=== PATIENT | male | born 1950 | race Two or more races ===

== ENCOUNTER 2020-05-10 13:49 | Outpatient (REF) | payer MEDICARE, MEDICAID, SELFPAY ==
--- NOTE | 2020-05-10 | MR_ITS ---
EXAMINATION: UNENHANCED MRI OF THE BRAIN. CLINICAL INFORMATION: Dizziness. Giddiness. COMPARISON: MRI brain 05/05/2017. TECHNIQUE: Routine unenhanced MRI of the brain. FINDINGS: No intracranial hemorrhage, tumors or acute infarcts are noted. Subcentimeter cystic foci of encephalomalacia suspicious for chronic lacunar infarcts are noted within the left parasagittal ventral alondra and bilateral thalami. A moderate number of supratentorial scattered periventricular and subcortical white matter T2 hyperintensities are noted and are suspicious for chronic small vessel ischemic changes. A mild etat crible configuration of the lentiform nuclei is noted. Patchy T2 hyperintensities are present throughout the thalami. The cervicomedullary junction cerebellar tonsils are normal in configuration. No marrow signal abnormalities are identified. Grossly normal flow-related signal intensity is identified in the major intrarenal vessels and dural sinuses. Mild bilateral proptosis is identified. Minimal retained secretions are noted within the velar recess of the maxillary sinus and in a small number of posterior right ethmoid air cells. IMPRESSION: 1. No acute abnormalities identified. 2. Moderate-marked white matter chronic small vessel ischemic disease and multiple chronic lacunar infarcts.
== END 2020-05-10 13:50 | disposition home or self-care (01) ==
LOC: HO.MRI 13:49
PROVIDERS: PCP Family Medicine; Visit Provider Family Medicine
DX: R42 Dizziness and giddiness (principal)
CPT/HCPCS: 70551

== ENCOUNTER 2020-05-14 07:37 | Outpatient (REF) | payer MEDICARE, MEDICAID, SELFPAY ==
--- NOTE | 2020-05-14 10:00 | CT_ITS ---
EXAMINATION: CT ABDOMEN AND PELVIS WITH CONTRAST CLINICAL INFORMATION: Abnormal weight loss. COMPARISON: None TECHNIQUE: Multidetector volumetric images were obtained from the superior aspect of the liver through the pubic symphysis following administration 85 mL of Omnipaque 350 intravenous contrast. Sagittal and coronal reformatted images were obtained on the technologist's workstation. Oral contrast: No This CT examination was performed using dose optimization techniques as appropriate, variously including the following: *Automated exposure control *Adjustment of mA and/or kV according to patient size (this includes techniques or standardized protocols for targeted exams where dose is matched to indication/reason for exam; i.e. extremities or head) *Use of iterative reconstruction technique DLP: 630 mGy-cm FINDINGS: LUNG BASES: There is right basal atelectasis/scarring. There is a right diaphragmatic pleural calcification. The heart size is normal. LIVER, GALLBLADDER, AND BILIARY TREE: The liver is normal in size, shape, and attenuation. No focal hepatic lesion or biliary ductal dilatation is present. The gallbladder has been surgically removed. PANCREAS: Unremarkable. SPLEEN: Unremarkable. ADRENAL GLANDS: There is a right adrenal gland lesion measuring 1.9 x 1.5 x 2.2 cm and approximately 69 Hounsfield units. The left adrenal gland appears unremarkable. KIDNEYS AND URETERS: Both kidneys are normal size with slight lobulation and mild cortical thinning, mid and lower poles, right kidney and lower pole left kidney. There is punctate 2 mm calcifications in the midpole of the right kidney; question calcification versus tiny stone. There are bilateral nonenhancing renal cysts. No enhancing renal mass or hydronephrosis seen. BLADDER: The bladder is nondistended with mild diffuse bladder wall thickening but no radiopaque calculi. GASTROINTESTINAL TRACT: There is scattered stool, oral contrast and gas seen throughout the colon without any significant distention. The small bowel loops are normal course and caliber. The appendix is normal caliber. Stool-filled redundant sigmoid colon is unremarkable. ABDOMINAL WALL: No significant hernia is appreciated. LYMPH NODES: Normal. VASCULAR: Mild atherosclerotic changes of abdominal aorta and iliac arteries are noted without aneurysmal dilatation. PELVIC VISCERA: The prostate gland is mildly enlarged. The periprostatic fat planes are preserved. OSSEOUS STRUCTURES: There is mild degenerative disc changes L5-S1 disc level with ventral spondylosis. No lytic process. IMPRESSION: 1. Moderate constipation without obstruction. 2. Slightly lobulated kidneys with cortical thinning and likely scarring. There are bilateral renal cysts. Punctate radiopaque calculi, midpole right kidney, without caliectasis or hydronephrosis. 3. Mild bladder wall thickening secondary to moderate prostate enlargement and likely obstruction. Correlate with urology. 4. No abnormal lymph nodes seen.
[2020-05-14] MEDS: iohexoL 350 MG/ML 100 ML INFUS..BTL 85 ML IV (10:23)
[2020-05-14] MEDS: Barium Sulfate Oral (Vanilla) 450 ML ORAL.SUSP 900 ML PO (10:25)
== END 2020-05-14 07:38 | disposition home or self-care (01) ==
LOC: HO.CT 07:37
PROVIDERS: PCP Family Medicine; Visit Provider Family Medicine
DX: R63.4 Abnormal weight loss (principal)
CPT/HCPCS: 74177

== ENCOUNTER 2020-05-17 08:57 | Outpatient (REF) | payer MEDICARE, MEDICAID, SELFPAY ==
--- NOTE | 2020-05-17 09:11 | XR_ITS ---
EXAMINATION: XR CHEST CLINICAL INFORMATION: Nonspecific reaction to Gamma treatment COMPARISON: None TECHNIQUE: 2 views of the chest were obtained. FINDINGS: No significant abnormality is noted involving the heart, lungs, mediastinum, bony thorax or soft tissues. XR/XR chest 2V IMPRESSION: Unremarkable chest examination.
== END 2020-05-17 08:58 | disposition home or self-care (01) ==
LOC: HO.XRAY 08:57
PROVIDERS: PCP Family Medicine; Visit Provider Internal Medicine
DX: R76.12 Nonspecific reaction to cell mediated immunity measurement of gamma interferon antigen response without active tuberculosis (principal)
CPT/HCPCS: 71046

== ENCOUNTER 2020-05-27 08:13 | Outpatient (REF) | payer MEDICARE, MEDICAID, SELFPAY ==
--- NOTE | 2020-05-27 08:40 | XR_ITS ---
EXAMINATION: XR CHEST CLINICAL INFORMATION: Nonspecific reaction. COMPARISON: 05/17/2020 chest radiographs. TECHNIQUE: 2 views of the chest were obtained. FINDINGS: No significant abnormality is noted involving the heart, lungs, mediastinum, bony thorax or soft tissues. XR/XR chest 2V IMPRESSION: No acute cardiopulmonary process.
[2020-05-30 09:32] LABS: TSpotTB Negative (SeeBelow)
== END 2020-05-27 08:14 | disposition home or self-care (01) ==
LOC: HO.LAB 08:13
PROVIDERS: Absent Provider Internal Medicine; PCP Family Medicine; Visit Provider Family Medicine
DX: R76.12 Nonspecific reaction to cell mediated immunity measurement of gamma interferon antigen response without active tuberculosis (principal)
CPT/HCPCS: 71046; 86481

== ENCOUNTER 2020-06-03 08:09 | Outpatient (REF) | payer MEDICARE, MEDICAID, SELFPAY ==
--- NOTE | 2020-06-03 08:14 | CT_ITS ---
EXAMINATION: CT CHEST WITH CONTRAST CLINICAL INFORMATION: Abnormal weight loss. COMPARISON: Plain film studies of 05/27/2020 and 05/17/2020. TECHNIQUE: Multidetector volumetric CT imaging of the chest was obtained after the administration of 65 mL of Omnipaque 350 intravenous contrast without immediate adverse reactions. Axial MIP volume rendering provided. Sagittal and coronal reformatted images were obtained. This CT examination was performed using dose optimization techniques as appropriate, variously including the following: *Automated exposure control *Adjustment of mA and/or kV according to patient size (this includes techniques or standardized protocols for targeted exams where dose is matched to indication/reason for exam; i.e. extremities or head) *Use of iterative reconstruction technique DLP: 182 mGy-cm FINDINGS: LUNGS: The central airways are patent. There is bronchial wall thickening present without bronchiectasis. No significant confluent parenchymal disease identified. There are some scattered calcified granulomas seen bilaterally. There are regions of pleural-parenchymal scarring present within the right lower lobe and lingula. No significant changes of emphysema appreciated. There is a 4 mm noncalcified nodular density seen within the right upper lobe on image 172 of 575. There is a noncalcified subpleural density seen within the right upper lobe on image 124 of 575 measuring 5 mm in diameter. There is a 6 mm noncalcified nodule seen within the right lower lobe on image 272 of 575. There is a 4 mm noncalcified nodule within the right lower lobe on image 284 of 575. MEDIASTINUM: Thyroid gland appears unremarkable. Heart normal size. No evidence of thoracic aortic aneurysm or thoracic aortic dissection. No significant calcified plaque is present. No pericardial effusion. There are some calcified lymph nodes present. No mediastinal or hilar lymphadenopathy. PLEURA: There is no pleural effusion. No pleural mass or thickening. AXILLA: No lymphadenopathy. UPPER ABDOMEN: There is a 2.2 x 1.6 cm right adrenal gland mass. OSSEOUS STRUCTURES: No destructive bony lesions identified. CT/CT chest w con IMPRESSION: 2.2 x 1.6 cm right adrenal gland mass. Adrenal gland CT study with washout could be performed for further evaluation. Old granulomatous disease. A few scattered nodules measuring up to 6 mm in diameter. According to the UPDATED 2017 Fleischner Society recommendations, the advised follow-up imaging for multiple solid nodules, the largest measuring 6 mm or greater, is: LOW RISK PATIENT: CT at 3-6 months, then consider CT at 18-24 months. HIGH RISK PATIENT: CT at 3-6 months, then at 18-24 months.
[2020-06-03] MEDS: iohexoL 350 MG/ML 100 ML INFUS..BTL IV (09:40)
== END 2020-06-03 08:10 | disposition home or self-care (01) ==
LOC: HO.CT 08:09
PROVIDERS: PCP Family Medicine; Visit Provider Family Medicine
DX: R31.9 Hematuria, unspecified (principal); E11.9 Type 2 diabetes mellitus without complications; I10 Essential (primary) hypertension; R63.4 Abnormal weight loss
CPT/HCPCS: 71260; Q9967

== ENCOUNTER 2020-08-28 16:34 | Outpatient (REF) | payer MEDICARE, MEDICAID, SELFPAY ==
--- NOTE | 2020-08-28 | XR_ITS ---
EXAMINATION: XR CHEST CLINICAL INFORMATION: Chronic obstructive pulmonary disease with acute exacerbation COMPARISON: Chest x-ray 05/27/2020. CT chest 06/03/2020 TECHNIQUE: 2 views of the chest were obtained. FINDINGS: No significant abnormality is noted involving the heart, lungs, mediastinum, bony thorax or soft tissues. XR/XR chest 2V IMPRESSION: Unremarkable examination.
== END 2020-08-28 16:35 | disposition home or self-care (01) ==
LOC: HO.XRAY 16:34
PROVIDERS: PCP Family Medicine; Visit Provider Family Medicine
DX: J44.1 Chronic obstructive pulmonary disease with (acute) exacerbation (principal)
CPT/HCPCS: 71046

== ENCOUNTER → 2020-09-12 10:58 | Outpatient (BNVA) | payer MEDICARE, MEDICAID, SELFPAY | PROVIDERS: PCP Family Medicine; Visit Provider Internal Medicine | DX: E66.9 Obesity, unspecified (principal); G47.33 Obstructive sleep apnea (adult) (pediatric); J44.9 Chronic obstructive pulmonary disease, unspecified; J30.9 Allergic rhinitis, unspecified | CPT/HCPCS: 99212 ==

== ENCOUNTER 2020-10-12 14:47 | Emergency (ER) | payer MEDICARE, MEDICAID, SELFPAY ==
--- NOTE | 2020-10-12 14:53 | ECG_ITS ---
Test Reason : CHEST PAIN Blood Pressure : / mmHG Vent. Rate : 080 BPM Atrial Rate : 080 BPM P-R Int : 142 ms QRS Dur : 084 ms QT Int : 364 ms P-R-T Axes : 044 -33 -09 degrees QTc Int : 419 ms Poor data quality Normal sinus rhythm Left axis deviation Abnormal ECG When compared with ECG of 20-JAN-2018 13:57, QRS axis Shifted left Referred By: Generic ED Physician Electronically Signed By:OLGA MCCORMICK MD
[2020-10-12 15:02] VITALS: BP 162/83; PULSE 88; RESP 20; TEMP 37; O2SAT 95
[2020-10-12 15:43] LABS: COVID-19 Test Negative (Negative); IDNOW Serial# 9DD0AD1C
[2020-10-12 15:48] VITALS: BMI 34.7
--- NOTE | 2020-10-12 16:10 | ED_ITS ---
HPI - Anxiety General Chief Complaint: Anxiety Stated Complaint: CHEST PAIN Time Seen by Provider: 10/12/20 15:56 Source: patient Mode of arrival: ambulatory History of Present Illness HPI narrative: Patient came to the hospital to see his was admitted with COVID pneumonia become very anxious when he came was very emotional felt overwhelmed was feeling short of breath and palpitation which resolved after few minutes of arrival on arrival patient heart rate was 80 beats per minute blood pressure went to 162/83 after electing for some time patient is much calmer and better would like to go home denies any chest pain at this time MD complaint: anxiety Onset (ago): minute(s) Severity: mild Related Data Home Medications Medication Instructions Recorded Confirmed albuterol sulfate 90 mcg/actuation INHALATION 09/12/20 aerosol inhaler atorvastatin 40 mg tablet mg PO 09/12/20 baclofen 10 mg tablet mg PO 09/12/20 budesonide-formoterol HFA 160 INHALATION 09/12/20 mcg-4.5 mcg/actuation aerosol inhaler duloxetine 60 mg capsule,delayed mg PO 09/12/20 release finasteride 5 mg tablet mg PO 09/12/20 fluticasone propionate 50 INTRANASAL 09/12/20 mcg/actuation nasal spray,suspension furosemide 40 mg tablet mg PO 09/12/20 gabapentin 100 mg capsule mg PO 09/12/20 hydralazine 50 mg tablet mg PO 09/12/20 isosorbide mononitrate 60 mg mg PO 09/12/20 tablet,extended release 24 hr levothyroxine 75 mcg tablet mcg PO 09/12/20 lisinopril 10 mg tablet mg PO 09/12/20 meclizine 25 mg tablet mg PO 09/12/20 metformin 850 mg tablet mg PO 09/12/20 metoprolol succinate 100 mg mg PO 09/12/20 tablet,extended release 24 hr montelukast 10 mg tablet mg PO 09/12/20 nitroglycerin 0.4 mg sublingual mg SUBLINGUAL 09/12/20 tablet quetiapine 100 mg tablet mg PO 09/12/20 tamsulosin 0.4 mg capsule mg PO 09/12/20 temazepam 30 mg capsule mg PO 09/12/20 tiotropium bromide 18 mcg capsule INHALATION 09/12/20 with inhalation device trazodone 150 mg tablet mg PO 09/12/20 Previous Rx's Medication Instructions Recorded albuterol sulfate 2.5 mg INHALATION Q4-6H PRN 30 09/12/20 Days #75 ml Allergies Allergy/AdvReac Type Severity Reaction Status Date / Time No Known Drug Allergies Allergy Unknown NKDA Verified 09/12/20 11:27 Environmental Allergy Unknown RUNNING Uncoded 04/11/20 14:58 NOSE, ITCHING SNEEZING Review of Systems Review of Systems: Constitutional : No Weight loss, No Fever, No Chills ENT/Mouth : No sore throat, No Rhinorrhea Eyes: No Eye Pain, No Swelling Cardiovascular : No Chest Pain, no palpitations Respiratory : No Cough, No Sputum, + shortness of breath Gastrointestinal : no Nausea, No Vomiting, No Diarrhea, No abdominal Pain, no black stools Genitourinary : No Dysuria, No Urinary Frequency Musculoskeletal : No joint pain, No Myalgias, No Joint Swelling Skin : No Skin Lesions, No rash Neuro : No Weakness, No Numbness, No Dizziness, No Headache Psych : + Anxiety/Panic, No Depression Heme/Lymph: No Bruising, No Lymphadenopathy Endocrine : No Polyuria, No Polydipsia All other systems reviewed and are negative FOR[facility]LY [facility] Past Medical History Medical History Allergic rhinitis COPD (chronic obstructive pulmonary disease) Hypertension Obesity (BMI 30-39.9) LUCA (obstructive sleep apnea) Social History Social History Advance Directives: Yes Advance Directives on File: Yes Advance Directives Date on File: 05/14/20 Physical Exam Vital Signs: Vital Signs: Last Vital Signs Temp 98.6 F 10/12/20 15:02 Pulse 79 10/12/20 16:26 Resp 18 10/12/20 16:26 BP 149/89 H 10/12/20 16:26 Pulse Ox 98 10/12/20 16:26 Body Mass Index 34.7 Appearance: Alert. Oriented X3. No acute distress. Relaxed now Eyes: Pupils equal, round and reactive to light. ENT: Pharynx normal. Neck: Normal inspection. Neck supple. CVS: Normal heart rate and rhythm. Pulses normal. Respiratory: No respiratory distress. Breath sounds normal. Abdomen: Soft and nontender. Bowel sounds are present, no mass palpable, no CVA tenderness Skin: Skin warm and dry. Normal skin color. Normal skin turgor. Extremities: No lower extremity edema. Neuro: Oriented X 3. No motor deficit. No sensory deficit. MDM - Anxiety MDM Narrative Medical decision making narrative: Patient with acute anxiety stable vitals feeling much better after resting for few minutes COVID test was done which was negative and EKG was negative for any acute ischemia will discharge patient home Differential Diagnosis Differential diagnosis: Likely hyperventilation and acute anxiety Lab Data Labs: Lab Results 10/12/20 Range/Units 15:10 COVID-19 ([facility]) Negative (Negative) COVID-19 Clin Com See Note ECG Data Attestation: I personally reviewed and interpreted this ECG as follows: Interpretation: Normal sinus rhythm heart rate 80 beats per minute left axis deviation normal interval normal ST-T wave, no acute ischemia Discharge Plan Discharge Clinical Impression: Acute anxiety Patient Disposition: Home, Self-Care Instructions: Anxiety (ED) Additional Instructions: Rest at home follow-up with PCP if any concerns Prescriptions: No Action atorvastatin 40 mg tablet PO RF: 0 baclofen 10 mg tablet PO RF: 0 meclizine 25 mg tablet PO RF: 0 metformin 850 mg tablet PO RF: 0 duloxetine 60 mg capsule,delayed release(DR/EC) PO RF: 0 levothyroxine 75 mcg tablet PO RF: 0 albuterol sulfate 90 mcg/actuation HFA aerosol inhaler inhalation RF: 0 trazodone 150 mg tablet PO RF: 0 temazepam 30 mg capsule PO RF: 0 quetiapine 100 mg tablet PO RF: 0 isosorbide mononitrate 60 mg tablet extended release 24 hr PO RF: 0 fluticasone propionate 50 mcg/actuation spray,suspension intranasal RF: 0 montelukast 10 mg tablet PO RF: 0 hydralazine 50 mg tablet PO RF: 0 finasteride 5 mg tablet PO RF: 0 tamsulosin 0.4 mg capsule PO RF: 0 gabapentin 100 mg capsule PO RF: 0 metoprolol succinate 100 mg tablet extended release 24 hr PO RF: 0 lisinopril 10 mg tablet PO RF: 0 budesonide-formoterol 160-4.5 mcg/actuation HFA aerosol inhaler inhalation RF: 0 Spiriva with HandiHaler 18 mcg capsule, w/inhalation device inhalation RF: 0 furosemide 40 mg tablet PO RF: 0 nitroglycerin 0.4 mg tablet, sublingual sublingual RF: 0 albuterol sulfate 2.5 mg /3 mL (0.083 %) solution for nebulization 2.5 mg inhalation Q4-6H PRN (Reason: shortness of breath or wheezing) 30 Days Qty: 75 RF: 1
[2020-10-12 16:26] VITALS: BP 149/89; PULSE 79; RESP 18; O2SAT 98
== END 2020-10-12 18:00 | disposition home or self-care (01) ==
PROVIDERS: Emergency Provider Internal Medicine; PCP Family Medicine
DX: R07.9 Chest pain, unspecified (principal); F41.1 Generalized anxiety disorder; F43.0 Acute stress reaction; I10 Essential (primary) hypertension; Z20.822 Contact with and (suspected) exposure to COVID-19; Z79.899 Other long term (current) drug therapy
CPT/HCPCS: 36415; 87635; 93005; 99282; 99283

== ENCOUNTER 2020-11-01 15:33 | Outpatient (REF) | payer MEDICARE, MEDICAID, SELFPAY ==
--- NOTE | ~2020-11-01 | US_ITS ---
EXAMINATION: US SOFT TISSUE NECK CLINICAL INFORMATION: Swelling, mass neck. COMPARISON: None. TECHNIQUE: Ultrasound of the left neck soft tissues inferior to ear and right side for comparison is performed with high- frequency covarrubias-scale imaging and color Doppler. FINDINGS: Imaging through the left infra-auricular region is a small isoechoic lump to surrounding fat measuring 3.1 x 1.3 x 3.3 cm. It is noncompressible and characteristics of a lymph node. This may represent a small lipoma no vascularity seen within. US/US soft tiss head and/or neck IMPRESSION: Small lump inferior to left ear, likely lipoma. It corresponds to the palpable lump as per the patient.
== END 2020-11-01 15:34 | disposition home or self-care (01) ==
LOC: HO.US 15:33
PROVIDERS: Visit Provider Registered Nurse Community Health
DX: R22.1 Localized swelling, mass and lump, neck (principal)
CPT/HCPCS: 76536

== ENCOUNTER 2020-11-25 09:57 | Day surgery (SDC) | payer MEDICARE, MEDICAID, SELFPAY ==
--- NOTE | 2020-11-20 12:27 | MHC.SHP ---
Pre-Procedural Eval Section A The patient is an INPATIENT: No The History & Physical has been completed within 30 days and I have reviewed it.: Yes Section B Chief Complaint: Cataract Right Eye Allergies: Allergies Allergy/AdvReac Type Severity Reaction Status Date / Time Environmental Allergy Intermediate RUNNING Uncoded 10/30/20 09:05 NOSE, ITCHING SNEEZING Plan Diagnosis/Plan: Unchanged I have reviewed the history and physical and performed a pertinent physical examination on my patient. No changes have occurred unless specified.
[2020-11-25 12:03] VITALS: BMI 34.3
[2020-11-25 12:15] LABS: Glucose, Whole Blood 106 mg/dL (60-115)
[2020-11-25] MEDS: Tetracaine HCl/PF 0.5% Oph Sol 4 ML DROPS 1 DROP EYE-RIGHT (12:19)
[2020-11-25 12:21] VITALS: BP 155/93; PULSE 61; RESP 16; TEMP 36.6; O2SAT 97
[2020-11-25] MEDS: Tropicamide 1 % Ophth Sol 3 ML BTL 1 DROP EYE-RIGHT ×3 (12:25→12:41)
[2020-11-25] MEDS: Phenylephrine HCL 2.5% Oph SoL 2 ML BOTTLE 1 DROP EYE-RIGHT ×3 (12:33→12:43)
[2020-11-25] MEDS: Lactated Ringers 500 ML 50 ML IV (12:44)
--- NOTE | 2020-11-25 12:59 | P.CONAN_ITS ---
HPI - Anesthesia Eval Consult details Narrative: 70 yo male patient here for Right cataract extraction, IOL implan tation PMFSH Active Problems Active Problems: All Active Problems (Updated 10/30/20 @ 09:00 by Jesi Mancera) Allergic rhinitis (Acute) COPD (chronic obstructive pulmonary disease) (Acute) LUCA (obstructive sleep apnea) (Acute) Obesity (BMI 30-39.9) (Acute) Past Medical History Medical History (Updated 11/25/20 @ 13:15 by Evelin Garrett) Allergic rhinitis Asthma BPH (benign prostatic hyperplasia) Chronic low back pain COPD (chronic obstructive pulmonary disease) Coronary artery disease COVID-19 vaccine administered Diabetes Hyperlipidemia Hypertension Obesity (BMI 30-39.9) LUCA (obstructive sleep apnea) Personal history of COVID-19 Family History Family history of problems with anesthesia: No Surgical History Surgical History H/O colonoscopy History of esophagogastroduodenoscopy (EGD) Hx of circumcision History of Problems with Anesthesia: No Social History Social History Smoking Status: Never smoker Tobacco Type: Cigarette Use of substances other than those prescribed or required for medical reasons: No Are you DNR?: No Advance Directives: No Advance Directives Information Provided: Yes Advance Directives Date on File: 05/14/20 Meds Allergies Allergy/AdvReac Type Severity Reaction Status Date / Time Environmental Allergy Intermediate RUNNING Uncoded 10/30/20 09:05 NOSE, ITCHING SNEEZING Active Medications: Current Medications Generic Name Dose Route Start Last Admin Trade Name Freq PRN Reason Stop Dose Admin Albuterol Sulfate 2.5 mg 11/25/20 11:53 Albuterol Sulfate (0.083%) 2.5 Mg/3 Ml Vial.Neb INHALE ONCE PRN Shortness of Breath/Wheezing Lactated Ringer's 500 mls @ 50 mls/hr 11/25/20 12:00 11/25/20 12:44 Lr IV 11/25/20 21:59 50 mls/hr .Q10H ORAL Administration Povidone Iodine 1 appl 11/25/20 11:53 Povidone Iodine 5 % Ophth Soln 30 Ml Bottle EYE-RIGHT PREOP PRN Pre-Op Surgical Implant Prophy Home Medications Medication Instructions Recorded Confirmed Last Taken Type metformin 850 mg tablet 850 mg PO BID 09/12/20 10/30/20 Unknown History nitroglycerin 0.4 mg sublingual 0.4 mg SUBLINGUAL ONCE PRN 09/12/20 10/30/20 Unknown History tablet albuterol sulfate 90 mcg/actuation 2 inh INHALATION Q6H PRN g 10/24/20 10/30/20 Unknown History aerosol inhaler atorvastatin 40 mg tablet 40 mg PO DAILY tab 10/24/20 10/30/20 Unknown History baclofen 10 mg tablet 10 mg PO BEDTIME PRN tab 10/24/20 10/30/20 Unknown History budesonide-formoterol HFA 160 2 puff INHALATION BID g 10/24/20 10/30/20 Unknown History mcg-4.5 mcg/actuation aerosol inhaler duloxetine 60 mg capsule,delayed 60 mg PO DAILY cap 10/24/20 10/30/20 Unknown History release finasteride 5 mg tablet 5 mg PO DAILY tab 10/24/20 10/30/20 Unknown History fluticasone propionate 50 2 spray INTRANASAL DAILY g 10/24/20 10/30/20 Unknown History mcg/actuation nasal spray,suspension furosemide 40 mg tablet 40 mg PO DAILY tab 10/24/20 10/30/20 Unknown History gabapentin 100 mg capsule 100 mg PO TID PRN cap 10/24/20 10/30/20 Unknown History hydralazine 50 mg tablet 50 mg PO BID tab 10/24/20 10/30/20 Unknown History isosorbide mononitrate 60 mg 60 mg PO DAILY tab 10/24/20 10/30/20 Unknown History tablet,extended release 24 hr levothyroxine 75 mcg tablet 75 mcg PO DAILY tab 10/24/20 10/30/20 Unknown History lisinopril 10 mg tablet 10 mg PO DAILY tab 10/24/20 10/30/20 Unknown History meclizine 25 mg tablet 25 mg PO TID PRN tab 10/24/20 10/30/20 Unknown History metoprolol succinate 100 mg 100 mg PO DAILY tab 10/24/20 10/30/20 Unknown History tablet,extended release 24 hr montelukast 10 mg tablet 10 mg PO DAILY tab 10/24/20 10/30/20 Unknown History quetiapine 100 mg tablet 100 mg PO BEDTIME tab 10/24/20 10/30/20 Unknown History tamsulosin 0.4 mg capsule 0.4 mg PO BEDTIME cap 10/24/20 10/30/20 Unknown History temazepam 30 mg capsule 30 mg PO BEDTIME cap 10/24/20 10/30/20 Unknown History tiotropium bromide 18 mcg capsule 1 cap INHALATION DAILY 10/24/20 10/30/20 Unknown History with inhalation device trazodone 150 mg tablet 150 mg PO BEDTIME tab 10/24/20 10/30/20 Unknown History Exam Exam Date and Time: November 25, 2020 1259 Height,Weight and Vital Signs: Height 5 ft 8 in Weight 102.512 kg Last Vital Signs Temp 97.8 F 11/25/20 12:21 Pulse 61 11/25/20 12:21 Resp 16 11/25/20 12:21 BP 155/93 H 11/25/20 12:21 Pulse Ox 97 11/25/20 12:21 Pertinent Lab Results Pertinent Lab Results: Laboratory Tests 11/25/20 12:12 POC Glucose 106 Airway Mallampati Class: III TM Dist: >3cm Neck ROM: Full Heart: RRR Lungs: CTAB Assessment and Plan Assessment Anesthesia Assessment: Anesthesia Plan Discussed and Chart Reviewed Final Anesthetic Review NPO: Yes ASA Class: III Final Preanesthetic Review: No Changes in Pt Med Stat, Meds/Allgs Chart Reviewed, Consent Obtained/Reviewed and Anes Risks/Benef Reviewed Patient Risk: Intermediate Procedure Risk: Low Assessment/Block/Sedation in SS: Assess/Block/Sedation-SS Anesthetic Plan Anesthetic Plan: MAC: Disposition: Standard PACU
--- NOTE | 2020-11-25 13:38 | HO.PNOPHT ---
Ophthalmology Procedure Procedure Date of Service: 11/25/20 Ophthalmology Viscoelastic: Healon Duet Dual Pack Pro Ophthalmology Lenses: TECNIS [id number] (20.5) Procedure Notes: PREOPERATIVE DIAGNOSIS: Decreased visual acuity right eye secondary to cataract POSTOPERATIVE DIAGNOSIS: Same PROCEDURE: Right cataract extraction with intraocular lens insertion SURGEON: Chino Oneil M.D. ANESTHESIA: Topical/MAC ESTIMATED BLOOD LOSS: None COMPLICATIONS: None After obtaining informed consent, the patient was brought to the operating room suite and placed in the supine position. After adequate sedation per anesthesia, topical drops of Tetracaine were given to the right eye. The eye was then prepped and draped in the usual sterile fashion. The operating room microscope was then positioned over the operative eye and a lid speculum placed. A paracentesis was created. Viscoelastic was then instilled into the anterior chamber. A three plane incision was then created temporally, utilizing a 2.85 mm keratome. Capsulotomy forceps were then utilized to create a circular tear capsulotomy. Hydrodissection and hydrodelineation were carried out until adequate mobilization of the nucleus occurred. Phacoemulsification was then utilized to remove the dense central nucleus followed by removal of the cortical material utilizing the automated aspiration irrigation unit. Viscoelastic was instilled into the posterior capsular bag followed by placement of a posterior chamber intraocular lens without difficulty. The residual Viscoelastic was then removed utilizing the automated IA machine. The wound was checked and found to be watertight. The patient tolerated the procedure well and the lid speculum was removed. Intracameral injection of Vigamox 0.1 mL followed by a subtenon injection of Kenalog-40 0.2 mL were administered. The patient will be seen in the a.m.
[2020-11-25 13:40] VITALS: BP 146/82; PULSE 68; RESP 16; TEMP 36.2; O2SAT 97
== END 2020-11-25 15:05 | disposition home or self-care (01) ==
PROVIDERS: PCP Family Medicine; Visit Provider Ophthalmology
PROC: (CPT 66985; principal; 2020-11-25 13:00)
DX: H25.11 Age-related nuclear cataract, right eye (principal); H54.7 Unspecified visual loss; J44.9 Chronic obstructive pulmonary disease, unspecified; I10 Essential (primary) hypertension; E11.9 Type 2 diabetes mellitus without complications; G47.33 Obstructive sleep apnea (adult) (pediatric); Z79.51 Long term (current) use of inhaled steroids; Z79.84 Long term (current) use of oral hypoglycemic drugs; Z79.899 Other long term (current) drug therapy; Z86.16 Personal history of COVID-19
CPT/HCPCS: 66984; 82947; J2250; J3010; J3300; V2632

== ENCOUNTER 2020-12-09 09:28 | Day surgery (SDC) | payer MEDICARE, MEDICAID, SELFPAY ==
--- NOTE | 2020-12-04 12:32 | HO.ANESPROP2 ---
Documented by User: Kristine Tellez 12/04/20 12:34 HPI - Anesthesia Eval Consult details Narrative: 70yo M for Left Cataract Extraction IOL Insertion PCP cleared Right eye 5/3 with TIVA: Fent 50, Midaz 2 PMFSH Active Problems Active Problems: All Active Problems (Updated 11/25/20 @ 13:15 by Evelin Garrett) Coronary artery disease (Acute) Chronic low back pain (Acute) Asthma (Acute) Hyperlipidemia (Acute) BPH (benign prostatic hyperplasia) (Acute) Diabetes (Acute) Allergic rhinitis (Acute) COPD (chronic obstructive pulmonary disease) (Acute) LUCA (obstructive sleep apnea) (Acute) Obesity (BMI 30-39.9) (Acute) Past Medical History Medical History Allergic rhinitis Asthma BPH (benign prostatic hyperplasia) Chronic low back pain COPD (chronic obstructive pulmonary disease) Coronary artery disease COVID-19 vaccine administered Diabetes Hyperlipidemia Hypertension Obesity (BMI 30-39.9) LUCA (obstructive sleep apnea) Personal history of COVID-19 Family History Family history of problems with anesthesia: No Surgical History Surgical History (Updated 12/09/20 @ 11:07 by Evelin Garrett) H/O colonoscopy History of esophagogastroduodenoscopy (EGD) History of right cataract surgery Hx of circumcision History of Problems with Anesthesia: No Social History Social History Smoking Status: Never smoker Tobacco Type: Cigarette Use of substances other than those prescribed or required for medical reasons: No Are you DNR?: No Advance Directives: No Advance Directives Information Provided: Yes Advance Directives Date on File: 05/14/20 Meds Allergies Allergy/AdvReac Type Severity Reaction Status Date / Time Environmental Allergy Intermediate RUNNING Uncoded 10/30/20 09:05 NOSE, ITCHING SNEEZING Home Medications Medication Instructions Recorded Confirmed Last Taken Type metformin 850 mg tablet 850 mg PO BID 09/12/20 10/30/20 Unknown History nitroglycerin 0.4 mg sublingual 0.4 mg SUBLINGUAL ONCE PRN 09/12/20 10/30/20 Unknown History tablet albuterol sulfate 90 mcg/actuation 2 inh INHALATION Q6H PRN g 10/24/20 10/30/20 Unknown History aerosol inhaler atorvastatin 40 mg tablet 40 mg PO DAILY tab 10/24/20 10/30/20 Unknown History baclofen 10 mg tablet 10 mg PO BEDTIME PRN tab 10/24/20 10/30/20 Unknown History budesonide-formoterol HFA 160 2 puff INHALATION BID g 10/24/20 10/30/20 Unknown History mcg-4.5 mcg/actuation aerosol inhaler duloxetine 60 mg capsule,delayed 60 mg PO DAILY cap 10/24/20 10/30/20 Unknown History release finasteride 5 mg tablet 5 mg PO DAILY tab 10/24/20 10/30/20 Unknown History fluticasone propionate 50 2 spray INTRANASAL DAILY g 10/24/20 10/30/20 Unknown History mcg/actuation nasal spray,suspension furosemide 40 mg tablet 40 mg PO DAILY tab 10/24/20 10/30/20 Unknown History gabapentin 100 mg capsule 100 mg PO TID PRN cap 10/24/20 10/30/20 Unknown History hydralazine 50 mg tablet 50 mg PO BID tab 10/24/20 10/30/20 Unknown History isosorbide mononitrate 60 mg 60 mg PO DAILY tab 10/24/20 10/30/20 Unknown History tablet,extended release 24 hr levothyroxine 75 mcg tablet 75 mcg PO DAILY tab 10/24/20 10/30/20 Unknown History lisinopril 10 mg tablet 10 mg PO DAILY tab 10/24/20 10/30/20 Unknown History meclizine 25 mg tablet 25 mg PO TID PRN tab 10/24/20 10/30/20 Unknown History metoprolol succinate 100 mg 100 mg PO DAILY tab 10/24/20 10/30/20 Unknown History tablet,extended release 24 hr montelukast 10 mg tablet 10 mg PO DAILY tab 10/24/20 10/30/20 Unknown History quetiapine 100 mg tablet 100 mg PO BEDTIME tab 10/24/20 10/30/20 Unknown History tamsulosin 0.4 mg capsule 0.4 mg PO BEDTIME cap 10/24/20 10/30/20 Unknown History temazepam 30 mg capsule 30 mg PO BEDTIME cap 10/24/20 10/30/20 Unknown History tiotropium bromide 18 mcg capsule 1 cap INHALATION DAILY 10/24/20 10/30/20 Unknown History with inhalation device trazodone 150 mg tablet 150 mg PO BEDTIME tab 10/24/20 10/30/20 Unknown History Exam Exam Date and Time: December 04, 2020 1232 Assessment and Plan Assessment Anesthesia Assessment: Chart Reviewed Documented by User: Evelin Garrett 12/09/20 11:34 [facility] Past Medical History Medical History Allergic rhinitis Asthma BPH (benign prostatic hyperplasia) Chronic low back pain COPD (chronic obstructive pulmonary disease) Coronary artery disease COVID-19 vaccine administered Diabetes Hyperlipidemia Hypertension Obesity (BMI 30-39.9) LUCA (obstructive sleep apnea) Personal history of COVID-19 Surgical History Surgical History (Updated 12/09/20 @ 11:07 by Evelin Garrett) H/O colonoscopy History of esophagogastroduodenoscopy (EGD) History of right cataract surgery Hx of circumcision Social History Social History Smoking Status: Never smoker Tobacco Type: Cigarette Use of substances other than those prescribed or required for medical reasons: No Are you DNR?: No Advance Directives: No Advance Directives Information Provided: Yes Advance Directives Date on File: 05/14/20 Meds Allergies Allergy/AdvReac Type Severity Reaction Status Date / Time Environmental Allergy Intermediate RUNNING Uncoded 10/30/20 09:05 NOSE, ITCHING SNEEZING Home Medications Medication Instructions Recorded Confirmed Last Taken Type metformin 850 mg tablet 850 mg PO BID 09/12/20 10/30/20 Unknown History nitroglycerin 0.4 mg sublingual 0.4 mg SUBLINGUAL ONCE PRN 09/12/20 10/30/20 Unknown History tablet albuterol sulfate 90 mcg/actuation 2 inh INHALATION Q6H PRN g 10/24/20 10/30/20 Unknown History aerosol inhaler atorvastatin 40 mg tablet 40 mg PO DAILY tab 10/24/20 10/30/20 Unknown History baclofen 10 mg tablet 10 mg PO BEDTIME PRN tab 10/24/20 10/30/20 Unknown History budesonide-formoterol HFA 160 2 puff INHALATION BID g 10/24/20 10/30/20 Unknown History mcg-4.5 mcg/actuation aerosol inhaler duloxetine 60 mg capsule,delayed 60 mg PO DAILY cap 10/24/20 10/30/20 Unknown History release finasteride 5 mg tablet 5 mg PO DAILY tab 10/24/20 10/30/20 Unknown History fluticasone propionate 50 2 spray INTRANASAL DAILY g 10/24/20 10/30/20 Unknown History mcg/actuation nasal spray,suspension furosemide 40 mg tablet 40 mg PO DAILY tab 10/24/20 10/30/20 Unknown History gabapentin 100 mg capsule 100 mg PO TID PRN cap 10/24/20 10/30/20 Unknown History hydralazine 50 mg tablet 50 mg PO BID tab 10/24/20 10/30/20 Unknown History isosorbide mononitrate 60 mg 60 mg PO DAILY tab 10/24/20 10/30/20 Unknown History tablet,extended release 24 hr levothyroxine 75 mcg tablet 75 mcg PO DAILY tab 10/24/20 10/30/20 Unknown History lisinopril 10 mg tablet 10 mg PO DAILY tab 10/24/20 10/30/20 Unknown History meclizine 25 mg tablet 25 mg PO TID PRN tab 10/24/20 10/30/20 Unknown History metoprolol succinate 100 mg 100 mg PO DAILY tab 10/24/20 10/30/20 Unknown History tablet,extended release 24 hr montelukast 10 mg tablet 10 mg PO DAILY tab 10/24/20 10/30/20 Unknown History quetiapine 100 mg tablet 100 mg PO BEDTIME tab 10/24/20 10/30/20 Unknown History tamsulosin 0.4 mg capsule 0.4 mg PO BEDTIME cap 10/24/20 10/30/20 Unknown History temazepam 30 mg capsule 30 mg PO BEDTIME cap 10/24/20 10/30/20 Unknown History tiotropium bromide 18 mcg capsule 1 cap INHALATION DAILY 10/24/20 10/30/20 Unknown History with inhalation device trazodone 150 mg tablet 150 mg PO BEDTIME tab 10/24/20 10/30/20 Unknown History Exam Height,Weight and Vital Signs: Vital Signs Temp Pulse Resp BP Pulse Ox 12/09/20 10:51 97.0 F 62 16 169/80 H 97 Pertinent Lab Results Pertinent Lab Results: Lab Results 12/09/20 Range/Units 10:35 POC Glucose 108 (60-115) mg/dL 12/09/20 12lead EKG: SB59 with PACs. LAD. Nonspecific T wave inversion Narrative Narrative: No change in medical history since last visit for cataract surgery ? Inverted T waves on monitor. Denies h/o CP but h/o DM. On Isosorbide mononitrate. 12 lead EKG obtained. Airway Mallampati Class: III TM Dist: >3cm Neck ROM: Full Heart: RRR Lungs: CTAB Assessment and Plan Assessment Anesthesia Assessment: Anesthesia Plan Discussed and Chart Reviewed Final Anesthetic Review NPO: Yes ASA Class: III Final Preanesthetic Review: No Changes in Pt Med Stat, Meds/Allgs Chart Reviewed, Consent Obtained/Reviewed and Anes Risks/Benef Reviewed Patient Risk: Intermediate Procedure Risk: Low Assessment/Block/Sedation in SS: Assess/Block/Sedation-SS Anesthetic Plan Anesthetic Plan: MAC: Disposition: Standard PACU
--- NOTE | 2020-12-04 15:25 | MHC.SHP ---
Pre-Procedural Eval Section A The patient is an INPATIENT: No The History & Physical has been completed within 30 days and I have reviewed it.: Yes Section B Chief Complaint: Cataract Left Eye Allergies: Allergies Allergy/AdvReac Type Severity Reaction Status Date / Time Environmental Allergy Intermediate RUNNING Uncoded 10/30/20 09:05 NOSE, ITCHING SNEEZING Plan Diagnosis/Plan: Unchanged I have reviewed the history and physical and performed a pertinent physical examination on my patient. No changes have occurred unless specified.
--- NOTE | 2020-12-09 | ECG_ITS ---
Test Reason : PREOP Blood Pressure : / mmHG Vent. Rate : 059 BPM Atrial Rate : 059 BPM P-R Int : 160 ms QRS Dur : 100 ms QT Int : 396 ms P-R-T Axes : 031 -32 -51 degrees QTc Int : 392 ms Sinus bradycardia with Premature atrial complexes Left axis deviation Nonspecific T wave abnormality Abnormal ECG When compared with ECG of 12-OCT-2020 14:54, Premature atrial complexes are now Present T wave inversion more evident in Inferior leads Referred By: Evelin Garrett Electronically Signed By:OLGA MCCORMICK MD
[2020-12-09 10:28] VITALS: BMI 34.2
[2020-12-09 10:39] LABS: Glucose, Whole Blood 108 mg/dL (60-115)
[2020-12-09] MEDS: Lactated Ringers 500 ML 50 ML IV (10:47)
[2020-12-09] MEDS: Tetracaine HCl/PF 0.5% Oph Sol 4 ML DROPS 1 DROP EYE-LEFT (10:47)
[2020-12-09] MEDS: Tropicamide 1 % Ophth Sol 3 ML BTL 1 DROP EYE-LEFT ×3 (10:49→11:05)
[2020-12-09 10:51] VITALS: BP 169/80; PULSE 62; RESP 16; TEMP 36.1; O2SAT 97
[2020-12-09] MEDS: Phenylephrine HCL 2.5% Oph SoL 2 ML BOTTLE 1 DROP EYE-LEFT ×3 (10:54→11:12)
--- NOTE | 2020-12-09 11:36 | HO.PNOPHT ---
Ophthalmology Procedure Procedure Date of Service: 12/09/20 Ophthalmology Viscoelastic: Healon Duet Dual Pack Pro Ophthalmology Lenses: TECBLAIR LE1471 (20) Procedure Notes: PREOPERATIVE DIAGNOSIS: Decreased visual acuity left eye secondary to cataract POSTOPERATIVE DIAGNOSIS: Same PROCEDURE: Left cataract extraction with intraocular lens insertion SURGEON: Chino Oneil M.D. ANESTHESIA: Topical/MAC ESTIMATED BLOOD LOSS: None COMPLICATIONS: None After obtaining informed consent, the patient was brought to the operation room suite and placed in the supine position. After adequate sedation per anesthesia, topical drops of Tetracaine were given to the left eye. The eye was then prepped and draped in the usual sterile fashion. The operating room microscope was then positioned over the operative eye and a lid speculum placed. A paracentesis was created. Viscoelastic was then instilled into the anterior chamber. A three plane incision was then created temporally, utilizing a 2.85 mm keratome. Capsulotomy forceps were then utilized to create a circular tear capsulotomy. Hydrodissection and hydrodelineation were carried out until adequate mobilization of the nucleus occurred. Phacoemulsification was then utilized to remove the dense central nucleus followed by removal of the cortical material utilizing the automated aspiration irrigation unit. Viscoat elastic was instilled into the posterior capsular bag followed by placement of a posterior chamber intraocular lens without difficulty. The residual Viscoat elastic was then removed utilizing the automated IA machine. The wound was check and found to be watertight. The patient tolerated the procedure well and the lid speculum was removed. Intracameral injection of Vigamox 0.1 mL followed by a subtenon injection of Kenalog-40 0.2 mL were administered. The patient will be seen in the a.m.
[2020-12-09 11:57] VITALS: BP 175/100; PULSE 82; RESP 18; TEMP 36.8; O2SAT 93
[2020-12-09 12:02] VITALS: BP 133/67; PULSE 77; RESP 18; O2SAT 94
== END 2020-12-09 12:28 | disposition home or self-care (01) ==
PROVIDERS: PCP Family Medicine; Visit Provider Ophthalmology
PROC: (CPT 66985; principal; 2020-12-09 12:00)
DX: H25.12 Age-related nuclear cataract, left eye (principal); H52.4 Presbyopia; I10 Essential (primary) hypertension; J44.9 Chronic obstructive pulmonary disease, unspecified; E11.9 Type 2 diabetes mellitus without complications; G47.33 Obstructive sleep apnea (adult) (pediatric); Z86.16 Personal history of COVID-19; Z79.51 Long term (current) use of inhaled steroids; Z79.84 Long term (current) use of oral hypoglycemic drugs; Z79.899 Other long term (current) drug therapy
CPT/HCPCS: 66984; 82947; 93005; J2250; J3010; J3300; V2632

== ENCOUNTER 2021-03-14 09:30 | Outpatient (REF) | payer MEDICARE, MEDICAID, SELFPAY ==
--- NOTE | ~2021-03-14 | CT_ITS ---
EXAMINATION: CT CHEST without contrast, ABDOMEN AND PELVIS without and with WITH CONTRAST CLINICAL INFORMATION: Weight loss, adrenal mass COMPARISON: 06/03/2020 and 05/14/2020 TECHNIQUE: Multidetector volumetric imaging was performed from the chest without contrast. Abdomen without contrast followed by abdomen and pelvis following 85 mL of Omnipaque 350 intravenous contrast. Sagittal and coronal reformatted images were obtained on the technologist workstation. This CT examination was performed using dose optimization techniques as appropriate, variously including the following: *Automated exposure control *Adjustment of mA and/or kV according to patient size (this includes techniques or standardized protocols for targeted exams where dose is matched to indication/reason for exam; i.e. extremities or head) *Use of iterative reconstruction technique DLP: 351 mGy-cm FINDINGS: CHEST: LUNGS: Stable. Known pulmonary nodules upper lobe and right base unchanged. No new findings. MEDIASTINUM: The mediastinum is normal. Central vascular structures are unremarkable. No hilar or mediastinal lymphadenopathy. PERICARDIUM/PLEURA: There is no significant effusion. No pleural mass or thickening. CHEST WALL/AXILLA: Unremarkable. ABDOMEN/PELVIS: LIVER, GALLBLADDER, BILIARY TREE: The liver is normal in size, shape, and attenuation. No focal hepatic lesion or biliary ductal dilatation is present. Clips consistent with cholecystectomy. PANCREAS: Unremarkable. SPLEEN: Unremarkable. ADRENAL GLANDS: 2 cm right adrenal lesion measures 5 Hounsfield units on the nonenhanced study. Left adrenal gland is normal. Washout characteristics are consistent with a lipid poor adenoma. KIDNEYS AND URETERS: The kidneys are normal in size, shape, and attenuation. No hydronephrosis or hydroureter or calculi seen. No perinephric stranding. Tiny renal cortical cysts noted. BLADDER: Notably thickened with associated marked hypertrophy of the prostate gland. GASTROINTESTINAL TRACT: The small and large bowel are unremarkable. The appendix is unremarkable. ABDOMINAL WALL: No hernia is demonstrated. LYMPH NODES: Normal. VASCULAR: Unremarkable. PELVIC VISCERA: Unremarkable. OSSEOUS STRUCTURES: Unremarkable. CT/CT abdomen pelvis wo/w con IMPRESSION: 1. No discrete abnormality spleen patient's symptoms. 2. Right adrenal gland lesion is stable and consistent with a adenoma. 3. No new findings. Stable lung nodules favoring granulomata. 4. Markedly enlarged prostate gland. Appearance is similar to baseline.
[2021-03-14] MEDS: iohexoL 350 MG/ML 100 ML INFUS..BTL IV (12:19)
== END 2021-03-14 09:31 | disposition home or self-care (01) ==
LOC: HO.CT 09:30
PROVIDERS: Visit Provider Family Medicine
DX: R63.4 Abnormal weight loss (principal)
CPT/HCPCS: 71250; 74178; Q9967

== ENCOUNTER 2021-04-08 14:57 | Outpatient (REF) | payer MEDICARE, MEDICAID, SELFPAY ==
--- NOTE | ~2021-04-08 | US_ITS ---
EXAMINATION: US VENOUS ULTRASOUND WITH DOPPLER LOWER EXTREMITY, BILATERAL CLINICAL INFORMATION: Increased swelling and pain. COMPARISON: None TECHNIQUE: Ultrasound of the deep veins is performed from the hip to the calf with compression sonography and color and pulse Doppler assessment. Spectral analysis with color-flow imaging is performed. FINDINGS: RIGHT: There is normal venous compression and respiratory variation and augmented flow. The visualized common femoral vein, superficial femoral vein, profunda femoral vein, popliteal vein, and the trifurcation region shows no evidence of deep venous thrombosis. There is no significant popliteal fossa cyst. There is no calf swelling. LEFT: There is normal venous compression and respiratory variation and augmented flow. The visualized common femoral vein, superficial femoral vein, profunda femoral vein, popliteal vein, and the trifurcation region shows no evidence of deep venous thrombosis. There is no significant popliteal fossa cyst. There is no calf swelling. If the patient's symptoms persist, followup ultrasound in 5 days 7 days might be of value to exclude proximal propagation from a non-visualized calf vein. US/US venous duplex LE BI IMPRESSION: No DVT demonstrated in the bilateral lower extremity.
== END 2021-04-08 14:58 | disposition home or self-care (01) ==
LOC: HO.US 14:57
PROVIDERS: PCP Family Medicine; Visit Provider Family Medicine
DX: M79.605 Pain in left leg (principal); M79.604 Pain in right leg; M79.89 Other specified soft tissue disorders
CPT/HCPCS: 93970

== ENCOUNTER → 2021-05-12 14:04 | Outpatient (BNVA) | payer MEDICARE, MEDICAID, SELFPAY | PROVIDERS: PCP Family Medicine; Visit Provider Surgery | DX: D17.0 Benign lipomatous neoplasm of skin and subcutaneous tissue of head, face and neck (principal) | CPT/HCPCS: 99202 ==

== ENCOUNTER 2021-05-19 11:09 | Inpatient (IN) | payer MEDICARE, MEDICAID, SELFPAY ==
[2021-05-19] VITALS (8 sets, daily range): BP systolic 90–187; BP diastolic 46–93; PULSE 86–107; RESP 14–19; TEMP 36.8–37.4; O2SAT 95–100; BMI 30.7; BMI 31.7
--- NOTE | ~2021-05-19 | XR_ITS ---
EXAMINATION: XR CHEST CLINICAL INFORMATION: Mental status change COMPARISON: Previous chest x-ray most recent 08/28/2020 TECHNIQUE: Frontal view of the chest was obtained. FINDINGS: The cardiac and mediastinal contours are stable. The lungs are clear. There is no pleural effusion or pneumothorax. There are mild degenerative changes of the spine and curvature of the lower thoracic spine to the right. XR/XR chest 1V IMPRESSION: No evidence for acute disease in the chest.
--- NOTE | ~2021-05-19 | CT_ITS ---
EXAMINATION: CT ABDOMEN AND PELVIS WITHOUT CONTRAST CLINICAL INFORMATION: Acute renal failure COMPARISON: Previous CT of the abdomen and pelvis most recent February 2021 TECHNIQUE: Multidetector volumetric imaging was performed from the superior aspect of the liver through the pubic symphysis. Sagittal and coronal reformatted images were obtained on the technologist's workstation. This CT examination was performed using dose optimization techniques as appropriate, variously including the following: *Automated exposure control *Adjustment of mA and/or kV according to patient size (this includes techniques or standardized protocols for targeted exams where dose is matched to indication/reason for exam; i.e. extremities or head) *Use of iterative reconstruction technique DLP: 756 mGy-cm FINDINGS: LUNG BASES: There is subsegmental atelectasis at the lung bases. There is a 2 mm calcified right lower lobe nodule probably representing a calcified granuloma that is stable. LIVER, GALLBLADDER, AND BILIARY TREE: The liver is normal in size, shape, and attenuation. No focal hepatic lesion or biliary ductal dilatation is present. The gallbladder has been removed. PANCREAS: Unremarkable. SPLEEN: Unremarkable. ADRENAL GLANDS: There is a 1.2 x 2 cm right adrenal lesion that is stable. Hounsfield units measure negative for suggestive of an benign adenoma. The left adrenal gland is unremarkable. KIDNEYS AND URETERS: There are 2 small 2 mm nonobstructing right renal stones. There are 2 low-attenuation lesions in the right kidney suggestive of cysts, largest measuring 1.5 cm. No imaging follow-up is indicated. The kidneys are otherwise unremarkable. No hydronephrosis is seen. BLADDER: The prostate gland is enlarged and protrudes into the base of the bladder. The bladder is otherwise unremarkable. GASTROINTESTINAL TRACT: There is diverticulosis of the colon. The small and large bowel are otherwise unremarkable. The appendix is unremarkable. ABDOMINAL WALL: No significant hernia is appreciated. LYMPH NODES: There are no enlarged lymph nodes. VASCULAR: There is evidence of atherosclerotic disease. No aneurysm is seen. PELVIC VISCERA: The prostate gland is enlarged and protrudes into the base of bladder. Prostate gland measures 4 cm in AP and transverse dimension. OSSEOUS STRUCTURES: There are degenerative changes of the spine. CT/CT abdomen pelvis wo con IMPRESSION: Small nonobstructing right renal stones. Stable probable right renal cysts. Diffuse bladder wall thickening. Enlarged prostate gland that protrudes into the base of the bladder. Diverticulosis of the colon. Stable right adrenal adenoma.
--- NOTE | ~2021-05-19 | CT_ITS ---
EXAMINATION: CT CERVICAL SPINE WITHOUT CONTRAST CLINICAL INFORMATION: Fall. COMPARISON: None TECHNIQUE: Axial images through the cervical spine without contrast. Sagittal and coronal reconstructions on the technologist workstation. This CT examination was performed using dose optimization techniques as appropriate, variously including the following: *Automated exposure control *Adjustment of mA and/or kV according to patient size (this includes techniques or standardized protocols for targeted exams where dose is matched to indication/reason for exam; i.e. extremities or head) *Use of iterative reconstruction technique DLP: 706 mGy-cm FINDINGS: Bone alignment is normal. No fracture or dislocation is seen. There is degenerative spondylosis from C4-C5 to C6-C7. There is degenerative disc disease at C5-C6 and C6-C7. There is facet arthritis at C4-C5 and C5-C6, left greater than right. There are degenerative changes of the C1 dens articulation. Prevertebral soft tissues are normal. The lung apices are clear. CT/CT cervical spine wo con IMPRESSION: Degenerative changes. No fracture or dislocation seen.
--- NOTE | ~2021-05-19 | CT_ITS ---
EXAMINATION: CT HEAD WITHOUT CONTRAST CLINICAL INFORMATION: Fall. Mental status change. COMPARISON: Previous head CT April 2017 and brain MRI TECHNIQUE: Contiguous axial imaging was performed from the skull base to vertex without intravenous administration of contrast. This CT examination was performed using dose optimization techniques as appropriate, variously including the following: *Automated exposure control *Adjustment of mA and/or kV according to patient size (this includes techniques or standardized protocols for targeted exams where dose is matched to indication/reason for exam; i.e. extremities or head) *Use of iterative reconstruction technique DLP: 746 mGy-cm FINDINGS: There is no evidence of an extra-axial collection. There is no evidence of intra-axial or extra-axial hemorrhage. Ventricles and extra-axial CSF spaces are appropriate. There is nonspecific periventricular white matter disease. There are old bilateral basal ganglia lacunar infarcts. No mass, mass effect or acute infarct is seen. Review at bone windows is normal. No skull fracture is seen. There may be poor dentition. There are inflammatory changes seen in the bilateral maxillary sinuses. CT/CT head/brain wo con IMPRESSION: No acute findings. Old lateral basal ganglia lacunar infarcts and nonspecific periventricular white matter disease.
--- NOTE | 2021-05-19 11:34 | ECG_ITS ---
Test Reason : ALTERED MENTAL STATUS Blood Pressure : / mmHG Vent. Rate : 089 BPM Atrial Rate : 089 BPM P-R Int : 166 ms QRS Dur : 090 ms QT Int : 370 ms P-R-T Axes : 073 -33 -22 degrees QTc Int : 450 ms Normal sinus rhythm Left axis deviation Abnormal ECG When compared with ECG of 09-DEC-2020 11:27, Premature atrial complexes are no longer Present Vent. rate has increased BY 30 BPM Referred By: Lucie Vigil Electronically Signed By:SADIQ ALFARO MD
--- NOTE | 2021-05-19 11:52 | PC.NURSE ---
pt's manager cost (brenda narayan - [phone]). pt arrived in ed with only his underpants on, no other belongings noted.
[2021-05-19 11:53] LABS: Basophils Percent Auto 0.5 % (0-2); Eosinophils Absolute Auto 0.1 X10*3/uL (0.0-0.4); Eosinophils Percent Auto 1.4 % (0-4); Hematocrit 37.5 % (42-52); Hemoglobin 12.7 g/dl (14.0-18.0); Imm Gran Abs Auto 0.03 X10*3/uL (0.00-0.03); Imm Gran Pct Auto 0.5 % (0.0-0.4); Lymphocytes Percent Auto 16.1 % (20-40); MANUAL DIFF FLAG SCAN; Mean Corpuscular HGB Conc 33.9 g/dl (31.0-36.0); Mean Corpuscular Hemoglobin 30.3 pg (27.0-33.0); Mean Corpuscular Volume 89.5 fL (80-98); Monocytes Absolute Auto 0.9 X10*3/uL (0.1-1.2); Monocytes Percent Auto 14.1 % (2-11); Neutrophils Absolute Auto 4.4 X10*3/uL (2.0-8.3); Neutrophils Percent Auto 67.4 % (45-73); PLT CLUMP 1; Red Blood Count 4.19 X10*6/uL (4.60-5.80); Red Cell Distribution Width 13.7 % (11.0-16.0); SCAN SMEAR FLAG 1
[2021-05-19 11:57] LABS: INTERNATIONAL NORM RATIO 1.1 (0.9-1.1); Prothrombin Time 12.1 SEC (9.9-13.0)
[2021-05-19 12:00] LABS: Partial Thromboplastin Time 35.3 SEC (24.1-38.0)
[2021-05-19 12:09] LABS: COVID-19 Test Negative (Negative); IDNOW Serial# 08D9AD1C
--- NOTE | 2021-05-19 12:09 | ED_ITS ---
HPI - Altered Mental Status General Chief Complaint: Altered Mental Status Stated Complaint: ams Time Seen by Provider: 05/19/21 11:33 Source: patient, family ([employer]), EMS and registered physical therapist Mode of arrival: EMS Limitations: altered mental status History of Present Illness HPI narrative: 71-year-old male came in by ambulance for evaluation mental status change, patient lives home independently seen a take care of him 1 hour day daily, patient was found on the floor unknown time he was on the ground, patient is lethargic but easily arousable able to carry on conversation, patient declined hitting his head or having pain anywhere. Patient at this point declined any symptoms, no chest pain, no shortness of breath, no abdominal pain, no headache, no nausea, no vomiting. Related Data Home Medications Medication Instructions Recorded Confirmed metformin 850 mg tablet 850 mg PO BID 09/12/20 05/12/21 nitroglycerin 0.4 mg sublingual 0.4 mg SUBLINGUAL ONCE PRN 09/12/20 05/12/21 tablet albuterol sulfate 90 mcg/actuation 2 inh INHALATION Q6H PRN g 10/24/20 05/12/21 aerosol inhaler atorvastatin 40 mg tablet 40 mg PO DAILY tab 10/24/20 05/12/21 baclofen 10 mg tablet 10 mg PO BEDTIME PRN tab 10/24/20 05/12/21 budesonide-formoterol HFA 160 2 puff INHALATION BID g 10/24/20 05/12/21 mcg-4.5 mcg/actuation aerosol inhaler duloxetine 60 mg capsule,delayed 60 mg PO DAILY cap 10/24/20 05/12/21 release finasteride 5 mg tablet 5 mg PO DAILY tab 10/24/20 05/12/21 fluticasone propionate 50 2 spray INTRANASAL DAILY g 10/24/20 05/12/21 mcg/actuation nasal spray,suspension furosemide 40 mg tablet 40 mg PO DAILY tab 10/24/20 05/12/21 gabapentin 100 mg capsule 100 mg PO TID PRN cap 10/24/20 05/12/21 hydralazine 50 mg tablet 50 mg PO BID tab 10/24/20 05/12/21 isosorbide mononitrate 60 mg 60 mg PO DAILY tab 10/24/20 05/12/21 tablet,extended release 24 hr levothyroxine 75 mcg tablet 75 mcg PO DAILY tab 10/24/20 05/12/21 lisinopril 10 mg tablet 10 mg PO DAILY tab 10/24/20 05/12/21 meclizine 25 mg tablet 25 mg PO TID PRN tab 10/24/20 05/12/21 metoprolol succinate 100 mg 100 mg PO DAILY tab 10/24/20 05/12/21 tablet,extended release 24 hr montelukast 10 mg tablet 10 mg PO DAILY tab 10/24/20 05/12/21 quetiapine 100 mg tablet 100 mg PO BEDTIME tab 10/24/20 05/12/21 tamsulosin 0.4 mg capsule 0.4 mg PO BEDTIME cap 10/24/20 05/12/21 temazepam 30 mg capsule 30 mg PO BEDTIME cap 10/24/20 05/12/21 tiotropium bromide 18 mcg capsule 1 cap INHALATION DAILY 10/24/20 05/12/21 with inhalation device trazodone 150 mg tablet 150 mg PO BEDTIME tab 10/24/20 05/12/21 Previous Rx's Medication Instructions Recorded albuterol sulfate 2.5 mg INHALATION Q4-6H PRN 30 09/12/20 Days #75 ml finasteride 5 mg tablet 5 mg PO DAILY 90 Days #90 tab 01/28/21 Allergies Allergy/AdvReac Type Severity Reaction Status Date / Time Environmental Allergy Intermediate RUNNING Uncoded 10/30/20 09:05 NOSE, ITCHING SNEEZING Review of Systems 2 Review of Systems: All other systems are reviewed and are negative Constitutional: Reports as per HPI and Reports no additional constitutional complaints Eyes: Reports as per HPI and Reports no additional eye complaints Reports system reviewed and no additional complaints, except as documented Cardiovascular: Reports as per HPI and Reports no additional cardiovascular complaints Respiratory: Reports as per HPI and Reports no additional respiratory complaints Gastrointestinal: Reports as per HPI and Reports no additional gastrointestinal complaints Genitourinary: Reports no additional female genitourinary complaints Musculoskeletal: Reports no additional musculoskeletal complaints Skin/Breast: Reports system reviewed and no additional complaints, except as docu Psychiatric: Reports no additional psychiatric complaints Endocrine: Reports no additional endocrine complaints Hematologic/Lymphatic: Reports no additional hematologic/lymphatic complaints Allergic/Immunologic: Reports no additional allergic/immunologic complaints Reports system reviewed and no additional complaints, except as documented and Reports Abnormal speech present [facility] Past Medical History Medical History Allergic rhinitis Asthma BPH (benign prostatic hyperplasia) Chronic low back pain COPD (chronic obstructive pulmonary disease) Coronary artery disease COVID-19 vaccine administered Diabetes Hyperlipidemia Hypertension Lipoma of neck Obesity (BMI 30-39.9) LUCA (obstructive sleep apnea) Personal history of COVID-19 Surgical History H/O colonoscopy History of esophagogastroduodenoscopy (EGD) History of right cataract surgery Hx of circumcision Social History Social History Are you a primary urgent care to a significant other at home: No Do you presently have visiting nurse or other home services: Yes (Home Health Aid) Alcohol intake: never Patient Tobacco Use Status: Never used Tobacco Use of substances other than those prescribed or required for medical reasons: No Advance Directives: Yes Advance Directives on File: Yes Advance Directives Date on File: 05/14/20 Physical Exam Vital Signs: Vital Signs: Last Vital Signs Temp 98.6 F 05/19/21 12:49 Pulse 91 05/19/21 14:10 Resp 16 05/19/21 14:10 BP 102/57 L 05/19/21 15:28 Pulse Ox 100 05/19/21 14:10 Body Mass Index 30.7 Vital signs have been reviewed as appeared to be correct. Blood pressure normal. Heart rate normal. Respiration rate normal. Temperature normal. Oxygen saturation normal. Appearance: Lethargic but easily arousable. No acute distress. Head: Normal external exam. Normocephalic. Atraumatic. No Bueno signs noted. No raccoon eyes noted Eyes: PERRLA. EOMI. Conjunctiva and sclera normal. Eyelids normal. ENT: TM's Normal. Pharynx normal. Uvula midline. Moist mucous membranes. No trismus noted. No drooling noted. No muffled voice noted. Neck: Normal inspection. Neck supple. FROM. No adenopathy. Thyroid Normal. No meningeal signs. No neck mass noted. CVS: Normal heart rate and rhythm. Heart sound normal. No murmurs noted. Pulses normal throughout. Respiratory: No respiratory distress. Painless inspiration. Breath sounds normal. No wheezes/rales/rhonchi noted. Chest nontender. No accessory muscle usage noted or decreased air movement noted. Abdomen: Soft and nontender. Bowel sounds normal in all 4 quadrants. No distention noted. No organomegaly noted. No visible injury noted. Back: No CVA tenderness. Full range of motion noted. Skin: Skin warm and dry. Normal skin color. Normal skin turgor. No rashes/lesions/lacerations noted. Extremities: No lower extremity edema. Extremities exhibit normal range of motion. Extremities nontender. Neuro: Oriented X 3. Cranial nerve exam: II-XII are grossly intact No motor deficit. No sensory deficit. Reflexes normal. Course Course Course Narrative: Assessment and plan. 71-year-old male came in after found on the ground with acute mental status change, patient was found on the ground initially with a concern of intracranial bleed, CT of the head showed no intracranial bleed. Labs revealed acute renal injury, patient was given IV fluid hydration, patient improved after 2nd L of fluid,nathan catheter was inserted with 500 cc of urine output in the Nathan. Patient now is more awake and less lethargic. CT of the abdomen pelvis showed no urinary obstruction. MDM - Altered Mental Status Medical Records Attestation: I reviewed the patient's medical records. Lab Data Attestation: I reviewed the patient's lab results. Result diagrams: 05/19/21 11:38 05/19/21 11:38 Labs: Lab Results 05/19/21 05/19/21 05/19/21 Range/Units 11:38 11:38 11:38 WBC 6.5 (4.8-10.8) X10*3/uL RBC 4.19 L (4.60-5.80) X10*6/uL Hgb 12.7 L (14.0-18.0) g/dl Hct 37.5 L (42-52) % MCV 89.5 (80-98) fL MCH 30.3 (27.0-33.0) pg MCHC 33.9 (31.0-36.0) g/dl RDW 13.7 (11.0-16.0) % Plt Count 170 (160-400) X10*3/uL MPV Not Reportable Immature Gran % (Auto) 0.5 H (0.0-0.4) % Neut % (Auto) 67.4 (45-73) % Lymph % (Auto) 16.1 L (20-40) % Worth % (Auto) 14.1 H (2-11) % Eos % (Auto) 1.4 (0-4) % Baso % (Auto) 0.5 (0-2) % Lymph # (Auto) 1.0 L (1.2-4.9) X10*3/uL Worth # (Auto) 0.9 (0.1-1.2) X10*3/uL Eos # (Auto) 0.1 (0.0-0.4) X10*3/uL Baso # (Auto) 0.0 (0.0-0.2) X10*3/uL Abs Immat Gran (auto) 0.03 (0.00-0.03) X10*3/uL Absolute Neuts (auto) 4.4 (2.0-8.3) X10*3/uL Absolute Nucleated RBC 0.000 (0.0-0.012) X10*3/uL Nucleated RBC % (auto) 0.0 (0.0-0.2) /100WBC Smear Tech's Comments VERIFIED PT (9.9-13.0) SEC INR (0.9-1.1) APTT (24.1-38.0) SEC Sodium 134 L (135-145) mmol/L Potassium 4.0 (3.3-5.1) mmol/L Chloride 107 (96-108) mmol/L Carbon Dioxide 19 L (22-29) mmol/L Anion Gap 12 (12-20) BUN 32 H (9-16) mg/dL Creatinine 3.11 H (0.5-1.4) mg/dL Estim Creat Clear Calc 26.2 Estimated GFR 20 Random Glucose 143 H (60-115) mg/dL Calcium 9.5 (8.4-10.2) mg/dL Total Bilirubin 0.9 (0.0-1.0) mg/dL Direct Bilirubin 0.4 (0.0-0.5) mg/dL AST 15 (5-37) U/L ALT 15 (0-40) U/L Alkaline Phosphatase 63 (39-117) U/L Total Creatine Kinase 110 (38-174) U/L Troponin I High Sens 8.1 (<3.5-35.0) ng/L B-Natriuretic Peptide < 10 (<100) pg/mL Total Protein 6.3 L (6.5-8.0) g/dL Albumin 3.9 (3.5-5.0) g/dL Lipase 20 (8-78) U/L Urine Color Urine Appearance Urine pH (5.0-8.0) Ur Specific [place] (1.005-1.025) Urine Protein (NEG-TRACE) MG/DL Urine Glucose (UA) (NEG) MG/DL Urine Ketones (NEG) MG/DL Urine Blood (NEG) Urine Nitrite (NEG) Ur Leukocyte Esterase (NEG) COVID-19 ([facility]) (Negative) COVID-19 Clin Com 05/19/21 05/19/21 05/19/21 Range/Units 11:38 11:38 14:50 WBC (4.8-10.8) X10*3/uL RBC (4.60-5.80) X10*6/uL Hgb (14.0-18.0) g/dl Hct (42-52) % MCV (80-98) fL MCH (27.0-33.0) pg MCHC (31.0-36.0) g/dl RDW (11.0-16.0) % Plt Count (160-400) X10*3/uL MPV Immature Gran % (Auto) (0.0-0.4) % Neut % (Auto) (45-73) % Lymph % (Auto) (20-40) % Worth % (Auto) (2-11) % Eos % (Auto) (0-4) % Baso % (Auto) (0-2) % Lymph # (Auto) (1.2-4.9) X10*3/uL Worth # (Auto) (0.1-1.2) X10*3/uL Eos # (Auto) (0.0-0.4) X10*3/uL Baso # (Auto) (0.0-0.2) X10*3/uL Abs Immat Gran (auto) (0.00-0.03) X10*3/uL Absolute Neuts (auto) (2.0-8.3) X10*3/uL Absolute Nucleated RBC (0.0-0.012) X10*3/uL Nucleated RBC % (auto) (0.0-0.2) /100WBC Smear Tech's Comments PT 12.1 (9.9-13.0) SEC INR 1.1 (0.9-1.1) APTT 35.3 (24.1-38.0) SEC Sodium (135-145) mmol/L Potassium (3.3-5.1) mmol/L Chloride (96-108) mmol/L Carbon Dioxide (22-29) mmol/L Anion Gap (12-20) BUN (9-16) mg/dL Creatinine (0.5-1.4) mg/dL Estim Creat Clear Calc Estimated GFR Random Glucose (60-115) mg/dL Calcium (8.4-10.2) mg/dL Total Bilirubin (0.0-1.0) mg/dL Direct Bilirubin (0.0-0.5) mg/dL AST (5-37) U/L ALT (0-40) U/L Alkaline Phosphatase (39-117) U/L Total Creatine Kinase (38-174) U/L Troponin I High Sens (<3.5-35.0) ng/L B-Natriuretic Peptide (<100) pg/mL Total Protein (6.5-8.0) g/dL Albumin (3.5-5.0) g/dL Lipase (8-78) U/L Urine Color YELLOW Urine Appearance CLEAR Urine pH 5.5 (5.0-8.0) Ur Specific [place] <= 1.005 (1.005-1.025) Urine Protein NEG (NEG-TRACE) MG/DL Urine Glucose (UA) NEG (NEG) MG/DL Urine Ketones NEG (NEG) MG/DL Urine Blood NEG (NEG) Urine Nitrite NEG (NEG) Ur Leukocyte Esterase NEG (NEG) COVID-19 ([facility]) Negative (Negative) COVID-19 Clin Com See Note Imaging Data Head CT: Radiologist's impression: No acute intracranial pathology. Cervical spine CT: Radiologist's impression: No acute fracture or subluxation. CT scan - abdomen: Radiologist's impression: Small nonobstructing right renal stones. Stable probable right renal cysts. Diffuse bladder wall thickening. Enlarged prostate gland that protrudes into the base of the bladder. Diverticulosis of the colon. Stable right adrenal adenoma. ECG Data ECG #1: Attestation: I personally reviewed and interpreted this ECG as follows: Interpretation: Normal sinus rhythm at 89 beats per minutes, left axis d eviation, normal intervals, no ST-T changes. Discharge Plan Discharge Clinical Impression: Acute renal failure Patient Disposition: Admitted As Inpatient Prescriptions: No Action finasteride 5 mg tablet 5 mg PO DAILY 90 Days Qty: 90 RF: 0 metformin 850 mg tablet 850 mg PO BID RF: 0 nitroglycerin 0.4 mg tablet, sublingual 0.4 mg sublingual ONCE PRN (Reason: Chest Pain) RF: 0 albuterol sulfate 2.5 mg /3 mL (0.083 %) solution for nebulization 2.5 mg inhalation Q4-6H PRN (Reason: shortness of breath or wheezing) 30 Days Qty: 75 RF: 1 albuterol sulfate 90 mcg/actuation HFA aerosol inhaler 2 inh inhalation Q6H PRN (Reason: Shortness Of Breath) RF: 0 atorvastatin 40 mg tablet 40 mg PO DAILY RF: 0 baclofen 10 mg tablet 10 mg PO BEDTIME PRN (Reason: Pain) RF: 0 budesonide-formoterol 160-4.5 mcg/actuation HFA aerosol inhaler 2 puff inhalation BID RF: 0 duloxetine 60 mg capsule,delayed release(DR/EC) 60 mg PO DAILY RF: 0 finasteride 5 mg tablet 5 mg PO DAILY RF: 0 fluticasone propionate 50 mcg/actuation spray,suspension 2 spray intranasal DAILY RF: 0 furosemide 40 mg tablet 40 mg PO DAILY RF: 0 gabapentin 100 mg capsule 100 mg PO TID PRN (Reason: Pain) RF: 0 hydralazine 50 mg tablet 50 mg PO BID RF: 0 isosorbide mononitrate 60 mg tablet extended release 24 hr 60 mg PO DAILY RF: 0 levothyroxine 75 mcg tablet 75 mcg PO DAILY RF: 0 lisinopril 10 mg tablet 10 mg PO DAILY RF: 0 meclizine 25 mg tablet 25 mg PO TID PRN (Reason: Vertigo) RF: 0 metoprolol succinate 100 mg tablet extended release 24 hr 100 mg PO DAILY RF: 0 montelukast 10 mg tablet 10 mg PO DAILY RF: 0 quetiapine 100 mg tablet 100 mg PO BEDTIME RF: 0 tamsulosin 0.4 mg capsule 0.4 mg PO BEDTIME RF: 0 temazepam 30 mg capsule 30 mg PO BEDTIME RF: 0 tiotropium bromide 18 mcg capsule, w/inhalation device 1 cap inhalation DAILY RF: 0 trazodone 150 mg tablet 150 mg PO BEDTIME RF: 0
[2021-05-19 12:10] LABS: Platelet Count 170 X10*3/uL (160-400); SLIDE REVIEW VERIFIED; White Blood Count 6.5 X10*3/uL (4.8-10.8)
[2021-05-19 12:11] LABS: B Type Natriuretic Peptide < 10 pg/mL (<100); Troponin-I High Sensitivity 8.1 ng/L (<3.5-35.0)
[2021-05-19 12:13] LABS: Alanine Aminotransferase 15 U/L (0-40); Albumin Level 3.9 g/dL (3.5-5.0); Alkaline Phosphatase 63 U/L (39-117); Anion Gap 12 (12-20); Aspartate Amino Transferase 15 U/L (5-37); Bilirubin Direct 0.4 mg/dL (0.0-0.5); Bilirubin Total 0.9 mg/dL (0.0-1.0); Blood Urea Nitrogen 32 mg/dL (9-16); Calcium 9.5 mg/dL (8.4-10.2); Carbon Dioxide 19 mmol/L (22-29); Chloride 107 mmol/L (96-108); Creatinine Clr Calc Pharmacy 26.2; Estimated Glomerular Filt Rate 20; Glucose Random 143 mg/dL (60-115); Lipase 20 U/L (8-78); Sodium 134 mmol/L (135-145); Total Protein 6.3 g/dL (6.5-8.0)
[2021-05-19] MEDS: 0.9 % Sodium Chloride 1,000 ML 999 ML IVCONT ×2 (12:58→15:26)
--- NOTE | 2021-05-19 13:20 | PC.NURSE ---
ptmann [email or web address] (([phone]) would like to be updated with pt's results/status.
[2021-05-19 15:01] LABS: Appearance Urine CLEAR; Color Urine YELLOW; Glucose Urine UA NEG (NEG); Leukocyte Esterase Urine NEG (NEG); Nitrite Urine NEG (NEG); PH 5.5 (5.0-8.0); Specific Gravity - Urine <= 1.005 (1.005-1.025); Urine Blood NEG (NEG); Urine Ketones NEG (NEG); Urine Protein NEG (NEG-TRACE)
--- NOTE | 2021-05-19 16:17 | PM.IMHP ---
History of Present Illness Date of Service: 05/19/21 <Yuki Garcia NP - Last Filed: 05/19/21 17:20> Attending physician on admission: Chino Weaver <Yuki Garcia NP - Last Filed: 05/19/21 17:20> Chief Complaint: confusion <Yuki Garcia NP - Last Filed: 05/19/21 17:20> 71 year old man found on the ground at his home. he had been on the ground an unknown amount of time. He lives alone. Looking back at old records the patient is alert and oriented but during the interview he was completely confused, even lethargic at times. therefore, accurate history was unable to be obtained. His creatinine was elevated at 3.1, ammonia 24, no hypoxia or hypercarbia noted on VBG. His urine toxicology did show fentanyl and benzodiazepines. Abdominal CT did not show any retained stones or blockages, head CT negative for acute abnormality, chest x-ray negative for consolidation or effusion. He was given 3 liters of IV fluids in the ED. He will be admitted for further management of acute renal failure and encephalopathy. <Yuki Garcia NP - Last Filed: 05/19/21 17:20> Review of Systems Review of Systems: Yes Unobtainable due to mental status <Yuki Garcia NP - Last Filed: 05/19/21 17:20> [facility] Medical History: Medical History (Updated 05/29/21 @ 00:03 by Mainor Chavez) Allergic rhinitis Asthma BPH (benign prostatic hyperplasia) Chronic low back pain COPD (chronic obstructive pulmonary disease) Coronary artery disease COVID-19 vaccine administered Diabetes Hyperlipidemia Hypertension Lipoma of neck Obesity (BMI 30-39.9) LUCA (obstructive sleep apnea) Personal history of COVID-19 <Yuki Garcia NP - Last Filed: 05/19/21 17:20> Pertinent family history: unknown d/t mental status <Yuki Garcia NP - Last Filed: 05/19/21 17:20> Surgical History: Surgical History H/O colonoscopy History of esophagogastroduodenoscopy (EGD) History of right cataract surgery Hx of circumcision <Yuki Garcia NP - Last Filed: 05/19/21 17:20> Social History: Social History Household Members: None Housing: House Are you a primary adult live in caregiver to a significant other at home: No Do you presently have visiting nurse or other home services: No Alcohol intake: never Patient Tobacco Use Status: Never used Tobacco Advance Directives Date on File: 05/14/20 service: No <Yuki Garcia NP - Last Filed: 05/19/21 17:20> Meds Allergies/Adverse reactions: Allergies Allergy/AdvReac Type Severity Reaction Status Date / Time Environmental Allergy Intermediate RUNNING Uncoded 10/30/20 09:05 NOSE, ITCHING SNEEZING <Yuki Garcia NP - Last Filed: 05/19/21 17:20> Active Medications: Current Medications Sodium Chloride (Ns) 1,000 mls @ 999 mls/hr IVCONT .Q1H1M ORAL Stop: 05/19/21 16:30 Last Admin: 05/19/21 15:26 Dose: 999 mls/hr Documented by: Sodium Chloride (Ns) 1,000 mls @ 999 mls/hr IVCONT .Q1H1M ORAL Stop: 05/19/21 16:45 Sodium Chloride (Ns) 1,000 mls @ 100 mls/hr IVCONT .Q10H ORAL <Yuki Garcia NP - Last Filed: 05/19/21 17:20> Home medications: Home Medications Medication Instructions Recorded Confirmed Last Taken Type nitroglycerin 0.4 mg sublingual 0.4 mg SUBLINGUAL ONCE PRN 09/12/20 05/19/21 Unknown History tablet albuterol sulfate 90 mcg/actuation 2 inh INHALATION Q6H PRN g 10/24/20 05/19/21 Unknown History aerosol inhaler atorvastatin 40 mg tablet 40 mg PO DAILY tab 10/24/20 05/19/21 Unknown History baclofen 10 mg tablet 10 mg PO BEDTIME PRN tab 10/24/20 05/19/21 Unknown History budesonide-formoterol HFA 160 2 puff INHALATION BID g 10/24/20 05/19/21 Unknown History mcg-4.5 mcg/actuation aerosol inhaler duloxetine 60 mg capsule,delayed 60 mg PO DAILY cap 10/24/20 05/19/21 Unknown History release fluticasone propionate 50 2 spray INTRANASAL DAILY g 10/24/20 05/19/21 Unknown History mcg/actuation nasal spray,suspension furosemide 40 mg tablet 40 mg PO DAILY tab 10/24/20 05/19/21 Unknown History gabapentin 100 mg capsule 100 mg PO DAILY PRN cap 10/24/20 05/19/21 Unknown History isosorbide mononitrate 60 mg 60 mg PO DAILY tab 10/24/20 05/19/21 Unknown History tablet,extended release 24 hr levothyroxine 75 mcg tablet 75 mcg PO DAILY tab 10/24/20 05/19/21 Unknown History meclizine 25 mg tablet 25 mg PO TID PRN tab 10/24/20 05/19/21 Unknown History metoprolol succinate 100 mg 100 mg PO DAILY tab 10/24/20 05/19/21 Unknown History tablet,extended release 24 hr montelukast 10 mg tablet 10 mg PO DAILY tab 10/24/20 05/19/21 Unknown History quetiapine 100 mg tablet 100 mg PO BEDTIME tab 10/24/20 05/19/21 Unknown History tamsulosin 0.4 mg capsule 0.4 mg PO BEDTIME cap 10/24/20 05/19/21 Unknown History temazepam 30 mg capsule 30 mg PO BEDTIME cap 10/24/20 05/19/21 Unknown History tiotropium bromide 18 mcg capsule 1 cap INHALATION DAILY 10/24/20 05/19/21 Unknown History with inhalation device trazodone 150 mg tablet 150 mg PO BEDTIME tab 10/24/20 05/19/21 Unknown History aspirin 81 mg tablet,delayed 1 tab PO DAILY 05/19/21 05/19/21 Unknown History release calcium carbonate 300 mg (750 mg) 1 tab PO Q4H PRN 05/19/21 05/19/21 Unknown History chewable tablet (Antacid Extra Strength (calcium carb)) hydralazine 100 mg tablet 100 mg PO TID 05/19/21 05/19/21 Unknown History ketotifen fumarate 0.025 % (0.035 1 drp OPHTHALMIC (EYE) BID 05/19/21 05/19/21 Unknown History %) eye drops metformin 500 mg tablet 1 tab PO DAILY 05/19/21 05/19/21 Unknown History omeprazole 40 mg capsule,delayed 1 cap PO DAILY 05/19/21 05/19/21 Unknown History release topiramate 25 mg tablet 1 tab PO DAILY 05/19/21 05/19/21 Unknown History <Yuki Garcia NP - Last Filed: 05/19/21 17:20> Physical Exam Vital Signs and Narrative: Vital Signs: Last Vital Signs Temp 98.6 F 05/19/21 12:49 Pulse 91 05/19/21 14:10 Resp 16 05/19/21 14:10 BP 102/57 L 05/19/21 15:28 Pulse Ox 100 05/19/21 14:10 Body Mass Index 30.7 <Yuki Garcia NP - Last Filed: 05/19/21 17:20> Appearing in no acute distress head is normocephalic atraumatic eyes pupils are PERRLA sclera is anicteric mouth throat mucous membranes are intact and moist neck is supple no lymphadenopathy, no JVD noted lung sounds are clear to auscultation heart regular rate rhythm, clear S1, S2 positive bowel sounds, abdomen is soft, nontender neuro patient is somewhat lethargic and confused <Yuki Garcia NP - Last Filed: 05/19/21 17:20> Results Labs CBC and Chem 7: : 05/21/21 06:55 05/21/21 06:55 <Yuki Garcia NP - Last Filed: 05/19/21 17:20> Labs: Laboratory Results - last 24 hr 05/19/21 05/19/21 05/19/21 11:38 11:38 11:38 MCV 89.5 MCH 30.3 MCHC 33.9 RDW 13.7 Plt Count 170 MPV Not Reportable Immature Gran % (Auto) 0.5 H Neut % (Auto) 67.4 Lymph % (Auto) 16.1 L [place] % (Auto) 14.1 H Eos % (Auto) 1.4 Baso % (Auto) 0.5 Lymph # (Auto) 1.0 L [place] # (Auto) 0.9 Eos # (Auto) 0.1 Baso # (Auto) 0.0 Abs Immat Gran (auto) 0.03 Absolute Neuts (auto) 4.4 Absolute Nucleated RBC 0.000 Nucleated RBC % (auto) 0.0 Smear Tech's Comments VERIFIED PT INR APTT Anion Gap 12 Estim Creat Clear Calc 26.2 Estimated GFR 20 Random Glucose 143 H Calcium 9.5 Total Bilirubin 0.9 Direct Bilirubin 0.4 AST 15 ALT 15 Alkaline Phosphatase 63 Total Creatine Kinase 110 Troponin I High Sens 8.1 B-Natriuretic Peptide < 10 Total Protein 6.3 L Albumin 3.9 Lipase 20 Urine Color Urine Appearance Urine pH Ur Specific [place] Urine Protein Urine Glucose (UA) Urine Ketones Urine Blood Urine Nitrite Ur Leukocyte Esterase COVID-19 ([facility]) COVID-19 Clin Com 05/19/21 05/19/21 05/19/21 11:38 11:38 14:50 MCV MCH MCHC RDW Plt Count MPV Immature Gran % (Auto) Neut % (Auto) Lymph % (Auto) [place] % (Auto) Eos % (Auto) Baso % (Auto) Lymph # (Auto) [place] # (Auto) Eos # (Auto) Baso # (Auto) Abs Immat Gran (auto) Absolute Neuts (auto) Absolute Nucleated RBC Nucleated RBC % (auto) Smear Tech's Comments PT 12.1 INR 1.1 APTT 35.3 Anion Gap Estim Creat Clear Calc Estimated GFR Random Glucose Calcium Total Bilirubin Direct Bilirubin AST ALT Alkaline Phosphatase Total Creatine Kinase Troponin I High Sens B-Natriuretic Peptide Total Protein Albumin Lipase Urine Color YELLOW Urine Appearance CLEAR Urine pH 5.5 Ur Specific [place] <= 1.005 Urine Protein NEG Urine Glucose (UA) NEG Urine Ketones NEG Urine Blood NEG Urine Nitrite NEG Ur Leukocyte Esterase NEG COVID-19 ([place]) Negative COVID-19 Clin Com See Note <Yuki Garcia NP - Last Filed: 05/19/21 17:20> Imaging Radiologist's Impressions: Impressions Cervical Spine CT 05/19/21 11:34 IMPRESSION: Degenerative changes. No fracture or dislocation seen. Chest X-Ray 05/19/21 11:34 IMPRESSION: No evidence for acute disease in the chest. Head CT 05/19/21 11:34 IMPRESSION: No acute findings. Old lateral basal ganglia lacunar infarcts and nonspecific periventricular white matter disease. Abdomen/Pelvis CT 05/19/21 12:51 IMPRESSION: Small nonobstructing right renal stones. Stable probable right renal cysts. Diffuse bladder wall thickening. Enlarged prostate gland that protrudes into the base of the bladder. Diverticulosis of the colon. Stable right adrenal adenoma. <Yuki Garcia NP - Last Filed: 05/19/21 17:20> Assessment and Plan (1) Acute renal failure: Qualifiers: Acute renal failure type: unspecified Qualified Code(s): N17.9 - Acute kidney failure, unspecified <Yuki Garcia NP - Last Filed: 05/19/21 17:20> Status: Resolved <Yuki Garcia NP - Last Filed: 05/19/21 17:20> (2) Acute encephalopathy: Status: Resolved <Yuki Garcia NP - Last Filed: 05/19/21 17:20> (3) Metabolic acidosis: Status: Resolved <Yuki Garcia NP - Last Filed: 05/19/21 17:20> 71 year old man admitted with acute renal failure and encephalopathy. Acute renal failure. Possibly medication related put out 500ml from [facility] cath abd ct no retained stone normal CK will continue IV fluids and recheck BMP this evening Hold Lisinopril, metformin and lasix Acute encephalopathy likely secondary to renal failure vs drugs/medication, ? overdose Utox showing positive for fentanyl and benzodiazepines VBG 7.17 CK 110 ammonia 24 blood cx pending Follow neuro status closely Metabolic acidosis likely secondary to renal failure Hypertension Hold lisinopril and lasix d/t renal failure Diabetes Sliding scale ada diet LUCA CPAP if patient can bring from home Obesity BMI 30.7 weight management is important as obesity contributes to worsening of other comorbidities DVT prophylaxis with heparin Attending Dr. Weaver Full code <Yuki Garcia NP - Last Filed: 05/19/21 17:20> 71 year old man admitted with acute renal failure and encephalopathy. Acute renal failure. Possibly medication related put out 500ml from [facility] cath abd ct no retained stone normal CK will continue IV fluids and recheck BMP this evening Hold Lisinopril, metformin and lasix Acute encephalopathy likely secondary to renal failure vs drugs/medication, ? overdose Utox showing positive for fentanyl and benzodiazepines VBG 7.17 CK 110 ammonia 24 blood cx pending Follow neuro status closely Metabolic acidosis likely secondary to renal failure Hypertension Hold lisinopril and lasix d/t renal failure Diabetes Sliding scale ada diet LUCA CPAP if patient can bring from home Obesity BMI 30.7 weight management is important as obesity contributes to worsening of other comorbidities DVT prophylaxis with heparin Attending Dr. Weaver Full code I have personally seen and examined patient. Agree with history and physical and plan of care as per Ms. Garcia [employer]BER <Chino Weaver, - Last Filed: 07/08/21 12:47> Quality Stroke Does the patient have a stroke diagnosis?: No <Yuki Garcia NP - Last Filed: 05/19/21 17:20> VTE Prior VTE?: No <Yuki Garcia NP - Last Filed: 05/19/21 17:20> VTE Risk Level:: Medical - moderate - high <Yuki Garcia NP - Last Filed: 05/19/21 17:20> VTE Device Contraindication: Treatment Not Indicated <Yuki Garcia NP - Last Filed: 05/19/21 17:20> VTE Drug Contraindication: N/A - Med Ordered <Yuki Garcia NP - Last Filed: 05/19/21 17:20>
[2021-05-19 16:20] LABS: VBG Base Excess -8.4 mmol/L; VBG HCO3 17 mmol/L (22-26); VBG pCO2 37 mmHg; VBG pH 7.27 (7.32-7.43); VBG pO2 47 mmHg
[2021-05-19 16:22] LABS: Venous Blood Gas Refer to POC result
[2021-05-19 16:26] LABS: Ammonia 24 umol/L (13-55)
[2021-05-19 16:33] LABS: Amphetamine Screen Urine Not Detected (Not Detect); Barbiturates, Urine Not Detected (Not Detect); Benzodiazepines Screen Urine POSITIVE (Not Detect); Cannabinoid Screen Urine Not Detected (Not Detect); Cocaine Screen Urine Not Detected (Not Detect); Fentanyl, urine POSITIVE (Not Detect); Opiate Screen Urine Not Detected (Not Detect); Phencyclidine Screen Urine Not Detected (Not Detect)
--- NOTE | 2021-05-19 18:26 | PC.NURSE ---
Daughter Belén updated via phone w/ pt permission. Daughter requested this RN contact home advisor Belén. Spoke w/ Belén, discussed pt home medications, Belén indicates pt is not prescribed any sort of narcotics or opioids
--- NOTE | 2021-05-19 18:40 | PHA.MEDREC ---
Pharmacy Consult ? Medication Reconciliation Pharmacy has completed the medication reconciliation. Contacted patients daughter Virginia who gave me the contact information for patient's [facility]. Contacted the [facility], , however the phone went to voicemail. Medication list completed by filled history. Patient has recently filled for his medications. Awilda Romo, BgD
[2021-05-19] MEDS: 0.9 % Sodium Chloride 1,000 ML 100 ML IVCONT (19:07)
[2021-05-19 19:34] LABS: Anion Gap 14 (12-20); Blood Urea Nitrogen 28 mg/dL (9-16); Calcium 9.2 mg/dL (8.4-10.2); Carbon Dioxide 19 mmol/L (22-29); Chloride 110 mmol/L (96-108); Creatinine Clr Calc Pharmacy 35.4; Estimated Glomerular Filt Rate 28; Glucose Random 103 mg/dL (60-115); Potassium 3.7 mmol/L (3.3-5.1); Sodium 139 mmol/L (135-145)
--- NOTE | 2021-05-19 20:23 | PC.NURSE ---
Pt to floor in stable condition w/ all belongings, attached to portable keypuncher, transported via [facility] EDT
[2021-05-19 20:49] LABS: Glucose, Whole Blood 91 mg/dL (60-115)
[2021-05-19] MEDS: Acetaminophen 325 MG TABLET 650 MG PO (22:31)
[2021-05-19] MEDS: QUEtiapine Fumarate 25 MG TABLET PO (22:31)
[2021-05-19] MEDS: hydrALAZINE HCl 50 MG TABLET 100 MG PO (23:42)
[2021-05-20] VITALS (12 sets, daily range): BP systolic 142–174; BP diastolic 65–84; PULSE 88–94; RESP 17–20; TEMP 36.6–37.4; O2SAT 96–98
[2021-05-20] MEDS: 0.9 % Sodium Chloride 1,000 ML 100 ML IVCONT (04:43)
[2021-05-20] MEDS: Levothyroxine Sodium 75 MCG TABLET PO (05:39)
[2021-05-20] MEDS: Heparin Sodium,Porcine 5,000 UNIT/ML VIAL 5000 UNIT SUBCUT ×2 (05:39→17:49)
[2021-05-20 06:51] LABS: Basophils Percent Auto 0.3 % (0-2); Eosinophils Absolute Auto 0.1 X10*3/uL (0.0-0.4); Eosinophils Percent Auto 2.1 % (0-4); Hematocrit 39.9 % (42-52); Hemoglobin 13.4 g/dl (14.0-18.0); Imm Gran Abs Auto 0.03 X10*3/uL (0.00-0.03); Imm Gran Pct Auto 0.5 % (0.0-0.4); Lymphocytes Absolute Auto 1.8 X10*3/uL (1.2-4.9); Lymphocytes Percent Auto 28.7 % (20-40); MANUAL DIFF FLAG SCAN; Mean Corpuscular HGB Conc 33.6 g/dl (31.0-36.0); Mean Corpuscular Hemoglobin 29.6 pg (27.0-33.0); Mean Corpuscular Volume 88.1 fL (80-98); Mean Platelet Volume 9.2 fL (9.4-12.4); Monocytes Absolute Auto 0.9 X10*3/uL (0.1-1.2); Monocytes Percent Auto 14.7 % (2-11); Neutrophils Absolute Auto 3.3 X10*3/uL (2.0-8.3); Neutrophils Percent Auto 53.7 % (45-73); Platelet Count 206 X10*3/uL (160-400); Red Blood Count 4.53 X10*6/uL (4.60-5.80); Red Cell Distribution Width 13.2 % (11.0-16.0); SCAN SMEAR FLAG 1; White Blood Count 6.1 X10*3/uL (4.8-10.8)
[2021-05-20 07:12] LABS: Anion Gap 16 (12-20); Blood Urea Nitrogen 19 mg/dL (9-16); Calcium 9.1 mg/dL (8.4-10.2); Carbon Dioxide 16 mmol/L (22-29); Chloride 112 mmol/L (96-108); Creatinine Clr Calc Pharmacy 58.7; Estimated Glomerular Filt Rate 50; Glucose Random 105 mg/dL (60-115); Potassium 3.7 mmol/L (3.3-5.1); Sodium 140 mmol/L (135-145)
[2021-05-20 07:21] LABS: SLIDE REVIEW VERIFIED
[2021-05-20 07:36] LABS: Glucose, Whole Blood 83 mg/dL (60-115)
[2021-05-20] MEDS: DULoxetine HCl 60 MG CAPSULE.DR PO (08:11)
[2021-05-20] MEDS: Montelukast Sodium 10 MG TABLET PO (08:11)
[2021-05-20] MEDS: Aspirin Enteric Coated 81 MG TABLET.DR PO (08:11)
[2021-05-20] MEDS: Omeprazole 40 MG CAPSULE.DR PO (08:11)
[2021-05-20] MEDS: Topiramate 25 MG TABLET PO (08:11)
[2021-05-20] MEDS: Isosorbide Mononitrate 60 MG TAB.ER.24H PO (08:11)
[2021-05-20] MEDS: Atorvastatin Calcium 40 MG TABLET PO (08:11)
[2021-05-20] MEDS: Metoprolol Succinate ER 100 MG TAB.ER.24H PO (08:12)
[2021-05-20] MEDS: Finasteride 5 MG TABLET PO (08:13)
[2021-05-20] MEDS: hydrALAZINE HCl 50 MG TABLET 100 MG PO ×3 (08:13→21:01)
[2021-05-20] MEDS: Ketotifen Fumarate 0.025% Oph 5 ML DRPBTL 1 DROP EYE-BOTH ×2 (08:16→21:04)
[2021-05-20] MEDS: Fluticasone Propionate Nasal 16 GM SPRAY 2 SPRAY NOSTRIL-B (08:16)
[2021-05-20] MEDS: Fluticasone/Vilanterol 200/25 BLST.W.DEV 1 PUFF INHALE (08:20)
--- NOTE | 2021-05-20 08:38 | P.CDIC_ITS ---
CDI Concurrent Query Documentation Clarification: PHYSICIAN'S DOCUMENTATION REQUEST Date of Query: 05/20/21 0838 Patient Name: Emory Cui Admit Date: 05/19/21 Dear Doctor, A review of the medical record indicates additional documentation may be needed. Please review below and update the documentation accordingly. Clinical Indicators: Risk Factors/Clinical Indicators/Treatments Acute encephalopathy - likely secondary to renal failure vs. drugs, medications ? overdose. Fentanyl and benzodiazepines. Lethargic at the time with complete confusion. Admit for renal failure and encephalopathy. IV fluids. Based on the above, please further specify, in the Progress Notes, the known or suspected type of the documented encephalopathy: * Metabolic * Toxic * Toxic metabolic * Due to a specified condition (such as UTI, hyponatremia, CVA, etc.) * Other (please specify) * Unable to determine Use of terms such as suspected, likely, concern for, or probable (associated with a specific diagnosis that is being evaluated, monitored, or treated as if it exists) are acceptable and can be coded in the inpatient setting, when documented at the time of discharge. Thank you, Candelaria Joseph [facility], CDIS Extension: [phone] Please use your independent medical judgment in providing your response. THIS QUERY IS PART OF THE PERMANENT MEDICAL RECORD Provider Response: Other Other Diagnosis: Suspected metabolic from KE
--- NOTE | 2021-05-20 09:48 | MHC.CM.PN ---
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
[2021-05-20 11:20] LABS: Glucose, Whole Blood 138 mg/dL (60-115)
--- NOTE | 2021-05-20 12:18 | P.CNNE_ITS ---
History of Present Illness Data of Consult Service Date: 05/20/21 Primary Care Provider: Brandie Evangelista DO HPI Reason for consult: Confusion and altered mental status This is a 71-year-old man with a history of for hyperlipidemia, Type 2 diabetes, obstructive sleep apnea, COPD and benign prostatic hypertrophy, who was found on the floor in his apartment where he lives alone and was confused and disoriented and brought to the hospital. Labs reveal that she was in acute renal failure. CAT scan of the head was unremarkable. There was some hematuria but no overt UTI. He was given 3 L of fluid and his mental status has improved remarkably. Patient is alert and cooperative at this time. He and still feels unwell. He has no appetite and has some soreness on the head on the left side where he may have hit his head when he fell. There is no previous history of syncope or seizure. No history of dementia. Review of Systems Review of Systems: All other systems are reviewed and are negative Constitutional: Reports as per HPI and Reports no additional constitutional complaints Eyes: Reports as per HPI and Reports no additional eye complaints Reports system reviewed and no additional complaints, except as documented Cardiovascular: Reports as per HPI and Reports no additional cardiovascular complaints Respiratory: Reports as per HPI and Reports no additional respiratory complaints Gastrointestinal: Reports as per HPI and Reports no additional gastrointestinal complaints Genitourinary: Reports no additional female genitourinary complaints Musculoskeletal: Reports no additional musculoskeletal complaints Skin/Breast: Reports system reviewed and no additional complaints, except as docu Psychiatric: Reports no additional psychiatric complaints Endocrine: Reports no additional endocrine complaints Hematologic/Lymphatic: Reports no additional hematologic/lymphatic complaints Allergic/Immunologic: Reports no additional allergic/immunologic complaints Reports system reviewed and no additional complaints, except as documented and Reports Abnormal speech present [facility] Past Medical History Medical History (Updated 05/19/21 @ 17:18 by Yuki Garcia NP) Allergic rhinitis Asthma BPH (benign prostatic hyperplasia) Chronic low back pain COPD (chronic obstructive pulmonary disease) Coronary artery disease COVID-19 vaccine administered Diabetes Hyperlipidemia Hypertension Lipoma of neck Obesity (BMI 30-39.9) LUCA (obstructive sleep apnea) Personal history of COVID-19 Family History Pertinent family history: unknown d/t mental status Surgical History Surgical History H/O colonoscopy History of esophagogastroduodenoscopy (EGD) History of right cataract surgery Hx of circumcision Social History Social History Household Members: None Housing: House Are you a primary rn palliative care to a significant other at home: No Do you presently have visiting nurse or other home services: No Alcohol intake: never Patient Tobacco Use Status: Never used Tobacco Use of substances other than those prescribed or required for medical reasons: No Currently Displaying Signs/Symptoms of Drug Intoxication Withdrawal: No Other Past Substance Use Problem:: pt urine positive for fentanyl Have you been hit, kicked, punched, or otherwise hurt by someone within the past year? If so, by whom?: No Do you feel safe in your current relationship?: No Current Relationship Is there a partner from a previous relationship who is making you feel unsafe now?: No Are you made to feel afraid or neglected: No Advance Directives: Yes Advance Directives on File: Yes Advance Directives Date on File: 05/14/20 Do you have thoughts of harming others: None Do you have a plan to hurt others: No Plan Recently lost weight without trying: No service: No Meds Allergies Allergy/AdvReac Type Severity Reaction Status Date / Time Environmental Allergy Intermediate RUNNING Uncoded 10/30/20 09:05 NOSE, ITCHING SNEEZING Active Medications: Current Medications Acetaminophen (Acetaminophen 325 Mg Tablet) 650 mg PO Q6H PRN PRN Reason: Pain, Mild (Pain Scale 1-3) Last Admin: 05/19/21 22:31 Dose: 650 mg Documented by: Albuterol Sulfate (Albuterol Sulfate (0.083%) 2.5 Mg/3 Ml Vial.Neb) 2.5 mg INHALE Q4H PRN PRN Reason: shortness of breath or wheezing Albuterol Sulfate (Albuterol Sulfate 90 Mcg 8 Gm Inhaler) 2 puff INHALE Q6H PRN PRN Reason: Shortness Of Breath Aspirin (Aspirin Enteric Coated 81 Mg Tablet.) 81 mg PO DAILY [facility] Last Admin: 05/20/21 08:11 Dose: 81 mg Documented by: Atorvastatin Calcium (Atorvastatin Calcium 40 Mg Tablet) 40 mg PO DAILY [facility] Last Admin: 05/20/21 08:11 Dose: 40 mg Documented by: Baclofen (Baclofen 10 Mg Tablet) 10 mg PO BEDTIME PRN PRN Reason: Pain Calcium Carbonate (Calcium Carbonate 750 Mg Tab.Chew) 300 mg PO Q4H PRN PRN Reason: Heartburn Dextrose (Dextrose 50 % 25 Gm/50 Ml Vial) 25 gm IVPUSH Q15M PRN; Protocol PRN Reason: per Hypoglycemia Standing Ord. Duloxetine HCl (Duloxetine Hcl 60 Mg Capsule.Dr) 60 mg PO DAILY [facility] Last Admin: 05/20/21 08:11 Dose: 60 mg Documented by: Finasteride (Finasteride 5 Mg Tablet) 5 mg PO DAILY [facility] Last Admin: 05/20/21 08:13 Dose: 5 mg Documented by: Fluticasone Propionate (Fluticasone Propionate Nasal 16 Gm [place]) 2 spray NOSTRIL-B DAILY [facility] Last Admin: 05/20/21 08:16 Dose: 2 spray Documented by: Fluticasone/Vilanterol (Fluticasone/Vilanterol 200/25 Blst.W.Dev) 1 puff INHALE RDAILY [facility] Last Admin: 05/20/21 08:20 Dose: 1 puff Documented by: Gabapentin (Gabapentin 100 Mg Capsule) 100 mg PO DAILY PRN PRN Reason: Pain Glucose (Glucose Gel 15 Gm Gel..Gram.) 15 gm PO Q15M PRN; Protocol PRN Reason: per Hypoglycemia Standing Ord. Heparin Sodium (Porcine) (Heparin Sodium,Porcine 5,000 Unit/Ml Vial) 5,000 unit SUBCUT Q12H [facility] Last Admin: 05/20/21 05:39 Dose: 5,000 unit Documented by: Hydralazine HCl (Hydralazine Hcl 50 Mg Tablet) 100 mg PO TID [facility]; Protocol Last Admin: 05/20/21 08:13 Dose: 100 mg Documented by: Insulin Human Lispro (Insulin Lispro 100 Unit/Ml 3 Ml Vial) 0 unit SUBCUT QIDACHS [facility]; Protocol Last Admin: 05/20/21 11:30 Dose: Not Given Documented by: Isosorbide Mononitrate (Isosorbide Mononitrate 60 Mg Tab.Er.24h) 60 mg PO DAILY [facility]; Protocol Last Admin: 05/20/21 08:11 Dose: 60 mg Documented by: Ketotifen Fumarate (Ketotifen Fumarate 0.025% Oph 5 Ml Drpbtl) 1 drop EYE-BOTH BID [facility] Last Admin: 05/20/21 08:16 Dose: 1 drop Documented by: Levothyroxine Sodium (Levothyroxine Sodium 75 Mcg Tablet) 75 mcg PO DAILY@0600 [facility] Last Admin: 05/20/21 05:39 Dose: 75 mcg Documented by: Meclizine HCl (Meclizine Hcl 25 Mg Tablet) 25 mg PO TID PRN PRN Reason: Vertigo Metoprolol Succinate (Metoprolol Succinate Er 100 Mg Tab.Er.24h) 100 mg PO DAILY [facility]; Protocol Last Admin: 05/20/21 08:12 Dose: 100 mg Documented by: Montelukast Sodium (Montelukast Sodium 10 Mg Tablet) 10 mg PO DAILY [facility] Last Admin: 05/20/21 08:11 Dose: 10 mg Documented by: Nitroglycerin (Nitroglycerin 0.4 Mg Tab.Subl) 0.4 mg SUBLINGUAL Q5MX3 PRN PRN Reason: Chest Pain Omeprazole (Omeprazole 40 Mg Capsule.Dr) 40 mg PO DAILY [facility] Last Admin: 05/20/21 08:11 Dose: 40 mg Documented by: Ondansetron HCl (Ondansetron Hcl 4 Mg/2 Ml Vial) 4 mg IVPUSH Q8H PRN PRN Reason: Nausea and Vomiting Pharmacy Consult (Consult Rx Perform Med Rec) 1 each MISCELLANE ONCE PRN PRN Reason: Consult order Quetiapine Fumarate (Quetiapine Fumarate 100 Mg Tablet) 100 mg PO BEDTIME [facility] Sodium Chloride (0.9 % Sodium Chloride Flush 3 Ml Syringe) 3 ml IVFLUSH QSHIFT [facility] Last Admin: 05/20/21 08:16 Dose: Not Given Documented by: Tamsulosin HCl (Tamsulosin Hcl 0.4 Mg Capsule) 0.4 mg PO BEDTIME [facility] Tiotropium [place] (Tiotropium [place] 18 Mcg Cap.W.Dev) 1 puff INHALE DAILY [facility] Last Admin: 05/20/21 08:20 Dose: 1 puff Documented by: Topiramate (Topiramate 25 Mg Tablet) 25 mg PO DAILY [facility] Last Admin: 05/20/21 08:11 Dose: 25 mg Documented by: Home Medications Medication Instructions Recorded Confirmed Last Taken Type nitroglycerin 0.4 mg sublingual 0.4 mg SUBLINGUAL ONCE PRN 09/12/20 05/19/21 Unknown History tablet albuterol sulfate 90 mcg/actuation 2 inh INHALATION Q6H PRN g 04/01/21 10/25/21 Unknown History aerosol inhaler atorvastatin 40 mg tablet 40 mg PO DAILY tab 10/24/20 05/19/21 Unknown History baclofen 10 mg tablet 10 mg PO BEDTIME PRN tab 10/24/20 05/19/21 Unknown History budesonide-formoterol HFA 160 2 puff INHALATION BID g 10/24/20 05/19/21 Unknown History mcg-4.5 mcg/actuation aerosol inhaler duloxetine 60 mg capsule,delayed 60 mg PO DAILY cap 10/24/20 05/19/21 Unknown History release fluticasone propionate 50 2 spray INTRANASAL DAILY g 10/24/20 05/19/21 Unknown History mcg/actuation nasal spray,suspension furosemide 40 mg tablet 40 mg PO DAILY tab 10/24/20 05/19/21 Unknown History gabapentin 100 mg capsule 100 mg PO DAILY PRN cap 10/24/20 05/19/21 Unknown History isosorbide mononitrate 60 mg 60 mg PO DAILY tab 10/24/20 05/19/21 Unknown History tablet,extended release 24 hr levothyroxine 75 mcg tablet 75 mcg PO DAILY tab 10/24/20 05/19/21 Unknown History meclizine 25 mg tablet 25 mg PO TID PRN tab 10/24/20 05/19/21 Unknown History metoprolol succinate 100 mg 100 mg PO DAILY tab 10/24/20 05/19/21 Unknown History tablet,extended release 24 hr montelukast 10 mg tablet 10 mg PO DAILY tab 10/24/20 05/19/21 Unknown History quetiapine 100 mg tablet 100 mg PO BEDTIME tab 10/24/20 05/19/21 Unknown History tamsulosin 0.4 mg capsule 0.4 mg PO BEDTIME cap 10/24/20 05/19/21 Unknown Hist ory temazepam 30 mg capsule 30 mg PO BEDTIME cap 10/24/20 05/19/21 Unknown History tiotropium bromide 18 mcg capsule 1 cap INHALATION DAILY 10/24/20 05/19/21 Unknown History with inhalation device trazodone 150 mg tablet 150 mg PO BEDTIME tab 10/24/20 05/19/21 Unknown History aspirin 81 mg tablet,delayed 1 tab PO DAILY 05/19/21 05/19/21 Unknown History release calcium carbonate 300 mg (750 mg) 1 tab PO Q4H PRN 05/19/21 05/19/21 Unknown History chewable tablet (Antacid Extra Strength (calcium carb)) hydralazine 100 mg tablet 100 mg PO TID 05/19/21 05/19/21 Unknown History ketotifen fumarate 0.025 % (0.035 1 drp OPHTHALMIC (EYE) BID 05/19/21 05/19/21 Unknown History %) eye drops lisinopril 40 mg tablet 1 tab PO DAILY 05/19/21 05/19/21 Unknown History metformin 500 mg tablet 1 tab PO DAILY 05/19/21 05/19/21 Unknown History omeprazole 40 mg capsule,delayed 1 cap PO DAILY 05/19/21 05/19/21 Unknown History release topiramate 25 mg tablet 1 tab PO DAILY 05/19/21 05/19/21 Unknown History Physical Exam Vital Signs: Vital Signs: Last Vital Signs Temp 98.3 F 05/20/21 11:15 Pulse 89 05/20/21 11:15 Resp 20 05/20/21 11:15 BP 146/65 H 05/20/21 11:15 Pulse Ox 98 05/20/21 11:15 Body Mass Index 31.7 Neuro: Other: He is now alert and oriented x3 with normal speech and language functions. Cranial nerves II-12 are normal. Muscle tone and strength are normal in all 4 extremities. Deep tendon reflexes are hypo-active plantar response are flexor. Neck is supple. Results Labs CBC & Chem 7: 05/20/21 06:09 05/20/21 06:09 Labs: Short CBC 05/20/21 Range/Units 06:09 WBC 6.1 (4.8-10.8) X10*3/uL Hgb 13.4 L (14.0-18.0) g/dl Hct 39.9 L (42-52) % Plt Count 206 (160-400) X10*3/uL BMP 05/19/21 05/20/21 19:12 06:09 Sodium 139 140 Potassium 3.7 3.7 Chloride 110 H 112 H Carbon Dioxide 19 L 16 L BUN 28 H 19 H Creatinine 2.30 H 1.41 H Calcium 9.2 9.1 Urine 05/19/21 Range/Units 14:50 Urine Color YELLOW Urine Appearance CLEAR Urine pH 5.5 (5.0-8.0) Ur Specific [place] <= 1.005 (1.005-1.025) Urine Protein NEG (NEG-TRACE) MG/DL Urine Glucose (UA) NEG (NEG) MG/DL Assessment and Plan (1) Acute renal failure: Qualifiers: Acute renal failure type: unspecified Qualified Code(s): N17.9 - Acute kidney failure, unspecified Status: Acute (2) Diabetes: Status: Acute (3) Acute encephalopathy: Status: Acute His mental status has the improved remarkably and he seems to be close to baseline with hydration and treatment of acute renal failure. No evidence of any primary neurological process. Who has microvascular disease with some chronic asymptomatic basal ganglia lacunar infarcts. No further neurological workup is necessary (4) LUCA (obstructive sleep apnea): Status: Acute (5) Obesity (BMI 30-39.9): Status: Acute (6) Metabolic acidosis: Status: Acute 71 year old man admitted with acute renal failure and encephalopathy. Acute renal failure. Possibly medication related put out 500ml from [facility] cath abd ct no retained stone normal CK will continue IV fluids and recheck BMP this evening Hold Lisinopril, metformin and lasix Acute encephalopathy likely secondary to renal failure vs drugs/medication, ? overdose Utox showing positive for fentanyl and benzodiazepines VBG 7.27/37/47/17 CK 110 ammonia 24 blood cx pending Follow neuro status closely Metabolic acidosis likely secondary to renal failure Hypertension Hold lisinopril and lasix d/t renal failure Diabetes Sliding scale ada diet LUCA CPAP if patient can bring from home Obesity BMI 30.7 weight management is important as obesity contributes to worsening of other comorbidities DVT prophylaxis with heparin Attending Dr. Weaver Full code Procedures Date of Service Date of Service: 05/20/21
--- NOTE | 2021-05-20 12:21 | P.PNIM_ITS ---
Progress Note: A&P (1) Acute renal failure: Status: Acute (2) Acute metabolic encephalopathy: Status: Acute Assessment and Plan: 71 year old man admitted with acute renal failure and encephalopathy.? Acute renal failure. Possibly medication related Tredning down abd ct no retained stone normal CK will continue IV fluids and recheck BMP this evening Hold Lisinopril, metformin and lasix Acute metabolic encephalopathy likely secondary to renal failure vs drugs/medication, ? overdose. Utox showing positive for fentanyl and benzodiazepines, Likely false positive fentanyl from cross reactivity from other medications, discussed with pharmacy, could be from trazodone VBG 7./ CK 110 ammonia 24 blood cx pending Neurology consult Metabolic acidosis likely secondary to renal failure Hypertension Hold lisinopril and lasix d/t renal failure Diabetes Sliding scale ada diet LUCA CPAP if patient can bring from home Obesity? BMI 30.7 weight management is important as obesity contributes? to worsening of other comorbidities DVT prophylaxis with heparin Attending Dr. Alonso Full code Subjective Subjective Date of Service: 05/20/21 Review of Systems Follow-up metabolic encephalopathy, KE No complaints of pain He feels more awake today Physical Exam Vital Signs: Vital Signs: Last Vital Signs Temp 98.3 F 05/20/21 11:15 Pulse 89 05/20/21 11:15 Resp 20 05/20/21 11:15 BP 146/65 H 05/20/21 11:15 Pulse Ox 98 05/20/21 11:15 Body Mass Index 31.7 Appearing in no acute distress lung sounds are clear to auscultation heart regular rate rhythm, clear S1, S2 positive bowel sounds, abdomen is soft, nontender neuro patient is much more alert today Objective Data Current Medications Acetaminophen (Acetaminophen 325 Mg Tablet) 650 mg PO Q6H PRN PRN Reason: Pain, Mild (Pain Scale 1-3) Last Admin: 05/19/21 22:31 Dose: 650 mg Documented by: Albuterol Sulfate (Albuterol Sulfate (0.083%) 2.5 Mg/3 Ml Vial.Neb) 2.5 mg INHALE Q4H PRN PRN Reason: shortness of breath or wheezing Albuterol Sulfate (Albuterol Sulfate 90 Mcg 8 Gm Inhaler) 2 puff INHALE Q6H PRN PRN Reason: Shortness Of Breath Aspirin (Aspirin Enteric Coated 81 Mg Tablet.) 81 mg PO DAILY [facility] Last Admin: 05/20/21 08:11 Dose: 81 mg Documented by: Atorvastatin Calcium (Atorvastatin Calcium 40 Mg Tablet) 40 mg PO DAILY [facility] Last Admin: 05/20/21 08:11 Dose: 40 mg Documented by: Baclofen (Baclofen 10 Mg Tablet) 10 mg PO BEDTIME PRN PRN Reason: Pain Calcium Carbonate (Calcium Carbonate 750 Mg Tab.Chew) 300 mg PO Q4H PRN PRN Reason: Heartburn Dextrose (Dextrose 50 % 25 Gm/50 Ml Vial) 25 gm IVPUSH Q15M PRN; Protocol PRN Reason: per Hypoglycemia Standing Ord. Duloxetine HCl (Duloxetine Hcl 60 Mg Capsule.) 60 mg PO DAILY [facility] Last Admin: 05/20/21 08:11 Dose: 60 mg Documented by: Finasteride (Finasteride 5 Mg Tablet) 5 mg PO DAILY [facility] Last Admin: 05/20/21 08:13 Dose: 5 mg Documented by: Fluticasone Propionate (Fluticasone Propionate Nasal 16 Gm [place]) 2 spray NOSTRIL-B DAILY [facility] Last Admin: 05/20/21 08:16 Dose: 2 spray Documented by: Fluticasone/Vilanterol (Fluticasone/Vilanterol 200/25 Blst.W.Dev) 1 puff INHALE RDAILY [facility] Last Admin: 05/20/21 08:20 Dose: 1 puff Documented by: Gabapentin (Gabapentin 100 Mg Capsule) 100 mg PO DAILY PRN PRN Reason: Pain Glucose (Glucose Gel 15 Gm Gel..Gram.) 15 gm PO Q15M PRN; Protocol PRN Reason: per Hypoglycemia Standing Ord. Heparin Sodium (Porcine) (Heparin Sodium,Porcine 5,000 Unit/Ml Vial) 5,000 unit SUBCUT Q12H [facility] Last Admin: 05/20/21 05:39 Dose: 5,000 unit Documented by: Hydralazine HCl (Hydralazine Hcl 50 Mg Tablet) 100 mg PO TID [facility]; Protocol Last Admin: 05/20/21 08:13 Dose: 100 mg Documented by: Insulin Human Lispro (Insulin Lispro 100 Unit/Ml 3 Ml Vial) 0 unit SUBCUT QIDACHS [facility]; Protocol Last Admin: 05/20/21 11:30 Dose: Not Given Documented by: Isosorbide Mononitrate (Isosorbide Mononitrate 60 Mg Tab.Er.24h) 60 mg PO DAILY [facility]; Protocol Last Admin: 05/20/21 08:11 Dose: 60 mg Documented by: Ketotifen Fumarate (Ketotifen Fumarate 0.025% Oph 5 Ml Drpbtl) 1 drop EYE-BOTH BID [facility] Last Admin: 05/20/21 08:16 Dose: 1 drop Documented by: Levothyroxine Sodium (Levothyroxine Sodium 75 Mcg Tablet) 75 mcg PO DAILY@0600 [facility] Last Admin: 05/20/21 05:39 Dose: 75 mcg Documented by: Meclizine HCl (Meclizine Hcl 25 Mg Tablet) 25 mg PO TID PRN PRN Reason: Vertigo Metoprolol Succinate (Metoprolol Succinate Er 100 Mg Tab.Er.24h) 100 mg PO DAILY [facility]; Protocol Last Admin: 05/20/21 08:12 Dose: 100 mg Documented by: Montelukast Sodium (Montelukast Sodium 10 Mg Tablet) 10 mg PO DAILY [facility] Last Admin: 05/20/21 08:11 Dose: 10 mg Documented by: Nitroglycerin (Nitroglycerin 0.4 Mg Tab.Subl) 0.4 mg SUBLINGUAL Q5MX3 PRN PRN Reason: Chest Pain Omeprazole (Omeprazole 40 Mg Capsule.Dr) 40 mg PO DAILY [facility] Last Admin: 05/20/21 08:11 Dose: 40 mg Documented by: Ondansetron HCl (Ondansetron Hcl 4 Mg/2 Ml Vial) 4 mg IVPUSH Q8H PRN PRN Reason: Nausea and Vomiting Pharmacy Consult (Consult Rx Perform Med Rec) 1 each MISCELLANE ONCE PRN PRN Reason: Consult order Quetiapine Fumarate (Quetiapine Fumarate 100 Mg Tablet) 100 mg PO BEDTIME [facility] Sodium Chloride (0.9 % Sodium Chloride Flush 3 Ml Syringe) 3 ml IVFLUSH QSHIFT [facility] Last Admin: 05/20/21 08:16 Dose: Not Given Documented by: Tamsulosin HCl (Tamsulosin Hcl 0.4 Mg Capsule) 0.4 mg PO BEDTIME [facility] Tiotropium [place] (Tiotropium [place] 18 Mcg Cap.W.Dev) 1 puff INHALE DAILY [facility] Last Admin: 05/20/21 08:20 Dose: 1 puff Documented by: Topiramate (Topiramate 25 Mg Tablet) 25 mg PO DAILY [facility] Last Admin: 05/20/21 08:11 Dose: 25 mg Documented by: Labs CBC & Chem 7: 05/20/21 06:09 05/20/21 06:09 Labs: Laboratory Results - last 24 hr 05/19/21 05/19/21 05/19/21 14:50 15:58 16:08 MCV MCH MCHC RDW Plt Count MPV Immature Gran % (Auto) Neut % (Auto) Lymph % (Auto) Owen % (Auto) Eos % (Auto) Baso % (Auto) Lymph # (Auto) Owen # (Auto) Eos # (Auto) Baso # (Auto) Abs Immat Gran (auto) Absolute Neuts (auto) Absolute Nucleated RBC Nucleated RBC % (auto) Smear Tech's Comments VBG pH VBG pCO2 VBG pO2 VBG HCO3 VBG O2 Saturation VBG Base Excess Anion Gap Estim Creat Clear Calc Estimated GFR POC Glucose Random Glucose Calcium Ammonia 24 Urine Color YELLOW Urine Appearance CLEAR Urine pH 5.5 Ur Specific [place] <= 1.005 Urine Protein NEG Urine Glucose (UA) NEG Urine Ketones NEG Urine Blood NEG Urine Nitrite NEG Ur Leukocyte Esterase NEG Urine Opiates Screen Not Detected Urine Fentanyl Screen POSITIVE H Ur Barbiturates Screen Not Detected Ur Phencyclidine Scrn Not Detected Ur Amphetamines Screen Not Detected U Benzodiazepines Scrn POSITIVE H Urine Cocaine Screen Not Detected U Marijuana (THC) Screen Not Detected 05/19/21 05/19/21 05/19/21 16:14 19:12 20:40 MCV MCH MCHC RDW Plt Count MPV Immature Gran % (Auto) Neut % (Auto) Lymph % (Auto) Owen % (Auto) Eos % (Auto) Baso % (Auto) Lymph # (Auto) Owen # (Auto) Eos # (Auto) Baso # (Auto) Abs Immat Gran (auto) Absolute Neuts (auto) Absolute Nucleated RBC Nucleated RBC % (auto) Smear Tech's Comments VBG pH 7.27 L VBG pCO2 37 VBG pO2 47 VBG HCO3 17 L VBG O2 Saturation 74.0 VBG Base Excess -8.4 Anion Gap 14 Estim Creat Clear Calc 35.4 Estimated GFR 28 POC Glucose 91 Random Glucose 103 Calcium 9.2 Ammonia Urine Color Urine Appearance Urine pH Ur Specific [place] Urine Protein Urine Glucose (UA) Urine Ketones Urine Blood Urine Nitrite Ur Leukocyte Esterase Urine Opiates Screen Urine Fentanyl Screen Ur Barbiturates Screen Ur Phencyclidine Scrn Ur Amphetamines Screen U Benzodiazepines Scrn Urine Cocaine Screen U Marijuana (THC) Screen 05/20/21 05/20/21 05/20/21 06:09 06:09 07:30 MCV 88.1 MCH 29.6 MCHC 33.6 RDW 13.2 Plt Count 206 MPV 9.2 L Immature Gran % (Auto) 0.5 H Neut % (Auto) 53.7 Lymph % (Auto) 28.7 Owen % (Auto) 14.7 H Eos % (Auto) 2.1 Baso % (Auto) 0.3 Lymph # (Auto) 1.8 Owen # (Auto) 0.9 Eos # (Auto) 0.1 Baso # (Auto) 0.0 Abs Immat Gran (auto) 0.03 Absolute Neuts (auto) 3.3 Absolute Nucleated RBC 0.000 Nucleated RBC % (auto) 0.0 Smear Tech's Comments VERIFIED VBG pH VBG pCO2 VBG pO2 VBG HCO3 VBG O2 Saturation VBG Base Excess Anion Gap 16 Estim Creat Clear Calc 58.7 Estimated GFR 50 POC Glucose 83 Random Glucose 105 Calcium 9.1 Ammonia Urine Color Urine Appearance Urine pH Ur Specific [place] Urine Protein Urine Glucose (UA) Urine Ketones Urine Blood Urine Nitrite Ur Leukocyte Esterase Urine Opiates Screen Urine Fentanyl Screen Ur Barbiturates Screen Ur Phencyclidine Scrn Ur Amphetamines Screen U Benzodiazepines Scrn Urine Cocaine Screen U Marijuana (THC) Screen 05/20/21 11:13 MCV MCH MCHC RDW Plt Count MPV Immature Gran % (Auto) Neut % (Auto) Lymph % (Auto) Owen % (Auto) Eos % (Auto) Baso % (Auto) Lymph # (Auto) Owen # (Auto) Eos # (Auto) Baso # (Auto) Abs Immat Gran (auto) Absolute Neuts (auto) Absolute Nucleated RBC Nucleated RBC % (auto) Smear Tech's Comments VBG pH VBG pCO2 VBG pO2 VBG HCO3 VBG O2 Saturation VBG Base Excess Anion Gap Estim Creat Clear Calc Estimated GFR POC Glucose 138 H Random Glucose Calcium Ammonia Urine Color Urine Appearance Urine pH Ur Specific [place] Urine Protein Urine Glucose (UA) Urine Ketones Urine Blood Urine Nitrite Ur Leukocyte Esterase Urine Opiates Screen Urine Fentanyl Screen Ur Barbiturates Screen Ur Phencyclidine Scrn Ur Amphetamines Screen U Benzodiazepines Scrn Urine Cocaine Screen U Marijuana (THC) Screen Quality Stroke Does the patient have a stroke diagnosis?: No VTE Prior VTE?: No VTE Risk Level:: Medical - moderate - high VTE Device Contraindication: Treatment Not Indicated VTE Drug Contraindication: N/A - Med Ordered
[2021-05-20] MEDS: 0.9 % Sodium Chloride Flush 3 ML SYRINGE IVFLUSH ×2 (15:33→21:04)
[2021-05-20 16:17] LABS: Glucose, Whole Blood 118 mg/dL (60-115)
--- NOTE | 2021-05-20 16:56 | PC.NURSE ---
Mental status improving throughout the day. Ambulating with one assist to BR, several times. Tolerating meals, blood sugars not requiring insulin cov'g. Denies pain. Meds as ordered.
[2021-05-20 20:27] LABS: Glucose, Whole Blood 164 mg/dL (60-115)
[2021-05-20] MEDS: Insulin Lispro 100 UNIT/ML 3 ML VIAL SUBCUT (21:01)
[2021-05-20] MEDS: QUEtiapine Fumarate 100 MG TABLET PO (21:01)
[2021-05-20] MEDS: Tamsulosin HCL 0.4 MG CAPSULE PO (21:01)
[2021-05-21] MEDS: Levothyroxine Sodium 75 MCG TABLET PO (06:36)
[2021-05-21] MEDS: Heparin Sodium,Porcine 5,000 UNIT/ML VIAL 5000 UNIT SUBCUT (06:36)
[2021-05-21 07:18] LABS: Glucose, Whole Blood 102 mg/dL (60-115)
[2021-05-21 07:30] LABS: Hematocrit 38.1 % (42-52); Hemoglobin 13.1 g/dl (14.0-18.0); Mean Corpuscular HGB Conc 34.4 g/dl (31.0-36.0); Mean Corpuscular Hemoglobin 29.8 pg (27.0-33.0); Mean Corpuscular Volume 86.6 fL (80-98); Mean Platelet Volume 9.1 fL (9.4-12.4); Platelet Count 202 X10*3/uL (160-400); Red Cell Distribution Width 13.2 % (11.0-16.0); White Blood Count 5.3 X10*3/uL (4.8-10.8)
[2021-05-21 07:41] VITALS: BP 171/80; PULSE 89; RESP 20; TEMP 37.1; O2SAT 98
[2021-05-21 07:46] LABS: Anion Gap 12 (12-20); Blood Urea Nitrogen 12 mg/dL (9-16); Calcium 9.5 mg/dL (8.4-10.2); Carbon Dioxide 23 mmol/L (22-29); Chloride 109 mmol/L (96-108); Creatinine Clr Calc Pharmacy 81.2; Estimated Glomerular Filt Rate > 60; Glucose Random 103 mg/dL (60-115); Potassium 3.2 mmol/L (3.3-5.1); Sodium 141 mmol/L (135-145)
[2021-05-21] MEDS: Metoprolol Succinate ER 100 MG TAB.ER.24H PO (08:24)
[2021-05-21] MEDS: Finasteride 5 MG TABLET PO (08:25)
[2021-05-21] MEDS: Isosorbide Mononitrate 60 MG TAB.ER.24H PO (08:25)
[2021-05-21] MEDS: Omeprazole 40 MG CAPSULE.DR PO (08:25)
[2021-05-21] MEDS: Topiramate 25 MG TABLET PO (08:25)
[2021-05-21] MEDS: Atorvastatin Calcium 40 MG TABLET PO (08:25)
[2021-05-21] MEDS: hydrALAZINE HCl 50 MG TABLET 100 MG PO (08:25)
[2021-05-21] MEDS: Montelukast Sodium 10 MG TABLET PO (08:25)
[2021-05-21] MEDS: Aspirin Enteric Coated 81 MG TABLET.DR PO (08:25)
[2021-05-21] MEDS: DULoxetine HCl 60 MG CAPSULE.DR PO (08:25)
[2021-05-21] MEDS: 0.9 % Sodium Chloride Flush 3 ML SYRINGE IVFLUSH (08:26)
[2021-05-21] MEDS: Fluticasone Propionate Nasal 16 GM SPRAY 2 SPRAY NOSTRIL-B (08:26)
[2021-05-21] MEDS: Ketotifen Fumarate 0.025% Oph 5 ML DRPBTL 1 DROP EYE-BOTH (09:54)
[2021-05-21 10:57] LABS: Glucose, Whole Blood 161 mg/dL (60-115)
[2021-05-21] MEDS: Insulin Lispro 100 UNIT/ML 3 ML VIAL SUBCUT (11:08)
[2021-05-21 11:20] VITALS: PULSE 89; O2SAT 98
--- NOTE | 2021-05-21 12:07 | MHC.CM.PN ---
Male 71 DX KE encephalopathy. T/W Spoke with the Pts son. He is requesting STR for his father. Recently, he has had a few falls. PT cesar recommending home. Patient is willing to go to STR if accepted.If he were feeling better, he would rather go home. But he is not feeling well. A referral has been sent to [facility] . He has [facility] [facility] in place. If dc to home [facility] will add P.T.. They have been notified of discharge. STR, [facility] chosenand referred, at the request of pts SON. CM will follow.
--- NOTE | 2021-05-21 13:29 | P.DS_ITS ---
DS: Providers Provider Date of Service: 05/21/21 <Yuki Garcia NP - Last Filed: 05/21/21 13:52> Date of admission: 05/19/21 17:05 <Yuki Garcia NP - Last Filed: 05/21/21 13:52> Primary care physician: Brandie Evangelista DO <Yuki Garcia NP - Last Filed: 05/21/21 13:52> Consults: 05/20/21 09:08 Consult to Neurology Routine Consulting Provider: [facility] Reason for consultation: encephalopathy, lethargy Has provider been notified: No <Yuki Garcia NP - Last Filed: 05/21/21 13:52> Attending physician on discharge: Mauro Alonso <Yuki Garcia NP - Last Filed: 05/21/21 13:52> Discharging clinician: Yuki Garcia <Yuki Garcia NP - Last Filed: 05/21/21 13:52> DS: Diagnosis Discharge Diagnosis (1) Acute renal failure: Status: Acute <Yuki Garcia NP - Last Filed: 05/21/21 13:52> (2) Acute metabolic encephalopathy: Status: Acute <Yuki Garcia NP - Last Filed: 05/21/21 13:52> DS: Summary Hospital Course Hospital Course: 71 year old man found on the ground at his home. he had been on the ground an unknown amount of time. He lives alone. Looking back at old records the patient is alert and oriented but during the interview he was completely confused, even lethargic at times.? therefore, accurate history was unable to be obtained.? His creatinine was elevated at 3.1, ammonia 24, no hypoxia or hypercarbia noted on VBG.? His urine toxicology did show fentanyl and benzodiazepines. ? Abdominal CT did not show any retained stones or blockages, h ead CT negative for acute abnormality, chest x-ray negative for consolidation or effusion. He was given 3 liters of IV fluids in the ED. ? He will be admitted for further management of acute renal failure and encephalopathy. Acute metabolic encephalopathy. Patient presented quite confused, did not know where was and was barely able to stay awake. Over the last few days he has cleared significantly and is now alert and oriented. On the initial assessment his urine toxicology was positive for frontal and benzodiazepines. Patient does take temazepam however, he denied using any drugs at any point. He does have a locked medication box that is filled by in RN. Discussion was had with the pharmacy and apparently there are medications that can cause a false positive sentinel in the urine toxicology including trazodone for which he is on. So that may be the reason why his fentanyl was positive however the concern was that he was found unresponsive at his home that taking a street drugs may have also been the cause but inconclusive at this time and patient denies vehemently that he uses street drugs including fentanyl. Brain CT was negatie for acute abnormality. He was also found to have acute renal failure and his lisinopril was held. His renal failure improved back to his baseline. He was seen and evaluated by Neurology and found not to have primary neurological process and no further neurological work up was necessary. Attending Attestation: Date of service is: 05/21/2021 Patient seen and examined on the day of discharge. Case has been discussed with the mid-level provider. I agree with the discharge summary and plan as documented above by the mid-level provider. <Yuki Garcia NP - Last Filed: 05/21/21 13:52> Time Spent with Patient Time attestation: Total time spent providing and/or coordinating discharge services: <Yuki Garcia NP - Last Filed: 05/21/21 13:52> Discharge coordination time: Greater than 30 minutes <Yuki Garcia NP - Last Filed: 05/21/21 13:52> Quality: Stroke Does the patient have a stroke diagnosis?: No <Yuki Garcia NP - Last Filed: 05/21/21 13:52> Physical Exam Vital Signs: Vital Signs: Last Vital Signs Temp 98.7 F 05/21/21 07:41 Pulse 89 05/21/21 11:20 Resp 20 05/21/21 07:41 BP 171/80 H 05/21/21 07:41 Pulse Ox 98 05/21/21 11:20 Body Mass Index 31.7 <Yuki Garcia NP - Last Filed: 05/21/21 13:52> Appearing in no acute distress head is normocephalic atraumatic eyes pupils are PERRLA sclera is anicteric mouth throat mucous membranes are intact and moist neck is supple no lymphadenopathy, no JVD noted lung sounds are clear to auscultation heart regular rate rhythm, clear S1, S2 positive bowel sounds, abdomen is soft, nontender neuro patient is alert x3, no focal deficits <Yuki Garcia NP - Last Filed: 05/21/21 13:52> DS: Data Data Completed and Pending Labs on day of discharge: Laboratory Results - last 24 hr 05/20/21 05/20/21 05/21/21 16:02 20:13 06:55 WBC 5.3 RBC 4.40 L Hgb 13.1 L Hct 38.1 L MCV 86.6 MCH 29.8 MCHC 34.4 RDW 13.2 Plt Count 202 MPV 9.1 L Absolute Nucleated RBC 0.000 Nucleated RBC % (auto) 0.0 Sodium Potassium Chloride Carbon Dioxide Anion Gap BUN Creatinine Estim Creat Clear Calc Estimated GFR POC Glucose 118 H 164 H Random Glucose Calcium 05/21/21 05/21/21 05/21/21 06:55 07:15 10:53 WBC RBC Hgb Hct MCV MCH MCHC RDW Plt Count MPV Absolute Nucleated RBC Nucleated RBC % (auto) Sodium 141 Potassium 3.2 L Chloride 109 H Carbon Dioxide 23 Anion Gap 12 BUN 12 Creatinine 1.02 Estim Creat Clear Calc 81.2 Estimated GFR > 60 POC Glucose 102 161 H Random Glucose 103 Calcium 9.5 Preliminary micro results at discharge 05/19/21 16:30 Blood Culture - Preliminary Blood - Venous No growth after 24 hours. 05/19/21 16:08 Blood Culture - Preliminary Blood - Venous No growth after 24 hours. <Yuki Garcia NP - Last Filed: 05/21/21 13:52> Discharge Plan Discharge Anticipated Discharge Date/Time: 05/21/21 11:38 <Yuki Garcia NP - Last Filed: 05/21/21 13:52> Patient Disposition: Home, Self-Care <Yuki Garcia NP - Last Filed: 05/21/21 13:52> Discharge Diagnosis: KE Acute metabolic encephalopathy <Yuki Garcia NP - Last Filed: 05/21/21 13:52> KE Acute metabolic encephalopathy <Mauro Alonso MD - Last Filed: 05/22/21 16:08> Referrals: [facility] [Outside] - 1 Week Brandie Evangelista DO [Primary Care Provider] - 1 Week <Yuki Garcia NP - Last Filed: 05/21/21 13:52> Discharge Medications: Continued finasteride 5 mg tablet 5 mg PO DAILY 90 Days Qty: 90 RF: 0 metformin 500 mg tablet 1 tab PO DAILY RF: 0 ketotifen fumarate 0.025 % (0.035 %) drops 1 drp ophthalmic (eye) BID RF: 0 topiramate 25 mg tablet 1 tab PO DAILY RF: 0 calcium carbonate [Antacid Ext Str (calcium carb)] 300 mg (750 mg) tablet,chewable 1 tab PO Q4H PRN (Reason: Heartburn) RF: 0 omeprazole 40 mg capsule,delayed release(DR/EC) 1 cap PO DAILY RF: 0 aspirin 81 mg tablet,delayed release (DR/EC) 1 tab PO DAILY RF: 0 hydralazine 100 mg tablet 100 mg PO TID RF: 0 nitroglycerin 0.4 mg tablet, sublingual 0.4 mg sublingual ONCE PRN (Reason: Chest Pain) RF: 0 albuterol sulfate 2.5 mg /3 mL (0.083 %) solution for nebulization 2.5 mg inhalation Q4-6H PRN (Reason: shortness of breath or wheezing) 30 Days Qty: 75 RF: 1 albuterol sulfate 90 mcg/actuation HFA aerosol inhaler 2 inh inhalation Q6H PRN (Reason: Shortness Of Breath) RF: 0 atorvastatin 40 mg tablet 40 mg PO DAILY RF: 0 baclofen 10 mg tablet 10 mg PO BEDTIME PRN (Reason: Pain) RF: 0 budesonide-formoterol 160-4.5 mcg/actuation HFA aerosol inhaler 2 puff inhalation BID RF: 0 duloxetine 60 mg capsule,delayed release(DR/EC) 60 mg PO DAILY RF: 0 fluticasone propionate 50 mcg/actuation spray,suspension 2 spray intranasal DAILY RF: 0 furosemide 40 mg tablet 40 mg PO DAILY RF: 0 gabapentin 100 mg capsule 100 mg PO DAILY PRN (Reason: Pain) RF: 0 isosorbide mononitrate 60 mg tablet extended release 24 hr 60 mg PO DAILY RF: 0 levothyroxine 75 mcg tablet 75 mcg PO DAILY RF: 0 meclizine 25 mg tablet 25 mg PO TID PRN (Reason: Vertigo) RF: 0 metoprolol succinate 100 mg tablet extended release 24 hr 100 mg PO DAILY RF: 0 montelukast 10 mg tablet 10 mg PO DAILY RF: 0 quetiapine 100 mg tablet 100 mg PO BEDTIME RF: 0 tamsulosin 0.4 mg capsule 0.4 mg PO BEDTIME RF: 0 temazepam 30 mg capsule 30 mg PO BEDTIME RF: 0 tiotropium bromide 18 mcg capsule, w/inhalation device 1 cap inhalation DAILY RF: 0 trazodone 150 mg tablet 150 mg PO BEDTIME RF: 0 Discontinued lisinopril 40 mg tablet 1 tab PO DAILY RF: 0 <Yuki Garcia NP - Last Filed: 05/21/21 13:52> Discharge Orders: Discharge Order (Routine); Ordered 05/21/21 Ordered By: Yuki Garcia <Yuki Garcia NP - Last Filed: 05/21/21 13:52> Diet: advance to usual diet <Yuki Garcia NP - Last Filed: 05/21/21 13:52> advance to usual diet <Mauro Alonso MD - Last Filed: 05/22/21 16:08> Activity on Discharge: As tolerated <Yuki Garcia NP - Last Filed: 05/21/21 13:52> As tolerated <Mauro Alonso MD - Last Filed: 05/22/21 16:08> Stand Alone Forms: Patient Portal Discharge page <Yuki Garcia NP - Last Filed: 05/21/21 13:52> Care Plan Goals: No further episodes of confusion <Yuki Garcia NP - Last Filed: 05/21/21 13:52> Health Concerns: Acute renal failure Acute metabolic encephalopathy <Yuki Garcia NP - Last Filed: 05/21/21 13:52> Plan of Treatment: Follow up with your primary care provider as needed <Yuki Garcia NP - Last Filed: 05/21/21 13:52> Assessment: See discharge summary <Yuki Garcia NP - Last Filed: 05/21/21 13:52> Discharge Date/Time: 05/21/21 14:06 <Yuki Garcia NP - Last Filed: 05/21/21 13:52>
--- NOTE | 2021-05-21 13:44 | MHC.CM.PN ---
Male 71 discharged home with [facility]. 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
--- NOTE | 2021-05-21 13:52 | W.MHC.F2F ---
Service Date Service Date: 05/21/21 Reasons for Services Reason for physical therapy: home safety and mobility Homebound: Leaving the home is medically contraindicated at this time without the asist of a device and/or another person due th the listed conditions above and below. Certification: Based on the above findings, I certify that this patient is confined to the home and needs intermittent penitentiary care, physical therapy and/or speech therapy, or continues to need occupational therapy. The patient is under my care, and I have initiated the establishment of the plan of care. The patient will be followed by a physician who will periodically review the plan of care.
== END 2021-05-21 14:06 | disposition home or self-care (01) | DRG 682 ==
LOC: HO.ED 15:54 → HO.EDOVER 17:55 → HO.IMC 19:28
PROVIDERS: Admitting Provider Nurse Practitioner Acute Care; Emergency Provider Emergency Medicine; PCP Family Medicine; Visit Provider Nurse Practitioner Acute Care
DX: N17.9 Acute kidney failure, unspecified (principal); G93.41 Metabolic encephalopathy; G47.33 Obstructive sleep apnea (adult) (pediatric); E66.9 Obesity, unspecified; E11.9 Type 2 diabetes mellitus without complications; Z68.31 Body mass index [BMI] 31.0-31.9, adult; Z20.822 Contact with and (suspected) exposure to COVID-19; Z79.82 Long term (current) use of aspirin; Z79.51 Long term (current) use of inhaled steroids; Z79.84 Long term (current) use of oral hypoglycemic drugs; Z79.890 Hormone replacement therapy; Z79.899 Other long term (current) drug therapy
CPT/HCPCS: 36415; 70450; 71045; 72125; 74176; 80048; 80076; 80307; 81003; 82140; 82550; 82803; 82947; 83690; 83880; 84484; 85025; 85027; 85610; 85730; 87040; 87635; 93005; 97162; 99285

== ENCOUNTER 2021-09-08 15:27 | Outpatient (REF) | payer MEDICARE, MEDICAID, SELFPAY ==
--- NOTE | ~2021-09-08 | US_ITS ---
EXAMINATION: US VENOUS ULTRASOUND WITH DOPPLER LOWER EXTREMITY, RIGHT CLINICAL INFORMATION: Right leg pain COMPARISON: Previous exam March 2021 TECHNIQUE: Ultrasound of the deep veins is performed from the hip to the calf with compression sonography and color and pulse Doppler assessment. Spectral analysis with color-flow imaging is performed. FINDINGS: There is normal venous compression and respiratory variation and augmented flow. The visualized common femoral vein, superficial femoral vein, profunda femoral vein, popliteal vein, and the trifurcation region shows no evidence of deep venous thrombosis. There is no significant popliteal fossa cyst. There is a right groin lymph node that is slightly prominent but demonstrate normal ultrasound morphology and flow. The contralateral left common femoral vein is patent. US/US venous duplex LE RT IMPRESSION: No DVT demonstrated in the right lower extremity.
== END 2021-09-08 15:28 | disposition home or self-care (01) ==
LOC: HO.US 15:27
PROVIDERS: Visit Provider Nurse Practitioner Family
DX: M79.604 Pain in right leg (principal); M79.9 Soft tissue disorder, unspecified
CPT/HCPCS: 93971

== ENCOUNTER → 2021-09-30 13:19 | Outpatient (BNVA) | payer MEDICARE, MEDICAID, SELFPAY | PROVIDERS: PCP Family Medicine; Visit Provider Surgery Vascular Surgery | DX: I83.11 Varicose veins of right lower extremity with inflammation (principal) | CPT/HCPCS: 99202 ==

== ENCOUNTER → 2021-10-02 20:35 | Outpatient (REF) | payer MEDICARE, MEDICAID, SELFPAY | LOC: HO.SL 20:35 | PROVIDERS: Visit Provider Family Medicine | DX: G47.33 Obstructive sleep apnea (adult) (pediatric) (principal) | CPT/HCPCS: 95811 ==

== ENCOUNTER 2021-10-08 10:10 | Outpatient (REF) | payer MEDICARE, MEDICAID, SELFPAY ==
--- NOTE | ~2021-10-08 | US_ITS ---
EXAMINATION: US LOWER EXTREMITY VENOUS (REFLUX EXAM), BILATERAL CLINICAL INDICATION: This is a 71-year-old male with venous insufficiency and varicose veins. COMPARISON: None. TECHNIQUE: Color flow triplex imaging and compression Doppler was performed to evaluate both the deep and the superficial systems bilaterally. To evaluate the superficial system, the examination was performed in the upright position. Color-flow Doppler ultrasound and compression ultrasound were utilized. In addition, maneuvers were utilized to demonstrate reflux. FINDINGS: 1. DEEP VENOUS ULTRASOUND OF THE RIGHT LOWER EXTREMITY: Common Femoral Vein: Compressible, normal respiratory variation and augmented flow. Femoral vein: Compressible, normal color flow and augmentation. Popliteal Vein: Compressible, normal augmentation. Deep Reflux: There is no evidence of reflux in the deep system in either the common femoral vein or the popliteal vein. There is no evidence of a Ugalde's cyst. 2. SUPERFICIAL ULTRASOUND WITH DOPPLER OF RIGHT LOWER EXTREMITY: GREAT SAPHENOUS VEIN: Saphenofemoral Junction: 1.1 cm Mid Thigh: 0.4 cm Above Knee: 0.4 cm Below Knee: 0.2 cm Mid Calf: 0.3 cm Ankle: 0.4 cm. The reflux time is 1768 ms. There is no reflux above this level. GSV REFLUX: There is only reflux seen at the ankle. DUPLICATED GREAT SAPHENOUS VEIN: There is a 0.5 cm duplicated medial great saphenous vein without reflux. There is a 0.4 cm duplicated lateral great saphenous vein without reflux. SMALL SAPHENOUS VEIN: Proximal: 0.4 cm Distal: 0.3 cm SSV REFLUX: No evidence of reflux. VEIN OF GIACOMINI: None Imaged. PERFORATORS: There are 0.3 cm perforators in the proximal and mid calf without evidence of reflux. VARICOSITIES: There are 0.3 cm proximal thigh and proximal calf varicose veins. The proximal calf varicose veins have reflux greater than 3 seconds. 3. DEEP VENOUS ULTRASOUND OF THE LEFT LOWER EXTREMITY: Common Femoral Vein: Compressible, normal respiratory variation and augmented flow. Femoral Vein: Compressible, normal color flow and augmentation. Popliteal Vein: Compressible, normal augmentation. Deep Reflux: There is no evidence of reflux in the deep system in either the common femoral vein or the popliteal vein. There is no evidence of a Ugalde's cyst. 4. SUPERFICIAL ULTRASOUND WITH DOPPLER OF LEFT LOWER EXTREMITY: GREAT SAPHENOUS VEIN: Saphenofemoral Junction: 1.1 cm Mid Thigh: 0.3 cm Above Knee: 0.3 cm Below Knee: 0.2 cm Mid Calf: 0.2 cm Ankle: 0.3 cm GSV REFLUX: No evidence of reflux. DUPLICATED GREAT SAPHENOUS VEIN: There is a 0.5 cm duplicated lateral great saphenous vein without reflux. SMALL SAPHENOUS VEIN: Proximal: 0.1 cm Distal: 0.2 cm SSV REFLUX: No evidence of reflux. VEIN OF GIACOMINI: None Imaged. PERFORATORS: There is a 0.3 cm mid thigh industrial paramedic without reflux. There is a 0.4 cm mid calf industrial paramedic without reflux. VARICOSITIES: None Imaged US/US venous duplex LE BI IMPRESSION: 1. There are patent bilateral great saphenous veins and small saphenous veins without evidence of reflux at the junctions, respectively. 2. There are varicose veins in the right proximal thigh and right proximal calf.
== END 2021-10-08 10:11 | disposition home or self-care (01) ==
LOC: HO.US 10:10
PROVIDERS: Visit Provider Surgery Vascular Surgery
DX: I83.11 Varicose veins of right lower extremity with inflammation (principal)
CPT/HCPCS: 93970

== ENCOUNTER → 2021-10-30 09:52 | Outpatient (BNVA) | payer MEDICARE, MEDICAID, SELFPAY | PROVIDERS: PCP Family Medicine; Visit Provider Surgery Vascular Surgery | DX: I83.11 Varicose veins of right lower extremity with inflammation (principal); I25.10 Atherosclerotic heart disease of native coronary artery without angina pectoris; E11.9 Type 2 diabetes mellitus without complications; I10 Essential (primary) hypertension; E78.5 Hyperlipidemia, unspecified; E66.9 Obesity, unspecified; G47.33 Obstructive sleep apnea (adult) (pediatric); Z68.36 Body mass index [BMI] 36.0-36.9, adult; Z86.16 Personal history of COVID-19; Z91.09 Other allergy status, other than to drugs and biological substances | CPT/HCPCS: 99212 ==

== ENCOUNTER 2022-02-18 15:58 | Emergency (ER) | payer MEDICARE, MEDICAID, SELFPAY ==
--- NOTE | ~2022-02-18 | XR_ITS ---
EXAMINATION: XR CHEST CLINICAL INFORMATION: Chest pain. COMPARISON: Chest radiograph 05/19/2021. TECHNIQUE: PA view of the chest was obtained. FINDINGS: Stable prominence of the cardiomediastinal silhouette. Chronic right-sided rib deformities with similar associated subpleural thickening. Unchanged mild blunting of the right costophrenic angle. No new focal airspace opacity. No pneumothorax. No acute osseous abnormalities. XR/XR chest 1V IMPRESSION: No acute cardiopulmonary findings.
--- NOTE | 2022-02-18 16:14 | ECG_ITS ---
Test Reason : CHEST PAIN Blood Pressure : / mmHG Vent. Rate : 080 BPM Atrial Rate : 080 BPM P-R Int : 154 ms QRS Dur : 096 ms QT Int : 360 ms P-R-T Axes : 050 -41 -47 degrees QTc Int : 415 ms Normal sinus rhythm Left axis deviation Nonspecific ST and T wave abnormality Abnormal ECG When compared with ECG of 19-MAY-2021 12:41, No significant change was found Referred By: Generic ED Physician Electronically Signed By:FIONA MARIO
[2022-02-18 16:16] VITALS: BP 175/91; PULSE 79; RESP 18; TEMP 36.8; O2SAT 97; BMI 36.3
[2022-02-18 17:05] LABS: MANUAL DIFF FLAG NO
[2022-02-18 17:08] LABS: Basophils Percent Auto 0.6 % (0-2); Eosinophils Absolute Auto 0.1 X10*3/uL (0.0-0.4); Eosinophils Percent Auto 2.3 % (0-4); Hematocrit 35.8 % (42.0-52.0); Hemoglobin 12.2 g/dl (14.0-18.0); Imm Gran Abs Auto 0.04 X10*3/uL (0.00-0.03); Imm Gran Pct Auto 0.8 % (0.0-0.4); Lymphocytes Absolute Auto 1.4 X10*3/uL (1.2-4.9); Lymphocytes Percent Auto 29.5 % (20-40); Mean Corpuscular HGB Conc 34.1 g/dl (31.0-36.0); Mean Corpuscular Hemoglobin 30.4 pg (27.0-33.0); Mean Corpuscular Volume 89.3 fL (80.0-98.0); Monocytes Absolute Auto 0.7 X10*3/uL (0.1-1.2); Monocytes Percent Auto 13.6 % (2-11); Neutrophils Absolute Auto 2.6 x10*3/uL (2.0-8.3); Neutrophils Percent Auto 53.2 % (45-73); Platelet Count 187 X10*3/uL (160-400); Red Blood Count 4.01 X10*6/uL (4.60-5.80); Red Cell Distribution Width 13.2 % (11.0-16.0); White Blood Count 4.8 X10*3/uL (4.8-10.8)
[2022-02-18 17:31] LABS: Anion Gap 10 (12-20); Blood Urea Nitrogen 9 mg/dL (9-16); Calcium 9.7 mg/dL (8.4-10.2); Carbon Dioxide 27 mmol/L (22-29); Chloride 106 mmol/L (96-108); Estimated Glomerular Filt Rate > 60; Glucose Random 157 mg/dL (60-115); Potassium 3.9 mmol/L (3.3-5.1); Sodium 139 mmol/L (135-145)
[2022-02-18 17:41] LABS: Troponin-I High Sensitivity 10.3 ng/L (<3.5-35.0)
--- NOTE | 2022-02-18 21:03 | PC.NURSE ---
pt left without being seen
== END 2022-02-18 21:03 | disposition left against medical advice (07) ==
PROVIDERS: Emergency Provider Emergency Medicine; PCP Family Medicine
DX: R07.9 Chest pain, unspecified (principal); I10 Essential (primary) hypertension; H53.8 Other visual disturbances; E11.9 Type 2 diabetes mellitus without complications; E78.5 Hyperlipidemia, unspecified; E66.9 Obesity, unspecified; Z68.36 Body mass index [BMI] 36.0-36.9, adult
CPT/HCPCS: 36415; 71045; 80048; 84484; 85025; 93005; 99283; 99284

== ENCOUNTER → 2022-05-27 13:31 | Outpatient (BNVA) | payer MEDICARE, MEDICAID, SELFPAY | PROVIDERS: PCP Family Medicine; Visit Provider Surgery | DX: Z01.818 Encounter for other preprocedural examination (principal); D17.0 Benign lipomatous neoplasm of skin and subcutaneous tissue of head, face and neck | CPT/HCPCS: 99212 ==

== ENCOUNTER → 2022-05-28 13:12 | Outpatient (BNVA) | payer MEDICARE, MEDICAID, SELFPAY | PROVIDERS: PCP Family Medicine; Visit Provider Internal Medicine | DX: G47.33 Obstructive sleep apnea (adult) (pediatric) (principal); J44.9 Chronic obstructive pulmonary disease, unspecified; J30.9 Allergic rhinitis, unspecified; E66.9 Obesity, unspecified; Z68.37 Body mass index [BMI] 37.0-37.9, adult | CPT/HCPCS: 99212 ==

== ENCOUNTER 2022-06-23 09:09 | Day surgery (SDC) | payer MEDICARE, MEDICAID, SELFPAY ==
[2022-06-17 12:44] VITALS: BMI 36.5
[2022-06-17 13:40] VITALS: BP 170/74; PULSE 83; RESP 16; O2SAT 97
--- NOTE | 2022-06-22 08:42 | HO.ANESPROP2 ---
Documented by User: Kristine Tellez NP 06/22/22 10:28 HPI - Anesthesia Eval Consult details Narrative: 72yo M for Left Excision Lipoma on neck under anesthesia Eval by Dr Coleman at [facility]. Hector lauren to be available. [facility] Active Problems Active Problems: All Active Problems (Updated 05/28/22 @ 14:05 by Ibis Peralta MD) Varicose veins of right lower extremity with inflammation (Acute) LUCA (obstructive sleep apnea) (Acute) Obesity (BMI 30-39.9) (Acute) Lipoma of neck (Acute) History of right cataract surgery (Acute) Coronary artery disease (Acute) Chronic low back pain (Acute) Asthma (Acute) Hyperlipidemia (Acute) BPH (benign prostatic hyperplasia) (Acute) Allergic rhinitis (Acute) COPD (chronic obstructive pulmonary disease) (Acute) Past Medical History Medical History (Updated 05/28/22 @ 14:05 by Ibis Peralta MD) Allergic rhinitis Asthma BPH (benign prostatic hyperplasia) Chronic low back pain COPD (chronic obstructive pulmonary disease) Coronary artery disease COVID-19 vaccine administered Diabetes Hyperlipidemia Hypertension Lipoma of neck Obesity (BMI 30-39.9) Obesity (BMI 30-39.9) LUCA (obstructive sleep apnea) LUCA (obstructive sleep apnea) Personal history of COVID-19 Family History Family history of problems with anesthesia: No Surgical History Surgical History (Updated 06/17/22 @ 12:43 by Barbara Avalos, JULIANN) H/O colonoscopy History of esophagogastroduodenoscopy (EGD) History of right cataract surgery Hx of cardiac catheterization Hx of circumcision History of Problems with Anesthesia: No Social History Social History (Updated 06/17/22 @ 12:43 by Barbara Avalos, JULIANN) Household Members: None Housing: Apartment Are you a primary child day care center worker to a significant other at home: No 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 If so, by whom?: No Are you DNR?: No Advance Directives: Yes Advance Directives Information Provided: No Advance Directives on File: Yes Advance Directives Date on File: 05/14/20 Recently lost weight without trying: No Poor oral hygiene: No service: No Meds Allergies Allergy/AdvReac Type Severity Reaction Status Date / Time Environmental Allergy Intermediate RUNNING Uncoded 05/28/22 13:48 NOSE, ITCHING SNEEZING Home Medications Medication Instructions Recorded Confirmed Last Taken Type nitroglycerin 0.4 mg sublingual 0.4 mg sublingual ONCE PRN Chest 09/12/20 06/17/22 Unknown History tablet Pain albuterol sulfate 90 mcg/actuation 2 inh inhalation Q6H PRN Shortness 10/24/20 06/17/22 Unknown History aerosol inhaler Of Breath atorvastatin 40 mg tablet 40 mg PO DAILY 10/24/20 06/17/22 Unknown History baclofen 10 mg tablet 10 mg PO BEDTIME PRN Pain 10/24/20 06/17/22 Unknown History budesonide-formoterol HFA 160 2 puff inhalation BID 10/24/20 06/17/22 Unknown History mcg-4.5 mcg/actuation aerosol inhaler duloxetine 60 mg capsule,delayed 60 mg PO DAILY 10/24/20 06/17/22 Unknown History release fluticasone propionate 50 2 spray intranasal DAILY 10/24/20 06/17/22 Unknown History mcg/actuation nasal spray,suspension furosemide 40 mg tablet 40 mg PO DAILY 10/24/20 06/17/22 Unknown History gabapentin 100 mg capsule 100 mg PO DAILY PRN Pain 10/24/20 06/17/22 Unknown History isosorbide mononitrate 60 mg 60 mg PO DAILY 10/24/20 06/17/22 Unknown History tablet,extended release 24 hr levothyroxine 75 mcg tablet 75 mcg PO DAILY 10/24/20 06/17/22 Unknown History meclizine 25 mg tablet 25 mg PO TID PRN Vertigo 10/24/20 06/17/22 Unknown History metoprolol succinate 100 mg 100 mg PO DAILY 10/24/20 06/17/22 Unknown History tablet,extended release 24 hr montelukast 10 mg tablet 10 mg PO BEDTIME 10/24/20 06/17/22 Unknown History quetiapine 100 mg tablet 100 mg PO BEDTIME 10/24/20 06/17/22 Unknown History tamsulosin 0.4 mg capsule 0.4 mg PO BEDTIME 10/24/20 06/17/22 Unknown History temazepam 30 mg capsule 30 mg PO BEDTIME 10/24/20 06/17/22 Unknown History tiotropium bromide 18 mcg capsule 1 cap inhalation DAILY 10/24/20 06/17/22 Unknown History with inhalation device trazodone 150 mg tablet 150 mg PO BEDTIME 10/24/20 06/17/22 Unknown History aspirin 81 mg tablet,delayed 1 tab PO DAILY 05/19/21 06/17/22 Unknown History release calcium carbonate 300 mg (750 mg) 1 tab PO Q4H PRN Heartburn 05/19/21 06/17/22 Unknown History chewable tablet (Antacid Extra Strength (calcium carb)) hydralazine 100 mg tablet 100 mg PO TID 05/19/21 06/17/22 Unknown History metformin 500 mg tablet 1 tab PO DAILY 05/19/21 06/17/22 Unknown History omeprazole 40 mg capsule,delayed 1 cap PO DAILY 05/19/21 06/17/22 Unknown History release topiramate 25 mg tablet 1 tab PO DAILY 05/19/21 06/17/22 Unknown History bupropion HCl 150 mg 24 hr tablet, 150 mg PO DAILY 10/30/21 06/17/22 Unknown History extended release alcohol swabs pad topical 05/27/22 05/27/22 Unknown History Exam Exam Date and Time: June 22, 2022 0842 Height,Weight and Vital Signs: Height 5 ft 8 in Weight 108.862 kg Last Vital Signs Pulse 83 06/17/22 13:40 Resp 16 06/17/22 13:40 BP 170/74 H 06/17/22 13:40 Pulse Ox 97 06/17/22 13:40 O2 Del Method 06/17/22 13:40 Pertinent Lab Results Pertinent Lab Results: Laboratory Tests 02/18/22 02/18/22 16:53 16:53 WBC 4.8 Hgb 12.2 L Hct 35.8 L Plt Count 187 Sodium 139 Potassium 3.9 D Chloride 106 Carbon Dioxide 27 BUN 9 Creatinine 1.01 Narrative Narrative: EKG 01/2022 Vent. Rate : 080 BPM ? ? Atrial Rate : 080 BPM ?? P-R Int : 154 ms? QRS Dur : 096 ms ? ? QT Int : 360 ms ? ? ? P-R-T Axes : 050 -41 -47 degrees ?? QTc Int : 415 ms ? Normal sinus rhythm Left axis deviation Nonspecific ST and T wave abnormality Abnormal ECG When compared with ECG of 19-MAY-2021 12:41, No significant change was found Assessment and Plan Assessment Anesthesia Assessment: Chart Reviewed Final Anesthetic Review Family History of Problems with Anesthesia: No History of Problems with Anesthesia: No Documented by User: Sinan Mccullough MD 06/23/22 11:49 PMF Past Medical History Medical History (Updated 05/28/22 @ 14:05 by Ibis Peralta MD) Allergic rhinitis Asthma BPH (benign prostatic hyperplasia) Chronic low back pain COPD (chronic obstructive pulmonary disease) Coronary artery disease COVID-19 vaccine administered Diabetes Hyperlipidemia Hypertension Lipoma of neck Obesity (BMI 30-39.9) Obesity (BMI 30-39.9) LUCA (obstructive sleep apnea) LUCA (obstructive sleep apnea) Personal history of COVID-19 Surgical History Surgical History (Updated 06/17/22 @ 12:43 by Barbara Avalos, RN) H/O colonoscopy History of esophagogastroduodenoscopy (EGD) History of right cataract surgery Hx of cardiac catheterization Hx of circumcision Social History Social History (Updated 06/17/22 @ 12:43 by Barbara Avalos, RN) Household Members: None Housing: Apartment Are you a primary child day care center worker to a significant other at home: No 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 If so, by whom?: No Are you DNR?: No Advance Directives: Yes Advance Directives Information Provided: No Advance Directives on File: Yes Advance Directives Date on File: 05/14/20 Recently lost weight without trying: No Poor oral hygiene: No service: No Meds Allergies Allergy/AdvReac Type Severity Reaction Status Date / Time Environmental Allergy Intermediate RUNNING Uncoded 05/28/22 13:48 NOSE, ITCHING SNEEZING Home Medications Medication Instructions Recorded Confirmed Last Taken Type nitroglycerin 0.4 mg sublingual 0.4 mg sublingual ONCE PRN Chest 09/12/20 06/17/22 Unknown History tablet Pain albuterol sulfate 90 mcg/actuation 2 inh inhalation Q6H PRN Shortness 10/24/20 06/17/22 Unknown History aerosol inhaler Of Breath atorvastatin 40 mg tablet 40 mg PO DAILY 10/24/20 06/17/22 Unknown History baclofen 10 mg tablet 10 mg PO BEDTIME PRN Pain 10/24/20 06/17/22 Unknown History budesonide-formoterol HFA 160 2 puff inhalation BID 10/24/20 06/17/22 Unknown History mcg-4.5 mcg/actuation aerosol inhaler duloxetine 60 mg capsule,delayed 60 mg PO DAILY 10/24/20 06/17/22 Unknown History release fluticasone propionate 50 2 spray intranasal DAILY 10/24/20 06/17/22 Unknown History mcg/actuation nasal spray,suspension furosemide 40 mg tablet 40 mg PO DAILY 10/24/20 06/17/22 Unknown History gabapentin 100 mg capsule 100 mg PO DAILY PRN Pain 10/24/20 06/17/22 Unknown History isosorbide mononitrate 60 mg 60 mg PO DAILY 10/24/20 06/17/22 Unknown History tablet,extended release 24 hr levothyroxine 75 mcg tablet 75 mcg PO DAILY 10/24/20 06/17/22 Unknown History meclizine 25 mg tablet 25 mg PO TID PRN Vertigo 10/24/20 06/17/22 Unknown History metoprolol succinate 100 mg 100 mg PO DAILY 10/24/20 06/17/22 Unknown History tablet,extended release 24 hr montelukast 10 mg tablet 10 mg PO BEDTIME 10/24/20 06/17/22 Unknown History quetiapine 100 mg tablet 100 mg PO BEDTIME 10/24/20 06/17/22 Unknown History tamsulosin 0.4 mg capsule 0.4 mg PO BEDTIME 10/24/20 06/17/22 Unknown History temazepam 30 mg capsule 30 mg PO BEDTIME 10/24/20 06/17/22 Unknown History tiotropium bromide 18 mcg capsule 1 cap inhalation DAILY 10/24/20 06/17/22 Unknown History with inhalation device trazodone 150 mg tablet 150 mg PO BEDTIME 10/24/20 06/17/22 Unknown History aspirin 81 mg tablet,delayed 1 tab PO DAILY 05/19/21 06/17/22 Unknown History release calcium carbonate 300 mg (750 mg) 1 tab PO Q4H PRN Heartburn 05/19/21 06/17/22 Unknown History chewable tablet (Antacid Extra Strength (calcium carb)) hydralazine 100 mg tablet 100 mg PO TID 05/19/21 06/17/22 Unknown History metformin 500 mg tablet 1 tab PO DAILY 05/19/21 06/17/22 Unknown History omeprazole 40 mg capsule,delayed 1 cap PO DAILY 05/19/21 06/17/22 Unknown History release topiramate 25 mg tablet 1 tab PO DAILY 05/19/21 06/17/22 Unknown History bupropion HCl 150 mg 24 hr tablet, 150 mg PO DAILY 10/30/21 06/17/22 Unknown History extended release alcohol swabs pad topical 05/27/22 05/27/22 Unknown History Exam Airway Mallampati Class: III TM Dist: >3cm Neck ROM: Full Denture: Lower Loose/Missing/Broken Teeth: No Heart: ok Lungs: ok Assessment and Plan Final Anesthetic Review NPO: Yes ASA Class: IV Final Preanesthetic Review: No Changes in Pt Med Stat, Meds/Allgs Chart Reviewed, Consent Obtained/Reviewed and Anes Risks/Benef Reviewed Patient Risk: High Procedure Risk: Low Anesthetic Plan Anesthetic Plan: GA and Agree w/ Assess. and Plan Disposition: Standard PACU
[2022-06-23] VITALS (7 sets, daily range): BP systolic 144–159; BP diastolic 72–88; PULSE 72–78; RESP 16–18; TEMP 36.5–36.8; O2SAT 93–98
[2022-06-23] MEDS: Lactated Ringers 1,000 ML 100 ML IVCONT (10:23)
[2022-06-23 10:25] LABS: Glucose, Whole Blood 141 mg/dL (60-115)
--- NOTE | 2022-06-23 11:24 | MHC.SHP ---
Pre-Procedural Eval Section A Date of Service: 06/23/22 The patient is an INPATIENT: No Changes since office visit: No Cold of Flu in the past 2 weeks, No New Medical Problems, No Changes in Medication and No Patient answered all questions The History & Physical has been completed within 30 days and I have reviewed it.: Yes Section B Chief Complaint: Benign lipomatous neoplasm of skin and subcutaneou Allergies: Allergies Allergy/AdvReac Type Severity Reaction Status Date / Time Environmental Allergy Intermediate RUNNING Uncoded 05/28/22 13:48 NOSE, ITCHING SNEEZING Plan I have reviewed the history and physical and performed a pertinent physical examination on my patient. No changes have occurred unless specified.
--- NOTE | 2022-06-23 12:24 | P.OP_ITS ---
Operative Note Operative Note Date of Service: 06/23/22 Narrative: Preop diagnosis: Lipoma left neck Postop diagnosis: Lipoma left neck Procedure: Excision of lipoma, left neck under anesthesia Surgeon: Tray Li MD high school assistant principal: PHILLY Yun The patient is a 72-year-old male with a lipomatous mass on the left neck. He wanted this removed. He understood the technique of excision under anesthesia. He was aware of the risks, benefits, and alternatives He was brought to the operating room. Was placed supine on the table under general anesthesia via laryngeal mask airway. The head was turned to the right expose the lipoma on the left neck. The lipoma was well-defined, mobile, about 4 cm diameter and was located below the ear. This area was prepped and draped. Lidocaine 1% was used for local anesthesia. I made an incision on the skin overlying this lipoma using a blade 15 and this was carried down with electrocautery through the full-thickness of the skin and subcutaneous layer until was able to visualize the lipomatous tissue. I sharply dissected the lipoma off of the rest of the subcutaneous layer using electrocautery and Metzenbaum scissors until this was delivered and sent as a specimen. This measured 4 cm in diameter . I observed for hemostasis on the excision site. Oozing areas was cauterized. I irrigated. I closed the deep subcutaneous layer with Dexon 3-0 interrupted sutures. Skin closure was achieved with simple interrupted nylon 3-0 sutures. Dressings were applied. The area was infiltrated with Marcaine 0.5% for postop JOÃO. The procedure was completed. He tolerated procedure well. There were no immediate complications. Estimated blood loss was about 5 cc . The patient was extubated without difficulty and transferred to the recovery room with stable vital signs.
== END 2022-06-23 13:54 | disposition home or self-care (01) ==
PROVIDERS: PCP Family Medicine; Visit Provider Surgery
PROC: (CPT 21552; principal; 2022-06-23 11:00)
DX: D17.0 Benign lipomatous neoplasm of skin and subcutaneous tissue of head, face and neck (principal); I10 Essential (primary) hypertension; E11.9 Type 2 diabetes mellitus without complications; I25.10 Atherosclerotic heart disease of native coronary artery without angina pectoris; J44.9 Chronic obstructive pulmonary disease, unspecified; Z79.82 Long term (current) use of aspirin; Z79.84 Long term (current) use of oral hypoglycemic drugs; Z79.899 Other long term (current) drug therapy
CPT/HCPCS: 21552; 82947; 88304; J0690; J2795; J3010

== ENCOUNTER → 2022-07-06 13:58 | Outpatient (BNVA) | payer MEDICARE, MEDICAID, SELFPAY | PROVIDERS: PCP Family Medicine; Visit Provider Surgery | DX: Z48.817 Encounter for surgical aftercare following surgery on the skin and subcutaneous tissue (principal); Z87.2 Personal history of diseases of the skin and subcutaneous tissue | CPT/HCPCS: 99212 ==

== ENCOUNTER → 2022-07-29 13:47 | Outpatient (BNVA) | payer MEDICARE, MEDICAID, SELFPAY | PROVIDERS: PCP Family Medicine; Visit Provider Internal Medicine | DX: G47.33 Obstructive sleep apnea (adult) (pediatric) (principal); J30.9 Allergic rhinitis, unspecified; J44.9 Chronic obstructive pulmonary disease, unspecified; E66.9 Obesity, unspecified; Z68.35 Body mass index [BMI] 35.0-35.9, adult; Z79.899 Other long term (current) drug therapy | CPT/HCPCS: 99212 ==

== ENCOUNTER → 2022-11-23 13:22 | Outpatient (BNVA) | payer OTHER, SELFPAY | PROVIDERS: PCP Family Medicine; Visit Provider Internal Medicine | DX: G47.33 Obstructive sleep apnea (adult) (pediatric) (principal); J30.9 Allergic rhinitis, unspecified; J44.9 Chronic obstructive pulmonary disease, unspecified; E66.9 Obesity, unspecified; Z68.35 Body mass index [BMI] 35.0-35.9, adult | CPT/HCPCS: 99212 ==

== ENCOUNTER → 2023-01-27 14:04 | Outpatient (BNVA) | payer OTHER, SELFPAY | PROVIDERS: Visit Provider Internal Medicine | DX: G47.33 Obstructive sleep apnea (adult) (pediatric) (principal); E66.9 Obesity, unspecified; J44.9 Chronic obstructive pulmonary disease, unspecified; J30.9 Allergic rhinitis, unspecified; Z68.35 Body mass index [BMI] 35.0-35.9, adult | CPT/HCPCS: 99212 ==

== ENCOUNTER 2023-04-05 11:01 | Outpatient (AMB) | payer OTHER, SELFPAY ==
[2023-04-05 11:03] VITALS: BP 166/80; PULSE 92; TEMP 36.3; O2SAT 96; BMI 34.9
--- NOTE | 2023-04-05 11:03 | A.OFFVIS_ITS ---
Intake Vital Signs 04/05/23 11:03 Height 5 ft 8 in Weight 229 lb 4.492 oz BMI 34.9 BP 166/80 H Blood Pressure Location Rt brachial Position Sitting Pulse 92 Pulse Source Pulse Oximeter Temp 97.3 F Temp Source Skin Pulse Oximetry (%) 96 Intake Visit Reasons: Diffuse joint pain Intake Note: New pt presents today for diffuse joint pain. Pain started approx 3 years ago Flight Test Data Acquisition Technician Required: Yes Flight Test Data Acquisition Technician Name: MARITIME GUARD Accompanied by: Self / Same As Patient Allergies Environmental Allergy (Intermediate, Uncoded 04/05/23 11:16) RUNNING NOSE, ITCHING SNEEZING Medication List - Last Reconciled 04/05/23 by Estefania Reilly MD acetaminophen ER 650 mg PO TID albuterol sulfate 90 mcg/actuation 2 inhalations inhalation Q6H PRN albuterol sulfate 2.5 mg (3 mL) inhalation Q4-6H PRN 30 days alcohol swabs pad topical ascorbic acid (vitamin C) PO aspirin 1 tab PO DAILY atorvastatin 40 mg PO DAILY baclofen 10 mg PO BEDTIME PRN budesonide-formoterol 160-4.5 mcg/actuation 2 puffs inhalation BID bupropion HCl 150 mg PO DAILY bupropion HCl 300 mg PO DAILY calcium carbonate (Antacid Extra Strength (calcium carb)) 1 tab PO Q4H PRN cetirizine 10 mg PO DAILY cholecalciferol (vitamin D3) 50 mcg PO DAILY clonidine HCl 0.2 mg PO BEDTIME docusate sodium 100 mg PO BID duloxetine 60 mg PO DAILY ferrous sulfate (FeroSul) mg PO finasteride 5 mg PO DAILY 90 days fluticasone propionate 50 mcg/actuation 2 sprays intranasal DAILY furosemide 40 mg PO DAILY gabapentin 100 mg PO DAILY PRN hydralazine 100 mg PO TID ibuprofen 600 mg PO Q6H PRN isosorbide mononitrate ER 60 mg PO DAILY levothyroxine 75 mcg PO DAILY meclizine 25 mg PO TID PRN metformin 1 tab PO DAILY metoprolol succinate ER 200 mg PO DAILY metoprolol succinate ER 200 mg PO DAILY montelukast 10 mg PO BEDTIME rsspswrw-[id number]-CS-lycopen-lutein 0.4 mg-300 mcg- 250 mcg (Cerovite Senior) tabs PO nitroglycerin 0.4 mg sublingual ONCE PRN omeprazole 1 cap PO DAILY polyethylene glycol 3350 17 grams PO DAILY quetiapine 200 mg PO BEDTIME quetiapine 200 mg PO BEDTIME tamsulosin 0.4 mg PO BEDTIME temazepam 30 mg PO BEDTIME tiotropium bromide 1 cap inhalation DAILY topiramate 1 tab PO DAILY tramadol 50 mg PO Q6H PRN trazodone 150 mg PO BEDTIME HPI HPI Comments History of Present Illness Details This is a 72-year-old male with complex past medical history who presents for evaluation of multiple joint pain, intermittent swelling of his ankles. States that the swelling of his ankles and feet usually happens when he comes back home after walking outside for a while. States that the swelling is not particularly worse in the morning or at night. He is unaware of any family history of autoimmune rheumatic disease. Gets some tingling and numbness in his feet. He is having some difficulty obtaining his CPAP machine. [facility] Medical History LUCA (obstructive sleep apnea) Obesity (BMI 30-39.9) Lipoma of neck Coronary artery disease Chronic low back pain Asthma Hyperlipidemia BPH (benign prostatic hyperplasia) Diabetes COVID-19 vaccine administered Personal history of COVID-19 Hypertension Allergic rhinitis COPD (chronic obstructive pulmonary disease) LUCA (obstructive sleep apnea) Obesity (BMI 30-39.9) Surgical History Hx of cardiac catheterization History of right cataract surgery Hx of circumcision History of esophagogastroduodenoscopy (EGD) H/O colonoscopy Family History Mother No problems noted. Father No problems noted. Social History Household Members: None Housing: Apartment Are you a primary acute care physical therapist to a significant other at home: No Do you presently have visiting nurse or other home services: Yes (MARITIME GUARD) Alcohol intake: never Patient Tobacco Use Status: Never used Tobacco Advance Directives Date on File: 05/14/20 service: No Review of Systems ENT Reports vertigo and Reports dizziness Card Reports chest pain and Reports dyspnea Resp Reports dyspnea Musc Reports back pain, Reports arthralgias, Reports joint swelling, Reports numbness and Reports tingling Neuro Reports vertigo, Reports dizziness, Reports numbness and Reports tingling Physical Exam Vital Signs: Last Vital Signs Temp 97.3 F 04/05/23 11:03 Pulse 92 04/05/23 11:03 BP 166/80 H 04/05/23 11:03 Pulse Ox 96 04/05/23 11:03 BMI result Body Mass Index 34.9 Const General: cooperative, healthy appearing and comfortable Nutritional Appearance: obese Orientation/consciousness: patient oriented x3 Limitations: no limitations HEENT Head: Yes normocephalic and Yes atraumatic Mouth: moist mucous membranes Resp Effort & Inspection: normal respiratory effort and able to speak in complete s entences Auscultation: clear to auscultation bilaterally Skin General skin exam: no rashes or lesions noted Neuro General: patient oriented x3 Extrem Other: No active synovitis Few fibromyalgia tender points Assessment & Plan Assessment & Plan (1) Polyarthralgia: Code(s): M25.50 - Pain in unspecified joint Plan: This is a 72-year-old male with complex past medical history of presents for evaluation of multiple joint pain. I do not see any evidence of inflammatory arthritis upon my evaluation. Advised patient to try to reduce stress, uses CPAP machine regularly. Follow-up with PCP Plan I spent 28 minutes reviewing patient's chart, evaluating patient, ordering diagnostic workup, counseling patient and documenting in the chart Coding Level of Care Code New Pt Level 3 (28499) Diagnoses Polyarthralgia M25.50
== END 2023-04-05 11:37 | disposition home or self-care (01) ==
PROVIDERS: PCP Family Medicine; Referring Provider Family Medicine; Visit Provider Student in an Organized Health Care Education/Training Program
DX: M25.50 Pain in unspecified joint (principal)
CPT/HCPCS: 99203

== ENCOUNTER → 2023-04-05 11:01 | Outpatient (BNVA) | payer OTHER, SELFPAY | PROVIDERS: PCP Family Medicine; Referring Provider Family Medicine; Visit Provider Student in an Organized Health Care Education/Training Program | DX: M25.50 Pain in unspecified joint (principal) | CPT/HCPCS: 99202 ==

== ENCOUNTER 2023-05-20 10:39 | Outpatient (REF) | payer OTHER, SELFPAY ==
[2023-05-20 11:44] LABS: MANUAL DIFF FLAG NO
[2023-05-20 11:47] LABS: Basophils Percent Auto 0.6 % (0-2); Eosinophils Absolute Auto 0.1 X10*3/uL (0.0-0.4); Eosinophils Percent Auto 1.3 % (0-4); Hematocrit 38.4 % (42.0-52.0); Hemoglobin 12.9 g/dl (14.0-18.0); Imm Gran Abs Auto 0.02 X10*3/uL (0.00-0.03); Imm Gran Pct Auto 0.4 % (0.0-0.4); Lymphocytes Absolute Auto 1.1 X10*3/uL (1.2-4.9); Lymphocytes Percent Auto 20.8 % (20-40); Mean Corpuscular HGB Conc 33.6 g/dl (31.0-36.0); Mean Corpuscular Hemoglobin 29.3 pg (27.0-33.0); Mean Corpuscular Volume 87.3 fL (80.0-98.0); Mean Platelet Volume 8.9 fL (9.4-12.4); Monocytes Absolute Auto 0.8 X10*3/uL (0.1-1.2); Monocytes Percent Auto 14.3 % (2-11); Neutrophils Absolute Auto 3.3 x10*3/uL (2.0-8.3); Neutrophils Percent Auto 62.6 % (45-73); Platelet Count 213 X10*3/uL (160-400); Red Cell Distribution Width 13.3 % (11.0-16.0); White Blood Count 5.3 X10*3/uL (4.8-10.8)
[2023-05-20 11:56] LABS: Estimated Average Glucose 137 mg/dL; Hemoglobin A1c % 6.4 % (<6.0)
[2023-05-20 12:18] LABS: Creatinine Urine 124.33 mg/dL; Microalbum/Creatinine Ratio Ur 49.8 ug/mg cr (<30)
[2023-05-20 12:23] LABS: Alanine Aminotransferase 21 U/L (0-40); Albumin Level 4.1 g/dL (3.5-5.0); Alkaline Phosphatase 62 U/L (39-117); Anion Gap 12 (12-20); Aspartate Amino Transferase 16 U/L (5-37); Bilirubin Direct 0.3 mg/dL (0.0-0.5); Bilirubin Total 0.7 mg/dL (0.0-1.0); Blood Urea Nitrogen 9 mg/dL (9-16); Calcium 9.9 mg/dL (8.4-10.2); Carbon Dioxide 30 mmol/L (22-29); Chloride 103 mmol/L (96-108); Cholesterol 75 mg/dL (<200); Estimated Glomerular Filt Rate > 60; Glucose Random 131 mg/dL (60-115); HDL Cholesterol 29 mg/dL (>40); Iron 43 mcg/dL (45-160); LDL Cholesterol Calculated 28 mg/dL (<100); Percent Iron Saturation 21 % (15-50); Potassium 3.7 mmol/L (3.3-5.1); Sodium 141 mmol/L (135-145); Total Iron Binding Capacity 208 mcg/dL (228-428); Total Protein 6.7 g/dL (6.5-8.0); Triglycerides 92 mg/dL (<150); Unsaturated Iron Binding 165 ug/dL
[2023-05-20 12:29] LABS: Syphilis Screen Nonreactive (Nonreactive)
[2023-05-20 12:31] LABS: HBS Num1 86.86 mIU/mL (0-7.99); HBsAGNum1 0.33 S/CO (0.00-0.99); HIV AB/AG Nonreactive (Nonreactive); HIV Num 1 0.05 S/CO (0.00-0.99); Hepatitis B Surface Antigen Negative (Negative); ~HepC Num1 0.08 S/CO (0.00-0.79); ~Hepatitis B Surface Antibody REACTIVE (Nonreactive); ~Hepatitis C Antibody Nonreactive (Nonreactive)
[2023-05-20 12:39] LABS: Thyroid Stimulating Hormone 1.82 uIU/mL (0.32-4.0); Vitamin D 25-OH Total 50.8 ng/mL (>30)
[2023-05-20 12:43] LABS: Folate 15.3 ng/mL (> or = 4.0); Vitamin B12 550 pg/mL (200-900)
[2023-05-20 14:30] LABS: CT PCR NOT DETECTED (Not Detect.); NG PCR NOT DETECTED (Not Detect.)
== END 2023-05-20 10:40 | disposition home or self-care (01) ==
LOC: HO.HHCL 10:39
PROVIDERS: Visit Provider Family Medicine
DX: Z11.4 Encounter for screening for human immunodeficiency virus [HIV] (principal); E11.9 Type 2 diabetes mellitus without complications; Z20.2 Contact with and (suspected) exposure to infections with a predominantly sexual mode of transmission
CPT/HCPCS: 0353U; 80048; 80061; 80076; 82043; 82306; 82570; 82607; 82746; 83036; 83540; 84439; 84443; 85025; 86706; 86780; 86803; 87340; 87389

== ENCOUNTER 2023-07-23 14:47 | Outpatient (REF) | payer OTHER, SELFPAY | END 2023-07-23 14:48 | disposition home or self-care (01) | LOC: HO.CT 14:47 | PROVIDERS: PCP Family Medicine; Visit Provider Family Medicine | DX: R68.89 Other general symptoms and signs (principal) | CPT/HCPCS: 70450 ==

== ENCOUNTER → 2023-10-04 12:16 | Day surgery (SDC) | payer OTHER, SELFPAY ==
[2023-09-30 14:34] VITALS: BMI 34.2
--- NOTE | 2023-10-01 12:23 | HO.ANESPROP2 ---
HPI - Anesthesia Eval Consult details Narrative: 73yo M for Colonoscopy Follows [facility] Cardiology. Last office visit 08/2023. Was having chest heaviness at that time, but recent loss of daughter. 11/2022 Nuc Stress was negative. T/C to patient 10/01/23: Reports chest heaviness has resolved. COUNT INCLUDES THE [facility] Active Problems Active Problems: All Active Problems (Updated 09/30/23 @ 14:43 by Jesi Mancera RN) Polyarthralgia (Acute) Varicose veins of right lower extremity with inflammation (Acute) History of right cataract surgery (Acute) LUCA (obstructive sleep apnea) (Acute) Obesity (BMI 30-39.9) (Acute) Lipoma of neck (Acute) Coronary artery disease (Acute) Chronic low back pain (Acute) Asthma (Acute) Hyperlipidemia (Acute) BPH (benign prostatic hyperplasia) (Acute) Allergic rhinitis (Acute) COPD (chronic obstructive pulmonary disease) (Acute) Past Medical History Medical History (Updated 09/30/23 @ 14:43 by Jesi Mancera RN) LUCA (obstructive sleep apnea) Obesity (BMI 30-39.9) Lipoma of neck Coronary artery disease Chronic low back pain Asthma Hyperlipidemia BPH (benign prostatic hyperplasia) Diabetes Personal history of COVID-19 Hypertension Allergic rhinitis COPD (chronic obstructive pulmonary disease) Family History Family History Mother No problems noted. Father No problems noted. 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) Alcohol intake: never Patient Tobacco Use Status: Never used Tobacco Use of substances other than those prescribed or required for medical reasons: No Advance Directives: No Advance Directives Information Provided: Yes Advance Directives Date on File: 05/14/20 service: No Meds Allergies Allergy/AdvReac Type Severity Reaction Status Date / Time Environmental Allergy Intermediate RUNNING Uncoded 04/05/23 11:16 NOSE, ITCHING SNEEZING Home Medications Medication Instructions Recorded Confirmed Last Taken Type atorvastatin 40 mg tablet 40 mg PO DAILY 10/24/20 09/30/23 Unknown History budesonide-formoterol HFA 160 2 puff inhalation BID 10/24/20 09/30/23 Unknown History mcg-4.5 mcg/actuation aerosol inhaler duloxetine 60 mg capsule,delayed 120 mg PO DAILY 10/24/20 09/30/23 Unknown History release fluticasone propionate 50 2 spray intranasal DAILY 10/24/20 09/30/23 Unknown History mcg/actuation nasal spray,suspension furosemide 40 mg tablet 40 mg PO DAILY 10/24/20 09/30/23 Unknown History gabapentin 100 mg capsule 100 mg PO DAILY PRN Pain 10/24/20 09/30/23 Unknown History isosorbide mononitrate 60 mg 60 mg PO DAILY 10/24/20 09/30/23 Unknown History tablet,extended release 24 hr levothyroxine 75 mcg tablet 75 mcg PO DAILY 10/24/20 09/30/23 Unknown History meclizine 25 mg tablet 25 mg PO TID PRN Vertigo 10/24/20 09/30/23 Unknown History montelukast 10 mg tablet 10 mg PO BEDTIME 10/24/20 09/30/23 Unknown History tamsulosin 0.4 mg capsule 0.4 mg PO BEDTIME 10/24/20 09/30/23 Unknown History temazepam 30 mg capsule 30 mg PO BEDTIME 10/24/20 09/30/23 Unknown History tiotropium bromide 18 mcg capsule 1 cap inhalation DAILY 10/24/20 09/30/23 Unknown History with inhalation device trazodone 150 mg tablet 150 mg PO BEDTIME PRN Insomnia 10/24/20 09/30/23 Unknown History aspirin 81 mg tablet,delayed 1 tab PO DAILY 05/19/21 09/30/23 Unknown History release hydralazine 100 mg tablet 100 mg PO TID 05/19/21 09/30/23 Unknown History metformin 500 mg tablet 1 tab PO TIDWMEAL 05/19/21 09/30/23 Unknown History omeprazole 40 mg capsule,delayed 1 cap PO DAILY 05/19/21 09/30/23 Unknown History release alcohol swabs pad topical 05/27/22 05/27/22 Unknown History clonidine HCl 0.2 mg tablet 0.2 mg PO BEDTIME 07/29/22 09/30/23 Unknown History metoprolol succinate 100 mg 100 mg PO DAILY 07/29/22 09/30/23 Unknown History tablet,extended release 24 hr quetiapine 100 mg tablet 200 mg PO BEDTIME 07/29/22 09/30/23 Unknown History acetaminophen 650 mg 650 mg PO TID 04/05/23 06/24/23 Unknown History tablet,extended release ascorbic acid (vitamin C) 250 mg 250 mg PO DAILY 04/05/23 09/30/23 Unknown History tablet (Vitamin C) bupropion HCl 300 mg 24 hr tablet, 300 mg PO DAILY 04/05/23 09/30/23 Unknown History extended release cetirizine 10 mg tablet 10 mg PO DAILY 04/05/23 09/30/23 Unknown History cholecalciferol (vitamin D3) 50 50 mcg PO DAILY 04/05/23 09/30/23 Unknown History mcg (2,000 unit) capsule docusate sodium 100 mg capsule 100 mg PO BID 04/05/23 09/30/23 Unknown History ufigeyjk-ced-ywgwi acid 0.4 1 tab PO DAILY 04/05/23 09/30/23 Unknown History mg-lycopene 300 mcg-lutein 250 mcg tablet (Cerovite Senior) polyethylene glycol 3350 17 17 g PO DAILY 04/05/23 06/24/23 Unknown History gram/dose oral powder albuterol sulfate 90 mcg/actuation 2 puff inhalation Q4-6H PRN 06/24/23 09/30/23 Unknown History aerosol inhaler (Ventolin HFA) Shortness Of Breath Or Wheezing tramadol 50 mg tablet 50 mg PO DAILY PRN pain 06/24/23 09/30/23 Unknown History triamcinolone acetonide 0.1 % 1 appl topical DAILY 06/24/23 Unknown History topical ointment Exam Height,Weight and Vital Signs: Height 5 ft 8.5 in Weight 103.419 kg Pertinent Lab Results Pertinent Lab Results: Laboratory Tests 05/20/23 10:50 WBC 5.3 Hgb 12.9 L Hct 38.4 L Plt Count 213 Sodium 141 Potassium 3.7 Chloride 103 Carbon Dioxide 30 H BUN 9 Creatinine 0.98 Narrative Narrative: Nuc Stress 11/2022 1. Nondiagnostic EGD d/t exggeration of baseline abnormalities with no symptoms concerning for angina at poor functional capacity of 3 METS, with chest pressure and with no ST-T changes from baseline suggestive of ischemia. 2. Mycardial perfusion imaging is normal with no evidence of fixed or reversible perfusion defects at poor functional capacity of 3 METS. 3. Nml wall thickening and motion. Nml LV function with a resting LVEF 55%, post stress ventricular EF 54% Assessment and Plan Assessment Anesthesia Assessment: Chart Reviewed Final Anesthetic Review Family History of Problems with Anesthesia: No History of Problems with Anesthesia: No
[2023-10-04 12:37] VITALS: BMI 31.5
[2023-10-04 12:42] VITALS: BP 199/109; PULSE 117; RESP 16; TEMP 36.2; O2SAT 97
[2023-10-04 13:06] LABS: Glucose, Whole Blood 194 mg/dL (60-115)
--- NOTE | 2023-10-04 13:30 | PC.NURSE ---
bp and heart rate elevated and anesthesia made aware. pt states hasn't taken any of his meds in a few days. bps running 200/122, 199/102, hr in 110-132. anesthesia postponed and dr langley at bedside also. made aware to not stop meds abruptly. also had fall 2 days ago after a dizzy spell. pt aware office will call to reschedule.
--- NOTE | 2023-10-04 13:43 | PC.NURSE ---
pt sent home and already has an md appointment for the follow up to his fall. [facility] office will call to reschedule
== END ==
PROVIDERS: PCP Family Medicine; Visit Provider Internal Medicine
DX: Z12.11 Encounter for screening for malignant neoplasm of colon (principal); Z53.09 Procedure and treatment not carried out because of other contraindication; R00.0 Tachycardia, unspecified; I10 Essential (primary) hypertension; E11.9 Type 2 diabetes mellitus without complications
CPT/HCPCS: 82947; J2704

== ENCOUNTER 2023-10-14 10:24 | Outpatient (REF) | payer OTHER, SELFPAY ==
[2023-10-16 23:04] LABS: TS Negative Control Passed; TS Panel A 11; TS Panel B 4; TS Positive Control Passed; TSpotTB Positive (Negative)
== END 2023-10-14 10:25 | disposition home or self-care (01) ==
LOC: HO.HHCL 10:24
PROVIDERS: Visit Provider Internal Medicine
DX: Z11.1 Encounter for screening for respiratory tuberculosis (principal); S13.9XXD Sprain of joints and ligaments of unspecified parts of neck, subsequent encounter
CPT/HCPCS: 36415; 86481

== ENCOUNTER 2023-10-19 12:02 | Outpatient (REF) | payer OTHER, SELFPAY ==
--- NOTE | ~2023-10-19 | XR_ITS ---
EXAMINATION: XR CHEST CLINICAL INFORMATION: Positive TB test COMPARISON: 02/18/2022 TECHNIQUE: 2 views of the chest were obtained. FINDINGS: No significant abnormality is noted involving the heart, lungs, mediastinum, bony thorax or soft tissues. Again noted are some chronic changes in the right ribs. XR/XR chest 2V IMPRESSION: Unremarkable examination.
== END 2023-10-19 12:03 | disposition home or self-care (01) ==
LOC: HO.HHCX 12:02
PROVIDERS: Visit Provider Internal Medicine
DX: R76.11 Nonspecific reaction to tuberculin skin test without active tuberculosis (principal)
CPT/HCPCS: 71046

== ENCOUNTER 2023-11-16 12:17 | Inpatient (IN) | payer OTHER, SELFPAY ==
--- NOTE | ~2023-11-16 | CT_ITS ---
EXAMINATION: CT ABDOMEN AND PELVIS WITH CONTRAST CLINICAL INFORMATION: Urinary retention. Passing clots, new mass COMPARISON: Portions of a previous CT 03/19/21 TECHNIQUE: Multidetector volumetric images were obtained from the superior aspect of the liver through the pubic symphysis following administration 85 mL of Omnipaque 350 intravenous contrast. Sagittal and coronal reformatted images were obtained on the technologist's workstation. Oral contrast: No This CT examination was performed using dose optimization techniques as appropriate, variously including the following: *Automated exposure control *Adjustment of mA and/or kV according to patient size (this includes techniques or standardized protocols for targeted exams where dose is matched to indication/reason for exam; i.e. extremities or head) *Use of iterative reconstruction technique DLP: 653 mGy-cm FINDINGS: LUNG BASES: There is hypoinflation. LIVER, GALLBLADDER, AND BILIARY TREE: No suspicious focal liver lesion. There are surgical clips in the expected region of the gallbladder. PANCREAS: No suspicious mass. SPLEEN: Within normal limits ADRENAL GLANDS: There is a round low attenuating right adrenal mass which is unchanged since at least 03/19/19. This does not require any specific imaging follow-up. KIDNEYS AND URETERS: The kidney contours are irregular. There is cortical loss on the right. There is dilation of the intrarenal collecting system and ureter on both sides to the level of the bladder. There is perinephric and periureteric fat stranding. There is a punctate calcification in the lower pole of the right kidney. There are bilateral cysts. There is no suspicious renal mass. BLADDER: The bladder is markedly distended and extends above the umbilicus. The bladder wall is thickened. There is surrounding fat stranding. The prostate is markedly enlarged and indents the bladder. There is at least some mild irregularity near the junction of the right side of the trigone with the median lobe of the prostate. GASTROINTESTINAL TRACT: There is some sigmoid wall thickening. There are some colonic diverticula. There is no CT evidence of acute appendicitis. The stomach is not well distended. There is no evidence of high-grade small bowel obstruction. ABDOMINAL WALL: There is a metallic density in the right upper abdominal wall near the midline. LYMPH NODES: There are no measurably enlarged abdominal or pelvic lymph nodes. There may be a trace amount of fluid around the lower edge of the liver. VASCULAR: There is no abdominal aortic aneurysm. The portal vein enhances. PELVIC VISCERA: The prostate is markedly enlarged and heterogeneous. The prostate indents the bladder. OSSEOUS STRUCTURES: There is degenerative change in the spine. This may account for a tiny droplet of gas at the L4/L5 level. The finding is nonspecific. CT/CT abdomen pelvis w IV con IMPRESSION: Markedly distended urinary bladder with markedly enlarged prostate. The prostate indents the bladder and there is some irregular density at the junction of the right bladder trigone with the prostate. There is dilation of the intrarenal collecting system and ureter on both sides. There are areas of cortical scarring in the right kidney. Cystitis and or urinary obstruction such as bladder outlet obstruction are likely. This study does not exclude bladder masses. Fleischner guidelines were followed.
--- NOTE | ~2023-11-16 | CT_ITS ---
EXAMINATION: CT ABDOMEN AND PELVIS WITHOUT CONTRAST CLINICAL INFORMATION: Pain. Recent Quintanilla catheter placement. COMPARISON: 11/16/2023 TECHNIQUE: Multidetector volumetric imaging was performed from the superior aspect of the liver through the pubic symphysis. Sagittal and coronal reformatted images were obtained on the technologist's workstation. This CT examination was performed using dose optimization techniques as appropriate, variously including the following: *Automated exposure control *Adjustment of mA and/or kV according to patient size (this includes techniques or standardized protocols for targeted exams where dose is matched to indication/reason for exam; i.e. extremities or head) *Use of iterative reconstruction technique DLP: 742 mGy-cm FINDINGS: LUNG BASES: There is scarring at the right lung base. LIVER, GALLBLADDER, AND BILIARY TREE: The liver is normal in size, shape, and attenuation. No focal hepatic lesion or biliary ductal dilatation is present. There has been a prior cholecystectomy. PANCREAS: Unremarkable. SPLEEN: Unremarkable. ADRENAL GLANDS: There is a stable low-density right adrenal lesion. KIDNEYS AND URETERS: The kidneys are again seen to be irregular in contour. Bilateral renal collecting system and ureteral prominence are again seen extending into the urinary bladder. BLADDER: A Quintanilla catheter extends into the urinary bladder. There is heterogeneous dense material within the urinary bladder intermixed with some air lucencies. The urinary bladder is distended. GASTROINTESTINAL TRACT: There are diverticula of the descending colon without diverticulitis. There is no evidence for appendicitis. ABDOMINAL WALL: No significant hernia is appreciated. LYMPH NODES: Normal. VASCULAR: There is atherosclerotic plaque of the abdominal aorta and proximal branches. PELVIC VISCERA: Significant prostate gland hypertrophy is again seen. OSSEOUS STRUCTURES: Unremarkable. CT/CT abdomen pelvis wo IV con IMPRESSION: 1. Quintanilla catheter extends into the urinary bladder. The urinary bladder is distended. There is heterogeneous dense material intermixed with some air lucencies within the urinary bladder which may represent blood products. 2. There is bilateral renal collecting system and ureteral prominence extending into the urinary bladder. 3. Significant prostate gland hypertrophy. 4. Diverticulosis of the descending colon without diverticulitis. 5. Stable low-density right adrenal lesion. Fleischner guidelines were followed.
--- NOTE | 2023-11-16 12:26 | ED_ITS ---
HPI - General Adult General Chief complaint: Urogenital-Male Stated complaint: URINE RETENT W/ABD PAIN PER EMS Time Seen by Provider: 11/16/23 12:24 Source: patient Limitations: language barrier (Utilize underwriting specialist services) History of Present Illness HPI narrative: 73-year-old male with history of BPH, prior urinary retention, chronic pain, asthma/COPD, coronary artery disease presents with urinary retention. Patient states he last voided at midnight, and has not been able to void since he woke this morning. Associated abdominal discomfort. Denies nausea, vomiting, fever. Related Data Home Medications ?Medication ?Instructions ?Recorded ?Confirmed atorvastatin 40 mg tablet 40 mg PO DAILY 10/24/20 09/30/23 budesonide-formoterol HFA 160 2 puff inhalation BID 10/24/20 09/30/23 mcg-4.5 mcg/actuation aerosol inhaler duloxetine 60 mg capsule,delayed 120 mg PO DAILY 10/24/20 09/30/23 release fluticasone propionate 50 2 spray intranasal DAILY 10/24/20 09/30/23 mcg/actuation nasal spray,suspension furosemide 40 mg tablet 40 mg PO DAILY 10/24/20 09/30/23 gabapentin 100 mg capsule 100 mg PO DAILY PRN Pain 10/24/20 09/30/23 isosorbide mononitrate 60 mg 60 mg PO DAILY 10/24/20 09/30/23 tablet,extended release 24 hr levothyroxine 75 mcg tablet 75 mcg PO DAILY 10/24/20 09/30/23 meclizine 25 mg tablet 25 mg PO TID PRN Vertigo 10/24/20 09/30/23 montelukast 10 mg tablet 10 mg PO BEDTIME 10/24/20 09/30/23 tamsulosin 0.4 mg capsule 0.4 mg PO BEDTIME 10/24/20 09/30/23 temazepam 30 mg capsule 30 mg PO BEDTIME 10/24/20 09/30/23 tiotropium bromide 18 mcg capsule 1 cap inhalation DAILY 10/24/20 09/30/23 with inhalation device trazodone 150 mg tablet 150 mg PO BEDTIME PRN Insomnia 10/24/20 09/30/23 aspirin 81 mg tablet,delayed 1 tab PO DAILY 05/19/21 09/30/23 release hydralazine 100 mg tablet 100 mg PO TID 05/19/21 09/30/23 metformin 500 mg tablet 1 tab PO TIDWMEAL 05/19/21 09/30/23 omeprazole 40 mg capsule,delayed 1 cap PO DAILY 05/19/21 09/30/23 release clonidine HCl 0.2 mg tablet 0.2 mg PO BEDTIME 07/29/22 09/30/23 metoprolol succinate 100 mg 100 mg PO DAILY 07/29/22 09/30/23 tablet,extended release 24 hr quetiapine 100 mg tablet 100 mg PO BEDTIME 07/29/22 10/04/23 acetaminophen 650 mg 650 mg PO TID 04/05/23 06/24/23 tablet,extended release ascorbic acid (vitamin C) 250 mg 250 mg PO DAILY 04/05/23 09/30/23 tablet (Vitamin C) bupropion HCl 300 mg 24 hr tablet, 300 mg PO DAILY 04/05/23 09/30/23 extended release cetirizine 10 mg tablet 10 mg PO DAILY 04/05/23 09/30/23 cholecalciferol (vitamin D3) 50 50 mcg PO DAILY 04/05/23 09/30/23 mcg (2,000 unit) capsule docusate sodium 100 mg capsule 100 mg PO BID 04/05/23 09/30/23 clgoapbv-tyh-fhgoh acid 0.4 1 tab PO DAILY 04/05/23 09/30/23 mg-lycopene 300 mcg-lutein 250 mcg tablet (Cerovite Senior) albuterol sulfate 90 mcg/actuation 2 puff inhalation Q4-6H PRN 06/24/23 09/30/23 aerosol inhaler (Ventolin HFA) Shortness Of Breath Or Wheezing tramadol 50 mg tablet 50 mg PO DAILY PRN pain 06/24/23 09/30/23 triamcinolone acetonide 0.1 % 1 appl topical DAILY 06/24/23 topical ointment Allergies Allergy/AdvReac Type Severity Reaction Status Date / Time No Known Allergies Allergy Verified 11/16/23 12:29 Review of Systems 2 Review of Systems: Yes all other systems are reviewed and are negative [facility] Past Medical History Medical History LUCA (obstructive sleep apnea) Obesity (BMI 30-39.9) Lipoma of neck Coronary artery disease Chronic low back pain Asthma Hyperlipidemia BPH (benign prostatic hyperplasia) Diabetes Personal history of COVID-19 Hypertension Allergic rhinitis COPD (chronic obstructive pulmonary disease) Surgical History History of surgery of head Hx of shoulder surgery Hx of umbilical hernia repair History of surgery Hx of bilateral cataract extraction Hx of cardiac catheterization Hx of circumcision History of esophagogastroduodenoscopy (EGD) H/O colonoscopy Family History Family History Mother No problems noted. Father No problems noted. 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) Alcohol intake: never Patient Tobacco Use Status: Never used Tobacco Advance Directives: Yes Advance Directives on File: Yes Advance Directives Date on File: 05/14/20 Do you have a plan to hurt others: No Plan service: No Physical Exam ED Vital Signs: Vital Signs - 24 hr 11/16/23 12:27 11/16/23 13:44 11/16/23 18:21 Temperature 97.5 F Pulse Rate 91 89 88 Respiratory Rate 18 19 18 Blood Pressure 230/119 H 192/96 H 210/118 H Pulse Oximetry 97 94 93 Oxygen Delivery Method Room Air Room Air Room Air 11/16/23 19:14 Temperature Pulse Rate 89 Respiratory Rate 16 Blood Pressure 161/89 H Pulse Oximetry Oxygen Delivery Method BMI result Body Mass Index 31.8 Const Other: Alert well in appearance Orientation/consciousness: patient oriented x3 Resp Other: Nonlabored respiration Cardio Other: Normal peripheral perfusion GI Other: Abdomen is soft, obese, somewhat distended, minimal discomfort in suprapubic region without guarding Neuro General: patient oriented x3, no focal motor deficits and CN's II-XI intact bilaterally Extrem Other: Strength 5/5 bilateral upper and lower extremities Psych Other: Calm cooperative Course Reevaluation(s) Reevaluation #1: Patient seen by Dr. Boucher in the ED who was able to place an indwelling catheter via cysto. Large volume of bloody urine drained. Discussed case with Dr. Bui who accepts patient for admission to medicine. Time: 20:15 Consultations Consultation #1: Dr. Boucher urology Time: 15:43 Medications Administered Discontinued Medications Generic Name Dose Route Start Last Admin Trade Name Lawrenceq PRN Reason Stop Dose Admin Ceftriaxone Sodium 1 gm/ 50 mls @ 100 mls/hr 11/16/23 19:40 11/16/23 19:52 Sodium Chloride IV 11/16/23 20:09 100 mls/hr ONCE ONE Administration Iohexol 85 ml 11/16/23 16:49 11/16/23 16:49 Iohexol 350 Mg/Ml 100 Ml Infus..Btl IV 11/16/23 16:50 85 ml ONCE ONE Administration Lidocaine HCl 10 ml 11/16/23 14:25 11/16/23 14:55 Lidocaine Hcl 2 % Urojet 10 Ml Jel.Pf.Arpan TOPICAL 11/16/23 14:26 10 ml ONCE ONE Administration Lidocaine HCl 10 ml 11/16/23 14:26 11/16/23 14:55 Lidocaine Hcl 2 % Urojet 10 Ml Jel.Pf.Arpan TOPICAL 11/16/23 14:27 10 ml ONCE ONE Administration Lidocaine HCl 20 ml 11/16/23 18:03 11/16/23 18:17 Lidocaine Hcl 2 % Urojet 10 Ml Jel.Pf.Arpan TOPICAL 11/16/23 18:04 20 ml ONCE ONE Administration Lidocaine HCl 20 ml 11/16/23 19:40 11/16/23 19:52 Lidocaine Hcl 2 % Urojet 10 Ml Jel.Pf.Arpan TOPICAL 11/16/23 19:41 20 ml ONCE ONE Administration Morphine Sulfate 4 mg 11/16/23 12:39 11/16/23 12:51 Morphine Sulfate 4 Mg/Ml Cartridge IVPUSH 11/16/23 12:40 4 mg ONCE ONE Administration Protocol Morphine Sulfate 4 mg 11/16/23 14:24 11/16/23 14:56 Morphine Sulfate 4 Mg/Ml Cartridge IVPUSH 11/16/23 14:25 4 mg ONCE ONE Administration Protocol Morphine Sulfate 4 mg 11/16/23 18:14 11/16/23 18:18 Morphine Sulfate 4 Mg/Ml Cartridge IVPUSH 11/16/23 18:15 4 mg ONCE ONE Administration Protocol Medical Decision Making Medical Decision Making MDM Narrative: 73-year-old male with history of BPH, prior urinary retention, chronic pain, asthma/COPD, coronary artery disease presents with urinary retention. Patient states he last voided at midnight, and has not been able to void since he woke this morning. Associated abdominal discomfort. Denies nausea, vomiting, fever. Problem: BPH, prior retention History: Per patient I have considered the following differential diagnoses: Obstructive uropathy, urinary retention, bladder mass/clot burden Plan: Screening labs have been completed, we still need to collect urinalysis. Quintanilla catheter will be placed. Nursing did bedside bladder scan, the volume was approximately 600 mL. If the Quintanilla is readily place and the patient has no lab abnormalities, he can be discharged with a Quintanilla in place And follow-up with urology. I have independently reviewed the following tests: Labs: CT abdomen and pelvis: Pending at the time of sign-out Nursing staff has attempted to place both a 14 and a 16 [place] Quintanilla, attempts unsuccessful. Viscous lidocaine was utilized as well, prior to trying to place a three-way for CBI given the nurse did visualize clot while try to place the catheter. I in turn performed a bedside ultrasound, the bladder volume was approximately 700 mL, I can visualize either clot burden versus a mass. Placed an order for a CT scan, and paged uology Admission/Observation The patient will likely require admission, the CT scan is pending at the time of sign-out, I did place a consult to Urology, I have yet to hear back, we will relate to the oncoming provider Lab Data 11/16/23 12:48 11/16/23 12:48 Labs: Lab Results 11/16/23 11/16/23 Range/Units 12:48 19:31 WBC 5.2 (4.8-10.8) X10*3/uL RBC 4.52 L (4.60-5.80) X10*6/uL Hgb 13.3 L (14.0-18.0) g/dl Hct 39.3 L (42.0-52.0) % MCV 86.9 (80.0-98.0) fL MCH 29.4 (27.0-33.0) pg MCHC 33.8 (31.0-36.0) g/dl RDW 13.9 (11.0-16.0) % Plt Count 183 (160-400) X10*3/uL MPV 9.0 L (9.4-12.4) fL Immature Gran % (Auto) 1.7 H (0.0-0.4) % Neut % (Auto) 65.9 (45-73) % Lymph % (Auto) 17.7 L (20-40) % [place] % (Auto) 11.6 H (2-11) % Eos % (Auto) 2.5 (0-4) % Baso % (Auto) 0.6 (0-2) % Lymph # (Auto) 0.9 L (1.2-4.9) X10*3/uL [place] # (Auto) 0.6 (0.1-1.2) X10*3/uL Eos # (Auto) 0.1 (0.0-0.4) X10*3/uL Baso # (Auto) 0.0 (0.0-0.2) X10*3/uL Abs Immat Gran (auto) 0.09 H (0.00-0.03) X10*3/uL Absolute Neuts (auto) 3.5 (2.0-8.3) x10*3/uL Absolute Nucleated RBC 0.000 (0.0-0.012) X10*3/uL Nucleated RBC % (auto) 0.0 (0.0-0.2) /100WBC Sodium 140 (135-145) mmol/L Potassium 3.6 (3.3-5.1) mmol/L Chloride 102 (96-108) mmol/L Carbon Dioxide 29 (22-29) mmol/L Anion Gap 13 (12-20) BUN 11 (9-16) mg/dL Creatinine 1.09 (0.5-1.4) mg/dL Estim Creat Clear Calc 71.7 Estimated GFR > 60 Random Glucose 277 H (60-115) mg/dL Calcium 10.3 H (8.4-10.2) mg/dL Magnesium 2.1 (1.6-2.6) mg/dL Total Bilirubin 0.5 (0.0-1.0) mg/dL AST 24 (5-37) U/L ALT 27 (0-40) U/L Alkaline Phosphatase 69 (39-117) U/L Total Protein 7.1 (6.5-8.0) g/dL Albumin 4.1 (3.5-5.0) g/dL Urine Color Red A Urine Appearance Cloudy Urine pH 6.5 (5.0-9.0) Ur Specific [place] 1.020 (1.005-1.025) Urine Protein 100 (2+) H (Neg-Trace) mg/dL Urine Glucose (UA) 100 H (Negative) mg/dL Urine Ketones Negative (Negative) mg/dL Urine Blood Large (3+) H (Negative) Urine Nitrite Negative (Negative) Ur Leukocyte Esterase Small (1+) H (Negative) Urine RBC >20 H (0-2) /HPF Urine WBC 6-10 H (0-5) /HPF Ur Squamous Epith Cells 0-2 (0-2) /HPF Urine Bacteria None Seen (None Seen) Hyaline Casts 0-2 (0-2) /LPF Discharge Plan Discharge Patient Disposition: Admitted As Inpatient Prescriptions: No Action albuterol sulfate [Ventolin HFA] 90 mcg/actuation Hfa Aerosol Inhaler 2 puff INHALATION Q4-6H PRN (Reason: Shortness Of Breath Or Wheezing) triamcinolone acetonide 0.1 % ointment 1 appl topical DAILY tramadol 50 mg tablet 50 mg PO DAILY PRN (Reason: pain) metformin 500 mg tablet 1 tab PO TIDWMEAL omeprazole 40 mg capsule,delayed release(DR/EC) 1 cap PO DAILY aspirin 81 mg tablet,delayed release (DR/EC) 1 tab PO DAILY hydralazine 100 mg tablet 100 mg PO TID atorvastatin 40 mg tablet 40 mg PO DAILY budesonide-formoterol 160-4.5 mcg/actuation HFA aerosol inhaler 2 puff inhalation BID duloxetine 60 mg capsule,delayed release(DR/EC) 120 mg PO DAILY fluticasone propionate 50 mcg/actuation spray,suspension 2 spray intranasal DAILY furosemide 40 mg tablet 40 mg PO DAILY gabapentin 100 mg capsule 100 mg PO DAILY PRN (Reason: Pain) isosorbide mononitrate 60 mg tablet extended release 24 hr 60 mg PO DAILY levothyroxine 75 mcg tablet 75 mcg PO DAILY meclizine 25 mg tablet 25 mg PO TID PRN (Reason: Vertigo) montelukast 10 mg tablet 10 mg PO BEDTIME tamsulosin 0.4 mg capsule 0.4 mg PO BEDTIME temazepam 30 mg capsule 30 mg PO BEDTIME tiotropium bromide 18 mcg capsule, w/inhalation device 1 cap inhalation DAILY trazodone 150 mg tablet 150 mg PO BEDTIME PRN (Reason: Insomnia) metoprolol succinate 100 mg tablet extended release 24 hr 100 mg PO DAILY quetiapine 100 mg tablet 100 mg PO BEDTIME clonidine HCl 0.2 mg tablet 0.2 mg PO BEDTIME cetirizine 10 mg tablet 10 mg PO DAILY acetaminophen 650 mg tablet extended release 650 mg PO TID ascorbic acid (vitamin C) [Vitamin C] 250 mg tablet 250 mg PO DAILY docusate sodium 100 mg capsule 100 mg PO BID bupropion HCl 300 mg tablet extended release 24 hr 300 mg PO DAILY Cerovite Senior 0.4 mg-300 mcg- 250 mcg tablet 1 tab PO DAILY cholecalciferol (vitamin D3) 50 mcg (2,000 unit) capsule 50 mcg PO DAILY Print Language: Setswana
[2023-11-16 12:27] VITALS: BP 230/119; PULSE 91; RESP 18; TEMP 36.4; O2SAT 97; BMI 31.8
[2023-11-16] MEDS: Morphine Sulfate 4 MG/ML CARTRIDGE IVPUSH ×3 (12:51→18:18)
[2023-11-16 12:54] LABS: Basophils Percent Auto 0.6 % (0-2); Eosinophils Absolute Auto 0.1 X10*3/uL (0.0-0.4); Eosinophils Percent Auto 2.5 % (0-4); Hematocrit 39.3 % (42.0-52.0); Hemoglobin 13.3 g/dl (14.0-18.0); Imm Gran Abs Auto 0.09 X10*3/uL (0.00-0.03); Imm Gran Pct Auto 1.7 % (0.0-0.4); Lymphocytes Absolute Auto 0.9 X10*3/uL (1.2-4.9); Lymphocytes Percent Auto 17.7 % (20-40); MANUAL DIFF FLAG NO; Mean Corpuscular HGB Conc 33.8 g/dl (31.0-36.0); Mean Corpuscular Hemoglobin 29.4 pg (27.0-33.0); Mean Corpuscular Volume 86.9 fL (80.0-98.0); Monocytes Absolute Auto 0.6 X10*3/uL (0.1-1.2); Monocytes Percent Auto 11.6 % (2-11); Neutrophils Absolute Auto 3.5 x10*3/uL (2.0-8.3); Neutrophils Percent Auto 65.9 % (45-73); Platelet Count 183 X10*3/uL (160-400); Red Blood Count 4.52 X10*6/uL (4.60-5.80); Red Cell Distribution Width 13.9 % (11.0-16.0); White Blood Count 5.2 X10*3/uL (4.8-10.8)
[2023-11-16 13:10] LABS: Alanine Aminotransferase 27 U/L (0-40); Albumin Level 4.1 g/dL (3.5-5.0); Alkaline Phosphatase 69 U/L (39-117); Anion Gap 13 (12-20); Aspartate Amino Transferase 24 U/L (5-37); Bilirubin Total 0.5 mg/dL (0.0-1.0); Blood Urea Nitrogen 11 mg/dL (9-16); Calcium 10.3 mg/dL (8.4-10.2); Carbon Dioxide 29 mmol/L (22-29); Chloride 102 mmol/L (96-108); Creatinine Clr Calc Pharmacy 71.7; Estimated Glomerular Filt Rate > 60; Glucose Random 277 mg/dL (60-115); Magnesium 2.1 mg/dL (1.6-2.6); Potassium 3.6 mmol/L (3.3-5.1); Sodium 140 mmol/L (135-145); Total Protein 7.1 g/dL (6.5-8.0)
--- NOTE | 2023-11-16 13:22 | PC.NURSE ---
attempted x2 for nathan catheter. unsuccessful. patient with clots of blood coming from penis after attempts. IV established, medicated per the MAR
[2023-11-16 13:44] VITALS: BP 192/96; PULSE 89; RESP 19; O2SAT 94
[2023-11-16] MEDS: Lidocaine HCl 2 % Urojet 10 ML JEL.PF.APP TOPICAL ×2 (14:55)
--- NOTE | 2023-11-16 15:14 | PC.NURSE ---
attempted to insert 3 way catheter unsuccessfully. patient medicated per the MAR.
[2023-11-16] MEDS: iohexoL 350 MG/ML 100 ML INFUS..BTL 85 ML IV (16:49)
--- NOTE | 2023-11-16 17:21 | PC.NURSE ---
second bladder scan obtained w/ retaining >[address] scan results, urology consulted.
[2023-11-16] MEDS: Lidocaine HCl 2 % Urojet 10 ML JEL.PF.APP 20 ML TOPICAL ×2 (18:17→19:52)
[2023-11-16 18:21] VITALS: BP 210/118; PULSE 88; RESP 18; O2SAT 93
--- NOTE | 2023-11-16 18:21 | PC.NURSE ---
medicated per the MAR for pain, urology in department to attempt nathan
--- NOTE | 2023-11-16 19:11 | PC.NURSE ---
urologist at bedside with verbal order for 1 gram ceftriaxone iv. verbal order for 2 urojets. able to obtain nathan catheter at this time. states if it seems there are clots to manually irrigate the nathan. patient tolerated procedure fairly well. urine appears bloody at this time which urologist says is to be expected. patient appears more comfortable at this time and reports improvement in pain.
[2023-11-16 19:14] VITALS: BP 161/89; PULSE 89; RESP 16
--- NOTE | 2023-11-16 19:14 | P.CNUR_ITS ---
History of Present Illness Consult details Consult date: 11/16/23 Narrative: Emory is a 73-year-old male with history of BPH. He presented with abdominal pain and complaints of being unable to urinate for several hours. Multiple attempted catheterization by ER staff was not successful. I initially tried an 18 Ukrainian coude with stylet after local 2% lidocaine jelly. This was not successful. Ceftriaxone 1 g was given prior to instrumentation. Flexible cystoscope was used for guidance an 18 Ukrainian [place] tip catheter was passed over guidewire. Visualization of the bladder noted cloudy urine and blood clots. Initial urine return was rc and at the termination of bladder emptying there was gross hematuria. The bladder was irrigated for minimal clot return. CTAP: Bilateral dilatation of ureters down to a distended bladder. Review of Systems 2 Review of Systems: Yes all other systems are reviewed and are negative Constitutional: Constitutional: Reports no additional constitutional complaints Eyes: Eyes: Reports no additional eye complaints ENT: Reports system reviewed and no additional complaints, except as documented Cardiovascular: Cardiovascular: Reports no additional cardiovascular complaints Respiratory: Respiratory: Reports no additional respiratory complaints Gastrointestinal: Gastrointestinal: Reports no additional gastrointestinal complaints Genitourinary: Genitourinary: Reports as per HPI Musculoskeletal: Musculoskeletal: Reports no additional musculoskeletal complaints Integumentary/Breasts: Skin/Breast: Reports system reviewed and no additional complaints, except as docu Neurologic: Reports system reviewed and no additional complaints, except as documented Psychiatric: Psychiatric: Reports no additional psychiatric complaints Endocrine: Endocrine: Reports no additional endocrine complaints Hematologic/Lymphatic: Hematologic/Lymphatic: Reports no additional hematologic/lymphatic complaints Allergic/Immunologic: Allergic/Immunologic: Reports no additional allergic/immunologic complaints [facility] Past Medical History Medical History LUCA (obstructive sleep apnea) Obesity (BMI 30-39.9) Lipoma of neck Coronary artery disease Chronic low back pain Asthma Hyperlipidemia BPH (benign prostatic hyperplasia) Diabetes Personal history of COVID-19 Hypertension Allergic rhinitis COPD (chronic obstructive pulmonary disease) Family History Family History Mother No problems noted. Father No problems noted. Surgical History Surgical History History of surgery of head Hx of shoulder surgery Hx of umbilical hernia repair History of surgery Hx of bilateral cataract extraction Hx of cardiac catheterization Hx of circumcision History of esophagogastroduodenoscopy (EGD) H/O colonoscopy Social History Social History Household Members: None Housing: Apartment Are you a primary client care representative to a significant other at home: No Do you presently have visiting nurse or other home services: Yes ([employer] TE[employer]) Alcohol intake: never Patient Tobacco Use Status: Never used Tobacco Advance Directives: Yes Advance Directives on File: Yes Advance Directives Date on File: 05/14/20 Do you have a plan to hurt others: No Plan service: No Meds Allergies Allergy/AdvReac Type Severity Reaction Status Date / Time No Known Allergies Allergy Verified 11/16/23 12:29 Home Medications ?Medication ?Instructions ?Recorded ?Confirmed ?Last Taken ?Type atorvastatin 40 mg tablet 40 mg PO DAILY 10/24/20 09/30/23 Unknown History budesonide-formoterol HFA 160 2 puff inhalation BID 10/24/20 09/30/23 Unknown History mcg-4.5 mcg/actuation aerosol inhaler duloxetine 60 mg capsule,delayed 120 mg PO DAILY 10/24/20 09/30/23 Unknown History release fluticasone propionate 50 2 spray intranasal DAILY 10/24/20 09/30/23 Unknown History mcg/actuation nasal spray,suspension furosemide 40 mg tablet 40 mg PO DAILY 10/24/20 09/30/23 Unknown History gabapentin 100 mg capsule 100 mg PO DAILY PRN Pain 10/24/20 09/30/23 Unknown History isosorbide mononitrate 60 mg 60 mg PO DAILY 10/24/20 09/30/23 Unknown History tablet,extended release 24 hr levothyroxine 75 mcg tablet 75 mcg PO DAILY 10/24/20 09/30/23 Unknown History meclizine 25 mg tablet 25 mg PO TID PRN Vertigo 10/24/20 09/30/23 Unknown History montelukast 10 mg tablet 10 mg PO BEDTIME 10/24/20 09/30/23 Unknown History tamsulosin 0.4 mg capsule 0.4 mg PO BEDTIME 10/24/20 09/30/23 Unknown History temazepam 30 mg capsule 30 mg PO BEDTIME 10/24/20 09/30/23 Unknown History tiotropium bromide 18 mcg capsule 1 cap inhalation DAILY 10/24/20 09/30/23 Unknown History with inhalation device trazodone 150 mg tablet 150 mg PO BEDTIME PRN Insomnia 10/24/20 09/30/23 Unknown History aspirin 81 mg tablet,delayed 1 tab PO DAILY 05/19/21 09/30/23 Unknown History release hydralazine 100 mg tablet 100 mg PO TID 05/19/21 09/30/23 Unknown History metformin 500 mg tablet 1 tab PO TIDWMEAL 05/19/21 09/30/23 Unknown History omeprazole 40 mg capsule,delayed 1 cap PO DAILY 05/19/21 09/30/23 Unknown History release clonidine HCl 0.2 mg tablet 0.2 mg PO BEDTIME 07/29/22 09/30/23 Unknown History metoprolol succinate 100 mg 100 mg PO DAILY 07/29/22 09/30/23 Unknown History tablet,extended release 24 hr quetiapine 100 mg tablet 100 mg PO BEDTIME 07/29/22 10/04/23 Unknown History acetaminophen 650 mg 650 mg PO TID 04/05/23 06/24/23 Unknown History tablet,extended release ascorbic acid (vitamin C) 250 mg 250 mg PO DAILY 04/05/23 09/30/23 Unknown History tablet (Vitamin C) bupropion HCl 300 mg 24 hr tablet, 300 mg PO DAILY 04/05/23 09/30/23 Unknown History extended release cetirizine 10 mg tablet 10 mg PO DAILY 04/05/23 09/30/23 Unknown History cholecalciferol (vitamin D3) 50 50 mcg PO DAILY 04/05/23 09/30/23 Unknown History mcg (2,000 unit) capsule docusate sodium 100 mg capsule 100 mg PO BID 04/05/23 09/30/23 Unknown History joequvwe-szr-doboo acid 0.4 1 tab PO DAILY 04/05/23 09/30/23 Unknown History mg-lycopene 300 mcg-lutein 250 mcg tablet (Cerovite Senior) albuterol sulfate 90 mcg/actuation 2 puff inhalation Q4-6H PRN 06/24/23 09/30/23 Unknown History aerosol inhaler (Ventolin HFA) Shortness Of Breath Or Wheezing tramadol 50 mg tablet 50 mg PO DAILY PRN pain 06/24/23 09/30/23 Unknown History triamcinolone acetonide 0.1 % 1 appl topical DAILY 06/24/23 Unknown History topical ointment Physical Exam 2 Vital Signs: Vital Signs: Last Vital Signs Temp 97.5 F 11/16/23 12:27 Pulse 88 11/16/23 18:21 Resp 18 11/16/23 18:21 BP 210/118 H 11/16/23 18:21 Pulse Ox 93 11/16/23 18:21 O2 Del Method Room Air 11/16/23 18:21 BMI result Body Mass Index 31.8 Const: General: no acute distress and well developed Nutritional Appearance: obese Orientation/consciousness: patient oriented x3 HEENT: Head: Yes normocephalic and Yes atraumatic Eyes: Conjunctivae: conjunctivae normal Neck: Neck: Yes normal visual inspection Chest: Chest palpation & inspection: normal inspection of the chest Resp: Effort & Inspection: normal respiratory effort Cardio: Rate: regular rate GI: Inspection: Yes normal to inspection Palpation (GI): Soft to palpation : Penis: normal penis Scrotum: scrotum normal Skin: General skin exam: no rashes or lesions noted Neuro: General: patient oriented x3 Extrem: General: No pedal edema Psych: Appearance: grossly normal Affect: normal affect Results Labs 11/16/23 12:48 11/16/23 12:48 Labs: Abnormal lab results 11/16/23 Range/Units 12:48 RBC 4.52 L (4.60-5.80) X10*6/uL Hgb 13.3 L (14.0-18.0) g/dl Hct 39.3 L (42.0-52.0) % MPV 9.0 L (9.4-12.4) fL Immature Gran % (Auto) 1.7 H (0.0-0.4) % Lymph % (Auto) 17.7 L (20-40) % [place] % (Auto) 11.6 H (2-11) % Lymph # (Auto) 0.9 L (1.2-4.9) X10*3/uL Abs Immat Gran (auto) 0.09 H (0.00-0.03) X10*3/uL Random Glucose 277 H (60-115) mg/dL Calcium 10.3 H (8.4-10.2) mg/dL Short CBC 11/16/23 Range/Units 12:48 WBC 5.2 (4.8-10.8) X10*3/uL Hgb 13.3 L (14.0-18.0) g/dl Hct 39.3 L (42.0-52.0) % Plt Count 183 (160-400) X10*3/uL BMP 11/16/23 12:48 Sodium 140 Potassium 3.6 Chloride 102 Carbon Dioxide 29 BUN 11 Creatinine 1.09 Calcium 10.3 H Liver Function 11/16/23 Range/Units 12:48 Total Bilirubin 0.5 (0.0-1.0) mg/dL AST 24 (5-37) U/L ALT 27 (0-40) U/L Alkaline Phosphatase 69 (39-117) U/L Albumin 4.1 (3.5-5.0) g/dL Imaging Abdomen CT scan report/results: report reviewed and image reviewed CT scan - pelvis: report reviewed and image reviewed Additional studies: Date of Service: 11/16/23 EXAMINATION: CT ABDOMEN AND PELVIS WITH CONTRAST CLINICAL INFORMATION: Urinary retention. Passing clots, new mass COMPARISON: Portions of a previous CT 03/19/21 TECHNIQUE: Multidetector volumetric images were obtained from the superior aspect of the liver through the pubic symphysis following administration 85 mL of Omnipaque 350 intravenous contrast. Sagittal and coronal reformatted images were obtained on the technologist's workstation. Oral contrast: No This CT examination was performed using dose optimization techniques as appropriate, variously including the following: *Automated exposure control *Adjustment of mA and/or kV according to patient size (this includes techniques or standardized protocols for targeted exams where dose is matched to indication/reason for exam; i.e. extremities or head) *Use of iterative reconstruction technique DLP: 653 mGy-cm FINDINGS: LUNG BASES: There is hypoinflation. LIVER, GALLBLADDER, AND BILIARY TREE: No suspicious focal liver lesion. There are surgical clips in the expected region of the gallbladder. PANCREAS: No suspicious mass. SPLEEN: Within normal limits ADRENAL GLANDS: There is a round low attenuating right adrenal mass which is unchanged since at least 03/19/19. This does not require any specific imaging follow-up. KIDNEYS AND URETERS: The kidney contours are irregular. There is cortical loss on the right. There is dilation of the intrarenal collecting system and ureter on both sides to the level of the bladder. There is perinephric and periureteric fat stranding. There is a punctate calcification in the lower pole of the right kidney. There are bilateral cysts. There is no suspicious renal mass. BLADDER: The bladder is markedly distended and extends above the umbilicus. The bladder wall is thickened. There is surrounding fat stranding. The prostate is markedly enlarged and indents the bladder. There is at least some mild irregularity near the junction of the right side of the trigone with the median lobe of the prostate. GASTROINTESTINAL TRACT: There is some sigmoid wall thickening. There are some colonic diverticula. There is no CT evidence of acute appendicitis. The stomach is not well distended. There is no evidence of high-grade small bowel obstruction. ABDOMINAL WALL: There is a metallic density in the right upper abdominal wall near the midline. LYMPH NODES: There are no measurably enlarged abdominal or pelvic lymph nodes. There may be a trace amount of fluid around the lower edge of the liver. VASCULAR: There is no abdominal aortic aneurysm. The portal vein enhances. PELVIC VISCERA: The prostate is markedly enlarged and heterogeneous. The prostate indents the bladder. OSSEOUS STRUCTURES: There is degenerative change in the spine. This may account for a tiny droplet of gas at the L4/L5 level. The finding is nonspecific. IMPRESSION: Markedly distended urinary bladder with markedly enlarged prostate. The prostate indents the bladder and there is some irregular density at the junction of the right bladder trigone with the prostate. There is dilation of the intrarenal collecting system and ureter on both sides. There are areas of cortical scarring in the right kidney. Cystitis and or urinary obstruction such as bladder outlet obstruction are likely. Assessment and Plan (1) BPH (benign prostatic hyperplasia): Status: Acute (2) Urinary retention: Status: Acute (3) UTI (urinary tract infection): Status: Acute (4) Gross hematuria: Status: Acute Plan Keep Quintanilla to gravity drainage Irrigate p.r.n. for clots Follow-up outpatient with Urology Antibiotic coverage await urine culture results Start Proscar 5 mg daily. Continue tamsulosin Procedures Date of Service Date of Service: 11/16/23 Catheter Insertion (Urinary) Date of insertion: 11/16/23 Replacement of catheter present on admission: No Reason for placing: Acute urinary retention Bladder scan/ultrasound used before catheterization: Yes Estimated amount of urine (mLs): 700 Antiseptic solution prep: Povidone-Iodine Topical anesthesia used: Yes Catheter type/location: 2-way Urethral Size (Ukrainian): 18 Catheter balloon size (mL): 10 Catheter balloon amount: 10 Results: unable to pass (18 fr coude), retried with different size/type catheter (Cystoscopic guidance 18 Ukrainian Ka[place] tip catheter) and consulted Procedure performed: without complications Comment: Quintanilla placement required flexible cystoscopic guidance Additional comments: Add CPT code cystoscopy [id number]
--- NOTE | 2023-11-16 19:28 | PC.NURSE ---
this rn assumed car of pt, pt noted to have nathan in place at this time. nathan draining dark red blood, 1000ml of urine emptied from nathan at this time, urine sample obtained and sent to lab.
[2023-11-16] MEDS: cefTRIAXone sodium 1 GM in 0.9 % Sodium Chloride 50 ML IV (19:52)
[2023-11-16 19:55] LABS: Appearance Urine Cloudy; Bacteria Urine None Seen (None Seen); Color Urine Red; Glucose Urine UA 100 mg/dL (Negative); Hyaline Casts Urine 0-2 /LPF (0-2); Leukocyte Esterase Urine Small (1+) (Negative); Nitrite Urine Negative (Negative); PH 6.5 (5.0-9.0); RBC Urine >20 /HPF (0-2); Squamous Epithelial Cell Urine 0-2 /HPF (0-2); UACC Culture Trigger YES; UMIC TRIGGER UACC YES; Urine Blood Large (3+) (Negative); Urine Ketones Negative (Negative); Urine Protein 100 (2+) mg/dL (Neg-Trace)
--- NOTE | 2023-11-16 20:38 | MHC.EDTECH ---
Per patient $2,000 velasco. Patient refused to have the velasco locked. Money inside his wallet in the belonging bag with clothes.
[2023-11-16] MEDS: HYDROmorphone HCl 1 MG/ML SYRINGE 0.8 MG IVPUSH (20:55)
[2023-11-16 20:56] VITALS: BP 136/85; PULSE 100; RESP 17; TEMP 37.1; O2SAT 98
[2023-11-16 20:56] LABS: Glucose, Whole Blood 186 mg/dL (60-115)
--- NOTE | 2023-11-16 20:57 | P.HPHOSP_ITS ---
History of Present Illness Date of Service: 11/16/23 Attending physician on admission: Sarah Bishop Chief Complaint: Unable to urinate Emory Cui is a 73 years old man with past medical history significant for BPH, prior urinary retention, type 2 diabetes mellitus on metformin, asthma, obesity, sleep apnea and depression presents to the emergency department complaining of inability to urinate since yesterday associated with abdominal pain. He denied nausea, vomiting or diarrhea. He did not report any headache, palpitations or dizziness hip. He does complain of shortness on breath and wheezing. Associated with chest tightness. He denied tobacco smoking, alcohol abuse or illicit drug use. In the ED, he was found to have stable vital signs. His blood pressure was markedly elevated before but normalized after an indwelling urinary catheter was placed by urologist. The workup showed hemoglobin of 13.3. There is no leukocytosis or thrombocytopenia. There are no electrolyte imbalances. Creatinine is 1.09 and BUN 11. LFTs are normal. Urinalysis showed hematuria, elevated leukocyte esterase and elevated WBC. Abdomen pelvis CT scan showed markedly urinary bladder with marked enlarged prostate and dilation of the intrarenal collecting system and ureter in both sides. ED tx: Morphine 12 mg IV (total), ceftriaxone 1 g IV Review of Systems 2 Review of Systems: All 12 systems were reviewed and normal except as noted in HPI. [facility] Medical History LUCA (obstructive sleep apnea) Obesity (BMI 30-39.9) Lipoma of neck Coronary artery disease Chronic low back pain Asthma Hyperlipidemia BPH (benign prostatic hyperplasia) Diabetes Personal history of COVID-19 Hypertension Allergic rhinitis COPD (chronic obstructive pulmonary disease) Family History Mother No problems noted. Father No problems noted. 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 DIRECTOR) Alcohol intake: never Patient Tobacco Use Status: Never used Tobacco Advance Directives: Yes Advance Directives on File: Yes Advance Directives Date on File: 05/14/20 Do you have a plan to hurt others: No Plan service: No Meds Allergies Allergy/AdvReac Type Severity Reaction Status Date / Time No Known Allergies Allergy Verified 11/16/23 12:29 Active Medications: Current Medications Acetaminophen (Acetaminophen 325 Mg Tablet) 975 mg PO Q6H PRN PRN Reason: mild pain, headache or fever Glucose (Glucose Gel 15 Gm Gel..Gram.) 15 gm PO Q15M PRN; Protocol PRN Reason: per Hypoglycemia Standing Ord. Hydromorphone HCl (Hydromorphone Hcl 1 Mg/Ml Syringe) 0.5 mg IVPUSH Q4H PRN; Protocol PRN Reason: Pain, Severe (Pain Scale 7-10) Ceftriaxone Sodium 1 gm/ (Sodium Chloride) 50 mls @ 100 mls/hr IV Q24H ORAL Dextrose (D10) 250 mls @ 750 mls/hr IV Q15M PRN; Protocol PRN Reason: per Hypoglycemia Standing Ord. Insulin Human Lispro (Insulin Lispro 100 Unit/Ml 3 Ml Vial) 0 unit SUBCUT QIDAC[facility]; Protocol Sodium Chloride (0.9 % Sodium Chloride Flush 3 Ml Syringe) [facility] Medications ?Medication ?Instructions ?Recorded ?Confirmed ?Last Taken ?Type atorvastatin 40 mg tablet 40 mg PO DAILY 10/24/20 11/16/23 Unknown History budesonide-formoterol HFA 160 2 puff inhalation BID 10/24/20 11/16/23 Unknown History mcg-4.5 mcg/actuation aerosol inhaler duloxetine 60 mg capsule,delayed 120 mg PO DAILY 10/24/20 11/16/23 Unknown History release fluticasone propionate 50 2 spray intranasal DAILY 10/24/20 11/16/23 Unknown History mcg/actuation nasal spray,suspension furosemide 40 mg tablet 40 mg PO DAILY 10/24/20 11/16/23 Unknown History gabapentin 100 mg capsule 100 mg PO DAILY Pain 10/24/20 11/16/23 Unknown History isosorbide mononitrate 60 mg 60 mg PO DAILY 10/24/20 11/16/23 Unknown History tablet,extended release 24 hr levothyroxine 75 mcg tablet 75 mcg PO DAILY 10/24/20 11/16/23 Unknown History meclizine 25 mg tablet 25 mg PO TID PRN Vertigo 10/24/20 11/16/23 Unknown History montelukast 10 mg tablet 10 mg PO BEDTIME 10/24/20 11/16/23 Unknown History tamsulosin 0.4 mg capsule 0.4 mg PO BEDTIME 10/24/20 11/16/23 Unknown History temazepam 30 mg capsule 30 mg PO BEDTIME 10/24/20 11/16/23 Unknown History trazodone 150 mg tablet 150 mg PO BEDTIME Insomnia 10/24/20 11/16/23 Unknown History aspirin 81 mg tablet,delayed 1 tab PO DAILY 05/19/21 11/16/23 Unknown History release hydralazine 100 mg tablet 100 mg PO TID 05/19/21 11/16/23 Unknown History metformin 500 mg tablet 1 tab PO TIDWMEAL 05/19/21 11/16/23 Unknown History clonidine HCl 0.2 mg tablet 0.2 mg PO BEDTIME 07/29/22 11/16/23 Unknown History quetiapine 100 mg tablet 100 mg PO BEDTIME 07/29/22 11/16/23 Unknown History acetaminophen 650 mg 650 mg PO TID 04/05/23 11/16/23 Unknown History tablet,extended release ascorbic acid (vitamin C) 250 mg 250 mg PO DAILY 04/05/23 11/16/23 Unknown History tablet (Vitamin C) bupropion HCl 300 mg 24 hr tablet, 300 mg PO DAILY 04/05/23 11/16/23 Unknown History extended release cetirizine 10 mg tablet 10 mg PO DAILY 04/05/23 11/16/23 Unknown History cholecalciferol (vitamin D3) 50 50 mcg PO DAILY 04/05/23 11/16/23 Unknown History mcg (2,000 unit) capsule docusate sodium 100 mg capsule 100 mg PO BID 04/05/23 11/16/23 Unknown History blbnelyo-ani-iswyq acid 0.4 1 tab PO DAILY 04/05/23 11/16/23 Unknown History mg-lycopene 300 mcg-lutein 250 mcg tablet (Cerovite ) albuterol sulfate 90 mcg/actuation 2 puff inhalation Q4-6H PRN 06/24/23 11/16/23 Unknown History aerosol inhaler (Ventolin HFA) Shortness Of Breath Or Wheezing triamcinolone acetonide 0.1 % 1 appl topical DAILY 06/24/23 11/16/23 Unknown History topical ointment albuterol sulfate 2.5 mg/3 mL 2.5 mg inhalation Q4H PRN 11/16/23 11/16/23 Unknown History (0.083 %) solution for nebulization Shortness Of Breath Or Wheezing baclofen 10 mg tablet 10 mg PO TID 11/16/23 11/16/23 Unknown History ferrous sulfate 325 mg (65 mg 325 mg PO BID 11/16/23 11/16/23 Unknown History iron) tablet (FeroSul) metoprolol succinate 200 mg 200 mg PO DAILY 11/16/23 11/16/23 Unknown History tablet,extended release 24 hr nitroglycerin 0.4 mg sublingual 0.4 mg sublingual Q5M PRN Chest 11/16/23 11/16/23 Unknown History tablet Pain polyethylene glycol 3350 17 17 g PO DAILY 11/16/23 11/16/23 Unknown History gram/dose oral powder Physical Exam 2 Vital Signs and Narrative: Vital Signs: Last Vital Signs Temp 98.8 F 11/16/23 20:56 Pulse 100 11/16/23 20:56 Resp 17 11/16/23 20:56 BP 136/85 11/16/23 20:56 Pulse Ox 98 11/16/23 20:56 O2 Del Method Room Air 11/16/23 20:56 BMI result Body Mass Index 31.8 Constitutional - Awake and Alert, No apparent distress. Looks uncomfortable due to pain. Obese. HEENT - Pupils equally round. Normal sclerae. Moist oral mucosa. Heart - S1S2, RRR. Lungs - Normal lung expansion, Normal respiratory effort, No respiratory distress. Tachypnea. Bilateral wheezing. Abdomen - mildly distended, soft, pelvic tenderness to palpation. Positive guarding. No rebound. - No CVA tenderness Extremities - minimal pitting edema. Musculoskeletal - Normal inspection, normal ROM Skin - Warm/Dry Neurological - Alert & oriented x3. No focal weakness grossly noted. Normal speech. Psychological - Appropriate affect Results Labs 11/16/23 12:48 11/16/23 12:48 Labs: Laboratory Results - last 24 hr 11/16/23 11/16/23 11/16/23 12:48 19:31 20:49 MCV 86.9 MCH 29.4 MCHC 33.8 RDW 13.9 Plt Count 183 MPV 9.0 L Immature Gran % (Auto) 1.7 H Neut % (Auto) 65.9 Lymph % (Auto) 17.7 L [place] % (Auto) 11.6 H Eos % (Auto) 2.5 Baso % (Auto) 0.6 Lymph # (Auto) 0.9 L [place] # (Auto) 0.6 Eos # (Auto) 0.1 Baso # (Auto) 0.0 Abs Immat Gran (auto) 0.09 H Absolute Neuts (auto) 3.5 Absolute Nucleated RBC 0.000 Nucleated RBC % (auto) 0.0 Anion Gap 13 Estim Creat Clear Calc 71.7 Estimated GFR > 60 POC Glucose 186 H Random Glucose 277 H Calcium 10.3 H Magnesium 2.1 Total Bilirubin 0.5 AST 24 ALT 27 Alkaline Phosphatase 69 Total Protein 7.1 Albumin 4.1 Urine Color Red A Urine Appearance Cloudy Urine pH 6.5 Ur Specific [place] 1.020 Urine Protein 100 (2+) H Urine Glucose (UA) 100 H Urine Ketones Negative Urine Blood Large (3+) H Urine Nitrite Negative Ur Leukocyte Esterase Small (1+) H Urine RBC >20 H Urine WBC 6-10 H Ur Squamous Epith Cells 0-2 Urine Bacteria None Seen Hyaline Casts 0-2 Imaging Radiologist's Impressions: Impressions Abdomen/Pelvis CT 11/16/23 16:55 IMPRESSION: Markedly distended urinary bladder with markedly enlarged prostate. The prostate indents the bladder and there is some irregular density at the junction of the right bladder trigone with the prostate. There is dilation of the intrarenal collecting system and ureter on both sides. There are areas of cortical scarring in the right kidney. Cystitis and or urinary obstruction such as bladder outlet obstruction are likely. This study does not exclude bladder masses. Fleischner guidelines were followed. Assessment and Plan (1) Gross hematuria: Status: Acute (2) UTI (urinary tract infection): Qualifiers: Urinary tract infection type: acute cystitis Hematuria presence: with hematuria Qualified Code(s): N30.01 - Acute cystitis with hematuria Status: Acute (3) Acute asthma exacerbation: Qualifiers: Asthma severity: unspecified severity Asthma persistence: unspecified Qualified Code(s): J45.901 - Unspecified asthma with (acute) exacerbation Status: Acute Plan Emory Cui is a 73 years old man admitted with: * Urinary retention associated with gross hematuria; presumed urinary tract infection. Admit to hospitalist service. S/p indwelling urinary catheter placed by Urology. Irrigations as needed. Hold aspirin. Continue tamsulosin. Recheck H and H at 11 pm. Ceftriaxone 1 g IV daily. obtained -will follow results. Appreciate urology input. * Acute asthma exacerbation. Bronchodilator therapy as needed. Continue Symbicort or alternative. Continue fluticasone, Claritin and montelukast. * Type 2 diabetes mellitus. Blood glucose monitoring before meals and bedtime. Insulin sliding scale. Continue metformin. * Obstructive sleep apnea. Not using CPAP. * Essential hypertension. Continue metoprolol, hydralazine and clonidine. * Hyperlipidemia. Continue atorvastatin. * Depression. Continue trazodone and duloxetine. * Hypothyroidism Continue levothyroxine. * Obesity due to excess calories. BMI 31.8 kg/m2. Weight loss. DVT prophylaxis: SCDs Code status: Full Patient will need hospitalization for at least 2 midnights for urinary retention and gross hematuria treatment. Patient will need bladder irrigation, H&H monitoring and follow-up by Urology. Quality Stroke Does the patient have a stroke diagnosis?: No VTE Prior VTE?: No VTE Risk Level:: Medical - moderate - high VTE Device Contraindication: N/A - Device Ordered VTE Drug Contraindication: Treatment Not Indicated
[2023-11-16] MEDS: Albuterol/Iprat 2.5/0.5MG 3 ML AMPUL.NEB INHALE (21:00)
--- NOTE | 2023-11-16 21:14 | PC.NURSE ---
pt noted to have minimal nathan output, nathan irrigated at this time, multiple small blood clots irrigated out, pt bladder scanned for 391, dr. Boucher aware, verbal to continue PRN irrigation.
[2023-11-16] MEDS: Insulin Lispro 100 UNIT/ML 3 ML VIAL SUBCUT (21:23)
[2023-11-16 21:54] VITALS: BP 133/70
[2023-11-16] MEDS: cloNIDine HCL 0.2 MG TABLET PO (21:54)
--- NOTE | 2023-11-16 22:36 | PHA.MEDREC ---
Pharmacy Consult ? Medication Reconciliation Pharmacy has completed the medication reconciliation. Patient being difficult to talk to do to being in pain. Reported he takes all medicaitons he fills at the pharmacy. Did have him confirm all inhalers. Patient did report taking temazepam at bedtime. Awilda Romo, PharmD
[2023-11-16 23:55] LABS: Hematocrit 36.8 % (42.0-52.0); Hemoglobin 12.2 g/dl (14.0-18.0)
[2023-11-17] VITALS (14 sets, daily range): BP systolic 104–147; BP diastolic 50–82; PULSE 82–99; RESP 13–22; TEMP 36.3–36.9; O2SAT 92–98
--- NOTE | 2023-11-17 00:53 | PC.NURSE ---
attempted to irrigate pt nathan at this time, able to advance normal saline but unable to obtain fluid back. contacted at this time, reports that nathan is in correct position, and to continue to manual irrigate, even with minimal urine output. at bedside, preformed bedside ultrasound of bladder, attempted to manually irrigate with this RN, small amount of irrigation normal saline pulled back.
[2023-11-17] MEDS: 0.9 % Sodium Chloride Flush 3 ML SYRINGE IVFLUSH ×2 (01:05→08:04)
--- NOTE | 2023-11-17 02:00 | PC.NURSE ---
per , remove nathan at this time.
--- NOTE | 2023-11-17 04:22 | PC.NURSE ---
at bedside placing a 3 way catheter system, continuous irrigation placed on pt, draining well. multiple clots removed by provider. pt vss.
[2023-11-17] MEDS: Lidocaine HCl 2 % Urojet 10 ML JEL.PF.APP TOPICAL ×3 (04:24)
--- NOTE | 2023-11-17 04:36 | P.PNUR_ITS ---
Subjective Subjective Date of Service: 11/17/23 Interval history: Gross hematuria with clots, unable to irrigate due to large clots. Bladder scan >[address] mL [address] nathan placed with cystoscopic guidance. Bladder irrigation 2500 mL saline irrigant multiple clots removed. CBI started Physical Exam 2 Vital Signs: Vital Signs: Last Vital Signs Temp 97.7 F 11/17/23 04:23 Pulse 88 11/17/23 04:23 Resp 17 11/17/23 04:23 BP 147/71 H 11/17/23 04:23 Pulse Ox 96 11/17/23 04:23 O2 Del Method Room Air 11/17/23 04:23 BMI result Body Mass Index 31.8 Urology Results Labs 11/16/23 23:48 11/16/23 12:48 Labs: Laboratory Results - last 24 hr 11/16/23 11/16/23 11/16/23 12:48 19:31 20:49 WBC 5.2 RBC 4.52 L Hgb 13.3 L Hct 39.3 L MCV 86.9 MCH 29.4 MCHC 33.8 RDW 13.9 Plt Count 183 MPV 9.0 L Immature Gran % (Auto) 1.7 H Neut % (Auto) 65.9 Lymph % (Auto) 17.7 L [place] % (Auto) 11.6 H Eos % (Auto) 2.5 Baso % (Auto) 0.6 Lymph # (Auto) 0.9 L [place] # (Auto) 0.6 Eos # (Auto) 0.1 Baso # (Auto) 0.0 Abs Immat Gran (auto) 0.09 H Absolute Neuts (auto) 3.5 Absolute Nucleated RBC 0.000 Nucleated RBC % (auto) 0.0 Sodium 140 Potassium 3.6 Chloride 102 Carbon Dioxide 29 Anion Gap 13 BUN 11 Creatinine 1.09 Estim Creat Clear Calc 71.7 Estimated GFR > 60 POC Glucose 186 H Random Glucose 277 H Calcium 10.3 H Magnesium 2.1 Total Bilirubin 0.5 AST 24 ALT 27 Alkaline Phosphatase 69 Total Protein 7.1 Albumin 4.1 Urine Color Red A Urine Appearance Cloudy Urine pH 6.5 Ur Specific [place] 1.020 Urine Protein 100 (2+) H Urine Glucose (UA) 100 H Urine Ketones Negative Urine Blood Large (3+) H Urine Nitrite Negative Ur Leukocyte Esterase Small (1+) H Urine RBC >20 H Urine WBC 6-10 H Ur Squamous Epith Cells 0-2 Urine Bacteria None Seen Hyaline Casts 0-2 11/16/23 23:48 WBC RBC Hgb 12.2 L Hct 36.8 L MCV MCH MCHC RDW Plt Count MPV Immature Gran % (Auto) Neut % (Auto) Lymph % (Auto) [place] % (Auto) Eos % (Auto) Baso % (Auto) Lymph # (Auto) [place] # (Auto) Eos # (Auto) Baso # (Auto) Abs Immat Gran (auto) Absolute Neuts (auto) Absolute Nucleated RBC Nucleated RBC % (auto) Sodium Potassium Chloride Carbon Dioxide Anion Gap BUN Creatinine Estim Creat Clear Calc Estimated GFR POC Glucose Random Glucose Calcium Magnesium Total Bilirubin AST ALT Alkaline Phosphatase Total Protein Albumin Urine Color Urine Appearance Urine pH Ur Specific [place] Urine Protein Urine Glucose (UA) Urine Ketones Urine Blood Urine Nitrite Ur Leukocyte Esterase Urine RBC Urine WBC Ur Squamous Epith Cells Urine Bacteria Hyaline Casts Urology Procedures Catheter Insertion (Urinary) Date of insertion: 11/17/23 Time of insertion: 03:51 Replacement of catheter present on admission: No Reason for placing: Acute urinary retention Patient has the following: other (gross hematuria, bladder clots) Bladder scan/ultrasound used before catheterization: Yes Estimated amount of urine (mLs): 500 Antiseptic solution prep: Povidone-Iodine Topical anesthesia used: Yes Catheter type/location: 3-way Urethral Size (Cuban): 24 Catheter balloon size (mL): 30 Catheter balloon amount: 25 Results: successfully catheterized-immediate flow Comment: Disposible Flexible cystoscope [id number] Additional comments: Flexible cystoscope was passed transurethrally, trilobar enlargement prostate, bladder with significant clots. Amplatz stiff guide wire passed through cystoscope into bladder. [address] catheter passed over the guide wire. The bladder was irrigated with 2500 mL for several clots irrigated out. Progress Note: A&P Assessment and plan (1) BPH (benign prostatic hyperplasia): Status: Acute (2) Gross hematuria: Status: Acute (3) Urinary retention: Status: Acute Assessment and Plan: Continuous bladder irrigation Time Spent With Patient Time: Total time managing care of this patient today _80___ minutes. Progress Note: Quality Stroke Does the patient have a stroke diagnosis?: No
[2023-11-17 05:30] LABS: Hematocrit 35.5 % (42.0-52.0); Hemoglobin 11.8 g/dl (14.0-18.0); Mean Corpuscular HGB Conc 33.2 g/dl (31.0-36.0); Mean Corpuscular Hemoglobin 29.3 pg (27.0-33.0); Mean Corpuscular Volume 88.1 fL (80.0-98.0); Platelet Count 215 X10*3/uL (160-400); Red Blood Count 4.03 X10*6/uL (4.60-5.80); Red Cell Distribution Width 14.1 % (11.0-16.0)
[2023-11-17 05:51] LABS: Alanine Aminotransferase 26 U/L (0-40); Albumin Level 3.9 g/dL (3.5-5.0); Alkaline Phosphatase 65 U/L (39-117); Anion Gap 19 (12-20); Aspartate Amino Transferase 25 U/L (5-37); Bilirubin Total 0.6 mg/dL (0.0-1.0); Blood Urea Nitrogen 18 mg/dL (9-16); Carbon Dioxide 24 mmol/L (22-29); Chloride 103 mmol/L (96-108); Creatinine Clr Calc Pharmacy 44.1; Estimated Glomerular Filt Rate 38; Glucose Random 266 mg/dL (60-115); Potassium 4.6 mmol/L (3.3-5.1); Sodium 141 mmol/L (135-145); Total Protein 6.8 g/dL (6.5-8.0)
[2023-11-17] MEDS: Levothyroxine Sodium 75 MCG TABLET PO (06:36)
--- NOTE | 2023-11-17 06:41 | PC.NURSE ---
pt has received approx. 5000ml of continuous bladder irrigation, pt has output approx. 6000ml of red tinged urine. pt tolerating well.
[2023-11-17 07:44] LABS: Glucose, Whole Blood 217 mg/dL (60-115)
[2023-11-17] MEDS: Insulin Lispro 100 UNIT/ML 3 ML VIAL SUBCUT ×3 (08:02→18:00)
[2023-11-17] MEDS: Sodium Chloride 0.45 % 1,000 ML 100 ML IVCONT (08:03)
[2023-11-17] MEDS: Fluticasone/Vilanterol 200/25 BLST.W.DEV 1 PUFF INHALE (08:17)
[2023-11-17] MEDS: Multivitamin TABLET 1 TAB PO (10:39)
[2023-11-17] MEDS: Atorvastatin Calcium 40 MG TABLET PO (10:39)
[2023-11-17] MEDS: Gabapentin 100 MG CAPSULE PO (10:39)
[2023-11-17] MEDS: Metoprolol Succinate ER 100 MG TAB.ER.24H 200 MG PO (10:39)
[2023-11-17] MEDS: Baclofen 10 MG TABLET PO ×3 (10:39→23:16)
[2023-11-17] MEDS: DULoxetine HCl 60 MG CAPSULE.DR 120 MG PO (10:39)
[2023-11-17] MEDS: hydrALAZINE HCl 50 MG TABLET 100 MG PO ×2 (10:40→16:59)
[2023-11-17] MEDS: Cholecalciferol (Vitamin D3) 25 MCG TABLET 50 MCG PO (10:40)
[2023-11-17] MEDS: Isosorbide Mononitrate 60 MG TAB.ER.24H PO (10:42)
[2023-11-17] MEDS: Loratadine 10 MG TABLET PO (10:42)
[2023-11-17] MEDS: Ferrous Sulfate 324 MG TABLET.DR PO ×2 (10:43→23:07)
[2023-11-17] MEDS: polyethylene glycoL 3350 17 GM POWD.PACK PO (10:45)
[2023-11-17] MEDS: buPROPion HCl XL 300 MG TAB.ER.24H PO (11:07)
--- NOTE | 2023-11-17 11:26 | HO.PM.IMPN ---
Subjective Subjective Date of Service: 11/17/23 Interval History: Being followed for urinary retention and hematuria as well as shortness of breath. Patient complaining of shortness of breath, and chest tightness of 1 week duration using home inhalers with no relief, denies fever, no chills. Abdominal pain resolved receiving CBI with punch colored urine. Events from last night noted. Review of Systems All other system reviewed and negative Physical Exam Vital Signs: Vital Signs: Last Vital Signs Temp 97.5 F 11/17/23 08:13 Pulse 89 11/17/23 11:10 Resp 13 11/17/23 11:10 BP 141/82 H 11/17/23 11:10 Pulse Ox 95 11/17/23 08:13 O2 Del Method Room Air 11/17/23 08:13 BMI result Body Mass Index 31.8 Const: Other: General awake alert x3, resting comfortably in no acute distress. Neck supple no JVD. CVS regular rate rhythm, Respiratory lungs bilateral expiratory wheeze, diminished breath sounds, no respiratory distress. Gastrointestinal abdomen soft, non tender, obese, bowel sounds audible, no guarding , no rigidity. Extremities no edema. Neuro non focal Skin no rash Psych appropriate affect [place] with punch colored urine Objective Data Active Medications Acetaminophen (Acetaminophen 325 Mg Tablet) 975 mg PO Q6H PRN PRN Reason: mild pain, headache or fever Albuterol Sulfate (Albuterol Sulfate (0.083%) 2.5 Mg/3 Ml Vial.Neb) 2.5 mg INHALE Q2H PRN PRN Reason: Shortness of Breath/Wheezing Atorvastatin Calcium (Atorvastatin Calcium 40 Mg Tablet) 40 mg PO DAILY [facility] Last Admin: 11/17/23 10:39 Dose: 40 mg Documented By: JASPER Baclofen (Baclofen 10 Mg Tablet) 10 mg PO TID [facility] Last Admin: 11/17/23 10:39 Dose: 10 mg Documented By: JASPER Bupropion HCl (Bupropion Hcl Xl 300 Mg Tab.Er.24h) 300 mg PO DAILY [facility] Last Admin: 11/17/23 11:07 Dose: 300 mg Documented By: JASPER Clonidine HCl (Clonidine Hcl 0.2 Mg Tablet) 0.2 mg PO BEDTIME [facility]; Protocol Last Admin: 11/16/23 21:54 Dose: 0.2 mg Documented By: KIRAN Duloxetine HCl (Duloxetine Hcl 60 Mg Capsule.) 120 mg PO DAILY [facility] Last Admin: 11/17/23 10:39 Dose: 120 mg Documented By: JASPER Ferrous Sulfate (Ferrous Sulfate 324 Mg Tablet.) 324 mg PO BID [facility] Last Admin: 11/17/23 10:43 Dose: 324 mg Documented By: JASPER Fluticasone Propionate (Fluticasone Propionate Nasal 16 Gm [place]) 2 spray NOSTRIL-B DAILY [facility] Fluticasone/Vilanterol (Fluticasone/Vilanterol 200/25 Blst.W.Dev) 1 puff INHALE RDAILY [facility] Last Admin: 11/17/23 08:17 Dose: 1 puff Documented By: NANCY Gabapentin (Gabapentin 100 Mg Capsule) 100 mg PO DAILY [facility] Last Admin: 11/17/23 10:39 Dose: 100 mg Documented By: JASPER Glucose (Glucose Gel 15 Gm Gel..Gram.) 15 gm PO Q15M PRN; Protocol PRN Reason: per Hypoglycemia Standing Ord. Hydralazine HCl (Hydralazine Hcl 50 Mg Tablet) 100 mg PO TID [facility]; Protocol Last Admin: 11/17/23 10:40 Dose: 100 mg Documented By: JASPER Hydromorphone HCl (Hydromorphone Hcl 1 Mg/Ml Syringe) 0.5 mg IVPUSH Q4H PRN; Protocol PRN Reason: Pain, Severe (Pain Scale 7-10) Ceftriaxone Sodium 1 gm/ (Sodium Chloride) 50 mls @ 100 mls/hr IV Q24H [facility] Dextrose (D10) 250 mls @ 750 mls/hr IV Q15M PRN; Protocol PRN Reason: per Hypoglycemia Standing Ord. Sodium Chloride (Sodium Chloride 0.45 %) 1,000 mls @ 100 mls/hr IVCONT .Q10H [facility] Stop: 11/17/23 17:44 Last Admin: 11/17/23 08:03 Dose: 100 mls/hr Documented By: ARI Insulin Human Lispro (Insulin Lispro 100 Unit/Ml 3 Ml Vial) 0 unit SUBCUT QIDACHS [facility]; Protocol Last Admin: 11/17/23 08:02 Dose: 6 unit Documented By: ARI Isosorbide Mononitrate (Isosorbide Mononitrate 60 Mg Tab.Er.24h) 60 mg PO DAILY [facility]; Protocol Last Admin: 11/17/23 10:42 Dose: 60 mg Documented By: JASPER Levothyroxine Sodium (Levothyroxine Sodium 75 Mcg Tablet) 75 mcg PO DAILY@0600 [facility] Last Admin: 11/17/23 06:36 Dose: 75 mcg Documented By: KIRAN Loratadine (Loratadine 10 Mg Tablet) 10 mg PO DAILY [facility] Last Admin: 11/17/23 10:42 Dose: 10 mg Documented By: JASPER Meclizine HCl (Meclizine Hcl 25 Mg Tablet) 25 mg PO TID PRN PRN Reason: Vertigo Metoprolol Succinate (Metoprolol Succinate Er 100 Mg Tab.Er.24h) 200 mg PO DAILY [facility]; Protocol Last Admin: 11/17/23 10:39 Dose: 200 mg Documented By: JASPER Montelukast Sodium (Montelukast Sodium 10 Mg Tablet) 10 mg PO BEDTIME [facility] Multivitamins/Vitamin C (Multivitamin Tablet) 1 tab PO DAILY [facility] Last Admin: 11/17/23 10:39 Dose: 1 tab Documented By: JASPER Nitroglycerin (Nitroglycerin 0.4 Mg Tab.Subl) 0.4 mg SUBLINGUAL Q5M PRN PRN Reason: Chest Pain Polyethylene Glycol (Polyethylene Glycol 3350 17 Gm Powd.Pack) 17 gm PO DAILY [facility] Last Admin: 11/17/23 10:45 Dose: 17 gm Documented By: JASPER Sodium Chloride (0.9 % Sodium Chloride Flush 3 Ml Syringe) 3 ml IVFLUSH QSHIFT [facility] Last Admin: 11/17/23 08:04 Dose: 3 ml Documented By: ARI Tamsulosin HCl (Tamsulosin Hcl 0.4 Mg Capsule) 0.4 mg PO BEDTIME [facility] Temazepam (Temazepam 15 Mg Capsule) 30 mg PO BEDTIME [facility] Vitamin D (Cholecalciferol (Vitamin D3) 25 Mcg Tablet) 50 mcg PO DAILY [facility] Last Admin: 11/17/23 10:40 Dose: 50 mcg Documented By: JASPER Labs 11/17/23 05:07 11/17/23 05:07 Labs: Laboratory Results - last 24 hr 11/16/23 11/16/23 11/16/23 12:48 19:31 20:49 MCV 86.9 MCH 29.4 MCHC 33.8 RDW 13.9 Plt Count 183 MPV 9.0 L Immature Gran % (Auto) 1.7 H Neut % (Auto) 65.9 Lymph % (Auto) 17.7 L [place] % (Auto) 11.6 H Eos % (Auto) 2.5 Baso % (Auto) 0.6 Lymph # (Auto) 0.9 L [place] # (Auto) 0.6 Eos # (Auto) 0.1 Baso # (Auto) 0.0 Abs Immat Gran (auto) 0.09 H Absolute Neuts (auto) 3.5 Absolute Nucleated RBC 0.000 Nucleated RBC % (auto) 0.0 Anion Gap 13 Estim Creat Clear Calc 71.7 Estimated GFR > 60 POC Glucose 186 H Random Glucose 277 H Calcium 10.3 H Magnesium 2.1 Total Bilirubin 0.5 AST 24 ALT 27 Alkaline Phosphatase 69 Total Protein 7.1 Albumin 4.1 Urine Color Red A Urine Appearance Cloudy Urine pH 6.5 Ur Specific [place] 1.020 Urine Protein 100 (2+) H Urine Glucose (UA) 100 H Urine Ketones Negative Urine Blood Large (3+) H Urine Nitrite Negative Ur Leukocyte Esterase Small (1+) H Urine RBC >20 H Urine WBC 6-10 H Ur Squamous Epith Cells 0-2 Urine Bacteria None Seen Hyaline Casts 0-2 11/17/23 11/17/23 05:07 07:33 MCV 88.1 MCH 29.3 MCHC 33.2 RDW 14.1 Plt Count 215 MPV 9.0 L Immature Gran % (Auto) Neut % (Auto) Lymph % (Auto) [place] % (Auto) Eos % (Auto) Baso % (Auto) Lymph # (Auto) [place] # (Auto) Eos # (Auto) Baso # (Auto) Abs Immat Gran (auto) Absolute Neuts (auto) Absolute Nucleated RBC 0.000 Nucleated RBC % (auto) 0.0 Anion Gap 19 Estim Creat Clear Calc 44.1 Estimated GFR 38 POC Glucose 217 H Random Glucose 266 H Calcium 10.0 Magnesium Total Bilirubin 0.6 AST 25 ALT 26 Alkaline Phosphatase 65 Total Protein 6.8 Albumin 3.9 Urine Color Urine Appearance Urine pH Ur Specific [place] Urine Protein Urine Glucose (UA) Urine Ketones Urine Blood Urine Nitrite Ur Leukocyte Esterase Urine RBC Urine WBC Ur Squamous Epith Cells Urine Bacteria Hyaline Casts Assessment and Plan (1) Acute asthma exacerbation: Status: Acute (2) Gross hematuria: Status: Acute (3) Urinary retention: Status: Acute Plan Emory Cui is a 73 years old man admitted with shortness of breath, chest tightness of one-week duration and inability to urinate associated with abdominal pain of 1 day duration: CT abdomen showed distended urinary bladder with blood products, bilateral renal collecting system and ureteral prominence extending to urinary bladder, significant prostate gland hypertrophy, diverticulosis of descending colon, stable low-density right adrenal lesion. Acute Urinary retention associated with gross hematuria; Likely related to BPH, urinalysis showed no bacteria but urine was noted to be cloudy. S/p indwelling urinary catheter placement and bladder irrigation by Urology several clots were irrigated out, continue CBI Hold aspirin. Continue tamsulosin. Repeat hematocrit stable, follow CBC closely Continue IV ceftriaxone empirically and follow urine culture . Being followed by Urology. Acute exacerbation of mild intermittent asthma , will place on IV steroids, DuoNeb updraft, Continue Symbicort or alternative, fluticasone, Claritin and montelukast. Acute kidney injury likely due to urinary retention hold Lasix, give IV fluids follow renal function Type 2 diabetes mellitus. Elevated blood sugars , will hold metformin follow blood sugars and adjust insulin sliding scale. Obstructive sleep apnea. Not using CPAP. Essential hypertension. Continue metoprolol, hydralazine and clonidine, initially noted to have elevated blood pressure now improved. Hyperlipidemia. Continue atorvastatin. Depression/mood disorder. Continue trazodone and duloxetine. Hypothyroidism Continue levothyroxine. Obesity due to excess calories. BMI 31.8 kg/m2. Recommend low-calorie diet . DVT prophylaxis: SCDs Code status: Full Patient will need continued inpatient hospitalization for urinary retention and gross hematuria treatment. Patient will need bladder irrigation, H&H monitoring and follow-up by Urology. Quality Stroke Does the patient have a stroke diagnosis?: No VTE Prior VTE?: No VTE Risk Level:: Medical - moderate - high VTE Device Contraindication: N/A - Device Ordered VTE Drug Contraindication: Treatment Not Indicated
[2023-11-17] MEDS: Fluticasone Propionate Nasal 16 GM SPRAY 2 SPRAY NOSTRIL-B (11:39)
[2023-11-17 13:28] LABS: Glucose, Whole Blood 178 mg/dL (60-115)
--- NOTE | 2023-11-17 17:04 | PC.NURSE ---
CBI output continues to be red.
--- NOTE | 2023-11-17 17:21 | PC.NURSE ---
New IV line place in RAC
[2023-11-17 17:26] LABS: Hematocrit 27.5 % (42.0-52.0); Hemoglobin 9.4 g/dl (14.0-18.0); Mean Corpuscular HGB Conc 34.2 g/dl (31.0-36.0); Mean Corpuscular Hemoglobin 29.7 pg (27.0-33.0); Platelet Count 200 X10*3/uL (160-400); Red Blood Count 3.16 X10*6/uL (4.60-5.80); Red Cell Distribution Width 14.6 % (11.0-16.0); White Blood Count 10.3 X10*3/uL (4.8-10.8)
[2023-11-17 17:54] LABS: Glucose, Whole Blood 174 mg/dL (60-115)
--- NOTE | 2023-11-17 18:22 | PC.NURSE ---
Pt resting quietly, watching TV. VSS, new orders at this time.
--- NOTE | 2023-11-17 19:50 | PC.NURSE ---
pt is resting comfortably in stretcher at this time. cbi continuing on 7th bag. urine appears pink in color without clots draining into nathan bag. pt denies pain. resp even and unlabored. call palumbo within reach.
--- NOTE | 2023-11-17 20:21 | PC.NURSE ---
8th bag of cbi hung. urine draining pink without clots.
--- NOTE | 2023-11-17 22:10 | MHC.CM.ED ---
IMM 09/18. Original to patient and copy to medical records. Patient lives alone. Address verified. Has a cane, walker and wheelchair and nebulizer. Has a daily [employer] for 1 hour and has a nurse weekly. Pt does not remember the agency. Reviewed HCP and patient declines at this time. PCP verified. THRIVE assessment WNL. D/C plan: Home with existing services. [facility] [facility] [facility] will transport patient home. CM will follow for discharge planning needs.
[2023-11-17] MEDS: QUEtiapine Fumarate 100 MG TABLET PO (23:07)
[2023-11-17] MEDS: Temazepam 15 MG CAPSULE 30 MG PO (23:07)
[2023-11-17] MEDS: Montelukast Sodium 10 MG TABLET PO (23:07)
[2023-11-17] MEDS: cloNIDine HCL 0.2 MG TABLET PO (23:07)
[2023-11-17] MEDS: cefTRIAXone sodium 1 GM in 0.9 % Sodium Chloride 50 ML IV (23:08)
[2023-11-17] MEDS: Tamsulosin HCL 0.4 MG CAPSULE PO (23:08)
[2023-11-17] MEDS: Docusate Sodium 100 MG CAPSULE PO (23:08)
[2023-11-17 23:13] LABS: Glucose, Whole Blood 122 mg/dL (60-115)
[2023-11-17] MEDS: HYDROmorphone HCl 1 MG/ML SYRINGE 0.5 MG IVPUSH (23:16)
--- NOTE | 2023-11-17 23:51 | PC.NURSE ---
pt transported to 361 with 10th bag of cbi infusing. urine draining in nathan.
[2023-11-18] VITALS (27 sets, daily range): BP systolic 71–188; BP diastolic 33–90; PULSE 74–92; RESP 14–22; TEMP 35.9–37.4; O2SAT 92–99
--- NOTE | 2023-11-18 | ECG_ITS ---
Test Reason : SOB Blood Pressure : / mmHG Vent. Rate : 076 BPM Atrial Rate : 076 BPM P-R Int : 148 ms QRS Dur : 094 ms QT Int : 402 ms P-R-T Axes : -01 -26 -88 degrees QTc Int : 452 ms Normal sinus rhythm with sinus arrhythmia Nonspecific ST and T wave abnormality Abnormal ECG When compared with ECG of 18-FEB-2022 16:47, No significant change was found Referred By: Sarah Bishop Electronically Signed By:OLGA MCCORMICK MD
--- NOTE | 2023-11-18 00:07 | MHC.EDTECH ---
PATIENT HAS 2,689 IN WALLET, REFUSES TO HAVE IT LOCKED IN SECURITY. COUNTED AND WITNESSED.
[2023-11-18] MEDS: Naloxone HCl Nasal 4 MG SPRAY NOSTRILALT ×2 (00:22→00:28)
[2023-11-18 00:25] LABS: Glucose, Whole Blood 139 mg/dL (60-115)
[2023-11-18] MEDS: Naloxone HCl 0.4 MG/ML VIAL IVPUSH (00:26)
[2023-11-18 00:48] LABS: MANUAL DIFF FLAG NO
[2023-11-18 00:49] LABS: Basophils Percent Auto 0.2 % (0-2); Eosinophils Absolute Auto 0.1 X10*3/uL (0.0-0.4); Eosinophils Percent Auto 0.5 % (0-4); Hematocrit 23.9 % (42.0-52.0); Hemoglobin 8.2 g/dl (14.0-18.0); Imm Gran Abs Auto 0.03 X10*3/uL (0.00-0.03); Imm Gran Pct Auto 0.3 % (0.0-0.4); Lymphocytes Absolute Auto 1.7 X10*3/uL (1.2-4.9); Lymphocytes Percent Auto 17.8 % (20-40); Mean Corpuscular HGB Conc 34.3 g/dl (31.0-36.0); Mean Corpuscular Hemoglobin 29.4 pg (27.0-33.0); Mean Corpuscular Volume 85.7 fL (80.0-98.0); Mean Platelet Volume 9.2 fL (9.4-12.4); Monocytes Absolute Auto 1.3 X10*3/uL (0.1-1.2); Monocytes Percent Auto 14.1 % (2-11); Neutrophils Absolute Auto 6.4 x10*3/uL (2.0-8.3); Neutrophils Percent Auto 67.1 % (45-73); Platelet Count 169 X10*3/uL (160-400); Red Blood Count 2.79 X10*6/uL (4.60-5.80); Red Cell Distribution Width 14.4 % (11.0-16.0); White Blood Count 9.5 X10*3/uL (4.8-10.8)
--- NOTE | 2023-11-18 01:02 | PC.NURSE ---
0000 pt was unresponsive to painful stimuli. Dr. Hao Bishop and RT called to bedside. poc 139. vss. sats 97% on RA end tital co2 39. 8mg Nasal narcan administered 0.4 mg iv narcan administered, ivf bolus ns hung per dr. hoa bishop verbal order. pt had episodes of apnea. ekg obtained. 2nd iv obtained. labs drawn as ordered. [facility] called to bedside. pt became axox4 approx 0100; planned to place pt as cpap as pt has sleep apnea and stated he wasnt using his cpap at home d/t it having cockroaches in it. pt now resting comfortably with cpap. pt admission changed to imc per dr. hao bishop. vitals as documented.
[2023-11-18 01:05] LABS: Lactic Acid 1.1 mmol/L (0.5-2.0)
--- NOTE | 2023-11-18 01:06 | PC.RT ---
ABG completed for unresponsiveness ABG results PH: 7.51 pCO2: 37.7 pO2: 78.6 HCO:30.85 notified
[2023-11-18 01:09] LABS: Alanine Aminotransferase 17 U/L (0-40); Alkaline Phosphatase 44 U/L (39-117); Anion Gap 9 (12-20); Aspartate Amino Transferase 16 U/L (5-37); Bilirubin Total 0.3 mg/dL (0.0-1.0); Blood Urea Nitrogen 23 mg/dL (9-16); Calcium 9.1 mg/dL (8.4-10.2); Carbon Dioxide 30 mmol/L (22-29); Chloride 101 mmol/L (96-108); Creatinine Clr Calc Pharmacy 63.5; Estimated Glomerular Filt Rate 58; Glucose Random 151 mg/dL (60-115); Potassium 3.5 mmol/L (3.3-5.1); Sodium 136 mmol/L (135-145); Total Protein 5.1 g/dL (6.5-8.0)
[2023-11-18 01:10] LABS: Troponin-I High Sensitivity 27.3 ng/L (<3.5-35.0)
[2023-11-18 01:17] LABS: ABG Base Excess 8.1 mmol/L; ABG HCO3 31 mmol/L (22-26); ABG pCO2 38 mmHg (32-45); ABG pH 7.52 (7.35-7.45); ABG pO2 79 mmHg (83-108)
[2023-11-18 01:18] LABS: ABG Refer to POC result
--- NOTE | 2023-11-18 02:32 | PC.NURSE ---
no changes to previous assessment by this RN. pt resting comfortably with cpap sats 98%. cbi continuing urinepink in color without clots.
[2023-11-18] MEDS: Lactated Ringers 1,000 ML 999 ML IV (03:02)
--- NOTE | 2023-11-18 03:13 | PC.NURSE ---
dr. ivy morrell notified of low bp. ivf bolus ordered. bp 101/58 now.
--- NOTE | 2023-11-18 03:51 | PM.EVENT ---
Event Note Date of Service: 11/18/23 Event Note: 12:18 AM - Patient was found to be unresponsive barely responsive to painful stimuli. Noted to have episodes of apnea. O2 sats were adequate. Cardiopulmonary exam showed was unremarkable. Patient has LUCA but is not compliante with CPAP at home. He said his CPAP machine has cockroaches and cannot use it. He does take multiple sedative at nighttime including temazepam, Seroquel and trazodone. He took these medications last night except trazodone and getting IV Dilaudid as needed. ABGs stat showed respiratory acidosis or hypoxia. He received 2 doses of naloxone 4 mg intranasally X2 and naloxone 0.4 mg IV with no response. Blood workup stat (CBC, CMP, lactic acid and troponin) was obtained and only remarkable for worsening anemia (Hgb 9.4 ->8.2). Subsequenlty patient started to become more responsive, however, somewhat confused and will fall asleep. This is a patient with LUCA noncompliant with CPAP on too many sedatives. Other interventions: -Noctural CPAP -Decrease temazepam to 15 mg PO -Discontinue Seroquel and Trazodone Time Spent With Patient Time: Total time managing care of this patient today ____ minutes.
[2023-11-18 05:25] LABS: Hematocrit 24.9 % (42.0-52.0); Hemoglobin 8.3 g/dl (14.0-18.0); Mean Corpuscular HGB Conc 33.3 g/dl (31.0-36.0); Mean Corpuscular Hemoglobin 29.4 pg (27.0-33.0); Mean Corpuscular Volume 88.3 fL (80.0-98.0); Mean Platelet Volume 9.6 fL (9.4-12.4); Platelet Count 155 X10*3/uL (160-400); Red Blood Count 2.82 X10*6/uL (4.60-5.80); Red Cell Distribution Width 14.4 % (11.0-16.0); White Blood Count 8.9 X10*3/uL (4.8-10.8)
[2023-11-18 05:39] LABS: Anion Gap 10 (12-20); Blood Urea Nitrogen 21 mg/dL (9-16); Carbon Dioxide 28 mmol/L (22-29); Chloride 104 mmol/L (96-108); Creatinine Clr Calc Pharmacy 69.7; Estimated Glomerular Filt Rate > 60; Glucose Random 173 mg/dL (60-115); Potassium 3.6 mmol/L (3.3-5.1); Sodium 138 mmol/L (135-145)
[2023-11-18] MEDS: Levothyroxine Sodium 75 MCG TABLET PO (06:03)
[2023-11-18 07:22] LABS: Glucose, Whole Blood 149 mg/dL (60-115)
[2023-11-18] MEDS: Multivitamin TABLET 1 TAB PO (07:46)
[2023-11-18] MEDS: Baclofen 10 MG TABLET PO (07:46)
[2023-11-18] MEDS: Loratadine 10 MG TABLET PO (07:47)
[2023-11-18] MEDS: Docusate Sodium 100 MG CAPSULE PO ×2 (07:47→20:45)
[2023-11-18] MEDS: Atorvastatin Calcium 40 MG TABLET PO (07:47)
[2023-11-18] MEDS: Ferrous Sulfate 324 MG TABLET.DR PO ×2 (07:47→20:45)
[2023-11-18] MEDS: Cholecalciferol (Vitamin D3) 25 MCG TABLET 50 MCG PO (07:47)
[2023-11-18] MEDS: DULoxetine HCl 60 MG CAPSULE.DR 120 MG PO (07:47)
[2023-11-18] MEDS: Gabapentin 100 MG CAPSULE PO (07:48)
[2023-11-18] MEDS: Metoprolol Succinate ER 100 MG TAB.ER.24H 200 MG PO (07:48)
[2023-11-18] MEDS: buPROPion HCl XL 300 MG TAB.ER.24H PO (07:48)
[2023-11-18] MEDS: polyethylene glycoL 3350 17 GM POWD.PACK PO (07:49)
[2023-11-18] MEDS: 0.9 % Sodium Chloride Flush 3 ML SYRINGE IVFLUSH ×3 (07:49→20:46)
[2023-11-18] MEDS: Fluticasone Propionate Nasal 16 GM SPRAY 2 SPRAY NOSTRIL-B (07:50)
[2023-11-18] MEDS: Fluticasone/Vilanterol 200/25 BLST.W.DEV 1 PUFF INHALE (07:59)
--- NOTE | 2023-11-18 08:20 | PC.NURSE ---
dr. michele at bedside pt aware of plan of care.
--- NOTE | 2023-11-18 08:36 | MHC.EDTECH ---
pt washed up. cleaned around catheter. linens changed.
--- NOTE | 2023-11-18 11:05 | P.PNIM_ITS ---
Subjective Subjective Date of Service: 11/18/23 Interval History: Complaining of discomfort at site of Quintanilla catheter, denies shortness of breath, no chest pain, no palpitations complaining of lightheadedness and dizziness, noted to have significant drop in blood pressure 85/43 last night, blood pressure stable this morning, CBI running urine light pink. No fevers, no chills. Events from last night noted patient was noted to be barely responsive to painful stimuli, treated with 2 dosages of naloxone 4 mg intranasally and IV naloxone 0.4 mg with no response workup showed drop in hemoglobin, otherwise unremarkable, subsequently patient started to become more responsive, was placed on CPAP, with underlying history of obstructive sleep apnea noncompliant with CPAP, home dose of Seroquel and trazodone were discontinued and dose of temazepam was reduced to 15 mg by mouth. Review of Systems All other system reviewed and negative Physical Exam 2 Vital Signs: Vital Signs: Last Vital Signs Temp 98.3 F 11/18/23 10:48 Pulse 78 11/18/23 10:48 Resp 20 11/18/23 10:48 BP 150/72 H 11/18/23 10:48 Pulse Ox 97 11/18/23 07:41 O2 Del Method CPAP 11/18/23 07:41 O2 Flow Rate 21 11/18/23 07:41 BMI result Body Mass Index 31.8 Const: Other: General awake alert x3, this morning tolerated CPAP last night, in no acute distress. Neck supple, no JVD. CVS regular rate rhythm, Respiratory lungs bilateral expiratory wheeze, diminished breath sounds, no respiratory distress. Gastrointestinal abdomen soft, non tender, obese, bowel sounds audible, no guarding , no rigidity. Extremities no edema. Neuro non focal Skin no rash Psych appropriate affect Quintanilla with light pink colored urine Objective Data Active Medications Acetaminophen (Acetaminophen 325 Mg Tablet) 975 mg PO Q6H PRN PRN Reason: mild pain, headache or fever Albuterol Sulfate (Albuterol Sulfate (0.083%) 2.5 Mg/3 Ml Vial.Neb) 2.5 mg INHALE Q2H PRN PRN Reason: Shortness of Breath/Wheezing Atorvastatin Calcium (Atorvastatin Calcium 40 Mg Tablet) 40 mg PO DAILY ORAL Last Admin: 11/18/23 07:47 Dose: 40 mg Documented By: IZAOC Baclofen (Baclofen 10 Mg Tablet) 10 mg PO TID [facility] Last Admin: 11/18/23 07:46 Dose: 10 mg Documented By: ANJEL Bupropion HCl (Bupropion Hcl Xl 300 Mg Tab.Er.24h) 300 mg PO DAILY [facility] Last Admin: 11/18/23 07:48 Dose: 300 mg Documented By: ANJEL Clonidine HCl (Clonidine Hcl 0.2 Mg Tablet) 0.2 mg PO BEDTIME [facility]; Protocol Last Admin: 11/17/23 23:07 Dose: 0.2 mg Documented By: MAGDA Docusate Sodium (Docusate Sodium 100 Mg Capsule) 100 mg PO BID [facility] Last Admin: 11/18/23 07:47 Dose: 100 mg Documented By: ANJEL Duloxetine HCl (Duloxetine Hcl 60 Mg Capsule.) 120 mg PO DAILY [facility] Last Admin: 11/18/23 07:47 Dose: 120 mg Documented By: ANJEL Ferrous Sulfate (Ferrous Sulfate 324 Mg Tablet.) 324 mg PO BID [facility] Last Admin: 11/18/23 07:47 Dose: 324 mg Documented By: ANJEL Fluticasone Propionate (Fluticasone Propionate Nasal 16 Gm [place]) 2 spray NOSTRIL-B DAILY [facility] Last Admin: 11/18/23 07:50 Dose: 2 spray Documented By: ANJEL Fluticasone/Vilanterol (Fluticasone/Vilanterol 200/25 Blst.W.Dev) 1 puff INHALE RDAILY [facility] Last Admin: 11/18/23 07:59 Dose: 1 puff Documented By: JAMES Gabapentin (Gabapentin 100 Mg Capsule) 100 mg PO DAILY [facility] Last Admin: 11/18/23 07:48 Dose: 100 mg Documented By: ANJEL Glucose (Glucose Gel 15 Gm Gel..Gram.) 15 gm PO Q15M PRN; Protocol PRN Reason: per Hypoglycemia Standing Ord. Hydromorphone HCl (Hydromorphone Hcl 1 Mg/Ml Syringe) 0.5 mg IVPUSH Q4H PRN; Protocol PRN Reason: Pain, Severe (Pain Scale 7-10) Last Admin: 11/17/23 23:16 Dose: 0.5 mg Documented By: MAGDA Ceftriaxone Sodium 1 gm/ (Sodium Chloride) 50 mls @ 100 mls/hr IV Q24H [facility] Last Infusion: 11/17/23 23:43 Dose: Infused Documented By: MAGDA Dextrose (D10) 250 mls @ 750 mls/hr IV Q15M PRN; Protocol PRN Reason: per Hypoglycemia Standing Ord. Insulin Human Lispro (Insulin Lispro 100 Unit/Ml 3 Ml Vial) 0 unit SUBCUT QIDACHS [facility]; Protocol Last Admin: 11/18/23 07:50 Dose: Not Given Documented By: ANJEL Non-Admin Reason: No Insulin Coverage Levothyroxine Sodium (Levothyroxine Sodium 75 Mcg Tablet) 75 mcg PO DAILY@0600 [facility] Last Admin: 11/18/23 06:03 Dose: 75 mcg Documented By: MAGDA Loratadine (Loratadine 10 Mg Tablet) 10 mg PO DAILY [facility] Last Admin: 11/18/23 07:47 Dose: 10 mg Documented By: ANJEL Meclizine HCl (Meclizine Hcl 25 Mg Tablet) 25 mg PO TID PRN PRN Reason: Vertigo Metoprolol Succinate (Metoprolol Succinate Er 100 Mg Tab.Er.24h) 200 mg PO DAILY [facility]; Protocol Last Admin: 11/18/23 07:48 Dose: 200 mg Documented By: ANJEL Montelukast Sodium (Montelukast Sodium 10 Mg Tablet) 10 mg PO BEDTIME [facility] Last Admin: 11/17/23 23:07 Dose: 10 mg Documented By: MAGDA Multivitamins/Vitamin C (Multivitamin Tablet) 1 tab PO DAILY [facility] Last Admin: 11/18/23 07:46 Dose: 1 tab Documented By: ANJEL Nitroglycerin (Nitroglycerin 0.4 Mg Tab.Subl) 0.4 mg SUBLINGUAL Q5M PRN PRN Reason: Chest Pain Polyethylene Glycol (Polyethylene Glycol 3350 17 Gm Powd.Pack) 17 gm PO DAILY [facility] Last Admin: 11/18/23 07:49 Dose: 17 gm Documented By: ANJEL Sodium Chloride (0.9 % Sodium Chloride Flush 3 Ml Syringe) 3 ml IVFLUSH QSHIFT [facility] Last Admin: 11/18/23 07:49 Dose: 3 ml Documented By: ANJEL Tamsulosin HCl (Tamsulosin Hcl 0.4 Mg Capsule) 0.4 mg PO BEDTIME [facility] Last Admin: 11/17/23 23:08 Dose: 0.4 mg Documented By: MAGDA Temazepam (Temazepam 15 Mg Capsule) 15 mg PO BEDTIME ORAL Vitamin D (Cholecalciferol (Vitamin D3) 25 Mcg Tablet) 50 mcg PO DAILY ORAL Last Admin: 11/18/23 07:47 Dose: 50 mcg Documented By: IZAOC Labs 11/18/23 Unknown 11/18/23 04:49 Labs: Laboratory Results - last 24 hr 11/17/23 11/17/23 11/17/23 13:24 17:13 17:50 MCV 87.0 MCH 29.7 MCHC 34.2 RDW 14.6 Plt Count 200 MPV 10.0 Immature Gran % (Auto) Neut % (Auto) Lymph % (Auto) [place] % (Auto) Eos % (Auto) Baso % (Auto) Lymph # (Auto) [place] # (Auto) Eos # (Auto) Baso # (Auto) Abs Immat Gran (auto) Absolute Neuts (auto) Absolute Nucleated RBC 0.000 Nucleated RBC % (auto) 0.0 O2 Saturation ABG pH at Pt Temp ABG pCO2 at Pt Temp ABG pO2 at Pt Temp ABG HCO3 ABG Base Excess (Actual) Anion Gap Estim Creat Clear Calc Estimated GFR POC Glucose 178 H 174 H Random Glucose Lactic Acid Calcium Total Bilirubin AST ALT Alkaline Phosphatase Troponin I High Sens Total Protein Albumin Blood Type Antibody Screen Crossmatch 11/17/23 11/18/23 11/18/23 23:09 00:16 00:30 MCV MCH MCHC RDW Plt Count MPV Immature Gran % (Auto) Neut % (Auto) Lymph % (Auto) [place] % (Auto) Eos % (Auto) Baso % (Auto) Lymph # (Auto) [place] # (Auto) Eos # (Auto) Baso # (Auto) Abs Immat Gran (auto) Absolute Neuts (auto) Absolute Nucleated RBC Nucleated RBC % (auto) O2 Saturation 97.0 ABG pH at Pt Temp 7.52 H ABG pCO2 at Pt Temp 38 ABG pO2 at Pt Temp 79 L ABG HCO3 31 H ABG Base Excess (Actual) 8.1 Anion Gap Estim Creat Clear Calc Estimated GFR POC Glucose 122 H 139 H Random Glucose Lactic Acid Calcium Total Bilirubin AST ALT Alkaline Phosphatase Troponin I High Sens Total Protein Albumin Blood Type Antibody Screen Crossmatch 11/18/23 11/18/23 11/18/23 00:40 00:49 04:49 MCV 88.3 MCH 29.4 MCHC 33.3 RDW 14.4 Plt Count 155 L MPV 9.6 Immature Gran % (Auto) Neut % (Auto) Lymph % (Auto) [place] % (Auto) Eos % (Auto) Baso % (Auto) Lymph # (Auto) [place] # (Auto) Eos # (Auto) Baso # (Auto) Abs Immat Gran (auto) Absolute Neuts (auto) Absolute Nucleated RBC 0.000 Nucleated RBC % (auto) 0.0 O2 Saturation ABG pH at Pt Temp ABG pCO2 at Pt Temp ABG pO2 at Pt Temp ABG HCO3 ABG Base Excess (Actual) Anion Gap 9 L 10 L Estim Creat Clear Calc 63.5 69.7 Estimated GFR 58 > 60 POC Glucose Random Glucose 151 H 173 H Lactic Acid 1.1 Calcium 9.1 D 9.0 Total Bilirubin 0.3 AST 16 ALT 17 Alkaline Phosphatase 44 Troponin I High Sens Total Protein 5.1 L Albumin 3.0 L Blood Type Antibody Screen Crossmatch 11/18/23 11/18/23 11/18/23 07:18 08:36 Unknown MCV 85.7 MCH 29.4 MCHC 34.3 RDW 14.4 Plt Count 169 MPV 9.2 L Immature Gran % (Auto) 0.3 Neut % (Auto) 67.1 Lymph % (Auto) 17.8 L [place] % (Auto) 14.1 H Eos % (Auto) 0.5 Baso % (Auto) 0.2 Lymph # (Auto) 1.7 [place] # (Auto) 1.3 H Eos # (Auto) 0.1 Baso # (Auto) 0.0 Abs Immat Gran (auto) 0.03 Absolute Neuts (auto) 6.4 Absolute Nucleated RBC 0.000 Nucleated RBC % (auto) 0.0 O2 Saturation ABG pH at Pt Temp ABG pCO2 at Pt Temp ABG pO2 at Pt Temp ABG HCO3 ABG Base Excess (Actual) Anion Gap Estim Creat Clear Calc Estimated GFR POC Glucose 149 H Random Glucose Lactic Acid Calcium Total Bilirubin AST ALT Alkaline Phosphatase Troponin I High Sens 27.3 Total Protein Albumin Blood Type O Positive Antibody Screen NEGATIVE Crossmatch See Detail Microbiology Microbiology Results: Microbiology 11/16/23 19:56 Urine Culture - Preliminary Urine clean catch - Urine covarrubias top No growth to date. Assessment and Plan (1) Acute asthma exacerbation: Status: Acute (2) Gross hematuria: Status: Acute (3) Urinary retention: Status: Acute Plan Emory Cui is a 73 years old man admitted with shortness of breath, chest tightness of one-week duration and inability to urinate associated with abdominal pain of 1 day duration: CT abdomen showed distended urinary bladder with blood products, bilateral renal collecting system and ureteral prominence extending to urinary bladder, significant prostate gland hypertrophy, diverticulosis of descending colon, stable low-density right adrenal lesion. Acute Urinary retention associated with gross hematuria; Likely related to BPH, urinalysis showed no bacteria but urine was noted to be cloudy. S/p indwelling urinary catheter placement and bladder irrigation by Urology several clots were irrigated out, continue CBI Hold aspirin. Continue tamsulosin. Repeat hematocrit stable, follow CBC closely Continue IV ceftriaxone empirically and follow urine culture . Being followed by Urology. Acute toxic metabolic encephalopathy Likely due to polypharmacy now resolved, normal blood sugars, stable renal function Patient on multiple medications for mood disorder including bupropion, Cymbalta, Neurontin, Restoril, Seroquel, baclofen Seroquel discontinued, dose of Restoril reduced to 15 mg from home dose of 30 mg Will DC IV Dilaudid Follow clinical course Acute on chronic blood-loss anemia due to hematuria Transfuse 1 unit of packed RBC since patient is symptomatic with lightheadedness dizziness,, follow CBC Acute exacerbation of mild intermittent asthma , cont. IV steroids, DuoNeb updraft, Continue Symbicort or alternative, fluticasone, Claritin and montelukast. Acute kidney injury likely due to urinary retention , renal function returned to baseline continue to hold Lasix , avoid hypotension. Type 2 diabetes mellitus. stable blood sugars , will hold metformin follow blood sugars and adjusted insulin sliding scale. Obstructive sleep apnea. Not using CPAP at home /placed on cpap last night due to acute encephalopathy, ABGs did not show hypercapnia. Essential hypertension. Noted to have significant drop in blood pressure last night, Continue metoprolol, hold hydralazine and Imdur , change dose of clonidine to 0.1 mg initially noted to have elevated blood pressure , follow BP closely Hyperlipidemia. Continue atorvastatin. Depression/mood disorder. Continue trazodone , duloxetine, bupropion. Hypothyroidism Continue levothyroxine. Obesity due to excess calories. BMI 31.8 kg/m2. Recommend low-calorie diet . DVT prophylaxis: SCDs Code status: Full Patient will need continued inpatient hospitalization for urinary retention and gross hematuria treatment, requiring blood transfusion close H&H monitoring and follow-up by Urology. Quality Stroke Does the patient have a stroke diagnosis?: No VTE Prior VTE?: No VTE Risk Level:: Medical - moderate - high VTE Device Contraindication: N/A - Device Ordered VTE Drug Contraindication: Treatment Not Indicated
[2023-11-18 11:28] LABS: Glucose, Whole Blood 136 mg/dL (60-115)
--- NOTE | 2023-11-18 14:38 | PM.EVENT ---
Event Note Date of Service: 11/18/23 Event Note: Due to polypharmacy spoke with pharmacy for med reconciliation It seems that patient temazepam has not been renewed for 1 year Therefore will discontinue temazepam Patient awake alert now and provide history of recurrent falls at home likely due to multiple sedative medications/as per patient he has been taking all medications at home Patient denies muscle spasm and is on baclofen 10 mg t.i.d. will reduce dose of baclofen to 5 mg t.i.d. Seroquel 100 mg held for tonight Will resume Seroquel low-dose if patient more awake alert, Will avoid narcotics Patient placed on CPAP at bedtime, he is noncompliant with CPAP at home Blood pressure trending up since hydralazine 100 mg t.i.d. and isosorbide are held, and dose of clonidine reduced to 0.1 mg from 0.2 mg at bedtime Will follow BP closely and reintroduce antihypertensives as per BP Med changes Temazepam discontinued Baclofen dose reduced to 5 mg t.i.d. Seroquel, hydralazine and hydralazine are on hold Dose of clonidine reduced to 0.1 mg Will follow clinical course and adjust medications accordingly. Time Spent With Patient Time: Total time managing care of this patient today ____ minutes.
[2023-11-18] MEDS: Baclofen 10 MG TABLET 5 MG PO ×2 (15:12→20:45)
[2023-11-18] MEDS: Acetaminophen 325 MG TABLET 975 MG PO ×2 (15:13→22:21)
[2023-11-18 16:48] LABS: Glucose, Whole Blood 168 mg/dL (60-115)
[2023-11-18] MEDS: Insulin Lispro 100 UNIT/ML 3 ML VIAL SUBCUT (16:48)
--- NOTE | 2023-11-18 19:28 | PM.EVENT ---
Event Note Date of Service: 11/18/23 Event Note: 12:34 and 12:35 - patient had hypotension 71/33 and 80/39 with SIRS criteria secondary to oversedation and severe LUCA. No sepsis suspected. Time Spent With Patient Time: Total time managing care of this patient today ____ minutes.
[2023-11-18] MEDS: cefTRIAXone sodium 1 GM in 0.9 % Sodium Chloride 50 ML IV (20:44)
[2023-11-18] MEDS: cloNIDine HCL 0.1 MG TABLET PO (20:45)
[2023-11-18] MEDS: Tamsulosin HCL 0.4 MG CAPSULE PO (20:45)
[2023-11-18] MEDS: Montelukast Sodium 10 MG TABLET PO (20:45)
[2023-11-18 21:32] LABS: Glucose, Whole Blood 101 mg/dL (60-115)
[2023-11-19] VITALS (12 sets, daily range): BP systolic 142–190; BP diastolic 67–98; PULSE 67–84; RESP 16–20; TEMP 36.5–37.3; O2SAT 93–98
[2023-11-19] MEDS: HYDROmorphone HCl 1 MG/ML SYRINGE IVPUSH (00:02)
[2023-11-19] MEDS: HYDROmorphone HCl 2 MG/ML VIAL IVPUSH (01:14)
[2023-11-19] MEDS: Ketorolac Tromethamine 15 MG/ML VIAL IVPUSH (01:14)
[2023-11-19] MEDS: Levothyroxine Sodium 75 MCG TABLET PO (05:55)
[2023-11-19 07:12] LABS: Hematocrit 30.2 % (42.0-52.0); Hemoglobin 10.2 g/dl (14.0-18.0); Mean Corpuscular HGB Conc 33.8 g/dl (31.0-36.0); Mean Corpuscular Hemoglobin 28.9 pg (27.0-33.0); Mean Corpuscular Volume 85.6 fL (80.0-98.0); Mean Platelet Volume 9.4 fL (9.4-12.4); Platelet Count 159 X10*3/uL (160-400); Red Blood Count 3.53 X10*6/uL (4.60-5.80); Red Cell Distribution Width 14.6 % (11.0-16.0); White Blood Count 8.2 X10*3/uL (4.8-10.8)
[2023-11-19 07:29] LABS: Anion Gap 13 (12-20); Blood Urea Nitrogen 15 mg/dL (9-16); Calcium 9.4 mg/dL (8.4-10.2); Carbon Dioxide 25 mmol/L (22-29); Chloride 105 mmol/L (96-108); Estimated Glomerular Filt Rate > 60; Glucose Random 129 mg/dL (60-115); Sodium 139 mmol/L (135-145)
[2023-11-19 07:30] LABS: Glucose, Whole Blood 113 mg/dL (60-115)
[2023-11-19] MEDS: Fluticasone/Vilanterol 200/25 BLST.W.DEV 1 PUFF INHALE (07:44)
--- NOTE | 2023-11-19 08:06 | HO.PM.IMPN ---
Subjective Subjective Date of Service: 11/19/23 Interval History: Seen in follow-up for urinary retention, gross hematuria Interval history: No complaints currently. Reports last night was reporting poor sleep and was very agitated attempted to pull out [address] way with subsequent gross hematuria/clots which were manually irrigated by nursing. CBI continued, now with light pink output. Answering questions appropriately Review of Systems Review of Systems: Yes all other systems are reviewed and are negative Physical Exam Vital Signs: Vital Signs: Last Vital Signs Temp 98.7 F 11/19/23 07:52 Pulse 76 11/19/23 07:52 Resp 20 11/19/23 07:52 BP 142/88 H 11/19/23 07:52 Pulse Ox 97 11/19/23 07:52 O2 Del Method CPAP 11/19/23 07:52 O2 Flow Rate 11/19/23 03:56 BMI result Body Mass Index 31.8 Constitutional - Awake and Alert, No apparent distress Eyes - PERRLA, EOMI Cardiovascular - S1S2, RRR, No edema Respiratory - Normal lung expansion, Normal respiratory effort, No respiratory distress, CTA bilaterally Gastrointestinal - NT / ND; +BS; No rebound or guarding - CBI running with light pink output, no clots at this time Extremities - no calf tenderness bilaterally, no swelling Skin - Warm/Dry Neurological - Alert & oriented x3 Psychological - Appropriate affect Objective Data Active Medications Acetaminophen (Acetaminophen 325 Mg Tablet) 975 mg PO Q6H PRN PRN Reason: mild pain, headache or fever Last Admin: 11/18/23 22:21 Dose: 975 mg Documented By: SILVERIO Albuterol Sulfate (Albuterol Sulfate (0.083%) 2.5 Mg/3 Ml Vial.Neb) 2.5 mg INHALE Q2H PRN PRN Reason: Shortness of Breath/Wheezing Atorvastatin Calcium (Atorvastatin Calcium 40 Mg Tablet) 40 mg PO DAILY [facility] Last Admin: 11/18/23 07:47 Dose: 40 mg Documented By: ANJEL Baclofen (Baclofen 10 Mg Tablet) 5 mg PO TID [facility] Last Admin: 11/18/23 20:45 Dose: 5 mg Documented By: SILVERIO Comments: RN cut pill in 1/2 with pill cutter, for 5mg dose per order Bupropion HCl (Bupropion Hcl Xl 300 Mg Tab.Er.24h) 300 mg PO DAILY [facility] Last Admin: 11/18/23 07:48 Dose: 300 mg Documented By: ANJEL Clonidine HCl (Clonidine Hcl 0.1 Mg Tablet) 0.1 mg PO BEDTIME [facility]; Protocol Last Admin: 11/18/23 20:45 Dose: 0.1 mg Documented By: SILVERIO Comments: provider aware of patient's blood pressure Docusate Sodium (Docusate Sodium 100 Mg Capsule) 100 mg PO BID [facility] Last Admin: 11/18/23 20:45 Dose: 100 mg Documented By: SILVERIO Duloxetine HCl (Duloxetine Hcl 60 Mg Capsule.) 120 mg PO DAILY [facility] Last Admin: 11/18/23 07:47 Dose: 120 mg Documented By: ANJEL Ferrous Sulfate (Ferrous Sulfate 324 Mg Tablet.) 324 mg PO BID [facility] Last Admin: 11/18/23 20:45 Dose: 324 mg Documented By: SILVERIO Fluticasone Propionate (Fluticasone Propionate Nasal 16 Gm [place]) 2 spray NOSTRIL-B DAILY [facility] Last Admin: 11/18/23 07:50 Dose: 2 spray Documented By: ANJEL Fluticasone/Vilanterol (Fluticasone/Vilanterol 200/25 Blst.W.Dev) 1 puff INHALE RDAILY [facility] Last Admin: 11/19/23 07:44 Dose: 1 puff Documented By: SILVIA Gabapentin (Gabapentin 100 Mg Capsule) 100 mg PO DAILY [facility] Last Admin: 11/18/23 07:48 Dose: 100 mg Documented By: ANJEL Glucose (Glucose Gel 15 Gm Gel..Gram.) 15 gm PO Q15M PRN; Protocol PRN Reason: per Hypoglycemia Standing Ord. Hydromorphone HCl (Hydromorphone Hcl 0.5 Mg/0.5 Ml Syringe) 1 mg IVPUSH Q3H PRN; Protocol PRN Reason: Pain, Severe (Pain Scale 7-10) Ceftriaxone Sodium 1 gm/ (Sodium Chloride) 50 mls @ 100 mls/hr IV Q24H [facility] Last Infusion: 11/18/23 21:30 Dose: Infused Documented By: SILVERIO Dextrose (D10) 250 mls @ 750 mls/hr IV Q15M PRN; Protocol PRN Reason: per Hypoglycemia Standing Ord. Insulin Human Lispro (Insulin Lispro 100 Unit/Ml 3 Ml Vial) 0 unit SUBCUT QIDACHS [facility]; Protocol Last Admin: 11/19/23 07:55 Dose: Not Given Documented By: ALIA Non-Admin Reason: No Insulin Coverage Levothyroxine Sodium (Levothyroxine Sodium 75 Mcg Tablet) 75 mcg PO DAILY@0600 [facility] Last Admin: 11/19/23 05:55 Dose: 75 mcg Documented By: SILVERIO Loratadine (Loratadine 10 Mg Tablet) 10 mg PO DAILY [facility] Last Admin: 11/18/23 07:47 Dose: 10 mg Documented By: ANJEL Meclizine HCl (Meclizine Hcl 25 Mg Tablet) 25 mg PO TID PRN PRN Reason: Vertigo Metoprolol Succinate (Metoprolol Succinate Er 100 Mg Tab.Er.24h) 200 mg PO DAILY [facility]; Protocol Last Admin: 11/18/23 07:48 Dose: 200 mg Documented By: ANJEL Montelukast Sodium (Montelukast Sodium 10 Mg Tablet) 10 mg PO BEDTIME [facility] Last Admin: 11/18/23 20:45 Dose: 10 mg Documented By: SILVERIO Multivitamins/Vitamin C (Multivitamin Tablet) 1 tab PO DAILY [facility] Last Admin: 11/18/23 07:46 Dose: 1 tab Documented By: ANJEL Nitroglycerin (Nitroglycerin 0.4 Mg Tab.Subl) 0.4 mg SUBLINGUAL Q5M PRN PRN Reason: Chest Pain Polyethylene Glycol (Polyethylene Glycol 3350 17 Gm Powd.Pack) 17 gm PO DAILY [facility] Last Admin: 11/18/23 07:49 Dose: 17 gm Documented By: ANJEL Sodium Chloride (0.9 % Sodium Chloride Flush 3 Ml Syringe) 3 ml IVFLUSH QSHIFT [facility] Last Admin: 11/18/23 20:46 Dose: 3 ml Documented By: SILVERIO Tamsulosin HCl (Tamsulosin Hcl 0.4 Mg Capsule) 0.4 mg PO BEDTIME [facility] Last Admin: 11/18/23 20:45 Dose: 0.4 mg Documented By: SILVERIO Vitamin D (Cholecalciferol (Vitamin D3) 25 Mcg Tablet) 50 mcg PO DAILY [facility] Last Admin: 11/18/23 07:47 Dose: 50 mcg Documented By: IZAOC Labs 11/19/23 06:24 11/19/23 06:24 Labs: Laboratory Results - last 24 hr 11/18/23 11/18/23 11/18/23 08:36 11:19 16:44 MCV MCH MCHC RDW Plt Count MPV Absolute Nucleated RBC Nucleated RBC % (auto) Anion Gap Estim Creat Clear Calc Estimated GFR POC Glucose 136 H 168 H Random Glucose Calcium Blood Type O Positive Antibody Screen NEGATIVE Crossmatch See Detail 11/18/23 11/19/23 11/19/23 21:17 06:24 07:26 MCV 85.6 MCH 28.9 MCHC 33.8 RDW 14.6 Plt Count 159 L MPV 9.4 Absolute Nucleated RBC 0.000 Nucleated RBC % (auto) 0.0 Anion Gap 13 Estim Creat Clear Calc 73.0 Estimated GFR > 60 POC Glucose 101 113 Random Glucose 129 H Calcium 9.4 Blood Type Antibody Screen Crossmatch Microbiology Microbiology Results: Microbiology 11/16/23 19:56 Urine Culture - Final Urine clean catch - Urine covarrubias top No growth. Assessment and Plan (1) Acute asthma exacerbation: Status: Acute (2) Gross hematuria: Status: Acute (3) Urinary retention: Status: Acute Plan Emory Cui is a 73 years old man admitted with shortness of breath, chest tightness of one-week duration and inability to urinate associated with abdominal pain of 1 day duration: CT abdomen showed distended urinary bladder with blood products, bilateral renal collecting system and ureteral prominence extending to urinary bladder, significant prostate gland hypertrophy, diverticulosis of descending colon, stable low-density right adrenal lesion. Acute Urinary retention associated with gross hematuria; Likely related to BPH, urinalysis showed no bacteria but urine was noted to be cloudy. S/p indwelling urinary catheter placement and bladder irrigation by Urology several clots were irrigated out, continue CBI Hold aspirin. Continue tamsulosin Received 2 units packed red blood cells 4/25. H/H this morning significantly 10.2/30.2% Urine culture negative, discontinue ceftriaxone Being followed by Urology. -follow blood counts Acute toxic metabolic encephalopathy- resolved Likely due to polypharmacy now resolved, normal blood sugars, stable renal function Patient on multiple medications for mood disorder including bupropion, Cymbalta, Neurontin, Restoril, Seroquel, baclofen Seroquel discontinued, dose of Restoril reduced to 15 mg from home dose of 30 mg Will DC IV Dilaudid Follow clinical course Acute on chronic blood-loss anemia due to hematuria- Transfuse 2 unit of packed RBC since patient is symptomatic with lightheadedness dizziness,, follow CBC -improved as above Acute exacerbation of mild intermittent asthma , cont. IV steroids, DuoNeb updraft, Continue Symbicort or alternative, fluticasone, Claritin and montelukast. Acute kidney injury likely due to urinary retention , renal function returned to baseline continue to hold Lasix , avoid hypotension. Type 2 diabetes mellitus. stable blood sugars , will hold metformin follow blood sugars and adjusted insulin sliding scale. Obstructive sleep apnea. Not using CPAP at home /placed on cpap last night due to acute encephalopathy, ABGs did not show hypercapnia. Essential hypertension. Noted to have significant drop in blood pressure last night, Continue metoprolol, hold hydralazine and Imdur , change dose of clonidine to 0.1 mg initially noted to have elevated blood pressure , follow BP closely Hyperlipidemia. Continue atorvastatin. Depression/mood disorder. Continue trazodone , duloxetine, bupropion. Hypothyroidism Continue levothyroxine. Obesity due to excess calories. BMI 31.8 kg/m2. Recommend low-calorie diet . DVT prophylaxis: SCDs Code status: Full Patient will need continued inpatient hospitalization for urinary retention and gross hematuria treatment, requiring blood transfusion close H&H monitoring and follow-up by Urology. Quality Stroke Does the patient have a stroke diagnosis?: No VTE Prior VTE?: No VTE Risk Level:: Medical - moderate - high VTE Device Contraindication: N/A - Device Ordered VTE Drug Contraindication: Treatment Not Indicated
[2023-11-19] MEDS: Multivitamin TABLET 1 TAB PO (08:18)
[2023-11-19] MEDS: DULoxetine HCl 60 MG CAPSULE.DR 120 MG PO (08:18)
[2023-11-19] MEDS: Metoprolol Succinate ER 100 MG TAB.ER.24H 200 MG PO (08:18)
[2023-11-19] MEDS: polyethylene glycoL 3350 17 GM POWD.PACK PO (08:18)
[2023-11-19] MEDS: buPROPion HCl XL 300 MG TAB.ER.24H PO (08:18)
[2023-11-19] MEDS: Gabapentin 100 MG CAPSULE PO (08:18)
[2023-11-19] MEDS: Cholecalciferol (Vitamin D3) 25 MCG TABLET 50 MCG PO (08:19)
[2023-11-19] MEDS: Loratadine 10 MG TABLET PO (08:19)
[2023-11-19] MEDS: Phenazopyridine HCL 100 MG TABLET PO (08:19)
[2023-11-19] MEDS: Docusate Sodium 100 MG CAPSULE PO ×2 (08:19→20:40)
[2023-11-19] MEDS: Atorvastatin Calcium 40 MG TABLET PO (08:19)
[2023-11-19] MEDS: Ferrous Sulfate 324 MG TABLET.DR PO ×2 (08:19→20:40)
[2023-11-19] MEDS: Baclofen 10 MG TABLET 5 MG PO ×3 (08:20→20:40)
[2023-11-19] MEDS: 0.9 % Sodium Chloride Flush 3 ML SYRINGE IVFLUSH ×3 (08:20→20:41)
[2023-11-19] MEDS: Fluticasone Propionate Nasal 16 GM SPRAY 2 SPRAY NOSTRIL-B (08:26)
--- NOTE | 2023-11-19 09:15 | MHC.CM.PN ---
CASE MANAGEMENT FOLLOWING FOR DC NEEDS.
--- NOTE | 2023-11-19 10:49 | MHC.CM.PN ---
PER MD ROUNDS, PLAN IS FOR UROLOGY FOLLOW UP NO PLAN FOR DC TODAY CASE MANAGEMENT CONTINUING TO FOLLOW.
[2023-11-19 11:09] LABS: Glucose, Whole Blood 213 mg/dL (60-115)
[2023-11-19] MEDS: Insulin Lispro 100 UNIT/ML 3 ML VIAL SUBCUT ×2 (11:39→22:34)
[2023-11-19 16:35] LABS: Glucose, Whole Blood 118 mg/dL (60-115)
[2023-11-19] MEDS: Tamsulosin HCL 0.4 MG CAPSULE PO (20:40)
[2023-11-19] MEDS: cloNIDine HCL 0.1 MG TABLET PO (20:41)
[2023-11-19] MEDS: Montelukast Sodium 10 MG TABLET PO (20:41)
[2023-11-19] MEDS: HYDROmorphone HCl 0.5 MG/0.5 ML SYRINGE 1 MG IVPUSH ×2 (20:42→23:59)
[2023-11-19 21:39] LABS: Glucose, Whole Blood 153 mg/dL (60-115)
[2023-11-20] VITALS (14 sets, daily range): BP systolic 148–190; BP diastolic 82–92; PULSE 68–86; RESP 16–20; TEMP 36.5–37; O2SAT 92–98
[2023-11-20] MEDS: amLODIPine Besylate 2.5 MG TABLET 7.5 MG PO ×2 (01:18→17:28)
[2023-11-20] MEDS: Acetaminophen 325 MG TABLET 975 MG PO (01:18)
[2023-11-20] MEDS: Levothyroxine Sodium 75 MCG TABLET PO (05:35)
[2023-11-20 07:10] LABS: MANUAL DIFF FLAG NO
[2023-11-20 07:14] LABS: Basophils Percent Auto 0.1 % (0-2); Eosinophils Absolute Auto 0.1 X10*3/uL (0.0-0.4); Eosinophils Percent Auto 1.3 % (0-4); Hematocrit 34.3 % (42.0-52.0); Hemoglobin 11.5 g/dl (14.0-18.0); Imm Gran Abs Auto 0.06 X10*3/uL (0.00-0.03); Imm Gran Pct Auto 0.9 % (0.0-0.4); Lymphocytes Absolute Auto 1.3 X10*3/uL (1.2-4.9); Lymphocytes Percent Auto 19.7 % (20-40); Mean Corpuscular HGB Conc 33.5 g/dl (31.0-36.0); Mean Corpuscular Hemoglobin 28.8 pg (27.0-33.0); Mean Platelet Volume 9.3 fL (9.4-12.4); Monocytes Absolute Auto 0.9 X10*3/uL (0.1-1.2); Monocytes Percent Auto 12.6 % (2-11); Neutrophils Absolute Auto 4.4 x10*3/uL (2.0-8.3); Neutrophils Percent Auto 65.4 % (45-73); Platelet Count 186 X10*3/uL (160-400); Red Blood Count 3.99 X10*6/uL (4.60-5.80); Red Cell Distribution Width 14.6 % (11.0-16.0); White Blood Count 6.8 X10*3/uL (4.8-10.8)
[2023-11-20 07:30] LABS: Glucose, Whole Blood 131 mg/dL (60-115)
[2023-11-20] MEDS: Fluticasone/Vilanterol 200/25 BLST.W.DEV 1 PUFF INHALE (07:34)
[2023-11-20 07:39] LABS: Anion Gap 14 (12-20); Blood Urea Nitrogen 12 mg/dL (9-16); Calcium 9.7 mg/dL (8.4-10.2); Carbon Dioxide 28 mmol/L (22-29); Chloride 103 mmol/L (96-108); Creatinine Clr Calc Pharmacy 82.2; Estimated Glomerular Filt Rate > 60; Glucose Random 138 mg/dL (60-115); Potassium 3.7 mmol/L (3.3-5.1); Sodium 141 mmol/L (135-145)
[2023-11-20] MEDS: polyethylene glycoL 3350 17 GM POWD.PACK PO (07:52)
[2023-11-20] MEDS: Cholecalciferol (Vitamin D3) 25 MCG TABLET 50 MCG PO (07:52)
[2023-11-20] MEDS: Gabapentin 100 MG CAPSULE PO (07:52)
[2023-11-20] MEDS: DULoxetine HCl 60 MG CAPSULE.DR 120 MG PO (07:52)
[2023-11-20] MEDS: Metoprolol Succinate ER 100 MG TAB.ER.24H 200 MG PO (07:52)
[2023-11-20] MEDS: buPROPion HCl XL 300 MG TAB.ER.24H PO (07:52)
[2023-11-20] MEDS: Ferrous Sulfate 324 MG TABLET.DR PO ×2 (07:53→19:58)
[2023-11-20] MEDS: Multivitamin TABLET 1 TAB PO (07:53)
[2023-11-20] MEDS: Docusate Sodium 100 MG CAPSULE PO ×2 (07:53→19:58)
[2023-11-20] MEDS: Baclofen 10 MG TABLET 5 MG PO ×3 (07:53→19:56)
[2023-11-20] MEDS: Loratadine 10 MG TABLET PO (07:53)
[2023-11-20] MEDS: Atorvastatin Calcium 40 MG TABLET PO (07:53)
[2023-11-20] MEDS: 0.9 % Sodium Chloride Flush 3 ML SYRINGE IVFLUSH ×3 (07:54→19:59)
[2023-11-20] MEDS: Fluticasone Propionate Nasal 16 GM SPRAY 2 SPRAY NOSTRIL-B (08:24)
--- NOTE | 2023-11-20 10:09 | HO.PM.IMPN ---
Subjective Subjective Date of Service: 11/20/23 Interval History: Seen and evaluated this morning Hematuria clearing Stable H&H more alert and interactive. Review of Systems Review of Systems: Yes all other systems are reviewed and are negative Physical Exam Vital Signs: Vital Signs: Last Vital Signs Temp 97.7 F 11/20/23 07:53 Pulse 77 11/20/23 07:53 Resp 20 11/20/23 07:53 BP 148/85 H 11/20/23 07:53 Pulse Ox 92 11/20/23 07:53 O2 Del Method Room Air 11/20/23 07:53 O2 Flow Rate 11/19/23 03:56 BMI result Body Mass Index 31.8 Const: Other: Constitutional : Awake, interactive, not in distress Neck : Normal inspection, Supple Cardiovascular : RRR, no JVP, no lower extremity edema Respiratory : good bilateral air entry, no crackles, wheezes or rhonchi Gastrointestinal: soft, lax, Normal bowel sounds, Non tender Skin : Warm, Dry Urology: clear pinkish urine with no clots Neurological : Alert & oriented x3, No focal deficit Objective Data Active Medications Acetaminophen (Acetaminophen 325 Mg Tablet) 975 mg PO Q6H PRN PRN Reason: mild pain, headache or fever Last Admin: 11/20/23 01:18 Dose: 975 mg Documented By: SHELBY Albuterol Sulfate (Albuterol Sulfate (0.083%) 2.5 Mg/3 Ml Vial.Neb) 2.5 mg INHALE Q2H PRN PRN Reason: Shortness of Breath/Wheezing Amlodipine Besylate (Amlodipine Besylate 2.5 Mg Tablet) 7.5 mg PO DAILY@1700 [facility]; Protocol Last Admin: 11/20/23 01:18 Dose: 7.5 mg Documented By: SHELBY Atorvastatin Calcium (Atorvastatin Calcium 40 Mg Tablet) 40 mg PO DAILY [facility] Last Admin: 11/20/23 07:53 Dose: 40 mg Documented By: ABRAHAN Baclofen (Baclofen 10 Mg Tablet) 5 mg PO TID [facility] Last Admin: 11/20/23 07:53 Dose: 5 mg Documented By: ABRAHAN Bupropion HCl (Bupropion Hcl Xl 300 Mg Tab.Er.24h) 300 mg PO DAILY [facility] Last Admin: 11/20/23 07:52 Dose: 300 mg Documented By: ABRAHAN Clonidine HCl (Clonidine Hcl 0.1 Mg Tablet) 0.1 mg PO BEDTIME [facility]; Protocol Last Admin: 11/19/23 20:41 Dose: 0.1 mg Documented By: SHELBY Docusate Sodium (Docusate Sodium 100 Mg Capsule) 100 mg PO BID [facility] Last Admin: 11/20/23 07:53 Dose: 100 mg Documented By: ABRAHAN Duloxetine HCl (Duloxetine Hcl 60 Mg Capsule.) 120 mg PO DAILY [facility] Last Admin: 11/20/23 07:52 Dose: 120 mg Documented By: ABRAHAN Ferrous Sulfate (Ferrous Sulfate 324 Mg Tablet.) 324 mg PO BID [facility] Last Admin: 11/20/23 07:53 Dose: 324 mg Documented By: ABRAHAN Fluticasone Propionate (Fluticasone Propionate Nasal 16 Gm [place]) 2 spray NOSTRIL-B DAILY [facility] Last Admin: 11/20/23 08:24 Dose: 2 spray Documented By: ABRAHAN Fluticasone/Vilanterol (Fluticasone/Vilanterol 200/25 Blst.W.Dev) 1 puff INHALE RDAILY [facility] Last Admin: 11/20/23 07:34 Dose: 1 puff Documented By: NANCY Gabapentin (Gabapentin 100 Mg Capsule) 100 mg PO DAILY [facility] Last Admin: 11/20/23 07:52 Dose: 100 mg Documented By: ABRAHAN Glucose (Glucose Gel 15 Gm Gel..Gram.) 15 gm PO Q15M PRN; Protocol PRN Reason: per Hypoglycemia Standing Ord. Guaifenesin (Guaifenesin 200 Mg/10 Ml 10 Ml Liquid) 10 ml PO Q6H PRN PRN Reason: Cough Hydromorphone HCl (Hydromorphone Hcl 0.5 Mg/0.5 Ml Syringe) 1 mg IVPUSH Q3H PRN; Protocol PRN Reason: Pain, Severe (Pain Scale 7-10) Last Admin: 11/19/23 23:59 Dose: 1 mg Documented By: SHELBY Dextrose (D10) 250 mls @ 750 mls/hr IV Q15M PRN; Protocol PRN Reason: per Hypoglycemia Standing Ord. Insulin Human Lispro (Insulin Lispro 100 Unit/Ml 3 Ml Vial) 0 unit SUBCUT QIDACHS [facility]; Protocol Last Admin: 11/20/23 08:21 Dose: Not Given Documented By: ABRAHAN Non-Admin Reason: No Insulin Coverage Levothyroxine Sodium (Levothyroxine Sodium 75 Mcg Tablet) 75 mcg PO DAILY@0600 [facility] Last Admin: 11/20/23 05:35 Dose: 75 mcg Documented By: SHELBY Loratadine (Loratadine 10 Mg Tablet) 10 mg PO DAILY [facility] Last Admin: 11/20/23 07:53 Dose: 10 mg Documented By: ABRAHAN Meclizine HCl (Meclizine Hcl 25 Mg Tablet) 25 mg PO TID PRN PRN Reason: Vertigo Metoprolol Succinate (Metoprolol Succinate Er 100 Mg Tab.Er.24h) 200 mg PO DAILY [facility]; Protocol Last Admin: 11/20/23 07:52 Dose: 200 mg Documented By: ABRAHAN Montelukast Sodium (Montelukast Sodium 10 Mg Tablet) 10 mg PO BEDTIME [facility] Last Admin: 11/19/23 20:41 Dose: 10 mg Documented By: SHELBY Multivitamins/Vitamin C (Multivitamin Tablet) 1 tab PO DAILY [facility] Last Admin: 11/20/23 07:53 Dose: 1 tab Documented By: ABRAHAN Nitroglycerin (Nitroglycerin 0.4 Mg Tab.Subl) 0.4 mg SUBLINGUAL Q5M PRN PRN Reason: Chest Pain Polyethylene Glycol (Polyethylene Glycol 3350 17 Gm Powd.Pack) 17 gm PO DAILY [facility] Last Admin: 11/20/23 07:52 Dose: 17 gm Documented By: ABRAHAN Sodium Chloride (0.9 % Sodium Chloride Flush 3 Ml Syringe) [facility] Last Admin: 11/20/23 07:54 Dose: 3 ml Documented By: ABRAHAN Tamsulosin HCl (Tamsulosin Hcl 0.4 Mg Capsule) 0.4 mg PO BEDTIME [facility] Last Admin: 11/19/23 20:40 Dose: 0.4 mg Documented By: SHELBY Vitamin D (Cholecalciferol (Vitamin D3) 25 Mcg Tablet) 50 mcg PO DAILY [facility] Last Admin: 11/20/23 07:52 Dose: 50 mcg Documented By: ABRAHAN Labs 11/20/23 06:45 04/27/24 06:45 Labs: Laboratory Results - last 24 hr 11/19/23 11/19/23 11/19/23 10:52 16:24 21:35 MCV MCH MCHC RDW Plt Count MPV Immature Gran % (Auto) Neut % (Auto) Lymph % (Auto) [place] % (Auto) Eos % (Auto) Baso % (Auto) Lymph # (Auto) [place] # (Auto) Eos # (Auto) Baso # (Auto) Abs Immat Gran (auto) Absolute Neuts (auto) Absolute Nucleated RBC Nucleated RBC % (auto) Anion Gap Estim Creat Clear Calc Estimated GFR POC Glucose 213 H 118 H 153 H Random Glucose Calcium 11/20/23 11/20/23 06:45 07:24 MCV 86.0 MCH 28.8 MCHC 33.5 RDW 14.6 Plt Count 186 MPV 9.3 L Immature Gran % (Auto) 0.9 H Neut % (Auto) 65.4 Lymph % (Auto) 19.7 L [place] % (Auto) 12.6 H Eos % (Auto) 1.3 Baso % (Auto) 0.1 Lymph # (Auto) 1.3 [place] # (Auto) 0.9 Eos # (Auto) 0.1 Baso # (Auto) 0.0 Abs Immat Gran (auto) 0.06 H Absolute Neuts (auto) 4.4 Absolute Nucleated RBC 0.000 Nucleated RBC % (auto) 0.0 Anion Gap 14 Estim Creat Clear Calc 82.2 Estimated GFR > 60 POC Glucose 131 H Random Glucose 138 H Calcium 9.7 Assessment and Plan (1) Acute asthma exacerbation: Status: Acute (2) Gross hematuria: Status: Acute Plan Emory Cui is a 73 years old man admitted with shortness of breath, chest tightness of one-week duration and inability to urinate associated with abdominal pain of 1 day duration: CT abdomen showed distended urinary bladder with blood products, bilateral renal collecting system and ureteral prominence extending to urinary bladder, significant prostate gland hypertrophy, diverticulosis of descending colon, stable low-density right adrenal lesion. Acute Urinary retention associated with gross hematuria; Likely related to BPH, urinalysis showed no bacteria but urine was noted to be cloudy. Received 2 units packed red blood cells 11/17. H/H stable S/p indwelling urinary catheter placement and bladder irrigation by Urology several clots were irrigated out Hold CBI and monitor response Hold aspirin. Continue tamsulosin Being followed by Urology. Acute toxic metabolic encephalopathy- resolved Likely due to polypharmacy now resolved, mood disorder on meds including bupropion, Cymbalta, Neurontin, Restoril, Seroquel, baclofen Seroquel discontinued, dose of Restoril reduced to 15 mg from home dose of 30 mg Follow clinical course Acute on chronic blood-loss anemia due to hematuria- Transfuse 2 unit of packed RBC since patient is symptomatic with lightheadedness dizziness,, follow CBC Acute exacerbation of mild intermittent asthma PO steroids, DuoNeb updraft, Continue Symbicort or alternative, fluticasone, Claritin and montelukast. Acute kidney injury likely due to urinary retention , renal function returned to baseline restart Lasix , avoid hypotension. Type 2 diabetes mellitus. stable blood sugars , will hold metformin follow blood sugars and adjusted insulin sliding scale. Obstructive sleep apnea. Not using CPAP at home /placed on cpap last night due to acute encephalopathy, ABGs did not show hypercapnia. Essential hypertension. Noted to have significant drop in blood pressure last night, Continue metoprolol, hold hydralazine and Imdur , change dose of clonidine to 0.1 mg initially noted to have elevated blood pressure , follow BP closely Hyperlipidemia. Continue atorvastatin. Depression/mood disorder. Continue trazodone , duloxetine, bupropion. Hypothyroidism Continue levothyroxine. Obesity due to excess calories. BMI 31.8 kg/m2. Recommend low-calorie diet . DVT prophylaxis: SCDs Code status: Full Patient will need continued inpatient hospitalization for urinary retention and gross hematuria treatment on CBI pending clinical improvement Quality Stroke Does the patient have a stroke diagnosis?: No VTE Prior VTE?: No VTE Risk Level:: Medical - moderate - high VTE Device Contraindication: N/A - Device Ordered VTE Drug Contraindication: Treatment Not Indicated
[2023-11-20 11:25] LABS: Glucose, Whole Blood 218 mg/dL (60-115)
[2023-11-20] MEDS: Insulin Lispro 100 UNIT/ML 3 ML VIAL SUBCUT ×3 (12:59→20:03)
[2023-11-20] MEDS: predniSONE 20 MG TABLET 40 MG PO (13:00)
[2023-11-20] MEDS: Furosemide 20 MG TABLET PO (13:01)
[2023-11-20 16:06] LABS: Glucose, Whole Blood 161 mg/dL (60-115)
[2023-11-20] MEDS: Montelukast Sodium 10 MG TABLET PO (19:58)
[2023-11-20] MEDS: cloNIDine HCL 0.1 MG TABLET PO (19:58)
[2023-11-20] MEDS: Tamsulosin HCL 0.4 MG CAPSULE PO (19:58)
[2023-11-20 20:02] LABS: Glucose, Whole Blood 217 mg/dL (60-115)
[2023-11-20] MEDS: oxyCODONE HCl Immed Release 5 MG TABLET PO (20:02)
[2023-11-21] VITALS (15 sets, daily range): BP systolic 166–193; BP diastolic 79–94; PULSE 74–86; RESP 16–20; TEMP 36.5–37.2; O2SAT 92–96
[2023-11-21] MEDS: hydrALAZINE HCl 50 MG TABLET PO (05:05)
[2023-11-21] MEDS: Levothyroxine Sodium 75 MCG TABLET PO (05:05)
[2023-11-21 06:01] LABS: Anion Gap 15 (12-20); Blood Urea Nitrogen 12 mg/dL (9-16); Calcium 9.8 mg/dL (8.4-10.2); Carbon Dioxide 24 mmol/L (22-29); Chloride 104 mmol/L (96-108); Creatinine Clr Calc Pharmacy 82.2; Estimated Glomerular Filt Rate > 60; Glucose Random 135 mg/dL (60-115); Potassium 4.3 mmol/L (3.3-5.1); Sodium 139 mmol/L (135-145)
[2023-11-21 07:13] LABS: Hemoglobin 11.8 g/dl (14.0-18.0); Mean Corpuscular HGB Conc 33.7 g/dl (31.0-36.0); Mean Corpuscular Hemoglobin 28.6 pg (27.0-33.0); Mean Platelet Volume 9.3 fL (9.4-12.4); Platelet Count 268 X10*3/uL (160-400); Red Blood Count 4.12 X10*6/uL (4.60-5.80); Red Cell Distribution Width 14.1 % (11.0-16.0); White Blood Count 8.4 X10*3/uL (4.8-10.8)
[2023-11-21 07:25] LABS: Glucose, Whole Blood 129 mg/dL (60-115)
[2023-11-21] MEDS: HYDROmorphone HCl 0.5 MG/0.5 ML SYRINGE IVPUSH (07:45)
[2023-11-21] MEDS: Multivitamin TABLET 1 TAB PO (07:47)
[2023-11-21] MEDS: Furosemide 20 MG TABLET PO (07:47)
[2023-11-21] MEDS: Ferrous Sulfate 324 MG TABLET.DR PO ×2 (07:47→19:59)
[2023-11-21] MEDS: Docusate Sodium 100 MG CAPSULE PO ×2 (07:47→19:59)
[2023-11-21] MEDS: buPROPion HCl XL 300 MG TAB.ER.24H PO (07:48)
[2023-11-21] MEDS: predniSONE 20 MG TABLET 40 MG PO (07:48)
[2023-11-21] MEDS: Gabapentin 100 MG CAPSULE PO (07:48)
[2023-11-21] MEDS: Loratadine 10 MG TABLET PO (07:48)
[2023-11-21] MEDS: Cholecalciferol (Vitamin D3) 25 MCG TABLET 50 MCG PO (07:48)
[2023-11-21] MEDS: Metoprolol Succinate ER 100 MG TAB.ER.24H 200 MG PO (07:48)
[2023-11-21] MEDS: DULoxetine HCl 60 MG CAPSULE.DR 120 MG PO (07:49)
[2023-11-21] MEDS: Baclofen 10 MG TABLET 5 MG PO ×3 (07:49→19:57)
[2023-11-21] MEDS: Atorvastatin Calcium 40 MG TABLET PO (07:49)
[2023-11-21] MEDS: 0.9 % Sodium Chloride Flush 3 ML SYRINGE IVFLUSH ×3 (07:52→19:59)
[2023-11-21] MEDS: Fluticasone/Vilanterol 200/25 BLST.W.DEV 1 PUFF INHALE (07:59)
[2023-11-21] MEDS: hydrALAZINE HCl 50 MG TABLET 100 MG PO ×3 (08:27→19:59)
[2023-11-21 11:36] LABS: Glucose, Whole Blood 253 mg/dL (60-115)
--- NOTE | 2023-11-21 11:52 | HO.PM.IMPN ---
Subjective Subjective Date of Service: 11/21/23 Interval History: Seen and evaluated this morning Hematuria cleared Stable H&H more alert and interactive. Review of Systems Review of Systems: Yes all other systems are reviewed and are negative Physical Exam Vital Signs: Vital Signs: Last Vital Signs Temp 98.4 F 11/21/23 11:27 Pulse 77 11/21/23 11:27 Resp 16 11/21/23 11:27 BP 179/91 H 11/21/23 11:27 Pulse Ox 93 11/21/23 11:27 O2 Del Method Room Air 11/21/23 11:27 O2 Flow Rate 11/19/23 03:56 BMI result Body Mass Index 31.8 Const: Other: Constitutional : Awake, interactive, not in distress Neck : Normal inspection, Supple Cardiovascular : RRR, no JVP, no lower extremity edema Respiratory : good bilateral air entry, no crackles, wheezes or rhonchi Gastrointestinal: soft, lax, Normal bowel sounds, Non tender Skin : Warm, Dry Urology: clear yellow urine with no clots Neurological : Alert & oriented x3, No focal deficit Objective Data Active Medications Acetaminophen (Acetaminophen 325 Mg Tablet) 975 mg PO Q6H PRN PRN Reason: mild pain, headache or fever Last Admin: 11/20/23 01:18 Dose: 975 mg Documented By: SHELBY Albuterol Sulfate (Albuterol Sulfate (0.083%) 2.5 Mg/3 Ml Vial.Neb) 2.5 mg INHALE Q2H PRN PRN Reason: Shortness of Breath/Wheezing Amlodipine Besylate (Amlodipine Besylate 2.5 Mg Tablet) 7.5 mg PO DAILY@1700 ORAL; Protocol Last Admin: 11/20/23 17:28 Dose: 7.5 mg Documented By: ABRAHAN Atorvastatin Calcium (Atorvastatin Calcium 40 Mg Tablet) 40 mg PO DAILY [facility] Last Admin: 11/21/23 07:49 Dose: 40 mg Documented By: DAVID Baclofen (Baclofen 10 Mg Tablet) 5 mg PO TID [facility] Last Admin: 11/21/23 07:49 Dose: 5 mg Documented By: DAVID Bupropion HCl (Bupropion Hcl Xl 300 Mg Tab.Er.24h) 300 mg PO DAILY [facility] Last Admin: 11/21/23 07:48 Dose: 300 mg Documented By: DAVID Clonidine HCl (Clonidine Hcl 0.2 Mg Tablet) 0.2 mg PO BEDTIME [facility]; Protocol Docusate Sodium (Docusate Sodium 100 Mg Capsule) 100 mg PO BID [facility] Last Admin: 11/21/23 07:47 Dose: 100 mg Documented By: DAVID Duloxetine HCl (Duloxetine Hcl 60 Mg Capsule.) 120 mg PO DAILY [facility] Last Admin: 11/21/23 07:49 Dose: 120 mg Documented By: DAVID Ferrous Sulfate (Ferrous Sulfate 324 Mg Tablet.) 324 mg PO BID [facility] Last Admin: 11/21/23 07:47 Dose: 324 mg Documented By: DAVID Fluticasone Propionate (Fluticasone Propionate Nasal 16 Gm [place]) 2 spray NOSTRIL-B DAILY [facility] Last Admin: 11/20/23 08:24 Dose: 2 spray Documented By: ABRAHAN Fluticasone/Vilanterol (Fluticasone/Vilanterol 200/25 Blst.W.Dev) 1 puff INHALE RDAILY [facility] Last Admin: 11/21/23 07:59 Dose: 1 puff Documented By: NANCY Furosemide (Furosemide 20 Mg Tablet) 20 mg PO DAILY [facility]; Protocol Last Admin: 11/21/23 07:47 Dose: 20 mg Documented By: DAVID Gabapentin (Gabapentin 100 Mg Capsule) 100 mg PO DAILY [facility] Last Admin: 11/21/23 07:48 Dose: 100 mg Documented By: DAVID Glucose (Glucose Gel 15 Gm Gel..Gram.) 15 gm PO Q15M PRN; Protocol PRN Reason: per Hypoglycemia Standing Ord. Guaifenesin (Guaifenesin 200 Mg/10 Ml 10 Ml Liquid) 10 ml PO Q6H PRN PRN Reason: Cough Hydralazine HCl (Hydralazine Hcl 50 Mg Tablet) 100 mg PO TID [facility]; Protocol Last Admin: 11/21/23 08:27 Dose: 100 mg Documented By: DAVID Hydromorphone HCl (Hydromorphone Hcl 0.5 Mg/0.5 Ml Syringe) 0.5 mg IVPUSH Q4H PRN; Protocol PRN Reason: Pain, Severe (Pain Scale 7-10) Last Admin: 11/21/23 07:45 Dose: 0.5 mg Documented By: DAVID Dextrose (D10) 250 mls @ 750 mls/hr IV Q15M PRN; Protocol PRN Reason: per Hypoglycemia Standing Ord. Insulin Human Lispro (Insulin Lispro 100 Unit/Ml 3 Ml Vial) 0 unit SUBCUT QIDACHS [facility]; Protocol Last Admin: 11/21/23 07:27 Dose: Not Given Documented By: DAVID Non-Admin Reason: No Insulin Coverage Levothyroxine Sodium (Levothyroxine Sodium 75 Mcg Tablet) 75 mcg PO DAILY@0600 [facility] Last Admin: 11/21/23 05:05 Dose: 75 mcg Documented By: SHELBY Loratadine (Loratadine 10 Mg Tablet) 10 mg PO DAILY [facility] Last Admin: 11/21/23 07:48 Dose: 10 mg Documented By: DAVID Meclizine HCl (Meclizine Hcl 25 Mg Tablet) 25 mg PO TID PRN PRN Reason: Vertigo Metoprolol Succinate (Metoprolol Succinate Er 100 Mg Tab.Er.24h) 200 mg PO DAILY [facility]; Protocol Last Admin: 11/21/23 07:48 Dose: 200 mg Documented By: DAVID Montelukast Sodium (Montelukast Sodium 10 Mg Tablet) 10 mg PO BEDTIME [facility] Last Admin: 11/20/23 19:58 Dose: 10 mg Documented By: SHELBY Multivitamins/Vitamin C (Multivitamin Tablet) 1 tab PO DAILY [facility] Last Admin: 11/21/23 07:47 Dose: 1 tab Documented By: DAVID Nitroglycerin (Nitroglycerin 0.4 Mg Tab.Subl) 0.4 mg SUBLINGUAL Q5M PRN PRN Reason: Chest Pain Oxycodone HCl (Oxycodone Hcl Immed Release 5 Mg Tablet) 5 mg PO Q6H PRN PRN Reason: Pain, Moderate(Pain Scale 4-6) Last Admin: 11/20/23 20:02 Dose: 5 mg Documented By: SHELBY Polyethylene Glycol (Polyethylene Glycol 3350 17 Gm Powd.Pack) 17 gm PO DAILY [facility] Last Admin: 11/21/23 09:17 Dose: Not Given Documented By: DAVID Non-Admin Reason: Patient Refused Prednisone (Prednisone 20 Mg Tablet) 40 mg PO DAILY [facility] Last Admin: 11/21/23 07:48 Dose: 40 mg Documented By: DAVID Sodium Chloride (0.9 % Sodium Chloride Flush 3 Ml Syringe) 3 ml IVFLUSH QSHIFT [facility] Last Admin: 11/21/23 07:52 Dose: 3 ml Documented By: DAVID Tamsulosin HCl (Tamsulosin Hcl 0.4 Mg Capsule) 0.4 mg PO BEDTIME [facility] Last Admin: 11/20/23 19:58 Dose: 0.4 mg Documented By: SHELBY Vitamin D (Cholecalciferol (Vitamin D3) 25 Mcg Tablet) 50 mcg PO DAILY [facility] Last Admin: 11/21/23 07:48 Dose: 50 mcg Documented By: DAVID Labs 11/21/23 06:38 11/21/23 05:28 Labs: Laboratory Results - last 24 hr 11/20/23 11/20/23 11/21/23 16:01 19:59 05:28 MCV MCH MCHC RDW Plt Count MPV Absolute Nucleated RBC Nucleated RBC % (auto) Anion Gap 15 Estim Creat Clear Calc 82.2 Estimated GFR > 60 POC Glucose 161 H 217 H Random Glucose 135 H Calcium 9.8 11/21/23 11/21/23 11/21/23 06:38 07:19 11:32 MCV 85.0 MCH 28.6 MCHC 33.7 RDW 14.1 Plt Count 268 D MPV 9.3 L Absolute Nucleated RBC 0.000 Nucleated RBC % (auto) 0.0 Anion Gap Estim Creat Clear Calc Estimated GFR POC Glucose 129 H 253 H Random Glucose Calcium Assessment and Plan (1) Acute asthma exacerbation: Status: Acute (2) Gross hematuria: Status: Acute (3) UTI (urinary tract infection): Status: Acute (4) Urinary retention: Status: Acute Plan Emory Cui is a 73 years old man admitted with shortness of breath, chest tightness of one-week duration and inability to urinate associated with abdominal pain of 1 day duration: CT abdomen showed distended urinary bladder with blood products, bilateral renal collecting system and ureteral prominence extending to urinary bladder, significant prostate gland hypertrophy, diverticulosis of descending colon, stable low-density right adrenal lesion. Acute Urinary retention associated with gross hematuria; Likely related to BPH Received 2 units packed red blood cells 11/17. H/H stable S/p indwelling urinary catheter placement and bladder irrigation by Urology several clots were irrigated out Hold CBI since 11/19 morning, clear urine Hold aspirin. Continue tamsulosin Being followed by Urology. Acute toxic metabolic encephalopathy, Likely due to polypharmacy now resolved, mood disorder on meds including bupropion, Cymbalta, Neurontin, Restoril, Seroquel, baclofen Seroquel discontinued, dose of Restoril reduced to 15 mg from home dose of 30 mg Follow clinical course Acute on chronic blood-loss anemia due to hematuria- Transfuse 2 unit of packed RBC since patient is symptomatic with lightheadedness dizziness follow CBC Acute exacerbation of mild intermittent asthma PO steroids, DuoNeb updraft, Continue Symbicort or alternative, fluticasone, Claritin and montelukast. Acute kidney injury likely due to urinary retention , renal function returned to baseline restart Lasix , avoid hypotension. Type 2 diabetes mellitus. insulin sliding scale. Obstructive sleep apnea. Not using CPAP at home /placed on cpap at night due to acute encephalopathy, ABGs did not show hypercapnia. Essential hypertension. Continue metoprolol, Restart hydralazine , clonidine 0.2 mg restart Imdur at 30 mg, increase to 60 as toelrated Hyperlipidemia. Continue atorvastatin. Depression/mood disorder. Continue trazodone , duloxetine, bupropion. Hypothyroidism Continue levothyroxine. Obesity due to excess calories. BMI 31.8 kg/m2. Recommend low-calorie diet . DVT prophylaxis: SCDs Code status: Full Patient will need continued inpatient hospitalization for urinary retention and gross hematuria treatment pending PT evaluation and safe discharge plan Quality Stroke Does the patient have a stroke diagnosis?: No VTE Prior VTE?: No VTE Risk Level:: Medical - moderate - high VTE Device Contraindication: N/A - Device Ordered VTE Drug Contraindication: Treatment Not Indicated
[2023-11-21] MEDS: Insulin Lispro 100 UNIT/ML 3 ML VIAL SUBCUT ×3 (12:01→20:00)
[2023-11-21] MEDS: Isosorbide Mononitrate 30 MG TAB.ER.24H PO (12:40)
[2023-11-21] MEDS: Fluticasone Propionate Nasal 16 GM SPRAY 2 SPRAY NOSTRIL-B (12:41)
[2023-11-21 15:40] LABS: Glucose, Whole Blood 217 mg/dL (60-115)
[2023-11-21] MEDS: amLODIPine Besylate 2.5 MG TABLET 7.5 MG PO (15:51)
--- NOTE | 2023-11-21 16:18 | MHC.CM.PN ---
CM met with pt and family at the request of nurse to compete HCP. CM clarified what HCP is, and family and pt said they do not want to complete this, they wanted pt.'s son to be added to contact list. Task submitted for this.
[2023-11-21 19:55] LABS: Glucose, Whole Blood 232 mg/dL (60-115)
[2023-11-21] MEDS: cloNIDine HCL 0.2 MG TABLET PO (19:58)
[2023-11-21] MEDS: Montelukast Sodium 10 MG TABLET PO (19:59)
[2023-11-21] MEDS: Tamsulosin HCL 0.4 MG CAPSULE PO (19:59)
[2023-11-21] MEDS: Acetaminophen 325 MG TABLET 975 MG PO (23:42)
[2023-11-22] VITALS (9 sets, daily range): BP systolic 157–181; BP diastolic 81–96; PULSE 73–87; RESP 16–20; TEMP 36.2–37.1; O2SAT 94–97
[2023-11-22] MEDS: Levothyroxine Sodium 75 MCG TABLET PO (05:51)
[2023-11-22 07:06] LABS: Hemoglobin 12.2 g/dl (14.0-18.0); Mean Corpuscular HGB Conc 33.9 g/dl (31.0-36.0); Mean Corpuscular Hemoglobin 29.3 pg (27.0-33.0); Mean Corpuscular Volume 86.3 fL (80.0-98.0); Mean Platelet Volume 9.2 fL (9.4-12.4); Platelet Count 302 X10*3/uL (160-400); Red Blood Count 4.17 X10*6/uL (4.60-5.80); Red Cell Distribution Width 14.6 % (11.0-16.0)
[2023-11-22 07:20] LABS: Anion Gap 14 (12-20); Blood Urea Nitrogen 17 mg/dL (9-16); Calcium 10.2 mg/dL (8.4-10.2); Carbon Dioxide 28 mmol/L (22-29); Chloride 102 mmol/L (96-108); Creatinine Clr Calc Pharmacy 76.6; Estimated Glomerular Filt Rate > 60; Glucose Random 147 mg/dL (60-115); Potassium 3.7 mmol/L (3.3-5.1); Sodium 140 mmol/L (135-145)
[2023-11-22] MEDS: Fluticasone/Vilanterol 200/25 BLST.W.DEV 1 PUFF INHALE (07:34)
[2023-11-22 07:49] LABS: Glucose, Whole Blood 155 mg/dL (60-115)
[2023-11-22] MEDS: Metoprolol Succinate ER 100 MG TAB.ER.24H 200 MG PO (08:17)
[2023-11-22] MEDS: Cholecalciferol (Vitamin D3) 25 MCG TABLET 50 MCG PO (08:17)
[2023-11-22] MEDS: Isosorbide Mononitrate 30 MG TAB.ER.24H PO ×2 (08:18→11:46)
[2023-11-22] MEDS: Multivitamin TABLET 1 TAB PO (08:18)
[2023-11-22] MEDS: Atorvastatin Calcium 40 MG TABLET PO (08:18)
[2023-11-22] MEDS: Loratadine 10 MG TABLET PO (08:18)
[2023-11-22] MEDS: DULoxetine HCl 60 MG CAPSULE.DR 120 MG PO (08:18)
[2023-11-22] MEDS: Ferrous Sulfate 324 MG TABLET.DR PO ×2 (08:18→20:27)
[2023-11-22] MEDS: Insulin Lispro 100 UNIT/ML 3 ML VIAL SUBCUT ×4 (08:18→20:27)
[2023-11-22] MEDS: buPROPion HCl XL 300 MG TAB.ER.24H PO (08:18)
[2023-11-22] MEDS: hydrALAZINE HCl 50 MG TABLET 100 MG PO ×3 (08:18→20:26)
[2023-11-22] MEDS: predniSONE 20 MG TABLET 40 MG PO (08:18)
[2023-11-22] MEDS: Furosemide 20 MG TABLET PO (08:18)
[2023-11-22] MEDS: Gabapentin 100 MG CAPSULE PO (08:18)
[2023-11-22] MEDS: Baclofen 10 MG TABLET 5 MG PO ×3 (08:19→20:25)
[2023-11-22] MEDS: Fluticasone Propionate Nasal 16 GM SPRAY 2 SPRAY NOSTRIL-B (08:23)
[2023-11-22] MEDS: 0.9 % Sodium Chloride Flush 3 ML SYRINGE IVFLUSH ×3 (08:24→20:27)
--- NOTE | 2023-11-22 11:13 | HO.PM.IMPN ---
Subjective Subjective Date of Service: 11/22/23 Interval History: Being followed for hematuria/COPD exacerbation, noted to have elevated blood pressures this morning denies headache, no lightheadedness, no dizziness, no chest pain, no palpitation or shortness of breath/noted to have punch colored urine in [place] bag today, CBI held 48 hours ago, hematocrit stable. Review of Systems All other system reviewed and negative Physical Exam Vital Signs: Vital Signs: Last Vital Signs Temp 97.2 F 11/22/23 08:00 Pulse 78 11/22/23 08:00 Resp 18 11/22/23 08:00 BP 180/91 H 11/22/23 08:00 Pulse Ox 95 11/22/23 08:00 O2 Del Method Room Air 11/22/23 08:00 O2 Flow Rate 11/19/23 03:56 BMI result Body Mass Index 31.8 Const: Other: General awake alert x3, in no acute distress. Neck supple, no JVD. CVS regular rate rhythm, Respiratory lungs few expiratory wheeze, diminished breath sounds, no respiratory distress. Gastrointestinal abdomen soft, non tender, obese, bowel sounds audible, no guarding , no rigidity. Extremities no edema. Neuro non focal Skin no rash Psych appropriate affect [place] punch colored urine Objective Data Active Medications Acetaminophen (Acetaminophen 325 Mg Tablet) 975 mg PO Q6H PRN PRN Reason: mild pain, headache or fever Last Admin: 11/21/23 23:42 Dose: 975 mg Documented By: LAURA Albuterol Sulfate (Albuterol Sulfate (0.083%) 2.5 Mg/3 Ml Vial.Neb) 2.5 mg INHALE Q2H PRN PRN Reason: Shortness of Breath/Wheezing Amlodipine Besylate (Amlodipine Besylate 2.5 Mg Tablet) 7.5 mg PO DAILY@1700 ORAL; Protocol Last Admin: 11/21/23 15:51 Dose: 7.5 mg Documented By: HANNAH Atorvastatin Calcium (Atorvastatin Calcium 40 Mg Tablet) 40 mg PO DAILY [facility] Last Admin: 11/22/23 08:18 Dose: 40 mg Documented By: NITIN Baclofen (Baclofen 10 Mg Tablet) 5 mg PO TID [facility] Last Admin: 11/22/23 08:19 Dose: 5 mg Documented By: NITIN Bupropion HCl (Bupropion Hcl Xl 300 Mg Tab.Er.24h) 300 mg PO DAILY [facility] Last Admin: 11/22/23 08:18 Dose: 300 mg Documented By: NITIN Clonidine HCl (Clonidine Hcl 0.2 Mg Tablet) 0.2 mg PO BEDTIME [facility]; Protocol Last Admin: 11/21/23 19:58 Dose: 0.2 mg Documented By: ERROL Docusate Sodium (Docusate Sodium 100 Mg Capsule) 100 mg PO BID [facility] Last Admin: 11/22/23 08:24 Dose: Not Given Documented By: NITIN Non-Admin Reason: Patient Refused Duloxetine HCl (Duloxetine Hcl 60 Mg Capsule.) 120 mg PO DAILY [facility] Last Admin: 11/22/23 08:18 Dose: 120 mg Documented By: NITIN Ferrous Sulfate (Ferrous Sulfate 324 Mg Tablet.) 324 mg PO BID [facility] Last Admin: 11/22/23 08:18 Dose: 324 mg Documented By: NITIN Fluticasone Propionate (Fluticasone Propionate Nasal 16 Gm [place]) 2 spray NOSTRIL-B DAILY [facility] Last Admin: 11/22/23 08:23 Dose: 2 spray Documented By: NITIN Fluticasone/Vilanterol (Fluticasone/Vilanterol 200/25 Blst.W.Dev) 1 puff INHALE RDAILY [facility] Last Admin: 11/22/23 07:34 Dose: 1 puff Documented By: JT Furosemide (Furosemide 20 Mg Tablet) 20 mg PO DAILY [facility]; Protocol Last Admin: 11/22/23 08:18 Dose: 20 mg Documented By: NITIN Gabapentin (Gabapentin 100 Mg Capsule) 100 mg PO DAILY [facility] Last Admin: 11/22/23 08:18 Dose: 100 mg Documented By: NITIN Glucose (Glucose Gel 15 Gm Gel..Gram.) 15 gm PO Q15M PRN; Protocol PRN Reason: per Hypoglycemia Standing Ord. Guaifenesin (Guaifenesin 200 Mg/10 Ml 10 Ml Liquid) 10 ml PO Q6H PRN PRN Reason: Cough Hydralazine HCl (Hydralazine Hcl 50 Mg Tablet) 100 mg PO TID [facility]; Protocol Last Admin: 11/22/23 08:18 Dose: 100 mg Documented By: NITIN Hydromorphone HCl (Hydromorphone Hcl 0.5 Mg/0.5 Ml Syringe) 0.5 mg IVPUSH Q4H PRN; Protocol PRN Reason: Pain, Severe (Pain Scale 7-10) Last Admin: 11/21/23 07:45 Dose: 0.5 mg Documented By: DAVID Dextrose (D10) 250 mls @ 750 mls/hr IV Q15M PRN; Protocol PRN Reason: per Hypoglycemia Standing Ord. Insulin Human Lispro (Insulin Lispro 100 Unit/Ml 3 Ml Vial) 0 unit SUBCUT QIDACHS [facility]; Protocol Last Admin: 11/22/23 08:18 Dose: 2 unit Documented By: NITIN Isosorbide Mononitrate (Isosorbide Mononitrate 60 Mg Tab.Er.24h) 60 mg PO DAILY [facility]; Protocol Isosorbide Mononitrate (Isosorbide Mononitrate 30 Mg Tab.Er.24h) 30 mg PO ONCE ONE; Protocol Stop: 11/22/23 11:10 Levothyroxine Sodium (Levothyroxine Sodium 75 Mcg Tablet) 75 mcg PO DAILY@0600 [facility] Last Admin: 11/22/23 05:51 Dose: 75 mcg Documented By: LAURA Loratadine (Loratadine 10 Mg Tablet) 10 mg PO DAILY [facility] Last Admin: 11/22/23 08:18 Dose: 10 mg Documented By: NITIN Meclizine HCl (Meclizine Hcl 25 Mg Tablet) 25 mg PO TID PRN PRN Reason: Vertigo Metoprolol Succinate (Metoprolol Succinate Er 100 Mg Tab.Er.24h) 200 mg PO DAILY [facility]; Protocol Last Admin: 11/22/23 08:17 Dose: 200 mg Documented By: NITIN Montelukast Sodium (Montelukast Sodium 10 Mg Tablet) 10 mg PO BEDTIME [facility] Last Admin: 11/21/23 19:59 Dose: 10 mg Documented By: ERROL Multivitamins/Vitamin C (Multivitamin Tablet) 1 tab PO DAILY [facility] Last Admin: 11/22/23 08:18 Dose: 1 tab Documented By: NITIN Nitroglycerin (Nitroglycerin 0.4 Mg Tab.Subl) 0.4 mg SUBLINGUAL Q5M PRN PRN Reason: Chest Pain Oxycodone HCl (Oxycodone Hcl Immed Release 5 Mg Tablet) 5 mg PO Q6H PRN PRN Reason: Pain, Moderate(Pain Scale 4-6) Last Admin: 11/20/23 20:02 Dose: 5 mg Documented By: SHELBY Polyethylene Glycol (Polyethylene Glycol 3350 17 Gm Powd.Pack) 17 gm PO DAILY [facility] Last Admin: 11/22/23 08:24 Dose: Not Given Documented By: NITIN Non-Admin Reason: Patient Refused Prednisone (Prednisone 20 Mg Tablet) 40 mg PO DAILY [facility] Last Admin: 11/22/23 08:18 Dose: 40 mg Documented By: NITIN Sodium Chloride (0.9 % Sodium Chloride Flush 3 Ml Syringe) 3 ml IVFLUSH QSHIFT [facility] Last Admin: 11/22/23 08:24 Dose: 3 ml Documented By: NITIN Tamsulosin HCl (Tamsulosin Hcl 0.4 Mg Capsule) 0.4 mg PO BEDTIME [facility] Last Admin: 11/21/23 19:59 Dose: 0.4 mg Documented By: ERROL Vitamin D (Cholecalciferol (Vitamin D3) 25 Mcg Tablet) 50 mcg PO DAILY [facility] Last Admin: 11/22/23 08:17 Dose: 50 mcg Documented By: NITIN Labs 11/22/23 06:17 11/22/23 06:17 Labs: Laboratory Results - last 24 hr 11/21/23 11/21/23 11/21/23 11:32 15:35 19:51 MCV MCH MCHC RDW Plt Count MPV Absolute Nucleated RBC Nucleated RBC % (auto) Anion Gap Estim Creat Clear Calc Estimated GFR POC Glucose 253 H 217 H 232 H Random Glucose Calcium 11/22/23 11/22/23 06:17 07:41 MCV 86.3 MCH 29.3 MCHC 33.9 RDW 14.6 Plt Count 302 MPV 9.2 L Absolute Nucleated RBC 0.000 Nucleated RBC % (auto) 0.0 Anion Gap 14 Estim Creat Clear Calc 76.6 Estimated GFR > 60 POC Glucose 155 H Random Glucose 147 H Calcium 10.2 Assessment and Plan (1) Acute asthma exacerbation: Status: Acute (2) Gross hematuria: Status: Acute (3) UTI (urinary tract infection): Status: Acute (4) Urinary retention: Status: Acute Plan Emory Cui is a 73 years old man admitted with shortness of breath, chest tightness of one-week duration and inability to urinate associated with abdominal pain of 1 day duration: CT abdomen showed distended urinary bladder with blood products, bilateral renal collecting system and ureteral prominence extending to urinary bladder, significant prostate gland hypertrophy, diverticulosis of descending colon, stable low-density right adrenal lesion. Acute Urinary retention associated with gross hematuria; Likely related to BPH Received 2 units packed red blood cells 11/17. H/H stable S/p indwelling urinary catheter placement and bladder irrigation by Urology several clots were irrigated out CBI held since 11/19 morning, urine was clear in last 24 hours this morning noted to have punch colored urine Continue to Hold aspirin/irrigate [place] Continue tamsulosin Will discuss discharge and outpatient follow-up plan with Urology Acute toxic metabolic encephalopathy, Likely due to polypharmacy now resolved, mood disorder on meds including bupropion, Cymbalta, Neurontin, Restoril, Seroquel, baclofen Temazepam discontinued since was not refilled in last 1 year Acute on chronic blood-loss anemia due to hematuria- Transfuse 2 unit of packed RBC since patient was symptomatic with lightheadedness dizziness, hematocrit improved and remained stable follow CBC Acute exacerbation of mild intermittent asthma Improved will wean steroids, add prn DuoNeb updraft, Continue Symbicort or alternative, fluticasone, Claritin and montelukast. Acute kidney injury likely due to urinary retention , renal function returned to baseline restart Lasix low-dose 20 mg (home dose 40 mg) Type 2 diabetes mellitus. Blood sugar 155 on insulin sliding scale. Metformin on hold Obstructive sleep apnea. Not using CPAP at home /placed on cpap at night due to acute encephalopathy, ABGs did not show hypercapnia. Essential hypertension. Elevated blood pressures, Continue metoprolol, hydralazine , clonidine 0.2 mg and placed back on Imdur 60 mg, follow BP closely Hyperlipidemia. Continue atorvastatin. Depression/mood disorder. Continue trazodone , duloxetine, bupropion. Hypothyroidism Continue levothyroxine. Obesity due to excess calories. BMI 31.8 kg/m2. Recommend low-calorie diet . DVT prophylaxis: SCDs Code status: Full Patient will need continued inpatient hospitalization for urinary retention and gross hematuria treatment pending PT evaluation and safe discharge plan Quality Stroke Does the patient have a stroke diagnosis?: No VTE Prior VTE?: No VTE Risk Level:: Medical - moderate - high VTE Device Contraindication: N/A - Device Ordered VTE Drug Contraindication: Treatment Not Indicated
[2023-11-22 11:46] LABS: Glucose, Whole Blood 244 mg/dL (60-115)
--- NOTE | 2023-11-22 14:32 | MHC.CM.PN ---
EMR reviewed and per MD rounds, pt is not medically cleared for discharge due to management of urinary retention/hematuria.
[2023-11-22] MEDS: amLODIPine Besylate 2.5 MG TABLET 7.5 MG PO (16:05)
[2023-11-22 16:22] LABS: Glucose, Whole Blood 238 mg/dL (60-115)
[2023-11-22 20:16] LABS: Glucose, Whole Blood 265 mg/dL (60-115)
[2023-11-22] MEDS: cloNIDine HCL 0.2 MG TABLET PO (20:25)
[2023-11-22] MEDS: Montelukast Sodium 10 MG TABLET PO (20:26)
[2023-11-22] MEDS: Tamsulosin HCL 0.4 MG CAPSULE PO (20:26)
[2023-11-22] MEDS: Docusate Sodium 100 MG CAPSULE PO (20:29)
[2023-11-23] VITALS (9 sets, daily range): BP systolic 131–177; BP diastolic 82–93; PULSE 70–78; RESP 16–18; TEMP 36.2–36.5; O2SAT 93–100
[2023-11-23] MEDS: Levothyroxine Sodium 75 MCG TABLET PO (06:36)
[2023-11-23 08:17] LABS: Glucose, Whole Blood 141 mg/dL (60-115)
[2023-11-23] MEDS: Fluticasone/Vilanterol 200/25 BLST.W.DEV 1 PUFF INHALE (08:21)
[2023-11-23] MEDS: Ferrous Sulfate 324 MG TABLET.DR PO (08:33)
[2023-11-23] MEDS: Docusate Sodium 100 MG CAPSULE PO (08:33)
[2023-11-23] MEDS: Gabapentin 100 MG CAPSULE PO (08:33)
[2023-11-23] MEDS: polyethylene glycoL 3350 17 GM POWD.PACK PO (08:33)
[2023-11-23] MEDS: hydrALAZINE HCl 50 MG TABLET 100 MG PO (08:33)
[2023-11-23] MEDS: DULoxetine HCl 60 MG CAPSULE.DR 120 MG PO (08:34)
[2023-11-23] MEDS: predniSONE 20 MG TABLET PO (08:34)
[2023-11-23] MEDS: Baclofen 10 MG TABLET 5 MG PO (08:34)
[2023-11-23] MEDS: Metoprolol Succinate ER 100 MG TAB.ER.24H 200 MG PO (08:34)
[2023-11-23] MEDS: Multivitamin TABLET 1 TAB PO (08:34)
[2023-11-23] MEDS: Furosemide 20 MG TABLET PO (08:34)
[2023-11-23] MEDS: Fluticasone Propionate Nasal 16 GM SPRAY 2 SPRAY NOSTRIL-B (08:35)
[2023-11-23] MEDS: Atorvastatin Calcium 40 MG TABLET PO (08:35)
[2023-11-23] MEDS: Loratadine 10 MG TABLET PO (08:35)
[2023-11-23] MEDS: Cholecalciferol (Vitamin D3) 25 MCG TABLET 50 MCG PO (08:35)
[2023-11-23] MEDS: Isosorbide Mononitrate 60 MG TAB.ER.24H PO (08:35)
[2023-11-23] MEDS: buPROPion HCl XL 300 MG TAB.ER.24H PO (08:35)
[2023-11-23] MEDS: 0.9 % Sodium Chloride Flush 3 ML SYRINGE IVFLUSH (08:36)
--- NOTE | 2023-11-23 10:25 | MHC.CM.PN ---
ANTIC PT TO BE MEDICALLY CLEARED FOR DC HOME W/RESUMPTION OF WEEKLY [facility] FOR MED MANAGEMENT AND CLIENT DEVELOPMENT DIRECTOR, CLIENT DEVELOPMENT DIRECTOR FOR TRANSPORT.
--- NOTE | 2023-11-23 11:38 | P.DS_ITS ---
DS: Providers Provider Date of Service: 11/23/23 Date of admission: 11/16/23 20:31 Primary care physician: Brandie Evangelista DO DS: Diagnosis Discharge Diagnosis (1) Acute asthma exacerbation: Status: Acute (2) Gross hematuria: Status: Acute (3) UTI (urinary tract infection): Status: Acute (4) Urinary retention: Status: Acute DS: Summary Hospital Course Hospital Course: History of presenting illness: Date of Service: 11/16/23 Attending physician on admission: Sarah Bishop Chief Complaint: Unable to urinate Emory Cui is a 73 years old man with past medical history significant for BPH, prior urinary retention, type 2 diabetes mellitus on metformin, asthma, obesity, sleep apnea and depression presents to the emergency department complaining of inability to urinate since yesterday associated with abdominal pain. He denied nausea, vomiting or diarrhea. He did not report any headache, palpitations or dizziness hip. He does complain of shortness on breath and wheezing. Associated with chest tightness. He denied tobacco smoking, alcohol abuse or illicit drug use. In the ED, he was found to have stable vital signs. His blood pressure was markedly elevated before but normalized after an indwelling urinary catheter was placed by urologist. The workup showed hemoglobin of 13.3. There is no leukocytosis or thrombocytopenia. There are no electrolyte imbalances. Creatinine is 1.09 and BUN 11. LFTs are normal. Urinalysis showed hematuria, elevated leukocyte esterase and elevated WBC. Abdomen pelvis CT scan showed markedly urinary bladder with marked enlarged prostate and dilation of the intrarenal collecting system and ureter in both sides. ED tx: Morphine 12 mg IV (total), ceftriaxone 1 g IV. Hospital course: Emory Cui is a 73 years old man admitted with shortness of breath, chest tightness of one-week duration and inability to urinate associated with abdominal pain of 1 day duration,CT abdomen showed distended urinary bladder with blood products, bilateral renal collecting system and ureteral prominence extending to urinary bladder, significant prostate gland hypertrophy, diverticulosis of descending colon, stable low-density right adrenal lesion, patient admitted and treated for following medical issues. Acute Urinary retention associated with gross hematuria, was likely related to BPH, indwelling urinary catheter was placed and bladder irrigation was done by Urology several clots were irrigated out subsequently patient was treated with CBI, urine became clear, CBI was held since 11/19, since no recurrent bleed was noted CBI discontinued and patient is now being discharged on 3 way catheter and has been recommended to follow-up with urology in 2-3 weeks, aspirin is held and recommend to resume in 1 week, he is recommended to continue Flomax Acute toxic metabolic encephalopathy, Likely due to polypharmacy resolved, patient was noted to be on multiple medications including bupropion, Cymbalta, Neurontin, temazepam, Seroquel and baclofen, it seems that patient has been falling at home and has been feeling weak therefore baclofen was weaned and now discontinued, Seroquel and temazepam has been discontinued. Temazepam was not refilled in last 1 year Acute on chronic blood-loss anemia due to hematuria patient received 2 units of packed RBC hematocrit improved and remained stable. Acute exacerbation of mild intermittent asthma treated with steroids and updraft treatment, recommend to continue Symbicort and montelukast and use cetirizine as needed Acute kidney injury likely due to urinary retention , resolved. Type 2 diabetes mellitus. Continue metformin and follow diabetic diet Obstructive sleep apnea. Not using CPAP at home , recommend follow-up with primary care physician and consider using CPAP Essential hypertension. Continue all home medications including metoprolol, hydralazine , clonidine 0.2 mg and Imdur 60 mg, follow BP closely Hyperlipidemia. Continue atorvastatin. Depression/mood disorder. Continue trazodone , duloxetine, bupropion. Hypothyroidism Continue levothyroxine. Obesity due to excess calories. BMI 31.8 kg/m2. Recommend low-calorie diet . Time Attestation Discharge Coordination Time (in mins): 40 Quality: Safe Use of Opioids Does Pt have an Active Cancer Diagnosis on the Problem List?: No Quality: Stroke Does the patient have a stroke diagnosis?: No Physical Exam Vital Signs: Vital Signs: Last Vital Signs Temp 97.7 F 11/23/23 08:00 Pulse 78 11/23/23 08:34 Resp 18 11/23/23 08:22 BP 174/82 H 11/23/23 08:35 Pulse Ox 96 11/23/23 08:00 O2 Del Method Room Air 11/23/23 08:00 O2 Flow Rate 24 11/19/23 03:56 BMI result Body Mass Index 31.8 Const: Other: General awake alert x3, in no acute distress. Neck supple, no JVD. CVS regular rate rhythm, Respiratory lungs few expiratory wheeze, diminished breath sounds, no respiratory distress. Gastrointestinal abdomen soft, non tender, obese, bowel sounds audible, no guarding , no rigidity. Extremities no edema. Neuro non focal Skin no rash Psych appropriate affect Quintanilla clear urine DS: Data Data Completed and Pending Labs on day of discharge: Laboratory Results - last 24 hr 11/22/23 11/22/23 11/22/23 11:40 16:19 20:13 POC Glucose 244 H 238 H 265 H 11/23/23 08:09 POC Glucose 141 H Discharge Plan Discharge Anticipated Discharge Date/Time: 11/23/23 11:26 Patient Disposition: Home Health Service Discharge Diagnosis: Acute urinary retention with gross hematuria Acute toxic metabolic encephalopathy Acute on chronic blood-loss anemia Acute exacerbation of mild intermittent asthma Acute kidney injury Referrals: Laney Jha [Outside] - 1 Day ([facility]) Brandie Evangelista DO [Primary Care Provider] - 1 Week Discharge Medications: Continued albuterol sulfate [Ventolin HFA] 90 mcg/actuation Hfa Aerosol Inhaler 2 puff INHALATION Q4-6H PRN (Reason: Shortness Of Breath Or Wheezing) triamcinolone acetonide 0.1 % ointment 1 appl topical DAILY metformin 500 mg tablet 1 tab PO TIDWMEAL hydralazine 100 mg tablet 100 mg PO TID albuterol sulfate 2.5 mg /3 mL (0.083 %) solution for nebulization 2.5 mg inhalation Q4H PRN (Reason: Shortness Of Breath Or Wheezing) metoprolol succinate 200 mg tablet extended release 24 hr 200 mg PO DAILY ferrous sulfate [FeroSul] 325 mg (65 mg iron) tablet 325 mg PO BID nitroglycerin 0.4 mg tablet, sublingual 0.4 mg sublingual Q5M PRN (Reason: Chest Pain) polyethylene glycol 3350 17 gram/dose powder 17 g PO DAILY atorvastatin 40 mg tablet 40 mg PO DAILY budesonide-formoterol 160-4.5 mcg/actuation HFA aerosol inhaler 2 puff inhalation BID duloxetine 60 mg capsule,delayed release(DR/EC) 120 mg PO DAILY fluticasone propionate 50 mcg/actuation spray,suspension 2 spray intranasal DAILY furosemide 40 mg tablet 40 mg PO DAILY gabapentin 100 mg capsule 100 mg PO DAILY isosorbide mononitrate 60 mg tablet extended release 24 hr 60 mg PO DAILY levothyroxine 75 mcg tablet 75 mcg PO DAILY meclizine 25 mg tablet 25 mg PO TID PRN (Reason: Vertigo) montelukast 10 mg tablet 10 mg PO BEDTIME tamsulosin 0.4 mg capsule 0.4 mg PO BEDTIME trazodone 150 mg tablet 150 mg PO BEDTIME clonidine HCl 0.2 mg tablet 0.2 mg PO BEDTIME acetaminophen 650 mg tablet extended release 650 mg PO TID ascorbic acid (vitamin C) [Vitamin C] 250 mg tablet 250 mg PO DAILY docusate sodium 100 mg capsule 100 mg PO BID bupropion HCl 300 mg tablet extended release 24 hr 300 mg PO DAILY Cerovite Senior 0.4 mg-300 mcg- 250 mcg tablet 1 tab PO DAILY cholecalciferol (vitamin D3) 50 mcg (2,000 unit) capsule 50 mcg PO DAILY Held aspirin 81 mg tablet,delayed release (DR/EC) 1 tab PO DAILY Hold Instructions: Resume on 11/30/23. Discontinued baclofen 10 mg tablet 10 mg PO TID temazepam 30 mg capsule 30 mg PO BEDTIME quetiapine 100 mg tablet 100 mg PO BEDTIME cetirizine 10 mg tablet 10 mg PO DAILY Discharge Orders: Discharge Order (Routine); Ordered 11/23/23 Ordered By: Glenys Aguilar Diet: Diabetic diet Activity on Discharge: As tolerated Stand Alone Forms: Patient Portal Discharge page Print Language: Chinese Care Plan Goals: Acute urinary retention continue Quintanilla catheter follow-up with urology Stop baclofen, temazepam and Seroquel due to sedation and high fall risk and being on multiple other medications. Take cetirizine as needed for allergy symptoms not daily. Health Concerns: Diabetes Hypertension Continue all other home medications as before Plan of Treatment: Follow-up with Cherry Laboy from Urology call for appointment in 2-3 weeks. Follow-up with primary care physician. Assessment: As above
[2023-11-23 11:39] LABS: Glucose, Whole Blood 204 mg/dL (60-115)
[2023-11-23] MEDS: Insulin Lispro 100 UNIT/ML 3 ML VIAL SUBCUT (11:53)
== END 2023-11-23 13:16 | disposition home health service (06) | DRG 725 ==
LOC: HO.ED 20:16 → HO.EDOVER 20:52 → HO.S3 11-17 22:21 → HO.EDOVER 11-18 01:03 → HO.IMC 11-18 07:35
PROVIDERS: Physician Assistant; Physician Assistant Medical; Student in an Organized Health Care Education/Training Program; Admitting Provider Internal Medicine; Emergency Provider Emergency Medicine; PCP Family Medicine; Visit Provider Hospitalist
DX: N40.1 Benign prostatic hyperplasia with lower urinary tract symptoms (principal); G92.8 Other toxic encephalopathy; J45.21 Mild intermittent asthma with (acute) exacerbation; N17.9 Acute kidney failure, unspecified; R65.10 Systemic inflammatory response syndrome (SIRS) of non-infectious origin without acute organ dysfunction; D62 Acute posthemorrhagic anemia; R33.8 Other retention of urine; G47.33 Obstructive sleep apnea (adult) (pediatric); I25.10 Atherosclerotic heart disease of native coronary artery without angina pectoris; I95.9 Hypotension, unspecified; T50.915A Adverse effect of multiple unspecified drugs, medicaments and biological substances, initial encounter; I10 Essential (primary) hypertension; E11.9 Type 2 diabetes mellitus without complications; F32.A Depression, unspecified; R31.0 Gross hematuria; E03.9 Hypothyroidism, unspecified; E78.5 Hyperlipidemia, unspecified; E66.09 Other obesity due to excess calories; Z91.199 Patient's noncompliance with other medical treatment and regimen due to unspecified reason; Z68.31 Body mass index [BMI] 31.0-31.9, adult; Z79.51 Long term (current) use of inhaled steroids; Z79.82 Long term (current) use of aspirin; Z79.84 Long term (current) use of oral hypoglycemic drugs; Z79.890 Hormone replacement therapy; Z79.899 Other long term (current) drug therapy
CPT/HCPCS: 36415; 36600; 74176; 74177; 80048; 80053; 81001; 82803; 82947; 83605; 83735; 84484; 85014; 85018; 85025; 85027; 86850; 86900; 86901; 86923; 87086; 93005; 94660; 99285; C1758; J0696; J1170; J1885; J2270; J2310; J7120; P9016; Q9967

== ENCOUNTER → 2023-11-16 13:46 | Outpatient (BNV) | payer OTHER, SELFPAY | PROVIDERS: Emergency Provider Emergency Medicine; Visit Provider Urology | DX: N40.0 Benign prostatic hyperplasia without lower urinary tract symptoms (principal); R33.9 Retention of urine, unspecified; N39.0 Urinary tract infection, site not specified; R31.0 Gross hematuria | CPT/HCPCS: 52001; 52204; 99222 ==

== ENCOUNTER 2023-11-16 20:31 | Outpatient (BNV) | payer OTHER, SELFPAY | END 2023-11-18 00:39 | PROVIDERS: Admitting Provider Internal Medicine; Emergency Provider Emergency Medicine; PCP Family Medicine; Visit Provider Internal Medicine Cardiovascular Disease | DX: I49.9 Cardiac arrhythmia, unspecified (principal) | CPT/HCPCS: 93010 ==

== ENCOUNTER → 2023-11-16 20:31 | Outpatient (BNV) | payer OTHER, SELFPAY | PROVIDERS: Admitting Provider Internal Medicine; Emergency Provider Emergency Medicine; Visit Provider Internal Medicine | DX: J45.901 Unspecified asthma with (acute) exacerbation (principal); N30.01 Acute cystitis with hematuria; R33.9 Retention of urine, unspecified | CPT/HCPCS: 99223; 99232; 99233; 99239; 99499 ==

== ENCOUNTER 2023-12-15 14:23 | Outpatient (AMB) | payer OTHER, SELFPAY ==
[2023-12-15 14:39] VITALS: BP 130/78; BMI 33.4
--- NOTE | 2023-12-15 14:39 | MHC.OFFVIS ---
Vital Signs 12/15/23 14:39 Height 5 ft 8 in Weight 220 lb BMI 33.4 BP 130/78 Blood Pressure Location Lt brachial Position Sitting Intake Visit Reasons: Shortness of breath Intake Note: pt is here for follow up from and states he is uncomfortable due to catheter, he has been in and out of the hospital for bronchitis, and is worried that he needs to see us more often. coughing at night (dry), he is unable to sleep. Allergies No Known Allergies Allergy (Verified 12/15/23 15:13) Medication List - Last Reconciled 12/15/23 by Ibis Peralta MD acetaminophen ER 650 mg PO TID albuterol sulfate 90 mcg/actuation (Ventolin HFA) 2 puffs inhalation Q4-6H PRN albuterol sulfate 2.5 mg inhalation Q4H PRN ascorbic acid (vitamin C) (Vitamin C) 250 mg PO DAILY aspirin 1 tab PO DAILY atorvastatin 40 mg PO DAILY budesonide-formoterol 160-4.5 mcg/actuation 2 puffs inhalation BID bupropion HCl XL 300 mg PO DAILY cholecalciferol (vitamin D3) 50 mcg PO DAILY clonidine HCl 0.2 mg PO BEDTIME docusate sodium 100 mg PO BID duloxetine 120 mg PO DAILY ferrous sulfate (FeroSul) 325 mg PO BID fluticasone propionate 50 mcg/actuation 2 sprays intranasal DAILY furosemide 40 mg PO DAILY gabapentin 100 mg PO DAILY hydralazine 100 mg PO TID isosorbide mononitrate ER 60 mg PO DAILY levothyroxine 75 mcg PO DAILY meclizine 25 mg PO TID PRN metformin 1 tab PO TIDWMEAL metoprolol succinate ER 200 mg PO DAILY montelukast 10 mg PO BEDTIME ziwliqez-hba-LW-lycopen-lutein 0.4 mg-300 mcg- 250 mcg (Cerovite Senior) 1 tab PO DAILY nitroglycerin 0.4 mg sublingual Q5M PRN polyethylene glycol 3350 17 grams PO DAILY tamsulosin 0.4 mg PO BEDTIME trazodone 150 mg PO BEDTIME triamcinolone acetonide 0.1% 1 appl topical DAILY Do you need a note to return to daycare/school/sports/work: No HPI HPI Shortness of breath: Details: This 73 years old gentleman, Fijian-speaking, grossly obese, with longstanding history of allergic rhinitis/bronchial asthma. Is here today for follow-up after discharge from the hospital 3 weeks ago. He was treated in [facility] , actually for acute urinary retention, and required indwelling Quintanilla catheter . Even after discharge, he still has the Quintanilla catheter in, complaining that it is very uncomfortable. He has not made appointment with the urology service yet. He complains of bouts of cough and some congested feeling. Also complains that he has gasping like feeling at night and can not sleep. This is related to his obstructive sleep apnea. He has been tested many times and started on the CPAP machine. He has always been noncompliant and CPAP device taken away due to noncompliance. Today he is telling us that his CPAP machine, last year became infested with the roaches , and that is why he returned it. He was supposed to get new CPAP machine but it never happened. * needless to say, we have to make it clear with the DME provider [facility] Medical History LUCA (obstructive sleep apnea) Obesity (BMI 30-39.9) Lipoma of neck Coronary artery disease Chronic low back pain Asthma Hyperlipidemia BPH (benign prostatic hyperplasia) Diabetes Personal history of COVID-19 Hypertension Allergic rhinitis COPD (chronic obstructive pulmonary disease) Surgical History History of surgery of head Hx of shoulder surgery Hx of umbilical hernia repair History of surgery Hx of bilateral cataract extraction Hx of cardiac catheterization Hx of circumcision History of esophagogastroduodenoscopy (EGD) H/O colonoscopy Family History Mother No problems noted. Father No problems noted. 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) Alcohol intake: never Patient Tobacco Use Status: Never used Tobacco Advance Directives Date on File: 05/14/20 service: No Review of Systems Const All systems reviewed & are unremarkable except as noted in HPI and below Eyes Reports no additional complaints ENT Reports nasal congestion (ALL THE TIMES) and Reports post nasal drip Card Denies chest pain, Denies irregular heart rhythm and Reports dyspnea on exertion Resp Reports cough (frequent) and Reports dyspnea on exertion GI Reports no additional complaints Musc Reports no additional complaints Neuro Reports no additional complaints Psych Reports depression Physical Exam Vital Signs: Last Vital Signs BP 130/78 12/15/23 14:39 BMI result Body Mass Index 33.4 Const Other: HE IS GROSSLY OBESE, WITH A ROUND FACE, NARROW OROPHARYNX, MALLAMPATI CLASS 4 NECK CIRCUMFERENCE 18 IN' General: comfortable, no acute distress, alert and awake Orientation/consciousness: patient oriented x3 HEENT Head: Yes normal to inspection General nose exam: No nasal polyps present, No nasal discharge present and Abnormal mucous membranes and turbinates present (NASAL TURBINATES ARE HYPERTROPHIC) Face and sinus: Yes sinuses nontender Mouth: oropharynx normal Throat: Yes posterior oropharynx normal Eyes General: appearance normal, both eyes and all related structures Neck Neck: Yes normal visual inspection, Yes no lymphadenopathy, Yes trachea midline, Yes no JVD and Yes other (Neck circumference 18 in, a golf ball sized lipoma on left side of the neck) Thyroid: Thyroid normal Chest Chest palpation & inspection: normal inspection of the chest, normal palpation of entire chest wall and no tenderness Resp Other: Percussion note resonant, breath sounds are distant with prolonged expiratory phase. No wheezes or creps. are herad . Cardio Palpation: PMI not normal (Not palpable.) Rate: regular rate Rhythm: regular rhythm Heart sounds: no gallops and no murmurs GI Palpation (GI): Soft to palpation, nontender, No hepatosplenomegaly present, no masses and Other GI palpation findings present (Abdomen is obese and protuberant) Auscultation: normal bowel sounds Back/Spine/Pelvis Thoracic/Lumbar Spine: thoracic and lumbar spine normal to inspection Skin General skin exam: no rashes or lesions noted Neuro General: patient oriented x3 and no focal motor deficits Cranial nerves: Yes CN's II-XII intact bilaterally Extrem General: Yes normal to inspection, Yes no clubbing, cyanosis or edema and Yes no calf tenderness Psych Appearance: grossly normal and well kempt Speech and movement: Normal speech and movement present Assessment & Plan Assessment & Plan (1) Allergic rhinitis: Comment: IT HAS BEEN A CHRONIC PROBLEM. Code(s): J30.9 - Allergic rhinitis, unspecified Category: Medical Plan: He is advised to continue his regular medical regimen. TX : CONTINUE USING FLONASE 2 SPRAY IN EACH NOSTRIL DAILY HE IS ALSO ON MONTELUKAST 10 MG DAILY. (2) COPD (chronic obstructive pulmonary disease): Comment: CLINICALLY HAS MODERATELY SEVERE OBSTRUCTIVE AIRWAY DISORDER. HE HAS BEEN USING SYMBICORT 160-4.52 PUFFS B.I.D. AND VENTOLIN 2 PUFFS Q 4-6 HOURS ONLY P.R.N.. CLINICALLY HIS COPD IS STABLE EXPECTED. Code(s): J44.9 - Chronic obstructive pulmonary disease, unspecified Category: Medical Plan: TX: ADVISED TO CONTINUE HIS CURRENT REGIMEN : MONTELUKAST 10 MG DAILY SYMBICORT 160-4.52 PUFFS B.I.D. ALBUTEROL HFA 2 PUFFS Q 6 HOURS P.R.N.. USE ALBUTEROL IN THE NEBULIZER Q 6 HOURS P.R.N. ONLY FOR SEVERE ATTACKS (3) Obesity (BMI 30-39.9): Comment: Remains grossly obese, this is a chronic problem, lately he has lost some weight. He is trying to limit the calories intake, and also encouraged to start walking on a daily basis. Code(s): E66.9 - Obesity, unspecified Category: Medical Plan: Advise that he should limit intake of carbohydrates. Also walk daily for exercise (4) LUCA (obstructive sleep apnea): Comment: Longstanding history of obstructive sleep apnea, has remained non compliant most of the times and his CPAP device was taken away due to noncompliance. He seems to be symptomatic and has the difficulty. In sleeping at night He is showing his intention to use the CPAP regularly. Code(s): G47.33 - Obstructive sleep apnea (adult) (pediatric) Category: Medical Plan: We are going to talk and discuss with the DME provider, to see if he can get a new CPAP device based on his previous sleep studies. Otherwise he would need to have another home-based sleep study. Coding Level of Care Code Est Pt Level 4 (65026) Diagnoses Allergic rhinitis J30.9 COPD (chronic obstructive pulmonary disease) J44.9 Obesity (BMI 30-39.9) E66.9 LUCA (obstructive sleep apnea) G47.33
== END 2023-12-15 15:12 | disposition home or self-care (01) ==
LOC: HO.HPS 14:26
PROVIDERS: PCP Family Medicine; Visit Provider Internal Medicine
DX: J30.9 Allergic rhinitis, unspecified (principal); J44.9 Chronic obstructive pulmonary disease, unspecified; E66.9 Obesity, unspecified; G47.33 Obstructive sleep apnea (adult) (pediatric)
CPT/HCPCS: 99214

== ENCOUNTER → 2023-12-15 14:26 | Outpatient (BNVA) | payer OTHER, SELFPAY | PROVIDERS: PCP Family Medicine; Visit Provider Internal Medicine | DX: J44.9 Chronic obstructive pulmonary disease, unspecified (principal); J30.9 Allergic rhinitis, unspecified; E66.9 Obesity, unspecified; G47.33 Obstructive sleep apnea (adult) (pediatric) | CPT/HCPCS: 99212 ==

== ENCOUNTER 2023-12-16 08:11 | Outpatient (AMB) | payer OTHER, SELFPAY ==
--- NOTE | 2023-12-16 08:17 | A.OFFVIS_ITS ---
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: Yes Accompanied by: Self / Same As Patient Allergies No Known Allergies Allergy (Verified 12/16/23 08:18) Medication List - Last Reconciled 12/16/23 by Narda Hernandez MD acetaminophen ER 650 mg PO TID albuterol sulfate 90 mcg/actuation (Ventolin HFA) 2 puffs inhalation Q4-6H PRN albuterol sulfate 2.5 mg inhalation Q4H PRN ascorbic acid (vitamin C) (Vitamin C) 250 mg PO DAILY aspirin 1 tab PO DAILY atorvastatin 40 mg PO DAILY budesonide-formoterol 160-4.5 mcg/actuation 2 puffs inhalation BID bupropion HCl XL 300 mg PO DAILY cholecalciferol (vitamin D3) 50 mcg PO DAILY clonidine HCl 0.2 mg PO BEDTIME docusate sodium 100 mg PO BID duloxetine 120 mg PO DAILY ferrous sulfate (FeroSul) 325 mg PO BID finasteride (Proscar) 5 mg PO DAILY 90 days fluticasone propionate 50 mcg/actuation 2 sprays intranasal DAILY furosemide 40 mg PO DAILY gabapentin 100 mg PO DAILY hydralazine 100 mg PO TID isosorbide mononitrate ER 60 mg PO DAILY levothyroxine 75 mcg PO DAILY meclizine 25 mg PO TID PRN metformin 1 tab PO TIDWMEAL metoprolol succinate ER 200 mg PO DAILY montelukast 10 mg PO BEDTIME amihafmc-jgd-VR-lycopen-lutein 0.4 mg-300 mcg- 250 mcg (Cerovite Senior) 1 tab PO DAILY nitroglycerin 0.4 mg sublingual Q5M PRN polyethylene glycol 3350 17 grams PO DAILY sulfamethoxazole-trimethoprim 800-160 mg (Bactrim DS) 1 tab PO BID tamsulosin 0.4 mg PO BEDTIME trazodone 150 mg PO BEDTIME triamcinolone acetonide 0.1% 1 appl topical DAILY HPI HPI hemeturia/ nathan cath/ VT: Details: removal of 24fr catheter, patient tolerated well. No VT per Dr. Boucher. Advised patient do drink lots of water and call office by 2pm if unable to urinate. P atient given macrobid antibiotic in office prior to nathan catheter removal. HPI Comments Details: Emory is a 73-year-old male who was initially evaluated inpatient at [facility]. He presented on 11/16/2023 to the emergency room with complaints of not being able to urinate. Urology was consulted due to difficult catheterization and then was asked to re-evaluate due to gross hematuria. CT imaging 11/17/2023 noted heterogeneous material in the bladder may represent clot, mild dilatation bilaterally of renal system to the level of the bladder no renal calcifications noted-no renal masses noted. The patient has a [address] He is on tamsulosin 0.4 mg daily. Plan is to remove catheter and he is to return by 14:00 if he is unable to void. I will empirically place him on Bactrim DS 1 tab twice a day and start Proscar 5 mg daily. Follow-up in 1 month for office cystoscopy. [facility] Medical History LUCA (obstructive sleep apnea) Obesity (BMI 30-39.9) Lipoma of neck Coronary artery disease Chronic low back pain Asthma Hyperlipidemia BPH (benign prostatic hyperplasia) Diabetes Personal history of COVID-19 Hypertension Allergic rhinitis COPD (chronic obstructive pulmonary disease) Surgical History History of surgery of head Hx of shoulder surgery Hx of umbilical hernia repair History of surgery Hx of bilateral cataract extraction Hx of cardiac catheterization Hx of circumcision History of esophagogastroduodenoscopy (EGD) H/O colonoscopy Family History Mother No problems noted. Father No problems noted. 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) Alcohol intake: never Patient Tobacco Use Status: Never used Tobacco Advance Directives Date on File: 05/14/20 service: No Review of Systems Const All systems reviewed & are unremarkable except as noted in HPI and below Reports no additional complaints Eyes Reports no additional complaints ENT Reports no additional complaints Card Reports no additional complaints Resp Reports no additional complaints GI Reports no additional complaints Reports as per HPI Musc Reports no additional complaints Skin/Breast Reports system reviewed and no additional complaints, except as documented Neuro Reports no additional complaints Psych Reports no additional complaints Endo Reports no additional complaints Keegan/Lymph Reports no additional complaints Aller/Immun Reports no additional complaints Physical Exam Const General: healthy appearing and no acute distress Nutritional Appearance: overweight Orientation/consciousness: patient oriented x3 HEENT Head: Yes normocephalic and Yes atraumatic Eyes Conjunctivae: conjunctivae normal Neck Neck: Yes normal visual inspection Chest Chest palpation & inspection: normal inspection of the chest Resp Effort & Inspection: normal respiratory effort GI Inspection: Yes normal to inspection Palpation (GI): Soft to palpation Other: Nathan in place Penis: normal penis Scrotum: scrotum normal Neuro General: patient oriented x3 Extrem General: No pedal edema Psych Appearance: grossly normal Affect: normal affect Results Reviewed Results Reviewed: Date of Service: 11/17/23 EXAMINATION: CT ABDOMEN AND PELVIS WITHOUT CONTRAST CLINICAL INFORMATION: Pain. Recent Nathan catheter placement. COMPARISON: 11/16/2023 TECHNIQUE: Multidetector volumetric imaging was performed from the superior aspect of the liver through the pubic symphysis. Sagittal and coronal reformatted images were obtained on the technologist's workstation. This CT examination was performed using dose optimization techniques as appropriate, variously including the following: *Automated exposure control *Adjustment of mA and/or kV according to patient size (this includes techniques or standardized protocols for targeted exams where dose is matched to indication/reason for exam; i.e. extremities or head) *Use of iterative reconstruction technique DLP: 742 mGy-cm FINDINGS: LUNG BASES: There is scarring at the right lung base. LIVER, GALLBLADDER, AND BILIARY TREE: The liver is normal in size, shape, and attenuation. No focal hepatic lesion or biliary ductal dilatation is present. There has been a prior cholecystectomy. PANCREAS: Unremarkable. SPLEEN: Unremarkable. ADRENAL GLANDS: There is a stable low-density right adrenal lesion. KIDNEYS AND URETERS: The kidneys are again seen to be irregular in contour. Bilateral renal collecting system and ureteral prominence are again seen extending into the urinary bladder. BLADDER: A Nathan catheter extends into the urinary bladder. There is heterogeneous dense material within the urinary bladder intermixed with some air lucencies. The urinary bladder is distended. GASTROINTESTINAL TRACT: There are diverticula of the descending colon without diverticulitis. There is no evidence for appendicitis. ABDOMINAL WALL: No significant hernia is appreciated. LYMPH NODES: Normal. VASCULAR: There is atherosclerotic plaque of the abdominal aorta and proximal branches. PELVIC VISCERA: Significant prostate gland hypertrophy is again seen. OSSEOUS STRUCTURES: Unremarkable. IMPRESSION: 1. Nathan catheter extends into the urinary bladder. The urinary bladder is distended. There is heterogeneous dense material intermixed with some air lucencies within the urinary bladder which may represent blood products. 2. There is bilateral renal collecting system and ureteral prominence extending into the urinary bladder. 3. Significant prostate gland hypertrophy. 4. Diverticulosis of the descending colon without diverticulitis. 5. Stable low-density right adrenal lesion. Assessment & Plan Assessment & Plan (1) Urinary retention: Code(s): R33.9 - Retention of urine, unspecified Category: Medical (2) BPH (benign prostatic hyperplasia): Code(s): N40.0 - Benign prostatic hyperplasia without lower urinary tract symptoms Category: Medical (3) Hematuria: Code(s): R31.9 - Hematuria, unspecified Category: Medical Plan Follow-up office cystoscopy. Empirical treatment Bactrim DS 1 tab twice a day for 5 days Medications: New sulfamethoxazole-trimethoprim 800-160 mg (Bactrim DS) 1 tab PO BID 10 tabs 0RF finasteride (Proscar) 5 mg PO DAILY 90 days 90 tabs 3RF Patient Instructions: The patient had an opportunity to ask questions regarding treatment plan. The patient expressed understanding and agreement with the above treatment plan. The patient is aware they should contact our office by phone for worsening of their current condition or the appearance of new symptoms. Compliance is e ncouraged with any medications and followup testing that is ordered. It is a privilege to be allowed the opportunity to participate in the urologic care of your patient. If you have any questions or concerns regarding treatment for the above conditions please do not hesitate to contact me. The office telephone contact is [phone]. This note is constructed in part using voice recognition software. While every effort has been made to ensure accuracy income tax analyst errors may have been included. Yours sincerely, Narda Hernandez MD Coding Level of Care Code Est Pt Level 4 (13382) Complex EM visit Add On G2211 Diagnoses Urinary retention R33.9 BPH (benign prostatic hyperplasia) N40.0 Hematuria R31.9
== END 2023-12-16 09:01 | disposition home or self-care (01) ==
PROVIDERS: PCP Family Medicine; Visit Provider Urology
DX: R33.9 Retention of urine, unspecified (principal); N40.0 Benign prostatic hyperplasia without lower urinary tract symptoms; R31.9 Hematuria, unspecified
CPT/HCPCS: 99214; G2211

== ENCOUNTER → 2023-12-16 08:11 | Outpatient (BNVA) | payer OTHER, SELFPAY | PROVIDERS: PCP Family Medicine; Visit Provider Urology | DX: N40.1 Benign prostatic hyperplasia with lower urinary tract symptoms (principal); R33.8 Other retention of urine; R31.9 Hematuria, unspecified | CPT/HCPCS: 99212 ==

== ENCOUNTER 2023-12-16 20:11 | Emergency (ER) | payer OTHER, SELFPAY ==
--- NOTE | ~2023-12-16 | US_ITS ---
EXAMINATION: US PELVIS LIMITED (BLADDER) CLINICAL INFORMATION: Unable to void after catheter removal. COMPARISON: None available. TECHNIQUE: Real-time imaging of the bladder. US/US bladder FINDINGS / IMPRESSION: BLADDER: The urinary bladder is distended, measuring 18.6 x 10.5 x 10.7 cm. This correlates with a volume of 1089 mL.
[2023-12-16 20:40] VITALS: BP 170/100; BP 216/104; PULSE 103; PULSE 93; RESP 16; TEMP 36.9; O2SAT 98; BMI 42.6
--- NOTE | 2023-12-16 21:06 | ED_ITS ---
HPI - General Adult General Chief complaint: General Medical Stated complaint: has catheter removed earlier, now can't urinate Time Seen by Provider: 12/16/23 20:45 Source: patient and EMS Mode of arrival: EMS Limitations: no limitations History of Present Illness ED Provider: Dr. Ifeoma Prince HPI narrative: Patient comes to the emergency room complaining of severe suprapubic pressure. Patient states that he can not urinate. Earlier today, patient states that he went to see Urology for Quintanilla catheter removal. Patient states that within the last 4 hours he has not been able to urinate, now he has significant pressure and pain from not being able to urinate. Related Data Home Medications ?Medication ?Instructions ?Recorded ?Confirmed atorvastatin 40 mg tablet 40 mg PO DAILY 10/24/20 12/16/23 budesonide-formoterol HFA 160 2 puff inhalation BID 10/24/20 12/16/23 mcg-4.5 mcg/actuation aerosol inhaler duloxetine 60 mg capsule,delayed 120 mg PO DAILY 10/24/20 12/16/23 release fluticasone propionate 50 2 spray intranasal DAILY 10/24/20 12/16/23 mcg/actuation nasal spray,suspension furosemide 40 mg tablet 40 mg PO DAILY 10/24/20 12/16/23 gabapentin 100 mg capsule 100 mg PO DAILY Pain 10/24/20 12/16/23 isosorbide mononitrate 60 mg 60 mg PO DAILY 10/24/20 12/16/23 tablet,extended release 24 hr levothyroxine 75 mcg tablet 75 mcg PO DAILY 10/24/20 12/16/23 meclizine 25 mg tablet 25 mg PO TID PRN Vertigo 10/24/20 12/16/23 montelukast 10 mg tablet 10 mg PO BEDTIME 10/24/20 12/16/23 tamsulosin 0.4 mg capsule 0.4 mg PO BEDTIME 10/24/20 12/16/23 trazodone 150 mg tablet 150 mg PO BEDTIME Insomnia 10/24/20 12/16/23 aspirin 81 mg tablet,delayed 1 tab PO DAILY 05/19/21 12/16/23 release hydralazine 100 mg tablet 100 mg PO TID 05/19/21 12/16/23 metformin 500 mg tablet 1 tab PO TIDWMEAL 05/19/21 12/16/23 clonidine HCl 0.2 mg tablet 0.2 mg PO BEDTIME 07/29/22 12/16/23 acetaminophen 650 mg 650 mg PO TID 04/05/23 12/16/23 tablet,extended release ascorbic acid (vitamin C) 250 mg 250 mg PO DAILY 04/05/23 12/16/23 tablet (Vitamin C) bupropion HCl 300 mg 24 hr tablet, 300 mg PO DAILY 04/05/23 12/16/23 extended release cholecalciferol (vitamin D3) 50 50 mcg PO DAILY 04/05/23 12/16/23 mcg (2,000 unit) capsule docusate sodium 100 mg capsule 100 mg PO BID 04/05/23 12/16/23 rqvykfvk-vih-eofjs acid 0.4 1 tab PO DAILY 04/05/23 12/16/23 mg-lycopene 300 mcg-lutein 250 mcg tablet (Cerovite Senior) albuterol sulfate 90 mcg/actuation 2 puff inhalation Q4-6H PRN 06/24/23 12/16/23 aerosol inhaler (Ventolin HFA) Shortness Of Breath Or Wheezing triamcinolone acetonide 0.1 % 1 appl topical DAILY 06/24/23 12/16/23 topical ointment albuterol sulfate 2.5 mg/3 mL 2.5 mg inhalation Q4H PRN 11/16/23 12/16/23 (0.083 %) solution for nebulization Shortness Of Breath Or Wheezing ferrous sulfate 325 mg (65 mg 325 mg PO BID 11/16/23 12/16/23 iron) tablet (FeroSul) metoprolol succinate 200 mg 200 mg PO DAILY 11/16/23 12/16/23 tablet,extended release 24 hr nitroglycerin 0.4 mg sublingual 0.4 mg sublingual Q5M PRN Chest 11/16/23 12/16/23 tablet Pain polyethylene glycol 3350 17 17 g PO DAILY 11/16/23 12/16/23 gram/dose oral powder Previous Rx's ?Medication ?Instructions ?Recorded finasteride 5 mg tablet (Proscar) 5 mg PO DAILY 90 days #90 tabs 12/16/23 sulfamethoxazole 800 1 tab PO BID #10 tabs 12/16/23 mg-trimethoprim 160 mg tablet (Bactrim DS) tamsulosin 0.4 mg capsule (Flomax) 0.4 mg PO BEDTIME #20 caps 12/16/23 Allergies Allergy/AdvReac Type Severity Reaction Status Date / Time No Known Allergies Allergy Verified 12/16/23 20:43 Review of Systems Review of Systems: Constitutional : No Weight loss, No Fever, No Chills, No Night Sweats, No Fatigue, No Malaise ENT/Mouth : No Hearing loss, No Ear Pain, No Nasal Congestion, No Sinus Pain, No Hoarseness, No sore throat, No Rhinorrhea, No Swallowing Difficulty Eyes: No Eye Pain, No Swelling, No Redness, No Foreign Body, No Discharge, No Vision Changes Cardiovascular : No Chest Pain, No SOB, No Dyspnea on Exertion, No Orthopnea, No Edema, No Palpitations Respiratory : No Cough, No Sputum, No Wheezing, No Smoke Exposure, No Dyspnea Gastrointestinal : No Nausea, No Vomiting, No Diarrhea, No Constipation, No abdominal Pain, No Hematochezia, No Melena Genitourinary : Complaining of not being able to urinate for 4 hours, no hematuria or dysuria, no flank pain Musculoskeletal : No joint pain, No Myalgias, No Joint Swelling Skin : No Skin Lesions, No rash Neuro : No Weakness, No Numbness, No Paresthesias, No Loss of Consciousness, No Dizziness, No Headache Psych : No Anxiety/Panic, No Depression, No SI/HI/AH/VH, No Social Issues, Heme/Lymph: No Bruising, No Bleeding,No Lymphadenopathy Endocrine : No Polyuria, No Polydipsia, No Temperature Intolerance PMFSH Past Medical History Medical History LUCA (obstructive sleep apnea) Obesity (BMI 30-39.9) Lipoma of neck Coronary artery disease Chronic low back pain Asthma Hyperlipidemia BPH (benign prostatic hyperplasia) Diabetes Personal history of COVID-19 Hypertension Allergic rhinitis COPD (chronic obstructive pulmonary disease) Surgical History History of surgery of head Hx of shoulder surgery Hx of umbilical hernia repair History of surgery Hx of bilateral cataract extraction Hx of cardiac catheterization Hx of circumcision History of esophagogastroduodenoscopy (EGD) H/O colonoscopy Family History Family History Mother No problems noted. Father No problems noted. 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 Oriented X3. Very uncomfortable Eyes: Pupils equal, round and reactive to light. ENT: Pharynx normal. Neck: Normal inspection. Neck supple. No lymph nodes noted. No crepitus CVS: Normal heart rate and rhythm. Pulses normal. Normal S1 and S2 Respiratory: No respiratory distress. Breath sounds normal. No Wheezing. No rales Abdomen: Soft , palpable bladder on physical exam, bedside ultrasound shows greater than 1200 mL of urine Skin: Skin warm and dry. Normal skin color. Normal skin turgor. Extremities: No lower extremity edema. No Lacerations. No Rash Neuro: Oriented X 3. No motor deficit. No sensory deficit. Moving all extr emities. No slurred speech. CN 2 through 12 grossly intact Psych: calm, cooperative, normal affect Medical Decision Making Medical Decision Making MDM Narrative: -discussed with the patient that this time he may need a Quintanilla catheter a bit longer. Patient will follow-up with Urology. -on arrival, patient's blood pressure was above 200 systolic, secondary to pain and discomfort. Once patient urinated, patient's blood pressure dropped to the 160s. -patient feeling much better, patient aware that he will need to keep the Quintanilla catheter until he is seen by Urology again. Flomax has been sent to the patient's pharmacy. Critical Care Time Critical Care Time Critical Care Time: Yes Total Critical Care Time: 35 Attestation: Please follow-up with your primary care physician tomorrow. If you have any worsening or new symptoms, please return to the emergency room or call 911 Discharge Plan Discharge Clinical Impression: Acute urinary retention Patient Disposition: Home, Self-Care Instructions: Urinary Retention in Men (ED) Additional Instructions: You will need to keep the Quintanilla until you see urology. Please call tomorrow for an appointment. Please follow-up with your primary care physician tomorrow. If you have any worsening or new symptoms, please return to the emergency room or call 911 Prescriptions: New tamsulosin [Flomax] 0.4 mg capsule 0.4 mg PO BEDTIME Qty: 20 0RF No Action albuterol sulfate [Ventolin HFA] 90 mcg/actuation Hfa Aerosol Inhaler 2 puff INHALATION Q4-6H PRN (Reason: Shortness Of Breath Or Wheezing) triamcinolone acetonide 0.1 % ointment 1 appl topical DAILY metformin 500 mg tablet 1 tab PO TIDWMEAL aspirin 81 mg tablet,delayed release (DR/EC) 1 tab PO DAILY Hold Instructions: Resume on 11/30/23. hydralazine 100 mg tablet 100 mg PO TID albuterol sulfate 2.5 mg /3 mL (0.083 %) solution for nebulization 2.5 mg inhalation Q4H PRN (Reason: Shortness Of Breath Or Wheezing) metoprolol succinate 200 mg tablet extended release 24 hr 200 mg PO DAILY ferrous sulfate [FeroSul] 325 mg (65 mg iron) tablet 325 mg PO BID nitroglycerin 0.4 mg tablet, sublingual 0.4 mg sublingual Q5M PRN (Reason: Chest Pain) polyethylene glycol 3350 17 gram/dose powder 17 g PO DAILY atorvastatin 40 mg tablet 40 mg PO DAILY budesonide-formoterol 160-4.5 mcg/actuation HFA aerosol inhaler 2 puff inhalation BID duloxetine 60 mg capsule,delayed release(DR/EC) 120 mg PO DAILY fluticasone propionate 50 mcg/actuation spray,suspension 2 spray intranasal DAILY furosemide 40 mg tablet 40 mg PO DAILY gabapentin 100 mg capsule 100 mg PO DAILY isosorbide mononitrate 60 mg tablet extended release 24 hr 60 mg PO DAILY levothyroxine 75 mcg tablet 75 mcg PO DAILY meclizine 25 mg tablet 25 mg PO TID PRN (Reason: Vertigo) montelukast 10 mg tablet 10 mg PO BEDTIME tamsulosin 0.4 mg capsule 0.4 mg PO BEDTIME trazodone 150 mg tablet 150 mg PO BEDTIME clonidine HCl 0.2 mg tablet 0.2 mg PO BEDTIME sulfamethoxazole-trimethoprim [Bactrim DS] 800-160 mg tablet 1 tab PO BID Qty: 10 0RF finasteride [Proscar] 5 mg tablet 5 mg PO DAILY 90 Days Qty: 90 3RF acetaminophen 650 mg tablet extended release 650 mg PO TID ascorbic acid (vitamin C) [Vitamin C] 250 mg tablet 250 mg PO DAILY docusate sodium 100 mg capsule 100 mg PO BID bupropion HCl 300 mg tablet extended release 24 hr 300 mg PO DAILY Cerovite Senior 0.4 mg-300 mcg- 250 mcg tablet 1 tab PO DAILY cholecalciferol (vitamin D3) 50 mcg (2,000 unit) capsule 50 mcg PO DAILY Referrals: Narda Hernandez MD [Physician] - 12/17/23 Print Language: Bolivian
--- NOTE | 2023-12-16 21:25 | PC.NURSE ---
pt unable to void, ultrasound of the bladder,>1000 in bladder, nathan placed by Dr. Prince
[2023-12-16 21:28] VITALS: BP 135/82; PULSE 74; RESP 16; TEMP 36.3; O2SAT 96
--- NOTE | 2023-12-16 21:35 | MHC.EDTECH ---
Patient nathan out put was 1600 ml .
[2023-12-16 21:36] VITALS: BP 135/82; PULSE 76; RESP 16; TEMP 36.3; O2SAT 96
--- NOTE | 2023-12-16 21:37 | PC.NURSE ---
reviewed discharge instructions with pt, pt verbalized understanding, Educated of Quintanilla care and reviewed follow up appointments.
== END 2023-12-16 21:38 | disposition home or self-care (01) ==
PROVIDERS: Emergency Provider Emergency Medicine; PCP Family Medicine
DX: N39.0 Urinary tract infection, site not specified (principal); R39.198 Other difficulties with micturition; J45.909 Unspecified asthma, uncomplicated; I10 Essential (primary) hypertension; Z79.899 Other long term (current) drug therapy
CPT/HCPCS: 76857; 99284; 99285

== ENCOUNTER 2023-12-18 11:47 | Emergency (ER) | payer OTHER, SELFPAY ==
--- NOTE | ~2023-12-18 | CT_ITS ---
EXAMINATION: CT ABDOMEN AND PELVIS WITHOUT CONTRAST CLINICAL INFORMATION: Urinary retention, hematuria COMPARISON: CT abdomen and pelvis 11/17/2023 TECHNIQUE: Multidetector volumetric imaging was performed from the superior aspect of the liver through the pubic symphysis. Sagittal and coronal reformatted images were obtained on the technologist's workstation. This CT examination was performed using dose optimization techniques as appropriate, variously including the following: *Automated exposure control *Adjustment of mA and/or kV according to patient size (this includes techniques or standardized protocols for targeted exams where dose is matched to indication/reason for exam; i.e. extremities or head) *Use of iterative reconstruction technique DLP: 673 mGy-cm FINDINGS: LUNG BASES: The visualized lung bases are unremarkable. LIVER, GALLBLADDER, AND BILIARY TREE: The liver is normal in size, shape, and attenuation. No focal hepatic lesion or biliary ductal dilatation is present. The gallbladder is surgically absent. PANCREAS: Unremarkable. SPLEEN: Unremarkable. ADRENAL GLANDS: Unchanged right adrenal adenoma measuring 1.8 cm. KIDNEYS AND URETERS: The kidneys are normal in size, shape, and attenuation. Punctate stones in the right kidney. BLADDER: Decompressed bladder with Quintanilla catheter in place, and diffusely thick walled. Soft tissue stranding around the bladder. GASTROINTESTINAL TRACT: The small and large bowel are unremarkable. The appendix is unremarkable. ABDOMINAL WALL: No significant hernia is appreciated. LYMPH NODES: Normal. VASCULAR: Unremarkable. PELVIC VISCERA: Marked prostatomegaly. OSSEOUS STRUCTURES: Unremarkable. CT/CT abdomen pelvis wo IV con IMPRESSION: 1. Punctate stones in the right kidney. 2. The bladder is decompressed and thick walled, with surrounding fat stranding. 3. Marked prostatomegaly. Fleischner guidelines were followed.
[2023-12-18 12:05] VITALS: BP 152/84; PULSE 90; O2SAT 96
[2023-12-18 12:06] VITALS: BMI 32.4
[2023-12-18 12:11] VITALS: BP 127/73; PULSE 90; RESP 16; TEMP 36.8; O2SAT 96
--- NOTE | 2023-12-18 12:27 | ED.MALEGU ---
HPI - Male Genitourinary General Chief complaint: Urogenital-Male Stated complaint: BLEEDING IN ARAGON CATH CANNOT URINATE Time Seen by Provider: 12/18/23 12:23 History of Present Illness HPI Narrative: patient complains of blood in his Aragon catheter which was placed 3 days ago in the ER and is very uncomfortable as he feels the catheter is blocked and it is not draining his urine and he feels like he is retaining urine and is very uncomfortable He has had problems with the urine and has been using a Aragon catheter for most of the last month He was in the hospital at the end of October where a catheter was placed for urinary retention Three days ago the catheter was removed in the urologist's office, he return to this ER the same night as he could not urinate and a new catheter was placed, but last night the catheter became blocked and he became very uncomfortable and he noticed a was filling with blood and blood clots He denies fever and chills, denies flank pain denies nausea and vomiting denies chest pain Related Data Home Medications ?Medication ?Instructions ?Recorded ?Confirmed atorvastatin 40 mg tablet 40 mg PO DAILY 10/24/20 12/16/23 budesonide-formoterol HFA 160 2 puff inhalation BID 10/24/20 12/16/23 mcg-4.5 mcg/actuation aerosol inhaler duloxetine 60 mg capsule,delayed 120 mg PO DAILY 10/24/20 12/16/23 release fluticasone propionate 50 2 spray intranasal DAILY 10/24/20 12/16/23 mcg/actuation nasal spray,suspension furosemide 40 mg tablet 40 mg PO DAILY 10/24/20 12/16/23 gabapentin 100 mg capsule 100 mg PO DAILY Pain 10/24/20 12/16/23 isosorbide mononitrate 60 mg 60 mg PO DAILY 10/24/20 12/16/23 tablet,extended release 24 hr levothyroxine 75 mcg tablet 75 mcg PO DAILY 10/24/20 12/16/23 meclizine 25 mg tablet 25 mg PO TID PRN Vertigo 10/24/20 12/16/23 montelukast 10 mg tablet 10 mg PO BEDTIME 10/24/20 12/16/23 tamsulosin 0.4 mg capsule 0.4 mg PO BEDTIME 10/24/20 12/16/23 trazodone 150 mg tablet 150 mg PO BEDTIME Insomnia 10/24/20 12/16/23 aspirin 81 mg tablet,delayed 1 tab PO DAILY 05/19/21 12/16/23 release hydralazine 100 mg tablet 100 mg PO TID 05/19/21 12/16/23 metformin 500 mg tablet 1 tab PO TIDWMEAL 05/19/21 12/16/23 clonidine HCl 0.2 mg tablet 0.2 mg PO BEDTIME 07/29/22 12/16/23 acetaminophen 650 mg 650 mg PO TID 04/05/23 12/16/23 tablet,extended release ascorbic acid (vitamin C) 250 mg 250 mg PO DAILY 04/05/23 12/16/23 tablet (Vitamin C) bupropion HCl 300 mg 24 hr tablet, 300 mg PO DAILY 04/05/23 12/16/23 extended release cholecalciferol (vitamin D3) 50 50 mcg PO DAILY 04/05/23 12/16/23 mcg (2,000 unit) capsule docusate sodium 100 mg capsule 100 mg PO BID 04/05/23 12/16/23 auprosfu-bzf-vanjr acid 0.4 1 tab PO DAILY 04/05/23 12/16/23 mg-lycopene 300 mcg-lutein 250 mcg tablet (Cerovite Senior) albuterol sulfate 90 mcg/actuation 2 puff inhalation Q4-6H PRN 06/24/23 12/16/23 aerosol inhaler (Ventolin HFA) Shortness Of Breath Or Wheezing triamcinolone acetonide 0.1 % 1 appl topical DAILY 06/24/23 12/16/23 topical ointment albuterol sulfate 2.5 mg/3 mL 2.5 mg inhalation Q4H PRN 11/16/23 12/16/23 (0.083 %) solution for nebulization Shortness Of Breath Or Wheezing ferrous sulfate 325 mg (65 mg 325 mg PO BID 11/16/23 12/16/23 iron) tablet (FeroSul) metoprolol succinate 200 mg 200 mg PO DAILY 11/16/23 12/16/23 tablet,extended release 24 hr nitroglycerin 0.4 mg sublingual 0.4 mg sublingual Q5M PRN Chest 11/16/23 12/16/23 tablet Pain polyethylene glycol 3350 17 17 g PO DAILY 11/16/23 12/16/23 gram/dose oral powder Previous Rx's ?Medication ?Instructions ?Recorded finasteride 5 mg tablet (Proscar) 5 mg PO DAILY 90 days #90 tabs 12/16/23 sulfamethoxazole 800 1 tab PO BID #10 tabs 12/16/23 mg-trimethoprim 160 mg tablet (Bactrim DS) tamsulosin 0.4 mg capsule (Flomax) 0.4 mg PO BEDTIME #20 caps 12/16/23 cefuroxime axetil 250 mg tablet 250 mg PO BID 7 days #14 tabs 12/18/23 Allergies Allergy/AdvReac Type Severity Reaction Status Date / Time No Known Allergies Allergy Verified 12/18/23 12:09 [facility] Past Medical History Source: nursing notes reviewed Medical History LUCA (obstructive sleep apnea) Obesity (BMI 30-39.9) Lipoma of neck Coronary artery disease Chronic low back pain Asthma Hyperlipidemia BPH (benign prostatic hyperplasia) Diabetes Personal history of COVID-19 Hypertension Allergic rhinitis COPD (chronic obstructive pulmonary disease) Surgical History History of surgery of head Hx of shoulder surgery Hx of umbilical hernia repair History of surgery Hx of bilateral cataract extraction Hx of cardiac catheterization Hx of circumcision History of esophagogastroduodenoscopy (EGD) H/O colonoscopy Family History Family History Mother No problems noted. Father No problems noted. 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) Alcohol intake: never Patient Tobacco Use Status: Never used Tobacco Smoked in Last 30 Days: No Use of substances other than those prescribed or required for medical reasons: No Advance Directives: No Advance Directives Information Provided: No Advance Directives Date on File: 05/14/20 Do you have a plan to hurt others: No Plan service: No Physical Exam Vital Signs: Vital Signs: Last Vital Signs Temp 99.3 F 12/18/23 18:59 Pulse 88 12/18/23 18:59 Resp 22 H 12/18/23 18:59 BP 145/71 H 12/18/23 18:59 Pulse Ox 94 12/18/23 18:59 O2 Del Method Room Air 12/18/23 18:59 BMI result Body Mass Index 32.4 patient appears uncomfortable but no acute distress speaking full sentences breathing comfortably The pharynx is clear and membranes are moist Neck is supple Chest is clear to auscultation bilateral Heart no murmur The abdomen had suprapubic tenderness no rebound no guarding Extremities full range of motion x 4 Course Course Course Narrative: Aragon was placed and drained a 1000 mL of urine and patient felt much better It was irrigated with no further blood or clots Patient was observed for 2 hours with no further blood or clots Urine was noted to have negative Glutose negative ketones but 20 rbc's and 50 wbc's with trace bacteria, urine was cloudyWhite count White count was 15 likely from stress and discomfort, hemoglobin hematocrit were 10 and 31 which is consistent with his previous chemistry Chemistry showed a normal kidney function, normal creatinine, no other acute abnormalities B and P 132 is noted, patient has no shortness of breath he does have some edema, no acute shortness of breath CT scan did not show any acute abnormalities in the visualized portion of the chest was clear, patient has no evidence of any acute CHF he rests comfortably laying on his back Case was discussed w [facility] attending physicians carly who agreed patient will be treated for likely urinary tract infection with cloudy urine more wbc's than RBCs and trace bacteria Patient will follow with urology office and return here immediately for any more blood or blockages Medical Decision Making Lab Data [facility] Lab Attestation statement: I reviewed the patient's lab results. 12/18/23 12:23 12/18/23 12:23 Labs: Lab Results 12/18/23 12/18/23 12/18/23 Range/Units 12:23 12:27 15:23 WBC 15.2 H (4.8-10.8) X10*3/uL RBC 3.64 L (4.60-5.80) X10*6/uL Hgb 10.8 L (14.0-18.0) g/dl Hct 31.6 L (42.0-52.0) % MCV 86.8 (80.0-98.0) fL MCH 29.7 (27.0-33.0) pg MCHC 34.2 (31.0-36.0) g/dl RDW 14.6 (11.0-16.0) % Plt Count 193 D (160-400) X10*3/uL MPV 8.8 L (9.4-12.4) fL Immature Gran % (Auto) 0.7 H (0.0-0.4) % Neut % (Auto) 79.1 H (45-73) % Lymph % (Auto) 7.1 L (20-40) % Sebastian % (Auto) 12.7 H (2-11) % Eos % (Auto) 0.1 (0-4) % Baso % (Auto) 0.3 (0-2) % Lymph # (Auto) 1.1 L (1.2-4.9) X10*3/uL Sebastian # (Auto) 1.9 H (0.1-1.2) X10*3/uL Eos # (Auto) 0.0 (0.0-0.4) X10*3/uL Baso # (Auto) 0.1 (0.0-0.2) X10*3/uL Abs Immat Gran (auto) 0.10 H (0.00-0.03) X10*3/uL Absolute Neuts (auto) 12.0 H (2.0-8.3) x10*3/uL Absolute Nucleated RBC 0.000 (0.0-0.012) X10*3/uL Nucleated RBC % (auto) 0.0 (0.0-0.2) /100WBC Smear Tech's Comments VERIFIED PT 14.4 H (11.1-13.3) SEC INR 1.2 H (0.9-1.1) APTT 33.9 (26.0-36.8) SEC Sodium 137 (135-145) mmol/L Potassium 3.5 (3.3-5.1) mmol/L Chloride 102 (96-108) mmol/L Carbon Dioxide 26 (22-29) mmol/L Anion Gap 13 (12-20) BUN 10 (9-16) mg/dL Creatinine 1.14 (0.5-1.4) mg/dL Estim Creat Clear Calc 65.0 Estimated GFR > 60 Random Glucose 183 H (60-115) mg/dL Calcium 9.6 (8.4-10.2) mg/dL Total Bilirubin 0.7 (0.0-1.0) mg/dL AST 14 (5-37) U/L ALT 15 (0-40) U/L Alkaline Phosphatase 50 (39-117) U/L B-Natriuretic Peptide 132 H (<100) pg/mL Total Protein 6.5 (6.5-8.0) g/dL Albumin 3.7 (3.5-5.0) g/dL Urine Color Yellow Urine Appearance Turbid Urine pH 7.0 (5.0-9.0) Ur Specific [place] 1.010 (1.005-1.025) Urine Protein 100 (2+) H (Neg-Trace) mg/dL Urine Glucose (UA) Negative (Negative) mg/dL Urine Ketones Negative (Negative) mg/dL Urine Blood Large (3+) H (Negative) Urine Nitrite Negative (Negative) Ur Leukocyte Esterase Large (3+) H (Negative) Urine RBC >20 H (0-2) /HPF Urine WBC >50 H (0-5) /HPF Ur Squamous Epith Cells 0-2 (0-2) /HPF Urine Bacteria Trace (None Seen) Hyaline Casts 11-20 (0-2) /LPF Blood Type O Positive Antibody Screen NEGATIVE Discharge Plan Discharge Clinical Impression: BPH (benign prostatic hyperplasia), Urinary retention, Hematuria, Urinary tract infection Patient Disposition: Home, Self-Care Additional Instructions: we placed a Aragon which drained a lot of urine We irrigated it and blood was cleared Testing showed you likely have a urinary tract infection Call your doctor's office for Urology follow-up on Wednesday Return to the ER any time if the Aragon is blocked, if there is blood in the Aragon if you develop a fever or any worse condition or any concerns Prescriptions: New cefuroxime axetil 250 mg tablet 250 mg PO BID 7 Days Qty: 14 0RF No Action albuterol sulfate [Ventolin HFA] 90 mcg/actuation Hfa Aerosol Inhaler 2 puff INHALATION Q4-6H PRN (Reason: Shortness Of Breath Or Wheezing) triamcinolone acetonide 0.1 % ointment 1 appl topical DAILY metformin 500 mg tablet 1 tab PO TIDWMEAL aspirin 81 mg tablet,delayed release (DR/EC) 1 tab PO DAILY Hold Instructions: Resume on 11/30/23. hydralazine 100 mg tablet 100 mg PO TID albuterol sulfate 2.5 mg /3 mL (0.083 %) solution for nebulization 2.5 mg inhalation Q4H PRN (Reason: Shortness Of Breath Or Wheezing) metoprolol succinate 200 mg tablet extended release 24 hr 200 mg PO DAILY ferrous sulfate [FeroSul] 325 mg (65 mg iron) tablet 325 mg PO BID nitroglycerin 0.4 mg tablet, sublingual 0.4 mg sublingual Q5M PRN (Reason: Chest Pain) polyethylene glycol 3350 17 gram/dose powder 17 g PO DAILY tamsulosin [Flomax] 0.4 mg capsule 0.4 mg PO BEDTIME Qty: 20 0RF atorvastatin 40 mg tablet 40 mg PO DAILY budesonide-formoterol 160-4.5 mcg/actuation HFA aerosol inhaler 2 puff inhalation BID duloxetine 60 mg capsule,delayed release(DR/EC) 120 mg PO DAILY fluticasone propionate 50 mcg/actuation spray,suspension 2 spray intranasal DAILY furosemide 40 mg tablet 40 mg PO DAILY gabapentin 100 mg capsule 100 mg PO DAILY isosorbide mononitrate 60 mg tablet extended release 24 hr 60 mg PO DAILY levothyroxine 75 mcg tablet 75 mcg PO DAILY meclizine 25 mg tablet 25 mg PO TID PRN (Reason: Vertigo) montelukast 10 mg tablet 10 mg PO BEDTIME tamsulosin 0.4 mg capsule 0.4 mg PO BEDTIME trazodone 150 mg tablet 150 mg PO BEDTIME clonidine HCl 0.2 mg tablet 0.2 mg PO BEDTIME sulfamethoxazole-trimethoprim [Bactrim DS] 800-160 mg tablet 1 tab PO BID Qty: 10 0RF finasteride [Proscar] 5 mg tablet 5 mg PO DAILY 90 Days Qty: 90 3RF acetaminophen 650 mg tablet extended release 650 mg PO TID ascorbic acid (vitamin C) [Vitamin C] 250 mg tablet 250 mg PO DAILY docusate sodium 100 mg capsule 100 mg PO BID bupropion HCl 300 mg tablet extended release 24 hr 300 mg PO DAILY Cerovite Senior 0.4 mg-300 mcg- 250 mcg tablet 1 tab PO DAILY cholecalciferol (vitamin D3) 50 mcg (2,000 unit) capsule 50 mcg PO DAILY Print Language: Swedish
[2023-12-18 12:30] LABS: Basophils Absolute Auto 0.1 X10*3/uL (0.0-0.2); Basophils Percent Auto 0.3 % (0-2); Eosinophils Percent Auto 0.1 % (0-4); Hematocrit 31.6 % (42.0-52.0); Hemoglobin 10.8 g/dl (14.0-18.0); Imm Gran Pct Auto 0.7 % (0.0-0.4); Lymphocytes Absolute Auto 1.1 X10*3/uL (1.2-4.9); Lymphocytes Percent Auto 7.1 % (20-40); MANUAL DIFF FLAG SCAN; Mean Corpuscular HGB Conc 34.2 g/dl (31.0-36.0); Mean Corpuscular Hemoglobin 29.7 pg (27.0-33.0); Mean Corpuscular Volume 86.8 fL (80.0-98.0); Mean Platelet Volume 8.8 fL (9.4-12.4); Monocytes Absolute Auto 1.9 X10*3/uL (0.1-1.2); Monocytes Percent Auto 12.7 % (2-11); Neutrophils Percent Auto 79.1 % (45-73); Platelet Count 193 X10*3/uL (160-400); Red Blood Count 3.64 X10*6/uL (4.60-5.80); Red Cell Distribution Width 14.6 % (11.0-16.0); SCAN SMEAR FLAG 1; White Blood Count 15.2 X10*3/uL (4.8-10.8)
[2023-12-18 12:35] LABS: INTERNATIONAL NORM RATIO 1.2 (0.9-1.1); Prothrombin Time 14.4 SEC (11.1-13.3)
[2023-12-18 12:37] LABS: Partial Thromboplastin Time 33.9 SEC (26.0-36.8)
[2023-12-18 12:44] LABS: Alanine Aminotransferase 15 U/L (0-40); Albumin Level 3.7 g/dL (3.5-5.0); Alkaline Phosphatase 50 U/L (39-117); Anion Gap 13 (12-20); Aspartate Amino Transferase 14 U/L (5-37); Bilirubin Total 0.7 mg/dL (0.0-1.0); Blood Urea Nitrogen 10 mg/dL (9-16); Calcium 9.6 mg/dL (8.4-10.2); Carbon Dioxide 26 mmol/L (22-29); Chloride 102 mmol/L (96-108); Estimated Glomerular Filt Rate > 60; Glucose Random 183 mg/dL (60-115); Potassium 3.5 mmol/L (3.3-5.1); Sodium 137 mmol/L (135-145); Total Protein 6.5 g/dL (6.5-8.0)
[2023-12-18 12:50] LABS: B Type Natriuretic Peptide 132 pg/mL (<100)
[2023-12-18 12:53] LABS: SLIDE REVIEW VERIFIED
--- NOTE | 2023-12-18 13:39 | PC.NURSE ---
original nathan catheter removed. 18Fr nathan catheter placed. 1000ml of cloudy pale yellow urine noted immediately post output.
--- NOTE | 2023-12-18 14:25 | PC.NURSE ---
pt to CT at this time.
[2023-12-18 15:17] VITALS: BP 152/73; PULSE 78; RESP 16; TEMP 36.9; O2SAT 98
[2023-12-18 15:36] LABS: Appearance Urine Turbid; Color Urine Yellow; Glucose Urine UA Negative (Negative); Leukocyte Esterase Urine Large (3+) (Negative); Nitrite Urine Negative (Negative); UMIC TRIGGER UACC YES; Urine Blood Large (3+) (Negative); Urine Ketones Negative (Negative); Urine Protein 100 (2+) mg/dL (Neg-Trace)
[2023-12-18 15:47] LABS: Bacteria Urine Trace (None Seen); RBC Urine >20 /HPF (0-2); Squamous Epithelial Cell Urine 0-2 /HPF (0-2); UACC Culture Trigger YES; WBC Urine >50 /HPF (0-5)
--- NOTE | 2023-12-18 15:58 | PC.NURSE ---
manual irrigation performed. pt tolerated well. no signs of clots/sediment present during irrigation.
[2023-12-18 16:42] VITALS: BP 151/76; PULSE 79; RESP 16; TEMP 36.7; O2SAT 96
[2023-12-18 18:59] VITALS: BP 145/71; PULSE 88; RESP 22; TEMP 37.4; O2SAT 94
[2023-12-18] MEDS: cefuroxime axetiL 250 MG TABLET PO (19:26)
[2023-12-18 19:40] VITALS: BP 145/71; PULSE 88; RESP 22; TEMP 37.4; O2SAT 94
== END 2023-12-18 19:42 | disposition home or self-care (01) ==
PROVIDERS: Emergency Provider Student in an Organized Health Care Education/Training Program
DX: N40.1 Benign prostatic hyperplasia with lower urinary tract symptoms (principal); R33.8 Other retention of urine; N39.0 Urinary tract infection, site not specified; R31.9 Hematuria, unspecified; E11.9 Type 2 diabetes mellitus without complications; I10 Essential (primary) hypertension; E78.5 Hyperlipidemia, unspecified; J44.9 Chronic obstructive pulmonary disease, unspecified; Z79.84 Long term (current) use of oral hypoglycemic drugs; Z79.82 Long term (current) use of aspirin; Z79.899 Other long term (current) drug therapy; Z79.02 Long term (current) use of antithrombotics/antiplatelets
CPT/HCPCS: 36415; 51702; 74176; 80053; 81001; 83880; 85025; 85610; 85730; 86850; 86900; 86901; 87086; 87088; 87186; 99284; 99285

== ENCOUNTER → 2024-01-03 10:01 | Outpatient (BNVA) | payer OTHER, SELFPAY | PROVIDERS: Visit Provider Urology | DX: R31.9 Hematuria, unspecified (principal); R33.9 Retention of urine, unspecified | CPT/HCPCS: 51700; 51798 ==

== ENCOUNTER 2024-01-26 14:06 | Outpatient (AMB) | payer OTHER, SELFPAY ==
--- NOTE | 2024-01-26 14:41 | A.OFFVIS_ITS ---
Intake Visit Reasons: Cysto Intake Note: Patient is Present for Cystoscopy/Stent Removal Urology Med: Tamsulosin, Antibiotic Allergy: None Blood Thinner:Aspirin (On Hold) URO- G Disposable Cystoscope lot: [id number] exp: 09/09/2026 Cloth Colors Examiner Required: Yes Cloth Colors Examiner Name: [id number] Roxane Allergies No Known Allergies Allergy (Verified 02/14/24 14:27) Medication List - Last Reconciled 01/26/24 by Narda Hernandez MD acetaminophen ER 650 mg PO TID PRN albuterol sulfate 90 mcg/actuation (Ventolin HFA) 2 puffs inhalation Q4-6H PRN ascorbic acid (vitamin C) (Vitamin C) 250 mg PO DAILY aspirin 1 tab PO DAILY atorvastatin 40 mg PO DAILY budesonide-formoterol 160-4.5 mcg/actuation (Symbicort) 2 puffs inhalation BID bupropion HCl XL 300 mg PO DAILY cetirizine 10 mg PO DAILY cholecalciferol (vitamin D3) (Vitamin D3) 50 mcg PO DAILY clonidine HCl 0.2 mg PO BEDTIME docusate sodium 100 mg PO BID duloxetine 120 mg PO DAILY finasteride (Proscar) 5 mg PO DAILY 90 days furosemide 40 mg PO DAILY gabapentin 100 mg PO DAILY hydralazine 100 mg PO TID isosorbide mononitrate ER 60 mg PO DAILY levothyroxine 75 mcg PO DAILY meclizine 25 mg PO TID PRN metformin 1 tab PO TIDWMEAL metoprolol succinate ER 100 mg PO DAILY montelukast 10 mg PO BEDTIME ygeaifpe-leg-IN-lycopen-lutein 0.4 mg-300 mcg- 250 mcg (Cerovite Senior) 1 tab PO DAILY polyethylene glycol 3350 17 grams PO DAILY quetiapine 200 mg PO DAILY sulfamethoxazole-trimethoprim 800-160 mg (Bactrim DS) 1 tab PO BID tamsulosin (Flomax) 0.4 mg PO BID 30 days temazepam 30 mg PO BEDTIME PRN tiotropium bromide (Spiriva with HandiHaler) 1 cap inhalation DAILY tramadol 50 mg PO DAILY PRN trazodone 150 mg PO BEDTIME PRN triamcinolone acetonide 0.1% 1 appl topical DAILY HPI Comments Details: 01/26/2024--here for cystoscopy. Nathan removed. Cystoscopy findings: moderate trabeculations, mild inflammatory changes consistent with cystitis, there was sediment in the bladder which made visualization suboptimal, no suspicious lesions seen. Pt does not want nathan replaced. Will empiracally treat with bactrim. cont tamsulosin, proscar. Pt to return for NELDA. 12/16/23--Emory is a 73-year-old male who was initially evaluated inpatient at [facility] [place]. He presented on 11/16/2023 to the emergency room with complaints of not being able to urinate. Urology was consulted due to difficult catheterization and then was asked to re-evaluate due to gross hematuria. CT imaging 11/17/2023 noted heterogeneous material in the bladder may represent clot, mild dilatation bilaterally of renal system to the level of the bladder no renal calcifications noted-no renal masses noted. The patient has a [address] He is on tamsulosin 0.4 mg daily. Plan is to remove catheter and he is to return by 14:00 if he is unable to void. I will empirically place him on Bactrim DS 1 tab twice a day and start Proscar 5 mg daily. Follow-up in 1 month for office cystoscopy. [facility] Medical History Sleep apnea Thyroid disease Depression LUCA (obstructive sleep apnea) Obesity (BMI 30-39.9) Lipoma of neck Coronary artery disease Chronic low back pain Asthma Hyperlipidemia BPH (benign prostatic hyperplasia) Diabetes Personal history of COVID-19 Hypertension Allergic rhinitis COPD (chronic obstructive pulmonary disease) Surgical History History of surgery of head Hx of shoulder surgery Hx of umbilical hernia repair History of surgery Hx of bilateral cataract extraction Hx of cardiac catheterization Hx of circumcision History of esophagogastroduodenoscopy (EGD) H/O colonoscopy Family History Mother No problems noted. Father No problems noted. Social History Household Members: None Housing: House Are you a primary before and after school daycare worker to a significant other at home: No Do you presently have visiting nurse or other home services: Yes (PRECISION INSTRUMENT MAKER) Alcohol intake: never Patient Tobacco Use Status: Never used Tobacco Advance Directives Date on File: 05/14/20 service: No Review of Systems Const All systems reviewed & are unremarkable except as noted in HPI and below Reports no additional complaints Eyes Reports no additional complaints ENT Reports no additional complaints Card Reports no additional complaints Resp Reports no additional complaints GI Reports no additional complaints Reports as per HPI Musc Reports no additional complaints Skin/Breast Reports system reviewed and no additional complaints, except as documented Neuro Reports no additional complaints Psych Reports no additional complaints Endo Reports no additional complaints Keegan/Lymph Reports no additional complaints Aller/Immun Reports no additional complaints Office Procedures Cystoscopy Consent Discussed risk and benefit or proposed procedure with the patient. Information consent for procedure given to the patient. Discussed technical aspects, risks, benefits and alternatives in full. Addressed all of the patient's questions and concerns regarding the procedure. The patient demonstrated knowledge and understanding. They wish to proceed with this procedure. Preparation The patient was prepped in the usual manner. A picture frame maker was present and in the room. Genitalia was prepped with betadine solution in a sterile manner. Lidocaine Jelly 2% was placed into the urethra and 16Fr flexible Olympus cystos cope was inserted into the meatus after adequate lubrication. Procedure Time out per protocol performed. Bladder Inspection Bladder Inspection: The bladder was inspected in its entirety with utilization retroflexion displaying: Tumor(s): no suspicious lesions visualized Trabeculation: moderate Mucosal Erthema: mild Orifices: normal shape and position Urethra: normal Cystoscopy findings: prostatic urethra trilobar enlargement, bulbous urethra WNL, moderate trabeculations, mild inflammatory changes consistent with cystitis, there was sediment in the bladder which made visualization suboptimal, no suspicious lesions seen. [id number] DISPOSABLE SCOPE URO-G FLEXIBLE SCOPE Procedure code (CPT) selection complete Office Meds lidocaine HCl 2 % mucosal jelly in applicator Performing Provider: Narda Hernandez MD Performing Location: [facility] [place] [facility] Administered by: Carrington Johns LPN on 01/26/24 15:09 Dose Route Admin Location Dispensed Lot Number Expiration Date NDC Cash Applications Coordinator 10 mL intra-urethral 20 mL naproxen 500 mg tablet Performing Provider: Narda Hernandez MD Performing Location: [facility] [place] [facility] Administered by: Carrington Johns LPN on 01/26/24 15:09 Dose Route Admin Location Dispensed Lot Number Expiration Date NDC Cash Applications Coordinator 500 mg PO 1 tab ciprofloxacin HCl 500 mg tablet Performing Provider: Narda Hernandez MD Performing Location: [facility] [place] [facility] Administered by: Carrington Johns LPN on 01/26/24 15:09 Dose Route Admin Location Dispensed Lot Number Expiration Date NDC Cash Applications Coordinator 500 mg PO 1 tab Results Reviewed Results Reviewed: Collected: 12/18/23 Status: COMP Req#: [id number] Received: 12/18/23 Source: Urine Cath Sp Desc: Nathan Cath Subm Dr: Tiffanie Rahman MD Ordered: Urine Culture Procedure Result Verified Urine Culture Final 12/20/23 Organism 1 Klebsiella pneumoniae Quant 50,000 to 100,000 cfu/mL Kleb pneum M.I.C. RX --------- --- Ampicillin >=32 R Ceftriaxone <=0.25 S Gentamicin <=1 S Levofloxacin <=0.12 S Nitrofurantoin 128 R Trimethoprim/Sulfamethoxazole <=20 S Date of Service: 11/17/23 EXAMINATION: CT ABDOMEN AND PELVIS WITHOUT CONTRAST CLINICAL INFORMATION: Pain. Recent Nathan catheter placement. COMPARISON: 11/16/2023 TECHNIQUE: Multidetector volumetric imaging was performed from the superior aspect of the liver through the pubic symphysis. Sagittal and coronal reformatted images were obtained on the technologist's workstation. This CT examination was performed using dose optimization techniques as appropriate, variously including the following: *Automated exposure control *Adjustment of mA and/or kV according to patient size (this includes techniques or standardized protocols for targeted exams where dose is matched to indication/reason for exam; i.e. extremities or head) *Use of iterative reconstruction technique DLP: 742 mGy-cm FINDINGS: LUNG BASES: There is scarring at the right lung base. LIVER, GALLBLADDER, AND BILIARY TREE: The liver is normal in size, shape, and attenuation. No focal hepatic lesion or biliary ductal dilatation is present. There has been a prior cholecystectomy. PANCREAS: Unremarkable. SPLEEN: Unremarkable. ADRENAL GLANDS: There is a stable low-density right adrenal lesion. KIDNEYS AND URETERS: The kidneys are again seen to be irregular in contour. Bilateral renal collecting system and ureteral prominence are again seen extending into the urinary bladder. BLADDER: A Nathan catheter extends into the urinary bladder. There is heterogeneous dense material within the urinary bladder intermixed with some air lucencies. The urinary bladder is distended. GASTROINTESTINAL TRACT: There are diverticula of the descending colon without diverticulitis. There is no evidence for appendicitis. ABDOMINAL WALL: No significant hernia is appreciated. LYMPH NODES: Normal. VASCULAR: There is atherosclerotic plaque of the abdominal aorta and proximal branches. PELVIC VISCERA: Significant prostate gland hypertrophy is again seen. OSSEOUS STRUCTURES: Unremarkable. IMPRESSION: 1. Nathan catheter extends into the urinary bladder. The urinary bladder is distended. There is heterogeneous dense material intermixed with some air lucencies within the urinary bladder which may represent blood products. 2. There is bilateral renal collecting system and ureteral prominence extending into the urinary bladder. 3. Significant prostate gland hypertrophy. 4. Diverticulosis of the descending colon without diverticulitis. 5. Stable low-density right adrenal lesion. Assessment & Plan Assessment & Plan (1) Urinary retention: Code(s): R33.9 - Retention of urine, unspecified Category: Medical (2) BPH (benign prostatic hyperplasia): Code(s): N40.0 - Benign prostatic hyperplasia without lower urinary tract symptoms Category: Medical (3) Hematuria: Code(s): R31.9 - Hematuria, unspecified Category: Medical Plan bactrim DS one tab bid tamsulosin, proscar 5 mg daily Orders: Orders AMB Cystoscopy 01/26/24 R31.9 - Hematuria, unspecified, R33.9 - Retention of urine, unspecified Medications: New sulfamethoxazole-trimethoprim 800-160 mg (Bactrim DS) 1 tab PO BID 14 tabs 0RF finasteride (Proscar) 5 mg PO DAILY 90 tabs 3RF 90 days Refilled tamsulosin (Flomax) 0.4 mg PO BID 60 caps 3RF 30 days Patient Instructions: The patient had an opportunity to ask questions regarding treatment plan. The patient expressed understanding and agreement with the above treatment plan. The patient is aware they should contact our office by phone for worsening of their current condition or the appearance of new symptoms. Compliance is encouraged with any medications and followup testing that is ordered. It is a privilege to be allowed the opportunity to participate in the urologic care of your patient. If you have any questions or concerns regarding treatment for the above conditions please do not hesitate to contact me. The office telephone contact is [phone]. This note is constructed in part using voice recognition software. While every effort has been made to ensure accuracy commercial escrow officer errors may have been included. Yours sincerely, Narda Hernandez MD Coding Level of Care Code Est Pt Level 3 (60320) Diagnoses Urinary retention R33.9 BPH (benign prostatic hyperplasia) N40.0 Hematuria R31.9 CPT Codes Cystoscopy - CPT: 19726-[id number] ([id number])
== END 2024-01-26 15:54 | disposition home or self-care (01) ==
PROVIDERS: PCP Family Medicine; Visit Provider Urology
DX: R33.9 Retention of urine, unspecified (principal); N40.0 Benign prostatic hyperplasia without lower urinary tract symptoms; R31.9 Hematuria, unspecified
CPT/HCPCS: 52000; 99213

== ENCOUNTER → 2024-01-26 14:06 | Outpatient (BNVA) | payer OTHER, SELFPAY | PROVIDERS: PCP Family Medicine; Visit Provider Urology | DX: R31.9 Hematuria, unspecified (principal); N40.1 Benign prostatic hyperplasia with lower urinary tract symptoms; R33.8 Other retention of urine; Z79.899 Other long term (current) drug therapy | CPT/HCPCS: 52000; 99212 ==

== ENCOUNTER 2024-02-02 13:46 | Outpatient (AMB) | payer OTHER, SELFPAY ==
--- NOTE | 2024-02-02 13:49 | AM.OFFVISNUR ---
Intake Visit Reasons: PVR/voiding trouble Allergies No Known Allergies Allergy (Verified 01/26/24 14:43) Office Procedures Post Void Residual Post Residual Void Details: Reviewed PVR amount with patient via rn psychiatric on IPAD. Educated patient that Dr. Boucher was updated on high amount of urine retained and would like a nathan catheter placed at this time. Patient understood and agreeable. 16 fr coude catheter 10ml balloon blue plug inserted, patient tolerated well. All questions answered. Patient to keep follow up with Dr. Boucher on 02/25/24 and have cath change added. Post Void Residual (PVR): [id number] Void Residual by ultrasound Results AMB Urinalysis, Automated UA Leukoctes 0 Jacinto/uL Last Edit by Carrington Johns LPN on 02/02/24 13:51 UA Nitrite Negative Last Edit by Carrington Johns LPN on 02/02/24 13:51 UA Urobilinogen 0.2 mg/dL Last Edit by Carrington Johns LPN on 02/02/24 13:51 UA Protein 0 mg/dL Last Edit by Carrington Johns LPN on 02/02/24 13:51 UA pH 6.0 Last Edit by Carrington Johns LPN on 02/02/24 13:51 UA Blood 0 Nils/uL Last Edit by Carrington Johns LPN on 02/02/24 13:51 UA Specific Callaway 1.010 Last Edit by Carrington Johns LPN on 02/02/24 13:51 UA Ketone Negative Last Edit by Carrington Johns LPN on 02/02/24 13:51 UA Bilirubin 0 mg/dL Last Edit by Carrington Johns LPN on 02/02/24 13:51 UA Glucose 0 mg/dL Last Edit by Carrington Johns LPN on 02/02/24 13:51 Assessment & Plan Assessment & Plan Orders: Orders AMB Urinalysis Automated Today N40.0 - Benign prostatic hyperplasia without lower urinary tract symptoms, R31.9 - Hematuria, unspecified, R33.9 - Retention of urine, unspecified AMB Post Void Residual by ultrasound Today N40.0 - Benign prostatic hyperplasia without lower urinary tract symptoms, R31.9 - Hematuria, unspecified, R33.9 - Retention of urine, unspecified
== END 2024-02-02 14:54 | disposition home or self-care (01) ==
PROVIDERS: PCP Family Medicine; Visit Provider Urology
DX: R31.9 Hematuria, unspecified (principal); R33.9 Retention of urine, unspecified; N40.0 Benign prostatic hyperplasia without lower urinary tract symptoms

== ENCOUNTER → 2024-02-02 13:46 | Outpatient (BNVA) | payer OTHER, SELFPAY | PROVIDERS: PCP Family Medicine; Visit Provider Urology | DX: R31.9 Hematuria, unspecified (principal); N40.1 Benign prostatic hyperplasia with lower urinary tract symptoms; R33.8 Other retention of urine | CPT/HCPCS: 51798; 81003 ==

== ENCOUNTER 2024-02-14 14:06 | Outpatient (AMB) | payer OTHER, SELFPAY ==
--- NOTE | 2024-02-14 14:11 | A.OFFVIS_ITS ---
Vital Signs 02/14/24 14:12 Height 5 ft 8.5 in Weight 211 lb 10.3 oz BMI 31.7 BP 102/54 L Blood Pressure Location Lt brachial Position Sitting Pulse 78 Pulse Source Pulse Oximeter Pulse Oximetry (%) 98 Oxygen Delivery Method Room Air Intake Visit Reasons: Shortness of breath Intake Note: pt is here for follow up and states he has to use his pump a few times a day for his shortness of breath Tea Plantation Worker Required: No Allergies No Known Allergies Allergy (Verified 02/14/24 14:27) Medication List - Last Reconciled 02/14/24 by Ibis Peralta MD acetaminophen ER 650 mg PO TID PRN albuterol sulfate 90 mcg/actuation (Ventolin HFA) 2 puffs inhalation Q4-6H PRN ascorbic acid (vitamin C) (Vitamin C) 250 mg PO DAILY aspirin 1 tab PO DAILY atorvastatin 40 mg PO DAILY budesonide-formoterol 160-4.5 mcg/actuation (Symbicort) 2 puffs inhalation BID bupropion HCl XL 300 mg PO DAILY cetirizine 10 mg PO DAILY cholecalciferol (vitamin D3) (Vitamin D3) 50 mcg PO DAILY clonidine HCl 0.2 mg PO BEDTIME docusate sodium 100 mg PO BID duloxetine 120 mg PO DAILY finasteride (Proscar) 5 mg PO DAILY 90 days furosemide 40 mg PO DAILY gabapentin 100 mg PO DAILY hydralazine 100 mg PO TID isosorbide mononitrate ER 60 mg PO DAILY levothyroxine 75 mcg PO DAILY meclizine 25 mg PO TID PRN metformin 1 tab PO TIDWMEAL metoprolol succinate ER 100 mg PO DAILY montelukast 10 mg PO BEDTIME erdcprog-sqx-MG-lycopen-lutein 0.4 mg-300 mcg- 250 mcg (Cerovite Senior) 1 tab PO DAILY polyethylene glycol 3350 17 grams PO DAILY quetiapine 200 mg PO DAILY tamsulosin (Flomax) 0.4 mg PO BID 30 days temazepam 30 mg PO BEDTIME PRN tiotropium bromide (Spiriva with HandiHaler) 1 cap inhalation DAILY tramadol 50 mg PO DAILY PRN trazodone 150 mg PO BEDTIME PRN triamcinolone acetonide 0.1% 1 appl topical DAILY Do you need a note to return to daycare/school/sports/work: No HPI HPI Shortness of breath: Details: Emory comes after 2 months for follow-up . His main complaint is that he has frequent bouts of nasal congestion especially if he is outdoors , and there is a strong smell, such as. At the gas station Also if somebody is mowing the lawn and he happens to get walk by, he starts having sneezing and some cough. He is taking all his meds regularly. He does get outdoors more than usual. He uses albuterol HFA once or twice a day, in addition to his maintenance regimen. [facility] Medical History Sleep apnea Thyroid disease Depression LUCA (obstructive sleep apnea) Obesity (BMI 30-39.9) Lipoma of neck Coronary artery disease Chronic low back pain Asthma Hyperlipidemia BPH (benign prostatic hyperplasia) Diabetes Personal history of COVID-19 Hypertension Allergic rhinitis COPD (chronic obstructive pulmonary disease) Surgical History History of surgery of head Hx of shoulder surgery Hx of umbilical hernia repair History of surgery Hx of bilateral cataract extraction Hx of cardiac catheterization Hx of circumcision History of esophagogastroduodenoscopy (EGD) H/O colonoscopy Family History Mother No problems noted. Father No problems noted. 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) Alcohol intake: never Patient Tobacco Use Status: Never used Tobacco Advance Directives Date on File: 05/14/20 service: No Review of Systems Const All systems reviewed & are unremarkable except as noted in HPI and below Eyes Reports no additional complaints ENT Reports nasal congestion (ALL THE TIMES) and Reports post nasal drip Card Denies chest pain, Denies irregular heart rhythm and Reports dyspnea on exertion Resp Reports cough (frequent) and Reports dyspnea on exertion GI Reports no additional complaints Musc Reports no additional complaints Neuro Reports no additional complaints Psych Reports depression Physical Exam Vital Signs: Last Vital Signs Pulse 78 07/22/24 14:12 BP 102/54 L 07/22/24 14:12 Pulse Ox 98 02/14/24 14:12 Oxygen Delivery Method Room Air 02/14/24 14:12 BMI result Body Mass Index 31.7 Const Other: HE IS GROSSLY OBESE, WITH A ROUND FACE, NARROW OROPHARYNX, MALLAMPATI CLASS 4 NECK CIRCUMFERENCE 18 IN' General: comfortable, no acute distress, alert and awake Orientation/consciousness: patient oriented x3 HEENT Head: Yes normal to inspection General nose exam: No nasal polyps present, No nasal discharge present and Abnormal mucous membranes and turbinates present (NASAL TURBINATES ARE HYPERTROPHIC) Face and sinus: Yes sinuses nontender Mouth: oropharynx normal Throat: Yes posterior oropharynx normal Eyes General: appearance normal, both eyes and all related structures Neck Neck: Yes normal visual inspection, Yes no lymphadenopathy, Yes trachea midline, Yes no JVD and Yes other (Neck circumference 18 in, a golf ball sized lipoma on left side of the neck) Thyroid: Thyroid normal Chest Chest palpation & inspection: normal inspection of the chest, normal palpation of entire chest wall and no tenderness Resp Other: Percussion note resonant, breath sounds are distant with prolonged expiratory phase. No wheezes or creps. are herad . Cardio Palpation: PMI not normal (Not palpable.) Rate: regular rate Rhythm: regular rhythm Heart sounds: no gallops and no murmurs GI Palpation (GI): Soft to palpation, nontender, No hepatosplenomegaly present, no masses and Other GI palpation findings present (Abdomen is obese and protuberant) Auscultation: normal bowel sounds Back/Spine/Pelvis Thoracic/Lumbar Spine: thoracic and lumbar spine normal to inspection Skin General skin exam: no rashes or lesions noted Neuro General: patient oriented x3 and no focal motor deficits Cranial nerves: Yes CN's II-XII intact bilaterally Extrem General: Yes normal to inspection, Yes no clubbing, cyanosis or edema and Yes no calf tenderness Psych Appearance: grossly normal and well kempt Speech and movement: Normal speech and movement present Assessment & Plan Assessment & Plan (1) Obesity (BMI 30-39.9): Comment: Remains grossly obese, this is a chronic problem, lately he has lost some weight. He is trying to limit the calories intake, and also encouraged to start walking on a daily basis. Code(s): E66.9 - Obesity, unspecified Category: Medical Plan: Advised to continue watching diet and try to walk around as much as possible (2) LUCA (obstructive sleep apnea): Comment: Longstanding history of obstructive sleep apnea, has remained non compliant most of the times and his CPAP device was taken away due to noncompliance. Claims that he has some difficulty in sleeping at night. Code(s): G47.33 - Obstructive sleep apnea (adult) (pediatric) Category: Medical Plan: Because of his noncompliance in the past, he lost his CPAP machine. And now he is not able to get CPAP at least for the next 3 years. The best thing for him is to lose weight. (3) Allergic rhinitis: Comment: IT HAS BEEN A CHRONIC PROBLEM. HE PROBABLY HAS MULTIPLE ENVIRONMENTAL ALLERGIES. Code(s): J30.9 - Allergic rhinitis, unspecified Category: Medical Plan: MONTELUKAST 10 MG DAILY FLONASE NASAL SPRAY 2 SPRAY IN EACH NOSTRIL DAILY CETIRIZINE 10 MG ONCE A DAY P.R.N. (4) COPD (chronic obstructive pulmonary disease): Comment: CLINICALLY HAS MODERATELY SEVERE OBSTRUCTIVE AIRWAY DISORDER. HE IS DOING FAIRLY WELL ON HIS CURRENT MEDICAL REGIMEN. DENIES SMOKING. Code(s): J44.9 - Chronic obstructive pulmonary disease, unspecified Category: Medical Plan: CONTINUE USING SYMBICORT 160-4.52 PUFFS B.I.D. SPIRIVA HANDIHALER 1 INHALATION DAILY VENTOLIN 2 PUFFS Q 4-6 HOURS ONLY P.R.N.. CLINICALLY HIS COPD IS STABLE EXPECTED. Coding Level of Care Code Est Pt Level 3 (76746) Diagnoses Obesity (BMI 30-39.9) E66.9 LUCA (obstructive sleep apnea) G47.33 Allergic rhinitis J30.9 COPD (chronic obstructive pulmonary disease) J44.9
[2024-02-14 14:12] VITALS: BP 102/54; PULSE 78; O2SAT 98; BMI 31.7
== END 2024-02-14 14:27 | disposition home or self-care (01) ==
PROVIDERS: PCP Family Medicine; Visit Provider Internal Medicine
DX: E66.9 Obesity, unspecified (principal); G47.33 Obstructive sleep apnea (adult) (pediatric); J30.9 Allergic rhinitis, unspecified; J44.9 Chronic obstructive pulmonary disease, unspecified
CPT/HCPCS: 99213

== ENCOUNTER → 2024-02-14 14:06 | Outpatient (BNVA) | payer OTHER, SELFPAY | PROVIDERS: PCP Family Medicine; Visit Provider Internal Medicine | DX: G47.33 Obstructive sleep apnea (adult) (pediatric) (principal); J44.9 Chronic obstructive pulmonary disease, unspecified; J30.9 Allergic rhinitis, unspecified; E66.9 Obesity, unspecified; Z68.31 Body mass index [BMI] 31.0-31.9, adult | CPT/HCPCS: 99212 ==

== ENCOUNTER → 2024-02-25 14:44 | Outpatient (BNVA) | payer OTHER, SELFPAY | PROVIDERS: PCP Family Medicine; Visit Provider Urology | DX: R33.9 Retention of urine, unspecified (principal) | CPT/HCPCS: 51702 ==

== ENCOUNTER 2024-03-03 13:18 | Outpatient (AMB) | payer OTHER, SELFPAY ==
--- NOTE | 2024-03-03 13:26 | A.OFFVIS_ITS ---
Intake Visit Reasons: discussing catheter/concerns Intake Note: Patient is Present for catheter discussion. Urology Med: Tamsulosin, Antibiotic Allergy: None Blood Thinner:Aspirin (On Hold) Executive Candidate Developer Required: Yes Executive Candidate Developer Language: Commercial Airline Pilot Name: Andie([id number]) Information Interpreted: non-clinical & clinical Allergies No Known Allergies Allergy (Verified 03/03/24 13:26) HPI Comments Details: 03/03/24--Failed multiple voiding trials. Will schedule urodynamics. parts interpreter used. 01/26/2024--here for cystoscopy. Nathan removed. Cystoscopy findings: moderate trabeculations, mild inflammatory changes consistent with cystitis, there was sediment in the bladder which made visualization suboptimal, no suspicious lesions seen. Pt does not want nathan replaced. Will empiracally treat with bactrim. cont tamsulosin, proscar. Pt to return for NELDA. 12/16/23--Emory is a 73-year-old male who was initially evaluated inpatient at [facility]. He presented on 11/16/2023 to the emergency room with complaints of not being able to urinate. Urology was consulted due to difficult catheterization and then was asked to re-evaluate due to gross hematuria. CT imaging 11/17/2023 noted heterogeneous material in the bladder may represent clot, mild dilatation bilaterally of renal system to the level of the bladder no renal calcifications noted-no renal masses noted. The patient has a [address] He is on tamsulosin 0.4 mg daily. Plan is to remove catheter and he is to return by 14:00 if he is unable to void. I will empirically place him on Bactrim DS 1 tab twice a day and start Proscar 5 mg daily. Follow-up in 1 month for office cystoscopy. [facility] Medical History Sleep apnea Thyroid disease Depression LUCA (obstructive sleep apnea) Obesity (BMI 30-39.9) Lipoma of neck Coronary artery disease Chronic low back pain Asthma Hyperlipidemia BPH (benign prostatic hyperplasia) Diabetes Personal history of COVID-19 Hypertension Allergic rhinitis COPD (chronic obstructive pulmonary disease) Surgical History History of surgery of head Hx of shoulder surgery Hx of umbilical hernia repair History of surgery Hx of bilateral cataract extraction Hx of cardiac catheterization Hx of circumcision History of esophagogastroduodenoscopy (EGD) H/O colonoscopy Family History Mother No problems noted. Father No problems noted. 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) Alcohol intake: never Patient Tobacco Use Status: Never used Tobacco Advance Directives Date on File: 05/14/20 service: No Review of Systems Const All systems reviewed & are unremarkable except as noted in HPI and below Reports no additional complaints Eyes Reports no additional complaints ENT Reports no additional complaints Card Reports no additional complaints Resp Reports no additional complaints GI Reports no additional complaints Reports as per HPI Musc Reports no additional complaints Skin/Breast Reports system reviewed and no additional complaints, except as documented Neuro Reports no additional complaints Psych Reports no additional complaints Endo Reports no additional complaints Keegan/Lymph Reports no additional complaints Aller/Immun Reports no additional complaints Assessment & Plan Assessment & Plan (1) Urinary retention: Code(s): R33.9 - Retention of urine, unspecified Category: Medical (2) BPH (benign prostatic hyperplasia): Code(s): N40.0 - Benign prostatic hyperplasia without lower urinary tract symptoms Category: Medical (3) Hematuria: Code(s): R31.9 - Hematuria, unspecified Category: Medical Plan schedule urodynamics tamsulosin, proscar 5 mg daily Medications: Refilled finasteride 5 mg PO DAILY 90 days 90 tabs 3RF tamsulosin 0.4 mg PO BID 30 days 60 caps 3RF Patient Instructions: The patient had an opportunity to ask questions regarding treatment plan. The patient expressed understanding and agreement with the above treatment plan. The patient is aware they should contact our office by phone for worsening of their current condition or the appearance of new symptoms. Compliance is encouraged with any medications and followup testing that is ordered. It is a privilege to be allowed the opportunity to participate in the urologic care of your patient. If you have any questions or concerns regarding treatment for the above conditions please do not hesitate to contact me. The office telephone contact is [phone]. This note is constructed in part using voice recognition software. While every effort has been made to ensure accuracy plant breeder scientist errors may have been included. Yours sincerely, Narda Hernandez MD Coding Level of Care Code Est Pt Level 3 (46357) Diagnoses Urinary retention R33.9 BPH (benign prostatic hyperplasia) N40.0 Hematuria R31.9
== END 2024-03-03 13:51 | disposition home or self-care (01) ==
PROVIDERS: PCP Family Medicine; Visit Provider Urology
DX: R33.9 Retention of urine, unspecified (principal); N40.0 Benign prostatic hyperplasia without lower urinary tract symptoms; R31.9 Hematuria, unspecified
CPT/HCPCS: 99213

== ENCOUNTER → 2024-03-03 13:18 | Outpatient (BNVA) | payer OTHER, SELFPAY | PROVIDERS: PCP Family Medicine; Visit Provider Urology | DX: N40.1 Benign prostatic hyperplasia with lower urinary tract symptoms (principal); R33.8 Other retention of urine; R31.9 Hematuria, unspecified | CPT/HCPCS: 99212 ==

== ENCOUNTER 2024-03-21 14:12 | Outpatient (REF) | payer OTHER, SELFPAY | END 2024-03-21 14:13 | disposition home or self-care (01) | LOC: HO.LNP 14:12 | PROVIDERS: PCP Family Medicine; Visit Provider Urology | DX: R31.9 Hematuria, unspecified (principal); R33.9 Retention of urine, unspecified; N40.0 Benign prostatic hyperplasia without lower urinary tract symptoms | CPT/HCPCS: 81003; 87086; 87088; 87186 ==

== ENCOUNTER 2024-03-21 14:12 | Outpatient (AMB) | payer OTHER, SELFPAY | END 2024-03-21 15:40 | disposition home or self-care (01) | PROVIDERS: PCP Family Medicine; Visit Provider Urology | DX: R31.9 Hematuria, unspecified (principal); R33.9 Retention of urine, unspecified; N40.0 Benign prostatic hyperplasia without lower urinary tract symptoms ==

== ENCOUNTER 2024-03-31 10:16 | Outpatient (AMB) | payer OTHER, SELFPAY ==
--- NOTE | 2024-03-31 10:17 | MHC.OFFVIS ---
Intake Visit Reasons: Urodynamics Intake Note: Emory is a 73 year old male who presents to the office today for a Urodynamics study. Allergies No Known Allergies Allergy (Verified 03/31/24 10:18) Medication List - Last Reconciled 03/31/24 by Narda Hernandez MD acetaminophen ER 650 mg PO TID PRN albuterol sulfate 90 mcg/actuation (Ventolin HFA) 2 puffs inhalation Q4-6H PRN ascorbic acid (vitamin C) (Vitamin C) 250 mg PO DAILY aspirin 1 tab PO DAILY atorvastatin 40 mg PO DAILY budesonide-formoterol 160-4.5 mcg/actuation (Symbicort) 2 puffs inhalation BID bupropion HCl XL 300 mg PO DAILY cetirizine 10 mg PO DAILY cholecalciferol (vitamin D3) (Vitamin D3) 50 mcg PO DAILY clonidine HCl 0.2 mg PO BEDTIME docusate sodium 100 mg PO BID duloxetine 120 mg PO DAILY finasteride (Proscar) 5 mg PO DAILY 90 days furosemide 40 mg PO DAILY gabapentin 100 mg PO DAILY hydralazine 100 mg PO TID isosorbide mononitrate ER 60 mg PO DAILY levothyroxine 75 mcg PO DAILY meclizine 25 mg PO TID PRN metformin 1 tab PO TIDWMEAL metoprolol succinate ER 100 mg PO DAILY montelukast 10 mg PO BEDTIME grhujime-jhe-NS-lycopen-lutein 0.4 mg-300 mcg- 250 mcg (Cerovite Senior) 1 tab PO DAILY polyethylene glycol 3350 17 grams PO DAILY quetiapine 200 mg PO DAILY sulfamethoxazole-trimethoprim 800-160 mg (Bactrim DS) 1 tab PO DAILY tamsulosin (Flomax) 0.4 mg PO BID 30 days temazepam 30 mg PO BEDTIME PRN tiotropium bromide (Spiriva with HandiHaler) 1 cap inhalation DAILY tramadol 50 mg PO DAILY PRN trazodone 150 mg PO BEDTIME PRN triamcinolone acetonide 0.1% 1 appl topical DAILY HPI Comments Details: 03/31/24--Here for urodynamics. CMG parameters detailed below. Interpretation: Complex uroflow was not obtained, patient presents with nathan catheter. During the filling phase there was normal sensation, bladder capacity was within normal limits, the patient felt that he was at capacity at 303 mL. During the voiding phase the patient was unable to void and had max detrusor pressures of 100 cm H20. A nathan was replaced and 325 mL was drained from the bladder. EMG- Appropriate changes in the waveforms were noted through out the study. There was a decrease in the EMG activity during the voiding c/w normal function of the pelvic floor. I have discussed treatment plan - TURP, discussed risks/benefits to include but not limited to infection, bleeding, need for other surgical procedures. Will request medical clearance, will place an abx suppressive therapy bactrim DS daily until surgery. Review of chart: 03/03/24--Failed multiple voiding trials. Will schedule urodynamics. timber spotter used. 01/26/2024--here for cystoscopy. Nathan removed. Cystoscopy findings: moderate trabeculations, mild inflammatory changes consistent with cystitis, there was sediment in the bladder which made visualization suboptimal, no suspicious lesions seen. Pt does not want nathan replaced. Will empiracally treat with bactrim. cont tamsulosin, proscar. Pt to return for NELDA. 12/16/23--Emory is a 73-year-old male who was initially evaluated inpatient at [facility]. He presented on 11/16/2023 to the emergency room with complaints of not being able to urinate. Urology was consulted due to difficult catheterization and then was asked to re-evaluate due to gross hematuria. CT imaging 11/17/2023 noted heterogeneous material in the bladder may represent clot, mild dilatation bilaterally of renal system to the level of the bladder no renal calcifications noted-no renal masses noted. The patient has a [address] He is on tamsulosin 0.4 mg daily. Plan is to remove catheter and he is to return by 14:00 if he is unable to void. I will empirically place him on Bactrim DS 1 tab twice a day and start Proscar 5 mg daily. Follow-up in 1 month for office cystoscopy. [facility] Medical History Sleep apnea Thyroid disease Depression LUCA (obstructive sleep apnea) Obesity (BMI 30-39.9) Lipoma of neck Coronary artery disease Chronic low back pain Asthma Hyperlipidemia BPH (benign prostatic hyperplasia) Diabetes Personal history of COVID-19 Hypertension Allergic rhinitis COPD (chronic obstructive pulmonary disease) Surgical History History of surgery of head Hx of shoulder surgery Hx of umbilical hernia repair History of surgery Hx of bilateral cataract extraction Hx of cardiac catheterization Hx of circumcision History of esophagogastroduodenoscopy (EGD) H/O colonoscopy Family History Mother No problems noted. Father No problems noted. 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) Alcohol intake: never Patient Tobacco Use Status: Never used Tobacco Advance Directives Date on File: 05/14/20 service: No Review of Systems Const All systems reviewed & are unremarkable except as noted in HPI and below Reports no additional complaints Eyes Reports no additional complaints ENT Reports no additional complaints Card Reports no additional complaints Resp Reports no additional complaints GI Reports no additional complaints Reports as per HPI Musc Reports no additional complaints Skin/Breast Reports system reviewed and no additional complaints, except as documented Neuro Reports no additional complaints Psych Reports no additional complaints Endo Reports no additional complaints Keegan/Lymph Reports no additional complaints Aller/Immun Reports no additional complaints Office Procedures Bladder/Catheter Procedure Details: 16fr coude nathan catheter inserted, patient tolerated well. Urine output approximately 325mls. Patient to have scheduled procedure on prostate with Dr. Boucher [id number]-[id number] Temporary Bladder Catheter Procedure code (CPT) selection complete Urodynamic Studies Consent Discussed risk and benefit or proposed procedure with the patient. Information consent for procedure given to the patient. Discussed technical aspects, risks, benefits and alternatives in full. Addressed all of the patient's questions and concerns regarding the procedure. The patient demonstrated knowledge and understanding. They wish to proceed with this procedure. Preparation The patient was prepped in the usual manner. A telehealth case manager was present and in the room. Genitalia was prepped with betadine solution in a sterile manner. Procedure Complex Uroflow Not performed patient presents with nathan catheter due to urinary retention Cystometrogram Vaginal/rectal catheter type: rectal First sensation at (mL): 95 mL First desire at (mL): 210 mL Maximum fill (mL): 303 mL max detrussor pressure during attempts to void of (cm H2O): 100 Maximum flow rate (mL/second): [] mL/s 13077-Mnoijzipdpxzwo w/ DIRECTOR INSTRUMENTATION 88782-Tflv/Urinary Muscle Study 85535-Ymwes-Rmwujxeni Pressure Test Procedure code (CPT) selection complete Office Meds nitrofurantoin monohydrate/macrocrystals 100 mg capsule Performing Provider: Narda Hernandez MD [facility] Administered by: Carrington Johns LPN on 03/31/24 10:41 Dose Route Admin Location Dispensed Lot Number Expiration Date NDC Vice President Of Talent Acquisition 100 mg PO 1 cap Assessment & Plan Assessment & Plan (1) Urinary retention: Code(s): R33.9 - Retention of urine, unspecified Category: Medical (2) BPH (benign prostatic hyperplasia): Code(s): N40.0 - Benign prostatic hyperplasia without lower urinary tract symptoms Category: Medical Plan cysto/TURP, bactrim ds daily suppressive therapy until surgery Orders: Orders AMB Bladder/Catheter Procedure Today N40.0 - Benign prostatic hyperplasia without lower urinary tract symptoms, R31.9 - Hematuria, unspecified, R33.9 - Retention of urine, unspecified AMB Urodynamics Studies Today N40.0 - Benign prostatic hyperplasia without lower urinary tract symptoms, R31.9 - Hematuria, unspecified, R33.9 - Retention of urine, unspecified Medications: New sulfamethoxazole-trimethoprim 800-160 mg (Bactrim DS) 1 tab PO DAILY 30 tabs 0RF Patient Instructions: The patient had an opportunity to ask questions regarding treatment plan. The patient expressed understanding and agreement with the above treatment plan. The patient is aware they should contact our office by phone for worsening of their current condition or the appearance of new symptoms. Compliance is encouraged with any medications and followup testing that is ordered. It is a privilege to be allowed the opportunity to participate in the urologic care of your patient. If you have any questions or concerns regarding treatment for the above conditions please do not hesitate to contact me. The office telephone contact is [phone]. This note is constructed in part using voice recognition software. While every effort has been made to ensure accuracy pull through hooker errors may have been included. Yours sincerely, Narda Hernandez MD Coding Level of Care Code Est Pt Level 4 (36165) Diagnoses Urinary retention R33.9 BPH (benign prostatic hyperplasia) N40.0 CPT Codes Bladder/Catheter Procedure - CPT: 98479-Nygfbn Temporary Bladder Catheter ([id number]) Urodynamic Studies - CPT: 07135-Ehpcdqetbbchxi w/ DIRECTOR INSTRUMENTATION ([id number]) Urodynamic Studies - CPT: 28419-Vlei/Urinary Muscle Study ([id number]) Urodynamic Studies - CPT: 45312-Ckllb-Rmurkpjwn Pressure Test ([id number])
== END 2024-03-31 12:15 | disposition home or self-care (01) ==
PROVIDERS: PCP Family Medicine; Visit Provider Urology
DX: R31.9 Hematuria, unspecified (principal); R33.9 Retention of urine, unspecified; N40.0 Benign prostatic hyperplasia without lower urinary tract symptoms
CPT/HCPCS: 51728; 51741; 51784; 51797; 99214

== ENCOUNTER → 2024-03-31 10:16 | Outpatient (BNVA) | payer OTHER, SELFPAY | PROVIDERS: PCP Family Medicine; Visit Provider Urology | DX: N40.1 Benign prostatic hyperplasia with lower urinary tract symptoms (principal); R33.8 Other retention of urine | CPT/HCPCS: 51728; 51741; 51784; 51797; 99212 ==

== ENCOUNTER 2024-05-02 16:30 | Day surgery (SDC) | payer OTHER, SELFPAY ==
[2024-04-28 14:08] VITALS: BMI 31.6
--- NOTE | 2024-05-01 10:44 | P.CONAN_ITS ---
HPI - Anesthesia Eval Consult details Narrative: 74yo M for Cystoscopy TURBT Optimized per PCP Follows [facility] Cardiology. Requested last office visit note. PMFSH Active Problems Active Problems: All Active Problems Hematuria (Acute) Urinary retention (Acute) Polyarthralgia (Acute) Varicose veins of right lower extremity with inflammation (Acute) History of right cataract surgery (Acute) LUCA (obstructive sleep apnea) (Acute) Obesity (BMI 30-39.9) (Acute) Lipoma of neck (Acute) Coronary artery disease (Acute) Chronic low back pain (Acute) Asthma (Acute) Hyperlipidemia (Acute) BPH (benign prostatic hyperplasia) (Acute) Allergic rhinitis (Acute) COPD (chronic obstructive pulmonary disease) (Acute) Past Medical History Medical History Sleep apnea Thyroid disease Depression LUCA (obstructive sleep apnea) Obesity (BMI 30-39.9) Lipoma of neck Coronary artery disease Chronic low back pain Asthma Hyperlipidemia BPH (benign prostatic hyperplasia) Diabetes Personal history of COVID-19 Hypertension Allergic rhinitis COPD (chronic obstructive pulmonary disease) Family History Family History Mother No problems noted. Father No problems noted. 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) Alcohol intake: never Patient Tobacco Use Status: Never used Tobacco Advance Directives Date on File: 05/14/20 service: No Meds Allergies Allergy/AdvReac Type Severity Reaction Status Date / Time No Known Allergies Allergy Verified 03/31/24 10:18 Home Medications ?Medication ?Instructions ?Recorded ?Confirmed ?Last Taken ?Type atorvastatin 40 mg tablet 40 mg PO DAILY 10/24/20 03/31/24 Unknown History duloxetine 60 mg capsule,delayed 120 mg PO DAILY 10/24/20 03/31/24 Unknown History release furosemide 40 mg tablet 40 mg PO DAILY 10/24/20 03/31/24 Unknown History gabapentin 100 mg capsule 100 mg PO DAILY Pain 10/24/20 03/31/24 Unknown History isosorbide mononitrate 60 mg 60 mg PO DAILY 10/24/20 03/31/24 Unknown History tablet,extended release 24 hr levothyroxine 75 mcg tablet 75 mcg PO DAILY 10/24/20 03/31/24 Unknown History meclizine 25 mg tablet 25 mg PO TID PRN Vertigo 10/24/20 03/31/24 Unknown History montelukast 10 mg tablet 10 mg PO BEDTIME 10/24/20 03/31/24 Unknown History trazodone 150 mg tablet 150 mg PO BEDTIME PRN Insomnia 10/24/20 03/31/24 Unknown History aspirin 81 mg tablet,delayed 1 tab PO DAILY 05/19/21 03/31/24 Unknown History release hydralazine 100 mg tablet 100 mg PO TID 05/19/21 03/31/24 Unknown History metformin 500 mg tablet 1 tab PO TIDWMEAL 05/19/21 03/31/24 Unknown History clonidine HCl 0.2 mg tablet 0.2 mg PO BEDTIME 07/29/22 03/31/24 Unknown History acetaminophen 650 mg 650 mg PO TID PRN Pain 04/05/23 03/31/24 Unknown History tablet,extended release ascorbic acid (vitamin C) 250 mg 250 mg PO DAILY 04/05/23 03/31/24 Unknown History tablet (Vitamin C) bupropion HCl 300 mg 24 hr tablet, 300 mg PO DAILY 04/05/23 03/31/24 Unknown History extended release docusate sodium 100 mg capsule 100 mg PO BID 04/05/23 03/31/24 Unknown History albuterol sulfate 90 mcg/actuation 2 puff inhalation Q4-6H PRN 06/24/23 03/31/24 Unknown History aerosol inhaler (Ventolin HFA) Shortness Of Breath Or Wheezing triamcinolone acetonide 0.1 % 1 appl topical DAILY 06/24/23 03/31/24 Unknown History topical ointment metoprolol succinate 200 mg 100 mg PO DAILY 11/16/23 03/31/24 Unknown History tablet,extended release 24 hr polyethylene glycol 3350 17 17 g PO DAILY 11/16/23 03/31/24 Unknown History gram/dose oral powder budesonide-formoterol HFA 160 2 puff inhalation BID 01/10/24 03/31/24 Unknown History mcg-4.5 mcg/actuation aerosol inhaler (Symbicort) cetirizine 10 mg tablet 10 mg PO DAILY 01/10/24 03/31/24 Unknown History cholecalciferol (vitamin D3) 50 50 mcg PO DAILY 01/10/24 03/31/24 Unknown History mcg (2,000 unit) tablet (Vitamin D3) ngmkirfr-fua-dlbel acid 0.4 1 tab PO DAILY 01/10/24 03/31/24 Unknown History mg-lycopene 300 mcg-lutein 250 mcg tablet (Cerovite Senior) quetiapine 200 mg tablet 200 mg PO DAILY 01/10/24 03/31/24 Unknown History temazepam 30 mg capsule 30 mg PO BEDTIME PRN Insomnia 01/10/24 03/31/24 Unknown History tiotropium bromide 18 mcg capsule 1 cap inhalation DAILY 01/10/24 03/31/24 Unknown History with inhalation device (Spiriva with HandiHaler) tramadol 50 mg tablet 50 mg PO DAILY PRN Pain 01/10/24 03/31/24 Unknown History Exam Height,Weight and Vital Signs: Height 5 ft 8.5 in Weight 95.708 kg Pertinent Lab Results Pertinent Lab Results: Laboratory Tests 12/18/23 12:23 WBC 15.2 H Hgb 10.8 L Hct 31.6 L Plt Count 193 D Sodium 137 Potassium 3.5 Chloride 102 Carbon Dioxide 26 BUN 10 Creatinine 1.14 Narrative Narrative: EKG 10/2023 Vent. Rate : 076 BPM Atrial Rate : 076 BPM P-R Int : 148 ms QRS Dur : 094 ms QT Int : 402 ms P-R-T Axes : -01 -26 -88 degrees QTc Int : 452 ms Normal sinus rhythm with sinus arrhythmia Nonspecific ST and T wave abnormality Abnormal ECG When compared with ECG of 18-FEB-2022 16:47, No significant change was found Assessment and Plan Assessment Anesthesia Assessment: Chart Reviewed Final Anesthetic Review Family History of Problems with Anesthesia: No History of Problems with Anesthesia: No
[2024-05-02] VITALS (9 sets, daily range): BP systolic 160–185; BP diastolic 77–100; PULSE 70–77; RESP 12–20; TEMP 36.1–36.9; O2SAT 94–100; BMI 31.6
[2024-05-02 17:10] LABS: Glucose, Whole Blood 107 mg/dL (60-115)
[2024-05-02] MEDS: Lactated Ringers 1,000 ML 100 ML IVCONT (17:13)
--- NOTE | 2024-05-02 18:18 | MHC.SHP ---
Pre-Procedural Eval Section A - 24 Hr Update-Section A only Date of Service: 05/02/24 The patient is an INPATIENT: No The patient has been examined within 24 hours of the surgical procedure. The History & Physical has been completed within 30 days and I have reviewed it.: Yes Section B - Complete if H&P > 30 days Chief Complaint: Retention of urine, unspecified Allergies: Allergies Allergy/AdvReac Type Severity Reaction Status Date / Time No Known Allergies Allergy Verified 03/31/24 10:18 Plan Diagnosis/Plan: Unchanged I have reviewed the history and physical and performed a pertinent physical examination on my patient. No changes have occurred unless specified. Cystoscopy. Transurethral resection prostate tissue. Discussed risks to include but not limited to, bleeding, burning with urination, urgency, nathan, persistent voiding dysfunction. Time Spent With Patient Time: Total time managing care of this patient today ____ minutes.
--- NOTE | 2024-05-02 18:22 | P.CONAN_ITS ---
HPI - Anesthesia Eval Consult details Narrative: BPH PMFSH Active Problems Active Problems: All Active Problems Hematuria (Acute) Urinary retention (Acute) Polyarthralgia (Acute) Varicose veins of right lower extremity with inflammation (Acute) History of right cataract surgery (Acute) LUCA (obstructive sleep apnea) (Acute) Obesity (BMI 30-39.9) (Acute) Lipoma of neck (Acute) Coronary artery disease (Acute) Chronic low back pain (Acute) Asthma (Acute) Hyperlipidemia (Acute) BPH (benign prostatic hyperplasia) (Acute) Allergic rhinitis (Acute) COPD (chronic obstructive pulmonary disease) (Acute) Past Medical History Medical History Sleep apnea Thyroid disease Depression LUCA (obstructive sleep apnea) Obesity (BMI 30-39.9) Lipoma of neck Coronary artery disease Chronic low back pain Asthma Hyperlipidemia BPH (benign prostatic hyperplasia) Diabetes Personal history of COVID-19 Hypertension Allergic rhinitis COPD (chronic obstructive pulmonary disease) Family History Family History Mother No problems noted. Father No problems noted. 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) Alcohol intake: never Patient Tobacco Use Status: Never used Tobacco Use of substances other than those prescribed or required for medical reasons: No Are you DNR?: No Advance Directives: No Advance Directives Information Provided: Yes Advance Directives on File: No Advance Directives Date on File: 05/14/20 service: No Meds Allergies Allergy/AdvReac Type Severity Reaction Status Date / Time No Known Allergies Allergy Verified 03/31/24 10:18 Active Medications: Current Medications Albuterol Sulfate (Albuterol Sulfate (0.083%) 2.5 Mg/3 Ml Vial.Neb) 2.5 mg INHALE ONCE PRN PRN Reason: Shortness of Breath/Wheezing Lactated Ringer's (Lr) 1,000 mls @ 100 mls/hr IVCONT .Q10H ORAL Last Admin: 05/02/24 17:13 Dose: 100 mls/hr Home Medications ?Medication ?Instructions ?Recorded ?Confirmed ?Last Taken ?Type atorvastatin 40 mg tablet 40 mg PO DAILY 10/24/20 03/31/24 Unknown History duloxetine 60 mg capsule,delayed 120 mg PO DAILY 10/24/20 03/31/24 Unknown History release furosemide 40 mg tablet 40 mg PO DAILY 10/24/20 03/31/24 Unknown History gabapentin 100 mg capsule 100 mg PO DAILY Pain 10/24/20 03/31/24 Unknown History isosorbide mononitrate 60 mg 60 mg PO DAILY 10/24/20 03/31/24 Unknown History tablet,extended release 24 hr levothyroxine 75 mcg tablet 75 mcg PO DAILY 10/24/20 03/31/24 Unknown History meclizine 25 mg tablet 25 mg PO TID PRN Vertigo 10/24/20 03/31/24 Unknown History montelukast 10 mg tablet 10 mg PO BEDTIME 10/24/20 03/31/24 Unknown History trazodone 150 mg tablet 150 mg PO BEDTIME PRN Insomnia 10/24/20 03/31/24 Unknown History aspirin 81 mg tablet,delayed 1 tab PO DAILY 05/19/21 03/31/24 Unknown History release hydralazine 100 mg tablet 100 mg PO TID 05/19/21 03/31/24 Unknown History metformin 500 mg tablet 1 tab PO TIDWMEAL 05/19/21 03/31/24 Unknown History clonidine HCl 0.2 mg tablet 0.2 mg PO BEDTIME 07/29/22 03/31/24 Unknown History acetaminophen 650 mg 650 mg PO TID PRN Pain 04/05/23 03/31/24 Unknown History tablet,extended release ascorbic acid (vitamin C) 250 mg 250 mg PO DAILY 04/05/23 03/31/24 Unknown Hi story tablet (Vitamin C) bupropion HCl 300 mg 24 hr tablet, 300 mg PO DAILY 04/05/23 03/31/24 Unknown History extended release docusate sodium 100 mg capsule 100 mg PO BID 04/05/23 03/31/24 Unknown History albuterol sulfate 90 mcg/actuation 2 puff inhalation Q4-6H PRN 06/24/23 03/31/24 Unknown History aerosol inhaler (Ventolin HFA) Shortness Of Breath Or Wheezing triamcinolone acetonide 0.1 % 1 appl topical DAILY 06/24/23 03/31/24 Unknown History topical ointment metoprolol succinate 200 mg 100 mg PO DAILY 11/16/23 03/31/24 Unknown History tablet,extended release 24 hr polyethylene glycol 3350 17 17 g PO DAILY 11/16/23 03/31/24 Unknown History gram/dose oral powder budesonide-formoterol HFA 160 2 puff inhalation BID 01/10/24 03/31/24 Unknown History mcg-4.5 mcg/actuation aerosol inhaler (Symbicort) cetirizine 10 mg tablet 10 mg PO DAILY 01/10/24 03/31/24 Unknown History cholecalciferol (vitamin D3) 50 50 mcg PO DAILY 01/10/24 03/31/24 Unknown History mcg (2,000 unit) tablet (Vitamin D3) uhvdrjfe-wfm-pbqwi acid 0.4 1 tab PO DAILY 01/10/24 03/31/24 Unknown History mg-lycopene 300 mcg-lutein 250 mcg tablet (Cerovite Senior) quetiapine 200 mg tablet 200 mg PO DAILY 01/10/24 03/31/24 Unknown History temazepam 30 mg capsule 30 mg PO BEDTIME PRN Insomnia 01/10/24 03/31/24 Unknown History tiotropium bromide 18 mcg capsule 1 cap inhalation DAILY 01/10/24 03/31/24 Unknown History with inhalation device (Spiriva with HandiHaler) tramadol 50 mg tablet 50 mg PO DAILY PRN Pain 01/10/24 03/31/24 Unknown History Exam Height,Weight and Vital Signs: Height 5 ft 8.5 in Weight 95.7 kg Last Vital Signs Temp 98.5 F 05/02/24 16:36 Pulse 71 05/02/24 16:36 Resp 16 05/02/24 16:36 BP 185/91 H 05/02/24 16:36 Pulse Ox 95 05/02/24 16:36 O2 Del Method Room Air 05/02/24 16:36 Pertinent Lab Results Pertinent Lab Results: Laboratory Tests 05/02/24 16:44 POC Glucose 107 Airway Mallampati Class: II TM Dist: >3cm Neck ROM: Full Heart: RRR Lungs: CTA Assessment and Plan Assessment Anesthesia Assessment: Anesthesia Plan Discussed and Chart Reviewed Final Anesthetic Review Family History of Problems with Anesthesia: No History of Problems with Anesthesia: No NPO: Yes ASA Class: III Final Preanesthetic Review: No Changes in Pt Med Stat, Meds/Allgs Chart Reviewed, Consent Obtained/Reviewed and Anes Risks/Benef Reviewed Patient Risk: High Procedure Risk: Intermediate Anesthetic Plan Anesthetic Plan: GA Disposition: Standard PACU
[2024-05-02] MEDS: fentaNYL citrate/PF 100 MCG/2 ML VIAL 50 MCG IVPUSH (21:18)
[2024-05-02 22:35] LABS: Glucose, Whole Blood 123 mg/dL (60-115)
[2024-05-02] MEDS: Melatonin 3 MG TABLET 6 MG PO (22:53)
[2024-05-02] MEDS: oxyCODONE HCl Immed Release 5 MG TABLET PO (22:53)
[2024-05-02] MEDS: hydrALAZINE HCl 50 MG TABLET 100 MG PO (23:29)
[2024-05-02] MEDS: Lactated Ringers 1,000 ML 50 ML IVCONT (23:30)
[2024-05-02] MEDS: 0.9 % Sodium Chloride Flush 3 ML SYRINGE IVFLUSH (23:31)
[2024-05-03] VITALS (10 sets, daily range): BP systolic 139–179; BP diastolic 60–84; PULSE 67–84; RESP 16–18; TEMP 36.1–36.6; O2SAT 93–98
[2024-05-03] MEDS: HYDROmorphone HCl 0.5 MG/0.5 ML SYRINGE IVPUSH ×3 (01:02→08:49)
[2024-05-03 05:36] LABS: MANUAL DIFF FLAG NO
[2024-05-03 05:51] LABS: Basophils Percent Auto 0.4 % (0-2); Eosinophils Absolute Auto 0.2 X10*3/uL (0.0-0.4); Eosinophils Percent Auto 2.1 % (0-4); Hematocrit 38.6 % (42.0-52.0); Hemoglobin 12.7 g/dl (14.0-18.0); Imm Gran Abs Auto 0.03 X10*3/uL (0.00-0.03); Imm Gran Pct Auto 0.4 % (0.0-0.4); Lymphocytes Absolute Auto 1.9 X10*3/uL (1.2-4.9); Mean Corpuscular HGB Conc 32.9 g/dl (31.0-36.0); Mean Corpuscular Hemoglobin 29.4 pg (27.0-33.0); Mean Corpuscular Volume 89.4 fL (80.0-98.0); Mean Platelet Volume 8.7 fL (9.4-12.4); Monocytes Absolute Auto 1.2 X10*3/uL (0.1-1.2); Monocytes Percent Auto 15.2 % (2-11); Neutrophils Absolute Auto 4.4 x10*3/uL (2.0-8.3); Neutrophils Percent Auto 56.9 % (45-73); Platelet Count 188 X10*3/uL (160-400); Red Blood Count 4.32 X10*6/uL (4.60-5.80); Red Cell Distribution Width 14.1 % (11.0-16.0); White Blood Count 7.7 X10*3/uL (4.8-10.8)
[2024-05-03 05:53] LABS: Anion Gap 11 (12-20); Blood Urea Nitrogen 11 mg/dL (9-16); Calcium 9.6 mg/dL (8.4-10.2); Carbon Dioxide 29 mmol/L (22-29); Chloride 104 mmol/L (96-108); Creatinine Clr Calc Pharmacy 81.6; Estimated Glomerular Filt Rate > 60; Glucose Random 106 mg/dL (60-115); Potassium 4.4 mmol/L (3.3-5.1); Sodium 140 mmol/L (135-145)
[2024-05-03] MEDS: oxyCODONE HCl Immed Release 5 MG TABLET PO ×2 (07:20→14:29)
[2024-05-03 07:25] LABS: Glucose, Whole Blood 99 mg/dL (60-115)
--- NOTE | 2024-05-03 09:19 | MHC.CM.PN ---
PT LIVES [place] [facility] A [employer] [facility] AND A VNA ,UNSURE OF AGENCY ,PT REPORTS HAVING A RIDE HOME WHEN HE IS DCD DC PLAN HOME WITH SERVICES
[2024-05-03] MEDS: Isosorbide Mononitrate 60 MG TAB.ER.24H PO (10:33)
[2024-05-03] MEDS: hydrALAZINE HCl 50 MG TABLET 100 MG PO ×3 (10:33→21:05)
[2024-05-03] MEDS: Metoprolol Succinate ER 100 MG TAB.ER.24H PO (10:33)
[2024-05-03 11:18] LABS: Glucose, Whole Blood 141 mg/dL (60-115)
--- NOTE | 2024-05-03 11:34 | PHA.MEDREC ---
Pharmacy Consult ? Medication Reconciliation Pharmacy has completed the medication reconciliation. Confirmed medications with patient and help with marketing operations manager. Patient was able to confirm everything with ease. He states he finished his Sulfamethoxazole 800mg-Trimethoprim 160mg regimen yesterday. He still is taking Tramadol 50mg 1 tab daily as needed for pain and gets it filled and delivered by a mail-order service from [place]. Patient is also taking Meclizine 25mg tabs originally he was doing it as needed but now states hes been doing it daily for a while now. He fills his o
--- NOTE | 2024-05-03 11:40 | PHA.MEDREC ---
Addendum entered by Elinor Garrido RPh 05/03/24 13:40: Reviewed by [facility]. Patient confirmed 120 mg of Cymbalta, even though claims show 60mg daily. Pt confirmed they are on Tramadol and Temazepam, even though MassPat/PDMP show no claims for either. Original Note: Pharmacy Consult ? Medication Reconciliation Pharmacy has completed the medication reconciliation. Confirmed medications with patient and help with hourly sign language interpreter. Patient was able to confirm everything with ease. He states he finished his Sulfamethoxazole 800mg-Trimethoprim 160mg regimen yesterday. He still is taking Tramadol 50mg 1 tab daily as needed for pain and gets it filled and delivered by a mail-order service from [place]. Patient is also taking Meclizine 25mg tabs originally he was doing it as needed but now states hes been doing it daily for a while now. He states he ran out of refills and tabs of Trazodone 150mg 2 weeks ago and has been waiting for his doctor to refill it but they have not yet. He fills medications at [facility] on [facility] if he cannot get mail-order. He states he last took his medications 2 days ago.
[2024-05-03] MEDS: Loratadine 10 MG TABLET PO (14:28)
[2024-05-03] MEDS: Furosemide 40 MG TABLET PO (14:28)
[2024-05-03] MEDS: Gabapentin 100 MG CAPSULE PO (14:28)
[2024-05-03] MEDS: DULoxetine HCl 60 MG CAPSULE.DR 120 MG PO (14:28)
[2024-05-03] MEDS: buPROPion HCl XL 300 MG TAB.ER.24H PO (14:28)
[2024-05-03] MEDS: Meclizine HCl 25 MG TABLET PO ×2 (14:28→21:06)
[2024-05-03 16:11] LABS: Glucose, Whole Blood 149 mg/dL (60-115)
[2024-05-03] MEDS: metFORMIN HCl 500 MG TABLET PO (16:59)
[2024-05-03] MEDS: 0.9 % Sodium Chloride Flush 3 ML SYRINGE IVFLUSH ×2 (17:00→21:06)
[2024-05-03 20:10] LABS: Glucose, Whole Blood 155 mg/dL (60-115)
[2024-05-03] MEDS: Montelukast Sodium 10 MG TABLET PO (21:05)
[2024-05-03] MEDS: cloNIDine HCL 0.2 MG TABLET PO (21:05)
[2024-05-03] MEDS: Docusate Sodium 100 MG CAPSULE PO (21:05)
[2024-05-03] MEDS: Tamsulosin HCL 0.4 MG CAPSULE PO (21:05)
[2024-05-04] VITALS (7 sets, daily range): BP systolic 114–144; BP diastolic 58–75; PULSE 68–86; RESP 16–18; TEMP 36.1–36.8; O2SAT 95–96
[2024-05-04] MEDS: traZODone HCL 50 MG TABLET 150 MG PO ×2 (02:43→23:33)
[2024-05-04] MEDS: Levothyroxine Sodium 75 MCG TABLET PO (05:59)
[2024-05-04 07:50] LABS: Glucose, Whole Blood 127 mg/dL (60-115)
[2024-05-04] MEDS: Fluticasone/Vilanterol 100/25 BLST.W.DEV 1 PUFF INHALE (07:58)
[2024-05-04] MEDS: Atorvastatin Calcium 40 MG TABLET PO (08:02)
[2024-05-04] MEDS: Isosorbide Mononitrate 60 MG TAB.ER.24H PO (08:02)
[2024-05-04] MEDS: metFORMIN HCl 500 MG TABLET PO ×2 (08:02→12:03)
[2024-05-04] MEDS: DULoxetine HCl 60 MG CAPSULE.DR 120 MG PO (08:02)
[2024-05-04] MEDS: Loratadine 10 MG TABLET PO (08:02)
[2024-05-04] MEDS: Metoprolol Succinate ER 100 MG TAB.ER.24H 200 MG PO (08:03)
[2024-05-04] MEDS: Finasteride 5 MG TABLET PO (08:03)
[2024-05-04] MEDS: Meclizine HCl 25 MG TABLET PO ×3 (08:03→22:01)
[2024-05-04] MEDS: Gabapentin 100 MG CAPSULE PO (08:03)
[2024-05-04] MEDS: Furosemide 40 MG TABLET PO (08:03)
[2024-05-04] MEDS: Tamsulosin HCL 0.4 MG CAPSULE PO ×2 (08:03→22:01)
[2024-05-04] MEDS: hydrALAZINE HCl 50 MG TABLET 100 MG PO ×3 (08:03→22:01)
[2024-05-04] MEDS: buPROPion HCl XL 300 MG TAB.ER.24H PO (08:03)
[2024-05-04] MEDS: Docusate Sodium 100 MG CAPSULE PO ×2 (08:03→22:01)
[2024-05-04] MEDS: 0.9 % Sodium Chloride Flush 3 ML SYRINGE IVFLUSH ×3 (08:04→22:02)
[2024-05-04] MEDS: oxyCODONE HCl Immed Release 5 MG TABLET PO (08:11)
--- NOTE | 2024-05-04 09:12 | HO.POSTANES ---
Post Anesthesia Evaluation Post Anesthesia Evaluation Date of Service: 05/02/24 Vital Signs: Vital Signs Temp Pulse Resp BP Pulse Ox O2 Del Method 05/04/24 07:59 86 16 05/04/24 07:42 98.3 F 82 16 144/72 H 95 Room Air 05/04/24 04:00 96.9 F 82 16 114/58 L 95 Room Air 05/03/24 23:45 97.1 F 84 18 139/71 93 Room Air Anesthesia: General Mental Status: Awake Pain Control: Satisfactory Nausea/Vomiting: None Hydration: Adequate Anesthesia-Related Issues: No Anes. Related Issues
[2024-05-04 11:22] LABS: Glucose, Whole Blood 197 mg/dL (60-115)
--- NOTE | 2024-05-04 13:11 | P.PNUR_ITS ---
Subjective Subjective Date of Service: 06/03/24 Interval history: S/P TURP for JEFFERY/urinary retention. On CBI for hematuria. no clots overnight. Will continue CBI today. Physical Exam 2 Vital Signs: Vital Signs: Last Vital Signs Temp 98.3 F 05/04/24 07:42 Pulse 86 05/04/24 07:59 Resp 16 05/04/24 07:59 BP 144/72 H 05/04/24 07:42 Pulse Ox 95 05/04/24 07:42 O2 Del Method Room Air 05/04/24 07:42 O2 Flow Rate 2 05/03/24 11:34 BMI result Body Mass Index 31.6 Urology Results Labs 05/03/24 05:17 05/03/24 05:17 Labs: Laboratory Results - last 24 hr 05/03/24 05/03/24 05/04/24 16:02 20:06 07:44 POC Glucose 149 H 155 H 127 H 05/04/24 11:15 POC Glucose 197 H Progress Note: A&P Assessment and plan (1) Urinary retention: Status: Resolved (2) Hematuria: Status: Acute Plan Cont CBI Medicine consult to manage Diabetes/htn Time Spent With Patient Time: Total time managing care of this patient today ____ minutes.
--- NOTE | 2024-05-04 13:15 | W.PM.OPN ---
Operative Note Operative Note Date of Service: 05/02/24 Narrative: PREOP DIAGNOSIS: Bladder outlet obstruction, enlarged prostate, urinary retention POSTOP DIAGNOSIS: Bladder outlet obstruction, enlarged prostate, urinary retention PROCEDURE: CYSTOSCOPY TRANSURETHRAL RESECTION OF Prostate Anesthesia: General Details of procedure: The patient was brought into the operating room placed on the OR table in supine position. Gentamycin 160 mg, 2 g of Rocephin IV. General anesthesia was administered. The patient was repositioned into lithotomy position, nathan removed, prepped and draped in the usual sterile fashion. Time-out was done per protocol. The 24 Bruneian resectoscope was passed transurethrally into the bladder. The bulbous urethra was within normal limits. The prostatic urethra - trilobar enlargement with obstructive median lobe. Visualization of the bladder, trigone in normal position, moderate trabeculations and cellulle changes. The loop resectoscope was used to resect the prostate, the right, left and median lobe, care was taken to preserve the Veru, the Ellik was used to irrigate out the prostatic chips. Once there was good hemostasis the resectoscope was removed. A [address] catheter 30 cc balloon was passed without difficulty. 55 mL H20 injected into the balloon, nathan placed on tension. CBI with Normal Saline was started in OR. The patient was brought out of anesthesia and taken to recovery in stable condition. Complications: None Drains: [address] catheter 30 cc balloon
--- NOTE | 2024-05-04 13:49 | HO.PM.IMCN ---
History of Present Illness Data of Consult Service Date: 05/04/24 Requesting physician: Narda Hernandez Primary Care Provider: Brandie Evangelista DO HPI Reason for consult: poor control HTN and DM 74 yo male with a pmhx of HTN, T2DM, LUCA, obesity, asthma, HLD, BPH just s/p TURP on CBI for hematuria. multiple meds for HTN including metoprolol 200mg QD, hydralazine 100mg TID, furosemide 40mg QD, with tamsulosin and clonidine at night. he reports similar BP control at home usually systolic in the 140s. mild headache since admission. DM he reports is also well controlled at home with metformin only. unsure his last hgba1c and is unsure when it was checked. on a diabetic diet and metformin here. Review of Systems Constitutional: Constitutional: Reports headache(s) Eyes: Eyes: Denies change in vision ENT: Reports dizziness and Reports headache(s) Cardiovascular: Cardiovascular: Denies dyspnea Respiratory: Respiratory: Denies chest congestion, Denies cough and Denies dyspnea Genitourinary: Genitourinary: Reports as per HPI Integumentary/Breasts: Skin/Breast: Denies rash Neurologic: Reports dizziness and Reports headache(s) [facility] Medical History (Updated 05/04/24 @ 13:56 by Allison Santizo PA-C) Sleep apnea Thyroid disease Depression LUCA (obstructive sleep apnea) Obesity (BMI 30-39.9) Lipoma of neck Coronary artery disease Chronic low back pain Asthma Hyperlipidemia BPH (benign prostatic hyperplasia) Diabetes Personal history of COVID-19 Hypertension Allergic rhinitis COPD (chronic obstructive pulmonary disease) Family History Mother No problems noted. Father No problems noted. 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) Alcohol intake: never Patient Tobacco Use Status: Never used Tobacco Use of substances other than those prescribed or required for medical reasons: No Currently Displaying Signs/Symptoms of Drug Intoxication Withdrawal: No Are you DNR?: No Advance Directives: No Advance Directives Information Provided: Yes Advance Directives on File: No Advance Directives Date on File: 05/14/20 service: No Meds Allergies Allergy/AdvReac Type Severity Reaction Status Date / Time No Known Allergies Allergy Verified 03/31/24 10:18 Active Medications: Current Medications Acetaminophen (Acetaminophen 325 Mg Tablet) 650 mg PO Q6H PRN PRN Reason: Pain Albuterol Sulfate (Albuterol Sulfate (0.083%) 2.5 Mg/3 Ml Vial.Neb) 2.5 mg INHALE ONCE PRN PRN Reason: Shortness of Breath/Wheezing Albuterol Sulfate (Albuterol Sulfate 90 Mcg 8 Gm Inhaler) 2 puff INHALE Q4H PRN PRN Reason: Shortness Of Breath Or Wheezing Atorvastatin Calcium (Atorvastatin Calcium 40 Mg Tablet) 40 mg PO DAILY [facility] Last Admin: 05/04/24 08:02 Dose: 40 mg Bupropion HCl (Bupropion Hcl Xl 300 Mg Tab.Er.24h) 300 mg PO DAILY [facility] Last Admin: 05/04/24 08:03 Dose: 300 mg Calcium Carbonate (Calcium Carbonate 750 Mg Tab.Chew) 750 mg PO Q4H PRN PRN Reason: Heartburn Clonidine HCl (Clonidine Hcl 0.2 Mg Tablet) 0.2 mg PO BEDTIME [facility]; Protocol Last Admin: 05/03/24 21:05 Dose: 0.2 mg Docusate Sodium (Docusate Sodium 100 Mg Capsule) 100 mg PO BID [facility] Last Admin: 05/04/24 08:03 Dose: 100 mg Duloxetine HCl (Duloxetine Hcl 60 Mg Capsule.Dr) 120 mg PO DAILY [facility] Last Admin: 05/04/24 08:02 Dose: 120 mg Finasteride (Finasteride 5 Mg Tablet) 5 mg PO DAILY [facility] Last Admin: 05/04/24 08:03 Dose: 5 mg Fluticasone/Vilanterol (Fluticasone/Vilanterol 100/25 Blst.W.Dev) 1 puff INHALE RDAILY [facility] Last Admin: 05/04/24 07:58 Dose: 1 puff Furosemide (Furosemide 40 Mg Tablet) 40 mg PO DAILY [facility]; Protocol Last Admin: 05/04/24 08:03 Dose: 40 mg Gabapentin (Gabapentin 100 Mg Capsule) 100 mg PO DAILY [facility] Last Admin: 05/04/24 08:03 Dose: 100 mg Hydralazine HCl (Hydralazine Hcl 50 Mg Tablet) 100 mg PO TID [facility]; Protocol Last Admin: 05/04/24 08:03 Dose: 100 mg Hydromorphone HCl (Hydromorphone Hcl 0.5 Mg/0.5 Ml Syringe) 0.5 mg IVPUSH Q3H PRN; Protocol PRN Reason: Pain, Severe (Pain Scale 7-10) Last Admin: 05/03/24 08:49 Dose: 0.5 mg Isosorbide Mononitrate (Isosorbide Mononitrate 60 Mg Tab.Er.24h) 60 mg PO DAILY [facility]; Protocol Last Admin: 05/04/24 08:02 Dose: 60 mg Levothyroxine Sodium (Levothyroxine Sodium 75 Mcg Tablet) 75 mcg PO DAILY@0600 [facility] Last Admin: 05/04/24 05:59 Dose: 75 mcg Loratadine (Loratadine 10 Mg Tablet) 10 mg PO DAILY [facility] Last Admin: 05/04/24 08:02 Dose: 10 mg Magnesium Hydroxide (Milk Of Magnesia 30 Ml Oral.Susp) 30 ml PO DAILY PRN PRN Reason: Constipation Meclizine HCl (Meclizine Hcl 25 Mg Tablet) 25 mg PO TID [facility] Last Admin: 05/04/24 08:03 Dose: 25 mg Melatonin (Melatonin 3 Mg Tablet) 6 mg PO BEDTIME PRN PRN Reason: Insomnia Last Admin: 05/02/24 22:53 Dose: 6 mg Metformin HCl (Metformin Hcl 500 Mg Tablet) 500 mg PO TIDWM [facility] Last Admin: 05/04/24 12:03 Dose: 500 mg Metoprolol Succinate (Metoprolol Succinate Er 100 Mg Tab.Er.24h) 200 mg PO DAILY [facility]; Protocol Last Admin: 05/04/24 08:03 Dose: 200 mg Montelukast Sodium (Montelukast Sodium 10 Mg Tablet) 10 mg PO BEDTIME [facility] Last Admin: 05/03/24 21:05 Dose: 10 mg Naloxone HCl (Naloxone Hcl 0.4 Mg/Ml Vial) 0.04 mg IVPUSH Q5M PRN PRN Reason: Excessive sedation or RR < 8 Naloxone HCl (Naloxone Hcl 0.4 Mg/Ml Vial) 0.1 mg IVPUSH Q2M PRN PRN Reason: Respiratory Rate < 10 Nitroglycerin (Nitroglycerin 0.4 Mg Tab.Subl) 0.4 mg SUBLINGUAL Q5MX3 PRN PRN Reason: chest pain Ondansetron HCl (Ondansetron Hcl 4 Mg/2 Ml Vial) 4 mg IVPUSH Q8H PRN PRN Reason: Nausea and Vomiting Oxycodone HCl (Oxycodone Hcl Immed Release 5 Mg Tablet) 5 mg PO Q6H PRN PRN Reason: Pain, Severe (Pain Scale 4-6) Last Admin: 05/04/24 08:11 Dose: 5 mg Polyethylene Glycol (Polyethylene Glycol 3350 17 Gm Powd.Pack) 17 gm PO DAILY [facility] Last Admin: 05/04/24 08:14 Dose: Not Given Sodium Chloride (0.9 % Sodium Chloride Flush 3 Ml Syringe) 3 ml IVFLUSH QSHIFT [facility] Last Admin: 05/04/24 08:04 Dose: 3 ml Tamsulosin HCl (Tamsulosin Hcl 0.4 Mg Capsule) 0.4 mg PO BID [facility] Last Admin: 05/04/24 08:03 Dose: 0.4 mg Temazepam (Temazepam 15 Mg Capsule) 30 mg PO BEDTIME PRN PRN Reason: Insomnia Trazodone HCl (Trazodone Hcl 50 Mg Tablet) 150 mg PO BEDTIME PRN PRN Reason: Insomnia Last Admin: 05/04/24 02:43 Dose: 150 mg Home Medications ?Medication ?Instructions ?Recorded ?Confirmed ?Last Taken ?Type atorvastatin 40 mg tablet 40 mg PO DAILY 10/24/20 05/03/24 05/01/24 History duloxetine 60 mg capsule,delayed 120 mg PO DAILY 10/24/20 05/03/24 05/01/24 History release furosemide 40 mg tablet 40 mg PO DAILY 10/24/20 05/03/24 05/01/24 History gabapentin 100 mg capsule 100 mg PO DAILY Pain 10/24/20 05/03/24 05/01/24 History isosorbide mononitrate 60 mg 60 mg PO DAILY 10/24/20 05/03/24 05/01/24 History tablet,extended release 24 hr levothyroxine 75 mcg tablet 75 mcg PO DAILY@0600 10/24/20 05/03/24 05/01/24 History meclizine 25 mg tablet 25 mg PO TID Vertigo 10/24/20 05/03/24 05/01/24 History montelukast 10 mg tablet 10 mg PO BEDTIME 10/24/20 05/03/24 05/01/24 History trazodone 150 mg tablet 150 mg PO BEDTIME PRN Insomnia 10/24/20 05/03/24 05/01/24 History aspirin 81 mg tablet,delayed 1 tab PO DAILY 05/19/21 05/03/24 05/01/24 History release hydralazine 100 mg tablet 100 mg PO TID 05/19/21 05/03/24 05/01/24 History metformin 500 mg tablet 1 tab PO TIDWMEAL 05/19/21 05/03/24 05/01/24 History clonidine HCl 0.2 mg tablet 0.2 mg PO BEDTIME 07/29/22 05/03/24 05/01/24 History acetaminophen 650 mg 650 mg PO TID PRN Pain 04/05/23 05/03/24 05/01/24 History tablet,extended release ascorbic acid (vitamin C) 250 mg 500 mg PO DAILY 04/05/23 05/03/24 05/01/24 History tablet (Vitamin C) bupropion HCl 300 mg 24 hr tablet, 300 mg PO DAILY 04/05/23 05/03/24 05/01/24 History extended release docusate sodium 100 mg capsule 100 mg PO BID 04/05/23 05/03/24 05/01/24 History albuterol sulfate 90 mcg/actuation 2 puff inhalation Q4-6H PRN 06/24/23 05/03/24 05/01/24 History aerosol inhaler (Ventolin HFA) Shortness Of Breath Or Wheezing triamcinolone acetonide 0.1 % 1 appl topical DAILY 06/24/23 05/03/24 05/01/24 History topical ointment metoprolol succinate 200 mg 200 mg PO DAILY 11/16/23 05/03/24 05/01/24 History tablet,extended release 24 hr polyethylene glycol 3350 17 17 g PO DAILY 11/16/23 05/03/24 05/01/24 History gram/dose oral powder budesonide-formoterol HFA 160 2 puff inhalation BID 01/10/24 05/03/24 05/01/24 History mcg-4.5 mcg/actuation aerosol inhaler (Symbicort) cetirizine 10 mg tablet 10 mg PO DAILY 01/10/24 05/03/24 05/01/24 History cholecalciferol (vitamin D3) 50 50 mcg PO DAILY 01/10/24 05/03/24 05/01/24 History mcg (2,000 unit) tablet (Vitamin D3) frtslrqt-hut-fqhqf acid 0.4 1 tab PO DAILY 01/10/24 05/03/24 05/01/24 History mg-lycopene 300 mcg-lutein 250 mcg tablet (Cerovite Senior) temazepam 30 mg capsule 30 mg PO BEDTIME PRN Insomnia 01/10/24 05/03/24 05/01/24 History tramadol 50 mg tablet 50 mg PO DAILY PRN Pain 01/10/24 05/03/24 05/01/24 History ferrous sulfate 325 mg (65 mg 325 mg PO BID 05/03/24 05/03/24 05/01/24 History iron) tablet (FeroSul) nitroglycerin 0.4 mg sublingual 0.4 mg sublingual NEEDED PRN 05/03/24 05/03/24 05/01/24 History tablet Chest Pain quetiapine 100 mg tablet 100 mg BEDTIME 05/03/24 05/03/24 05/01/24 History Physical Exam Vital Signs and Narrative: Vital Signs: Last Vital Signs Temp 98.3 F 05/04/24 07:42 Pulse 86 05/04/24 07:59 Resp 16 05/04/24 07:59 BP 144/72 H 05/04/24 07:42 Pulse Ox 95 05/04/24 07:42 O2 Del Method Room Air 05/04/24 07:42 O2 Flow Rate 2 05/03/24 11:34 BMI result Body Mass Index 31.6 General: AOx3, no acute distress, thai-speaking, 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 HTN - BPs better than 2 days ago. 140s/60-80 - BP stable around his normal home control - continue metoprolol 200 q.d., hydralazine 100 t.i.d., furosemide 40 q.d., tamsulosin 0.4 q.d. and clonidine 0.2 q.h.s.. DM - hold metformin - add SSI - continue diabetic diet Thank you for allowing me to participate in the pt's care. Signing off for now. Please contact the medical team if any questions or concerns.
[2024-05-04 15:58] LABS: Glucose, Whole Blood 100 mg/dL (60-115)
[2024-05-04 19:46] LABS: Glucose, Whole Blood 165 mg/dL (60-115)
[2024-05-04] MEDS: Montelukast Sodium 10 MG TABLET PO (22:01)
[2024-05-04] MEDS: cloNIDine HCL 0.2 MG TABLET PO (22:01)
[2024-05-04] MEDS: Insulin Lispro 100 UNIT/ML 3 ML VIAL SUBCUT (22:01)
[2024-05-05] VITALS (8 sets, daily range): BP systolic 132–159; BP diastolic 66–82; PULSE 73–78; RESP 16–20; TEMP 36.2–37.3; O2SAT 94–97
--- NOTE | 2024-05-05 | ECG_ITS ---
Test Reason : chest pain Blood Pressure : / mmHG Vent. Rate : 076 BPM Atrial Rate : 076 BPM P-R Int : 174 ms QRS Dur : 094 ms QT Int : 370 ms P-R-T Axes : 063 -32 -64 degrees QTc Int : 416 ms Sinus rhythm with occasional Premature ventricular complexes Left axis deviation Nonspecific ST and T wave abnormality Abnormal ECG When compared to the previous EKG of Premature ventricular complexes are now Present Referred By: Roberto Cruz Electronically Signed By:OLGA MCCORMICK MD
[2024-05-05] MEDS: Levothyroxine Sodium 75 MCG TABLET PO (05:51)
[2024-05-05 07:30] LABS: Glucose, Whole Blood 125 mg/dL (60-115)
[2024-05-05] MEDS: Fluticasone/Vilanterol 100/25 BLST.W.DEV 1 PUFF INHALE (07:38)
[2024-05-05] MEDS: Metoprolol Succinate ER 100 MG TAB.ER.24H 200 MG PO (08:29)
[2024-05-05] MEDS: Atorvastatin Calcium 40 MG TABLET PO (08:29)
[2024-05-05] MEDS: Meclizine HCl 25 MG TABLET PO ×2 (08:30→15:51)
[2024-05-05] MEDS: hydrALAZINE HCl 50 MG TABLET 100 MG PO ×2 (08:30→15:50)
[2024-05-05] MEDS: Docusate Sodium 100 MG CAPSULE PO (08:31)
[2024-05-05] MEDS: Tamsulosin HCL 0.4 MG CAPSULE PO (08:32)
[2024-05-05] MEDS: Finasteride 5 MG TABLET PO (08:33)
[2024-05-05] MEDS: Isosorbide Mononitrate 60 MG TAB.ER.24H PO (08:33)
[2024-05-05] MEDS: Furosemide 40 MG TABLET PO (08:35)
[2024-05-05] MEDS: DULoxetine HCl 60 MG CAPSULE.DR 120 MG PO (08:35)
[2024-05-05] MEDS: buPROPion HCl XL 300 MG TAB.ER.24H PO (08:35)
[2024-05-05] MEDS: Loratadine 10 MG TABLET PO (08:42)
[2024-05-05] MEDS: 0.9 % Sodium Chloride Flush 3 ML SYRINGE IVFLUSH ×2 (08:43→15:53)
--- NOTE | 2024-05-05 09:00 | ECG_ITS ---
Test Reason : chest pain Blood Pressure : / mmHG Vent. Rate : 076 BPM Atrial Rate : 076 BPM P-R Int : 186 ms QRS Dur : 094 ms QT Int : 354 ms P-R-T Axes : 069 -34 -62 degrees QTc Int : 398 ms Normal sinus rhythm Left axis deviation Nonspecific ST and T wave abnormality Abnormal ECG No previous ECGs available Referred By: Roberto Cruz Electronically Signed By:OLGA MCCORMICK MD
[2024-05-05] MEDS: Gabapentin 100 MG CAPSULE PO (09:54)
[2024-05-05] MEDS: Acetaminophen 325 MG TABLET 650 MG PO (09:54)
--- NOTE | 2024-05-05 10:43 | HO.PM.IMPN ---
Subjective Subjective Date of Service: 05/05/24 Interval History: pt c/o substernal chest pain and L shoulder heaviness this AM. was 9/10 now improved to 6/10. sharp pain, intermittent. reports a hx of asthma, this does not feel as significant as the chest pain he gets with an asthma exacerbation. also some epigastric pain, no nausea or vomiting. hx of angina followed by cardiology Dr Kaur. hx of DVT >10 years ago. Constitutional Constitutional: Denies headache(s) ENT Ears, Nose, Mouth, and Throat: Denies dizziness, Denies facial pain, Denies headache(s), Denies nasal congestion and Denies nasal discharge no jaw pain Cardiovascular Cardiovascular: Reports as per HPI Respiratory Respiratory: Denies cough and Denies wheezing Musculoskeletal Musculoskeletal: Reports as per HPI, Denies numbness and Denies tingling Neurologic Neurologic: Denies dizziness, Denies headache(s), Denies numbness and Denies tingling Allergic/Immunologic Allergic/Immunologic: Denies wheezing Physical Exam Vital Signs: Vital Signs: Last Vital Signs Temp 97.1 F 05/05/24 07:17 Pulse 73 05/05/24 08:29 Resp 16 05/05/24 07:39 BP 156/82 H 05/05/24 08:35 Pulse Ox 94 05/05/24 07:17 O2 Del Method Room Air 05/05/24 07:17 O2 Flow Rate 2 05/03/24 11:34 BMI result Body Mass Index 31.6 General: AOx3, no acute distress,laying comfortably in bed, 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 Resp: CTA bilaterally CVS: RRR, +murmur LLSB GI: +BS, NT, no distention Skin: Warm, dry Psych: Appropriate affect Objective Data Active Medications Acetaminophen (Acetaminophen 325 Mg Tablet) 650 mg PO Q6H PRN PRN Reason: Pain Last Admin: 05/05/24 09:54 Dose: 650 mg Documented By: SURI Albuterol Sulfate (Albuterol Sulfate (0.083%) 2.5 Mg/3 Ml Vial.Neb) 2.5 mg INHALE ONCE PRN PRN Reason: Shortness of Breath/Wheezing Albuterol Sulfate (Albuterol Sulfate 90 Mcg 8 Gm Inhaler) 2 puff INHALE Q4H PRN PRN Reason: Shortness Of Breath Or Wheezing Atorvastatin Calcium (Atorvastatin Calcium 40 Mg Tablet) 40 mg PO DAILY [facility] Last Admin: 05/05/24 08:29 Dose: 40 mg Documented By: LYNNETTE Bupropion HCl (Bupropion Hcl Xl 300 Mg Tab.Er.24h) 300 mg PO DAILY [facility] Last Admin: 05/05/24 08:35 Dose: 300 mg Documented By: LYNNETTE Calcium Carbonate (Calcium Carbonate 750 Mg Tab.Chew) 750 mg PO Q4H PRN PRN Reason: Heartburn Clonidine HCl (Clonidine Hcl 0.2 Mg Tablet) 0.2 mg PO BEDTIME [facility]; Protocol Last Admin: 05/04/24 22:01 Dose: 0.2 mg Documented By: RICARDO Docusate Sodium (Docusate Sodium 100 Mg Capsule) 100 mg PO BID [facility] Last Admin: 05/05/24 08:31 Dose: 100 mg Documented By: LYNNETTE Duloxetine HCl (Duloxetine Hcl 60 Mg Capsule.Dr) 120 mg PO DAILY [facility] Last Admin: 05/05/24 08:35 Dose: 120 mg Documented By: LYNNETTE Finasteride (Finasteride 5 Mg Tablet) 5 mg PO DAILY [facility] Last Admin: 05/05/24 08:33 Dose: 5 mg Documented By: LYNNETTE Fluticasone/Vilanterol (Fluticasone/Vilanterol 100/25 Blst.W.Dev) 1 puff INHALE RDAILY [facility] Last Admin: 05/05/24 07:38 Dose: 1 puff Documented By: SHERRILL Furosemide (Furosemide 40 Mg Tablet) 40 mg PO DAILY [facility]; Protocol Last Admin: 05/05/24 08:35 Dose: 40 mg Documented By: LYNNETTE Gabapentin (Gabapentin 100 Mg Capsule) 100 mg PO DAILY [facility] Last Admin: 05/05/24 09:54 Dose: 100 mg Documented By: SURI Glucose (Glucose Gel 15 Gm Gel..Gram.) 15 gm PO Q15M PRN; Protocol PRN Reason: per Hypoglycemia Standing Ord. Hydralazine HCl (Hydralazine Hcl 50 Mg Tablet) 100 mg PO TID [facility]; Protocol Last Admin: 05/05/24 08:30 Dose: 100 mg Documented By: LYNNETTE Hydromorphone HCl (Hydromorphone Hcl 0.5 Mg/0.5 Ml Syringe) 0.5 mg IVPUSH Q3H PRN; Protocol PRN Reason: Pain, Severe (Pain Scale 7-10) Last Admin: 05/03/24 08:49 Dose: 0.5 mg Documented By: MARIA ALEJANDRA Dextrose (D10) 250 mls @ 750 mls/hr IV Q15M PRN; Protocol PRN Reason: per Hypoglycemia Standing Ord. Insulin Human Lispro (Insulin Lispro 100 Unit/Ml 3 Ml Vial) 0 unit SUBCUT QIDACHS [facility]; Protocol Last Admin: 05/05/24 08:00 Dose: Not Given Documented By: LYNNETTE Non-Admin Reason: No Insulin Coverage Comments: POC 125. No coverage needed Isosorbide Mononitrate (Isosorbide Mononitrate 60 Mg Tab.Er.24h) 60 mg PO DAILY [facility]; Protocol Last Admin: 05/05/24 08:33 Dose: 60 mg Documented By: LYNNETTE Levothyroxine Sodium (Levothyroxine Sodium 75 Mcg Tablet) 75 mcg PO DAILY@0600 [facility] Last Admin: 05/05/24 05:51 Dose: 75 mcg Documented By: RICARDO Loratadine (Loratadine 10 Mg Tablet) 10 mg PO DAILY [facility] Last Admin: 05/05/24 08:42 Dose: 10 mg Documented By: LYNNETTE Magnesium Hydroxide (Milk Of Magnesia 30 Ml Oral.Susp) 30 ml PO DAILY PRN PRN Reason: Constipation Meclizine HCl (Meclizine Hcl 25 Mg Tablet) 25 mg PO TID [facility] Last Admin: 05/05/24 08:30 Dose: 25 mg Documented By: LYNNETTE Melatonin (Melatonin 3 Mg Tablet) 6 mg PO BEDTIME PRN PRN Reason: Insomnia Last Admin: 05/02/24 22:53 Dose: 6 mg Documented By: RICARDO Metoprolol Succinate (Metoprolol Succinate Er 100 Mg Tab.Er.24h) 200 mg PO DAILY [facility]; Protocol Last Admin: 05/05/24 08:29 Dose: 200 mg Documented By: LYNNETTE Montelukast Sodium (Montelukast Sodium 10 Mg Tablet) 10 mg PO BEDTIME [facility] Last Admin: 05/04/24 22:01 Dose: 10 mg Documented By: RICARDO Naloxone HCl (Naloxone Hcl 0.4 Mg/Ml Vial) 0.04 mg IVPUSH Q5M PRN PRN Reason: Excessive sedation or RR < 8 Naloxone HCl (Naloxone Hcl 0.4 Mg/Ml Vial) 0.1 mg IVPUSH Q2M PRN PRN Reason: Respiratory Rate < 10 Nitroglycerin (Nitroglycerin 0.4 Mg Tab.Subl) 0.4 mg SUBLINGUAL Q5MX3 PRN PRN Reason: chest pain Ondansetron HCl (Ondansetron Hcl 4 Mg/2 Ml Vial) 4 mg IVPUSH Q8H PRN PRN Reason: Nausea and Vomiting Oxycodone HCl (Oxycodone Hcl Immed Release 5 Mg Tablet) 5 mg PO Q6H PRN PRN Reason: Pain, Severe (Pain Scale 4-6) Last Admin: 05/04/24 08:11 Dose: 5 mg Documented By: MARIA ALEJANDRA Polyethylene Glycol (Polyethylene Glycol 3350 17 Gm Powd.Pack) 17 gm PO DAILY [facility] Last Admin: 05/05/24 09:32 Dose: Not Given Documented By: SURI Non-Admin Reason: Patient Refused Sodium Chloride (0.9 % Sodium Chloride Flush 3 Ml Syringe) 3 ml IVFLUSH [facility] Last Admin: 05/05/24 08:43 Dose: 3 ml Documented By: LYNNETTE Tamsulosin HCl (Tamsulosin Hcl 0.4 Mg Capsule) 0.4 mg PO BID [facility] Last Admin: 05/05/24 08:32 Dose: 0.4 mg Documented By: LYNNETTE Temazepam (Temazepam 15 Mg Capsule) 30 mg PO BEDTIME PRN PRN Reason: Insomnia Trazodone HCl (Trazodone Hcl 50 Mg Tablet) 150 mg PO BEDTIME PRN PRN Reason: Insomnia Last Admin: 05/04/24 23:33 Dose: 150 mg Documented By: IRCARDO Labs 05/03/24 05:17 05/03/24 05:17 Labs: Laboratory Results - last 24 hr 05/04/24 05/04/24 05/04/24 11:15 15:47 19:38 POC Glucose 197 H 100 165 H 05/05/24 07:14 POC Glucose 125 H Assessment and Plan (1) Chest pain: Status: Acute (2) GERD (gastroesophageal reflux disease): Status: Acute Plan 74 yo male with chest pain, reported angina followed by cardio outpt, has PRN nitro at home. pain improving. EKG stable from previous and trop negative. not likely cardiac chest pain - likely GERD/gastritis - add maalox - recheck trop and EKG if pain worsens Quality Stroke Does the patient have a stroke diagnosis?: No VTE Prior VTE?: Yes VTE Risk Level:: Medical - moderate - high VTE Device Contraindication: N/A - Device Ordered VTE Drug Contraindication: Treatment Not Indicated
[2024-05-05 11:24] LABS: Glucose, Whole Blood 211 mg/dL (60-115)
[2024-05-05] MEDS: Insulin Lispro 100 UNIT/ML 3 ML VIAL SUBCUT (11:40)
[2024-05-05] MEDS: oxyCODONE HCl Immed Release 5 MG TABLET PO (13:23)
--- NOTE | 2024-05-05 15:24 | MHC.CM.PN ---
no rounds on this pt he is surgical
--- NOTE | 2024-05-05 15:40 | PC.NURSE ---
F/C-CBI was clamped at 0930 per Urologist order. Urologist at bedside and remove F/C AT 1200, Pt. is DTV at 1800.
[2024-05-05 15:57] LABS: Glucose, Whole Blood 132 mg/dL (60-115)
--- NOTE | 2024-05-05 16:18 | P.DS_ITS ---
DS: Providers Provider Date of Service: 05/02/24 Date of discharge: 05/05/24 Primary care physician: Brandie Evangelista DO Attending physician on admission: Narda Hernandez Consults: 05/04/24 13:17 Consult to Hospitalist Routine Comment: s/p TURP Consulting Provider: Hospitalist Reason For Exam: diabetes management Attending physician on discharge: Narda Hernandez DS: Diagnosis Discharge Diagnosis (1) Chest pain: Status: Resolved (2) GERD (gastroesophageal reflux disease): Status: Acute DS: Summary Hospital Course Hospital Course: Emory is a 74-year-old Cam[place]onian-speaking male who has multiple medical conditions including diabetes and hypertension. He developed urinary retention due to bladder outlet obstruction secondary to prostate enlarged. He underwent transurethral resection of prostate on 05/02/24 and was placed on continuous bladder irrigation for expected hematuria from procedure. The patient required CBI for 2 days. During admission the hospitalist he was called to manage his diabetes and hypertension. He was discharged without a [place] catheter on 05/05/24, urine was pink tinged. Status at Discharge Cognitive/behavioral status at discharge: Stable Functional status at discharge: independent ambulation Overall status at discharge: patient is back to baseline Time Attestation Total time managing care of this patient today: 35 mintues. Discharge Coordination Time (in mins): 35 min Specific discharge activities: No heavy lifting over 20 lb Quality: Safe Use of Opioids Does Pt have an Active Cancer Diagnosis on the Problem List?: No Quality: Stroke Does the patient have a stroke diagnosis?: No Physical Exam Vital Signs: Vital Signs: Last Vital Signs Temp 99.2 F 05/05/24 15:06 Pulse 76 05/05/24 15:06 Resp 20 05/05/24 15:06 BP 132/66 05/05/24 15:06 Pulse Ox 96 05/05/24 15:06 O2 Del Method Room Air 05/05/24 15:06 O2 Flow Rate 2 05/03/24 11:34 BMI result Body Mass Index 31.6 DS: Data Data Completed and Pending Completed studies during hospitalization [Text1]: Pending at discharge 05/02/24 20:32 Surgical [PTH] Routine Labs on day of discharge: Laboratory Results - last 24 hr 05/04/24 05/05/24 05/05/24 19:38 07:14 09:11 POC Glucose 165 H 125 H Troponin I High Sens 5.0 D 05/05/24 05/05/24 11:12 15:54 POC Glucose 211 H 132 H Troponin I High Sens Discharge Plan Discharge Patient Disposition: Home, Self-Care Referrals: Brandie Evangelista DO [Primary Care Provider] - 1 Week Discharge Medications: No Action albuterol sulfate [Ventolin HFA] 90 mcg/actuation Hfa Aerosol Inhaler 2 puff INHALATION Q4-6H PRN (Reason: Shortness Of Breath Or Wheezing) triamcinolone acetonide 0.1 % ointment 1 appl topical DAILY metformin 500 mg tablet 1 tab PO TIDWMEAL aspirin 81 mg tablet,delayed release (DR/EC) 1 tab PO DAILY hydralazine 100 mg tablet 100 mg PO TID cetirizine 10 mg Tablet 10 mg PO DAILY tramadol 50 mg Tablet 50 mg PO DAILY PRN (Reason: Pain) temazepam 30 mg Capsule 30 mg PO BEDTIME PRN (Reason: Insomnia) Cerovite Senior 0.4 mg-300 mcg- 250 mcg Tablet 1 tab PO DAILY budesonide-formoterol [Symbicort] 160-4.5 mcg/actuation Hfa Aerosol Inhaler 2 puff INHALATION BID cholecalciferol (vitamin D3) [Vitamin D3] 50 mcg (2,000 unit) Tablet 50 mcg PO DAILY metoprolol succinate 200 mg tablet extended release 24 hr 200 mg PO DAILY polyethylene glycol 3350 17 gram/dose powder 17 g PO DAILY ferrous sulfate [FeroSul] 325 mg (65 mg iron) tablet 325 mg PO BID nitroglycerin 0.4 mg tablet, sublingual 0.4 mg sublingual NEEDED PRN (Reason: Chest Pain) quetiapine 100 mg tablet 100 mg BEDTIME atorvastatin 40 mg tablet 40 mg PO DAILY duloxetine 60 mg capsule,delayed release(DR/EC) 120 mg PO DAILY furosemide 40 mg tablet 40 mg PO DAILY gabapentin 100 mg capsule 100 mg PO DAILY isosorbide mononitrate 60 mg tablet extended release 24 hr 60 mg PO DAILY levothyroxine 75 mcg tablet 75 mcg PO DAILY@0600 meclizine 25 mg tablet 25 mg PO TID montelukast 10 mg tablet 10 mg PO BEDTIME trazodone 150 mg tablet 150 mg PO BEDTIME PRN (Reason: Insomnia) clonidine HCl 0.2 mg tablet 0.2 mg PO BEDTIME doxycycline hyclate 100 mg tablet 100 mg PO BID 7 Days Qty: 14 0RF finasteride [Proscar] 5 mg tablet 5 mg PO DAILY 90 Days Qty: 90 3RF acetaminophen 650 mg tablet extended release 650 mg PO TID PRN (Reason: Pain) ascorbic acid (vitamin C) [Vitamin C] 250 mg tablet 500 mg PO DAILY docusate sodium 100 mg capsule 100 mg PO BID bupropion HCl 300 mg tablet extended release 24 hr 300 mg PO DAILY Discharge Orders: Discharge Order (Routine); Ordered 05/05/24 Ordered By: Narda Hernandez Diet: Advance to usual diet Activity on Discharge: No heavy lifting Print Language: Cam[place]onian Discharge Date/Time: 05/05/24 18:46
== END 2024-05-05 18:46 | disposition home or self-care (01) ==
LOC: HO.SSS 17:29 → HO.S3 21:31
PROVIDERS: Internal Medicine; PCP Family Medicine; Visit Provider Urology
PROC: 0TJB8ZZ Inspection of Bladder, Via Natural or Artificial Opening Endoscopic (ICD-10-PCS; CPT 52000; principal; 2024-05-02 16:30)
DX: N40.1 Benign prostatic hyperplasia with lower urinary tract symptoms (principal); N13.8 Other obstructive and reflux uropathy; R33.8 Other retention of urine; E11.9 Type 2 diabetes mellitus without complications; I10 Essential (primary) hypertension; I25.10 Atherosclerotic heart disease of native coronary artery without angina pectoris; E78.5 Hyperlipidemia, unspecified; J44.9 Chronic obstructive pulmonary disease, unspecified; G47.33 Obstructive sleep apnea (adult) (pediatric); Z79.51 Long term (current) use of inhaled steroids; Z79.84 Long term (current) use of oral hypoglycemic drugs; Z79.899 Other long term (current) drug therapy; Z79.82 Long term (current) use of aspirin; Z98.890 Other specified postprocedural states
CPT/HCPCS: 52601; 36415; 80048; 82947; 84484; 85025; 88305; 93005; 94640; 99222; C1758; J0696; J1171; J1580; J2003; J2405; J2704; J3010; J7120

== ENCOUNTER → 2024-05-02 16:30 | Outpatient (BNV) | payer OTHER, SELFPAY | PROVIDERS: PCP Family Medicine; Visit Provider Physician Assistant | DX: R07.9 Chest pain, unspecified (principal); K21.9 Gastro-esophageal reflux disease without esophagitis | CPT/HCPCS: 99222; 99232 ==

== ENCOUNTER → 2024-05-02 16:30 | Outpatient (BNV) | payer OTHER, SELFPAY | PROVIDERS: PCP Family Medicine; Visit Provider Urology | DX: R07.9 Chest pain, unspecified (principal); K21.9 Gastro-esophageal reflux disease without esophagitis | CPT/HCPCS: 52601; 99024 ==

== ENCOUNTER → 2024-05-05 09:30 | Outpatient (BNV) | payer OTHER, SELFPAY | PROVIDERS: PCP Family Medicine; Visit Provider Internal Medicine Cardiovascular Disease | DX: I49.3 Ventricular premature depolarization (principal); R94.31 Abnormal electrocardiogram [ECG] [EKG] | CPT/HCPCS: 93010 ==

== ENCOUNTER 2024-05-10 14:59 | Outpatient (AMB) | payer OTHER, SELFPAY ==
--- NOTE | 2024-05-10 15:02 | MHC.OFFVIS ---
Intake Visit Reasons: post op bleeding Intake Note: Patient is present for POST OP BLEEDING Urology Medication:TAMSULSOIN, FINASTERIDE Antibiotic Allergy:NONE Blood Thinner:ASPIRIN TODAY'S PVR:61 ML'S Teleradiologist Required: Yes Teleradiologist Name: [id number] Allergies No Known Allergies Allergy (Verified 05/10/24 15:03) HPI Comments Details: 05/10/24--s/p TURP-05/02/24 for Urinary retention due to obstructive prostate. Path-prostate chips-benign. He states urine is [place] in color , no burning with urination, urine flow is good. He states his is not taking the proscar or tamsulosin and has resumed aspirin. I want him to hold on aspirin until urine is clear, increase his water, and resume proscar. Review of chart: 03/31/24--Here for urodynamics. CMG parameters detailed below. Interpretation: Complex uroflow was not obtained, patient presents with nathan catheter. During the filling phase there was normal sensation, bladder capacity was within normal limits, the patient felt that he was at capacity at 303 mL. During the voiding phase the patient was unable to void and had max detrusor pressures of 100 cm H20. A nathan was replaced and 325 mL was drained from the bladder. EMG- Appropriate changes in the waveforms were noted through out the study. There was a decrease in the EMG activity during the voiding c/w normal function of the pelvic floor. I have discussed treatment plan - TURP, discussed risks/benefits to include but not limited to infection, bleeding, need for other surgical procedures. Will request medical clearance, will place an abx suppressive therapy bactrim DS daily until surgery. 03/03/24--Failed multiple voiding trials. Will schedule urodynamics. business continuity analyst used. 01/26/2024--here for cystoscopy. Nathan removed. Cystoscopy findings: moderate trabeculations, mild inflammatory changes consistent with cystitis, there was sediment in the bladder which made visualization suboptimal, no suspicious lesions seen. Pt does not want nathan replaced. Will empiracally treat with bactrim. cont tamsulosin, proscar. Pt to return for NELDA. 12/16/23--Emory is a 73-year-old male who was initially evaluated inpatient at [facility]. He presented on 11/16/2023 to the emergency room with complaints of not being able to urinate. Urology was consulted due to difficult catheterization and then was asked to re-evaluate due to gross hematuria. CT imaging 11/17/2023 noted heterogeneous material in the bladder may represent clot, mild dilatation bilaterally of renal system to the level of the bladder no renal calcifications noted-no renal masses noted. The patient has a [address] He is on tamsulosin 0.4 mg daily. Plan is to remove catheter and he is to return by 14:00 if he is unable to void. I will empirically place him on Bactrim DS 1 tab twice a day and start Proscar 5 mg daily. Follow-up in 1 month for office cystoscopy. [facility] Medical History Sleep apnea Thyroid disease Depression LUCA (obstructive sleep apnea) Obesity (BMI 30-39.9) Lipoma of neck Coronary artery disease Chronic low back pain Asthma Hyperlipidemia BPH (benign prostatic hyperplasia) Diabetes Personal history of COVID-19 Hypertension Allergic rhinitis COPD (chronic obstructive pulmonary disease) Surgical History History of surgery of head Hx of shoulder surgery Hx of umbilical hernia repair History of surgery Hx of bilateral cataract extraction Hx of cardiac catheterization Hx of circumcision History of esophagogastroduodenoscopy (EGD) H/O colonoscopy Family History Mother No problems noted. Father No problems noted. Social History Household Members: None Housing: House Are you a primary care assistant to a significant other at home: No Do you presently have visiting nurse or other home services: Yes (PIPE INSULATOR) Alcohol intake: never Patient Tobacco Use Status: Never used Tobacco Advance Directives Date on File: 05/14/20 service: No Review of Systems Const All systems reviewed & are unremarkable except as noted in HPI and below Reports no additional complaints Eyes Reports no additional complaints ENT Reports no additional complaints Card Reports no additional complaints Resp Reports no additional complaints GI Reports no additional complaints Reports as per HPI Musc Reports no additional complaints Skin/Breast Reports system reviewed and no additional complaints, except as documented Neuro Reports no additional complaints Psych Reports no additional complaints Endo Reports no additional complaints Keegan/Lymph Reports no additional complaints Aller/Immun Reports no additional complaints Office Procedures Post Void Residual Post Residual Void Post Void Residual (PVR): 61 [id number] Void Residual by ultrasound Results AMB Urinalysis, Automated UA Leukoctes 125 Jacinto/uL Last Edit by Deana Acuña [facility] on 05/10/24 15:16 UA Nitrite Negative Last Edit by Deana Acuña [facility] on 05/10/24 15:16 UA Urobilinogen 0.2 mg/dL Last Edit by Deana Acuña [facility] on 05/10/24 15:16 UA Protein 300 mg/dL Last Edit by Deana Acuña [facility] on 05/10/24 15:16 UA pH 5.5 Last Edit by Deana Acuña [facility] on 05/10/24 15:16 UA Blood 200 Nils/uL Last Edit by Deana Acuña [facility] on 05/10/24 15:16 UA Specific [place] 1.020 Last Edit by Deana Acuña [facility] on 05/10/24 15:16 UA Ketone Positive Last Edit by Deana Acuña [facility] on 05/10/24 15:16 UA Bilirubin 0 mg/dL Last Edit by Deana Acuña [facility] on 05/10/24 15:16 UA Glucose 0 mg/dL Last Edit by Deana Acuña [facility] on 05/10/24 15:16 Results Reviewed Results Reviewed: Laboratory Last Values Urine pH (Auto) 5.5 05/10/24 15:15 Specific [place] (Auto) 1.020 05/10/24 15:15 Urine Protein (Auto) 300 mg/dL 05/10/24 15:15 Glucose (UA)(Auto) 0 mg/dL 05/10/24 15:15 Urine Ketones (Auto) Positive 05/10/24 15:15 Urine Blood (Auto) 200 Nils/uL 05/10/24 15:15 Urine Nitrite (Auto) Negative 05/10/24 15:15 Urine Bilirubin (Auto) 0 mg/dL 05/10/24 15:15 Urine Urobilinogen (Auto) 0.2 mg/dL 05/10/24 15:15 Leukocyte Esterase (Auto) 125 Jacinto/uL 05/10/24 15:15 Collected: 05/02/24 Location: [id number].[id number] Received: 05/03/24 Diagnosis Prostate, transurethral resection: 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 Clinical History Retention of urine, unspecified Microscopic Description Microscopic sections reviewed. Material Received Prostate tissue Collected: 12/18/23 Status: COMP Req#: [id number] Received: 12/18/23 Source: Urine Cath Sp Desc: Nathan Cath Subm Dr: Tiffanie Rahman MD Ordered: Urine Culture Procedure Result Verified Urine Culture Final 12/20/23 Organism 1 Klebsiella pneumoniae Quant 50,000 to 100,000 cfu/mL Kleb pneum M.I.C. RX --------- --- Ampicillin >=32 R Ceftriaxone <=0.25 S Gentamicin <=1 S Levofloxacin <=0.12 S Nitrofurantoin 128 R Trimethoprim/Sulfamethoxazole <=20 S Date of Service: 11/17/23 EXAMINATION: CT ABDOMEN AND PELVIS WITHOUT CONTRAST CLINICAL INFORMATION: Pain. Recent Nathan catheter placement. COMPARISON: 11/16/2023 TECHNIQUE: Multidetector volumetric imaging was performed from the superior aspect of the liver through the pubic symphysis. Sagittal and coronal reformatted images were obtained on the technologist's workstation. This CT examination was performed using dose optimization techniques as appropriate, variously including the following: *Automated exposure control *Adjustment of mA and/or kV according to patient size (this includes techniques or standardized protocols for targeted exams where dose is matched to indication/reason for exam; i.e. extremities or head) *Use of iterative reconstruction technique DLP: 742 mGy-cm FINDINGS: LUNG BASES: There is scarring at the right lung base. LIVER, GALLBLADDER, AND BILIARY TREE: The liver is normal in size, shape, and attenuation. No focal hepatic lesion or biliary ductal dilatation is present. There has been a prior cholecystectomy. PANCREAS: Unremarkable. SPLEEN: Unremarkable. ADRENAL GLANDS: There is a stable low-density right adrenal lesion. KIDNEYS AND URETERS: The kidneys are again seen to be irregular in contour. Bilateral renal collecting system and ureteral prominence are again seen extending into the urinary bladder. BLADDER: A Nathan catheter extends into the urinary bladder. There is heterogeneous dense material within the urinary bladder intermixed with some air lucencies. The urinary bladder is distended. GASTROINTESTINAL TRACT: There are diverticula of the descending colon without diverticulitis. There is no evidence for appendicitis. ABDOMINAL WALL: No significant hernia is appreciated. LYMPH NODES: Normal. VASCULAR: There is atherosclerotic plaque of the abdominal aorta and proximal branches. PELVIC VISCERA: Significant prostate gland hypertrophy is again seen. OSSEOUS STRUCTURES: Unremarkable. IMPRESSION: 1. Nathan catheter extends into the urinary bladder. The urinary bladder is distended. There is heterogeneous dense material intermixed with some air lucencies within the urinary bladder which may represent blood products. 2. There is bilateral renal collecting system and ureteral prominence extending into the urinary bladder. 3. Significant prostate gland hypertrophy. 4. Diverticulosis of the descending colon without diverticulitis. 5. Stable low-density right adrenal lesion. Assessment & Plan Assessment & Plan (1) Urinary retention: Comment: s/p TURP 05/02/24 Code(s): R33.9 - Retention of urine, unspecified Category: Medical (2) BPH (benign prostatic hyperplasia): Code(s): N40.0 - Benign prostatic hyperplasia without lower urinary tract symptoms Category: Medical Plan stop flomax cont proscar stop aspirin fu 4-5 weeks Orders: Orders AMB Urinalysis Automated Today Z13.9 - Encounter for screening, unspecified Medications: Refilled finasteride (Proscar) 5 mg PO DAILY 90 days 90 tabs 3RF Discontinued tamsulosin (Flomax) Discontinued Reason: Doctor's Order 0.4 mg PO BID 30 days 60 caps 3RF Patient Instructions: The patient had an opportunity to ask questions regarding treatment plan. The patient expressed understanding and agreement with the above treatment plan. The patient is aware they should contact our office by phone for worsening of their current condition or the appearance of new symptoms. Compliance is encouraged with any medications and followup testing that is ordered. It is a privilege to be allowed the opportunity to participate in the urologic care of your patient. If you have any questions or concerns regarding treatment for the above conditions please do not hesitate to contact me. The office telephone contact is [phone]. This note is constructed in part using voice recognition software. While every effort has been made to ensure accuracy template clerk errors may have been included. Yours sincerely, Narda Hernandez MD Coding Level of Care Code Global (46560) Diagnoses Urinary retention R33.9 BPH (benign prostatic hyperplasia) N40.0 CPT Codes Post Residual Void - PVR CPT Code: 29423-Dyaw Void Residual by ultrasound ([id number])
== END 2024-05-10 15:25 | disposition home or self-care (01) ==
PROVIDERS: PCP Family Medicine; Visit Provider Urology
DX: R33.9 Retention of urine, unspecified (principal); N40.0 Benign prostatic hyperplasia without lower urinary tract symptoms; Z13.9 Encounter for screening, unspecified
CPT/HCPCS: 99024

== ENCOUNTER → 2024-05-10 14:59 | Outpatient (BNVA) | payer OTHER, SELFPAY | PROVIDERS: PCP Family Medicine; Visit Provider Urology | DX: N40.1 Benign prostatic hyperplasia with lower urinary tract symptoms (principal); R33.9 Retention of urine, unspecified | CPT/HCPCS: 51798; 81003; 99212 ==

== ENCOUNTER 2024-05-15 14:05 | Outpatient (AMB) | payer OTHER, SELFPAY ==
--- NOTE | 2024-05-15 14:28 | MHC.OFFVIS ---
Vital Signs 05/15/24 14:29 Height 5 ft 8 in Weight 220 lb BMI 33.4 BP 122/74 Blood Pressure Location Lt brachial Position Sitting Pulse 85 Pulse Source Pulse Oximeter Pulse Oximetry (%) 98 Oxygen Delivery Method Room Air Intake Visit Reasons: Shortness of breath Intake Note: pt is here for follow up and states he had a surgery and had a nathan cath for months, now it is out and haivng just blood, and he states he is having a little pain in the chest, Sports Nutritionist Required: No Allergies No Known Allergies Allergy (Verified 05/15/24 14:46) Medication List - Last Reconciled 05/15/24 by Ibis Peralta MD acetaminophen ER 650 mg PO TID PRN albuterol sulfate 90 mcg/actuation (Ventolin HFA) 2 puffs inhalation Q4-6H PRN ascorbic acid (vitamin C) (Vitamin C) 500 mg PO DAILY aspirin 1 tab PO DAILY atorvastatin 40 mg PO DAILY budesonide-formoterol 160-4.5 mcg/actuation (Symbicort) 2 puffs inhalation BID bupropion HCl XL 300 mg PO DAILY cetirizine 10 mg PO DAILY cholecalciferol (vitamin D3) (Vitamin D3) 50 mcg PO DAILY clonidine HCl 0.2 mg PO BEDTIME docusate sodium 100 mg PO BID duloxetine 120 mg PO DAILY ferrous sulfate (FeroSul) 325 mg PO BID finasteride (Proscar) 5 mg PO DAILY 90 days furosemide 40 mg PO DAILY gabapentin 100 mg PO DAILY hydralazine 100 mg PO TID isosorbide mononitrate ER 60 mg PO DAILY levothyroxine 75 mcg PO DAILY@0600 meclizine 25 mg PO TID metformin 1 tab PO TIDWMEAL metoprolol succinate ER 200 mg PO DAILY montelukast 10 mg PO BEDTIME mihmwbkx-lqg-GF-lycopen-lutein 0.4 mg-300 mcg- 250 mcg (Cerovite Senior) 1 tab PO DAILY nitroglycerin 0.4 mg sublingual NEEDED PRN polyethylene glycol 3350 17 grams PO DAILY quetiapine 100 mg BEDTIME temazepam 30 mg PO BEDTIME PRN tramadol 50 mg PO DAILY PRN trazodone 150 mg PO BEDTIME PRN triamcinolone acetonide 0.1% 1 appl topical DAILY Do you need a note to return to daycare/school/sports/work: No HPI HPI Shortness of breath: Details: THIS 74 YEARS OLD GENTLEMAN WITH GROSS OBESITY, ROUND FACE AND HISTORY OF OBSTRUCTIVE SLEEP APNEA, ALSO HAS CHRONIC OBSTRUCTIVE PULMONARY DISEASE ON CHRONIC ALLERGIC RHINITIS. HE IS HERE FOR FOLLOW-UP AFTER 3 MONTHS. LAST WEEK HE WAS IN THE HOSPITAL FOR 2 DAYS AND HAD NONSPECIFIC CHEST PAIN BUT ACUTE CORONARY SYNDROME WAS RULED OUT, TREATED SYMPTOMATICALLY. PRIOR TO THAT HE HAS HAD URINARY OBSTRUCTION AND WAS TREATED WITH INDWELLING NATHAN CATHETER FOR SEVERAL WEEKS. DURING ALL THIS IS BREATHING STATUS REMAINED RELATIVELY STABLE. HE CONTINUES TO USE SYMBICORT 2 PUFFS B.I.D. AND USES VENTOLIN ONLY OFF AND ON. HE ALSO HAS CHRONIC ALLERGIC RHINITIS WHICH IS CONTROLLED WITH THE USE OF CETIRIZINE 10 MG DAILY AND FLONASE NASAL SPRAY IN BOTH NOSTRILS DAILY WELL MONTELUKAST 10 MG DAILY. HE IS KNOWN TO HAVE OBSTRUCTIVE SLEEP APNEA BUT HAS NOT USED CPAP, THAT IS DUE TO HIS NONCOMPLIANCE THE CPAP MACHINE WAS TAKEN AWAY, AND NOW HE IS NOT ELIGIBLE TO GET THE CPAP FOR A FEW MORE YEARS.. HE HAS MULTIPLE COMORBIDITIES LISTED. [facility] Medical History Sleep apnea Thyroid disease Depression LUCA (obstructive sleep apnea) Obesity (BMI 30-39.9) Lipoma of neck Coronary artery disease Chronic low back pain Asthma Hyperlipidemia BPH (benign prostatic hyperplasia) Diabetes Personal history of COVID-19 Hypertension Allergic rhinitis COPD (chronic obstructive pulmonary disease) Surgical History History of surgery of head Hx of shoulder surgery Hx of umbilical hernia repair History of surgery Hx of bilateral cataract extraction Hx of cardiac catheterization Hx of circumcision History of esophagogastroduodenoscopy (EGD) H/O colonoscopy Family History Mother No problems noted. Father No problems noted. Social History Household Members: None Housing: House Are you a primary morning caregiver to a significant other at home: No Do you presently have visiting nurse or other home services: Yes (HERBOLOGIST) Alcohol intake: never Patient Tobacco Use Status: Never used Tobacco Advance Directives Date on File: 05/14/20 service: No Review of Systems Const All systems reviewed & are unremarkable except as noted in HPI and below Eyes Reports no additional complaints ENT Reports nasal congestion (ALL THE TIMES) and Reports post nasal drip Card Denies chest pain, Denies irregular heart rhythm and Reports dyspnea on exertion Resp Reports cough (frequent) and Reports dyspnea on exertion GI Reports no additional complaints Musc Reports no additional complaints Neuro Reports no additional complaints Psych Reports depression Physical Exam Vital Signs: Last Vital Signs Pulse 85 05/15/24 14:29 BP 122/74 05/15/24 14:29 Pulse Ox 98 05/15/24 14:29 Oxygen Delivery Method Room Air 05/15/24 14:29 BMI result Body Mass Index 33.4 Const Other: HE IS GROSSLY OBESE, WITH A ROUND FACE, NARROW OROPHARYNX, MALLAMPATI CLASS 4 NECK CIRCUMFERENCE 18 IN' General: comfortable, no acute distress, alert and awake Orientation/consciousness: patient oriented x3 HEENT Head: Yes normal to inspection General nose exam: No nasal polyps present, No nasal discharge present and Abnormal mucous membranes and turbinates present (NASAL TURBINATES ARE HYPERTROPHIC) Face and sinus: Yes sinuses nontender Mouth: oropharynx normal Throat: Yes posterior oropharynx normal Eyes General: appearance normal, both eyes and all related structures Neck Neck: Yes normal visual inspection, Yes no lymphadenopathy, Yes trachea midline, Yes no JVD and Yes other (Neck circumference 18 in, a golf ball sized lipoma on left side of the neck) Thyroid: Thyroid normal Chest Chest palpation & inspection: normal inspection of the chest, normal palpation of entire chest wall and no tenderness Resp Other: Percussion note resonant, breath sounds are distant with prolonged expiratory phase. No wheezes or creps. are herad . Cardio Palpation: PMI not normal (Not palpable.) Rate: regular rate Rhythm: regular rhythm Heart sounds: no gallops and no murmurs GI Palpation (GI): Soft to palpation, nontender, No hepatosplenomegaly present, no masses and Other GI palpation findings present (Abdomen is obese and protuberant) Auscultation: normal bowel sounds Back/Spine/Pelvis Thoracic/Lumbar Spine: thoracic and lumbar spine normal to inspection Skin General skin exam: no rashes or lesions noted Neuro General: patient oriented x3 and no focal motor deficits Cranial nerves: Yes CN's II-XII intact bilaterally Extrem General: Yes normal to inspection, Yes no clubbing, cyanosis or edema and Yes no calf tenderness Psych Appearance: grossly normal and well kempt Speech and movement: Normal speech and movement present Assessment & Plan Assessment & Plan (1) Allergic rhinitis: Comment: IT HAS BEEN A CHRONIC PROBLEM. HE PROBABLY HAS MULTIPLE ENVIRONMENTAL ALLERGIES. Code(s): J30.9 - Allergic rhinitis, unspecified Category: Medical Plan: CONTINUE USING MONTELUKAST 10 MG DAILY , FLONASE 2 SPRAY EACH NOSTRIL DAILY, AND CETIRIZINE 10 MG ONCE A DAY P.R.N. (2) COPD (chronic obstructive pulmonary disease): Comment: CLINICALLY HAS MODERATELY SEVERE OBSTRUCTIVE AIRWAY DISORDER. HE IS DOING FAIRLY WELL ON HIS CURRENT MEDICAL REGIMEN. DENIES SMOKING. Code(s): J44.9 - Chronic obstructive pulmonary disease, unspecified Category: Medical Plan: SYMBICORT 160-4.52 PUFFS B.I.D. ALBUTEROL HFA 2 PUFFS Q 6 HOURS P.R.N. (3) LUCA (obstructive sleep apnea): Comment: Longstanding history of obstructive sleep apnea, has remained non compliant most of the times and his CPAP device was taken away due to noncompliance. Claims that he has some difficulty in sleeping at night. Code(s): G47.33 - Obstructive sleep apnea (adult) (pediatric) Category: Medical Plan: ADVISE THAT HE SHOULD LOSE SOME MORE WEIGHT AND TRY TO SLEEP IN LATERAL POSITION Coding Level of Care Code Est Pt Level 4 (82105) Diagnoses Allergic rhinitis J30.9 COPD (chronic obstructive pulmonary disease) J44.9 LUCA (obstructive sleep apnea) G47.33
[2024-05-15 14:29] VITALS: BP 122/74; PULSE 85; O2SAT 98; BMI 33.4
== END 2024-05-15 14:44 | disposition home or self-care (01) ==
PROVIDERS: PCP Family Medicine; Visit Provider Internal Medicine
DX: J30.9 Allergic rhinitis, unspecified (principal); J44.9 Chronic obstructive pulmonary disease, unspecified; G47.33 Obstructive sleep apnea (adult) (pediatric)
CPT/HCPCS: 99214

== ENCOUNTER → 2024-05-15 14:05 | Outpatient (BNVA) | payer OTHER, SELFPAY | PROVIDERS: PCP Family Medicine; Visit Provider Internal Medicine | DX: J44.9 Chronic obstructive pulmonary disease, unspecified (principal); J30.9 Allergic rhinitis, unspecified; G47.33 Obstructive sleep apnea (adult) (pediatric); E66.09 Other obesity due to excess calories; Z68.33 Body mass index [BMI] 33.0-33.9, adult | CPT/HCPCS: 99212 ==

== ENCOUNTER 2024-05-18 15:34 | Outpatient (AMB) | payer OTHER, SELFPAY ==
--- NOTE | 2024-05-18 15:54 | A.OFFVIS_ITS ---
Intake Visit Reasons: TURP- follow up Intake Note: Patient Is Present for TURPT Follow up Urology Med: Finasteride Antibiotic Allergy: None Blood Thinner: Aspirin Urodynamic Performed: 03/31/2024 Last PVR: 61 Todays PVR:85 Cad Programmer Required: Yes Cad Programmer Language: Motor Scooter Repairer Services: Cad Programmer Present Allergies No Known Allergies Allergy (Verified 05/15/24 14:46) Medication List - Last Reconciled 05/18/24 by Narda Hernandez MD acetaminophen ER 650 mg PO TID PRN albuterol sulfate 90 mcg/actuation (Ventolin HFA) 2 puffs inhalation Q4-6H PRN ascorbic acid (vitamin C) (Vitamin C) 500 mg PO DAILY aspirin 1 tab PO DAILY atorvastatin 40 mg PO DAILY budesonide-formoterol 160-4.5 mcg/actuation (Symbicort) 2 puffs inhalation BID bupropion HCl XL 300 mg PO DAILY cetirizine 10 mg PO DAILY cholecalciferol (vitamin D3) (Vitamin D3) 50 mcg PO DAILY clonidine HCl 0.2 mg PO BEDTIME docusate sodium 100 mg PO BID doxycycline hyclate 100 mg PO BID 7 days duloxetine 120 mg PO DAILY ferrous sulfate (FeroSul) 325 mg PO BID finasteride (Proscar) 5 mg PO DAILY 90 days furosemide 40 mg PO DAILY gabapentin 100 mg PO DAILY hydralazine 100 mg PO TID isosorbide mononitrate ER 60 mg PO DAILY levothyroxine 75 mcg PO DAILY@0600 meclizine 25 mg PO TID metformin 1 tab PO TIDWMEAL metoprolol succinate ER 200 mg PO DAILY montelukast 10 mg PO BEDTIME clcqpwnk-gct-GA-lycopen-lutein 0.4 mg-300 mcg- 250 mcg (Cerovite Senior) 1 tab PO DAILY nitroglycerin 0.4 mg sublingual NEEDED PRN polyethylene glycol 3350 17 grams PO DAILY quetiapine 100 mg BEDTIME temazepam 30 mg PO BEDTIME PRN tramadol 50 mg PO DAILY PRN trazodone 150 mg PO BEDTIME PRN triamcinolone acetonide 0.1% 1 appl topical DAILY HPI Comments Details: 05/18/24--S/P Turp, has hematuria, no clots. c/o's dysuria. Discussed increase water intake, will prescribe doxycline. Review of chart: 05/10/24--s/p TURP-05/02/24 for Urinary retention due to obstructive prostate. Path-prostate chips-benign. He states urine is [place] in color , no burning with urination, urine flow is good. He states his is not taking the proscar or tamsulosin and has resumed aspirin. I want him to hold on aspirin until urine is clear, increase his water, and resume proscar. 03/31/24--Here for urodynamics. CMG parameters detailed below. Interpretation: Complex uroflow was not obtained, patient presents with nathan catheter. During the filling phase there was normal sensation, bladder capacity was within normal limits, the patient felt that he was at capacity at 303 mL. During the voiding phase the patient was unable to void and had max detrusor pressures of 100 cm H20. A nathan was replaced and 325 mL was drained from the bladder. EMG- Appropriate changes in the waveforms were noted through out the study. There was a decrease in the EMG activity during the voiding c/w normal function of the pelvic floor. I have discussed treatment plan - TURP, discussed risks/benefits to include but not limited to infection, bleeding, need for other surgical procedures. Will request medical clearance, will place an abx suppressive therapy bactrim DS daily until surgery. 03/03/24--Failed multiple voiding trials. Will schedule urodynamics. tile setter apprentice used. 01/26/2024--here for cystoscopy. Nathan removed. Cystoscopy findings: moderate trabeculations, mild inflammatory changes consistent with cystitis, there was sediment in the bladder which made visualization suboptimal, no suspicious les ions seen. Pt does not want nathan replaced. Will empiracally treat with bactrim. cont tamsulosin, proscar. Pt to return for NELDA. 12/16/23--Emory is a 73-year-old male who was initially evaluated inpatient at [facility] [place]. He presented on 11/16/2023 to the emergency room with complaints of not being able to urinate. Urology was consulted due to difficult catheterization and then was asked to re-evaluate due to gross hematuria. CT imaging 11/17/2023 noted heterogeneous material in the bladder may represent clot, mild dilatation bilaterally of renal system to the level of the bladder no renal calcifications noted-no renal masses noted. The patient has a [address] He is on tamsulosin 0.4 mg daily. Plan is to remove catheter and he is to return by 14:00 if he is unable to void. I will empirically place him on Bactrim DS 1 tab twice a day and start Proscar 5 mg daily. Follow-up in 1 month for office cystoscopy. [facility] Medical History Sleep apnea Thyroid disease Depression LUCA (obstructive sleep apnea) Obesity (BMI 30-39.9) Lipoma of neck Coronary artery disease Chronic low back pain Asthma Hyperlipidemia BPH (benign prostatic hyperplasia) Diabetes Personal history of COVID-19 Hypertension Allergic rhinitis COPD (chronic obstructive pulmonary disease) Surgical History History of surgery of head Hx of shoulder surgery Hx of umbilical hernia repair History of surgery Hx of bilateral cataract extraction Hx of cardiac catheterization Hx of circumcision History of esophagogastroduodenoscopy (EGD) H/O colonoscopy Family History Mother No problems noted. Father No problems noted. Social History Household Members: None Housing: House Are you a primary long term care administrator to a significant other at home: No Do you presently have visiting nurse or other home services: Yes (MOVIE PROJECTIONIST) Alcohol intake: never Patient Tobacco Use Status: Never used Tobacco Advance Directives Date on File: 05/14/20 service: No Review of Systems Const All systems reviewed & are unremarkable except as noted in HPI and below Reports no additional complaints Eyes Reports no additional complaints ENT Reports no additional complaints Card Reports no additional complaints Resp Reports no additional complaints GI Reports no additional complaints Reports as per HPI Musc Reports no additional complaints Skin/Breast Reports system reviewed and no additional complaints, except as documented Neuro Reports no additional complaints Psych Reports no additional complaints Endo Reports no additional complaints Keegan/Lymph Reports no additional complaints Aller/Immun Reports no additional complaints Office Procedures Post Void Residual Post Residual Void Post Void Residual (PVR): 85 10277-Rubu Void Residual by ultrasound Results AMB Urinalysis, Automated UA Leukoctes 125 Jacinto/uL Last Edit by Brandie Scanlon, RMA on 05/18/24 16:06 UA Nitrite Negative Last Edit by Brandie Scanlon, RMA on 05/18/24 16:06 UA Urobilinogen 0.2 mg/dL Last Edit by Brandie Scanlon, RMA on 05/18/24 16:0 6 UA Protein 100 mg/dL Last Edit by Brandie Scanlon, RMA on 05/18/24 16:06 UA pH 6.0 Last Edit by Brandie Scanlon, RMA on 05/18/24 16:06 UA Blood 200 Nils/uL Last Edit by Brandie Scanlon, RMA on 05/18/24 16:06 UA Specific [place] 1.015 Last Edit by Brandie Scanlon, RMA on 05/18/24 16: 06 UA Ketone Negative Last Edit by Brandie Scanlon, RMA on 05/18/24 16:06 UA Bilirubin 0 mg/dL Last Edit by Brandie Scanlon, RMA on 05/18/24 16:06 UA Glucose 0 mg/dL Last Edit by Brandie Scanlon, RMA on 05/18/24 16:06 Results Reviewed Results Reviewed: Laboratory Last Values Urine pH (Auto) 6.0 05/18/24 15:58 Specific [place] (Auto) 1.015 05/18/24 15:58 Urine Protein (Auto) 100 mg/dL 05/18/24 15:58 Glucose (UA)(Auto) 0 mg/dL 05/18/24 15:58 Urine Ketones (Auto) Negative 05/18/24 15:58 Urine Blood (Auto) 200 Nils/uL 05/18/24 15:58 Urine Nitrite (Auto) Negative 05/18/24 15:58 Urine Bilirubin (Auto) 0 mg/dL 05/18/24 15:58 Urine Urobilinogen (Auto) 0.2 mg/dL 05/18/24 15:58 Leukocyte Esterase (Auto) 125 Jacinto/uL 05/18/24 15:58 Assessment & Plan Assessment & Plan (1) Hematuria: Code(s): R31.9 - Hematuria, unspecified Category: Medical (2) BPH (benign prostatic hyperplasia): Code(s): N40.0 - Benign prostatic hyperplasia without lower urinary tract symptoms Category: Medical (3) Status post recent transurethral resection of prostate: Code(s): Z98.890 - Other specified postprocedural states Category: Surgical Plan doxycycline bid for 7 days Orders: Orders AMB Urinalysis Automated 05/18/24 Z13.9 - Encounter for screening, unspecified AMB Post Void Residual by ultrasound 05/18/24 N40.0 - Benign prostatic hyperplasia without lower urinary tract symptoms Urine Culture 05/18/24 N39.0 - Urinary tract infection, site not specified Medications: New doxycycline hyclate 100 mg PO BID 14 tabs 0RF 7 days Patient Instructions: The patient had an opportunity to ask questions regarding treatment plan. The patient expressed understanding and agreement with the above treatment plan. The patient is aware they should contact our office by phone for worsening of their current condition or the appearance of new symptoms. Compliance is encouraged with any medications and followup testing that is ordered. It is a privilege to be allowed the opportunity to participate in the urologic care of your patient. If you have any questions or concerns regarding treatment for the above conditions please do not hesitate to contact me. The office telephone contact is [phone]. This note is constructed in part using voice recognition software. While every effort has been made to ensure accuracy automotive wholesale parts advisor errors may have been included. Yours sincerely, Narda Hernandez MD Coding Level of Care Code Global (78792) Diagnoses Hematuria R31.9 BPH (benign prostatic hyperplasia) N40.0 Status post recent transurethral resection of prostate Z98.890 CPT Codes Post Residual Void - PVR CPT Code: 82096-Xpak Void Residual by ultrasound ([id number])
== END 2024-05-18 16:15 | disposition home or self-care (01) ==
PROVIDERS: PCP Family Medicine; Visit Provider Urology
DX: R31.9 Hematuria, unspecified (principal); N40.0 Benign prostatic hyperplasia without lower urinary tract symptoms; Z98.890 Other specified postprocedural states
CPT/HCPCS: 99024

== ENCOUNTER 2024-05-18 15:34 | Outpatient (REF) | payer OTHER, SELFPAY | END 2024-05-18 15:35 | disposition home or self-care (01) | LOC: HO.LAB 15:34 | PROVIDERS: PCP Family Medicine; Visit Provider Urology | DX: N39.0 Urinary tract infection, site not specified (principal); R31.9 Hematuria, unspecified; Z98.890 Other specified postprocedural states | CPT/HCPCS: 51798; 81003; 87086; 99212 ==

== ENCOUNTER 2024-06-09 15:51 | Outpatient (AMB) | payer OTHER, SELFPAY ==
--- NOTE | 2024-06-09 15:54 | A.OFFVIS_ITS ---
Intake Visit Reasons: 4 week f/u Intake Note: Patient is Present for Follow Up Urology Med: Finasteride Antibiotic Allergy: None Blood Thinner: Aspirin Last PVR: 61ml Todays PVR: 0ml Last Urine Culture: 05/18/24 was treated with Doxycycline Patient reports he was unable to picker/puller the Doxycycline pt states the pharmacy did not have it ready Patient reports today that he is still having some pain when urinating Auto Mechanic Apprentice Required: Yes Auto Mechanic Apprentice Name: [id number] Information Interpreted: non-clinical & clinical Allergies No Known Allergies Allergy (Verified 05/15/24 14:46) HPI Comments Details: 06/09/24--Emory is a 74-year-old male who has been followed for urinary retention due to enlarged prostate. He had postoperative hematuria and was last seen on 05/18/2024. Today he states his urine is yellow and he is doing much better. Review of chart: 05/18/24--S/P Turp, has hematuria, no clots. c/o's dysuria. Discussed increase water intake, will prescribe doxycline. 05/10/24--s/p TURP-05/02/24 for Urinary retention due to obstructive prostate. Path-prostate chips-benign. He states urine is [place] in color , no burning with urination, urine flow is good. He states his is not taking the proscar or tamsulosin and has resumed aspirin. I want him to hold on aspirin until urine is clear, increase his water, and resume proscar. 03/31/24--Here for urodynamics. CMG parameters detailed below. Interpretation: Complex uroflow was not obtained, patient presents with nathan catheter. During the filling phase there was normal sensation, bladder capacity was within normal limits, the patient felt that he was at capacity at 303 mL. During the voiding phase the patient was unable to void and had max detrusor pressures of 100 cm H20. A nathan was replaced and 325 mL was drained from the bladder. EMG- Appropriate changes in the waveforms were noted through out the study. There was a decrease in the EMG activity during the voiding c/w normal function of the pelvic floor. I have discussed treatment plan - TURP, discussed risks/benefits to include but not limited to infection, bleeding, need for other surgical procedures. Will request medical clearance, will place an abx suppressive therapy bactrim DS daily until surgery. 03/03/24--Failed multiple voiding trials. Will schedule urodynamics. portable power tool repairer used. 01/26/2024--here for cystoscopy. Nathan removed. Cystoscopy findings: moderate trabeculations, mild inflammatory changes consistent with cystitis, there was sediment in the bladder which made visualization suboptimal, no suspicious lesions seen. Pt does not want nathan replaced. Will empiracally treat with bactrim. cont tamsulosin, proscar. Pt to return for NELDA. 12/16/23--Emory is a 73-year-old male who was initially evaluated inpatient at [facility] [place]. He presented on 11/16/2023 to the emergency room with complaints of not being able to urinate. Urology was consulted due to difficult catheterization and then was asked to re-evaluate due to gross hematuria. CT imaging 11/17/2023 noted heterogeneous material in the bladder may represent clot, mild dilatation bilaterally of renal system to the level of the bladder no renal calcifications noted-no renal masses noted. The patient has a [address] He is on tamsulosin 0.4 mg daily. Plan is to remove catheter and he is to return by 14:00 if he is unable to void. I will empirically place him on Bactrim DS 1 tab twice a day and start Proscar 5 mg daily. Follow-up in 1 month for office cystoscopy. [facility] Medical History Sleep apnea Thyroid disease Depression LUCA (obstructive sleep apnea) Obesity (BMI 30-39.9) Lipoma of neck Coronary artery disease Chronic low back pain Asthma Hyperlipidemia BPH (benign prostatic hyperplasia) Diabetes Personal history of COVID-19 Hypertension Allergic rhinitis COPD (chronic obstructive pulmonary disease) Surgical History History of surgery of head Hx of shoulder surgery Hx of umbilical hernia repair History of surgery Hx of bilateral cataract extraction Hx of cardiac catheterization Hx of circumcision History of esophagogastroduodenoscopy (EGD) H/O colonoscopy Family History Mother No problems noted. Father No problems noted. Social History Household Members: None Housing: House Are you a primary medicare compliance auditor to a significant other at home: No Do you presently have visiting nurse or other home services: Yes (INSTRUCTIONAL MANAGER) Alcohol intake: never Patient Tobacco Use Status: Never used Tobacco Advance Directives Date on File: 05/14/20 service: No Office Procedures Post Void Residual Post Residual Void Post Void Residual (PVR): 0 [id number]-Gfek Void Residual by ultrasound Results AMB Urinalysis, Automated UA Leukoctes 70 Jacinto/uL Last Edit by Brandie Scanlon A on 06/09/24 16:09 UA Nitrite Negative Last Edit by Brandie Scanlon A on 06/09/24 16:09 UA Urobilinogen 0.2 mg/dL Last Edit by Brandie Scanlon A on 06/09/24 16:0 9 UA Protein 15 mg/dL Last Edit by Brandie Scanlon A on 06/09/24 16:09 UA pH 5.5 Last Edit by Brandie Scanlon A on 06/09/24 16:09 UA Blood 10 Nils/uL Last Edit by Brandie Scanlon A on 06/09/24 16:09 UA Specific [place] 1.015 Last Edit by Brandie Scanlon A on 06/09/24 16: 09 UA Ketone Negative Last Edit by Brandie Scanlon A on 06/09/24 16:09 UA Bilirubin 0 mg/dL Last Edit by Brandie Scanlon A on 06/09/24 16:09 UA Glucose 0 mg/dL Last Edit by Brandie Scanlon [facility] on 06/09/24 16:09 Results Reviewed Results Reviewed: Laboratory Last Values Urine pH (Auto) 5.5 06/09/24 16:08 Specific [place] (Auto) 1.015 06/09/24 16:08 Urine Protein (Auto) 15 mg/dL 06/09/24 16:08 Glucose (UA)(Auto) 0 mg/dL 06/09/24 16:08 Urine Ketones (Auto) Negative 06/09/24 16:08 Urine Blood (Auto) 10 Nils/uL 06/09/24 16:08 Urine Nitrite (Auto) Negative 06/09/24 16:08 Urine Bilirubin (Auto) 0 mg/dL 06/09/24 16:08 Urine Urobilinogen (Auto) 0.2 mg/dL 06/09/24 16:08 Leukocyte Esterase (Auto) 70 Jacinto/uL 06/09/24 16:08 Assessment & Plan Assessment & Plan (1) BPH (benign prostatic hyperplasia): Code(s): N40.0 - Benign prostatic hyperplasia without lower urinary tract symptoms Category: Medical (2) Status post recent transurethral resection of prostate: Code(s): Z98.890 - Other specified postprocedural states Category: Surgical Plan Follow-up in 4 months Orders: Orders AMB Post Void Residual by ultrasound 06/09/24 N40.0 - Benign prostatic hyperplasia without lower urinary tract symptoms AMB Urinalysis Automated 06/09/24 Z13.9 - Encounter for screening, unspecified, N40.0 - Benign prostatic hyperplasia without lower urinary tract symptoms Patient Instructions: The patient had an opportunity to ask questions regarding treatment plan. The patient expressed understanding and agreement with the above treatment plan. The patient is aware they should contact our office by phone for worsening of their current condition or the appearance of new symptoms. Compliance is encouraged with any medications and followup testing that is ordered. It is a privilege to be allowed the opportunity to participate in the urologic care of your patient. If you have any questions or concerns regarding treatment for the above conditions please do not hesitate to contact me. The office telephone contact is [phone]. This note is constructed in part using voice recognition software. While every effort has been made to ensure accuracy shoeshiner errors may have been included. Yours sincerely, Narda Hernandez MD Coding Level of Care Code Global (12874) Diagnoses BPH (benign prostatic hyperplasia) N40.0 Status post recent transurethral resection of prostate Z98.890 CPT Codes Post Residual Void - PVR CPT Code: 13531-Eweq Void Residual by ultrasound ([id number])
== END 2024-06-09 16:26 | disposition home or self-care (01) ==
PROVIDERS: PCP Family Medicine; Visit Provider Urology
DX: N40.0 Benign prostatic hyperplasia without lower urinary tract symptoms (principal); Z98.890 Other specified postprocedural states
CPT/HCPCS: 99024

== ENCOUNTER → 2024-06-09 15:51 | Outpatient (BNVA) | payer OTHER, SELFPAY | PROVIDERS: PCP Family Medicine; Visit Provider Urology | DX: N40.0 Benign prostatic hyperplasia without lower urinary tract symptoms (principal); Z98.890 Other specified postprocedural states | CPT/HCPCS: 51798; 81003; 99212 ==

== ENCOUNTER 2024-07-27 13:53 | Outpatient (AMB) | payer OTHER, SELFPAY ==
--- NOTE | 2024-07-27 14:17 | MHC.OFFVIS ---
Intake Visit Reasons: 10 wk follow up Intake Note: Patient is present for 10W F/U Urology Medication:FINASTERIDE Antibiotic Allergy:NONE Blood Thinner:ASPIRIN Level Vial Inspector Required: No Allergies No Known Allergies Allergy (Verified 07/27/24 14:18) HPI Comments Details: 07/27/2024Ramírez is a 74-year-old male who is followed for BPH, status post TURP for urinary retention. The patient is here today and states his urination is fine but he is having vertigo. He states he tried getting in touch with his PCP is not able to get an appointment. In review of the chart his vertigo is chronic he is on meclizine. Denies headache. [facility] Medical History Sleep apnea Thyroid disease Depression LUCA (obstructive sleep apnea) Obesity (BMI 30-39.9) Lipoma of neck Coronary artery disease Chronic low back pain Asthma Hyperlipidemia BPH (benign prostatic hyperplasia) Diabetes Personal history of COVID-19 Hypertension Allergic rhinitis COPD (chronic obstructive pulmonary disease) Surgical History History of surgery of head Hx of shoulder surgery Hx of umbilical hernia repair History of surgery Hx of bilateral cataract extraction Hx of cardiac catheterization Hx of circumcision History of esophagogastroduodenoscopy (EGD) H/O colonoscopy Family History Mother No problems noted. Father No problems noted. Social History Household Members: None Housing: House Are you a primary health and social care teacher to a significant other at home: No Do you presently have visiting nurse or other home services: Yes (FINISHING PAN OPERATOR) Alcohol intake: never Patient Tobacco Use Status: Never used Tobacco Advance Directives Date on File: 05/14/20 service: No Review of Systems Const All systems reviewed & are unremarkable except as noted in HPI and below Reports no additional complaints Eyes Reports no additional complaints ENT Reports no additional complaints Card Reports no additional complaints Resp Reports no additional complaints GI Reports no additional complaints Reports as per HPI Musc Reports no additional complaints Skin/Breast Reports system reviewed and no additional complaints, except as documented Neuro Reports no additional complaints Psych Reports no additional complaints Endo Reports no additional complaints Keegan/Lymph Reports no additional complaints Aller/Immun Reports no additional complaints Results AMB Urinalysis, Automated UA Leukoctes 125 Jacinto/uL Last Edit by CELSO March on 07/27/24 14:26 UA Nitrite Negative Last Edit by Deana Acuña [facility] on 07/27/24 14:26 UA Urobilinogen 0.2 mg/dL Last Edit by Deana Acuña [facility] on 07/27/24 14:26 UA Protein 15 mg/dL Last Edit by Deana Acuña [facility] on 07/27/24 14:26 UA pH 5.5 Last Edit by Deana Acuña [facility] on 07/27/24 14:26 UA Blood 0 Nils/uL Last Edit by Deana Acuña [facility] on 07/27/24 14:26 UA Specific [place] 1.020 Last Edit by Deana Acuña [facility] on 07/27/24 14:26 UA Ketone Negative Last Edit by Deana Acuña [facility] on 07/27/24 14:26 UA Bilirubin 0 mg/dL Last Edit by Deana Acuña [facility] on 07/27/24 14:26 UA Glucose 0 mg/dL Last Edit by Deana Acuña [facility] on 07/27/24 14:26 Results Reviewed Results Reviewed: Laboratory Last Values Urine pH (Auto) 5.5 07/27/24 14:26 Specific [place] (Auto) 1.020 07/27/24 14:26 Urine Protein (Auto) 15 mg/dL 07/27/24 14:26 Glucose (UA)(Auto) 0 mg/dL 07/27/24 14:26 Urine Ketones (Auto) Negative 07/27/24 14:26 Urine Blood (Auto) 0 Nils/uL 07/27/24 14:26 Urine Nitrite (Auto) Negative 07/27/24 14:26 Urine Bilirubin (Auto) 0 mg/dL 07/27/24 14:26 Urine Urobilinogen (Auto) 0.2 mg/dL 07/27/24 14:26 Leukocyte Esterase (Auto) 125 Jacinto/uL 07/27/24 14:26 Assessment & Plan Assessment & Plan (1) BPH loc w urin obs/LUTS: Code(s): N40.1 - Benign prostatic hyperplasia with lower urinary tract symptoms Category: Medical (2) Vertigo: Code(s): R42 - Dizziness and giddiness Category: Medical Plan With help of science interpreter the patient will go to the [facility] urgent care. Orders: Orders AMB Urinalysis Automated Today Z13.9 - Encounter for screening, unspecified Patient Instructions: The patient had an opportunity to ask questions regarding treatment plan. The patient expressed understanding and agreement with the above treatment plan. The patient is aware they should contact our office by phone for worsening of their current condition or the appearance of new symptoms. Compliance is encouraged with any medications and followup testing that is ordered. It is a privilege to be allowed the opportunity to participate in the urologic care of your patient. If you have any questions or concerns regarding treatment for the above conditions please do not hesitate to contact me. The office telephone contact is [phone]. This note is constructed in part using voice recognition software. While every effort has been made to ensure accuracy hr payroll coordinator errors may have been included. Yours sincerely, Narda Hernandez MD Coding Level of Care Code Est Pt Level 3 (66698) Diagnoses BPH loc w urin obs/LUTS N40.1 Vertigo R42
--- OUTSIDE RECORDS SUMMARY | 2024-07-27 15:14 | XMS_ITS ---
Author Organization [facility] Address [address] [place] [address] Care Team Providers Care Environmental Construction Engineer Name Role Phone Brandie Evangelista M.D. Primary Care Provider Dennys Arellano Unavailable [phone] ALLERGIES No Known Allergies REASON FOR VISIT Patient presents today for a colon recall MEDICATIONS Medication SIG (Take, Route, Frequency, Duration) Notes Start Date End Date Status Temazepam 30 MG 1 capsule at bedtime as needed Orally Once a day Active QUEtiapine Fumarate 200 MG Oral for 28 Active Atorvastatin Calcium 40 MG Oral for 28 Active Tamsulosin HCl 0.4 MG Oral for 28 Active Docusate Sodium 100 MG Oral for 28 Active Cetirizine HCl 10 MG Oral for 28 Active Cerovite Senior - Oral for 28 Active Gabapentin 100 MG Oral for 28 Active Symbicort 160-4.5 MCG/ACT 2 puffs Inhala tion Twice a day Active Metoprolol Succinate ER 100 MG 1 tablet Orally Once a day Active Acetaminophen ER 650 MG 1 tablets as nee ded Orally every 8 hrs/prn Active traZODone HCl 150 MG 1 tablet at bedtime as needed Orally Once a day Active DULoxetine HCl 60 MG 2 capsule Orally On ce a day Active Spiriva HandiHaler 18 MCG 1 capsule Inha lation Once a day Active Meclizine HCl 25 MG 1 tablet as needed Orally TID Active Isosorbide Mononitrate ER 60 MG Oral for 28 Active Triamcinolone Acetonide 0.1 % External for 15 Active Aspirin Low Dose 81 MG Oral for 28 Active Polyethylene Glycol 3350 17 GM/SCOOP Oral for 30 Active Ventolin HFA 108 (90 Base) MCG/ACT 2 puffs as needed Inhalation every 4-6 hrs/prn Active metFORMIN HCl 500 MG 1 tablet with a bhavin l Orally three times a day Active Vitamin D3 Super Strength 2000 UNIT 1 tablet Orally Once a day Active Levothyroxine Sodium 75 MCG 1 tablet on an empty stomach in the morning Orally Once a day Active traMADol HCl 50 MG 1 tablet as needed Orally Once a day Active Fluticasone Propionate 50 MCG/ACT Nasal for 30 Active FeroSul 325 (65 Fe) MG Oral for 28 Active Albuterol Sulfate (2.5 MG/3ML) 0.083% Inhalation for 7 Active Nitroglycerin 0.4 MG Sublingual for 30 Active Vitamin D3 50 MCG (2000 UT) Oral for 28 Active MiraLax (colon prep) 17 GM/SCOOP 1 238Gm bottle mixed with Gatorade or Crystal Light Orally begin at 5:00 p.m. the day before the procedure for 1 day 03/17/2023 Active hydrALAZINE HCl 100 MG Oral for 28 Active Montelukast Sodium 10 MG Oral for 28 Active Furosemide 40 MG Oral for 28 A ctive Dulcolax (colon prep) 5 MG take at 3:00 p.m and 7:00p.m. Orally two tablets twice a day for one day for 1 day 03/17/2023 Active Vitamin C 250 MG Oral for 28 A ctive cloNIDine HCl 0.2 MG Oral for 28 Active buPROPion HCl ER (XL) 300 MG Oral for 28 Active IMMUNIZATIONS Vaccine Route Administration Date Status Comme nts Influenza Unknown 07/12/2024 Refused PROBLEMS Problem Type ICD Code Onset Dates Problem Status W/U Status Risk SNOMED Code Notes Problem Encounter for other preprocedural examination (Z01.818) Active confirmed Pre-procedure evaluation check (201027431) Problem Chronic GERD (K21.9) Active confirmed Gastroesophagea l reflux disease (disorder) (972893228) Problem Personal history of adenomatous and serrated colon polyps (Z86.0101) Active confirmed VITAL SIGNS BMI 34.31 kg/m2 07/12/2024 Blood pressure systolic 000 mm Hg 07/12/20 24 Blood pressure diastolic 00 mm Hg 024 Height 68.5 in 07/12/2024 Temperature 98.6 degrees Fahrenheit 07/12/20 24 Weight 229 lbs 07/12/2024 Encounters Encounter Location Date Provider Diagnosis [facility] [address] [place] [address] 07/12/2024 Dennys Kimbrough History of adenomato us polyp of colon Z86.010 ; Encounter for other preprocedural examination Z01.818 ; Encounter for screening for malignant neoplasm of colon Z12.11 ; Long-term use of aspirin therapy Z79.82 and Chronic GERD K21.9 ASSESSMENTS Encounter Date Diagnosis Assessment Notes Treatment Notes Treatment Clinical Notes 07/12/2024 History of adenomatous polyp of colon (ICD-10 - Z86.010) Do not take Metformin the night before nor on the morning of the colonoscopy Do not take aspirin onnthe morning of the colonoscopy Stop Iron for 1 week before the colonoscopy Do not take the Furosemide the day before or on the day of the colonoscopy 07/12/2024 Encounter for other preprocedural examination (ICD-10 - Z01.818) 07/12/2024 Encounter for screening for malignant neoplasm of colon (ICD-10 - Z12.11) 07/12/2024 Long-term use of aspirin therapy (ICD-10 - Z79.82) 07/12/2024 Chronic GERD (ICD-10 - K21.9) PLAN OF TREATMENT Treatment Notes Assessment Notes History of adenomatous polyp of colon Do not take Metformin the night before nor on the morning of the colonoscopy Do not take aspirin onnthe morning of the colonoscopy Stop Iron for 1 week before the colonoscopy Do not take the Furosemide the day before or on the day of the colonoscopy Future Test Test Name Order Date COLONOSCOPY 07/12/2024 Next Appt Details Follow Up: prn, Reason: Provider Name:Dennys Gunter Luis E , 10/18/2024 11:20:00 AM, [address] [place] [address], [phone], Progress Notes * Examination Category Sub-Category Detail Notes General Examination GENERAL APPEARANCE: pleasant , well nourished, well developed, in no acute distress EYES: sclera non-icteric NECK/THYROID: no cervical lymphade nopathy, neck supple HEART: S1, S2 normal LUNGS: clear to auscultatio n bilaterally ABDOMEN: normal bowel sounds, no guarding or rigidity, no hepatosplenomegaly, no masses palpable, soft, nontender, nondistended. NEUROLOGIC: alert and oriented SKIN: nonjaundiced, no spi lambert angiomata. EXTREMITIES: no edema ORAL CAVITY: mucosa moist
--- OUTSIDE RECORDS SUMMARY | 2024-07-27 15:14 | XMS_ITS | Patient Health Record ---
Author Organization [facility] Address [address] [place] [address] Care Team Providers Care Corporate Banking Officer Name Role Phone Brandie Evangelista M.D. Primary Care Provider Kiara annabellelisa Kimbrough Dennys Unavailable [phone] ALLERGIES No Known Allergies RESULTS Component Value Reference Range Notes Glucose, Whole Blood Reviewed date:10/04/2023 10:26:37 PM Interpretation: Performing Lab:[facility], [address] [place] [address] Notes/Report: Glucose, Whole Blood 194 60-115 mg/dL METER # : [id number] REASON FOR REFERRAL No Information MEDICATIONS Medication SIG (Take, Route, Frequency, Duration) Notes Start Date End Date Status metFORMIN HCl 500 MG 1 tablet with [...] HCl 0.4 MG Oral for 28 Active Isosorbide Mononitrate ER 60 MG Oral for 28 Active Docusate Sodium 100 MG Oral for 28 Active Triamcinolone Acetonide 0.1 % External for 15 Active Aspirin Low Dose 81 MG Oral for 28 Active Polyethylene Glycol 3350 17 GM/SCOOP Oral for 30 Active Ventolin HFA 108 (90 Base) MCG/ACT 2 puffs as needed Inhalation every 4-6 hrs/prn Active Cetirizine HCl 10 MG Oral for 28 Active Cerovite Senior - Oral for 28 Active Gabapentin 100 MG Oral for 28 Active Symbicort 160-4.5 MCG/ACT 2 puffs Inhala tion Twice a day Active Metoprolol Succinate ER 100 MG 1 tablet Orally Once a day Active Fluticasone Propionate 50 MCG/ACT Nasal for 30 Active Acetaminophen ER 650 MG 1 tablets as nee ded Orally every 8 hrs/prn Active FeroSul 325 (65 Fe) MG Oral for 28 Active traZODone HCl 150 MG 1 tablet at bedtime as needed Orally Once a day Active Albuterol Sulfate (2.5 MG/3ML) 0.083% Inhalation for 7 Active DULoxetine HCl 60 MG 2 capsule Orally On ce a day Active Nitroglycerin 0.4 MG Sublingual for 30 Active Spiriva HandiHaler 18 MCG 1 capsule Inha lation Once a day Active Vitamin D3 50 MCG (2000 UT) Oral for 28 Active Meclizine HCl 25 MG 1 tablet as needed Orally TID Active MiraLax (colon prep) 17 GM/SCOOP 1 238Gm bottle mixed with Gatorade or Crystal Light Orally begin at 5:00 p.m. the day before the procedure for 1 day 03/17/2023 Active Dulcolax (colon prep) 5 MG take at 3:00 p.m and 7:00p.m. Orally two tablets twice a day for one day for 1 day 03/17/2023 Active Vitamin C 250 MG Oral for 28 A ctive hydrALAZINE HCl 100 MG Oral for 28 Active Montelukast Sodium 10 MG Oral for 28 Active Furosemide 40 MG Oral for 28 A ctive cloNIDine HCl 0.2 MG Oral for 28 Active buPROPion HCl ER (XL) 300 MG Oral for 28 Active Temazepam 30 MG 1 capsule at bedtime as needed Orally Once a day Active IMMUNIZATIONS Vaccine Route Administration Date Status Comme nts Flu vaccine no Preserv 3 and > Unknown 06/09/2016 Admin istered Influenza Unknown 07/12/2024 Refused SOCIAL HISTORY Sex Assigned At : Social History Observation Description Sex Assigned At Unknown PROBLEMS Problem Type ICD Code Onset Dates Problem Status W/U Status Risk SNOMED Code Notes Problem Encounter for screening for malignant neoplasm of colon (Z12.11) Active confirmed 593294122 Problem History of adenomatous polyp of colon (Z86.010) Active confirmed 973725883 Problem Encounter for other preprocedural examination (Z01.818) Active confirmed Pre-procedure evaluation check (539405558) Problem Long-term use of aspirin therapy (Z79.82) Active confirmed 021729090 Problem Chronic GERD (K21.9) Active confirmed Gastroesophagea l reflux disease (disorder) (137675156) Problem Personal history of adenomatous and serrated colon polyps (Z86.0101) Active confirmed VITAL SIGNS Temperature 98.6 degrees Fahrenheit 07/12/2024 Blood pressure diastolic 00 mm Hg 07/12/2024 Height 68.5 in 07/12/2024 Blood pressure systolic 000 mm Hg 07/12/2024 Weight 229 lbs 07/12/2024 BMI 34.31 kg/m2 07/12/2024 Encounters Encounter Location Date Provider Diagnosis [facility] Out[facility] [address] [place], [place] [phone] 10/04/2023 Dennys Kimbrough [facility] Out[place] [address] [place], [place] [phone] 01/12/2024 Dennys Kimbrough [facility] [address] [place] [phone] 07/12/2024 Dennys Kimbrough History of adenomato us polyp of colon Z86.010 ; Encounter for other preprocedural examination Z01.818 ; Encounter for screening for malignant neoplasm of colon Z12.11 ; Long-term use of aspirin therapy Z79.82 and Chronic GERD K21.9 [facility] [address] [place] [phone] 10/17/2023 Dennys Kimbrough [facility] [address] [place] [phone] 01/10/2024 Dennys Kimbrough [facility] [address] [place] [phone] 01/11/2024 Dennys Kimbrough ASSESSMENTS Encounter Date Diagnosis Assessment Notes Treatment [...] GERD (ICD-10 - K21.9) PLAN OF TREATMENT Future Test Test Name Order Date COLONOSCOPY 04/13/2017 COLONOSCOPY 03/17/2023 COLONOSCOPY 07/12/2024 Next Appt Details Provider Name:Dennys Kimbrough , 10/18/2024 11:20:00 AM, [address] [place] [address] , [place], [place], [phone], Insurance Providers Payer Name Payer Address Payer Phone Subscriber Number Group Number Insured Name Patient Relationship to Insured Coverage Start Date Coverage End Date [facility] [address] Attn Claims [place] [id number] PAUL CONNELL Self - patient is the insured MEDICAL (GENERAL) HISTORY Medical History History ICD Code HTN GERD--EGD in 2009--small HH, no sig. esophagitis nor Scott's--Gastritis, but no H.pylori Asthma NIDDM Denies ID,CVA,renal disease Depression Hypothyroidism Hyperlipidemia Tubular adenomas removed in 2006 and 02/2012--also noted to have diverticulosis and internal hemorrhoids Sleep apnea--uses CPAP Describes a negative ETT at [facility] in 7 Negative colonoscopy in 05/2017 Surgical History Surgery Date(Month/Year) Shoulder surgery Skull surgery [facility] TURP 04/2024
--- OUTSIDE RECORDS SUMMARY | 2024-07-27 15:14 | XMS_ITS ---
Author Organization [facility] Address [address] [place] [address] Care Team Providers Care Supervisor Compressed Yeast Name Role Phone Brandie Evangelista M.D. Primary Care Provider Kiara vailable Dennys Kimbrough Unavailable [phone] REASON FOR VISIT screening,hx polyps Encounters Encounter Location Date Provider Diagnosis [facility] Outpatient [address] [place] [phone] 01/12/2024 Dennys Kimbrough PLAN OF TREATMENT Next Appt Details Provider Name:Dennys Kimbrough , 10/18/2024 11:20:00 AM, [address] [place] [address], [phone],
--- OUTSIDE RECORDS SUMMARY | 2024-07-27 15:14 | XMS_ITS | Data Portability ---
Author Organization [facility] [place] [facility] - [facility]ly [facility], later [facility] Address [address] [place] [id number] Care Team Providers Care Food And Beverage Operations Manager Name Role Phone BETSYERIKADANE Primary Care Provider Assessment Encounter Date Assessment Date Assessment LastModified by Organization Details LastModified Time 03/24/2023 03/24/2023 I provided real -time medical direction via phone for this encounter, and was available for additional phone based assistance as needed. I have reviewed and agree with the Assessment and Plan as documented by the Vice President Marketing & Development. Patient given the opportunity to ask questions. Medic spoke to the son via phone at my request and explained that med reconciliation and changing medications or removing medications that are prescribed for patient is beyond the purview of [facility] and this is something that needs to be done in conjunction with his PCP -I reached out to [facility] to email the clinical care leader regarding the need to do this with the PCP please ever. I advised if develops CP/severe SOB/turning blue/uncontrolled n/v/d or black/bloody emesis or stool/ AMS/ syncope/ hi fever to call 911- patient verbalized understanding of instructions to the medic Not available 03/24/2023 16:21:35 Plan of Treatment Reminders Order Date Submit Date Provider Last Modified By Organization Details Last Modified Time Details Appointments None recorded. Lab BMP, serum or plasma 2022 023 [email or web address] 0 [facility], [address] [place] [address], [phone], 13:44:16 Referral None recorded. Procedures None recorded. Surgeries None recorded. Imaging None recorded. Medication Orders sodium chloride 0.9 % intravenous solution 2022 023 [email or web address] 0 Not available 13:44:16 Patient TargetsNo targets recorded. Patient Instructions Encounter Date Encounter Id Patient Instructions Last Modified By Organization Details Last Modified Time 03/24/2023 [id number] orthostatic vitals* - see vs [email or web address] Not available 03/24/2023 13:44:16 Reason for Referral None Reported. Results Created Date Observation Date Name Description Value Unit Range Abnormal Flag Note LastModifiedBy Organization Detail LastModifiedTime 03/24/20 23 03/24/2023 BMP, serum or plasm a BUN 11 Not Available Main - [facility] [address], [address], 03/24/2023 13:22:56 03/24/20 23 03/24/2023 BMP, serum or plasm a Ca Ionize d calciu m 1.25 Not Available Main - [address], [address], 03/24/2023 13:22:56 03/24/20 23 03/24/2023 BMP, serum or plasm a CI- 100 Not Available Main - [facility] [address], [address], 03/24/2023 13:22:56 03/24/20 23 03/24/2023 BMP, serum or plasm a CRE 0.9 Not Available Main - [facility] [address], [address], 03/24/2023 13:22:56 03/24/20 23 03/24/2023 BMP, serum or plasm a GLU 231 Not Available Main - [facility] [address], [address], 03/24/2023 13:22:56 03/24/20 23 03/24/2023 BMP, serum or plasm a K+ 3.8 Not Available Main - [facility] [address], [address], 03/24/2023 13:22:56 03/24/20 23 03/24/2023 BMP, serum or plasm a Na+ 137 Not Available Main - [facility] [address], [address], 03/24/2023 13:22:56 03/24/20 23 03/24/2023 BMP, serum or plasm a tCO2 25 Not Available Main - Ins [address], [place], [address], 03/24/2023 13:22:56 Result Notes None recorded. Medical Equipment None Reported. Medications Name Sig Start Date Stop Date Status Note LastModified by Organization Details LastModified Time furosemide 40 mg tablet active Not Available Not Available Not Available atorvastatin 40 mg tablet active Not Available Not Available Not Available metformin 500 mg tablet active Not Available Not Available Not Available cetirizine 10 mg tablet active Not Available Not Available Not Available ketotifen 0.025 % (0.035 %) eye drops ADMINISTER 1 DROP INTO AFFECTED EYE(S) IN THE MORNING AND AT BEDTIME. active Not Available Not Available No t Available metoprolol succinate ER 200 mg tablet,exten ded release 24 hr active Not Available Not Available Not Available metoprolol succinate ER 100 mg tablet,exten ded release 24 hr active Not Available Not Available Not Available quetiapine 200 mg tablet TOME AIMEE TABLETA TODOS LOS D AL ACOSTARSE active Not Available Not Available No t Available aspirin 81 mg tablet,delay ed release active Not Available Not Available N ot Available tramadol 50 mg tablet TOME AIMEE TABLETA POR V A ORAL CADA SEIS HORAS CUANDO SEA NECESARIO PARA EL DOLOR active Not Available Not Available No t Available quetiapine 100 mg tablet active Not Available Not Available Not Available acetaminophe n ER 650 mg tablet,exten ded release active Not Available Not Available Not Available levothyroxin e 75 mcg tablet active Not Available Not Available Not Available isosorbide mononitrate ER 60 mg tablet,exten ded release 24 hr active Not Available Not Available Not Available clonidine HCl 0.2 mg tablet TOME AIMEE TABLETA TODOS LOS D FOR 30 DAYS active Not Available Not Available No t Available tamsulosin 0.4 mg capsule active Not Available Not Available Not Available temazepam 30 mg capsule TOME AIMEE C PSULA S LOS D AL ACOSTARSE active Not Available Not Available No t Available OneTouch Ultra Test strips USE TO TEST ONCE DAILY active Not Available Not Available N ot Available meclizine 25 mg tablet active Not Available Not Available No t Available ascorbic acid (vitamin C) 250 mg tablet active Not Available Not Available Not Available baclofen 10 mg tablet active Not Available Not Available No t Available hydralazine 100 mg tablet active Not Available Not Available Not Available trazodone 150 mg tablet TOME AIMEE TABLETA TODOS LOS D AL ACOSTARSE CUANDO SEA NECESARIO PARA DORMIR active Not Available Not Available Not Available triamcinolon e acetonide 0.1 % topical ointment active Not Available Not Available Not Available docusate sodium 100 mg capsule active Not Available Not Available N ot Available montelukast 10 mg tablet active Not Available Not Available Not Available alcohol swabs active Not Available Not Available Not Available gabapentin 100 mg capsule active Not Available Not Available Not Available sodium chloride 0.9 % intravenous solution Inject 1000 mL by intravenous route. 2022 active Not Available Not Available Not Avai lable ibuprofen 600 mg tablet TOME AIMEE TABLETA POR V A ORAL CADA SEIS HORAS CUANDO SEA NECESARIO PARA EL DOLOR active Not Available Not Available No t Available polyethylene glycol 3350 17 gram/dose oral powder active Not Available Not Available Not Available fluticasone propionate 50 mcg/actuatio n nasal spray,suspen cl active Not Available Not Available Not Available Ventolin HFA 90 mcg/actuatio n aerosol inhaler PLEASE SEE ATTACHED FOR DETAILED DIRECTIONS active Not Available Not Available N ot Available Laxative (bisacodyl) 5 mg tablet,delay ed release active Not Available Not Available N ot Available bupropion HCl XL 300 mg 24 hr tablet, extended release TOME AIMEE TABLETA TODOS LOS D EN LA MA INDERJIT active Not Available Not Available No t Available bupropion HCl XL 150 mg 24 hr tablet, extended release TAKE 1 TABLET BY MOUTH EVERY DAY IN THE MORNING active Not Available Not Available No t Available Spiriva with HandiHaler 18 mcg and inhalation capsules active Not Available Not Available Not Available duloxetine 60 mg capsule,huy yed release TOME AIMEE C PSULA TODOS LOS D active Not Available Not Available No t Available Symbicort 160 mcg-4.5 mcg/actuatio n HFA aerosol inhaler active Not Available Not Available Not Available FeroSul 325 mg (65 mg iron) tablet active Not Available Not Available Not Available cholecalcife rol (vitamin D3) 50 mcg (2,000 unit) capsule active Not Available Not Available Not Available blood pressure test kit-large cuff USE TO CHECK BLOOD PRESSURE DIRECTED active Not Available Not Available No t Available Cerovite Senior 0.4 mg-300 mcg-250 mcg tablet active Not Available Not Available Not Available OneTouch Ultra2 Meter USE TO TEST ONCE DAILY active Not Available Not Available N ot Available OneTouch Delica Plus Lancet 30 gauge USE TO TEST ONCE DAILY active Not Available Not Available N ot Available Vitals Date Recorded Oxygen saturation Oxygen saturation in Arterial blood by Pulse oximetry Body temperature Respiratory rate Heart rate Systolic blood pressure Diastolic blood pressure Provider Name and Address Organization Details Last Updated DateTime 3 96 % 96 % 98.5 [degF] 18 /min 75 /min 150 mm[Hg] 86 mm[Hg] Not Available [facility] - production 3 13:08:48 Social History None recorded. Functional Status None recorded. Mental Status None recorded. Family History Nothing Reported. Medical History No medical history recorded. Past Encounters Encounter ID Performer Location Encounter Start Date Encounter Closed Date Diagnosis/Indication Diagnosis SNOMED-CT Code Diagnosis ICD10 Code [id number] Merry Tyler MD Main - [facility] [address] [place] [phone] 03/24/2023 13:08:46 03/24/2023 23:58:29 Lightheadedness [id number] R42 Health Concerns Section Related Observation LastModified by Organization Detai ls LastModified Time None Recorded Concern Status LastModified by Organization Details LastModified Time None Recorded Advance Directives Directive None Recorded Payers Encounter Date Sequence Insurance Name Policy Number Policy Denson Covered Member ID Denson Member ID Guarantor Name 03/24/2023 1 [facility] - DOS ON OR AFTER 2022 - DUAL ELIGIBLE - CARE HOME OPTIONS AND ONE CARE (MEDICARE REPLACEMENT/ADV ANTAGE - HMO) Emory Cui [id number] Emory Cui Notes Date Note Type Note Provider Name and Address Organization Details Recorded Time 03/24/2023 text/html HPI: Family called with concerns in patient status. Feels that he is declining and that he is on too many medications. Initial report of dizziness though Son in home today reports patient at baseline slower with activities. No dizziness present today. No recent BS recorded. No shortness of breath or chest pain. Patient with underlying anxiety disorder and Son declined home visit or Triage call to patient at this time. Patient Brother in the home currently to visit. Emergent care symptoms reviewed with Son and Daughter who verbalized understanding. .................. .................. .................. .................. .................. .................. .................. ............... [facility] Nursing Assessment: Comments: [facility] RN did not require any additional information to process this visit. .................. .................. .................. .................. .................. .................. .................. ............... Vice President Marketing & Development Note From Magdy Drake: Per [facility]: Family called with concerns in patient status. Feels that he is declining and that he is on too many medications. Initial report of dizziness though Son in home today reports patient at baseline slower with activities. No dizziness present today. No recent BS recorded. No shortness of breath or chest pain. Patient with underlying anxiety disorder and Son declined home visit or Triage call to patient at this time. Patient Brother in the home currently to visit. Emergent care symptoms reviewed with Son and Daughter who verbalized understanding. Goals per CRC: Family consented to visit and review of patient status tomorrow in his home. No recent vital signs or BS to report. No acute concern per Son at time of call. No acute signs of illness. S: Arrived on scene to visit member for dizziness meet at door by ambulatory then moved to living area. Pt is caox4, in NAD, states yesterday he felt dizzy today states he feels fine and has no complaints. Vitals and assessment preformed. O: HEENT: Head Normocephalic/Atra umatic Eyes: PEERL Neck: supple no JVD, No Trach deviation Chest: LS clear and equal in all smith Abd: rotund Extremities: +ROM +CSM in all ext., lower bilat. extremities -edema +pedal pulses A: Vitals and assessment preformed found pt orthostatic, following called [facility] with report. P: [facility] Dr. Tyler was called and given report, Dr. Tyler ordered chem8 labs POC, and then once results are received will review with [facility]. Following chem8 Called Dr. Tyler with results of POC chem8 ordered 1 liter of normal saline to be given for dehydration and dizziness then following retake orthostatic bps and call with results. Also Dr. Tyler wants pt to make an appointment with PCP with son, son wants to reconcile pts medications which can be done with PCP. Red flags discussed [facility] clear. [facility] Lab Orders: BMP, serum or plasma: Performed .................. .................. .................. .................. .................. .................. .................. ............... Disposition: Fulfilled Merry Tyler MD [address] [facility],[address], [place], [address], [employer] 03/24/2023 16:21:59
--- OUTSIDE RECORDS SUMMARY | 2024-07-27 15:14 | XMS_ITS ---
Author Organization [facility] Address [address] [place] [address] Care Team Providers Care Bonding Equipment Operator Name Role Phone Brandie Evangelista M.D. Primary Care Provider Kiara vailable Dennys Kimbrough Unavailable [phone] REASON FOR VISIT cx procedure tomorrow Encounters Encounter Location Date Provider Diagnosis [facility] [address] [place] [address] 01/11/2024 Dennys Kimbrough PLAN OF TREATMENT Next Appt Details Provider Name:Dennys Kimbrough , 10/18/2024 11:20:00 AM, [address] [place] [address] , [place], [place], [phone],
--- OUTSIDE RECORDS SUMMARY | 2024-07-27 15:15 | XMS_ITS | Clinical Summary ---
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 [id number] [place] [id number] MEDICARE - [facility] - [place] [id number] Problems Condition Name Condition Details Condition Category Status Onset Date Resolution Date Last Treatment Date Treating Clinician Comments DEPRESSION, UNSPECIFIED Active 2018-07 0 00:00: 00 ESSENTIAL (PRIMARY) HYPERTENSION Active 07-26 00:00: 00 HESITANCY OF MICTURITION Active 414 00:00: 00 RETENTION OF URINE, UNSPECIFIED Active 4-20 00:00: 00 ACUTE CYSTITIS WITH HEMATURIA Active 414 00:00: 00 BENIGN PROSTATIC HYPERPLASIA WITH LOWER URINARY TRACT SYMP Active 827 00:00: 00 CHRONIC OBSTRUCTIVE PULMONARY DISEASE, UNSPECIFIED Active 07-26 00:00: 00 TYPE 2 DIABETES MELLITUS WITHOUT COMPLICATION S Active 07-26 00:00: 00 HYPOTHYROIDI SM, UNSPECIFIED Active 07-26 00:00: 00 HISTORY OF FALLING Active 07-26 00:00: 00 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 Ordering Clinician Indication Dosage Frequency Signature (SIG) Comments Components acetaminoph en 325 mg tablet 09-22 00:00: 00 08-30 23:59 :00 No [id number] 2 tablet EVERY 6 HOURS 2 tablet EVERY 6 HOURS (route: oral) Med Classific ation: Analgesic , Anti-infl ammatory or Antipyret ic aspirin 500 mg tablet,huy yed release 09-22 00:00: 00 08-30 23:59 :00 No [id number] 1 tablet DAILY 1 tablet DAILY (route: oral) Med Classific ation: Analgesic , Anti-infl ammatory or Antipyret ic atorvastati n 40 mg tablet 09-22 00:00: 00 Yes [id number] 1 tablet BEDTIME 1 tablet BEDTIME (route: oral) Med Classific ation: Cardiovas cular Therapy Agents Colace 100 mg capsule 09-22 00:00: 00 Yes [id number] 1 capsule 2 TIMES DAILY 1 capsule 2 TIMES DAILY (route: oral) Med Classific ation: Gastroint estinal Therapy Agents duloxetine 60 mg capsule,del ayed release 09-22 00:00: 00 08-30 23:59 :00 No [id number] 2 capsule BEDTIME 2 capsule BEDTIME (route: oral) Med Classific ation: Central Nervous System Agents ferrous sulfate 325 mg (65 mg iron) tablet 01-15 00:00: 00 Yes [id number] 1 tablet 2 TIMES DAILY 1 tablet 2 TIMES DAILY (route: oral) Med Classific ation: Electroly te Balance-N utritiona l Products finasteride 5 mg tablet 11-16 00:00: 00 Yes [id number] 1 tablet DAILY 1 tablet DAILY (route: oral) Med Classific ation: Genitouri nary Therapy tamsulosin 0.4 mg capsule 09-22 00:00: 00 Yes [id number] 1 capsule DAILY 1 capsule DAILY (route: oral) Med Classific ation: Genitouri nary Therapy furosemide 40 mg tablet 01-21 00:00: 00 Yes [id number] 1 tablet DAILY 1 tablet DAILY (route: oral) Med Classific ation: Cardiovas cular Therapy Agents gabapentin 100 mg capsule 01-21 00:00: 00 Yes [id number] 1 capsule BEDTIME 1 capsule BEDTIME (route: oral) Med Classific ation: Central Nervous System Agents ipratropium 0.5 mg-albutero l 3 mg (2.5 mg base)/3 mL nebulizatio n soln 01-15 00:00: 00 08-30 23:59 :00 No [id number] Per instruc tions EVERY 4 HOURS NEEDED Per instructio ns EVERY 4 HOURS NEEDED (route: inhalation ) Med Classific ation: Respirato ry Therapy Agents isosorbide mononitrate ER 60 mg tablet,exte nded release 24 hr 09-22 00:00: 00 10-29 23:59 :00 No [id number] 1 tablet DAILY 1 tablet DAILY (route: oral) Med Classific ation: Cardiovas cular Therapy Agents levothyroxi ne 75 mcg tablet 09-22 00:00: 00 Yes [id number] 1 tablet DAILY 1 tablet DAILY (route: oral) Med Classific ation: Endocrine lisinopril 30 mg tablet 01-19 00:00: 00 10-29 23:59 :00 No [id number] 1 tablet DAILY 1 tablet DAILY (route: oral) Med Classific ation: Cardiovas cular Therapy Agents meclizine 25 mg tablet 09-22 00:00: 00 08-30 23:59 :00 No [id number] 1 tablet 3 TIMES DAILY 1 tablet 3 TIMES DAILY (route: oral) Med Classific ation: Gastroint estinal Therapy Agents metformin 850 mg tablet 01-15 00:00: 00 02-17 23:59 :00 No [id number] 1 tablet 2 TIMES DAILY 1 tablet 2 TIMES DAILY (route: oral) Med Classific ation: Endocrine metoprolol succinate ER 100 mg tablet,exte nded release 24 hr 10-02 00:00: 00 10-29 23:59 :00 No [id number] 1 tablet DAILY 1 tablet DAILY (route: oral) Med Classific ation: Cardiovas cular Therapy Agents Multivitami n 50 Plus tablet 09-22 00:00: 00 08-30 23:59 :00 No [id number] 1 tablet Daily 1 tablet Daily (route: oral) Med Classific ation: Electroly te Balance-N utritiona l Products nitroglycer in 0.4 mg sublingual tablet 09-22 00:00: 00 Yes [id number] 1 tablet Every 5 min 1 tablet Every 5 min (route: sublingual ) Med Classific ation: Cardiovas cular Therapy Agents Proventil HFA 90 mcg/actuati on aerosol inhaler 09-22 00:00: 00 Yes [id number] 2 puff 4 TIMES DAILY 2 puff 4 TIMES DAILY (route: inhalation ) Med Classific ation: Respirato ry Therapy Agents Seroquel 100 mg tablet 09-22 00:00: 00 11-23 23:59 :00 No [id number] 1 tablet BEDTIME 1 tablet BEDTIME (route: oral) Med Classific ation: Central Nervous System Agents Spiriva with HandiHaler 18 mcg and inhalation capsules 09-22 00:00: 00 Yes [id number] 1 inhalat ion DAILY 1 inhalation DAILY (route: inhalation ) Med Classific ation: Respirato ry Therapy Agents Symbicort 160 mcg-4.5 mcg/actuati on HFA aerosol inhaler 09-22 00:00: 00 Yes [id number] 2 puff 2 TIMES DAILY 2 puff 2 TIMES DAILY (route: inhalation ) Med Classific ation: Respirato ry Therapy Agents Vitamin D3 50 mcg (2,000 unit) tablet 09-22 00:00: 00 Yes [id number] 1 tablet DAILY 1 tablet DAILY (route: oral) Med Classific ation: Electroly te Balance-N utritiona l Products Zyrtec 10 mg tablet 09-22 00:00: 00 Yes [id number] 1 tablet DAILY 1 tablet DAILY (route: oral) Med Classific ation: Respirato ry Therapy Agents ipratropium 0.5 mg-albutero l 3 mg (2.5 mg base)/3 mL nebulizatio n soln 09-22 00:00: 00 Yes [id number] Per instruc tions EVERY 4 HOURS Per instructio ns EVERY 4 HOURS (route: inhalation ) Med Classific ation: Respirato ry Therapy Agents metoprolol succinate ER 100 mg tablet,exte nded release 24 hr 09-22 00:00: 00 Yes [id number] 1 tablet BEDTIME 1 tablet BEDTIME (route: oral) Med Classific ation: Cardiovas cular Therapy Agents Multi Vitamin 9 mg iron/15 mL oral liquid 224 00:00: 00 08-30 23:59 :00 No [id number] Per instruc tions DAILY Per instructio ns DAILY (route: oral) Med Classific ation: Electroly te Balance-N utritiona l Products hydralazine 25 mg tablet 03-18 00:00: 00 08-05 23:59 :00 No [id number] 1 tablet 2 TIMES DAILY 1 tablet 2 TIMES DAILY (route: oral) Med Classific ation: Cardiovas cular Therapy Agents hydralazine 50 mg tablet 08-05 00:00: 00 10-29 23:59 :00 No [id number] 1.5 tablet 3 TIMES DAILY 1.5 tablet 3 TIMES DAILY (route: oral) Med Classific ation: Cardiovas cular Therapy Agents baclofen 10 mg tablet 10-29 00:00: 00 08-30 23:59 :00 No [id number] 1 tablet 3 TIMES DAILY 1 tablet 3 TIMES DAILY (route: oral) Med Classific ation: Locomotor System hydralazine 100 mg tablet 10-29 00:00: 00 08-30 23:59 :00 No [id number] 1 tablet 4 TIMES A WEEK 1 tablet 4 TIMES A WEEK (route: oral) Med Classific ation: Cardiovas cular Therapy Agents isosorbide mononitrate ER 60 mg tablet,exte nded release 24 hr 10-29 00:00: 00 Yes [id number] 1.5 tablet DAILY 1.5 tablet DAILY (route: oral) Med Classific ation: Cardiovas cular Therapy Agents lisinopril 10 mg tablet 10-29 00:00: 00 05-22 23:59 :00 No [id number] 1 tablet DAILY 1 tablet DAILY (route: oral) Med Classific ation: Cardiovas cular Therapy Agents montelukast 10 mg tablet 4-06 00:00: 00 Yes [id number] 1 tablet DAILY 1 tablet DAILY (route: oral) Med Classific ation: Respirato ry Therapy Agents temazepam 30 mg capsule 4-06 00:00: 00 08-31 23:59 :00 No [id number] 1 capsule BEDTIME 1 capsule BEDTIME (route: oral) Med Classific ation: Central Nervous System Agents trazodone 150 mg tablet 4-06 00:00: 00 11-23 23:59 :00 No [id number] 1 tablet BEDTIME 1 tablet BEDTIME (route: oral) Med Classific ation: Central Nervous System Agents Vitamin C 250 mg tablet 10-29 00:00: 00 Yes [id number] 1 tablet 2 TIMES DAILY 1 tablet 2 TIMES DAILY (route: oral) Med Classific ation: Electroly te Balance-N utritiona l Products metformin 850 mg tablet 7-26 00:00: 00 08-30 23:59 :00 No [id number] 1 tablet DAILY 1 tablet DAILY (route: oral) Med Classific ation: Endocrine Lasix 40 mg tablet 2-18 00:00: 00 09-19 23:59 :00 No 40 mg 2 TIMES DAILY 40 mg 2 TIMES DAILY (route: oral) Med Classific ation: Cardiovas cular Therapy Agents Topamax 25 mg tablet 2-23 00:00: 00 08-31 23:59 :00 No 25 mg BEDTIME 25 mg BEDTIME (route: oral) Med Classific ation: Central Nervous System Agents temazepam 30 mg capsule 3-09 00:00: 00 08-31 23:59 :00 No 30 mg BEDTIME 30 mg BEDTIME (route: oral) Med Classific ation: Central Nervous System Agents trazodone 150 mg tablet 3-09 00:00: 00 12-29 23:59 :00 No 150 mg BEDTIME 150 mg BEDTIME (route: oral) Med Classific ation: Central Nervous System Agents acetaminoph en ER 650 mg tablet,exte nded release 09-02 00:00: 00 Yes 1 tablet EVERY 8 HOURS 1 tablet EVERY 8 HOURS (route: oral) Med Classific ation: Analgesic , Anti-infl ammatory or Antipyret ic [place] 0.025 % (0.035 %) eye drops 09-02 00:00: 00 Yes 1 drops 2 TIMES DAILY 1 drops 2 TIMES DAILY (route: ophthalmic (eye)) Med Classific ation: Ophthalmi c Agents albuterol sulfate 2.5 mg/3 mL (0.083 %) solution for nebulizatio n 09-02 00:00: 00 Yes Per instruc tions EVERY 6 HOURS Per instructio ns EVERY 6 HOURS (route: inhalation ) Med Classific ation: Respirato ry Therapy Agents aspirin 81 mg tablet,huy yed release 09-02 00:00: 00 Yes 1 tablet DAILY 1 tablet DAILY (route: oral) Med Classific ation: Hematolog ical Agents baclofen 10 mg tablet 09-02 00:00: 00 Yes 1 tablet 3 TIMES DAILY 1 tablet 3 TIMES DAILY (route: oral) Med Classific ation: Locomotor System Centrum Silver 0.4 mg-300 mcg-250 mcg tablet 09-02 00:00: 00 Yes 1 tablet DAILY 1 tablet DAILY (route: oral) Med Classific ation: Electroly te Balance-N utritiona l Products duloxetine 60 mg capsule,del ayed release 09-02 00:00: 00 Yes 2 capsule BEDTIME 2 capsule BEDTIME (route: oral) Med Classific ation: Central Nervous System Agents Flonase Allergy Relief 50 mcg/actuati on nasal spray,suspe nsion 09-02 00:00: 00 Yes 2 spray DIRECTED 2 spray DIRECTED (route: nasal) Med Classific ation: Respirato ry Therapy Agents glucose 4 gram chewable tablet 09-02 00:00: 00 Yes 2-4 tablet NEEDED 2-4 tablet NEEDED (route: oral) Med Classific ation: Endocrine hydralazine 100 mg tablet 09-02 00:00: 00 Yes 1 tablet 3 TIMES DAILY 1 tablet 3 TIMES DAILY (route: oral) Med Classific ation: Cardiovas cular Therapy Agents meclizine 25 mg tablet 2- 00:00: 00 Yes 1 tablet 3 TIMES DAILY 1 tablet 3 TIMES DAILY (route: oral) Med Classific ation: Gastroint estinal Therapy Agents metformin 500 mg tablet - 00:00: 00 Yes 1 tablet 3 TIMES DAILY 1 tablet 3 TIMES DAILY (route: oral) Med Classific ation: Endocrine Miralax 17 gram/dose oral powder - 00:00: 00 Yes 17 gram NEEDED 17 gram NEEDED (route: oral) Med Classific ation: Gastroint estinal Therapy Agents omeprazole 40 mg capsule,del ayed release 09-01 00:00: 00 Yes 1 capsule DAILY 1 capsule DAILY (route: oral) Med Classific ation: Gastroint estinal Therapy Agents prazosin 5 mg capsule 09-01 00:00: 00 Yes 1 capsule DAILY 1 capsule DAILY (route: oral) Med Classific ation: Cardiovas cular Therapy Agents Tums E-X 300 mg (750 mg) chewable tablet 09-01 00:00: 00 Yes 1-2 tablet NEEDED 1-2 tablet NEEDED (route: oral) Med Classific ation: Gastroint estinal Therapy Agents Immunizations Ordered Immunization Name Filled Immunization Name Date Status Comments Refusal Reason INFLUENZA, TIV (INACTIVATED) 2018-06-08 00:00:00 Vital Signs Vital Name Observation Time Observation Value Commen ts Temperature 2024-07-27 11:02:00.000 97.3 [degF] Temperature 2024-07-20 11:15:00.000 97.8 [degF] Temperature 2024-07-13 11:08:00.000 97.7 [degF] Temperature 2024-07-06 11:17:00.000 97.3 [degF] Temperature 2024-06-29 10:56:00.000 97.5 [degF] Pulse 2024-07-27 11:02:00.000 79 /min Pulse 2024-07-20 11:15:00.000 88 /min Pulse 2024-07-13 11:08:00.000 88 /min Pulse 2024-07-06 11:17:00.000 69 /min Pulse 2024-06-29 10:56:00.000 70 /min O2 Saturation (%) 2024-07-27 11:02:00.000 97 % O2 Saturation (%) 2024-07-20 11:15:00.000 99 % O2 Saturation (%) 2024-07-13 11:08:00.000 98 % O2 Saturation (%) 2024-07-06 11:17:00.000 97 % O2 Saturation (%) 2024-06-29 10:56:00.000 97 % Respirations 2024-07-27 11:02:00.000 18 /min Respirations 2024-07-20 11:15:00.000 18 /min Respirations 2024-07-13 11:08:00.000 18 /min Respirations 2024-07-06 11:17:00.000 18 /min Respirations 2024-06-29 10:56:00.000 20 /min Systolic Blood Pressure 2024-07-27 11:02:00.000 140 mm [Hg] Systolic Blood Pressure 2024-07-20 11:15:00.000 150 mm [Hg] Systolic Blood Pressure 2024-07-13 11:08:00.000 150 mm [Hg] Systolic Blood Pressure 2024-07-06 11:17:00.000 160 mm [Hg] Systolic Blood Pressure 2024-06-29 10:56:00.000 150 mm [Hg] Diastolic Blood Pressure 2024-07-27 11:02:00.000 70 mm [Hg] Diastolic Blood Pressure 2024-07-20 11:15:00.000 78 mm [Hg] Diastolic Blood Pressure 2024-07-13 11:08:00.000 80 mm [Hg] Diastolic Blood Pressure 2024-07-06 11:17:00.000 90 mm [Hg] Diastolic Blood Pressure 2024-06-29 10:56:00.000 76 mm [Hg] Plan of Treatment Planned Activity Planned Date Details Comments Future Scheduled Test SKILLED NU RSE TO EVALUATE PATIENT, IDENTIFY PRIMARY AND CO-MORBID CONDITIONS CODED PER CODING GUIDELINES, AND DEVELOP PATIENT SPECIFIC PLAN OF CARE THAT INCLUDES PATIENT GOAL FOR HOME HEALTH. [code = SKILLED NURSE TO EVALUATE PATIENT, IDENTIFY PRIMARY AND CO-MORBID CONDITIONS CODED PER CODING GUIDELINES, AND DEVELOP PATIENT SPECIFIC PLAN OF CARE THAT INCLUDES PATIENT GOAL FOR HOME HEALTH.] Future Scheduled Test SKILLED NU RSE TO O/A OF PATIENTS MENTAL/BEHAVIORAL STATUS, ASSESS VITAL SIGNS NEEDED OR REQUESTED, ALLOW 2 PRNS FOR MEDICATION MANAGEMENT. [code = SKILLED NURSE TO O/A OF PATIENTS MENTAL/BEHAVIORAL STATUS, ASSESS VITAL SIGNS NEEDED OR REQUESTED, ALLOW 2 PRNS FOR MEDICATION MANAGEMENT.] Future Scheduled Test SKILLED NU RSE WILL MAINTAIN SITUATIONAL AWARENESS FOR SAFETY AND WILL NOTIFY CLINICAL EXPLOSIVES DETONATOR AND PHYSICIAN/PROVIDER WITH ANY CHANGE IN CONDITION. [code = SKILLED NURSE WILL MAINTAIN SITUATIONAL AWARENESS FOR SAFETY AND WILL NOTIFY CLINICAL EXPLOSIVES DETONATOR AND PHYSICIAN/PROVIDER WITH ANY CHANGE IN CONDITION.] Future Scheduled Test SKILLED NU RSE FOR O/A AND SKILLED TEACHING RELATED TO MANAGEMENT OF DEPRESSIVE SYMPTOMS AND/OR DEPRESSION. SN TO REPORT SIGNIFICANT CHANGE IN DEPRESSIVE SYMPTOMS TO CLINICAL PROVIDER FOR EARLY INTERVENTION. [code = SKILLED NURSE FOR O/A AND SKILLED TEACHING RELATED TO MANAGEMENT OF DEPRESSIVE SYMPTOMS AND/OR DEPRESSION. SN TO REPORT SIGNIFICANT CHANGE IN DEPRESSIVE SYMPTOMS TO CLINICAL PROVIDER FOR EARLY INTERVENTION.] Future Scheduled Test SKILLED NU RSE TO ASSESS PATIENTS PSYCHOSOCIAL STATUS TO IDENTIFY POTENTIAL ISSUES THAT MAY COMPLICATE THE PROVISION OF THE PLAN OF CARE INCLUDING THE PATIENTS ABILITY TO ACCESS COMMUNITY RESOURCES AND PSYCHOSOCIAL SUPPORT SERVICES. [code = SKILLED NURSE TO ASSESS PATIENTS PSYCHOSOCIAL STATUS TO IDENTIFY POTENTIAL ISSUES THAT MAY COMPLICATE THE PROVISION OF THE PLAN OF CARE INCLUDING THE PATIENTS ABILITY TO ACCESS COMMUNITY RESOURCES AND PSYCHOSOCIAL SUPPORT SERVICES.] Future Scheduled Test SKILLED NU RSE FOR O/A OF CLIENT'S SOCIAL ISOLATION AND PROVIDE ASSISTANCE TO CLIENT IN DEVELOPMENT OF PLANNED ACTIVITIES [code = SKILLED NURSE FOR O/A OF CLIENT'S SOCIAL ISOLATION AND PROVIDE ASSISTANCE TO CLIENT IN DEVELOPMENT OF PLANNED ACTIVITIES] Future Scheduled Test SKILLED NU RSE FOR O/A AND TEACHING OF DIABETIC MANAGEMENT INCLUDING BLOOD SUGAR MONITORING/USE OF GLUCOMETER, DIABETIC DIET, LOWER EXTREMITY SKIN INSPECTION, PROPER SKIN/FOOT CARE, AND SIGNS AND SYMPTOMS HYPO/HYPERGLYCEMIA TO REPORT. [code = SKILLED NURSE FOR O/A AND TEACHING OF DIABETIC MANAGEMENT INCLUDING BLOOD SUGAR MONITORING/USE OF GLUCOMETER, DIABETIC DIET, LOWER EXTREMITY SKIN INSPECTION, PROPER SKIN/FOOT CARE, AND SIGNS AND SYMPTOMS HYPO/HYPERGLYCEMIA TO REPORT.] Future Scheduled Test MEDICATION S WILL BE HELD AND STORED IN DISPENSING MACHINE [code = MEDICATIONS WILL BE HELD AND STORED IN DISPENSING MACHINE ] Future Scheduled Test SKILLED NU RSE TO CHANGE OUT PAST WEEKS MEDICATION BOARD WEEKLY WITH NEW ONE. [code = SKILLED NURSE TO CHANGE OUT PAST WEEKS MEDICATION BOARD WEEKLY WITH NEW ONE.] Goal 2019-01-17 Patient Goal - P ATIENT WOULD LIKE TO GET RELIEF FROM HIS CHRONIC DEPRESSION Goal 2018-11-17 Patient Goal - P ATIENT WOULD LIKE TO GET RELIEF FROM HIS CHRONIC DEPRESSION Goal 2019-03-21 Patient Goal - P ATIENCE GOAL FOR THIS PERIOD IS TO SPEND MORE TIME OUTDOORS, Goal 2019-05-16 Patient Goal - P ATIENCE GOAL FOR THIS PERIOD IS TO SPEND MORE TIME OUTDOORS, Goal 2019-07-18 Patient Goal - P ATIENCE GOAL FOR THIS PERIOD IS TO SPEND MORE TIME OUTDOORS, Goal 2019-09-13 Patient Goal - R ESOLVE URINARY STRUGGLES, DIVIDED URINE STREAM Goal 2019-11-13 Patient Goal - R ESOLVE URINARY STRUGGLES, DIVIDED URINE STREAM Goal 2020-01-15 Patient Goal - R ESOLVE URINARY STRUGGLES, DIVIDED URINE STREAM Goal 2020-03-11 Patient Goal - R ESOLVE URINARY STRUGGLES, DIVIDED URINE STREAM Goal 2020-05-13 Patient Goal - R ESOLVE URINARY STRUGGLES, DIVIDED URINE STREAM Goal 2020-07-12 Patient Goal - R ESOLVE URINARY STRUGGLES, DIVIDED URINE STREAM Goal 2020-09-09 Patient Goal - R ESOLVE URINARY STRUGGLES, DIVIDED URINE STREAM Goal 2020-11-07 Patient Goal - R ESOLVE URINARY STRUGGLES, DIVIDED URINE STREAM Goal 2021-01-06 Patient Goal - R ESOLVE URINARY STRUGGLES, DIVIDED URINE STREAM Goal 2021-03-10 Patient Goal - R ESOLVE URINARY STRUGGLES, DIVIDED URINE STREAM Goal 2021-05-05 Patient Goal - R ESOLVE URINARY STRUGGLES, DIVIDED URINE STREAM Goal 2021-07-04 Patient Goal - R ESOLVE URINARY STRUGGLES, DIVIDED URINE STREAM Goal 2021-09-03 Patient Goal - R ESOLVE URINARY STRUGGLES, DIVIDED URINE STREAM Goal 2021-11-05 Patient Goal - R ESOLVE MY URINARY STRUGGLES Goal 2021-12-31 Patient Goal - R ESOLVE MY URINARY STRUGGLES Goal 2022-03-05 Patient Goal - R ESOLVE MY URINARY STRUGGLES Goal 2022-05-04 Patient Goal - R ESOLVE MY URINARY STRUGGLES Goal 2022-06-29 Patient Goal - R ESOLVE MY URINARY STRUGGLES Goal 2022-08-31 Patient Goal - T O GET HEALTHY AND STAY THAT WAY Goal 2022-10-29 Patient Goal - T O GET HEALTHY AND STAY THAT WAY Goal 2022-12-30 Patient Goal - T O GET HEALTHY AND STAY THAT WAY Goal 2023-02-25 Patient Goal - T O GET HEALTHY AND STAY THAT WAY Goal 2023-04-29 Patient Goal - T O GET HEALTHY AND STAY THAT WAY Goal 2023-06-24 Patient Goal - T O GET HEALTHY AND STAY THAT WAY Goal 2023-08-26 Patient Goal - T O GET HEALTHY AND STAY THAT WAY Goal 2023-10-22 Patient Goal - T O GET HEALTHY AND STAY THAT WAY Goal 2023-12-23 Patient Goal - T O GET HEALTHY AND STAY THAT WAY Goal 2024-02-23 Patient Goal - T O GET HEALTHY AND STAY THAT WAY Goal 2024-04-20 Patient Goal - T O GET HEALTHY AND STAY THAT WAY Goal 2024-06-21 Patient Goal - T O GET HEALTHY AND STAY THAT WAY Goal Patient Goal - T O GET HEALTHY AND STAY THAT WAY Goal Provider Goal - A PLAN OF CARE WILL BE ESTABLISHED THAT MEETS PATIENT'S SHELTER NEEDS AND INCLUDES PATIENT GOAL FOR HOME HEALTH. Goal Provider Goal - ALTERED MENTAL/BEHAVIORAL STATUS WILL BE IDENTIFIED PROMPTLY AND INTERVENTION INITIATED QUICKLY TO MINIMIZE ASSOCIATED RISKS THROUGHOUT CERTIFICATION PERIOD. Goal Provider Goal - PATIENT WILL REMAIN SAFE IN THE COMMUNITY AND WILL BE FREE OF DANGER TO SELF AND OTHERS THROUGHOUT THE CERTIFICATION PERIOD. Goal Provider Goal - PATIENT WILL REMAIN SAFE WITHOUT DECOMPENSATION IN DEPRESSIVE CONDITION, WHILE MAINTAINING OPTIMAL LEVEL OF MENTAL HEALTH AND WELL BEING THROUGHOUT CERTIFICATION PERIOD. Goal Provider Goal - PSYCHOSOCIAL NEEDS WILL BE IDENTIFIED AND PLAN IMPLEMENTED TO MINIMIZE RISK THROUGHOUT CERTIFICATION PERIOD. Goal Provider Goal - PATIENT WILL DEMONSTRATE AN INCREASED INTEREST IN SOCIALIZATION AND ACTIVITIES BY THE END OF THE CERTIFICATION PERIOD. Goal Provider Goal - PATIENT/CAREGIVER WILL VERBALIZE/DEMONSTRATE KNOWLEDGE OF DIABETIC MANAGEMENT. CHANGES IN DIABETIC STATUS WILL BE IDENTIFIED AND REPORTED TO PHYSICIAN FOR PROMPT INTERVENTION THROUGHOUT THE CERTIFICATION PERIOD. Goal Provider Goal - MEDICATION WILL BE STORED IN DISPENING MACHINE FOR SAFETY. Goal Provider Goal - PATIENT WILL COMPLY WITH MEDICATION WHEN SKILLED NURSE PRE-POURS MEDICATION THROUGHOUT CERTIFICATION PERIOD. Encounters Start Date/Time End Date/Time Encounter Type Admission Type Attending [facility] Care Department Encounter ID Discharge Date Discharge Status Discharge Condition Discharge Reason Percent Goals Met 2018-01-26 00:00:00 2024-08-21 00:00:00 Outpatient RECERTIFIC ATION ZULY RUBINI [facility] [id number]
== END 2024-07-27 14:53 | disposition home or self-care (01) ==
PROVIDERS: PCP Family Medicine; Visit Provider Urology
DX: N40.1 Benign prostatic hyperplasia with lower urinary tract symptoms (principal); R42 Dizziness and giddiness; Z13.9 Encounter for screening, unspecified
CPT/HCPCS: 99024

== ENCOUNTER → 2024-07-27 13:53 | Outpatient (BNVA) | payer OTHER, SELFPAY | PROVIDERS: PCP Family Medicine; Visit Provider Urology | DX: N40.1 Benign prostatic hyperplasia with lower urinary tract symptoms (principal); R42 Dizziness and giddiness | CPT/HCPCS: 81003; 99212 ==

== ENCOUNTER 2024-09-13 13:42 | Outpatient (AMB) | payer OTHER, SELFPAY ==
[2024-09-13 13:53] VITALS: BP 130/80; PULSE 63; O2SAT 98; BMI 35.4
--- NOTE | 2024-09-13 13:53 | A.OFFVIS_ITS ---
Vital Signs 09/13/24 13:53 Height 5 ft 8 in Weight 232 lb 9.403 oz BMI 35.4 BP 130/80 Blood Pressure Location Lt brachial Position Sitting Pulse 63 Pulse Source Pulse Oximeter Pulse Oximetry (%) 98 Oxygen Delivery Method Room Air Intake Visit Reasons: Shortness of breath Intake Note: pt is here for follow up and states he is experiencing some tightness and short of breath with walking. He was coughing but this is better. Medicine Aide Required: No Allergies No Known Allergies Allergy (Verified 09/13/24 14:19) Medication List - Last Reconciled 09/13/24 by Ibis Peralta MD acetaminophen ER 650 mg PO TID PRN albuterol sulfate 90 mcg/actuation (Ventolin HFA) 2 puffs inhalation Q4-6H PRN albuterol sulfate 2.5 mg continuous nebulization TID PRN ascorbic acid (vitamin C) (Vitamin C) 500 mg PO DAILY aspirin 1 tab PO DAILY atorvastatin 40 mg PO DAILY budesonide-formoterol 160-4.5 mcg/actuation (Symbicort) 2 puffs inhalation BID bupropion HCl XL 300 mg PO DAILY cetirizine 10 mg PO DAILY cholecalciferol (vitamin D3) (Vitamin D3) 50 mcg PO DAILY clonidine HCl 0.2 mg PO BEDTIME docusate sodium 100 mg PO BID duloxetine 120 mg PO DAILY ferrous sulfate (FeroSul) 325 mg PO BID finasteride (Proscar) 5 mg PO DAILY 90 days furosemide 40 mg PO DAILY gabapentin 100 mg PO DAILY hydralazine 100 mg PO TID isosorbide mononitrate ER 60 mg PO DAILY levothyroxine 75 mcg PO DAILY@0600 meclizine 25 mg PO TID metformin 1 tab PO TIDWMEAL metoprolol succinate ER 200 mg PO DAILY montelukast 10 mg PO BEDTIME hztlyzgv-tol-RQ-lycopen-lutein 0.4 mg-300 mcg- 250 mcg (Cerovite Senior) 1 tab PO DAILY nitroglycerin 0.4 mg sublingual NEEDED PRN polyethylene glycol 3350 17 grams PO DAILY quetiapine 100 mg BEDTIME temazepam 30 mg PO BEDTIME PRN tramadol 50 mg PO DAILY PRN trazodone 150 mg PO BEDTIME PRN triamcinolone acetonide 0.1% 1 appl topical DAILY Do you need a note to return to daycare/school/sports/work: No HPI HPI Shortness of breath: Details: THIS 74 YEARS OLD GENTLEMAN WITH GROSS OBESITY, ROUND FACE AND SHORT NECK, HAS DIAGNOSIS OF OBSTRUCTIVE SLEEP APNEA BUT HAS NOT BEEN ABLE TO USE CPAP AT ALL. HE IS HERE FOR FOLLOW-UP AND COMPLAINS OF FREQUENT BOUTS OF COUGH WITH TIGHTNESS IN HIS CHEST ESPECIALLY AT NIGHT. HE IS WAKING UP AT LEAST 3 TIMES AT NIGHT. HE FEELS TIRED AND SLEEPY DURING THE DAYTIME. HE DENIES SMOKING CIGARETTE AT THIS TIME, AND ALSO DENIES USING ANY ILLICIT DRUGS. HIS MAIN COMPLAINT IS INTERMITTENT COUGH AND GETTING SHORT OF BREATH ON ANY PHYSICAL EXERTION. UNFORTUNATELY HE HAS NOT BEEN ABLE TO USE THE CPAP, [facility] Medical History Sleep apnea Thyroid disease Depression LUCA (obstructive sleep apnea) Obesity (BMI 30-39.9) Lipoma of neck Coronary artery disease Chronic low back pain Asthma Hyperlipidemia BPH (benign prostatic hyperplasia) Diabetes Personal history of COVID-19 Hypertension Allergic rhinitis COPD (chronic obstructive pulmonary disease) Surgical History History of surgery of head Hx of shoulder surgery Hx of umbilical hernia repair History of surgery Hx of bilateral cataract extraction Hx of cardiac catheterization Hx of circumcision History of esophagogastroduodenoscopy (EGD) H/O colonoscopy Family History Mother No problems noted. Father No problems noted. Social History Household Members: None Housing: House Are you a primary healthcare administration internship to a significant other at home: No Do you presently have visiting nurse or other home services: Yes (DAY CARE SUPERVISOR) Alcohol intake: never Patient Tobacco Use Status: Never used Tobacco Advance Directives Date on File: 05/14/20 service: No Review of Systems Const All systems reviewed & are unremarkable except as noted in HPI and below Eyes Reports no additional complaints ENT Reports nasal congestion (ALL THE TIMES) and Reports post nasal drip Card Denies chest pain, Denies irregular heart rhythm and Reports dyspnea on exertion Resp Reports cough (frequent) and Reports dyspnea on exertion GI Reports no additional complaints Musc Reports no additional complaints Neuro Reports no additional complaints Psych Reports depression Physical Exam Vital Signs: Last Vital Signs Pulse 63 09/13/24 13:53 BP 130/80 09/13/24 13:53 Pulse Ox 98 09/13/24 13:53 Oxygen Delivery Method Room Air 09/13/24 13:53 BMI result Body Mass Index 35.4 Const Other: HE IS GROSSLY OBESE, WITH A ROUND FACE, NARROW OROPHARYNX, MALLAMPATI CLASS 4 NECK CIRCUMFERENCE 18 IN' General: comfortable, no acute distress, alert and awake Orientation/consciousness: patient oriented x3 HEENT Head: Yes normal to inspection General nose exam: No nasal polyps present, No nasal discharge present and Abnormal mucous membranes and turbinates present (NASAL TURBINATES ARE HYPERTROPHIC) Face and sinus: Yes sinuses nontender Mouth: oropharynx normal Throat: Yes posterior oropharynx normal Eyes General: appearance normal, both eyes and all related structures Neck Neck: Yes normal visual inspection, Yes no lymphadenopathy, Yes trachea midline, Yes no JVD and Yes other (Neck circumference 18 in, a golf ball sized lipoma on left side of the neck) Thyroid: Thyroid normal Chest Chest palpation & inspection: normal inspection of the chest, normal palpation of entire chest wall and no tenderness Resp Other: Percussion note resonant, breath sounds are distant with prolonged expiratory phase. No wheezes or creps. are herad . Cardio Palpation: PMI not normal (Not palpable.) Rate: regular rate Rhythm: regular rhythm Heart sounds: no gallops and no murmurs GI Palpation (GI): Soft to palpation, nontender, No hepatosplenomegaly present, no masses and Other GI palpation findings present (Abdomen is obese and protuberant) Auscultation: normal bowel sounds Back/Spine/Pelvis Thoracic/Lumbar Spine: thoracic and lumbar spine normal to inspection Skin General skin exam: no rashes or lesions noted Neuro General: patient oriented x3 and no focal motor deficits Cranial nerves: Yes CN's II-XII intact bilaterally Extrem General: Yes normal to inspection, Yes no clubbing, cyanosis or edema and Yes no calf tenderness Psych Appearance: grossly normal and well kempt Speech and movement: Normal speech and movement present Assessment & Plan Assessment & Plan (1) COPD (chronic obstructive pulmonary disease): Comment: CLINICALLY HAS MODERATELY SEVERE OBSTRUCTIVE AIRWAY DISORDER. HE IS DOING FAIRLY WELL ON HIS CURRENT MEDICAL REGIMEN. STILL GETS SOME BREAKTHROUGH USE AND COMPLAINS OF FREQUENT BOUTS OF COUGH ESPECIALLY AT NIGHT, WHICH I THINK IS MORE DUE TO HIS UNTREATED SLEEP APNEA DENIES SMOKING. Code(s): J44.9 - Chronic obstructive pulmonary disease, unspecified Category: Medical Plan: CONTINUE USING SYMBICORT 160-4.52 PUFFS B.I.D. REGULARLY AND ALBUTEROL 2 PUFFS Q 4-6 HOURS P.R.N. (2) Allergic rhinitis: Comment: IT HAS BEEN A CHRONIC PROBLEM. HE PROBABLY HAS MULTIPLE ENVIRONMENTAL ALLERGIES. Code(s): J30.9 - Allergic rhinitis, unspecified Category: Medical Plan: USE THE MONTELUKAST 10 MG DAILY CETIRIZINE 10 MG ONCE A DAY P.R.N. FLONASE 2 SPRAY IN EACH NOSTRIL DAILY. (3) Obesity (BMI 30-39.9): Comment: Remains grossly obese, this is a chronic problem, lately he has lost some weight. He is trying to limit the calories intake, and also encouraged to start walking on a daily basis. Code(s): E66.9 - Obesity, unspecified Category: Medical Plan: AGAIN STRESSED THAT HE HAS TO LOSE WEIGHT. SINCE HIS LAST VISIT HE GAINED ABOUT 12 LB AND EYES TOLD HIM THAT HE HAS TO LOSE THOSE 12 LB. (4) LUCA (obstructive sleep apnea): Comment: Longstanding history of obstructive sleep apnea, has remained non compliant most of the times and his CPAP device was taken away due to noncompliance. Claims that he has some difficulty in sleeping at night. Code(s): G47.33 - Obstructive sleep apnea (adult) (pediatric) Category: Medical Plan: KNOWING THAT HE IS NOT GOING TO BE ABLE TO USE THE CPAP AT ALL, I ADVISED HIM TO TRY TO SLEEP IN A RECLINER IN UPRIGHT POSITION, THE BEST OPTION WOULD BE IS SIGNIFICANT WEIGHT LOSS WHICH IS DIFFICULT IN HIS CASE TO ITCHY. Coding Level of Care Code Est Pt Level 3 (29656) Diagnoses COPD (chronic obstructive pulmonary disease) J44.9 Allergic rhinitis J30.9 Obesity (BMI 30-39.9) E66.9 LUCA (obstructive sleep apnea) G47.33
--- OUTSIDE RECORDS SUMMARY | 2024-09-13 14:04 | XMS_ITS | Encounter Summary ---
Author Organization [employer] Address [address] [facility] 7t [place] [address] Care Team Providers Care Surveyor Helper Name Role Phone Brandie Evangelista DO Primary Care Provider + [phone] Reason for Visit * Reason Comments Med Refill Encounter Details Date Type Department Care Team ([facility] st Contact Info) Description 11/25/2023 Refill [facility] MEDICINE [address] [place] [address] Brandie Evangelista DO 230 [place], [place] [phone] Social History Tobacco Use Types Packs/Day Years Used Date Smoking Tobacco: Never Smokeless Tobacco: Never Alcohol Use Standard Drinks/Week Comments Never 0 (1 standard drink = 0.6 oz pur e alcohol) Alcohol Answer Date Recorded Frequency of Alcohol Consumption Not on file 10/14/2023 Average Number of Drinks Not on file 024 Frequency of Binge Drinking Not on file 09/24 Score 0 10/14/2023 Depression Answer Date Recorded Patient Health Questionnaire-9 Score 16 10/14/2023 Patient Health Questionnaire-9 Score 16 10/14/2023 Last PHQ-9: Questionnaire Data Not on file 0 10/14/2023 Housing Stability Answer Date Recorded What is your housing situation today? I have clarissa barnard 05/19/[address] you li ve. Do you have problems with any of the following? None of the above 05/19/2023 Food Insecurity Answer Date Recorded Within the past 12 months, y ou worried that your food would run out before you got money to buy more: Never True 05/19/2023 Within the past 12 months,th e food you bought just didn't last and you didn't have enough money to get more: Never True Transportation Answer Date Recorded In the past 12 months, has l ack of transportation kept you from medical appts, meetings, work or from getting things needed for daily living? No 10/14/2023 Utilities Answer Date Recorded In the past 12 months, has t he electric, gas, oil or water company threatened to shut off services in your home? No 05/19/2023 Depression Answer Date Recorded Patient Health Questionnaire-2 Score 4 10/14/2023 Sex and Gender Information Value Date Recorded Sex Assigned at Male 05/25/2022 10:14 AM EDT Legal Sex Male 10:14 AM EDT Gender Identity Male 05/25/2022 10:14 AM EDT Sexual Orientation Straight 05/25/2022 10 :14 AM EDT documented as of this encounter Plan of Treatment Not on file documented as of this encounter Goals Goal Patient Goal Type Associated Problems Recent Progress Patient-Stated? Author Blood Pressure < 140/90 Blood Pressure 194/104(08/30 2:52 PM EST) No Dellogono, Ed, PharmD Hemoglobin A1c < 7 Result Component 6.7( 12:07 PM EST) No Dellogono, Ed, PharmD documented as of this encounter Visit Diagnoses Not on filedocumented in this encounter Additional Health Concerns Assessment Noted Time PHQ-9 Depression Total Score: 16 024 9:38 AM EDT documented as of this encounter Care Teams Surveyor Helper Relationship Specialty Start Date End Date Brandie Evangelista DO [address] [place] [id number] PCP - General Family Medicine 04/04/13 Laney Jha 01/26/18 documented as of this encounter
--- OUTSIDE RECORDS SUMMARY | 2024-09-13 14:04 | XMS_ITS | Encounter Summary ---
Author Organization [employer] Address [address] [facility] 7t [place] [address] Care Team Providers Care Diffusion Furnace Operator Name Role Phone Brandie Evangelista DO Primary Care Provider + [phone] Reason for Visit * Reason Comments Med Refill Encounter Details Date Type Department Care Team ([facility] st Contact Info) Description 01/22/2024 Refill [facility] MEDICINE 230 [place], [place] [phone] Brandie Evangelista DO 230 [place], [place] [phone] Social History Tobacco Use Types Packs/Day Years [...] documented as of this encounter Care Teams Diffusion Furnace Operator Relationship Specialty Start Date End Date Brandie Evangelista DO [address] [place] [phone] PCP - General Family Medicine 04/04/13 Laney Jha 01/26/18 documented as of this encounter
--- OUTSIDE RECORDS SUMMARY | 2024-09-13 14:04 | XMS_ITS | Encounter Summary ---
Author Organization [facility] [facility] Address [address] [place] [address] 7 [place] [address] Care Team Providers Care Pourer Metal Name Role Phone Brandie Evangelista DO Primary Care Provider [phone] Ed Evans PharmD Unavailable Unavail able Encounter Details Date Type Department Care Team (Late st Contact Info) Description 07/13/[address] [facility] [address] [place] [address] Hellen Dick LPN Social History Tobacco Use Types Packs/Day Years Used Date Smoking Tobacco: Never Assessed Sex and Gender Information Value Date Recorded Sex Assigned at Male 05/25/2022 10:14 AM EDT Legal Sex Male 10:14 AM EDT Gender Identity Male 05/25/2022 10:14 AM EDT Sexual Orientation Straight 05/25/2022 10 :14 AM EDT documented as of this encounter Plan of Treatment Not on file documented as of this encounter Visit Diagnoses Not on filedocumented in this encounter Care Teams Pourer Metal Relationship Specialty Start Date End Date Brandie Evangelista DO [address] [place] [address] PCP - General Family Medicine 04/04/13 Ed Evans, PharmD [address] [place] [address] Pharmacist Internal Medicine 12/10/22 07/04/23 Laney Jha 01/26/18 documented as of this encounter
--- OUTSIDE RECORDS SUMMARY | 2024-09-13 14:04 | XMS_ITS | Encounter Summary ---
Author Organization [employer] Address [address] [facility] 7t [place] [address] Care Team Providers Care Special Makeup Fx Artist Instructor Name Role Phone Brandie Evangelista DO Primary Care Provider + [phone] Reason for Visit * Reason Comments Med Refill Encounter Details Date Type Department Care Team ([facility] st Contact Info) Description 01/17/2024 Refill [facility] MEDICINE 230 [place] [address] Brandie Evangelista DO 230 [place], [place] [phone] Social History Tobacco Use Types Packs/Day Years [...] documented as of this encounter Care Teams Special Makeup Fx Artist Instructor Relationship Specialty Start Date End Date Brandie Evangelista DO [address] [place] [address] PCP - General Family Medicine 04/04/13 Laney Jha 01/26/18 documented as of this encounter
--- OUTSIDE RECORDS SUMMARY | 2024-09-13 14:04 | XMS_ITS | Encounter Summary ---
Author Organization [facility] [facility] Address [address] [place] [address] 7 [place] [address] Care Team Providers Care Special Agent In Charge Name Role Phone Brandie Evangelista DO Primary Care Provider [phone] Ed Evans PharmD Unavailable Unavail able Encounter Details Date Type Department Care Team (Late st Contact Info) Description 09/07/2022 Abstract [facility] MEDICINE 230 [place] [address] Brandie Evangelista DO 230 [place] [address] Social History Tobacco Use Types Packs/Day Years [...] on filedocumented in this encounter Care Teams Special Agent In Charge Relationship Specialty Start Date End Date Brandie Evangelista DO [address] [place] [address] PCP - General Family Medicine 04/04/13 Ed Evans, PharmD [address] [place] [phone] Pharmacist Internal Medicine 12/10/22 07/04/23 Laney Jha 01/26/18 documented as of this encounter
--- OUTSIDE RECORDS SUMMARY | 2024-09-13 14:04 | XMS_ITS | Encounter Summary ---
Author Organization [employer] Address [address] [facility] 7t [place] [address] Care Team Providers Care Wastewater Treatment Plant Operator Name Role Phone Brandie Evangelista DO Primary Care Provider + [phone] Reason for Visit * Reason Comments Med Refill Encounter Details Date Type Department Care Team ([facility] st Contact Info) Description 03/06/2024 Refill [facility] MEDICINE 230 [place] [address] Brandie Evangelista DO 230 [place], [place] [phone] Social History Tobacco Use Types Packs/Day Years [...] documented as of this encounter Care Teams Wastewater Treatment Plant Operator Relationship Specialty Start Date End Date Brandie Evangelista DO [address] [place] [phone] PCP - General Family Medicine 04/04/13 Laney Jha 01/26/18 documented as of this encounter
--- OUTSIDE RECORDS SUMMARY | 2024-09-13 14:04 | XMS_ITS | Encounter Summary ---
Author Organization [employer] Address [address] [place] [address] 7t [place] [address] Care Team Providers Care Gas Appliance Adjuster Name Role Phone Brandie Evangelista DO Primary Care Provider + [phone] Encounter Details Date Type Department Care Team (Latest Contact Info) Description 08/30/2024 Travel Social History Tobacco Use Types Packs/Day Years Used Date Smoking Tobacco: Never Passive Smoke Exposure: Never Smokeless Tobacco: Never Alcohol Use Standard [...] documented as of this encounter Care Teams Gas Appliance Adjuster Relationship Specialty Start Date End Date Brandie Evangelista DO 230 [place] [address] PCP - General Family Medicine 04/04/13 Laney Jha 01/26/18 documented as of this encounter
--- OUTSIDE RECORDS SUMMARY | 2024-09-13 14:04 | XMS_ITS | Encounter Summary ---
Author Organization [employer] Address [address] [facility] 7t [place] [address] Care Team Providers Care Senior Pastor Name Role Phone Brandie Evangelista DO Primary Care Provider + [phone] Reason for Visit * Reason Comments Med Refill Encounter Details Date Type Department Care Team ([facility] st Contact Info) Description 12/15/2023 Refill [facility] MEDICINE 230 [place], [place] [phone] Brandie Evangelista DO 230 [place], [place] [phone] Social History Tobacco Use Types Packs/Day Years [...] documented as of this encounter Care Teams Senior Pastor Relationship Specialty Start Date End Date Brandie Evangelista DO [address] [place] [address] PCP - General Family Medicine 04/04/13 Laney Jha 01/26/18 documented as of this encounter
--- OUTSIDE RECORDS SUMMARY | 2024-09-13 14:04 | XMS_ITS | Encounter Summary ---
Author Organization [employer] Address [address] [place] [address] 7t [place] [address] Care Team Providers Care Education Program Coordinator Name Role Phone Brandie Evangelista DO Primary Care Provider + [phone] Reason for Visit * Reason Onset Date Comments Med Refill Appointment Confirmation 11/23/2023 Encounter Details Date Type Department Care Team ([facility] st Contact Info) Description 11/23/2023 Refill [facility] MEDICINE 230 [place] [address] Brandie Evangelista DO [address] [place] [address] Social History Tobacco Use Types Packs/Day Years [...] AM EDT documented as of this encounter Miscellaneous Notes * Telephone Encounter - Claire Mitchell RN - 11/24/2023 9:43 AM EDT TC to pt using [facility] [facility] Catalyst Manufacturing Operator ID# [id number]. Per MD request, pt scheduled for HDF OV 11/30 at 215. Pt stated PM appointments are preferable as he needs help from his SCRAP PREPARATION SUPERVISOR. Pt confirms understanding ofplan and has [facility] contact information. documented in this encounter Plan of Treatment Not on file documented as of this encounter Goals Goal Patient Goal Type Associated Problems Recent Progress Patient-Stated? Author Blood Pressure < 140/90 Blood Pressure 194/104(08/30 2:52 PM EST) No Ed Evans, PharmD Hemoglobin A1c < 7 Result Component 6.7( 12:07 PM EST) No Ed Evans, PharmD documented as of this encounter Visit Diagnoses Not on filedocumented in this encounter Additional Health Concerns Assessment Noted Time PHQ-9 Depression Total Score: 16 024 9:38 AM EDT documented as of this encounter Care Teams Education Program Coordinator Relationship Specialty Start Date End Date Brandie Evangelista DO [address] [place] [address] PCP - General Family Medicine 04/04/13 Laney Jha 01/26/18 documented as of this encounter
--- OUTSIDE RECORDS SUMMARY | 2024-09-13 14:04 | XMS_ITS ---
Author Organization [facility] Address [address] [place] [address] Care Team Providers Care Emanations Analysis Technician Name Role Phone Brandie Evangelista M.D. Primary Care Provider Dennys Arellano Unavailable [phone] ALLERGIES No Known Allergies REASON FOR VISIT [...] examination (Z01.818) Active confirmed Pre-procedure evaluation check (848283012) Problem Chronic GERD (K21.9) Active confirmed Gastroesophagea l reflux disease (disorder) (272840935) Problem Personal history of adenomatous and serrated colon polyps (Z86.0101) Active confirmed VITAL SIGNS BMI 34.31 kg/m2 07/12/2024 Blood pressure systolic 000 mm Hg 07/12/20 24 Blood pressure diastolic 00 mm Hg 024 Height 68.5 in 07/12/2024 Temperature 98.6 degrees Fahrenheit 07/12/20 24 Weight 229 lbs 07/12/2024 Encounters Encounter Location Date Provider Diagnosis [facility] [address] [place] [address] 07/12/2024 Dennys Kimbrough History of adenomato us [...] Gunter Luis E , 10/18/2024 11:20:00 AM, [address] [place] [address], [id number], Progress Notes * Examination Category Sub-Category Detail [...]
--- OUTSIDE RECORDS SUMMARY | 2024-09-13 14:04 | XMS_ITS | Encounter Summary ---
Author Organization [employer] Address [address] [facility] 7t [place] [address] Care Team Providers Care Career Technical Supervisor Name Role Phone Brandie Evangelista DO Primary Care Provider + [phone] Reason for Visit * Reason Comments Med Refill Encounter Details Date Type Department Care Team ([facility] st Contact Info) Description 11/30/2023 Refill [facility] MEDICINE 230 [place], [place] [phone] Brandie Evangelista DO 230 [place], [place] [phone] Social History Tobacco Use Types Packs/Day Years [...] documented as of this encounter Care Teams Career Technical Supervisor Relationship Specialty Start Date End Date Brandie Evangelista DO [address] [place] [phone] PCP - General Family Medicine 04/04/13 Laney Jha 01/26/18 documented as of this encounter
--- OUTSIDE RECORDS SUMMARY | 2024-09-13 14:04 | XMS_ITS | Encounter Summary ---
Author Organization [employer] Address [address] [facility] 7t [place] [address] Care Team Providers Care Document Advisor Name Role Phone Brandie Evangelista DO Primary Care Provider + [phone] Reason for Visit * Reason Comments Med Refill Encounter Details Date Type Department Care Team ([facility] st Contact Info) Description 03/06/2024 Refill [facility] MEDICINE 230 [place] [address] Brandie Evangelista DO 230 [place], [place] [phone] Social History Tobacco Use Types Packs/Day Years [...] documented as of this encounter Care Teams Document Advisor Relationship Specialty Start Date End Date Brandie Evangelista DO [address] [place] [address] PCP - General Family Medicine 04/04/13 Laney Jha 01/26/18 documented as of this encounter
--- OUTSIDE RECORDS SUMMARY | 2024-09-13 14:04 | XMS_ITS | Encounter Summary ---
Author Organization [facility] Address [address] [place] [address] 7 [place] [address] Care Team Providers Care Normalizer Name Role Phone Brandie Evangelista DO Primary Care Provider +1 [phone] dE Evans PharmD Unavailable Unavail able Encounter Details Date Type Department Care Team (Late st Contact Info) Description 08/11/2022 Orders Only [facility] MED[facility] [address] [place] [address] Hellen Dick LPN Social History Tobacco Use [...] on filedocumented in this encounter Care Teams Normalizer Relationship Specialty Start Date End Date Brandie Evangelista DO [address] [place] [id number] PCP - General Family Medicine 04/04/13 Ed Evans, PharmD [address] [place] [address] Pharmacist Internal Medicine 12/10/22 07/04/23 Laney Jha 01/26/18 documented as of this encounter
--- OUTSIDE RECORDS SUMMARY | 2024-09-13 14:04 | XMS_ITS | Encounter Summary ---
Author Organization [employer] Address [address] [place] [address] 7t [place] [address] Care Team Providers Care Jigmaker Name Role Phone Brandie Evangelista DO Primary Care Provider +1 [phone] Ed Evans PharmD Unavailable Unavail able Encounter Details Date Type Department Care Team (Late st Contact Info) Description 09/01/2022 Orders Only [facility] [address] [place] [address] Brandie Thomas LPN Social History Tobacco Use Types Packs/Day [...] on filedocumented in this encounter Care Teams Jigmaker Relationship Specialty Start Date End Date Brandie Evangelista DO [address] [place] [address] PCP - General Family Medicine 04/04/13 Ed Evans, PharmD [address] [place] [address] Pharmacist Internal Medicine 12/10/22 07/04/23 Laney Jha 01/26/18 documented as of this encounter
--- OUTSIDE RECORDS SUMMARY | 2024-09-13 14:04 | XMS_ITS ---
Author Organization [facility] Address [address] [place] [address] Care Team Providers Care Crm Architect Name Role Phone Brandie Evangelista M.D. Primary Care Provider Kiara vailable Dennys Kimbrough Unavailable [phone] REASON FOR VISIT cx procedure tomorrow Encounters Encounter Location Date Provider Diagnosis [facility] [address] [place] [address] 01/11/2024 Dennys Kimbrough PLAN OF TREATMENT Next Appt Details Provider Name:Dennys Kimbrough , 10/18/2024 11:20:00 AM, [address] [place] [address] , [place], [place], [id number],
--- OUTSIDE RECORDS SUMMARY | 2024-09-13 14:04 | XMS_ITS | Encounter Summary ---
Author Organization [facility] Address [address] [place] [address] 7 [place] [address] Care Team Providers Care Drama Director Name Role Phone Brandie Evangelista DO Primary Care Provider [phone] Ed Evans PharmD Unavailable Unavail able Encounter Details Date Type Department Care Team (Late st Contact Info) Description 09/16/2022 Abstract [facility] [address] [place] [address] Brandie Evangelista DO [address] [place] [address] Social History Tobacco Use Types Packs/Day Years [...] on filedocumented in this encounter Care Teams Drama Director Relationship Specialty Start Date End Date Brandie Evangelista DO [address] [place] [phone] PCP - General Family Medicine 04/04/13 Ed Evans, PharmD [address] [place] [address] Pharmacist Internal Medicine 12/10/22 07/04/23 Laney Jha 01/26/18 documented as of this encounter
--- OUTSIDE RECORDS SUMMARY | 2024-09-13 14:04 | XMS_ITS | Encounter Summary ---
Author Organization [employer] Address [address] [facility] 7t [place] [address] Care Team Providers Care Salon Shampoo Assistant Name Role Phone Brandie Evangelista DO Primary Care Provider + [phone] Reason for Visit * Reason Comments Med Refill Encounter Details Date Type Department Care Team ([facility] st Contact Info) Description 03/08/2024 Refill [facility] [address] [place] [address] Brandie Evangelista DO [address] [place], [place] [phone] Social History Tobacco Use Types Packs/Day Years [...] documented as of this encounter Care Teams Salon Shampoo Assistant Relationship Specialty Start Date End Date Brandie Evangelista DO [address] [place] [address] PCP - General Family Medicine 04/04/13 Laney Jha 01/26/18 documented as of this encounter
--- OUTSIDE RECORDS SUMMARY | 2024-09-13 14:04 | XMS_ITS | Encounter Summary ---
Author Organization [employer] Address [address] [place] [address] 7t [place] [address] Care Team Providers Care Fuel Yard Operator Name Role Phone Brandie Evangelista DO Primary Care Provider [phone] [phone] Ed Evans PharmD Unavailable Unavail able Encounter Details Date Type Department Care Team (Late st Contact Info) Description 08/11/2022 Orders Only [facility] [address] [place] [address] Brandie Thomas LPN Social History Tobacco Use [...] on filedocumented in this encounter Care Teams Fuel Yard Operator Relationship Specialty Start Date End Date Brandie Evangelista DO [address] [place] [address] PCP - General Family Medicine 04/04/13 Ed Evans, PharmD [address] [place] [address] Pharmacist Internal Medicine 12/10/22 07/04/23 Laney Jha 01/26/18 documented as of this encounter
--- OUTSIDE RECORDS SUMMARY | 2024-09-13 14:04 | XMS_ITS | Encounter Summary ---
Author Organization [employer] Address [address] [facility] 7t [place] [address] Care Team Providers Care Broker Associate Name Role Phone Brandie Evangelista DO Primary Care Provider + [phone] Reason for Visit * Reason Comments Med Refill Encounter Details Date Type Department Care Team ([facility] st Contact Info) Description 12/08/2023 Refill [facility] MEDICINE [address] [place] [address] Brandie Evangelista DO [address] [place], [place] [phone] Social History Tobacco Use Types Packs/Day Years [...] documented as of this encounter Care Teams Broker Associate Relationship Specialty Start Date End Date Brandie Evangelista DO [address] [place] [address] PCP - General Family Medicine 04/04/13 Laney Jha 01/26/18 documented as of this encounter
--- OUTSIDE RECORDS SUMMARY | 2024-09-13 14:05 | XMS_ITS | Encounter Summary ---
Author Organization [employer] Address [address] [place] [address] 7t [place] [address] Care Team Providers Care Concrete Paving Machine Operator Name Role Phone Brandie Evangelista DO Primary Care Provider +1 [phone] Encounter Details Date Type Department Care Team (Late st Contact Info) Description 08/30/2024 9:30 AM EST Office Visit [facility] MEDICINE [address] [place], [place] [address] Brandie Evangelista DO [address] [place] [address] Chronic pain of both knees (Primary Dx); Type 2 diabetes mellitus without complication, without long-term current use of insulin (CMS/HCC); Chronic bilateral low back pain without sciatica Social History Tobacco Use Types Packs/Day Years [...] the past 12 months, has t he [employer], gas, oil or water company threatened to [...] AM EDT documented as of this encounter Last Filed Vital Signs Vital Sign Reading Time Taken Comments Blood Pressure 194/104 08/30/2024 2:52 PM EST Pulse 78 08/30/2024 9:51 AM EST Temperature 36.7 ??C (98 ??F) 08/30/2024 9:51 AM EST Respiratory Rate 20 08/30/2024 9:51 AM EST Oxygen Saturation - - Inhaled Oxygen Concentration - - Weight 106 kg (232 lb 9.6 oz) 08/30/2024 9:51 AM EST Height 172.7 cm (5' 8 ) 08/30/2024 9:51 AM EST Body Mass Index 35.37 08/30/2024 9:51 AM EST documented in this encounter Miscellaneous Notes * Assessment & Plan Note - Brandie Evangelista DO - 08/30/2024 2:49 PM EST Associated Problem(s): Type 2 diabetes mellitus (CMS/HCC) A1c at goal -cont metformin TID -cont dietary changes -encouraged regular FS monitoring, fasting and PP, and bring glucometer to visits -will re-refer to [facility] pharmacist prn -cont aspirin and statin daily -s/p optho eval NOVEMBER 2022 w/ Dr. Brown, will get copy of eval -foot exam next visit* documented in this encounter Plan of Treatment Scheduled Orders Name Type Priority Associated Diagnoses Orde r Schedule XR Knee 4+ Views Left Imaging Routine Chronic pain of both knees Chronic bilateral low back pain without sciatica Expected: 08/30/2024, Expires: 08/30/2025 XR Knee 4+ Views Right Imaging Routine Chronic pain of both knees Chronic bilateral low back pain without sciatica Expected: 08/30/2024, Expires: 08/30/2025 XR Lumbar Spine 2-3 Views Imaging Routine Chronic pain of both knees Chronic bilateral low back pain without sciatica Expected: 08/30/2024, Expires: 08/30/2025 documented as of this encounter Goals Goal Patient Goal Type Associated Problems Recent Progress Patient-Stated? Author Blood Pressure < 140/90 Blood Pressure 194/104(08/30 2:52 PM EST) No Ed Evans, PharmD Hemoglobin A1c < 7 Result Component 6.7( 12:07 PM EST) No Ed Evans PharmD documented as of this encounter Procedures Procedure Name Priority Date/Time Associated Diagnosis Comments POCT GLYCATED HEMOGLOBIN, TOTAL Routine 08/30/2024 12:07 PM EST Type 2 diabetes mellitus without complication, without long-term current use of insulin ([facility]) POCT GLUCOSE Routine 08/30/2024 9:59 AM EST Type 2 diabetes mellitus without complication, without long-term current use of insulin ([facility]) documented in this encounter Results * (ABNORMAL) POCT HGB A1C (08/30/2024 12:07 PM EST) Hemoglobin A1C 6.7(A) 4.0 - 6.0 % QC Media Lot # [id number] Lot# Expiration Date Blood 08/30/2024 12:0 7 PM EST Brandie Evangelista DO POINT OF CARE TEST ENTER/BRYNN T ORDERABLES Final Result * (ABNORMAL) POCT Glucose (08/30/2024 9:59 AM EST) Glucose Blood, POC 320(A) 60 - 200 mg/dL Comment:RANDOM QC Media Lot # [id number] Lot# Expiration Date Blood Capillary blood specimen / Unknown 08/30/2024 9:59 AM EST Brandie Evangelista DO POINT OF CARE TEST ENTER/BRYNN T ORDERABLES Final Result documented in this encounter Visit Diagnoses Diagnosis Chronic pain of both knees- Primary Type 2 diabetes mellitus without complication, without long-term current use of insulin ([facility]) Chronic bilateral low back pain without sciatica documented in this encounter Additional Health Concerns Assessment Noted Time PHQ-9 Depression Total Score: 16 024 9:38 AM EDT documented as of this encounter Care Teams Concrete Paving Machine Operator Relationship Specialty Start Date End Date Brandie Evangelista DO [address] [place] [address] PCP - General Family Medicine 04/04/13 Laney Jha 01/26/18 documented as of this encounter
--- OUTSIDE RECORDS SUMMARY | 2024-09-13 14:05 | XMS_ITS | Clinical Summary ---
Author Organization [employer] Address [address] [place] [address] [address] [place] [address] Care Team Providers Care Poultry Packer Name Role Phone Brandie Evangelista Primary Care Provider [phone] Allergies No known active allergies Medications tiotropium (Spiriva HandiHaler) 18 MCG inhalation capsuleIndicat ions:Chronic obstructive pulmonary disease, unspecified COPD type ([facility]) inhale 1 capsule by inhalation route every day 90 capsule 3 07/14/20 22 Active Blood Glucose Monitoring Suppl (ONE TOUCH ULTRA 2) w/Device kitIndications :Type 2 diabetes mellitus with other specified complication, unspecified whether 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 11/13/19 23 Active isosorbide mononitrate ER (Imdur) 60 MG 24 hr tablet Take 60 mg by mouth in the morning. 09/22/19 23 Active metoprolol succinate XL (Toprol-XL) 200 MG 24 hr tablet Take 200 mg by mouth in the morning. 11/04/19 23 Active traZODone (Desyrel) 150 MG tablet TOME AIMEE TABLETA TODOS LOS D AL ACOSTARSE CUANDO SEA NECESARIO PARA DORMIR 09/13/19 23 Active calcium carbonate EX (Tums Extra Strength) 750 MG chewable tablet chew 1-2 tab tid ac meals prn abd pain 04/24/20 21 Active cloNIDine (Catapres) 0.2 MG tablet Take 1 mg by mouth Once daily. 11/13/19 23 Active glucose-vitami n C 4-6 GM-MG oral gel chew 2-4 tablets PO as needed for hypoglycemia 03/17/20 21 Active white petrolatum-zin c oxide (Sensi-Care) 49-15 % ointment ointment Apply 1 application topically if needed for dry skin. 113 g 3 11/18/19 23 Active tamsulosin (Flomax) 0.4 MG 24 hr capsuleIndicat ions:Benign prostatic hyperplasia, unspecified whether lower urinary tract symptoms present TAKE ONE CAPSULE BY MOUTH EVERY DAY 30 MINUTES FOLLOWING THE SAME MEAL ^1R1 30 capsule 11 09/23/19 24 Active polyethylene glycol, PEG, 3350 (Glycolax) 17 GM/SCOOP powderIndicati ons:Anemia, unspecified type MIX 17 GRAM(S) IN 8 OZ OF WATER AND DRINK BY MOUTH DAILY DIRECTED (BULK) 510 g 11 09/29/19 24 Active levothyroxine (Synthroid, Levoxyl) 75 MCG tablet TAKE ONE TABLET BY MOUTH EVERY DAY ^1R1 28 tablet 11 09/29/19 24 Active montelukast (Singulair) 10 MG tablet TAKE ONE TABLET BY MOUTH EVERY EVENING ^1R3 30 tablet 11 11/02/19 24 Active docusate sodium (Colace) 100 MG capsule TAKE ONE CAPSULE BY MOUTH TWICE A DAY ^1R1,1R4 60 capsule 11 11/02/19 24 Active ferrous sulfate (FeroSul) 325 (65 Fe) MG tabletIndicati ons:Anemia, unspecified type TAKE ONE TABLET BY MOUTH TWICE A DAY 60 tablet 11 11/02/19 24 Active fluticasone (Flonase) 50 MCG/ACT nasal spray APPLY 2 SPRAYS IN EACH NOSTRIL ONCE DAILY (BULK) 16 g 11 11/02/19 24 Active GNP Alcohol Swabs 70 % pads USE TO CLEAN THE AREA BEFORE CHECKING BLOOD SUGAR ONCE DAILY 100 each 11 11/16/19 24 Active Multiple Vitamins-Security Ambassador als (Cerovite Senior) tablet TAKE ONE TABLET BY MOUTH EVERY DAY ^1R1 28 tablet 11 09/20 24 Active glucose blood (OneTouch Ultra) test stripIndicatio ns:Type 2 diabetes mellitus with other specified complication, unspecified whether 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 insulin use ([facility]) USE TO TEST ONCE DAILY 100 strip 12/13/19 24 Active Lancets (OneTouch Delica Plus [id number]) miscIndication s:Type 2 diabetes mellitus with other specified complication, unspecified whether 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 insulin use ([facility]) USE TO TEST ONCE DAILY 100 each 03/23/20 24 Active cetirizine (ZyrTEC) 10 MG tabletIndicati ons:Seasonal allergic rhinitis, unspecified trigger TAKE ONE TABLET BY MOUTH EVERY DAY ^1R2 30 tablet 04/04/20 24 Active Diclofenac Sodium 1 % gel APPLY 1 INCH TOPICALLY IF NEEDED IN THE MORNING AND AT BEDTIME FOR PAIN (BULK) 100 g 05/11/20 24 Active Aspirin Low Dose 81 MG EC tablet TAKE ONE TABLET BY MOUTH EVERY DAY ^1R1 30 tablet 05/11/20 24 Active Ketotifen Fumarate 0.035 % solution ADMINISTER 1 DROP INTO AFFECTED EYE(S) IN THE MORNING AND AT BEDTIME. 5 mL 07/13/20 24 Active triamcinolone (Kenalog) 0.1 % ointment APPLY TOPICALLY TO AFFECTED AREA(S) TWO TIMES A DAY NEEDED FOR PAIN (BULK) 30 g 07/27/19 25 Active albuterol (Ventolin HFA) 108 (90 Base) MCG/ACT inhalerIndicat ions:Asthma, unspecified asthma severity, unspecified whether complicated, unspecified whether persistent INHALE TWO PUFFS BY MOUTH EVERY 4 TO 6 HOURS NEEDED FOR SHORTNESS OF BREATH (BULK) 18 g 08/02/19 25 Active meclizine (Antivert) 25 MG tabletIndicati ons:Dizziness TAKE ONE TABLET BY MOUTH THREE TIMES A DAY NEEDED FOR DIZZINESS (VIAL) 90 tablet 08/02/19 25 Active Symbicort 160-4.5 MCG/ACT inhalerIndicat ions:Chronic obstructive pulmonary disease, unspecified COPD type ([facility]) INHALE 2 PUFFS BY MOUTH TWICE A DAY EVERY MORNING AND EVERY EVENING (BULK) 10.2 g 5 08/15/19 25 Active Ascorbic Acid (vitamin C) 250 MG tabletIndicati ons:Anemia, unspecified type TAKE ONE TABLET BY MOUTH TWICE A DAY 60 tablet 08/15/19 25 Active gabapentin (Neurontin) 100 MG capsule TAKE ONE CAPSULE BY MOUTH AT BEDTIME 28 capsule 08/15/19 25 Active nitroglycerin (Nitrostat) 0.4 MG SL tabletIndicati ons:Chest pain, unspecified type PLACE 1 TABLET UNDER TONGUE AND ALLOW TO DISSOLVE ONCE EVERY 5 MINUTES IF NEEDED FOR CHEST PAIN; IF NO RELIEF AFTER THIRD DOSE CALL 911 (ORIGINAL BOTTLE) 100 tablet 08/15/19 25 Active furosemide (Lasix) 40 MG tabletIndicati ons:Swelling of both lower extremities TAKE ONE TABLET BY MOUTH EVERY DAY 30 tablet 08/15/19 25 Active metFORMIN (Glucophage) 500 MG tabletIndicati ons:Type 2 diabetes mellitus with other specified complication, without long-term current use of insulin ([facility]) TAKE ONE TABLET BY MOUTH THREE TIMES A DAY WITH MEALS 90 tablet 08/15/19 25 Active cholecalcifero l VITAMIN D (Vitamin D-3) 50 MCG (1999 UT) capsuleIndicat ions:Vitamin D deficiency TAKE ONE CAPSULE BY MOUTH EVERY DAY ^1R1 28 capsule 08/25/19 25 Active albuterol (2.5 MG/3ML) 0.083% nebulizer solution INHALE THE CONTENTS OF ONE VIAL VIA NEBULIZER EVERY 6 HOUR NEEDED FOR COUGH, FOR SHORTNESS OF BREATH, OR FOR WHEEZING (BULK) 90 mL 08/25/19 25 Active acetaminophen (Tylenol 8 Hour) 650 MG ER tablet TAKE ONE TABLET BY MOUTH EVERY 8 HOURS NEEDED FOR PAIN AND/OR FEVER (VIAL) 60 tablet 08/25/19 25 Active Ascorbic Acid (vitamin C) 250 MG tabletIndicati ons:Anemia, unspecified type TAKE 1 TABLET BY MOUTH TWICE A DAY 180 tablet 08/30/19 24 025 Discontinued furosemide (Lasix) 40 MG tabletIndicati ons:Swelling of both lower extremities TAKE ONE TABLET BY MOUTH EVERY DAY 90 tablet 08/30/19 24 025 Discontinued metFORMIN (Glucophage) 500 MG tabletIndicati ons:Type 2 diabetes mellitus with other specified complication, without long-term current use of insulin (CMS/HCC) TAKE 1 TABLET BY MOUTH THREE TIMES DAILY WITH MEALS 270 tablet 08/30/19 24 025 Discontinued cholecalcifero l 50 MCG (1999) capsuleIndicat ions:Vitamin D deficiency TAKE ONE CAPSULE BY MOUTH EVERY DAY ^1R1 28 capsule 11 09/29/19 24 025 Discontinued Symbicort 160-4.5 MCG/ACT inhalerIndicat ions:Chronic obstructive pulmonary disease, unspecified COPD type (CMS/HCC) INHALE 2 PUFFS BY MOUTH TWICE A DAY EVERY MORNING AND EVERY EVENING (BULK) 10.2 g 5 02/09/20 24 025 Discontinued acetaminophen (Tylenol 8 Hour) 650 MG ER tablet TAKE ONE TABLET BY MOUTH EVERY 8 HOURS NEEDED FOR PAIN AND/OR FEVER (VIAL) 60 tablet 5 03/21/20 24 025 Discontinued nitroglycerin (Nitrostat) 0.4 MG SL tabletIndicati ons:Chest pain, unspecified type PLACE 1 TABLET UNDER THE TONGUE EVERY 5 MINTUES IF NEEDED FOR CHEST PAIN. PLACE 1 TABLET ON THE CHEEK AT FIRST SIGN OF AN ATTACK, NO MORE THAN 3 TABLETS ARE RECOMMENDED WITHIN A 15 MINUTE PERIOD (BULK) 100 tablet 03/21/20 24 025 Discontinued gabapentin (Neurontin) 100 MG capsule TAKE ONE CAPSULE BY MOUTH AT BEDTIME 28 capsule 3 03/29/20 24 025 Discontinued albuterol (2.5 MG/3ML) 0.083% nebulizer solution INHALE THE CONTENTS OF ONE VIAL VIA NEBULIZER EVERY 6 HOUR NEEDED FOR COUGH, FOR SHORTNESS OF BREATH, OR FOR WHEEZING (BULK) 90 mL 3 05/01/20 24 025 Discontinued Active Problems Problem Noted Date Diagnosed Date Urinary retention 12/01/2023 Assessment & Plan (12/01/2023 4:51 PM EDT): Stat referral to urology for further management Chronic venous insufficiency 05/19/2023 Vertigo 11/16/2022 Chronic obstructive pulmonary disease 11/16/2022 History of pulmonary embolism 11/16/2022 Allergic rhinitis 11/16/2022 Cerebral microvascular disease 11/16/2022 History of COVID-19 11/16/2022 Diverticulosis 11/16/2022 Varicose veins of both lower extremities 023 Benign prostatic hyperplasia 05/24/2015 Hypothyroidism 05/07/2015 Chronic low back pain 05/07/2015 Hyperlipidemia 05/07/2015 Essential hypertension 05/07/2015 Assessment & Plan (10/14/2023 10:26 AM EDT): Uncontrolled, it could be related to pain Treat pain as above Counseled to take all medications and fu BP w RN in 2 wks, consider start ARB Refer to [facility] clinic again, reportedly never received phone call for appointments No change in medications today Moderate persistent asthma 05/07/2015 Assessment & Plan (12/01/2023 4:54 PM EDT): Patient educated to avoid asthma triggers C/w albuterol PRN Spiriva re initiated today BMI 34.0-34.9,adult 05/07/2015 Obstructive sleep apnea 05/07/2015 Panic disorder without agoraphobia 05/07/2015 Major depression, recurrent, chronic 05/07/2015 Type 2 diabetes mellitus 05/07/2015 Assessment & Plan (08/30/2024 2:50 PM EST): A1c at goal -cont metformin TID -cont dietary changes -encouraged regular FS monitoring, fasting and PP, and bring glucometer to visits -will re-refer to [facility] pharmacist prn -cont aspirin and statin daily -s/p optho eval NOVEMBER 2022 w/ Dr. Brown, will get copy of eval -foot exam next visit* Assessment & Plan (12/01/2023 4:52 PM EDT): .Diabetes is: controlled - Lab Results Component Value Date HGBA1C 6.5 (A) 12/01/2023 HGBA1C 6.4 (H) 05/20/2023 HGBA1C 6.7 (A) 05/19/2023 - Lab Results Component Value Date MICROALBUR 62.0 05/20/2023 CREATININE 0.98 05/20/2023 -Changes: none - Continue lifestyle modifications - Continue current medications and f/u with PCP Assessment & Plan (10/14/2023 10:26 AM EDT): Last A1c was at goal, fu w PCP next month No change in medications at this time Counseled re more frequent low calorie/carb meals. Check fgstk daily Encouraged physical activity as tolerated. Resolved Problems Problem Noted Date Diagnosed Date Resolved Date Metabolic encephalopathy 12/01/2023 Assessment & Plan (12/01/2023 4:51 PM EDT): Looks like patient is improving regarding his mental status Reports back or go to emergency room if feeling confuse again Neck sprain 10/14/2023 12/17/2023 Assessment & Plan (10/14/2023 10:26 AM EDT): Recommended heat to affected area + diclofenac gel + tylenol Recommended neck stretching exercises at home Encounter for preventive health examination 10/14/2023 12/17/2023 Assessment & Plan (10/14/2023 1:59 PM EDT): Discussed with patient re increase fresh fruit and vegetable intake. Counseled re moderate exercise as tolerated, up to 20min/d Patient feels safe at home. Eye exam up to date, next one due in 6 m at [facility] [place] CRC screen overdue, needs to reschedule once BP is better controlled Labs up to date, nl Vaccinations he needs Covid booster + second dose of Zoster. He can have them when he comes back for BP check or will come at earliest convenience to our walk in Covid vax clinic. I advised about RSV, all other IZ are up to date. Order T-spot for TD Dental visit up to date, reminded to reschedule appointment for dental once BP is better controlled CAD (coronary artery disease) 05/19/2023 05/19/2023 05/19/2023 Depression 05/19/2023 05/19/2023 05/19/2023 Epigastric pain 11/13/2022 11/16/2022 Encounters Date Type Department Care Team Description 08/30/2024 9:30 AM EST Office Visit [facility] [address] [place] [address] Brandie Evangelista DO Chronic pain of both knees (Primary Dx); Type 2 diabetes mellitus without complication, without long-term current use of insulin ([facility]); Chronic bilateral low back pain without sciatica 08/30/2024 Travel 08/25/2024 Refill [facility] [address] [place] [address] Brandie Evangelista DO Vitamin D deficiency 08/14/2024 Refill [facility] [address] [place] [address] Brandie Evangelista DO Anemia, unspecified type; Chest pain, unspecified type; Swelling of both lower extremities; Type 2 diabetes mellitus with other specified complication, without long-term current use of insulin ([facility]) 08/13/2024 Refill [facility] [address] [place] [address] Brandie Evangelista DO Chronic obstructive pulmonary disease, unspecified COPD type ([facility]) 07/31/2024 Refill [facility] [address] [place] [address] Brandie Evangelista DO Dizziness 07/31/2024 Refill [facility] [address] [place] [address] Cristiane Sexton MD Asthma, unspecified asthma severity, unspecified whether complicated, unspecified whether persistent; Dizziness 07/28/2024 Telephone [facility] [phone] Brandie Evangelista DO Appointment Request 07/28/2024 Telephone [facility] [address] [place] [address] Brandie Evangelista DO Durable Medical Equipment (DME Request: [facility]os) 07/27/2024 Telephone [facility] [address] [facility] [place] [address] Brandie Evangelista DO Medication Question 07/27/2024 Telephone [facility] [address] [place] [phone] Brandie Evangelista, Med Refill 07/26/2024 Refill [facility] [address] [place], [place] [phone] Brandie Evangelista DO 07/13/2024 Refill [facility] [address] [place] [address] Brandie Evangelista, 07/03/2024 Refill [facility] [address] [place] [address] Brandie Evangelista DO Anemia, unspecified type; Swelling of both lower extremities; Type 2 diabetes mellitus with other specified complication, without long-term current use of insulin ([facility]); Chest pain, unspecified type from Last 3 Months Immunizations Name Administration Dates Next Due Influenza High-dose Quadriva lent Preservative Free 05/19/2023,05/07/2022,05/26/2021,05/09 Influenza injectable quadriv alent IIV4 with preservative 05/05/2019,05/06/2016,05/24/2015 Influenza injectable quadriv alent preservative free 11/08/2014 Influenza, High Dose Seasona l, Preservative Free 04/20/2018,04/27/2017 Influenza, IIV3, injectable 06/09/2016,1 09/13/2012,05/02/2008,06/23 Influenza, Split (incl. starla fied surface antigen) 03/24/2012 Pfizer Covid-19 Vaccine 12+ 12/17/2023 Pneumococcal Conjugate PCV 13 08/11/2016 Pneumococcal Conjugate PCV 20 12/17/2023 Pneumococcal Polysaccharide PPSV23 05/24/2015, TD (adult), 2 Lf tetanus tox oid, preservative free, adsorbed 12/18/2004 Tdap 10/05/2019,07/17/2013 Zoster, live 02/11/2015 Social History Tobacco Use Types Packs/Day Years Used Date Smoking Tobacco: Never Passive Smoke Exposure: Never Smokeless Tobacco: Never Tobacco Cessation:Counseling Given: Not Answered Alcohol Use Standard Drinks/Week Comments Never 0 [...] your housing situation today? I have clarissa sing 05/19/[address] you li [...] Orientation Straight 05/25/2022 10 :14 AM EDT Last Filed Vital Signs Vital Sign Reading Time Taken Comments Blood Pressure 194/104 08/30/2024 2:52 PM EST Pulse 78 08/30/2024 9:51 AM EST Temperature 36.7 ??C (98 ??F) 08/30/2024 9:51 AM EST Respiratory Rate 20 08/30/2024 9:51 AM EST Oxygen Saturation 96% 04/28/2024 9:39 AM EDT Inhaled Oxygen Concentration - - Weight 106 kg (232 lb 9.6 oz) 08/30/2024 9:51 AM EST Height 172.7 cm (5' 8 ) 08/30/2024 9:51 AM EST Body Mass Index 35.37 08/30/2024 9:51 AM EST Plan of Treatment Health Maintenance Due Date Last Done Comments CT Colonography 1950 FIT DNA/Cologuard 1950 FIT 1950 FOBT 1950 Sigmoidoscopy 1950 Diabetes: Foot Exam 1960 Eye Exam 1960 RSV Patients and Patients Aged 60 years or older (1 - Risk 60-74 years 1-dose series) 2010 Zoster Vaccines (2 of 3) 04/08/2015 02/11/2015 Colonoscopy 06/21/2022 06/21/2017 Colorectal Cancer Screening 06/21/2022 COVID-19 Vaccine ( - season) 2024 12/17/2023, 05/07/2022, 07/02/2021 Influenza Vaccine (#1) 2024 , 05/07/2022, 05/26/2021, Additional history exists Depression Monitoring (PHQ-9) 04/15/2024 10/14/2023, 10/14/2023 Diabetes: Urine Protein Screening 05/20/2024 05/20/2023, 09/11/2021, 02/17/2021, Additional history exists Lipid Panel 05/20/2024 05/20/2023, 08/26, 02/17/2021, Additional history exists Alcohol/Substance Use Screening 10/13/2024 10/14/2023 Depression Screening 10/13/2024 10/14/2023, 10/14/19 SDOH Screening 10/13/2024 10/14/2023 Diabetes: Hemoglobin A1C 02/27/2025 025, 04/28/2024, 12/17/2023, Additional history exists Tobacco Screening 08/30/2025 08/30/2024 DTaP/Tdap/Td Vaccines (3 - Td or Tdap) 10/04/2029 10/05/2019, 07/17/2013, 12/18/2004 Hepatitis C Screening Completed 05/20/2023 , 02/17/2021, 05/09/2020 Pneumococcal Vaccine: 50+ Years Completed 12/17/2023, 08/11/2016, 05/24/2015, Additional history exists HIB Vaccines Aged Out No longer eligi ble based on patient's age to complete this topic HPV Vaccines Aged Out No longer eligi ble based on patient's age to complete this topic Hepatitis A Vaccines Aged Out No long er eligible based on patient's age to complete this topic Hepatitis B Vaccines Aged Out No long er eligible based on patient's age to complete this topic IPV Vaccines Aged Out No longer eligi ble based on patient's age to complete this topic Meningococcal Vaccine Aged Out No cedric susan eligible based on patient's age to complete this topic RSV under 20 months Aged Out No longe r eligible based on patient's age to complete this topic Rotavirus Vaccines Aged Out No longer eligible based on patient's age to complete this topic Goals Goal Patient Goal Type Associated Problems Recent Progress Patient-Stated? Author Blood Pressure < 140/90 Blood Pressure 194/104(08/30 2:52 PM EST) No Ed Evans, Getachew Hemoglobin A1c < 7 Result Component 6.7( 12:07 PM EST) No Ed Evans PharmD Procedures Procedure Name Priority Date/Time Associated Diagnosis Comments POCT GLYCATED HEMOGLOBIN, TOTAL Routine 08/30/2024 12:07 PM EST Type 2 diabetes mellitus without complication, without long-term current use of insulin (CMS/HCC) POCT GLUCOSE Routine 08/30/2024 9:59 AM EST Type 2 diabetes mellitus without complication, without long-term current use of insulin (CMS/HCC) HEPATITIS C AB W/REFL TO HCV RNA, QN, PCR Routine 05/20/2023 10:50 AM EDT ALBUMIN, RANDOM URINE W/CREATININE Routine 05/20/2023 10:50 AM EDT LIPID PANEL, STANDARD Routine 05/20/2023 10:50 AM EDT Type 2 diabetes mellitus without complication, without long-term current use of insulin (CMS/HCC) HM COLONOSCOPY Routine 06/21/2017 9:36 AM EST from Last 3 Months or Most Recently Relevant to Health Maintenance Results * (ABNORMAL) POCT HGB A1C (08/30/2024 12:07 PM EST) Hemoglobin A1C 6.7(A) 4.0 - 6.0 % QC Media Lot # [id number] Lot# Expiration Date Blood 08/30/2024 12:0 7 PM EST Brandie Tonja DO POINT OF CARE TEST ENTER/BRYNN T ORDERABLES Final Result * (ABNORMAL) POCT Glucose (08/30/2024 9:59 AM EST) Glucose Blood, POC 320(A) 60 - 200 mg/dL Comment:RANDOM QC Media Lot # [id number] Lot# Expiration Date Blood Capillary blood specimen / Unknown 08/30/2024 9:59 AM EST Brandie Tonja DO POINT OF CARE TEST ENTER/BRYNN T ORDERABLES Final Result * (ABNORMAL) Albumin, Random Urine W/Creatinine (05/20/2023 10:50 AM EDT) Creatinine, Urine 124.33 mg/dL [facility] Microalbumin Urine 62.0 mg/L H [facility] Microalbum Creatinine Ratio Ur 49.8(H) <30 ug/mg cr [facility] Comment:Albumin/Creatinine R atio Reference Ranges: Normal: < 30 ug/mg creatinine Microalbuminuria: 30 - 300 ug/mg creatinineClinical Albuminuria: > 300 ug/mg creatinine 05/20/2023 10:5 0 AM EDT 05/20/2023 11:40 AM EDT Brandie Evangelista DO LAB URINE ORDERABLES Final R esult [facility] [address] [place] [phone] * Hepatitis C Antibody with Reflex to HCV, RNA, Quantitative, Real-Time PCR (05/20/2023 10:50 AM EDT) Hepatitis C Antibody Nonreactive Nonreactive [facility] Comment:Antibodies to HCV no t detected; does not exclude early acuteHCV infection. 05/20/2023 10:5 0 AM EDT 05/20/2023 11:40 AM EDT Brandie Tonja BAIG LAB BLOOD ORDERABLES Final R esult Performing Organization Address [facility] Co de Phone Number [facility] [address] [place] [address] [phone] * (ABNORMAL) Lipid Panel, Standard (05/20/2023 10:50 AM EDT) Triglycerides 92 <150 mg/dL [facility] Comment:Desirable Triglyceri de: less than 150 mg/dLBorderline High Triglyceride 150-199 mg/dLHigh Triglyceride: 200-499 mg/dLVery High Triglyceride: greater than or equal to 5OO mg/dL Cholesterol 75 <200 mg/dL [facility] Comment:Desirable Cholestero l: less than 200 mg/dLBorderline High Cholesterol: 200-239 mg/dLHigh Cholesterol: greater than 239 mg/dL LDL Cholesterol Calculated 28 <100 mg/dL [facility] Comment:Desirable LDL: less than 100 mg/dLNear Optimal/Above Optimal LDL: 110- 129 mg/dLBorderline High LDL: 130-159 mg/dLHigh LDL: 160-189 mg/dLVery High LDL: greater than or equal to 190 mg/dL HDL Cholesterol 29(L) >40 mg/dL [facility] Comment:Desirable HDL: great er than 40 mg/dL Note: This HDL assay may give artificially low results in patients with liver disease. Blood Venous blood specimen / Unknown 05/20/2023 10:50 AM EDT 05/20/2023 11:40 AM EDT Brandie Evangelista DO LAB BLOOD ORDERABLES Final R esult Performing Organization Address City/[facility]/ZIP Co de Phone Number [facility] [address] [place] [address] [phone] * Hm Colonoscopy (06/21/2017 9:36 AM EST) Historical Provider HEALTH MAINTENANCE Final Result from Last 3 Months or Most Recently Relevant to Health Maintenance Insurance [facility] Care Teams Poultry Packer Relationship Specialty Start Date End Date Brandie Evangelista DO [address] [place] [phone] PCP - General Family Medicine 04/04/13 Laney Jha 01/26/18
--- OUTSIDE RECORDS SUMMARY | 2024-09-13 14:05 | XMS_ITS | Encounter Summary ---
Author Organization [employer] Address [address] [facility] 7t [place] [address] Care Team Providers Care Cassandra Architect Name Role Phone Brandie Evangelista DO Primary Care Provider +1 [phone] Ed Evans PharmD Unavailable Unavail able Encounter Details Date Type Department Care Team (Late st Contact Info) Description 05/21/2023 Abstract [facility] MEDICINE [address] [place] [address] Brandie Evangelista DO [address] [place] [address] Social History Tobacco Use Types Packs/Day Years Used Date Smoking Tobacco: Never Smokeless Tobacco: Never Depression Answer Date Recorded Patient Health Questionnaire-9 Score 5 11/16/2022 Housing Stability Answer Date Recorded What is your housing situation today? I have clarissamoses barnard 05/19/[address] you [...] getting things needed for daily living? No 05/19/2023 Utilities Answer Date Recorded In the past 12 months, has t he electric, gas, oil or water company threatened to shut off services in your home? No 05/19/2023 Depression Answer Date Recorded Patient Health Questionnaire-2 Score 2 11/16/2022 Sex and Gender Information Value Date Recorded [...] Assessment Noted Time PHQ-9 Depression Total Score: 5 11/17/19 23 10:04 AM EDT documented as of this encounter Care Teams Cassandra Architect Relationship Specialty Start Date End Date Brandie Evangelista DO [address] [place] [address] PCP - General Family Medicine 04/04/13 Ed Evans, PharmD [address] [place] [address] Pharmacist Internal Medicine 12/10/22 07/04/23 Laney Jha 01/26/18 documented as of this encounter
--- OUTSIDE RECORDS SUMMARY | 2024-09-13 14:05 | XMS_ITS | Encounter Summary ---
Author Organization [employer] Address [address] [facility] 7t [place] [address] Care Team Providers Care Social Work Nurse Name Role Phone Brandie Evangelista DO Primary Care Provider + [phone] Reason for Visit * Reason Comments Med Refill Encounter Details Date Type Department Care Team ([facility] st Contact Info) Description 07/14/2023 Refill [facility] MEDICINE [address] [place], [place] [phone] Brandie Evangelista DO 230 [place], [place] [phone] Social History Tobacco Use Types Packs/Day Years [...] Result Component 6.7( 12:07 PM EST) No DellogEd christianson, PharmD documented as of this encounter Visit Diagnoses Not on filedocumented in this encounter Additional Health Concerns Assessment Noted Time PHQ-9 Depression Total Score: 5 11/17/19 23 10:04 AM EDT documented as of this encounter Care Teams Social Work Nurse Relationship Specialty Start Date End Date Brandie Evangelista DO 230 [place] [address] PCP - General Family Medicine 04/04/13 Laney Jha 01/26/18 documented as of this encounter
--- OUTSIDE RECORDS SUMMARY | 2024-09-13 14:05 | XMS_ITS | Encounter Summary ---
Author Organization [employer] Address [address] [place] [address] 7t [place] [address] Care Team Providers Care Ophthalmic Surgeon Name Role Phone Brandie Evangelista DO Primary Care Provider +1 [phone] Ed Evans PharmD Unavailable Unavail able Reason for Visit * Reason Comments Med Refill Encounter Details Date Type Department Care Team ([facility] st Contact Info) Description 03/25/2023 Refill [facility] MEDICINE [address] [place] [address] Brandie Evangelista DO 230 [place] [address] Asthma, unspecified asthma severity, unspecified whether complicated, unspecified whether persistent; Seasonal allergic rhinitis, unspecified trigger Social History Tobacco Use Types Packs/Day Years Used Date Smoking Tobacco: Never Smokeless Tobacco: Never Depression Answer Date Recorded Patient Health Questionnaire-9 Score 5 11/16/2022 Depression Answer Date Recorded Patient Health Questionnaire-2 [...] documented as of this encounter Visit Diagnoses Diagnosis Asthma, unspecified asthma severity, unspecified whether complicated, unspecified whether persistent Seasonal allergic rhinitis, unspecified trigger documented in this encounter Additional Health Concerns Assessment Noted Time PHQ-9 Depression Total Score: 5 11/17/19 23 10:04 AM EDT documented as of this encounter Care Teams Ophthalmic Surgeon Relationship Specialty Start Date End Date Brandie Evangelista DO 230 [place] [address] PCP - General Family Medicine 04/04/13 Ed Evans, PharmD 230 [place] [address] Pharmacist Internal Medicine 12/10/22 07/04/23 Laney Jha 01/26/18 documented as of this encounter
--- OUTSIDE RECORDS SUMMARY | 2024-09-13 14:05 | XMS_ITS | Encounter Summary ---
Author Organization [employer] Address [address] [facility] 7t [place] [address] Care Team Providers Care Infrastructure Security Architect Name Role Phone Brandie Evangelista DO Primary Care Provider + [phone] Reason for Visit * Reason Comments Med Refill Encounter Details Date Type Department Care Team ([facility] st Contact Info) Description 10/27/2023 Refill [facility] MEDICINE 230 [place] [address] Dacia Baez MD 230 [place], [place] [phone] Social History Tobacco Use Types Packs/Day Years [...] documented as of this encounter Care Teams Infrastructure Security Architect Relationship Specialty Start Date End Date Brandie Evangelista DO [address] [place] [address] PCP - General Family Medicine 04/04/13 Laney Jha 01/26/18 documented as of this encounter
--- OUTSIDE RECORDS SUMMARY | 2024-09-13 14:05 | XMS_ITS | Encounter Summary ---
Author Organization [employer] Address [address] [place] [address] 7t [place] [address] Care Team Providers Care Gun Synchronizer Name Role Phone Brandie Evangelista DO Primary Care Provider +1 [phone] Ed Evans PharmD Unavailable Unavail able Reason for Visit * Reason Onset Date Comments Medication Question 04/01/2023 Encounter Details Date Type Department Care Team ([facility] st Contact Info) Description 04/01/2023 Telephone [facility] MEDICINE 230 [place], [place] [phone] Brandie Evangelista DO [address] [place], [place] [phone] Medication Question Social History Tobacco Use Types Packs/Day Years [...] encounter Miscellaneous Notes * Telephone Encounter - Rupinder Serrano RN - 04/05/2023 11:39 AM EDT T/C to [phone] for below message, No answer. LVM to call back on [phone]. * Telephone Encounter - Jovanna Nichols - 04/01/2023 4:51 PM EDT Tc from patients Son requesting a call back, in regards to patients medications and interactions. Please call [phone]. documented in this encounter Plan of Treatment [...] documented as of this encounter Care Teams Gun Synchronizer Relationship Specialty Start Date End Date Brandie Evangelista DO [address] [place] [address] PCP - General Family Medicine 04/04/13 Ed Evans, PharmD [address] [place] [address] Pharmacist Internal Medicine 12/10/22 07/04/23 Laney Jha 01/26/18 documented as of this encounter
--- OUTSIDE RECORDS SUMMARY | 2024-09-13 14:05 | XMS_ITS | Encounter Summary ---
Author Organization [employer] Address [address] [facility] 7t [place] [address] Care Team Providers Care Fabrication Specialist Name Role Phone ElizabethBrandie becker Primary Care Provider + [phone] Encounter Details Date Type Department Care Team (Late st Contact Info) Description 11/05/2023 Orders Only [facility] MEDICINE 230 [place] [address] Provider, MD Trudy Social History Tobacco Use Types Packs/Day Years [...] Ed, PharmD documented as of this encounter Procedures Procedure Name Priority Date/Time Associated Diagnosis Comments HM COLONOSCOPY Routine 06/21/2017 9:36 AM EST documented in this encounter Results * Hm Colonoscopy (06/21/2017 9:36 AM EST) Historical Provider HEALTH MAINTENANCE Final Result documented in this encounter Visit Diagnoses Not on filedocumented in this encounter Additional Health Concerns Assessment Noted Time PHQ-9 Depression Total Score: 16 024 9:38 AM EDT documented as of this encounter Care Teams Fabrication Specialist Relationship Specialty Start Date End Date Brandie Evangelista DO 230 [place] [address] PCP - General Family Medicine 04/04/13 Laney Jha 01/26/18 documented as of this encounter
--- OUTSIDE RECORDS SUMMARY | 2024-09-13 14:05 | XMS_ITS | Encounter Summary ---
Author Organization [employer] Address [address] [facility] 7t [place] [address] Care Team Providers Care Manager Adult Name Role Phone Brandie Evangelista DO Primary Care Provider + [phone] Ed Evans PharmD Unavailable Unavail able Reason for Visit * Reason Comments Med Refill Encounter Details Date Type Department Care Team ([facility] st Contact Info) Description 07/01/2023 Refill [facility] MEDICINE 230 [place] [address] Brandie Evangelista DO 230 [place] [address] Chest pain, unspecified type Social History Tobacco Use Types Packs/Day Years [...] Pressure 194/104(08/30 2:52 PM EST) No Ed Evans PharmD Hemoglobin A1c < 7 Result Component 6.7( 12:07 PM EST) No Ed Evans PharmD documented as of this encounter Visit Diagnoses Diagnosis Chest pain, unspecified type documented in this encounter Additional Health Concerns Assessment Noted Time PHQ-9 Depression Total Score: 5 11/17/19 23 10:04 AM EDT documented as of this encounter Care Teams Manager Adult Relationship Specialty Start Date End Date Brandie Evangelista DO 230 [place] [address] PCP - General Family Medicine 04/04/13 Ed Evans, Getachew [address] [place] [address] Pharmacist Internal Medicine 12/10/22 07/04/23 Laney Jha 01/26/18 documented as of this encounter
--- OUTSIDE RECORDS SUMMARY | 2024-09-13 14:05 | XMS_ITS | Encounter Summary ---
Author Organization [employer] Address [address] [facility] 7t [place] [address] Care Team Providers Care Asset Coordinator Name Role Phone Brandie Evangelista DO Primary Care Provider + [phone] Reason for Visit * Reason Comments Med Refill Encounter Details Date Type Department Care Team ([facility] st Contact Info) Description 04/26/2024 Refill [facility] MEDICINE 230 [place] [address] Brandie Evangelista DO 230 [place], [place] [phone] Social History Tobacco Use Types Packs/Day Years [...] documented as of this encounter Care Teams Asset Coordinator Relationship Specialty Start Date End Date Brandie Evangelista DO [address] [place] [address] PCP - General Family Medicine 04/04/13 Laney Jha 01/26/18 documented as of this encounter
--- OUTSIDE RECORDS SUMMARY | 2024-09-13 14:05 | XMS_ITS | Encounter Summary ---
Author Organization [employer] Address [address] [facility] 7t [place] [address] Care Team Providers Care Campaign Manager Name Role Phone Brandie Evangelista DO Primary Care Provider + [phone] Reason for Visit * Reason Comments Med Refill Encounter Details Date Type Department Care Team ([facility] st Contact Info) Description 04/25/2024 Refill [facility] MEDICINE 230 [place] [address] Brandie Evangelista DO 230 [place], [place] [phone] Social History Tobacco Use Types Packs/Day Years [...] documented as of this encounter Care Teams Campaign Manager Relationship Specialty Start Date End Date Brandie Evangelista DO [address] [place] [address] PCP - General Family Medicine 04/04/13 Laney Jha 01/26/18 documented as of this encounter
--- OUTSIDE RECORDS SUMMARY | 2024-09-13 14:05 | XMS_ITS | Encounter Summary ---
Author Organization [employer] Address [address] [facility] 7t [place] [address] Care Team Providers Care Third Shift Lieutenant Name Role Phone Brandie Evangelista DO Primary Care Provider + [phone] Ed Evans PharmD Unavailable Unavail able Reason for Visit * Reason Comments Med Refill Encounter Details Date Type Department Care Team ([facility] st Contact Info) Description 05/21/2023 Refill [facility] MEDICINE 230 [place] [address] Brandie Evangelista DO 230 [place] [address] Muscle spasm; Seasonal allergic rhinitis, unspecified trigger Social History [...] t he electric, gas, oil or water [employer] threatened to shut off services in your [...] 194/104(08/30 2:52 PM EST) No Ed Evans PharmKeila Hemoglobin A1c < 7 Result Component 6.7( 12:07 PM EST) No Ed Evans, PharmD documented as of this encounter Visit Diagnoses Diagnosis Muscle spasm Spasm of muscle Seasonal allergic rhinitis, unspecified trigger documented in this encounter Additional Health Concerns Assessment Noted Time PHQ-9 Depression Total Score: 5 11/17/19 23 10:04 AM EDT documented as of this encounter Care Teams Third Shift Lieutenant Relationship Specialty Start Date End Date Brandie Evangelista DO 230 [place] [address] PCP - General Family Medicine 04/04/13 Ed Evans, PharmD 230 [place] [address] Pharmacist Internal Medicine 12/10/22 07/04/23 Laney Jha 01/26/18 documented as of this encounter
--- OUTSIDE RECORDS SUMMARY | 2024-09-13 14:05 | XMS_ITS | Encounter Summary ---
Author Organization [employer] Address [address] [facility] 7t [place] [address] Care Team Providers Care Molder Vacuum Name Role Phone Brandie Evangelista DO Primary Care Provider + [phone] Reason for Visit * Reason Comments Med Refill Encounter Details Date Type Department Care Team ([facility] st Contact Info) Description 07/13/2023 Refill [facility] MEDICINE 230 [place], [place] [phone] Barndie Evangelista DO 230 [place], [place] [phone] Social History Tobacco Use Types Packs/Day Years [...] documented as of this encounter Care Teams Molder Vacuum Relationship Specialty Start Date End Date Brandie Evangelista DO 230 [place] [address] PCP - General Family Medicine 04/04/13 Laney hJa 01/26/18 documented as of this encounter
--- OUTSIDE RECORDS SUMMARY | 2024-09-13 14:05 | XMS_ITS | Encounter Summary ---
Author Organization [employer] Address [address] [facility] 7t [place] [address] Care Team Providers Care Director Behavioral Health Name Role Phone Brandie Evangelista DO Primary Care Provider + [phone] Ed Evans PharmD Unavailable Unavail able Reason for Visit * Reason Comments Med Refill Encounter Details Date Type Department Care Team ([facility] st Contact Info) Description 06/23/2023 Refill [facility] MEDICINE 230 [place] [address] Brandie Evangelista DO [address] [place] [address] Chest pain, unspecified type Social History Tobacco [...] documented as of this encounter Care Teams Director Behavioral Health Relationship Specialty Start Date End Date Brandie Evangelista DO 230 [place] [address] PCP - General Family Medicine 04/04/13 Ed Evans, Getachew [address] [place] [address] Pharmacist Internal Medicine 12/10/22 07/04/23 Laney Jha 01/26/18 documented as of this encounter
--- OUTSIDE RECORDS SUMMARY | 2024-09-13 14:05 | XMS_ITS | Encounter Summary ---
Author Organization [employer] Address [address] [facility] 7t [place] [address] Care Team Providers Care Assistant Auto Center Manager Name Role Phone Brandie Evangelista DO Primary Care Provider + [phone] Reason for Visit * Reason Comments Med Refill Encounter Details Date Type Department Care Team ([facility] st Contact Info) Description 05/03/2024 Refill [facility] MEDICINE 230 [place] [address] Brandie Evangelista DO 230 [place], [place] [phone] Social History Tobacco Use Types Packs/Day Years [...] Blood Pressure 194/104(08/30 2:52 PM EST) No Dellogmeghan, Ed, PharmD Hemoglobin A1c < 7 Result Component 6.7( 12:07 PM EST) No Dellogono Ed, PharmD documented as of this encounter Visit Diagnoses Not on filedocumented in this encounter Additional Health Concerns Assessment Noted Time PHQ-9 Depression Total Score: 16 024 9:38 AM EDT documented as of this encounter Care Teams Assistant Auto Center Manager Relationship Specialty Start Date End Date Brandie Evangelista DO [address] [place] [address] PCP - General Family Medicine 04/04/13 Laney Jha 01/26/18 documented as of this encounter
--- OUTSIDE RECORDS SUMMARY | 2024-09-13 14:05 | XMS_ITS | Encounter Summary ---
Author Organization [employer] Address [address] [facility] 7t [place] [address] Care Team Providers Care Safety Assistant Name Role Phone Brandie Evangelista DO Primary Care Provider + [phone] Reason for Visit * Reason Comments Med Refill Encounter Details Date Type Department Care Team ([facility] st Contact Info) Description 10/27/2023 Refill [facility] MEDICINE 230 [place], [place] [phone] Brandie Evangelista DO 230 [place], [place] [phone] Anemia, unspecified type Social History Tobacco Use Types [...] Blood Pressure 194/104(08/30 2:52 PM EST) No DelEd luong, PharmD Hemoglobin A1c < 7 Result Component 6.7( 12:07 PM EST) No DellogEd christianson, PharmD documented as of this encounter Visit Diagnoses Diagnosis Anemia, unspecified type documented in this encounter Additional Health Concerns Assessment Noted Time PHQ-9 Depression Total Score: 16 024 9:38 AM EDT documented as of this encounter Care Teams Safety Assistant Relationship Specialty Start Date End Date Brandie Evangelista DO [address] [place] [address] PCP - General Family Medicine 04/04/13 Laney Jha 01/26/18 documented as of this encounter
--- OUTSIDE RECORDS SUMMARY | 2024-09-13 14:05 | XMS_ITS | Encounter Summary ---
Author Organization [employer] Address [address] [facility] 7t [place] [address] Care Team Providers Care Casting And Locker Room Servicer Name Role Phone Brandie Evangelista DO Primary Care Provider + [phone] Reason for Visit * Reason Comments Med Refill Encounter Details Date Type Department Care Team ([facility] st Contact Info) Description 08/13/[address] [facility] MEDICINE 230 [place], [place] [phone] Brandie Evangelista DO 230 [place], [place] [phone] Chronic obstructive pulmonary disease, unspecified COPD type (CMS/HCC) Social History Tobacco Use Types Packs/Day Years [...] as of this encounter Visit Diagnoses Diagnosis Chronic obstructive pulmonary disease, unspecified COPD type (CMS/HCC) documented in this encounter Additional Health Concerns Assessment Noted Time PHQ-9 Depression Total Score: 16 024 9:38 AM EDT documented as of this encounter Care Teams Casting And Locker Room Servicer Relationship Specialty Start Date End Date Brandie Evangelista DO 230 [place] [address] PCP - General Family Medicine 04/04/13 Laney Jha 01/26/18 documented as of this encounter
--- OUTSIDE RECORDS SUMMARY | 2024-09-13 14:05 | XMS_ITS | Encounter Summary ---
Author Organization [employer] Address [address] [place] [address] 7t [place] [address] Care Team Providers Care Fire And Safety Helper Name Role Phone Brandie Evangelista DO Primary Care Provider +1 [phone] Ed Evans PharmD Unavailable Unavail able Encounter Details Date Type Department Care Team (Late st Contact Info) Description 11/17/2022 Orders Only [facility] [address] [place], [place] [phone] Ed Evans, PharmD Social History Tobacco Use Types Packs/Day Years [...] Orientation Straight 05/25/2022 10 :14 AM EDT COVID-19 Exposure Response Date Recorded In the last 10 days, have yo u been in contact with someone who was confirmed or suspected to have Coronavirus/COVID-19? No / Unsure 11/16/2022 9:53 AM EDT documented as of this encounter Plan of Treatment Not on file documented as of this encounter Visit Diagnoses Not on filedocumented in this encounter Additional Health Concerns Assessment Noted Time PHQ-9 Depression Total Score: 5 11/17/19 23 10:04 AM EDT documented as of this encounter Care Teams Fire And Safety Helper Relationship Specialty Start Date End Date Brandie Evangelista DO 230 [place] [address] PCP - General Family Medicine 04/04/13 Ed Evans, PharmD [address] [place] [address] Pharmacist Internal Medicine 12/10/22 07/04/23 Laney Jha 01/26/18 documented as of this encounter
--- OUTSIDE RECORDS SUMMARY | 2024-09-13 14:05 | XMS_ITS | Encounter Summary ---
Author Organization [employer] Address [address] [facility] 7t [place] [address] Care Team Providers Care Collections Technician Name Role Phone Brandie Evangelista DO Primary Care Provider + [phone] Reason for Visit * Reason Comments Med Refill Encounter Details Date Type Department Care Team ([facility] st Contact Info) Description 08/25/2024 Refill [facility] MEDICINE 230 [place], [place] [phone] Brandie Evangelista DO 230 [place], [place] [phone] Vitamin D deficiency Social History Tobacco Use Types Packs/Day Years [...] as of this encounter Visit Diagnoses Diagnosis Vitamin D deficiency documented in this encounter Additional Health Concerns Assessment Noted Time PHQ-9 Depression Total Score: 16 024 9:38 AM EDT documented as of this encounter Care Teams Collections Technician Relationship Specialty Start Date End Date Brandie Evangelista DO [address] [place] [address] PCP - General Family Medicine 04/04/13 Laney Jha 01/26/18 documented as of this encounter
--- OUTSIDE RECORDS SUMMARY | 2024-09-13 14:05 | XMS_ITS | Encounter Summary ---
Author Organization [employer] Address [address] [place] [address] 7t [place] [address] Care Team Providers Care Reconciliation Coordinator Name Role Phone Brandie Evangelista DO Primary Care Provider +1 [phone] Ed Evans PharmD Unavailable Unavail able Reason for Visit * Reason Comments Med Refill Encounter Details Date Type Department Care Team (Late st Contact Info) Description 04/26/2023 Refill [facility] MEDICINE [address] [place] [address] Brandie Evangelista DO [address] [place] [address] Swelling of both lower extremities Social History Tobacco Use Types Packs/Day Years [...] Blood Pressure 194/104(08/30 2:52 PM EST) No DellogonoSrinivasis, PharmD Hemoglobin A1c < 7 Result Component 6.7( 12:07 PM EST) No DelEd luong, PharmD documented as of this encounter Visit Diagnoses Diagnosis Swelling of both lower extremities documented in this encounter Additional Health Concerns Assessment Noted Time PHQ-9 Depression Total Score: 5 11/17/19 23 10:04 AM EDT documented as of this encounter Care Teams Reconciliation Coordinator Relationship Specialty Start Date End Date Brandie Evangelista DO [address] [place] [address] PCP - General Family Medicine 04/04/13 Ed Evans PharmD [address] [place] [address] Pharmacist Internal Medicine 12/10/22 07/04/23 Laney Jha 01/26/18 documented as of this encounter
--- OUTSIDE RECORDS SUMMARY | 2024-09-13 14:05 | XMS_ITS | Encounter Summary ---
Author Organization [employer] Address [address] [place] [address] 7t [place] [address] Care Team Providers Care Bus Dispatcher [employer] Name Role Phone Brandie Evangelista DO Primary Care Provider +1 [phone] DelEd luong PharmD Unavailable Unavail able Reason for Visit * Reason Comments Med Refill Encounter Details Date Type Department Care Team ([facility] st Contact Info) Description 04/12/2023 Refill [facility] [address] [place] [address] Brandie Evangelista DO 230 [place] [address] Chronic obstructive pulmonary disease, unspecified COPD type [...] documented as of this encounter Care Teams Bus Dispatcher [employer] Relationship Specialty Start Date End Date Brandie Evangelista DO 230 [place] [address] PCP - General Family Medicine 04/04/13 Ed Evans PharmD 230 [place] [address] Pharmacist Internal Medicine 12/10/22 07/04/23 Laney Jha 01/26/18 documented as of this encounter
--- OUTSIDE RECORDS SUMMARY | 2024-09-13 14:05 | XMS_ITS | Encounter Summary ---
Author Organization [employer] Address 75 [facility] 7t [place] [address] Care Team Providers Care Paramedic Name Role Phone Brandie Evangelista DO Primary Care Provider + [phone] Reason for Visit * Reason Onset Date Comments Med Refill 07/27/2024 Encounter Details Date Type Department Care Team ([facility] st Contact Info) Description 07/27/2024 Telephone [facility] MEDICINE 230 [place] [address] Brandie Evangelista DO [address] [place], [place] [phone] Med Refill Social History Tobacco Use Types Packs/Day Years [...] encounter Miscellaneous Notes * Telephone Encounter - Brandie Thomas LPN - 07/27/2024 11:27 AM EST Script sent to [facility] #[id number] on 12/13/23 with 11 refills. * Telephone Encounter - Fernanda Maurice - 07/27/2024 11:23 AM EST TC from Visiting nurse Rosario requesting medication refill. Medications needing refill : glucose blood (OneTouch Ultra) test strip To be sent to: [facility]/pharmacy #[id number] documented in this encounter Plan of Treatment [...] documented as of this encounter Care Teams Paramedic Relationship Specialty Start Date End Date Brandie Evangelista DO [address] [place] [address] PCP - General Family Medicine 04/04/13 Laney Jha 01/26/18 documented as of this encounter
--- OUTSIDE RECORDS SUMMARY | 2024-09-13 14:05 | XMS_ITS | Encounter Summary ---
Author Organization [employer] Address [address] [place] [address] 7t [place] [address] Care Team Providers Care Stacker And Sorter Operator Name Role Phone Brandie Evangelista DO Primary Care Provider + [phone] Reason for Visit * Reason Comments Med Refill Encounter Details Date Type Department Care Team (Late st Contact Info) Description 08/14/2024 Refill [facility] MEDICINE 230 [place] [address] Brandie Evangelista DO 230 [place], [place] [phone] Anemia, unspecified type; Chest pain, unspecified type; Swelling of both lower extremities; Type 2 diabetes mellitus with other specified complication, without long-term current use of insulin ([facility]) Social History Tobacco Use Types Packs/Day Years [...] encounter Visit Diagnoses Diagnosis Anemia, unspecified type Chest pain, unspecified type Swelling of both lower extremities Type 2 diabetes mellitus with other specified complication, without long-term current use of insulin ([facility]) documented in this encounter Additional Health Concerns Assessment Noted Time PHQ-9 Depression Total Score: 16 024 9:38 AM EDT documented as of this encounter Care Teams Stacker And Sorter Operator Relationship Specialty Start Date End Date Brandie Evangelista DO [address] [place] [address] PCP - General Family Medicine 04/04/13 Laney Jha 01/26/18 documented as of this encounter
--- OUTSIDE RECORDS SUMMARY | 2024-09-13 14:05 | XMS_ITS | Encounter Summary ---
Author Organization [facility] Address [address] [place] [address] 7t [place] [address] Care Team Providers Care Flying Shear Operator Name Role Phone Brandie Evangelista DO Primary Care Provider +1 [phone] Ed Evans PharmD Unavailable Unavail able Reason for Visit * Reason Onset Date Comments Referral 12/14/2022 Renewal (Endocri nologist) Encounter Details Date Type Department Care Team ([facility] st Contact Info) Description 12/14/2022 Telephone [facility] MEDICINE 230 [place] [address] Brandie Evangelista DO [address] [place] [address] Referral (Renewal (Packager Hand)) Social History Tobacco Use Types Packs/Day Years [...] suspected to have Coronavirus/COVID-19? No / Unsure 12/09/2022 1:10 PM EDT documented as of this encounter Miscellaneous Notes * Telephone Encounter - Jovanna Nichols - 12/14/2022 10:37 AM EDT Tc from patients daughter requesting for a renewal on diagnostics sales developer referral. Referral on nexgen 03/20/21. Referrals Date-N/A Time- N/A Address- [address] [facility] [address] [address] Specialty- Packager Hand Fax: documented in this encounter Plan of Treatment Not on file documented as of this encounter Goals Goal Patient Goal Type Associated Problems Recent Progress Patient-Stated? Author Blood Pressure < 140/90 Blood Pressure 194/104(08/30 2:52 PM EST) No Ed Evans, PharmKeila Hemoglobin A1c < 7 Result Component 6.7( 12:07 PM EST) No Ed Evans, PharmD documented as of this encounter Visit Diagnoses Not on filedocumented in this encounter Additional Health Concerns Assessment Noted Time PHQ-9 Depression Total Score: 5 11/17/19 23 10:04 AM EDT documented as of this encounter Care Teams Flying Shear Operator Relationship Specialty Start Date End Date Brandie Evangelista DO 230 [place] [address] PCP - General Family Medicine 04/04/13 Ed Evans, PharmD 230 [place] [address] Pharmacist Internal Medicine 12/10/22 07/04/23 Laney Jha 01/26/18 documented as of this encounter
--- OUTSIDE RECORDS SUMMARY | 2024-09-13 14:05 | XMS_ITS | Encounter Summary ---
Author Organization [employer] Address 75 [facility] 7t [place] [address] Care Team Providers Care Sugar Reprocess Operator Head Name Role Phone Brandie Evangelista DO Primary Care Provider + [phone] Reason for Visit * Reason Comments Med Refill Encounter Details Date Type Department Care Team ([facility] st Contact Info) Description 05/01/2024 Refill [facility] MEDICINE 230 [place] [address] Brandie Evangelista DO 230 [place], [place] [phone] Social History Tobacco Use Types Packs/Day Years [...] documented as of this encounter Care Teams Sugar Reprocess Operator Head Relationship Specialty Start Date End Date Brandie Evangelista DO [address] [place] [address] PCP - General Family Medicine 04/04/13 Laney Jha 01/26/18 documented as of this encounter
--- OUTSIDE RECORDS SUMMARY | 2024-09-13 14:05 | XMS_ITS | Encounter Summary ---
Author Organization [employer] Address [address] [facility] 7t [place] [address] Care Team Providers Care Grief Counselor Name Role Phone Brandie Evangelista DO Primary Care Provider +[phone] Reason for Visit * Reason Onset Date Comments Durable Medical Equipment 07/28/2024 DME Re quest: Grab Bars Encounter Details Date Type Department Care Team ([facility] st Contact Info) Description 07/28/2024 Telephone [facility] MEDICINE 230 [place] [address] Brandie Evangelista DO 230 [place] [address] Durable Medical Equipment (DME Request: Nargis Cobos) Social History Tobacco Use Types Packs/Day Years [...] encounter Miscellaneous Notes * Telephone Encounter - Ashwini Garcia - 09/06/2024 11:29 AM EST DME RX for Grab Bars generated and placed on providers desk for signature. * Telephone Encounter - Kwabena Garcia - 07/28/2024 2:44 PM EST Tc from [facility] with [facility] Care requesting grab bars for pt, in and around his bathroom and hallways.Pt has been having frequent falls and [facility] feels pt would benefit from grab bars. If any questions you can contact Wesley at [phone]. [facility] Office: [phone]. documented in this encounter Plan of Treatment Not on file documented as of this encounter Goals Goal Patient Goal Type Associated Problems Recent Progress Patient-Stated? Author Blood Pressure < 140/90 Blood Pressure 194/104(08/30 2:52 PM EST) No Dellogono, Ed, PharmD Hemoglobin A1c < 7 Result Component 6.7(02/05/202 5 12:07 PM EST) No Dellogono, Ed, BgD documented as of this encounter Visit Diagnoses Not on filedocumented in this encounter Additional Health Concerns Assessment Noted Time PHQ-9 Depression Total Score: 16 024 9:38 AM EDT documented as of this encounter Care Teams Grief Counselor Relationship Specialty Start Date End Date Brandie Evangelista DO 230 [place] [address] PCP - General Family Medicine 04/04/13 Laney Jha 01/26/18 documented as of this encounter
--- OUTSIDE RECORDS SUMMARY | 2024-09-13 14:05 | XMS_ITS | Encounter Summary ---
Author Organization [employer] Address 75 [facility] 7t [place] [address] Care Team Providers Care Recycling Worker Name Role Phone Brandie Evangelista DO Primary Care Provider + [phone] Reason for Visit * Reason Comments Med Refill Encounter Details Date Type Department Care Team ([facility] st Contact Info) Description 10/27/2023 Refill [facility] MEDICINE 230 [place], [place] [phone] Brandie Evangelista DO 230 [place], [place] [phone] Anemia, unspecified type Social History Tobacco Use [...] documented as of this encounter Care Teams Recycling Worker Relationship Specialty Start Date End Date Brandie Evangelista DO [address] [place] [address] PCP - General Family Medicine 04/04/13 Laney Jha 01/26/18 documented as of this encounter
--- OUTSIDE RECORDS SUMMARY | 2024-09-13 14:05 | XMS_ITS | Encounter Summary ---
Author Organization [employer] Address [address] [facility] 7t [place] [address] Care Team Providers Care Video Production Intern Name Role Phone Brandie Evangelista DO Primary Care Provider + [phone] Reason for Visit * Reason Comments Med Refill Encounter Details Date Type Department Care Team ([facility] st Contact Info) Description 08/09/2023 Refill [facility] MEDICINE 230 [place], [place] [phone] Brandie Evangelista DO 230 [place], [place] [phone] Type 2 diabetes mellitus with other specified complication, without long-term current use of insulin ([facility]); Muscle spasm; Swelling of both lower extremities; Anemia, unspecified type Social History Tobacco Use [...] as of this encounter Visit Diagnoses Diagnosis Type 2 diabetes mellitus with other specified complication, without long-term current use of insulin ([facility]) Muscle spasm Spasm of muscle Swelling of both lower extremities Anemia, unspecified type documented in this encounter Additional Health Concerns Assessment Noted Time PHQ-9 Depression Total Score: 5 11/17/19 23 10:04 AM EDT documented as of this encounter Care Teams Video Production Intern Relationship Specialty Start Date End Date Brandie Evangelista DO 230 [place] [address] PCP - General Family Medicine 04/04/13 Laney Jha 01/26/18 documented as of this encounter
--- OUTSIDE RECORDS SUMMARY | 2024-09-13 14:05 | XMS_ITS | Encounter Summary ---
Author Organization [facility] Address [address] [place] [address] [place] [address] Care Team Providers Care Agricultural Extension Educator Name Role Phone Brandie Evangelista DO Primary Care Provider + [phone] Ed Evans PharmD Unavailable Unavail able Reason for Visit * Reason Comments Med Refill Encounter Details Date Type Department Care Team (Late st Contact Info) Description 11/12/2022 Refill [facility] MEDICINE 230 [place] [address] Genesis Martinez MD [address] [place] [address] Social History Tobacco Use Types Packs/Day Years Used Date Smoking Tobacco: Never Assessed Depression Answer Date Recorded Patient Health Questionnaire-9 [...] on filedocumented in this encounter Care Teams Agricultural Extension Educator Relationship Specialty Start Date End Date Brandie Evangelista DO [address] [place] [address] PCP - General Family Medicine 04/04/13 Ed Evans, PharmD [address] [place] [address] Pharmacist Internal Medicine 12/10/22 07/04/23 [facility] 01/26/18 documented as of this encounter
--- OUTSIDE RECORDS SUMMARY | 2024-09-13 14:05 | XMS_ITS | Encounter Summary ---
Author Organization [employer] Address 75 [facility] 7t [place] [address] Care Team Providers Care Furnace Feeder Name Role Phone Brandie Evangelista DO Primary Care Provider + [phone] Ed Evans PharmD Unavailable Unavail able Reason for Visit * Reason Comments Med Refill Encounter Details Date Type Department Care Team ([facility] st Contact Info) Description 06/17/2023 Refill [facility] MEDICINE 230 [place] [address] Brandie Evangelista DO 230 [place] [address] Chest pain, unspecified type Social History Tobacco [...] documented as of this encounter Care Teams Furnace Feeder Relationship Specialty Start Date End Date Brandie Evangelista DO 230 [place] [address] PCP - General Family Medicine 04/04/13 Ed Evans, Getachew [address] [place] [address] Pharmacist Internal Medicine 12/10/22 07/04/23 Laney Jha 01/26/18 documented as of this encounter
--- OUTSIDE RECORDS SUMMARY | 2024-09-13 14:05 | XMS_ITS | Encounter Summary ---
Author Organization [employer] Address [address] [facility] 7t [place] [address] Care Team Providers Care Hoop Punch Operator Helper Name Role Phone Brandie Evangelista DO Primary Care Provider + [phone] Reason for Visit * Reason Onset Date Comments Pre-op Exam 04/19/2024 Encounter Details Date Type Department Care Team ([facility] st Contact Info) Description 04/19/2024 Telephone [facility] MEDICINE 230 [place], [place] [phone] Brandie Evangelista DO 230 [place], [place] [phone] Pre-op Exam Social History Tobacco Use Types Packs/Day Years [...] encounter Miscellaneous Notes * Telephone Encounter - Lauro Kowalski - 04/19/2024 3:33 PM EDT Tc from patient calling to reschedule missed Pre-op appt from 04/19 documented in this encounter Plan of Treatment [...] documented as of this encounter Care Teams Hoop Punch Operator Helper Relationship Specialty Start Date End Date Brandie Evangelista DO [address] [place] [address] PCP - General Family Medicine 04/04/13 Laney Jha 01/26/18 documented as of this encounter
--- OUTSIDE RECORDS SUMMARY | 2024-09-13 14:05 | XMS_ITS | Encounter Summary ---
Author Organization [employer] [facility] Address [address] [place] [address] 7 [place] [address] Care Team Providers Care Pipelayer Name Role Phone Brandie Evangelista DO Primary Care Provider +[phone] Ed Evans PharmD Unavailable Unavail able Encounter Details Date Type Department Care Team (Late st Contact Info) Description 11/13/2022 Abstract [facility] MEDICINE 230 [place] [address] Brandie Evangelista DO 230 [place], [place] [phone] Social History Tobacco Use Types Packs/Day Years [...] on filedocumented in this encounter Care Teams Pipelayer Relationship Specialty Start Date End Date Brandie Evangelista DO 230 [place], [place] [phone] PCP - General Family Medicine 04/04/13 Ed Evans, BgD [address] [place] [address] Pharmacist Internal Medicine 12/10/22 07/04/23 Laney Jha 01/26/18 documented as of this encounter
--- OUTSIDE RECORDS SUMMARY | 2024-09-13 14:05 | XMS_ITS | Encounter Summary ---
Author Organization [employer] Address 75 [facility] 7t [place] [address] Care Team Providers Care Drum Sander Offbearer Name Role Phone Brandie Evangelista DO Primary Care Provider + [phone] Reason for Visit * Reason Comments Med Refill Encounter Details Date Type Department Care Team ([facility] st Contact Info) Description 10/27/2023 Refill [facility] MEDICINE 230 [place] [address] Dacia Baez MD 230 [place], [place] [phone] Social History Tobacco Use Types Packs/Day Years [...] documented as of this encounter Care Teams Drum Sander Offbearer Relationship Specialty Start Date End Date Brandie Evangelista DO [address] [place] [address] PCP - General Family Medicine 04/04/13 Laney Jha 01/26/18 documented as of this encounter
--- OUTSIDE RECORDS SUMMARY | 2024-09-13 14:05 | XMS_ITS | Encounter Summary ---
Author Organization [employer] Address [address] [place] [address] 7t [place] [address] Care Team Providers Care Technology Integration Specialist Name Role Phone Brandie Evangelista DO Primary Care Provider + [phone] Reason for Visit * Reason Comments Med Refill Encounter Details Date Type Department Care Team (Late st Contact Info) Description 07/03/2024 Refill [facility] MEDICINE 230 [place] [address] Brandie Evangelista DO 230 [place], [place] [phone] Anemia, unspecified type; Swelling of both lower extremities; Type 2 diabetes mellitus with other specified complication, without long-term current use of insulin ([facility]); Chest pain, unspecified type Social History Tobacco [...] encounter Visit Diagnoses Diagnosis Anemia, unspecified type Swelling of both lower extremities Type 2 diabetes mellitus with other specified complication, without long-term current use of insulin ([facility]) Chest pain, unspecified type documented in this encounter Additional Health Concerns Assessment Noted Time PHQ-9 Depression Total Score: 16 024 9:38 AM EDT documented as of this encounter Care Teams Technology Integration Specialist Relationship Specialty Start Date End Date Brandie Evangelista DO [address] [place] [address] PCP - General Family Medicine 04/04/13 Laney Jha 01/26/18 documented as of this encounter
--- OUTSIDE RECORDS SUMMARY | 2024-09-13 14:05 | XMS_ITS | Encounter Summary ---
Author Organization [employer] Address [address] [place] [address] 7t [place] [address] Care Team Providers Care Tnt Line Supervisor Name Role Phone Brandie Evangelista DO Primary Care Provider +1 [phone] Ed Evans PharmD Unavailable Unavail able Reason for Visit * Reason Comments Med Refill Encounter Details Date Type Department Care Team ([facility] st Contact Info) Description 03/02/2023 Refill [facility] MEDICINE 230 [place] [address] Brandie Evangelista DO 230 [place] [address] Muscle spasm Social History Tobacco Use Types Packs/Day Years [...] Diagnoses Diagnosis Muscle spasm Spasm of muscle documented in this encounter Additional Health Concerns Assessment Noted Time PHQ-9 Depression Total Score: 5 11/17/19 23 10:04 AM EDT documented as of this encounter Care Teams Tnt Line Supervisor Relationship Specialty Start Date End Date Brandie Evangelista DO 230 [place] [address] PCP - General Family Medicine 04/04/13 Ed Evans PharmD 230 [place] [address] Pharmacist Internal Medicine 12/10/22 07/04/23 Laney Jha 01/26/18 documented as of this encounter
--- OUTSIDE RECORDS SUMMARY | 2024-09-13 14:05 | XMS_ITS | Encounter Summary ---
Author Organization [employer] Address [address] [facility] 7t [place] [address] Care Team Providers Care Studio Receptionist Name Role Phone Brandie Evangelista DO Primary Care Provider + [phone] Reason for Visit * Reason Comments Med Refill Encounter Details Date Type Department Care Team ([facility] st Contact Info) Description 04/03/2024 Refill [facility] MEDICINE 230 [place], [place] [phone] Brandie Evangelista DO 230 [place], [place] [phone] Seasonal allergic rhinitis, unspecified trigger Social History [...] Blood Pressure 194/104(08/30 2:52 PM EST) No DellogEd christianson, PharmD Hemoglobin A1c < 7 Result Component 6.7( 12:07 PM EST) No DellogonoEd, PharmD documented as of this encounter Visit Diagnoses Diagnosis Seasonal allergic rhinitis, unspecified trigger documented in this encounter Additional Health Concerns Assessment Noted Time PHQ-9 Depression Total Score: 16 024 9:38 AM EDT documented as of this encounter Care Teams Studio Receptionist Relationship Specialty Start Date End Date Brandie Evangelista DO [address] [place] [address] PCP - General Family Medicine 04/04/13 Laney Jha 01/26/18 documented as of this encounter
--- OUTSIDE RECORDS SUMMARY | 2024-09-13 14:06 | XMS_ITS ---
Author Organization [facility] Address [address] [place] [address] Care Team Providers Care Editorial Writer Name Role Phone Brandie Evangelista M.D. Primary Care Provider Kiara vailable Dennys Kimbrough Unavailable [phone] REASON FOR VISIT screening,hx polyps Encounters Encounter Location Date Provider Diagnosis [facility] Outpatient [address] [place] [phone] 01/12/2024 Dennys Kimbrough PLAN OF TREATMENT Next Appt Details Provider Name:Dennys Kimbrough , 10/18/2024 11:20:00 AM, [address] [place] [address], [phone],
--- OUTSIDE RECORDS SUMMARY | 2024-09-13 14:06 | XMS_ITS | Patient Health Record ---
Author Organization [facility] Address [address] [place] [address] Care Team Providers Care Senior Account Representative Name Role Phone Brandie Evangelista M.D. Primary Care Provider Kiara annabellelisa Kimbrough Dennys Unavailable [phone] ALLERGIES No Known Allergies RESULTS Component Value Reference Range Notes Glucose, Whole Blood Reviewed date:10/04/2023 10:26:37 PM Interpretation: Performing Lab:[facility], [address] [place] [address] Notes/Report: Glucose, Whole Blood 194 60-115 mg/dL METER # : [id number] REASON FOR REFERRAL No Information MEDICATIONS Medication [...] malignant neoplasm of colon (Z12.11) Active confirmed 560672911 Problem History of adenomatous polyp of colon (Z86.010) Active confirmed 266291980 Problem Encounter for other preprocedural examination (Z01.818) Active confirmed Pre-procedure evaluation check (406881702) Problem Long-term use of aspirin therapy (Z79.82) Active confirmed 215298461 Problem Chronic GERD (K21.9) Active confirmed Gastroesophagea l reflux disease (disorder) (148374445) Problem Personal history of adenomatous and serrated colon polyps (Z86.0101) Active confirmed VITAL SIGNS Temperature 98.6 degrees Fahrenheit 07/12/2024 Blood pressure diastolic 00 mm Hg 07/12/2024 Height 68.5 in 07/12/2024 Blood pressure systolic 000 mm Hg 07/12/2024 Weight 229 lbs 07/12/2024 BMI 34.31 kg/m2 07/12/2024 Encounters Encounter Location Date Provider Diagnosis [facility] [place] [address] [place], [place] [phone] 10/04/2023 Dennys Kimbrough [facility] [place] [address] [place], [place] [id number] 01/12/2024 Dennys Kimbrough [facility] [address] [place] [phone] 07/12/2024 Dennys Kimbrough History of adenomato us polyp of colon Z86.010 ; Encounter for other preprocedural examination Z01.818 ; Encounter for screening for malignant neoplasm of colon Z12.11 ; Long-term use of aspirin therapy Z79.82 and Chronic GERD K21.9 [facility] [address] [place] [phone] 10/17/2023 Dennys Kimbrough [facility] [address] [place] [phone] 01/10/2024 Dennys Kimbrough [facility] [address] [place] [phone] 01/11/2024 Dennys Kimbrough ASSESSMENTS Encounter Date Diagnosis [...] Provider Name:Dennys Kimbrough , 10/18/2024 11:20:00 AM, [address] [place] [address] , [place], [place], [phone], Insurance Providers Payer Name Payer Address Payer Phone Subscriber Number Group Number Insured Name Patient Relationship to Insured Coverage Start Date Coverage End Date [facility] [address] Attn Claims PHILLY Har[place] [id number] PAUL CONNELL Self - patient is the insured MEDICAL (GENERAL) HISTORY Medical History History ICD Code HTN GERD--EGD in 2009--small HH, no sig. esophagitis nor Scott's--Gastritis, but no H.pylori Asthma NIDDM Denies LA,CVA,renal disease Depression Hypothyroidism Hyperlipidemia Tubular adenomas removed in 2006 and 02/2012--also noted to have diverticulosis and internal hemorrhoids Sleep apnea--uses CPAP Describes [place] [facility] [place] Negative colonoscopy in 05/2017 Surgical History Surgery Date(Month/Year) Shoulder surgery Skull surgery [facility] TURP 04/2024
--- OUTSIDE RECORDS SUMMARY | 2024-09-13 14:06 | XMS_ITS | Data Portability ---
Author Organization [employer] [facility] - [facility] Address [address] [place] [phone] Care Team Providers Care Pst Supervisor Name Role Phone BETSYTWILADANE Primary Care Provider Assessment Encounter Date Assessment Date Assessment LastModified by Organization Details LastModified Time 03/24/2023 03/24/2023 I provided real -time medical direction via phone for this encounter, and was available for additional phone based assistance as needed. I have reviewed and agree with the Assessment and Plan as documented by the Stakes Player. Patient given the opportunity to ask questions. Medic spoke to the son via phone at my request and explained that med reconciliation and changing medications or removing medications that are prescribed for patient is beyond the purview of [facility] and this is something that needs to be done in conjunction with his PCP -I reached out to [facility] to email the healthcare economics manager regarding the need to do this with the PCP please ever. I advised if develops CP/severe SOB/turning blue/uncontrolled n/v/d or black/bloody emesis or stool/ AMS/ syncope/ hi fever to call 911- patient verbalized understanding of instructions to the medic [email or web address] Not available 03/24/2023 16:21:35 Plan of Treatment Reminders Order Date Submit Date Provider Last Modified By Organization Details Last Modified Time Details Appointments None recorded. Lab BMP, serum or plasma 2022 023 [email or web address] 0 [facility], [address] [place] [address], [phone], 13:44:16 Referral None recorded. Procedures None recorded. Surgeries None recorded. Imaging None recorded. Medication Orders sodium chloride 0.9 % intravenous solution 2022 023 [email or web address] 0 Not available 13:44:16 Patient TargetsNo targets recorded. Patient Instructions Encounter Date Encounter Id Patient Instructions Last Modified By Organization Details Last Modified Time 03/24/2023 [id number] orthostatic vitals* - see vs [email or web address] Not available 03/24/2023 13:44:16 Reason for Referral None Reported. Results Created Date Observation Date Name Description Value Unit Range Abnormal Flag Note LastModifiedBy Organization Detail LastModifiedTime 03/24/20 23 03/24/2023 BMP, serum or plasm a BUN 11 Not Available Main - Ins [address], [address], 03/24/2023 13:22:56 03/24/20 23 03/24/2023 BMP, serum or plasm a Ca Ionize d calciu m 1.25 Not Available Main - [address], [address], 03/24/2023 13:22:56 03/24/20 23 03/24/2023 BMP, serum or plasm a CI- 100 Not Available Main - Ins [address], [address], 03/24/2023 13:22:56 03/24/20 23 03/24/2023 BMP, serum or plasm a CRE 0.9 Not Available Main - Ins [address], [address], 03/24/2023 13:22:56 03/24/20 23 03/24/2023 BMP, serum or plasm a GLU 231 Not Available Main - Ins [address], [address], 03/24/2023 13:22:56 03/24/20 23 03/24/2023 BMP, serum or plasm a K+ 3.8 Not Available Main - Ins [address], [address], 03/24/2023 13:22:56 03/24/20 23 03/24/2023 BMP, serum or plasm a Na+ 137 Not Available Main - Ins [address], [address], 03/24/2023 13:22:56 03/24/20 23 03/24/2023 BMP, serum or plasm a tCO2 25 Not Available Main - Ins [address], [place], [address], 03/24/2023 13:22:56 Result Notes None recorded. Medical [...] Diagnosis/Indication Diagnosis SNOMED-CT Code Diagnosis ICD10 Code Diagnosis Note [id number] Merry Tyler MD Main - [facility] [address] [place] [phone] 03/24/2023 13:08:46 03/24/2023 23:58:29 Lightheadedness [id number] R42 He was dizzy yesterday not today-Labs good but since was orthostati c will give 1 L normal saline-sta tus post normal saline seated blood pressure is 177/92 with a regular pulse of 64 and an oxygen saturation of 98%/skin ending: BP is 173/95, pulse of 70 O2 sat 98% and patient denies dizziness- he is alert and no longer orthostati c-advised the patient to increase oral hydration verbalized understand ing Health Concerns Section Related Observation LastModified by Organization Detai ls LastModified Time None Recorded Concern Status LastModified by Organization Details LastModified Time None Recorded Advance Directives Directive None Recorded Payers Encounter Date Sequence Insurance Name Policy Number Policy Denson Covered Member ID Denson Member ID Guarantor Name 03/24/2023 1 [facility] - DOS ON OR AFTER 2022 - DUAL ELIGIBLE - LONGTERM OPTIONS AND ONE CARE (MEDICARE REPLACEMENT/ADV ANTAGE - HMO) Emory Cui [id number] Emory Cui Notes Date Note Type Note [...] .................. .................. .................. .................. .................. .................. ............... Stakes Player Note From Magdy Drake: Per [facility]: Family [...] assessment preformed found pt orthostatic, following called [facility] with report. P: [facility] Dr. Tyler was called and given report, Dr. Tyler ordered chem8 labs POC, and then once results are received will review with [facility]. Following chem8 Called Dr. Tyler with results of POC chem8 ordered 1 liter of normal saline to be given for dehydration and dizziness then following retake orthostatic bps and call with results. Also Dr. Tyelr wants pt to make an appointment with PCP with son, son wants to reconcile pts medications which can be done with PCP. Red flags discussed [facility] clear. [facility] Lab Orders: BMP, serum or plasma: Performed .................. .................. .................. .................. .................. .................. .................. ............... Disposition: Fulfilled Merry Tyler MD [address] [facility],[address], [place], [address], JULIET IQBAL 03/24/2023 16:21:59
--- OUTSIDE RECORDS SUMMARY | 2024-09-13 14:06 | XMS_ITS | Encounter Summary ---
Author Organization [employer] [facility] Address [address] [place] [address] [address] [place] [address] Care Team Providers Care Coping Machine Assembler Name Role Phone Brandie Evangelista DO Primary Care Provider + [phone] Ed Evans PharmD Unavailable Unavail able Reason for Visit * Reason Onset Date Comments Appointment Request 09/29/2022 [facility] Loss of Consciousness Form 09/29/2022 I called the pt to ask if he picked up a new form at the [facility], because the one that was previously brought to HIM is outdated. Sheryl, his BASEBALL CLUB MANAGER, answered and stated that he has not picked one up, because he thought that the last one that was brought in was still at the forms dept. I informed her that the form has been filed in his chart because it is outdated, therefore he needs to provide a new form. A new form will be printed out from the [facility] website, and the pt will come in to sign a new release. Encounter Details Date Type Department Care Team (Late st Contact Info) Description 09/29/2022 Telephone [facility] MEDICINE [address] [place], [place] [phone] Brandie Evangelista DO [address] [place], [place] [phone] Appointment Request; [facility] Loss of Consciousness Form (I called the pt to ask if he picked up a new form at the [facility], because the one that was previously brought to HIM is outdated. Sheryl, his BASEBALL CLUB MANAGER, answered and stated that he has not picked one up, because he thought that the last one that was brought in was still at the forms dept. I informed her that the form has been filed in his chart because it is outdated, therefore he needs to provide a new form. A new form will be printed out from the [facility] website, and the pt will come in to sign a new release.) Social History Tobacco Use Types Packs/Day Years Used Date Smoking Tobacco: Never Assessed Sex and Gender Information Value Date Recorded Sex Assigned at Male 05/25/2022 10:14 AM EDT Legal Sex Male 10:14 AM EDT Gender Identity Male 05/25/2022 10:14 AM EDT Sexual Orientation Straight 05/25/2022 10 :14 AM EDT documented as of this encounter Miscellaneous Notes * Telephone Encounter - Carlos Alberto Yancey - 09/29/2022 4:09 PM EST Tc from pt requesting to r/s appt on 09/29/22 ( rv dm 30 min per PCP ) documented in this encounter Plan of Treatment Not on file documented as of this encounter Visit Diagnoses Not on filedocumented in this encounter Care Teams Coping Machine Assembler Relationship Specialty Start Date End Date Brandie Evangelista DO [address] [place] [address] PCP - General Family Medicine 04/04/13 Ed Evans, [place]w [address] [place] [address] Pharmacist Internal Medicine 12/10/22 07/04/23 Laney Jha 01/26/18 documented as of this encounter
== END 2024-09-13 14:34 | disposition home or self-care (01) ==
PROVIDERS: PCP Family Medicine; Visit Provider Internal Medicine
DX: J44.9 Chronic obstructive pulmonary disease, unspecified (principal); J30.9 Allergic rhinitis, unspecified; E66.9 Obesity, unspecified; G47.33 Obstructive sleep apnea (adult) (pediatric)
CPT/HCPCS: 99213

== ENCOUNTER → 2024-09-13 13:42 | Outpatient (BNVA) | payer OTHER, SELFPAY | PROVIDERS: PCP Family Medicine; Visit Provider Internal Medicine | DX: J44.9 Chronic obstructive pulmonary disease, unspecified (principal); E66.9 Obesity, unspecified; G47.33 Obstructive sleep apnea (adult) (pediatric); J30.9 Allergic rhinitis, unspecified; Z68.35 Body mass index [BMI] 35.0-35.9, adult; Z99.89 Dependence on other enabling machines and devices | CPT/HCPCS: 99212 ==

== ENCOUNTER 2024-10-09 14:06 | Outpatient (AMB) | payer OTHER, SELFPAY ==
--- NOTE | 2024-10-09 14:07 | A.OFFVIS_ITS ---
Intake Visit Reasons: 3m/BPH Intake Note: Patient presents to office today for 3 month/BPH Urology Medication:FINASTERIDE Antibiotic Allergy:NONE Blood Thinner:ASPIRIN TODAY'S PVR:168ML'S Foreign Exchange Student Coordinator Required: Yes Foreign Exchange Student Coordinator Name: Jose De [id number] Allergies No Known Allergies Allergy (Verified 09/13/24 14:19) HPI Comments Details: 10/09/24--History of Present Illness The patient is a 74-year-old male presenting with a follow-up for Benign Prostatic Hyperplasia management. He has a history of Transurethral Resection of prostate with good recovery. Current urinary status is good with no significant signs of infection, although he notes occasional mild pain during urination. He's adherent to a high fluid intake. I want him to continue on Finasteride 5 mg, Urinary Symptoms Review - Urine flow described as generally good with occasional slight discomfort or mild pain - Absence of urinary tract infection symptoms; confirmed by current urine analysis Results - UA: No signs of infection 07/27/2024-Emory is a 74-year-old male who is followed for BPH, status post TURP for urinary retention. The patient is here today and states his urination is fine but he is having vertigo. He states he tried getting in touch with his PCP is not able to get an appointment. In review of the chart his vertigo is chronic he is on meclizine. Denies headache. [facility] Medical History Sleep apnea Thyroid disease Depression LUCA (obstructive sleep apnea) Obesity (BMI 30-39.9) Lipoma of neck Coronary artery disease Chronic low back pain Asthma Hyperlipidemia BPH (benign prostatic hyperplasia) Diabetes Personal history of COVID-19 Hypertension Allergic rhinitis COPD (chronic obstructive pulmonary disease) Surgical History History of surgery of head Hx of shoulder surgery Hx of umbilical hernia repair History of surgery Hx of bilateral cataract extraction Hx of cardiac catheterization Hx of circumcision History of esophagogastroduodenoscopy (EGD) H/O colonoscopy Family History Mother No problems noted. Father No problems noted. Social History (Updated 10/16/24 @ 13:11 by Barbara Avalos RN) Household Members: None Housing: Apartment Are you a primary acute care registered nurse to a significant other at home: No Do you presently have visiting nurse or other home services: Yes ([employer] daily) 75 years or older and lives alone: No Alcohol intake: never Patient Tobacco Use Status: Never used Tobacco Advance Directives Date on File: 05/14/20 service: No Review of Systems Const All systems reviewed & are unremarkable except as noted in HPI and below Reports no additional complaints Eyes Reports no additional complaints ENT Reports no additional complaints Card Reports no additional complaints Resp Reports no additional complaints GI Reports no additional complaints Reports as per HPI Musc Reports no additional complaints Skin/Breast Reports system reviewed and no additional complaints, except as documented Neuro Reports no additional complaints Psych Reports no additional complaints Endo Reports no additional complaints Keegan/Lymph Reports no additional complaints Aller/Immun Reports no additional complaints Office Procedures Post Void Residual Post Residual Void Post Void Residual (PVR): 168 57760-Izjd Void Residual by ultrasound Assessment & Plan Assessment & Plan (1) BPH loc w urin obs/LUTS: Code(s): N40.1 - Benign prostatic hyperplasia with lower urinary tract symptoms Category: Medical Plan Continue Proscar. Orders: Orders AMB Urinalysis Automated 10/09/24 Z13.9 - Encounter for screening, unspecified Patient Instructions: The patient had an opportunity to ask questions regarding treatment plan. The patient expressed understanding and agreement with the above treatment plan. The patient is aware they should contact our office by phone for worsening of their current condition or the appearance of new symptoms. Compliance is encouraged with any medications and followup testing that is ordered. It is a privilege to be allowed the opportunity to participate in the urologic care of your patient. If you have any questions or concerns regarding treatment for the above conditions please do not hesitate to contact me. The office telephone contact is [phone]. This note is constructed in part using voice recognition software. While every effort has been made to ensure accuracy warrant server errors may have been included. Yours sincerely, Narda Hernandez MD Scribe Plan - Not visible on output: Patient was informed and verbally consented to the use of an ambient scribe for clinic note documentation during this visit. Coding Level of Care Code Est Pt Level 3 (37766) Diagnoses BPH loc w urin obs/LUTS N40.1 CPT Codes Post Residual Void - PVR CPT Code: 89435-Qigh Void Residual by ultrasound ([id number])
== END 2024-10-09 14:52 | disposition home or self-care (01) ==
LOC: HO.HUSH 14:06
PROVIDERS: PCP Family Medicine; Visit Provider Urology
DX: N40.1 Benign prostatic hyperplasia with lower urinary tract symptoms (principal)
CPT/HCPCS: 99213

== ENCOUNTER → 2024-10-09 14:06 | Outpatient (BNVA) | payer OTHER, SELFPAY | PROVIDERS: PCP Family Medicine; Visit Provider Urology | DX: N40.1 Benign prostatic hyperplasia with lower urinary tract symptoms (principal); Z79.899 Other long term (current) drug therapy | CPT/HCPCS: 51798; 99212 ==

== ENCOUNTER 2024-10-18 09:49 | Day surgery (SDC) | payer OTHER, SELFPAY ==
[2024-10-16 13:07] VITALS: BMI 34.8
--- NOTE | 2024-10-18 11:07 | HO.ANESPROP2 ---
HPI - Anesthesia Eval Consult details Narrative: for colonoscopy. [facility] Active Problems Active Problems: All Active Problems Vertigo (Acute) BPH loc w urin obs/LUTS (Acute) Status post recent transurethral resection of prostate (Acute) GERD (gastroesophageal reflux disease) (Acute) Diabetes (Acute) Hypertension (Acute) Polyarthralgia (Acute) Varicose veins of right lower extremity with inflammation (Acute) History of right cataract surgery (Acute) LUCA (obstructive sleep apnea) (Acute) Obesity (BMI 30-39.9) (Acute) Lipoma of neck (Acute) Coronary artery disease (Acute) Chronic low back pain (Acute) Asthma (Acute) Hyperlipidemia (Acute) BPH (benign prostatic hyperplasia) (Acute) Allergic rhinitis (Acute) COPD (chronic obstructive pulmonary disease) (Acute) Past Medical History Medical History Sleep apnea Thyroid disease Depression LUCA (obstructive sleep apnea) Obesity (BMI 30-39.9) Lipoma of neck Coronary artery disease Chronic low back pain Asthma Hyperlipidemia BPH (benign prostatic hyperplasia) Diabetes Personal history of COVID-19 Hypertension Allergic rhinitis COPD (chronic obstructive pulmonary disease) Family History Family History Mother No problems noted. Father No problems noted. Family history of problems with anesthesia: No Surgical History Surgical History History of surgery of head Hx of shoulder surgery Hx of umbilical hernia repair History of surgery Hx of bilateral cataract extraction Hx of cardiac catheterization Hx of circumcision History of esophagogastroduodenoscopy (EGD) H/O colonoscopy History of Problems with Anesthesia: No Social History Social History (Updated 10/16/24 @ 13:11 by Barbara Avalos RN) Household Members: None Housing: Apartment Are you a primary career coordinator to a significant other at home: No Do you presently have visiting nurse or other home services: Yes (HUMAN RESOURCES TRAINING MANAGER daily) Alcohol intake: never Patient Tobacco Use Status: Never used Tobacco Advance Directives Date on File: 05/14/20 service: No Meds Allergies Allergy/AdvReac Type Severity Reaction Status Date / Time No Known Allergies Allergy Verified 09/13/24 14:19 Active Medications: Current Medications Sodium Biphosphate/Sodium Phosphate (Sodium Phosphate,[place]-Dibasic 133 Ml Enema) 133 ml DE ONCE PRN PRN Reason: Poor Colonoscopy Prep Results Home Medications ?Medication ?Instructions ?Recorded ?Confirmed ?Last Taken ?Type atorvastatin 40 mg tablet 40 mg PO DAILY 10/24/20 10/18/24 05/01/24 History duloxetine 60 mg capsule,delayed 120 mg PO DAILY 10/24/20 10/18/24 05/01/24 History release furosemide 40 mg tablet 40 mg PO DAILY 10/24/20 10/18/24 05/01/24 History gabapentin 100 mg capsule 100 mg PO DAILY Pain 10/24/20 10/18/24 05/01/24 History levothyroxine 75 mcg tablet 75 mcg PO DAILY@0600 10/24/20 10/18/24 05/01/24 History meclizine 25 mg tablet 25 mg PO TID Vertigo 10/24/20 10/18/24 05/01/24 History montelukast 10 mg tablet 10 mg PO BEDTIME 10/24/20 10/18/24 05/01/24 History trazodone 150 mg tablet 150 mg PO BEDTIME PRN Insomnia 10/24/20 10/18/24 05/01/24 History aspirin 81 mg tablet,delayed 1 tab PO DAILY 05/19/21 10/18/24 05/01/24 History release hydralazine 100 mg tablet 100 mg PO TID 05/19/21 10/18/24 05/01/24 History metformin 500 mg tablet 1 tab PO TIDWMEAL 05/19/21 10/18/24 05/01/24 History clonidine HCl 0.2 mg tablet 0.2 mg PO BEDTIME 07/29/22 10/18/24 05/01/24 History acetaminophen 650 mg 650 mg PO TID PRN Pain 04/05/23 10/18/24 05/01/24 History tablet,extended release ascorbic acid (vitamin C) 250 mg 500 mg PO DAILY 04/05/23 10/18/24 05/01/24 History tablet (Vitamin C) bupropion HCl 300 mg 24 hr tablet, 300 mg PO DAILY 04/05/23 10/18/24 05/01/24 History extended release docusate sodium 100 mg capsule 100 mg PO BID 04/05/23 10/18/24 05/01/24 History albuterol sulfate 90 mcg/actuation 2 puff inhalation Q4-6H PRN 06/24/23 10/18/24 05/01/24 History aerosol inhaler (Ventolin HFA) Shortness Of Breath Or Wheezing triamcinolone acetonide 0.1 % 1 appl topical DAILY 06/24/23 10/18/24 05/01/24 History topical ointment metoprolol succinate 200 mg 200 mg PO DAILY 11/16/23 10/18/24 05/01/24 History tablet,extended release 24 hr polyethylene glycol 3350 17 17 g PO DAILY 11/16/23 10/18/24 05/01/24 History gram/dose oral powder budesonide-formoterol HFA 160 2 puff inhalation BID 01/10/24 10/18/24 10/18/24 History mcg-4.5 mcg/actuation aerosol inhaler (Symbicort) cetirizine 10 mg tablet 10 mg PO DAILY 01/10/24 10/18/24 05/01/24 History cholecalciferol (vitamin D3) 50 50 mcg PO DAILY 01/10/24 10/18/24 05/01/24 History mcg (2,000 unit) tablet (Vitamin D3) lqptreop-okj-dpppc acid 0.4 1 tab PO DAILY 01/10/24 10/18/24 05/01/24 History mg-lycopene 300 mcg-lutein 250 mcg tablet (Cerovite Senior) temazepam 30 mg capsule 30 mg PO BEDTIME PRN Insomnia 01/10/24 10/18/24 05/01/24 History tramadol 50 mg tablet 50 mg PO DAILY PRN Pain 01/10/24 10/18/24 05/01/24 History ferrous sulfate 325 mg (65 mg 325 mg PO BID 05/03/24 10/18/24 10/11/24 History iron) tablet (FeroSul) nitroglycerin 0.4 mg sublingual 0.4 mg sublingual NEEDED PRN 05/03/24 10/18/24 05/01/24 History tablet Chest Pain quetiapine 100 mg tablet 100 mg BEDTIME 05/03/24 10/18/24 05/01/24 History albuterol sulfate 2.5 mg/3 mL 2.5 mg continuous nebulization TID 02/19/25 03/26/25 Unknown History (0.083 %) solution for nebulization PRN Shortness Of Breath Or Wheezing isosorbide mononitrate 120 mg 120 mg PO DAILY 10/16/24 10/18/24 Unknown History tablet,extended release 24 hr Exam Height,Weight and Vital Signs: Height 5 ft 8.5 in Weight 105.233 kg Airway Mallampati Class: II TM Dist: <=3cm Neck ROM: Full Heart: ok. see above. Lungs: ok Assessment and Plan Assessment Anesthesia Assessment: Anesthesia Plan Discussed and Chart Reviewed Final Anesthetic Review Family History of Problems with Anesthesia: No History of Problems with Anesthesia: No NPO: Yes ASA Class: III Final Preanesthetic Review: No Changes in Pt Med Stat, Meds/Allgs Chart Reviewed, Consent Obtained/Reviewed and Anes Risks/Benef Reviewed Patient Risk: High Procedure Risk: Low Anesthetic Plan Anesthetic Plan: MAC: and Agree w/ Assess. and Plan Disposition: Standard PACU
[2024-10-18 11:21] VITALS: BMI 33.7
[2024-10-18 11:23] VITALS: BP 185/97; PULSE 74; RESP 20; TEMP 36.6; O2SAT 97
[2024-10-18] MEDS: Lactated Ringers 1,000 ML 100 ML IVCONT (11:52)
[2024-10-18 12:35] VITALS: BP 168/83; PULSE 68; RESP 18; TEMP 36.5; O2SAT 96
--- NOTE | 2024-10-18 12:41 | P.BOP_ITS ---
Brief Operative Note Date of Service: 10/18/24 Pre-op diagnosis: Screening Post-op diagnosis: other (Polyps) Procedure: Colonoscopy to the cecum with hot snare polypectomy x 2, and bx/removal of polyp x 1 at 50cm. Surgeon: Dennys Kimbrough MD Anesthesia: MAC Was an Experimental Box Tester used for this Procedure?: No Estimated blood loss (mL): 2.0 Pathology: other (A. Polyp at 60cm B. Polyp at 50cm C. Polyp at 30cm) Condition: stable Disposition: PACU
[2024-10-18 12:50] VITALS: BP 178/77; PULSE 67; RESP 18; TEMP 36.5; O2SAT 97
--- NOTE | 2024-10-18 13:18 | OP_ITS ---
DATE OF SERVICE: 10/18/2024 SURGEON: Dennys Kimbrough MD INDICATIONS: The patient presents for evaluation of colorectal cancer screening and personal history of tubular adenomas of the colon. Full consent has been obtained from him for this, including risks of bleeding and perforation. PREOPERATIVE DIAGNOSIS: POSTOPERATIVE DIAGNOSIS: PROCEDURE PERFORMED: Colonoscopy to the cecum with hot snare polypectomy x2 and biopsy and removal of polyp. ESTIMATED BLOOD LOSS: COMPLICATIONS: ANESTHESIA: Medication used, monitored anesthesia care. ASSISTANTS: SPECIMENS: PREOPERATIVE DIAGNOSES: Colorectal cancer screening and personal history of tubular adenoma of the colon. POSTOPERATIVE DIAGNOSES: Colorectal cancer screening and personal history of tubular adenoma of the colon, colon polyps, diverticulosis, and internal hemorrhoids. DESCRIPTION OF PROCEDURE: The patient was placed in the left lateral decubitus position. The digital rectal exam revealed no abnormalities. The Olympus video pediatric colonoscope was entered into the rectum and advanced easily to the cecum. Once in the cecum, I did identify normal-appearing cecal pouch with appendiceal orifice and a normal-appearing ileocecal valve. The entire cecum and ileocecal valve appeared normal. There was transillumination of light deep in the right lower quadrant. The scope was slowly withdrawn assessing all mucosal surfaces carefully. Preparation was excellent. At 60 cm was an approximately 8 mm polyp, which was removed by hot snare polypectomy and recovered by suction. The polypectomy site appeared clean, without any sign of residual polyp nor bleeding. At 50 cm was a flat 3 mm polyp, which was biopsied and completely removed with a cold biopsy forceps. At 30 cm was an approximately 8 mm polyp, which was removed by hot snare polypectomy and recovered by suction. The polypectomy site appeared clean, without any sign of residual polyp nor bleeding. I did not visualize any other polyps, colitis, nor angiodysplasia. There was a moderate amount of sigmoid diverticulosis. In the rectum, scope was retroflexed visualizing internal hemorrhoids, but no other pathology. The rectal mucosa appeared normal. Scope was straightened and withdrawn from the patient. He tolerated the procedure well and was returned to the recovery area in stable condition. IMPRESSION: 1. Colon polyps. 2. Diverticulosis. 3. Internal hemorrhoids. PLAN: The results of the pathology will be checked. Given today's findings and his age, I do not think he would need any further screening colonoscopies. He was advised not to use any NSAIDs for 1 week. He was advised not to use any aspirin for 5 days. He was advised that he could resume his iron and his other diabetes regimen and diuretic regimen. He will see me on a p.r.n. basis. MD KEMAL Lockett/ARELY / [phone]
== END 2024-10-18 13:50 | disposition home or self-care (01) ==
PROVIDERS: PCP Family Medicine; Visit Provider Internal Medicine
PROC: 0DJD8ZZ Inspection of Lower Intestinal Tract, Via Natural or Artificial Opening Endoscopic (ICD-10-PCS; CPT 45378; principal; 2024-10-18 11:20)
DX: Z12.11 Encounter for screening for malignant neoplasm of colon (principal); Z86.0101 Personal history of adenomatous and serrated colon polyps; D12.4 Benign neoplasm of descending colon; D12.5 Benign neoplasm of sigmoid colon; K57.30 Diverticulosis of large intestine without perforation or abscess without bleeding; K64.8 Other hemorrhoids; K21.9 Gastro-esophageal reflux disease without esophagitis; I10 Essential (primary) hypertension; E78.5 Hyperlipidemia, unspecified; J45.909 Unspecified asthma, uncomplicated; E11.9 Type 2 diabetes mellitus without complications; N40.0 Benign prostatic hyperplasia without lower urinary tract symptoms; Z79.1 Long term (current) use of non-steroidal anti-inflammatories (NSAID); E03.9 Hypothyroidism, unspecified; E66.9 Obesity, unspecified; Z68.34 Body mass index [BMI] 34.0-34.9, adult; F32.A Depression, unspecified; G47.33 Obstructive sleep apnea (adult) (pediatric); Z79.51 Long term (current) use of inhaled steroids; Z79.82 Long term (current) use of aspirin; Z79.84 Long term (current) use of oral hypoglycemic drugs; Z79.899 Other long term (current) drug therapy; Z99.89 Dependence on other enabling machines and devices; Z98.890 Other specified postprocedural states
CPT/HCPCS: 45385; 45380; 88305; J2003; J2704

== ENCOUNTER 2025-04-12 13:52 | Outpatient (AMB) | payer OTHER, SELFPAY ==
--- NOTE | 2025-04-12 14:13 | MHC.OFFVIS ---
Intake Visit Reasons: 6M follow up Intake Note: Patient presents to office today for 6m follow up Urology Medication:FINASTERIDE Antibiotic Allergy:NONE Blood Thinner:ASPIRIN PVR:80ml Cutter Finisher Required: Yes [facility] Information Interpreted: non-clinical & clinical Allergies No Known Allergies Allergy (Verified 04/12/25 14:15) Medication List - Last Reconciled 04/12/25 by Narda Hernandez MD acetaminophen ER 650 mg PO TID PRN albuterol sulfate 90 mcg/actuation (Ventolin HFA) 2 puffs inhalation Q4-6H PRN albuterol sulfate 2.5 mg continuous nebulization TID PRN ascorbic acid (vitamin C) (Vitamin C) 500 mg PO DAILY aspirin 1 tab PO DAILY Held on 11/23/23. Instructions: Resume on 11/30/23. atorvastatin 40 mg PO DAILY budesonide-formoterol 160-4.5 mcg/actuation (Symbicort) 2 puffs inhalation BID bupropion HCl XL 300 mg PO DAILY cetirizine 10 mg PO DAILY cholecalciferol (vitamin D3) (Vitamin D3) 50 mcg PO DAILY clonidine HCl 0.2 mg PO BEDTIME docusate sodium 100 mg PO BID duloxetine 120 mg PO DAILY ferrous sulfate (FeroSul) 325 mg PO BID finasteride (Proscar) 5 mg PO DAILY 90 days furosemide 40 mg PO DAILY gabapentin 100 mg PO DAILY hydralazine 100 mg PO TID isosorbide mononitrate ER 120 mg PO DAILY levothyroxine 75 mcg PO DAILY@0600 meclizine 25 mg PO TID metformin 1 tab PO TIDWMEAL metoprolol succinate ER 200 mg PO DAILY montelukast 10 mg PO BEDTIME bpynefzl-gyy-SR-lycopen-lutein 0.4 mg-300 mcg- 250 mcg (Cerovite Senior) 1 tab PO DAILY nitroglycerin 0.4 mg sublingual NEEDED PRN polyethylene glycol 3350 17 grams PO DAILY quetiapine 100 mg BEDTIME temazepam 30 mg PO BEDTIME PRN tramadol 50 mg PO DAILY PRN trazodone 150 mg PO BEDTIME PRN triamcinolone acetonide 0.1% 1 appl topical DAILY HPI Comments Details: 04/12/25--Emory is being followed for BPH he presented initially with urinary retention and is status post TURP April 2024. He is prescribed Proscar 5 mg daily. History of Present Illness The patient is a 75-year-old male presenting with a follow-up for Benign Prostatic Hyperplasia (BPH) and H/O-TURP status. Araceli was initially presented with urinary retention in leading to a Transurethral Resection of the Prostate (TURP). Since the procedure, he has been prescribed finasteride 5 mg daily to manage his condition. Currently, Araceli reports no issues with urination, and his urine appears clear, bladder scan PVR 80 mL, indicating effective bladder emptying. Discussed PSA screening to monitor his prostate health. Additionally, Araceli states he recently underwent eye surgery and is not experiencing any pain related to this procedure. Plan 1. Benign Prostatic Hyperplasia (Bph) - Continue finasteride 5 mg daily for BPH management. - Scheduled blood work for prostate monitoring. - Follow-up appointment in 10 months to assess condition and treatment efficacy. 2. Post Transurethral Resection Of The Prostate (Turp) Status - Monitor urinary function and ensure effective bladder emptying. 10/09/24-- The patient is a 74-year-old male presenting with a follow-up for Benign Prostatic Hyperplasia management. He has a history of Transurethral Resection of prostate with good recovery. Current urinary status is good with no significant signs of infection, although he notes occasional mild pain during urination. He's adherent to a high fluid intake. I want him to continue on Finasteride 5 mg, Urinary Symptoms Review - Urine flow described as generally good with occasional slight discomfort or mild pain - Absence of urinary tract infection symptoms; confirmed by current urine analysis Results - UA: No signs of infection 07/27/2024-Emory is a 74-year-old male who is followed for BPH, status post TURP for urinary retention. The patient is here today and states his urination is fine but he is having vertigo. He states he tried getting in touch with his PCP is not able to get an appointment. In review of the chart his vertigo is chronic he is on meclizine. Denies headache. [facility] Medical History Sleep apnea Thyroid disease Depression LUCA (obstructive sleep apnea) Obesity (BMI 30-39.9) Lipoma of neck Coronary artery disease Chronic low back pain Asthma Hyperlipidemia BPH (benign prostatic hyperplasia) Diabetes Personal history of COVID-19 Hypertension Allergic rhinitis COPD (chronic obstructive pulmonary disease) Surgical History History of surgery of head Hx of shoulder surgery Hx of umbilical hernia repair History of surgery Hx of bilateral cataract extraction Hx of cardiac catheterization Hx of circumcision History of esophagogastroduodenoscopy (EGD) H/O colonoscopy Family History Mother No problems noted. Father No problems noted. Social History Household Members: None Housing: Apartment Are you a primary progressive care unit registered nurse to a significant other at home: No Do you presently have visiting nurse or other home services: Yes (MEN'S LOCKER ROOM ATTENDANT daily) 75 years or older and lives alone: No Alcohol intake: never Patient Tobacco Use Status: Never used Tobacco Advance Directives Date on File: 05/14/20 service: No Review of Systems Const All systems reviewed & are unremarkable except as noted in HPI and below Reports no additional complaints Eyes Reports no additional complaints ENT Reports no additional complaints Card Reports no additional complaints Resp Reports no additional complaints GI Reports no additional complaints Reports as per HPI Musc Reports no additional complaints Skin/Breast Reports system reviewed and no additional complaints, except as documented Neuro Reports no additional complaints Psych Reports no additional complaints Endo Reports no additional complaints Keegan/Lymph Reports no additional complaints Aller/Immun Reports no additional complaints Results Reviewed Results Reviewed: Collected: 05/02/24 Location: [facility] Received: 05/03/24 Diagnosis Prostate, transurethral resection: 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 Clinical History Retention of urine, unspecified Microscopic Description Microscopic sections reviewed. Material Received Prostate tissue Collected: 12/18/23 Status: COMP Req#: [id number] Received: 12/18/23 Source: Urine Cath Sp Desc: Quintanilla Cath Subm Dr: Tiffanie Rahman MD Ordered: Urine Culture Procedure Result Verified Urine Culture Final 12/20/23 Organism 1 Klebsiella pneumoniae Quant 50,000 to 100,000 cfu/mL Kleb pneum M.I.C. RX --------- --- Ampicillin >=32 R Ceftriaxone <=0.25 S Gentamicin <=1 S Levofloxacin <=0.12 S Nitrofurantoin 128 R Trimethoprim/Sulfamethoxazole <=20 S Date of Service: 11/17/23 EXAMINATION: CT ABDOMEN AND PELVIS WITHOUT CONTRAST CLINICAL INFORMATION: Pain. Recent Quintanilla catheter placement. COMPARISON: 11/16/2023 TECHNIQUE: Multidetector volumetric imaging was performed from the superior aspect of the liver through the pubic symphysis. Sagittal and coronal reformatted images were obtained on the technologist's workstation. This CT examination was performed using dose optimization techniques as appropriate, variously including the following: *Automated exposure control *Adjustment of mA and/or kV according to patient size (this includes techniques or standardized protocols for targeted exams where dose is matched to indication/reason for exam; i.e. extremities or head) *Use of iterative reconstruction technique DLP: 742 mGy-cm FINDINGS: LUNG BASES: There is scarring at the right lung base. LIVER, GALLBLADDER, AND BILIARY TREE: The liver is normal in size, shape, and attenuation. No focal hepatic lesion or biliary ductal dilatation is present. There has been a prior cholecystectomy. PANCREAS: Unremarkable. SPLEEN: Unremarkable. ADRENAL GLANDS: There is a stable low-density right adrenal lesion. KIDNEYS AND URETERS: The kidneys are again seen to be irregular in contour. Bilateral renal collecting system and ureteral prominence are again seen extending into the urinary bladder. BLADDER: A Quintanilla catheter extends into the urinary bladder. There is heterogeneous dense material within the urinary bladder intermixed with some air lucencies. The urinary bladder is distended. GASTROINTESTINAL TRACT: There are diverticula of the descending colon without diverticulitis. There is no evidence for appendicitis. ABDOMINAL WALL: No significant hernia is appreciated. LYMPH NODES: Normal. VASCULAR: There is atherosclerotic plaque of the abdominal aorta and proximal branches. PELVIC VISCERA: Significant prostate gland hypertrophy is again seen. OSSEOUS STRUCTURES: Unremarkable. IMPRESSION: 1. Quintanilla catheter extends into the urinary bladder. The urinary bladder is distended. There is heterogeneous dense material intermixed with some air lucencies within the urinary bladder which may represent blood products. 2. There is bilateral renal collecting system and ureteral prominence extending into the urinary bladder. 3. Significant prostate gland hypertrophy. 4. Diverticulosis of the descending colon without diverticulitis. 5. Stable low-density right adrenal lesion. Assessment & Plan Assessment & Plan (1) Screening PSA (prostate specific antigen): Code(s): Z12.5 - Encounter for screening for malignant neoplasm of prostate Category: Medical Plan Plan 1. Benign Prostatic Hyperplasia (Bph) - Continue finasteride 5 mg daily for BPH management. - Scheduled blood work for prostate monitoring. PSA - Follow-up appointment in 10 months to assess condition and treatment efficacy. 2. Post Transurethral Resection Of The Prostate (Turp) Status - Monitor urinary function and ensure effective bladder emptying. Orders: Orders AMB Urinalysis Automated Today N40.0 - Benign prostatic hyperplasia without lower urinary tract symptoms PSA,Total (Free>4and<10) Today Z12.5 - Encounter for screening for malignant neoplasm of prostate Medications: Refilled finasteride (Proscar) 5 mg PO DAILY 90 tabs 3RF 90 days Patient Instructions: The patient had an opportunity to ask questions regarding treatment plan. The patient expressed understanding and agreement with the above treatment plan. The patient is aware they should contact our office by phone for worsening of their current condition or the appearance of new symptoms. Compliance is encouraged with any medications and followup testing that is ordered. It is a privilege to be allowed the opportunity to participate in the urologic care of your patient. If you have any questions or concerns regarding treatment for the above conditions please do not hesitate to contact me. The office telephone contact is [phone]. This note is constructed in part using voice recognition software. While every effort has been made to ensure accuracy instructional supervisor errors may have been included. Yours sincerely, Narda Hernandez MD Scribe Plan - Not visible on output: Patient was informed and verbally consented to the use of an ambient scribe for clinic note documentation during this visit. Coding Level of Care Code Est Pt Level 3 (05702) Complex EM visit Add On G2211 Diagnoses Screening PSA (prostate specific antigen) Z12.5
--- OUTSIDE RECORDS SUMMARY | 2025-04-12 15:56 | XMS_ITS | Encounter Summary ---
Author Organization [employer] Address [address] [place] [address] Care Team Providers Care Senior Ux Designer Name Role Phone Brandie Evangelista DO Primary Care Provider [phone] Reason for Visit * Reason Comments Med Refill Encounter Details Date Type Department Care Team ([facility] st Contact Info) Description 04/26/2024 Refill [facility] [address] [place] [address] Brandie Evangelista DO [address], [place] [phone] Social History Tobacco Use Types Packs/Day Years [...] as of this encounter Care Teams Senior Ux Designer Relationship Specialty Start Date End Date Brandie Evangelista DO [address] [place] [id number] PCP - General Family Medicine 04/04/13 Laney Jha 01/26/18 documented as of this encounter
--- OUTSIDE RECORDS SUMMARY | 2025-04-12 15:56 | XMS_ITS | Encounter Summary ---
Author Organization [employer] Address [address] [place] [address] Care Team Providers Care Selling Underwriter Name Role Phone Brandie Evangelista DO Primary Care Provider [phone] Reason for Visit * Reason Comments Med Refill Encounter Details Date Type Department Care Team ([facility] st Contact Info) Description 01/10/2025 Refill [facility] [address] [place], [place] [phone] Brandie Evangelista DO [address], [place] [phone] Chronic obstructive pulmonary disease, unspecified COPD type (CMS/HCC); Dizziness; Asthma, unspecified asthma severity, unspecified whether complicated, unspecified whether persistent Social History Tobacco Use Types Packs/Day Years [...] the past 12 months, has t he [employer], gas, oil or water company threatened to [...] Chronic obstructive pulmonary disease, unspecified COPD type (CMS/[facility]) Dizziness Dizziness and giddiness Asthma, unspecified asthma severity, unspecified whether complicated, unspecified whether persistent documented in this encounter Additional Health Concerns Assessment Noted Time PHQ-9 Depression Total Score: 16 024 9:38 AM EDT documented as of this encounter Care Teams Selling Underwriter Relationship Specialty Start Date End Date Brandie Evangelista DO [address] [place] [address] PCP - General Family Medicine 04/04/13 Laney Jha 01/26/18 documented as of this encounter
--- OUTSIDE RECORDS SUMMARY | 2025-04-12 15:56 | XMS_ITS | Encounter Summary ---
Author Organization [employer] Address [address] [facility] [address] [address] Care Team Providers Care Newspaper Carriers Supervisor Name Role Phone Brandie Evangelista DO Primary Care Provider +1 [phone] Reason for Visit * Reason Comments Med Refill Encounter Details Date Type Department Care Team ([facility] st Contact Info) Description 03/06/2024 Refill [facility] MEDICINE 230 [place] [address] Brandie Evangelista DO 230 [place], [place] [phone] Social History Tobacco Use Types Packs/Day Years [...] documented as of this encounter Care Teams Newspaper Carriers Supervisor Relationship Specialty Start Date End Date Brandie Evangelista DO [address] [place] [address] PCP - General Family Medicine 04/04/13 Laney Jha 01/26/18 documented as of this encounter
--- OUTSIDE RECORDS SUMMARY | 2025-04-12 15:56 | XMS_ITS | Encounter Summary ---
Author Organization [employer] Address [address] [facility] [address] [address] Care Team Providers Care Accounts Payable Supervisor Name Role Phone Brandie Evangelista DO Primary Care Provider +1 [phone] Reason for Visit * Reason Comments Med Refill Encounter Details Date Type Department Care Team ([facility] st Contact Info) Description 01/17/2024 Refill [facility] MEDICINE 230 [place] [address] Brandie Evangelista DO 230 [place], [place] [phone] Social History Tobacco Use Types Packs/Day Years [...] documented as of this encounter Care Teams Accounts Payable Supervisor Relationship Specialty Start Date End Date Brandie Evangelista DO [address] [place] [address] PCP - General Family Medicine 04/04/13 Laney Jha 01/26/18 documented as of this encounter
--- OUTSIDE RECORDS SUMMARY | 2025-04-12 15:56 | XMS_ITS | Encounter Summary ---
Author Organization [employer] Address [address] [facility] [address] [place] [address] Care Team Providers Care Children'S Zoo Caretaker Name Role Phone Brandie Evangelista DO Primary Care Provider + [phone] Reason for Visit * Reason Comments Med Refill Encounter Details Date Type Department Care Team ([facility] st Contact Info) Description 11/15/2024 Refill [facility] MEDICINE 230 [place] [address] Cristiane Sexton MD 230 [place], [place] [phone] Social History Tobacco Use Types Packs/Day Years [...] documented as of this encounter Care Teams Children'S Zoo Caretaker Relationship Specialty Start Date End Date Brandie Evangelista DO [address] [place] [address] PCP - General Family Medicine 04/04/13 Laney Jha 01/26/18 documented as of this encounter
--- OUTSIDE RECORDS SUMMARY | 2025-04-12 15:56 | XMS_ITS | Encounter Summary ---
Author Organization [employer] Address 75 [facility] [address] [address] Care Team Providers Care Field Radio Operator Name Role Phone Brandie Evangelista DO Primary Care Provider +1 [phone] Reason for Visit * Reason Comments Med Refill Encounter Details Date Type Department Care Team ([facility] st Contact Info) Description 03/08/2024 Refill [facility] MEDICINE 230 [place] [address] Brandie Evangelista DO 230 [place], [place] [phone] Social History Tobacco Use Types Packs/Day Years [...] documented as of this encounter Care Teams Field Radio Operator Relationship Specialty Start Date End Date Brandie Evangelista DO [address] [place] [address] PCP - General Family Medicine 04/04/13 Laney Jha 01/26/18 documented as of this encounter
--- OUTSIDE RECORDS SUMMARY | 2025-04-12 15:56 | XMS_ITS | Encounter Summary ---
Author Organization [employer] Address [address] [facility] [address] [address] Care Team Providers Care Prototype Engineer Name Role Phone Brandie Evangelista DO Primary Care Provider +1 [phone] Reason for Visit * Reason Comments Med Refill Encounter Details Date Type Department Care Team ([facility] st Contact Info) Description 11/25/2023 Refill [facility] MEDICINE 230 [place] [address] Brandie Evangelista DO 230 [place], [place] [phone] Social History Tobacco Use Types Packs/Day Years [...] documented as of this encounter Care Teams Prototype Engineer Relationship Specialty Start Date End Date Brandie Evangelista DO [address] [place] [address] PCP - General Family Medicine 04/04/13 Laney Jha 01/26/18 documented as of this encounter
--- OUTSIDE RECORDS SUMMARY | 2025-04-12 15:56 | XMS_ITS | Encounter Summary ---
Author Organization [employer] Address [address] [facility] 7[address] [place] [address] Care Team Providers Care Tax Associate Name Role Phone Brandie Evangelista DO Primary Care Provider +1 [phone] Reason for Visit * Reason Comments Med Refill Encounter Details Date Type Department Care Team ([facility] st Contact Info) Description 03/02/2025 Refill [facility] MEDICINE 230 [place] [address] Brandie Evangelista DO 230 [place] [address] Dizziness; Asthma, unspecified asthma severity, unspecified whether [...] as of this encounter Visit Diagnoses Diagnosis Dizziness Dizziness and giddiness Asthma, unspecified asthma severity, unspecified whether complicated, unspecified whether persistent documented in this encounter Additional Health Concerns Assessment Noted Time PHQ-9 Depression Total Score: 16 024 9:38 AM EDT documented as of this encounter Care Teams Tax Associate Relationship Specialty Start Date End Date Brandie Evangelista DO [address] [place] [address] PCP - General Family Medicine 04/04/13 Laney Jha 01/26/18 documented as of this encounter
--- OUTSIDE RECORDS SUMMARY | 2025-04-12 15:56 | XMS_ITS | Encounter Summary ---
Author Organization [employer] Address [address] [facility] [address] [address] Care Team Providers Care Cable Swager Name Role Phone Brandie Evangelista DO Primary Care Provider + [phone] Reason for Visit * Reason Comments Med Refill Encounter Details Date Type Department Care Team ([facility] st Contact Info) Description 05/03/2024 Refill [facility] MEDICINE 230 [place] [address] Brandie Evangelista DO 230 [place], [place] [phone] Social History Tobacco Use Types Packs/Day Years [...] documented as of this encounter Care Teams Cable Swager Relationship Specialty Start Date End Date Brandie Evangelista DO [address] [place] [address] PCP - General Family Medicine 04/04/13 Laney Jha 01/26/18 documented as of this encounter
--- OUTSIDE RECORDS SUMMARY | 2025-04-12 15:56 | XMS_ITS | Encounter Summary ---
Author Organization [employer] Address [address] [place] [address] 7[address] [place] [address] Care Team Providers Care Bias Cutting Machine Operator Vertical Name Role Phone Brandie Evangelista DO Primary Care Provider [phone] Ed Evans PharmD Unavailable Unavail able Encounter Details Date Type Department Care Team (Late st Contact Info) Description 08/11/2022 Orders Only [facility] & P[facility] [address] [place] [address] Brandie Thomas LPN Social History Tobacco Use [...] on filedocumented in this encounter Care Teams Bias Cutting Machine Operator Vertical Relationship Specialty Start Date End Date Brandie Evangelista DO 230 [place] [address] PCP - General Family Medicine 04/04/13 Ed Evans, PharmD 230 [place] [address] Pharmacist Internal Medicine 12/10/22 07/04/23 Laney Jha 01/26/18 documented as of this encounter
--- OUTSIDE RECORDS SUMMARY | 2025-04-12 15:56 | XMS_ITS | Encounter Summary ---
Author Organization [employer] Address [address] [place] [address] 7 [place] [address] Care Team Providers Care Veneer Grader Name Role Phone Brandie Evangelista DO Primary Care Provider [phone] Ed Evans PharmD Unavailable Unavail able Encounter Details Date Type Department Care Team (Late st Contact Info) Description 07/13/2022 Orders [address] [facility] 230 [place] [address] Hellen Dick LPN Social History Tobacco Use [...] on filedocumented in this encounter Care Teams Veneer Grader Relationship Specialty Start Date End Date Brandie Evangelista DO [address] [place] [address] PCP - General Family Medicine 04/04/13 Ed Evans, PharmD [address] [place] [address] Pharmacist Internal Medicine 12/10/22 07/04/23 Laney Jha 01/26/18 documented as of this encounter
--- OUTSIDE RECORDS SUMMARY | 2025-04-12 15:56 | XMS_ITS | Encounter Summary ---
Author Organization [employer] Address [address] [place] [address] [address] [place] [address] Care Team Providers Care Analysis Mgr Name Role Phone Brandie Evangelista DO Primary Care Provider [phone] Ed Evans PharmD Unavailable Unavail able Encounter Details Date Type Department Care Team (Late st Contact Info) Description 09/01/2022 Orders Only [facility] [address] [place] [address] Brandie Thomas LPN Social History Tobacco Use [...] on filedocumented in this encounter Care Teams Analysis Mgr Relationship Specialty Start Date End Date Brandie Evangelista DO 230 [place] [address] PCP - General Family Medicine 04/04/13 Ed Evans, PharmD 230 [place] [address] Pharmacist Internal Medicine 12/10/22 07/04/23 Laney Jha 01/26/18 documented as of this encounter
--- OUTSIDE RECORDS SUMMARY | 2025-04-12 15:56 | XMS_ITS | Encounter Summary ---
Author Organization [facility] Address [address] [place] [address] Care Team Providers Care Cabinet Abrasive Sandblaster Name Role Phone Brandie Evangelista DO Primary Care Provider Ed Evans PharmD Unavailable Unavail able Encounter Details Date Type Department Care Team (Late st Contact Info) Description 09/07/2022 Abstract [facility] MEDICINE 230 [place] [address] Brandie Evangelista DO 230 [place] [address] Social History Tobacco Use Types Packs/Day Years [...] on filedocumented in this encounter Care Teams Cabinet Abrasive Sandblaster Relationship Specialty Start Date End Date Brandie Evangelista DO 230 [place] [address] PCP - General Family Medicine 04/04/13 Ed Evans, PharmD [address] [place] [address] Pharmacist Internal Medicine 12/10/22 07/04/23 Laney Jha 01/26/18 documented as of this encounter
--- OUTSIDE RECORDS SUMMARY | 2025-04-12 15:56 | XMS_ITS | Encounter Summary ---
Author Organization [employer] Address [address] [facility] [address] [address] Care Team Providers Care Brusher Operator Name Role Phone Brandie Evangelista DO Primary Care Provider [phone] Reason for Visit * Reason Comments Med Refill Encounter Details Date Type Department Care Team ([facility] st Contact Info) Description 01/22/2024 Refill [facility] MEDICINE 230 [place], [place] [phone] Brandie Evangelista DO 230 [place], [place] [phone] Social History Tobacco Use Types Packs/Day Years [...] documented as of this encounter Care Teams Brusher Operator Relationship Specialty Start Date End Date Brandie Evangelista DO [address] [place] [address] PCP - General Family Medicine 04/04/13 Laney Jha 01/26/18 documented as of this encounter
--- OUTSIDE RECORDS SUMMARY | 2025-04-12 15:56 | XMS_ITS | Encounter Summary ---
Author Organization [employer] Address 75 [facility] [address] [address] Care Team Providers Care Chemist Assistant Name Role Phone Brandie Evangelista DO Primary Care Provider [phone] Reason for Visit * Reason Comments Med Refill Encounter Details Date Type Department Care Team ([facility] st Contact Info) Description 11/30/2023 Refill [facility] MEDICINE 230 [place] [address] Brandie Evangelista DO 230 [place], [place] [phone] Social History Tobacco Use Types Packs/Day Years [...] documented as of this encounter Care Teams Chemist Assistant Relationship Specialty Start Date End Date Brandie Evangelista DO [address] [place] [address] PCP - General Family Medicine 04/04/13 Laney Jha 01/26/18 documented as of this encounter
--- OUTSIDE RECORDS SUMMARY | 2025-04-12 15:56 | XMS_ITS | Encounter Summary ---
Author Organization [employer] Address [address] [facility] [address] [place] [address] Care Team Providers Care Bottom Pounder Cement Shoes Name Role Phone Brandie Evangelista DO Primary Care Provider [phone] Reason for Visit * Reason Comments Med Refill Encounter Details Date Type Department Care Team ([facility] st Contact Info) Description 04/25/2024 Refill [facility] MEDICINE 230 [place] [address] Brandie Evangelista DO 230 [place], [place] [phone] Social History Tobacco Use Types Packs/Day Years [...] documented as of this encounter Care Teams Bottom Pounder Cement Shoes Relationship Specialty Start Date End Date Brandie Evangelista DO [address] [place] [address] PCP - General Family Medicine 04/04/13 Laney Jha 01/26/18 documented as of this encounter
--- OUTSIDE RECORDS SUMMARY | 2025-04-12 15:56 | XMS_ITS | Encounter Summary ---
Author Organization [employer] Address [address] [facility] 7t [place] [address] Care Team Providers Care Big Data Analytics Lead Name Role Phone Brandie Evangelista DO Primary Care Provider [phone] Reason for Visit * Reason Comments Med Refill Encounter Details Date Type Department Care Team ([facility] st Contact Info) Description 11/15/[address] [facility] MEDICINE 230 [place] [address] Brandie Evangelista DO 230 [place], [place] [phone] Chest pain, unspecified type Social History Tobacco [...] documented as of this encounter Care Teams Big Data Analytics Lead Relationship Specialty Start Date End Date Brandie Evangelista DO [address] [place] [address] PCP - General Family Medicine 04/04/13 Laney Jha 01/26/18 documented as of this encounter
--- OUTSIDE RECORDS SUMMARY | 2025-04-12 15:56 | XMS_ITS | Encounter Summary ---
Author Organization [facility] Address [address] [place] [address] Care Team Providers Care Sand Hauler Name Role Phone Brandie Evangelista DO Primary Care Provider Ed Evans PharmD Unavailable Unavail able Encounter Details Date Type Department Care Team (Late st Contact Info) Description 09/16/2022 Abstract [facility] MEDICINE 230 [place] [address] Brandie Evangelista DO 230 [place] [address] Social History Tobacco Use Types Packs/Day Years [...] on filedocumented in this encounter Care Teams Sand Hauler Relationship Specialty Start Date End Date Brandie Evangelista DO 230 [place] [address] PCP - General Family Medicine 04/04/13 Ed Evans, PharmD [address] [place] [address] Pharmacist Internal Medicine 12/10/22 07/04/23 Laney Jha 01/26/18 documented as of this encounter
--- OUTSIDE RECORDS SUMMARY | 2025-04-12 15:56 | XMS_ITS | Encounter Summary ---
Author Organization [employer] Address [address] [facility] [address] [address] Care Team Providers Care Barrel Drum Cutter Name Role Phone Brandie Evangelista DO Primary Care Provider +1 [phone] Reason for Visit * Reason Comments Med Refill Encounter Details Date Type Department Care Team ([facility] st Contact Info) Description 03/06/2024 Refill [facility] MEDICINE 230 [place] [address] Brandie Evangelista DO 230 [place], [place] [phone] Social History Tobacco Use Types Packs/Day Years [...] documented as of this encounter Care Teams Barrel Drum Cutter Relationship Specialty Start Date End Date Brandie Evangelista DO [address] [place] [address] PCP - General Family Medicine 04/04/13 Laney Jha 01/26/18 documented as of this encounter
--- OUTSIDE RECORDS SUMMARY | 2025-04-12 15:56 | XMS_ITS | Encounter Summary ---
Author Organization [employer] Address [address] [facility] 7t [place] [address] Care Team Providers Care Quality Assurance Director Name Role Phone Brandie Evangelista DO Primary Care Provider [phone] Reason for Visit * Reason Comments Med Refill Encounter Details Date Type Department Care Team ([facility] st Contact Info) Description 03/07/2025 Refill [facility] MEDICINE 230 [place], [place] [phone] Brandie Evangelista DO 230 [place], [place] [phone] Seasonal allergic rhinitis, unspecified trigger; Chest pain, unspecified type Social History Tobacco [...] Diagnoses Diagnosis Seasonal allergic rhinitis, unspecified trigger Chest pain, unspecified type documented in this encounter Additional Health Concerns Assessment Noted Time PHQ-9 Depression Total Score: 16 024 9:38 AM EDT documented as of this encounter Care Teams Quality Assurance Director Relationship Specialty Start Date End Date Brandie Evangelista DO 230 [place] [address] PCP - General Family Medicine 04/04/13 Laney Jha 01/26/18 documented as of this encounter
--- OUTSIDE RECORDS SUMMARY | 2025-04-12 15:56 | XMS_ITS | Encounter Summary ---
Author Organization [employer] Address 75 [facility] 7t [place] [address] Care Team Providers Care Software Technical Lead Name Role Phone Brandie Evangelista DO Primary Care Provider [phone] Reason for Visit * Reason Comments Med Refill Encounter Details Date Type Department Care Team ([facility] st Contact Info) Description 07/14/2023 Refill [facility] MEDICINE 230 [place], [place] [phone] Brandie Evangelista DO 230 [place], [place] [phone] Social History Tobacco Use Types Packs/Day Years [...] documented as of this encounter Care Teams Software Technical Lead Relationship Specialty Start Date End Date Brandie Evangelista DO 230 [place] [address] PCP - General Family Medicine 04/04/13 Laney Jha 01/26/18 documented as of this encounter
--- OUTSIDE RECORDS SUMMARY | 2025-04-12 15:56 | XMS_ITS | Encounter Summary ---
Author Organization [employer] Address [address] [place] [address] 7 [place] [address] Care Team Providers Care Oil Program Compliance Specialist Name Role Phone Brandie Evangelista DO Primary Care Provider [phone] Reason for Visit * Reason Onset Date Comments Med Refill Appointment Confirmation 11/23/2023 Encounter Details Date Type Department Care Team ([facility] st Contact Info) Description 11/23/2023 Refill [facility] MEDICINE 230 [place] [address] Brandie Evangelista DO 230 [place] [address] Social History Tobacco Use Types Packs/Day Years [...] 9:43 AM EDT TC to pt using [employer] Vitamin Consultant ID# [id number]. Per MD request, pt scheduled for HDF OV 11/30 at 215. Pt stated PM appointments are preferable as he needs help from his [employer]. Pt confirms understanding ofplan and has [facility] contact information. documented in this encounter [...] documented as of this encounter Care Teams Oil Program Compliance Specialist Relationship Specialty Start Date End Date Brandie Evangelista DO [address] [place] [address] PCP - General Family Medicine 04/04/13 Laney Jha 01/26/18 documented as of this encounter
--- OUTSIDE RECORDS SUMMARY | 2025-04-12 15:56 | XMS_ITS | Encounter Summary ---
Author Organization [employer] Address 75 [facility] [address] [address] Care Team Providers Care Commissioned Defence Force Officer Name Role Phone Brandie Evangelista DO Primary Care Provider +[phone] Reason for Visit * Reason Comments Med Refill Encounter Details Date Type Department Care Team ([facility] st Contact Info) Description 12/15/2023 Refill [facility] MEDICINE 230 [place], [place] [phone] Brandie Evangelista DO 230 [place], [place] [phone] Social History Tobacco Use Types Packs/Day Years [...] documented as of this encounter Care Teams Commissioned Defence Force Officer Relationship Specialty Start Date End Date Brandie Evangelista DO [address] [place] [address] PCP - General Family Medicine 04/04/13 Laney Jha 01/26/18 documented as of this encounter
--- OUTSIDE RECORDS SUMMARY | 2025-04-12 15:56 | XMS_ITS | Encounter Summary ---
Author Organization [employer] Address 75 [facility] [address] [address] Care Team Providers Care Associate Account Director Name Role Phone Brandie Evangelista DO Primary Care Provider [phone] Reason for Visit * Reason Comments Med Refill Encounter Details Date Type Department Care Team ([facility] st Contact Info) Description 12/08/[address] [facility] MEDICINE 230 [place] [address] Brandie Evangelista DO 230 [place], [place] [phone] Social History Tobacco Use Types Packs/Day Years [...] documented as of this encounter Care Teams Associate Account Director Relationship Specialty Start Date End Date Brandie Evangelista DO [address] [place] [address] PCP - General Family Medicine 04/04/13 Laney Jha 01/26/18 documented as of this encounter
--- OUTSIDE RECORDS SUMMARY | 2025-04-12 15:56 | XMS_ITS | Encounter Summary ---
Author Organization [employer] Address [address] [place] [address] 7 [place] [address] Care Team Providers Care Behavioral Health Tech Name Role Phone Brandie Evangelista DO Primary Care Provider [phone] Reason for Visit * Reason Onset Date Comments Pre-op Exam 04/19/2024 Encounter Details Date Type Department Care Team ([facility] st Contact Info) Description 04/19/2024 Telephone [facility] MEDICINE 230 [place] [address] Brandie Evangelista DO 230 [place], [place] [phone] Pre-op Exam Social History Tobacco Use Types [...] documented as of this encounter Care Teams Behavioral Health Tech Relationship Specialty Start Date End Date Brandie Evangelista DO 230 [place] [address] PCP - General Family Medicine 04/04/13 Laney Jha 01/26/18 documented as of this encounter
--- OUTSIDE RECORDS SUMMARY | 2025-04-12 15:56 | XMS_ITS | Encounter Summary ---
Author Organization [employer] Address 75 [facility] 7t [place] [address] Care Team Providers Care Lpta Name Role Phone Brandie Evangelista DO Primary Care Provider [phone] Reason for Visit * Reason Comments Med Refill Encounter Details Date Type Department Care Team ([facility] st Contact Info) Description 08/09/2023 Refill [facility] MEDICINE 230 [place], [place] [phone] Brandie Evangelista DO 230 [place], [place] [phone] Type 2 diabetes mellitus with other specified complication, without long-term current use of insulin (CMS/HCC); Muscle spasm; Swelling of both lower extremities; [...] complication, without long-term current use of insulin ([facility]) Muscle spasm Spasm of muscle Swelling of both lower extremities Anemia, unspecified type documented in this encounter Additional Health Concerns Assessment Noted Time PHQ-9 Depression Total Score: 5 11/17/19 23 10:04 AM EDT documented as of this encounter Care Teams Lpta Relationship Specialty Start Date End Date Brandie Evangelista DO 230 [place] [address] PCP - General Family Medicine 04/04/13 Laney Jha 01/26/18 documented as of this encounter
--- OUTSIDE RECORDS SUMMARY | 2025-04-12 15:56 | XMS_ITS | Encounter Summary ---
Author Organization [employer] Address [address] [place] [address] 7 [place] [address] Care Team Providers Care Embossing Clerk Name Role Phone Brandie Evangelista DO Primary Care Provider +1- [phone] Ed Evans PharmD Unavailable Unavail able Encounter Details Date Type Department Care Team (Late st Contact Info) Description 08/11/2022 Orders Only [facility] [address] [place] [address] Hellen Dick LPN Social History Tobacco Use [...] on filedocumented in this encounter Care Teams Embossing Clerk Relationship Specialty Start Date End Date Brandie Evangelista DO [address] [place] [address] PCP - General Family Medicine 04/04/13 Ed Evans, PharmD [address] [place] [address] Pharmacist Internal Medicine 12/10/22 07/04/23 Laney Jha 01/26/18 documented as of this encounter
--- OUTSIDE RECORDS SUMMARY | 2025-04-12 15:57 | XMS_ITS | Encounter Summary ---
Author Organization [employer] Address [address] [place] [address] [address] [address] Care Team Providers Care Ready To Wear Department Manager Name Role Phone Brandie Evangelista DO Primary Care Provider [phone]- [phone] Ed Evans PharmD Unavailable Unavail able Reason for Visit * Reason Onset Date Comments Medication Question 04/01/2023 Encounter Details Date Type Department Care Team ([facility] st Contact Info) Description 04/01/2023 Telephone [facility] [address] [place] [address] Brandie Evangelista DO [address] [place], [place] [phone] Medication Question Social History Tobacco Use Types [...] - 04/05/2023 11:39 AM EDT T/C to [phone] for below message, No answer. LVM to call back on [phone]. * Telephone Encounter - Jovanna Nichols - 04/01/2023 4:51 PM EDT Tc from patients Son requesting a call back, in regards to patients medications and interactions. Please call [phone]. documented in this encounter Plan of Treatment [...] documented as of this encounter Care Teams Ready To Wear Department Manager Relationship Specialty Start Date End Date Brandie Evangelista DO [address] [place] [address] PCP - General Family Medicine 04/04/13 Ed Evans, PharmD [address] [place] [address] Pharmacist Internal Medicine 12/10/22 07/04/23 Laney Jha 01/26/18 documented as of this encounter
--- OUTSIDE RECORDS SUMMARY | 2025-04-12 15:57 | XMS_ITS | Encounter Summary ---
Author Organization [employer] Address [address] [facility] 7t [place] [address] Care Team Providers Care Instructional Manager Name Role Phone Brandie Evangelista DO Primary Care Provider +1 [phone] Ed Evans PharmD Unavailable Unavail able Reason for Visit * Reason Comments Med Refill Encounter Details Date Type Department Care Team ([facility] st Contact Info) Description 05/21/[address] [facility] [address] [place] [address] Brandie Evangelista DO [address] [place] [address] Muscle spasm; Seasonal allergic rhinitis, unspecified trigger [...] the past 12 months, has t he [employer], gas, oil or water company threatened to [...] documented as of this encounter Care Teams Instructional Manager Relationship Specialty Start Date End Date Brandie Evangelista DO [address] [place] [address] PCP - General Family Medicine 04/04/13 Ed Evans, PharmD [address] [place] [address] Pharmacist Internal Medicine 12/10/22 07/04/23 Laney Jha 01/26/18 documented as of this encounter
--- OUTSIDE RECORDS SUMMARY | 2025-04-12 15:57 | XMS_ITS | Encounter Summary ---
Author Organization [employer] Address [address] [facility] 7t [place] [address] Care Team Providers Care Tankage Grinder Operator Name Role Phone Brandie Evangelista DO Primary Care Provider +1 [phone] Ed Evans PharmD Unavailable Unavail able Reason for Visit * Reason Comments Med Refill Encounter Details Date Type Department Care Team ([facility] st Contact Info) Description 07/01/2023 Refill [facility] [address] [place] [address] Brandie Evangelista DO [address] [place] [address] Chest pain, unspecified type Social History Tobacco [...] documented as of this encounter Care Teams Tankage Grinder Operator Relationship Specialty Start Date End Date Brandie Evangelista DO [address] [place] [address] PCP - General Family Medicine 04/04/13 Ed Evans, BgD [address] [place] [address] Pharmacist Internal Medicine 12/10/22 07/04/23 Laney Jha 01/26/18 documented as of this encounter
--- OUTSIDE RECORDS SUMMARY | 2025-04-12 15:57 | XMS_ITS | Encounter Summary ---
Author Organization [employer] Address [address] [place] [address] [address] [place] [address] Care Team Providers Care Dumper Mold Cleaner Name Role Phone Brandie Evangelista DO Primary Care Provider + [phone] Reason for Visit * Reason Comments Med Refill Encounter Details Date Type Department Care Team ([facility] st Contact Info) Description 10/27/2023 Refill [facility] 230 [place], [place] [phone] Brandie Evangelista DO [address] [place], [place] [phone] Anemia, unspecified type Social History Tobacco Use [...] documented as of this encounter Care Teams Dumper Mold Cleaner Relationship Specialty Start Date End Date Brandie Evangelista DO [address] [place] [address] PCP - General Family Medicine 04/04/13 Laney Jha 01/26/18 documented as of this encounter
--- OUTSIDE RECORDS SUMMARY | 2025-04-12 15:57 | XMS_ITS | Encounter Summary ---
Author Organization [employer] Address [address] [facility] 7t [place] [address] Care Team Providers Care Admissions Director Name Role Phone Brandie Evangelista DO Primary Care Provider +1 [phone] Ed Evans PharmD Unavailable Unavail able Reason for Visit * Reason Comments Med Refill Encounter Details Date Type Department Care Team ([facility] st Contact Info) Description 06/23/2023 Refill [facility] [address] [place] [address] Brandie Evangelista DO [address] [place] [address] Chest pain, unspecified type Social History Tobacco [...] documented as of this encounter Care Teams Admissions Director Relationship Specialty Start Date End Date Brandie Evangelista DO [address] [place] [address] PCP - General Family Medicine 04/04/13 Ed Evans, BgD [address] [place] [address] Pharmacist Internal Medicine 12/10/22 07/04/23 Laney Jha 01/26/18 documented as of this encounter
--- OUTSIDE RECORDS SUMMARY | 2025-04-12 15:57 | XMS_ITS | Encounter Summary ---
Author Organization [employer] Address [address] [facility] 7t [place] [address] Care Team Providers Care Construction Inspector Name Role Phone Brandie Evangelista DO Primary Care Provider +1 [phone] Ed Evans PharmD Unavailable Unavail able Reason for Visit * Reason Comments Med Refill Encounter Details Date Type Department Care Team ([facility] st Contact Info) Description 06/17/2023 Refill [facility] [address] [place] [address] Brandie Evangelista DO [address] [place] [address] Chest pain, unspecified type Social History Tobacco [...] documented as of this encounter Care Teams Construction Inspector Relationship Specialty Start Date End Date Brandie Evangelista DO [address] [place] [address] PCP - General Family Medicine 04/04/13 Ed Evans, BgD [address] [place] [address] Pharmacist Internal Medicine 12/10/22 07/04/23 Laney Jha 01/26/18 documented as of this encounter
--- OUTSIDE RECORDS SUMMARY | 2025-04-12 15:57 | XMS_ITS | Encounter Summary ---
Author Organization [employer] Address [address] [facility] 7t [place] [address] Care Team Providers Care Condenser Operator Name Role Phone Brandie Evangelista DO Primary Care Provider [phone] [phone] Reason for Visit * Reason Comments Med Refill Encounter Details Date Type Department Care Team ([facility] st Contact Info) Description 07/13/2023 Refill [facility] [address] [place], [place] [phone] Brandie Evangelista DO [address] [place], [place] [phone] Social History Tobacco Use Types Packs/Day Years [...] documented as of this encounter Care Teams Condenser Operator Relationship Specialty Start Date End Date Brandie Evangelista DO [address] [place] [address] PCP - General Family Medicine 04/04/13 Laney Jha 01/26/18 documented as of this encounter
--- OUTSIDE RECORDS SUMMARY | 2025-04-12 15:57 | XMS_ITS | Encounter Summary ---
Author Organization [employer] Address [address] [facility] 7t [place] [address] Care Team Providers Care Laborer Tin Can Name Role Phone ElizabethBrandie becker Primary Care Provider +1 [phone] Encounter Details Date Type Department Care Team (Late st Contact Info) Description 11/05/2023 Orders Only [facility] [address] [place] [address] Provider, MD Trudy Social History Tobacco Use [...] Evans, PharmD documented as of this encounter Procedures [...] documented as of this encounter Care Teams Laborer [employer] Can Relationship Specialty Start Date End Date Brandie Evangelista DO [address] [place] [address] PCP - General Family Medicine 04/04/13 Laney Jha 01/26/18 documented as of this encounter
--- OUTSIDE RECORDS SUMMARY | 2025-04-12 15:57 | XMS_ITS | Encounter Summary ---
Author Organization [employer] Address [address] [place] [address] [address] [place] [address] Care Team Providers Care Manager Net Name Role Phone Brandie Evangelista DO Primary Care Provider +1 [phone] Ed Evans PharmD Unavailable Unavail able Encounter Details Date Type Department Care Team (Late st Contact Info) Description 11/17/2022 Orders Only [facility] [address] [place], [place] [phone] Ed Evans, PharmD Social History Tobacco Use [...] as of this encounter Care Teams Manager Net Relationship Specialty Start Date End Date Brandie Evangelista DO [address] [place] [id number] PCP - General Family Medicine 04/04/13 Ed Evans, BgD [address] [place] [address] Pharmacist Internal Medicine 12/10/22 07/04/23 Laney Jha 01/26/18 documented as of this encounter
--- OUTSIDE RECORDS SUMMARY | 2025-04-12 15:57 | XMS_ITS | Encounter Summary ---
Author Organization [employer] Address [address] [place] [address] [address], [place] [address] Care Team Providers Care Entertainment Usher Name Role Phone Brandie Evangelista DO Primary Care Provider +1 [phone] Ed Evans PharmD Unavailable Unavail able Reason for Visit * Reason Comments Med Refill Encounter Details Date Type Department Care Team ([facility] st Contact Info) Description 03/25/2023 Refill [facility] [address] [place] [address] Brandie Evangelista DO [address] [place] [address] Asthma, unspecified asthma severity, unspecified whether complicated, [...] documented as of this encounter Care Teams Entertainment Usher Relationship Specialty Start Date End Date Brandie Evangelista DO [address] [place] [address] PCP - General Family Medicine 04/04/13 Ed Evans, PharmD [address] [place] [address] Pharmacist Internal Medicine 12/10/22 07/04/23 Laney Jha 01/26/18 documented as of this encounter
--- OUTSIDE RECORDS SUMMARY | 2025-04-12 15:57 | XMS_ITS | Clinical Summary ---
Author Organization [email or web address] Address [address] [place] [address] [address] [place] [address] Care Team Providers Care Core Inspector Name Role Phone Brandie Evangelista Primary Care Provider Allergies No known active allergies Medications tiotropium (Spiriva HandiHaler) 18 MCG inhalation capsuleIndicat ions:Chronic obstructive pulmonary disease, unspecified COPD type ([facility]) inhale 1 capsule by inhalation route every day 90 capsule 3 07/14/20 22 Active Blood Glucose Monitoring Suppl (ONE TOUCH ULTRA 2) w/Device kitIndications :Type 2 diabetes mellitus with other specified complication, 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 113 g 3 11/18/19 23 Active Lancets ([employer] Delica Plus [id number]) miscIndication s:Type 2 diabetes mellitus with other specified complication, unspecified whether assisted insulin use ([facility]) USE TO TEST ONCE DAILY 100 each 11 03/23/20 24 Active Ketotifen Fumarate 0.035 % solution ADMINISTER 1 DROP INTO AFFECTED EYE(S) IN THE MORNING AND AT BEDTIME. 5 mL 5 07/13/20 24 Active Ascorbic Acid (vitamin C) 250 MG tabletIndicati ons:Anemia, unspecified type TAKE ONE TABLET BY MOUTH TWICE A DAY 60 tablet 08/15/19 25 Active furosemide (Lasix) 40 MG tabletIndicati ons:Swelling of both lower extremities TAKE ONE TABLET BY MOUTH EVERY DAY 30 tablet 08/15/19 25 Active metFORMIN (Glucophage) 500 MG tabletIndicati ons:Type 2 diabetes mellitus with other specified complication, without long-term current use of insulin ([facility]) TAKE ONE TABLET BY MOUTH THREE TIMES A DAY WITH MEALS 90 tablet 08/15/19 25 Active cholecalcifero l VITAMIN D (Vitamin D-3) 50 MCG (2000 UT) capsuleIndicat ions:Vitamin D deficiency TAKE ONE CAPSULE BY MOUTH EVERY DAY ^1R1 28 capsule 08/25/19 25 Active polyethylene glycol, PEG, 3350 (Glycolax) 17 GM/SCOOP powderIndicati ons:Anemia, unspecified type MIX 17 GRAM(S) IN 8 OZ OF WATER AND DRINK BY MOUTH DAILY DIRECTED (BULK) 510 g 11 09/14/19 25 Active levothyroxine (Synthroid, Levoxyl) 75 MCG tablet TAKE ONE TABLET BY MOUTH EVERY DAY ^1R1 28 tablet 09/14/19 25 Active ferrous sulfate (FeroSul) 325 (65 Fe) MG tabletIndicati ons:Anemia, unspecified type TAKE 1 TABLET BY MOUTH TWICE DAILY 56 tablet 09/22/19 25 Active montelukast (Singulair) 10 MG tablet TAKE ONE TABLET BY MOUTH EVERY EVENING ^1R3 30 tablet 09/22/19 25 Active fluticasone (Flonase) 50 MCG/ACT nasal spray APPLY 2 SPRAYS IN EACH NOSTRIL ONCE DAILY (BULK) 16 g 09/22/19 25 Active docusate sodium (Colace) 100 MG capsule TAKE ONE CAPSULE BY MOUTH TWICE A DAY ^1R1,1R4 60 capsule 09/22/19 25 Active Multiple Vitamins-Bascom als (Cerovite Senior) tablet TAKE ONE TABLET BY MOUTH EVERY DAY ^1R1 28 tablet 10/19/19 25 Active Alcohol Swabs (Easy Touch Alcohol Prep Medium) 70 % pads USE TO CLEAN THE AREA BEFORE CHECKING BLOOD SUGAR ONCE A DAY (BULK) 100 each 11/29/19 25 Active OneTouch Ultra test stripIndicatio ns:Type 2 diabetes mellitus with other specified complication, unspecified whether assisted insulin use ([facility]) USE TO TEST ONCE DAILY 100 strip 02/06/20 25 Active tamsulosin (Flomax) 0.4 MG 24 hr capsuleIndicat ions:Benign prostatic hyperplasia, unspecified whether lower urinary tract symptoms present TAKE ONE CAPSULE BY MOUTH EVERY DAY ^1R1 30 capsule 02/10/20 25 Active acetaminophen (Tylenol 8 Hour) 650 MG ER tablet TAKE ONE TABLET BY MOUTH EVERY 8 HOURS NEEDED FOR PAIN AND/OR FEVER (VIAL) 60 tablet 02/10/20 25 Active Symbicort 160-4.5 MCG/ACT inhalerIndicat ions:Chronic obstructive pulmonary disease, unspecified COPD type ([facility]) INHALE 2 PUFFS TWO TIMES A DAY IN THE MORNING AND IN THE EVENING 12 g 02/13/20 25 Active cetirizine (ZyrTEC) 10 MG tabletIndicati ons:Seasonal allergic rhinitis, unspecified trigger TAKE ONE TABLET BY MOUTH EVERY DAY 30 tablet 03/08/20 25 Active Diclofenac Sodium 1 % gel APPLY 1 INCH TOPICALLY IF NEEDED IN THE MORNING AND AT BEDTIME FOR PAIN (BULK) 100 g 03/08/20 25 Active gabapentin (Neurontin) 100 MG capsule TAKE ONE CAPSULE BY MOUTH EVERY EVENING AT BEDTIME 28 capsule 3 03/30/20 25 Active albuterol (2.5 MG/3ML) 0.083% nebulizer solution INHALE THE CONTENTS OF 1 VIAL VIA NEBULIZER EVERY 6 HOURS NEEDED FOR SHORTNESS OF BREATH, COUGH OR WHEEZING (BULK) 90 mL 3 04/05/20 25 Active Aspirin Low Dose 81 MG EC tablet TAKE ONE TABLET BY MOUTH EVERY DAY ^1R1 30 tablet 11 04/05/20 25 Active meclizine (Antivert) 25 MG tabletIndicati ons:Dizziness TAKE ONE TABLET BY MOUTH THREE TIMES A DAY NEEDED FOR DIZZINESS (VIAL) 90 tablet 5 04/05/20 25 Active nitroglycerin (Nitrostat) 0.4 MG SL tabletIndicati ons:Chest pain, unspecified type PLACE 1 TABLET UNDER TONGUE AND ALLOW TO DISSOLVE ONCE EVERY 5 MINUTES IF NEEDED FOR CHEST PAIN; IF NO RELIEF AFTER THIRD DOSE CALL 911 (ORIGINAL CONTAINER) 25 tablet 04/05/20 25 Active triamcinolone (Kenalog) 0.1 % ointment APPLY TOPICALLY TO THE AFFECTED AREA(S) TWO TIMES A DAY NEEDED FOR PAIN (BULK) 30 g 1 04/05/20 25 Active albuterol (Ventolin HFA) 108 (90 Base) MCG/ACT inhalerIndicat ions:Asthma, unspecified asthma severity, unspecified whether complicated, unspecified whether persistent INHALE TWO PUFFS BY MOUTH EVERY 4 TO 6 HOURS NEEDED FOR SHORTNESS OF BREATH (BULK) 18 g 5 04/05/20 25 Active Aspirin Low Dose 81 MG EC tablet TAKE ONE TABLET BY MOUTH EVERY DAY ^1R1 30 tablet 11 05/11/20 24 025 Discontinued gabapentin (Neurontin) 100 MG capsule TAKE ONE CAPSULE BY MOUTH AT BEDTIME 28 capsule 3 12/09/19 25 025 Discontinued albuterol (2.5 MG/3ML) 0.083% nebulizer solution INHALE THE CONTENTS OF ONE VIAL VIA NEBULIZER EVERY 6 HOUR NEEDED FOR COUGH, FOR SHORTNESS OF BREATH, OR FOR WHEEZING (BULK) 90 mL 3 12/14/19 25 025 Discontinued triamcinolone (Kenalog) 0.1 % ointment APPLY TOPICALLY TO THE AFFECTED AREA(S) TWO TIMES A DAY NEEDED FOR PAIN (BULK) 30 g 1 02/13/20 25 025 Discontinued albuterol (Ventolin HFA) 108 (90 Base) MCG/ACT inhalerIndicat ions:Asthma, unspecified asthma severity, unspecified whether complicated, unspecified whether persistent INHALE TWO PUFFS BY MOUTH EVERY 4 TO 6 HOURS NEEDED FOR SHORTNESS OF BREATH (BULK) 18 g 5 02/17/20 25 025 Discontinued meclizine (Antivert) 25 MG tabletIndicati ons:Dizziness TAKE ONE TABLET BY MOUTH THREE TIMES A DAY NEEDED FOR DIZZINESS (VIAL) 90 tablet 5 02/17/20 25 025 Discontinued nitroglycerin (Nitrostat) 0.4 MG SL tabletIndicati ons:Chest pain, unspecified type PLACE 1 TABLET UNDER TONGUE AND ALLOW TO DISSOLVE ONCE EVERY 5 MINUTES IF NEEDED FOR CHEST PAIN; IF NO RELIEF AFTER THIRD DOSE CALL 911 (ORIGINAL BOTTLE) 25 tablet 03/08/20 25 025 Discontinued Active Problems Problem Noted Date Diagnosed Date Adrenal adenoma, right 11/20/2024 Urinary retention 12/01/2023 Assessment & Plan (12/01/2023 [...] 2 wks, consider start ARB Refer to [facility] again, reportedly never received phone call [...] next one due in 6 m at [facility] [place] screen overdue, needs to reschedule [...] Encounters Date Type Department Care Team Description 04/04/2025 Refill [facility] [address] [place] [address] Brandie Evangelista DO Dizziness; Chest pain, unspecified type; Asthma, unspecified asthma severity, unspecified whether complicated, unspecified whether persistent 03/29/2025 Refill [facility] [address] [place] [address] Brandie Evangelista DO 03/21/2025 Telephone [facility] [address] [place] [address] Brandie Evangelista DO Chart Prep 03/08/2025 Refill [facility] [address] [place] [address] Brandie Evangelista DO Seasonal allergic rhinitis, unspecified trigger; Chest pain, unspecified type 03/07/2025 Refill [facility] [address] [place] [address] Brandie Evangelista DO Seasonal allergic rhinitis, unspecified trigger; Chest pain, unspecified type 03/02/2025 Refill [facility] [address] [place] [address] Brandie Evangelista DO Dizziness; Asthma, unspecified asthma severity, unspecified whether complicated, unspecified whether persistent 02/20/2025 Telephone [facility] [address] [place] [address] Brandie Evangelista DO Call Back Request 02/15/2025 Refill [facility] [address] [place] [address] Brandie Evangelista DO Asthma, unspecified asthma severity, unspecified whether complicated, unspecified whether persistent; Dizziness 02/09/2025 Refill [facility] [address] [place] [address] Brandie Evangelista DO Chronic obstructive pulmonary disease, unspecified COPD type ([facility]) 02/08/2025 Refill [facility] [address] [place] [address] Brandie Evangelista DO Benign prostatic hyperplasia, unspecified whether lower urinary tract symptoms present 02/04/2025 Refill [facility] DIABETES/NUTRITION [address] [place] [address] Brandie Evangelista DO Type 2 diabetes mellitus with other specified complication, unspecified whether assisted insulin use ([facility]) 02/02/2025 Telephone [facility] [address] [place] [address] Brandie Evangelista DO Appointment Request 01/10/2025 Refill [facility] [address] [place] [address] Brandie Evangelista DO Chronic obstructive pulmonary disease, unspecified COPD type ([facility]); Dizziness; Asthma, unspecified asthma severity, unspecified whether complicated, unspecified whether persistent from Last 3 Months Immunizations Immunization Administration Dates Next Due Influenza High-dose Quadriva [...] 78 08/30/2024 9:51 AM EST Temperature 36.7 C (98 F) 08/30/2024 9:51 AM EST Respiratory Rate 20 [...] Diabetes: Foot Exam 1960 Eye Exam 1960 Alcohol/Substance Use Screening 1962 Zoster Vaccines (2 of 3) 04/08/2015 02/11/2015 Colonoscopy 06/21/2022 06/21/2017 Colorectal Cancer Screening 06/21/2022 Depression Monitoring 04/15/2024 10/14/2023, 024 Diabetes: Urine Protein Screening 05/20/2024 05/20/2023, 09/11/2021, 02/17/2021, Additional history exists Lipid Panel 05/20/2024 05/20/2023, 08/26, 02/17/2021, Additional history exists SDOH Screening 10/13/2024 10/14/2023 Diabetes: Hemoglobin A1C 02/27/2025 025, 04/28/2024, 12/17/2023, Additional history exists COVID-19 Vaccine ( season) 2025 12/17/2023, 05/07/2022, 07/02/2021 Influenza Vaccine (#1) 2025 , 05/07/2022, 05/26/2021, Additional history exists RSV Patients and Patients Aged 60 years or older (1 - 1-dose 75+ series) 2025 Tobacco Screening 08/30/2025 08/30/2024 DTaP/Tdap/Td Vaccines (3 [...] patient's age to complete this topic Meningococcal B Vaccine Aged Out No l onger eligible based on patient's age to complete [...] 6.7( 12:07 PM EST) No Ed Evans, Getachew Procedures Procedure Name Priority Date/Time Associated Diagnosis [...] 10:50 AM EDT) Creatinine, Urine 124.33 mg/dL [facility] Microalbumin Urine 62.0 mg/L H [facility] Microalbum Creatinine Ratio Ur 49.8(H) <30 ug/mg cr [facility] Comment:Albumin/Creatinine R atio Reference Ranges: Normal: < 30 ug/mg creatinine Microalbuminuria: 30 - 300 ug/mg creatinineClinical Albuminuria: > 300 ug/mg creatinine 05/20/2023 10:5 0 AM EDT 05/20/2023 11:40 AM EDT Brandie Tonja DO LAB URINE ORDERABLES Final R esult Performing Organization Address [facility] Co de Phone Number [facility] [address] [place] [address] [phone] * Hepatitis C Antibody with Reflex to HCV, RNA, Quantitative, Real-Time PCR (05/20/2023 10:50 AM EDT) Hepatitis C Antibody Nonreactive Nonreactive [facility] Comment:Antibodies to HCV no t detected; does not exclude early acuteHCV infection. 05/20/2023 10:5 0 AM EDT 05/20/2023 11:40 AM EDT Brandie Evangelista DO LAB BLOOD ORDERABLES Final R esult Performing Organization Address City/[facility] Co de Phone Number [facility] [address] [place] [address] [phone] * (ABNORMAL) Lipid Panel, Standard (05/20/2023 10:50 AM EDT) Triglycerides 92 <150 mg/dL [facility] Comment:Desirable Triglyceri de: less than 150 mg/dLBorderline High Triglyceride 150-199 mg/dLHigh Triglyceride: 200-499 mg/dLVery High Triglyceride: greater than or equal to 5OO mg/dL Cholesterol 75 <200 mg/dL [facility] Comment:Desirable Cholestero l: less than 200 mg/dLBorderline High Cholesterol: 200-239 mg/dLHigh Cholesterol: greater than 239 mg/dL LDL Cholesterol Calculated 28 <100 mg/dL [facility] Comment:Desirable LDL: less than 100 mg/dLNear Optimal/Above Optimal LDL: 110- 129 mg/dLBorderline High LDL: 130-159 mg/dLHigh LDL: 160-189 mg/dLVery High LDL: greater than or equal to 190 mg/dL HDL Cholesterol 29(L) >40 mg/dL [facility] Comment:Desirable HDL: great er than 40 mg/dL Note: This HDL assay may give artificially low results in patients with liver disease. Blood Venous blood specimen / Unknown 05/20/2023 10:50 AM EDT 05/20/2023 11:40 AM EDT Brandie Evangelista DO LAB BLOOD ORDERABLES Final R esult [facility] [address] [place] [address] [phone] * Hm Colonoscopy (06/21/2017 9:36 AM EST) Historical Provider MD HEALTH MAINTENANCE Final Result from Last 3 Months or Most Recently Relevant to Health Maintenance Insurance [facility] [employer] OPT[employer] (HMO D-SNP) [employer] [id number] Care Teams Core Inspector Relationship Specialty Start Date End Date Brandie Evangelista DO [address] [place] [phone] PCP - General Family Medicine 04/04/13 Laney Jha 01/26/18
--- OUTSIDE RECORDS SUMMARY | 2025-04-12 15:57 | XMS_ITS | Encounter Summary ---
Author Organization [employer] Address [address] [place] [address] 7 [place] [address] Care Team Providers Care Medical Resident Name Role Phone Brandie Evangelista DO Primary Care Provider [phone] Ed Evans PharmD Unavailable Unavail able Encounter Details Date Type Department Care Team (Late st Contact Info) Description 11/13/[address] [facility] [address] [place] [address] Brandie Evangelista DO [address] [place] [address] Social History Tobacco Use Types Packs/Day Years [...] AM EDT documented as of this encounter Functional Status * Over the past 2 weeks, how often have you been bothered by any of the following problems? Question Answer Date of Assessment Author Patient Health Questionnaire-2 Score 2 10/25 10:04 AM EDT Tami Kowalski [place] * Over the past 2 weeks, how often have you been bothered by any of the following problems? Question Answer Date of Assessment Author Little interest or pleasure in doing things Several days 11/16/2022 10:04 AM Tami Berry M A Feeling down, depressed, or hopeless Several days 11/16/2022 10:04 AM Tami Berry M A Trouble falling or staying asleep, or sleeping too much Several days 11/16/2022 10:04 AM Tami Berry [place] Feeling tired or having karolina le energy Several days 11/16/2022 10:04 AM Tami Berry M A Poor appetite or overeating Several days 11/16/2022 10 :04 AM Tami Berry [place] Feeling bad about yourself - or that you are a failure or have let yourself or your family down Not at all 11/16/2022 10:04 AM Tami Berry M A Trouble concentrating on things, such as reading the newspaper or watching television Not at all 11/16/2022 10:04 AM Taim Berry M A Moving or speaking so slowly that other people could have noticed? Or the opposite - being so fidgety or restless that you have been moving around a lot more than usual. Not at all 11/16/2022 10:04 AM Tami Berry MA Thoughts that you would be better off or hurting yourself in some way Not at all 11/16/2022 10:04 AM Tami Berry MA Patient Health Questionnaire -9 Score 5 11/16/2022 10:04 AM Tami Berry M A documented as of this encounter Plan of Treatment Not on file documented as of this encounter Visit Diagnoses Not on filedocumented in this encounter Care Teams Medical Resident Relationship Specialty Start Date End Date Brandie Evangelista DO [address] [place] [address] PCP - General Family Medicine 04/04/13 Ed Evans, Getachew [address] [place] [address] Pharmacist Internal Medicine 12/10/22 07/04/23 Laney Jha 01/26/18 documented as of this encounter
--- OUTSIDE RECORDS SUMMARY | 2025-04-12 15:57 | XMS_ITS | Encounter Summary ---
Author Organization [employer] Address [address] [place] [address] [address] [place] [address] Care Team Providers Care Cotton Picker Operator Name Role Phone Brandie Evangelista DO Primary Care Provider [phone] Ed Evans PharmD Unavailable Unavail able Reason for Visit * Reason Comments Med Refill Encounter Details Date Type Department Care Team ([facility] st Contact Info) Description 03/02/2023 Refill [facility] [address] [place] [address] Brandie Evangelista DO [address] [place] [address] Muscle spasm Social History Tobacco Use Types [...] documented as of this encounter Care Teams Cotton Picker Operator Relationship Specialty Start Date End Date Brandie Evangelista DO [address] [place] [address] PCP - General Family Medicine 04/04/13 Ed Evans PharmD [address] [place] [address] Pharmacist Internal Medicine 12/10/22 07/04/23 Laney Jha 01/26/18 documented as of this encounter
--- OUTSIDE RECORDS SUMMARY | 2025-04-12 15:57 | XMS_ITS | Encounter Summary ---
Author Organization [employer] Address [address] [facility] [address]t [place] [address] Care Team Providers Care Certified Pharmacy Technician Name Role Phone Brandie Evangelista DO Primary Care Provider + [phone] Reason for Visit * Reason Comments Med Refill Encounter Details Date Type Department Care Team ([facility] st Contact Info) Description 10/27/2023 Refill [facility] [address] [place] [address] Dacia Baez MD [address] [place], [place] [phone] Social History Tobacco Use Types Packs/Day Years [...] documented as of this encounter Care Teams Certified Pharmacy Technician Relationship Specialty Start Date End Date Brandie Evangelista DO [address] [place] [phone] PCP - General Family Medicine 04/04/13 Laney Jha 01/26/18 documented as of this encounter
--- OUTSIDE RECORDS SUMMARY | 2025-04-12 15:57 | XMS_ITS | Encounter Summary ---
Author Organization [employer] Address [address] [place] [address] [address] [place] [address] Care Team Providers Care First Aid Instructor Name Role Phone Brandie Evangelista DO Primary Care Provider [phone] Ed Evans PharmD Unavailable Unavail able Reason for Visit * Reason Onset Date Comments Appointment Request 09/29/2022 [facility] Loss of Consciousness Form 09/29/2022 I called the pt to ask if he picked up a new form at the [facility], because the one that was previously brought to HIM is outdated. Sheryl, his SLOT MACHINE DEPARTMENT FLOORPERSON, answered and stated that he has not picked one up, because he thought that the last one that was brought in was still at the forms dept. I informed her that the form has been filed in his chart because it is outdated, therefore he needs to provide a new form. A new form will be printed out from the [facility] website, and the pt will come in to sign a new release. Encounter Details Date Type Department Care Team (Late st Contact Info) Description 09/29/2022 Telephone [facility] [address] [place], [place] [phone] Brandie Evangelista DO [address] [place], [place] [phone] Appointment Request; [facility] Loss of Consciousness Form (I called the pt to ask if he picked up a new form at the [facility], because the one that was previously brought to HIM is outdated. Sheryl, his SLOT MACHINE DEPARTMENT FLOORPERSON, answered and stated that he has not picked one up, because he thought that the last one that was brought in was still at the forms dept. I informed her that the form has been filed in his chart because it is outdated, therefore he needs to provide a new form. A new form will be printed out from the [facility] website, and the pt will come in [...] on filedocumented in this encounter Care Teams First Aid Instructor Relationship Specialty Start Date End Date Brandie Evangelista DO [address] [place] [address] PCP - General Family Medicine 04/04/13 Ed Evans PharmD [address] [place] [address] Pharmacist Internal Medicine 12/10/22 07/04/23 Laney Jha 01/26/18 documented as of this encounter
--- OUTSIDE RECORDS SUMMARY | 2025-04-12 15:57 | XMS_ITS | Encounter Summary ---
Author Organization [employer] Address [address] [place] [address] Care Team Providers Care Medical Administrator Name Role Phone Brandie Evangelista DO Primary Care Provider [phone] Ed Evans PharmD Unavailable Unavail able Reason for Visit * Reason Comments Med Refill Encounter Details Date Type Department Care Team ([facility] st Contact Info) Description 11/12/2022 Refill [facility] [address] [place] [address] Genesis Martinez MD [address] [place] [address] Social History Tobacco Use Types Packs/Day Years [...] filedocumented in this encounter Care Teams Medical Administrator Relationship Specialty Start Date End Date Brandie Evangelista DO [address] [place] [address] PCP - General Family Medicine 04/04/13 Ed Evans, PharmD [address] [place] [address] Pharmacist Internal Medicine 12/10/22 07/04/23 Laney Jha 01/26/18 documented as of this encounter
--- OUTSIDE RECORDS SUMMARY | 2025-04-12 15:57 | XMS_ITS | Encounter Summary ---
Author Organization [employer] Address [address] [place] [address] [address] [place] [address] Care Team Providers Care Ocular Care Technician Name Role Phone Brandie Evangelista DO Primary Care Provider [phone] Reason for Visit * Reason Comments Med Refill Encounter Details Date Type Department Care Team ([facility] st Contact Info) Description 07/03/2024 Refill [facility] MEDICINE [address] [place] [address] Brandie Evangelista DO [address] [place] [address] Anemia, unspecified type; Swelling of both lower extremities; Type 2 diabetes mellitus with other specified complication, without long-term current use of insulin ([facility]); Chest pain, unspecified type Social [...] complication, without long-term current use of insulin ([facility]) Chest pain, unspecified type documented in this encounter Additional Health Concerns Assessment Noted Time PHQ-9 Depression Total Score: 16 024 9:38 AM EDT documented as of this encounter Care Teams Ocular Care Technician Relationship Specialty Start Date End Date Brandie Evangelista DO [address] [place] [address] PCP - General Family Medicine 04/04/13 Laney Jha 01/26/18 documented as of this encounter
--- OUTSIDE RECORDS SUMMARY | 2025-04-12 15:57 | XMS_ITS | Encounter Summary ---
Author Organization [employer] Address [address] [facility] 7t [place] [address] Care Team Providers Care Director Of Residence Life Name Role Phone Brandie Evangelista DO Primary Care Provider +1 [phone] Ed Evans PharmD Unavailable Unavail able Encounter Details Date Type Department Care Team (Late st Contact Info) Description 05/21/2023 Abstract [facility] MEDICINE 230 [place] [address] Brandie Evangelista DO 230 [place], [place] [phone] Social History Tobacco Use Types Packs/Day Years [...] as of this encounter Care Teams Director Of Residence Life Relationship Specialty Start Date End Date Brandie Evangelista DO 230 [place] [address] PCP - General Family Medicine 04/04/13 Ed Evans, PharmD 230 [place] [address] Pharmacist Internal Medicine 12/10/22 07/04/23 Laney Jha 01/26/18 documented as of this encounter
--- OUTSIDE RECORDS SUMMARY | 2025-04-12 15:57 | XMS_ITS | Encounter Summary ---
Author Organization [employer] Address [address] [facility] [address] [address] Care Team Providers Care Processor Solid Propellant Name Role Phone Brandie Evangelista DO Primary Care Provider +1 [phone] Reason for Visit * Reason Comments Med Refill Encounter Details Date Type Department Care Team ([facility] st Contact Info) Description 04/03/2024 Refill [facility] MEDICINE 230 [place], [place] [phone] Brandie Evangelista DO 230 [place], [place] [phone] Seasonal allergic rhinitis, unspecified trigger Social History [...] documented as of this encounter Care Teams Processor Solid Propellant Relationship Specialty Start Date End Date rBandie Evangelista DO [address] [place] [address] PCP - General Family Medicine 04/04/13 Laney Jha 01/26/18 documented as of this encounter
--- OUTSIDE RECORDS SUMMARY | 2025-04-12 15:57 | XMS_ITS | Encounter Summary ---
Author Organization [employer] Address [address] [facility] 7[place] [address] Care Team Providers Care Electromechanical Assembler Name Role Phone Brandie Evangelista DO Primary Care Provider + [phone] Reason for Visit * Reason Comments Med Refill Encounter Details Date Type Department Care Team ([facility] st Contact Info) Description 05/01/2024 Refill [facility] MEDICINE 230 [place] [address] Brandie Evangelista DO 230 [place], [place] [phone] Social History Tobacco Use Types Packs/Day Years [...] documented as of this encounter Care Teams Electromechanical Assembler Relationship Specialty Start Date End Date Brandie Evangelista DO [address] [place] [address] PCP - General Family Medicine 04/04/13 Laney Jha 01/26/18 documented as of this encounter
--- OUTSIDE RECORDS SUMMARY | 2025-04-12 15:57 | XMS_ITS | Encounter Summary ---
Author Organization [employer] Address [address] [place] [address] 7[address] [place] [address] Care Team Providers Care Salesperson Meats Name Role Phone Brandie Evangelista DO Primary Care Provider +1- [phone] Ed Evans PharmD Unavailable Unavail able Reason for Visit * Reason Onset Date Comments Referral 12/14/2022 Renewal (Endocri nologist) Encounter Details Date Type Department Care Team ([facility] st Contact Info) Description 12/14/2022 Telephone [facility] MEDICINE 230 [place] [address] Brandie Evangelista DO 230 [place] [address] Referral (Renewal (Child Care Associate)) Social History Tobacco Use Types Packs/Day Years [...] patients daughter requesting for a renewal on plant utility person referral. Referral on nexgen 03/20/21. Referrals Date-N/A Time- N/A Address- [address] [facility] [address] [address] Specialty- Child Care Associate Fax: documented in this encounter Plan of [...] documented as of this encounter Care Teams Salesperson Meats Relationship Specialty Start Date End Date Brandie Evangelista DO 230 [place] [address] PCP - General Family Medicine 04/04/13 Ed Evans, PharmD 230 [place] [address] Pharmacist Internal Medicine 12/10/22 07/04/23 Laney Jha 01/26/18 documented as of this encounter
--- OUTSIDE RECORDS SUMMARY | 2025-04-12 15:57 | XMS_ITS | Encounter Summary ---
Author Organization [employer] Address [address] [facility] 7t [place] [address] Care Team Providers Care Planer Offbearer Name Role Phone Brandie Evangelista DO Primary Care Provider + [phone] Reason for Visit * Reason Comments Med Refill Encounter Details Date Type Department Care Team ([facility] st Contact Info) Description 10/27/2023 Refill [facility] MEDICINE 230 [place] [address] Dacia Baez MD 230 [place], [place] [phone] Social History Tobacco Use Types Packs/Day Years [...] documented as of this encounter Care Teams Planer Offbearer Relationship Specialty Start Date End Date Brandie Evangelista DO [address] [place] [address] PCP - General Family Medicine 04/04/13 Laney Jha 01/26/18 documented as of this encounter
--- OUTSIDE RECORDS SUMMARY | 2025-04-12 15:57 | XMS_ITS | Encounter Summary ---
Author Organization [employer] Address [address] [place] [address] 7[address] [place] [address] Care Team Providers Care Scaffolder Name Role Phone Brandie Evangelista DO Primary Care Provider +1 [phone] Ed Evans PharmD Unavailable Unavail able Reason for Visit * Reason Comments Med Refill Encounter Details Date Type Department Care Team ([facility] st Contact Info) Description 04/26/2023 Refill [facility] MEDICINE 230 [place] [address] Brandie Evangelista DO 230 [place] [address] Swelling of both lower extremities Social History [...] Result Component 6.7( 12:07 PM EST) No DellogSrinivas christiansonis, PharmD documented as of this encounter Visit Diagnoses Diagnosis Swelling of both lower extremities documented in this encounter Additional Health Concerns Assessment Noted Time PHQ-9 Depression Total Score: 5 11/17/19 23 10:04 AM EDT documented as of this encounter Care Teams Scaffolder Relationship Specialty Start Date End Date Brandie Evangelista DO 230 [place] [address] PCP - General Family Medicine 04/04/13 Ed Evans PharmD 230 [place] [address] Pharmacist Internal Medicine 12/10/22 07/04/23 Laney Jha 01/26/18 documented as of this encounter
--- OUTSIDE RECORDS SUMMARY | 2025-04-12 15:57 | XMS_ITS | Encounter Summary ---
Author Organization [employer] Address [address] [place] [address] [address] [address] Care Team Providers Care Senior Tableau Developer Name Role Phone Brandie Evangelista DO Primary Care Provider +1 [phone] DelEd luong PharmD Unavailable Unavail able Reason for Visit * Reason Comments Med Refill Encounter Details Date Type Department Care Team ([facility] st Contact Info) Description 04/12/2023 Refill [facility] 230 [place] [address] Brandie Evangelista DO 230 [place] [address] Chronic obstructive pulmonary disease, unspecified COPD type [...] as of this encounter Care Teams Senior Tableau Developer Relationship Specialty Start Date End Date Brandie Evangelista DO 230 [place] [address] PCP - General Family Medicine 04/04/13 Ed Evans PharmD 230 [place] [address] Pharmacist Internal Medicine 12/10/22 07/04/23 Laney Jha 01/26/18 documented as of this encounter
--- OUTSIDE RECORDS SUMMARY | 2025-04-12 15:57 | XMS_ITS | Encounter Summary ---
Author Organization [employer] Address [address] [place] [address] 7[address] [place] [address] Care Team Providers Care Housing Inspector Name Role Phone Brandie Evangelista DO Primary Care Provider + [phone] Reason for Visit * Reason Comments Med Refill Encounter Details Date Type Department Care Team ([facility] st Contact Info) Description 10/27/2023 Refill [facility] MEDICINE 230 [place], [place] [phone] Brnadie Evangelista DO 230 [place], [place] [phone] Anemia, unspecified type Social History Tobacco Use [...] documented as of this encounter Care Teams Housing Inspector Relationship Specialty Start Date End Date Brandie Evangelista DO [address] [place] [address] PCP - General Family Medicine 04/04/13 Laney Jha 01/26/18 documented as of this encounter
== END 2025-04-12 14:58 | disposition home or self-care (01) ==
LOC: HO.HUSH 13:52
PROVIDERS: PCP Family Medicine; Visit Provider Urology
DX: N40.0 Benign prostatic hyperplasia without lower urinary tract symptoms (principal); Z12.5 Encounter for screening for malignant neoplasm of prostate
CPT/HCPCS: 99213; G2211

== ENCOUNTER → 2025-04-12 13:52 | Outpatient (BNVA) | payer OTHER, SELFPAY | PROVIDERS: PCP Family Medicine; Visit Provider Urology | DX: N40.0 Benign prostatic hyperplasia without lower urinary tract symptoms (principal); Z12.5 Encounter for screening for malignant neoplasm of prostate | CPT/HCPCS: 51798; 81003; 99212 ==

== ENCOUNTER 2025-05-22 14:28 | Outpatient (AMB) | payer OTHER, SELFPAY ==
--- OUTSIDE RECORDS SUMMARY | 2024-01-12 07:30 | XMS_ITS ---
Author Organization [facility] Address [address] [place] [address] Care Team Providers Care Security Consultant Name Role Phone Tonja Weinberg, Brandie Primary Care Provider Kiara Dennys Tony [phone] REASON FOR VISIT screening,hx polyps Encounters Encounter Location Date Provider [place] [facility] [facility] [place] [address], [place] [id number] 01/12/2024 Dennys Kimbrough Plan Of Treatment No Information Progress Notes * PAUL CONNELL ADOB:1950 ( 75 yo M)Acc No.[id number]:01/12/2024 COLON WITH MAC Patient: PAUL WHITEHEAD Provider: Steven Kimbrough MD :[id number] A ge:73 Y S ex:Male Date:01/12/2024 Address:[address] [place], [place] [id number] Pcp:Brandie Evangelista M.D. Subjective: * Chief Complaints: * 1 . Screening,hx polyps. * Medical History: Objective: * Vitals: Assessment: Plan: * Treatment: * * The named appointment provid er may or may not be the originator of this progress note, and it is not deemed complete until electronically signed by the appointment provider. Sign off status: Pending * Provider: Steven Kimbrough MD Date: 0 01/12/2024 Generated for Lisandro means/Moustapha/Dilan on: 06:49 PM EDT
--- OUTSIDE RECORDS SUMMARY | 2024-10-18 07:20 | XMS_ITS ---
Author Organization [facility] Address [address] [place] [address] Care Team Providers Care Direct Care Counselor Name Role Phone Tonja Weinberg, Brandie Primary Care Provider Kiara Dennys Tony [phone] REASON FOR VISIT screening,hx polyps Encounters Encounter Location Date Provider Diagnosis [facility] [place] [address] [place], [place] [phone] 10/18/2024 Dennys Kimbrough Colon cancer scree camille Z12.11 ; Personal history of colonic polyps Z86.0100 ; Colon polyps K63.5 and Diverticulosis of large intestine without perforation or abscess without bleeding K57.30 Assessments Encounter Date Diagnosis (ICD Code) Assessment Notes Treatment Notes Treatment Clinical Notes Section Notes 10/18/2024 Colon cancer screening (ICD-10 - Z12.11) 10/18/2024 Personal history of colonic polyps (ICD-10 - Z86.0100) 10/18/2024 Colon polyps (ICD-10 - K63.5) 10/18/2024 Diverticulosis of large intestine without perforation or abscess without bleeding (ICD-10 - K57.30) Plan Of Treatment No Information Progress Notes * PAUL CONNELL ADOB:1950 ( 75 yo M)Acc No.[id number]:10/18/2024 COLON WITH MAC Patient: PAUL WHITEHEAD Provider: Steven Kimbrough MD :1950 A ge:74 Y S ex:Male Date:10/18/2024 Address:[address] [place], [place] [phone] Pcp:Brandie Evangelista M.D. Subjective: * Chief Complaints: * 1 . Screening,hx polyps. * Medical History: Objective: * Vitals: Assessment: * Assessment: 1. C olon cancer screening - Z12.11 (Primary) 2 . P ersonal history of colonic polyps - Z86.0100 3 . C olon polyps - K63.5 4 . D iverticulosis of large intestine without perforation or abscess without bleeding - K57.30 Plan: * Treatment: * Procedure Codes: 4 5385 LESION REMOVAL COLONOSCOPY, 47724 COLONOSCOPY AND BIOPSY, Modifiers: 59 , 0529F INTRVL 3+YRS PTS CLNSCP DOCD, 0528F RCMND FLW-UP 10 YRS DOCD, Modifiers: 1P * * The named appointment provid er may or may not be the originator of this progress note, and it is not deemed complete until electronically signed by the appointment provider. Sign off status: Pending * Provider: Steven Kimbrough MD Date: 0 10/18/2024 Generated for Lisandro means/Moustapha/Abhijeetitting on: 1 06:49 PM EDT
[2025-05-22 14:37] VITALS: BP 130/74; PULSE 79; O2SAT 96; BMI 32.5
--- NOTE | 2025-05-22 14:37 | MHC.OFFVIS ---
Vital Signs 05/22/25 14:37 Height 5 ft 8.5 in Weight 217 lb 2.485 oz BMI 32.5 BP 130/74 Blood Pressure Location Lt brachial Position Sitting Pulse 79 Pulse Source Pulse Oximeter Pulse Oximetry (%) 96 Oxygen Delivery Method Room Air Intake Visit Reasons: Shortness of breath Intake Note: pt is here for follow up and states he has short of breath with exertion. Cnmt Required: No Tar Distillation Supervisor: Tar Distillation Supervisor offered & declined Allergies No Known Allergies Allergy (Verified 05/22/25 15:09) Medication List - Last Reconciled 05/22/25 by Ibis Peralta MD acetaminophen ER 650 mg PO TID PRN albuterol sulfate 90 mcg/actuation (Ventolin HFA) 2 puffs inhalation Q4-6H PRN albuterol sulfate 2.5 mg continuous nebulization TID PRN ascorbic acid (vitamin C) (Vitamin C) 500 mg PO DAILY aspirin 1 tab PO DAILY Held on 11/23/23. Instructions: Resume on 11/30/23. atorvastatin 40 mg PO DAILY budesonide-formoterol 160-4.5 mcg/actuation (Symbicort) 2 puffs inhalation BID bupropion HCl XL 300 mg PO DAILY cetirizine 10 mg PO DAILY cholecalciferol (vitamin D3) (Vitamin D3) 50 mcg PO DAILY clonidine HCl 0.2 mg PO BEDTIME docusate sodium 100 mg PO BID duloxetine 120 mg PO DAILY ferrous sulfate (FeroSul) 325 mg PO BID finasteride (Proscar) 5 mg PO DAILY 90 days furosemide 40 mg PO DAILY gabapentin 100 mg PO DAILY hydralazine 100 mg PO TID isosorbide mononitrate ER 120 mg PO DAILY levothyroxine 75 mcg PO DAILY@0600 meclizine 25 mg PO TID metformin 1 tab PO TIDWMEAL metoprolol succinate ER 200 mg PO DAILY montelukast 10 mg PO BEDTIME lvrounfl-gnv-SG-lycopen-lutein 0.4 mg-300 mcg- 250 mcg (Cerovite Senior) 1 tab PO DAILY nitroglycerin 0.4 mg sublingual NEEDED PRN polyethylene glycol 3350 17 grams PO DAILY quetiapine 100 mg BEDTIME temazepam 30 mg PO BEDTIME PRN tramadol 50 mg PO DAILY PRN trazodone 150 mg PO BEDTIME PRN triamcinolone acetonide 0.1% 1 appl topical DAILY Do you need a note to return to daycare/school/sports/work: No HPI HPI Shortness of breath: Details: THIS 75 YEARS OLD GENTLEMAN WITH GROSS OBESITY, ROUND FACE AND SHORT NECK, HAS DIAGNOSIS OF OBSTRUCTIVE SLEEP APNEA BUT HAS NOT BEEN ABLE TO USE CPAP AT ALL. HE IS HERE FOR FOLLOW-UP AND COMPLAINS OF FREQUENT BOUTS OF COUGH WITH TIGHTNESS IN HIS CHEST ESPECIALLY AT NIGHT. HE IS WAKING UP AT LEAST 3 TIMES AT NIGHT. HE FEELS TIRED AND SLEEPY DURING THE DAYTIME. HE DENIES SMOKING CIGARETTE AT THIS TIME, AND ALSO DENIES USING ANY ILLICIT DRUGS. HIS MAIN COMPLAINT IS INTERMITTENT COUGH AND GETTING SHORT OF BREATH ON ANY PHYSICAL EXERTION. [facility] Medical History Sleep apnea Thyroid disease Depression LUCA (obstructive sleep apnea) Obesity (BMI 30-39.9) Lipoma of neck Coronary artery disease Chronic low back pain Asthma Hyperlipidemia BPH (benign prostatic hyperplasia) Diabetes Personal history of COVID-19 Hypertension Allergic rhinitis COPD (chronic obstructive pulmonary disease) Surgical History History of surgery of head Hx of shoulder surgery Hx of umbilical hernia repair History of surgery Hx of bilateral cataract extraction Hx of cardiac catheterization Hx of circumcision History of esophagogastroduodenoscopy (EGD) H/O colonoscopy Family History Mother No problems noted. Father No problems noted. Social History Household Members: None Housing: Apartment Are you a primary child care center assistant director to a significant other at home: No Do you presently have visiting nurse or other home services: Yes (EASTERN PHILOSOPHY PROFESSOR daily) 75 years or older and lives alone: No Alcohol intake: never Patient Tobacco Use Status: Never used Tobacco Advance Directives Date on File: 05/14/20 service: No Review of Systems Const All systems reviewed & are unremarkable except as noted in HPI and below Eyes Reports no additional complaints ENT Reports nasal congestion (ALL THE TIMES) and Reports post nasal drip Card Denies chest pain, Denies irregular heart rhythm and Reports dyspnea on exertion Resp Reports cough (frequent) and Reports dyspnea on exertion GI Reports no additional complaints Musc Reports no additional complaints Neuro Reports no additional complaints Psych Reports depression Physical Exam Vital Signs: Last Vital Signs Pulse 79 05/22/25 14:37 BP 130/74 05/22/25 14:37 Pulse Ox 96 05/22/25 14:37 Oxygen Delivery Method Room Air 05/22/25 14:37 BMI result Body Mass Index 32.5 Const Other: HE IS GROSSLY OBESE, WITH A ROUND FACE, NARROW OROPHARYNX, MALLAMPATI CLASS 4 NECK CIRCUMFERENCE 18 IN' General: comfortable, no acute distress, alert and awake Orientation/consciousness: patient oriented x3 HEENT Head: Yes normal to inspection General nose exam: No nasal polyps present, No nasal discharge present and Abnormal mucous membranes and turbinates present (NASAL TURBINATES ARE HYPERTROPHIC) Face and sinus: Yes sinuses nontender Mouth: oropharynx normal Throat: Yes posterior oropharynx normal Eyes General: appearance normal, both eyes and all related structures Neck Neck: Yes normal visual inspection, Yes no lymphadenopathy, Yes trachea midline, Yes no JVD and Yes other (Neck circumference 18 in, a golf ball sized lipoma on left side of the neck) Thyroid: Thyroid normal Chest Chest palpation & inspection: normal inspection of the chest, normal palpation of entire chest wall and no tenderness Resp Other: Percussion note resonant, breath sounds are distant with prolonged expiratory phase. No wheezes or creps. are herad . Cardio Palpation: PMI not normal (Not palpable.) Rate: regular rate Rhythm: regular rhythm Heart sounds: no gallops and no murmurs GI Palpation (GI): Soft to palpation, nontender, No hepatosplenomegaly present, no masses and Other GI palpation findings present (Abdomen is obese and protuberant) Auscultation: normal bowel sounds Back/Spine/Pelvis Thoracic/Lumbar Spine: thoracic and lumbar spine normal to inspection Skin General skin exam: no rashes or lesions noted Neuro General: patient oriented x3 and no focal motor deficits Cranial nerves: Yes CN's II-XII intact bilaterally Extrem General: Yes normal to inspection, Yes no clubbing, cyanosis or edema and Yes no calf tenderness Psych Appearance: grossly normal and well kempt Speech and movement: Normal speech and movement present Assessment & Plan Assessment & Plan (1) COPD (chronic obstructive pulmonary disease): Comment: CLINICALLY HAS MODERATELY SEVERE OBSTRUCTIVE AIRWAY DISORDER. HE IS DOING FAIRLY WELL ON HIS CURRENT MEDICAL REGIMEN. STILL GETS SOME BREAKTHROUGH USE AND COMPLAINS OF FREQUENT BOUTS OF COUGH ESPECIALLY AT NIGHT, WHICH I THINK IS MORE DUE TO HIS UNTREATED SLEEP APNEA DENIES SMOKING. Code(s): J44.9 - Chronic obstructive pulmonary disease, unspecified Category: Medical Plan: CONTINUE SYMBICORT 160-4.52 PUFFS B.I.D. AND ALBUTEROL HFA 2 PUFFS Q 4-6 HOURS P.R.N., (2) LUCA (obstructive sleep apnea): Comment: Longstanding history of obstructive sleep apnea, has remained non compliant most of the times and his CPAP device was taken away due to noncompliance. Claims that he has some difficulty in sleeping at night. Code(s): G47.33 - Obstructive sleep apnea (adult) (pediatric) Category: Medical Plan: AGAIN ADVISED THAT HE NEEDS TO LOSE WEIGHT BUT THIS SEEMS TO BE ON REALISTIC EXPECTATION IN HIS CASE (3) Allergic rhinitis: Comment: IT HAS BEEN A CHRONIC PROBLEM. HE PROBABLY HAS MULTIPLE ENVIRONMENTAL ALLERGIES. Code(s): J30.9 - Allergic rhinitis, unspecified Category: Medical Plan: CONTINUE TO USE CETIRIZINE 10 MG ONCE A DAY P.R.N., HE IS NOT ABLE TO USE FLONASE (4) Obesity (BMI 30-39.9): Comment: Remains grossly obese, this is a chronic problem, He is trying to limit the calories intake, and also encouraged to start walking on a daily basis. Code(s): E66.9 - Obesity, unspecified Category: Medical Plan: ABOVE Coding Level of Care Code Est Pt Level 3 (78069) Diagnoses COPD (chronic obstructive pulmonary disease) J44.9 LUCA (obstructive sleep apnea) G47.33 Allergic rhinitis J30.9 Obesity (BMI 30-39.9) E66.9
--- OUTSIDE RECORDS SUMMARY | 2025-05-22 18:48 | XMS_ITS | Encounter Summary ---
Author Organization [employer] Address [address] [facility] 7t [place] [address] Care Team Providers Care Pressroom Worker Name Role Phone Brandie Evangelista DO Primary Care Provider +1 [phone] Reason for Visit * Reason Comments Med Refill Encounter Details Date Type Department Care Team ([facility] st Contact Info) Description 11/15/2024 Refill [facility] MEDICINE 230 [place] [address] Brandie Evangelista DO 230 [place], [place] [phone] Chest pain, unspecified type Social History Tobacco [...] is your housing situation today? I have lcarissa barnard 05/19/[address] [...] documented as of this encounter Care Teams Pressroom Worker Relationship Specialty Start Date End Date Brandie Evangelista DO [address] [place] [address] PCP - General Family Medicine 04/04/13 Laney Jha 01/26/18 documented as of this encounter
--- OUTSIDE RECORDS SUMMARY | 2025-05-22 18:49 | XMS_ITS | Encounter Summary ---
Author Organization [employer] Address [address] [place] [address] 7 [place] [address] Care Team Providers Care Travel Nurse Name Role Phone Brandie Evangelista DO Primary Care Provider +1 [phone] Reason for Visit * Reason Onset Date Comments Pre-op Exam 04/19/2024 Encounter Details Date Type Department Care Team ([facility] st Contact Info) Description 04/19/2024 Telephone [facility] MEDICINE 230 [place] [address] Brandie Evangelista DO 230 [place], [place] [phone] Pre-op Exam Social History Tobacco Use Types [...] documented as of this encounter Care Teams Travel Nurse Relationship Specialty Start Date End Date Brandie Evangelista DO 230 [place] [address] PCP - General Family Medicine 04/04/13 Laney Jha 01/26/18 documented as of this encounter
--- OUTSIDE RECORDS SUMMARY | 2025-05-22 18:49 | XMS_ITS | Encounter Summary ---
Author Organization [employer] Address [address] [facility] 7[address] [place] [address] Care Team Providers Care Ball Sorter Name Role Phone Brandie Evangelista DO Primary Care Provider + [phone] Reason for Visit * Reason Comments Med Refill Encounter Details Date Type Department Care Team ([facility] st Contact Info) Description 05/03/2024 Refill [facility] MEDICINE 230 [place] [address] Brandie Evangelista DO 230 [place], [place] [phone] Social History Tobacco Use Types Packs/Day Years [...] documented as of this encounter Care Teams Ball Sorter Relationship Specialty Start Date End Date Brandie Evangelista DO [address] [place] [address] PCP - General Family Medicine 04/04/13 Laney Jha 01/26/18 documented as of this encounter
--- OUTSIDE RECORDS SUMMARY | 2025-05-22 18:49 | XMS_ITS | Encounter Summary ---
Author Organization [employer] Address [address] [facility] [address] [address] Care Team Providers Care Lyft Driver Name Role Phone Brandie Evangelista DO Primary Care Provider +1 [phone] Reason for Visit * Reason Comments Med Refill Encounter Details Date Type Department Care Team ([facility] st Contact Info) Description 12/08/2023 Refill [facility] MEDICINE 230 [place] [address] Brandie Evangelista DO 230 [place], [place] [phone] Social History Tobacco Use Types Packs/Day Years [...] documented as of this encounter Care Teams Lyft Driver Relationship Specialty Start Date End Date Brandie Evangelista DO [address] [place] [address] PCP - General Family Medicine 04/04/13 Laney Jha 01/26/18 documented as of this encounter
--- OUTSIDE RECORDS SUMMARY | 2025-05-22 18:49 | XMS_ITS | Encounter Summary ---
Author Organization [employer] Address [address] [facility] 7t [place] [address] Care Team Providers Care Guillotine Trimmer Name Role Phone Brandie Evangelista DO Primary Care Provider +1 [phone] Reason for Visit * Reason Comments Med Refill Encounter Details Date Type Department Care Team ([facility] st Contact Info) Description 03/07/2025 Refill [facility] MEDICINE 230 [place], [place] [phone] Brandie Evangelista DO 230 [place], [place] [phone] Seasonal allergic rhinitis, unspecified trigger; Chest pain, [...] documented as of this encounter Care Teams Guillotine Trimmer Relationship Specialty Start Date End Date Brandie Evangelista DO 230 [place] [address] PCP - General Family Medicine 04/04/13 Laney Jha 01/26/18 documented as of this encounter
--- OUTSIDE RECORDS SUMMARY | 2025-05-22 18:49 | XMS_ITS | Encounter Summary ---
Author Organization [employer] Address [address] [facility] [address] [place] [address] Care Team Providers Care Meteorological Engineer Name Role Phone Brandie Evangelista DO Primary Care Provider +1 [phone] Reason for Visit * Reason Comments Med Refill Encounter Details Date Type Department Care Team ([facility] st Contact Info) Description 12/15/2023 Refill [facility] MEDICINE 230 [place] [address] Brandie Evangelista DO 230 [place], [place] [phone] Social History Tobacco Use Types Packs/Day Years [...] documented as of this encounter Care Teams Meteorological Engineer Relationship Specialty Start Date End Date Brandie Evangelista DO [address] [place] [address] PCP - General Family Medicine 04/04/13 Laney Jha 01/26/18 documented as of this encounter
--- OUTSIDE RECORDS SUMMARY | 2025-05-22 18:49 | XMS_ITS | Encounter Summary ---
Author Organization [employer] Address [address] [place] [address] 7 [place] [address] Care Team Providers Care Steward/Stewardess Smoke Room Name Role Phone Brandie Evangelista DO Primary Care Provider +1 [phone] Reason for Visit * Reason Onset Date Comments Med Refill Appointment Confirmation 11/23/2023 Encounter Details Date Type Department Care Team ([facility] st Contact Info) Description 11/23/2023 Refill [facility] MEDICINE 230 [place] [address] Brandie Evangelista DO 230 [place] [address] Social History Tobacco Use Types Packs/Day Years [...] 9:43 AM EDT TC to pt using [employer] Animal Geneticist ID# [id number]. Per MD request, pt scheduled for HDF OV 11/30 at 215. Pt stated PM appointments are preferable as he needs help from his GENERAL MEDICAL PRACTITIONER. Pt confirms understanding ofplan and has [facility] contact information. documented in this encounter [...] documented as of this encounter Care Teams Steward/Stewardess Smoke Room Relationship Specialty Start Date End Date Brandie Evangelista DO [address] [place] [address] PCP - General Family Medicine 04/04/13 Laney Jha 01/26/18 documented as of this encounter
--- OUTSIDE RECORDS SUMMARY | 2025-05-22 18:49 | XMS_ITS | Encounter Summary ---
Author Organization [employer] Address [address] [facility] 7t [place] [address] Care Team Providers Care Excellence Consultant Name Role Phone Brandie Evangelista DO Primary Care Provider +1 [phone] Reason for Visit * Reason Comments Med Refill Encounter Details Date Type Department Care Team ([facility] st Contact Info) Description 07/14/2023 Refill [facility] MEDICINE 230 [place], [place] [phone] Brandie Evangelista DO 230 [place], [place] [phone] Social History Tobacco Use Types Packs/Day Years [...] documented as of this encounter Care Teams Excellence Consultant Relationship Specialty Start Date End Date Brandie Evangelista DO 230 [place] [address] PCP - General Family Medicine 04/04/13 Laney Jha 01/26/18 documented as of this encounter
--- OUTSIDE RECORDS SUMMARY | 2025-05-22 18:49 | XMS_ITS | Encounter Summary ---
Author Organization [employer] Address [address] [place] [address] [address] [place] [address] Care Team Providers Care Information Engineer Name Role Phone Brandie Evangelista DO Primary Care Provider [phone]- [phone] Ed Evans PharmD Unavailable Unavail able Encounter Details Date Type Department Care Team (Late st Contact Info) Description 09/01/2022 Orders Only [facility] [address] [place] [address] Brandie Thomas LPN Social History Tobacco Use [...] on filedocumented in this encounter Care Teams Information Engineer Relationship Specialty Start Date End Date Brandie Evangelista DO [address] [place] [address] PCP - General Family Medicine 04/04/13 Ed Evans, PharmD [address] [place] [address] Pharmacist Internal Medicine 12/10/22 07/04/23 Laney Jha 01/26/18 documented as of this encounter
--- OUTSIDE RECORDS SUMMARY | 2025-05-22 18:49 | XMS_ITS | Encounter Summary ---
Author Organization [employer] Address [address] [place] [address] [address] [place] [address] Care Team Providers Care Motor Vehicle Or Caravan Salesperson Name Role Phone Brandie Evangelista DO Primary Care Provider +1- [phone] Ed Evans PharmD Unavailable Unavail able Encounter Details Date Type Department Care Team (Late st Contact Info) Description 08/11/2022 Orders Only [facility] [address] [place] [address] Brandie Thomas LPN Social History Tobacco Use [...] on filedocumented in this encounter Care Teams Motor Vehicle Or Caravan Salesperson Relationship Specialty Start Date End Date Brandie Evangelista DO [address] [place] [address] PCP - General Family Medicine 04/04/13 Ed Evans, PharmD [address] [place] [address] Pharmacist Internal Medicine 12/10/22 07/04/23 Laney Jha 01/26/18 documented as of this encounter
--- OUTSIDE RECORDS SUMMARY | 2025-05-22 18:49 | XMS_ITS | Encounter Summary ---
Author Organization [employer] Address [address] [facility] 7t [place] [address] Care Team Providers Care Public Administration Professor Name Role Phone Brandie Evangelista DO Primary Care Provider +1 [phone] Reason for Visit * Reason Comments Med Refill Encounter Details Date Type Department Care Team ([facility] st Contact Info) Description 08/09/[address] [facility] [address] [place], [place] [phone] Brandie Evangelista DO [address] [place], [place] [phone] Type 2 diabetes mellitus with other specified [...] complication, without long-term current use of insulin (HCC) Muscle spasm Spasm of muscle Swelling of both lower extremities Anemia, unspecified type documented in this encounter Additional Health Concerns Assessment Noted Time PHQ-9 Depression Total Score: 5 11/17/19 23 10:04 AM EDT documented as of this encounter Care Teams Public Administration Professor Relationship Specialty Start Date End Date Brandie Evangelista DO [address] [place] [address] PCP - General Family Medicine 04/04/13 Laney Jha 01/26/18 documented as of this encounter
--- OUTSIDE RECORDS SUMMARY | 2025-05-22 18:49 | XMS_ITS | Encounter Summary ---
Author Organization [employer] Address [address] [place] [address] [address] [place] [address] Care Team Providers Care Recycling Crew Supervisor Name Role Phone Brandie Evangelista DO Primary Care Provider +1- [phone] Ed Evans PharmD Unavailable Unavail able Encounter Details Date Type Department Care Team (Late st Contact Info) Description 08/11/2022 Orders Only [facility] [address] [place] [address] Hellen Dick LPN Social History Tobacco Use [...] on filedocumented in this encounter Care Teams Recycling Crew Supervisor Relationship Specialty Start Date End Date Brandie Evangelista DO [address] [place] [address] PCP - General Family Medicine 04/04/13 Ed Evans, PharmD [address] [place] [address] Pharmacist Internal Medicine 12/10/22 07/04/23 Laney Jha 01/26/18 documented as of this encounter
--- OUTSIDE RECORDS SUMMARY | 2025-05-22 18:49 | XMS_ITS | Encounter Summary ---
Author Organization [employer] Address [address] [place] [address] 7 [place] [address] Care Team Providers Care Apprentice Plumber Name Role Phone Brandie Evangelista DO Primary Care Provider [phone]- [phone] Ed Evans PharmD Unavailable Unavail able Encounter Details Date Type Department Care Team (Late st Contact Info) Description 07/13/2022 Orders Only [facility] 230 [place] [address] Hellen Dick LPN Social History Tobacco Use [...] on filedocumented in this encounter Care Teams Apprentice Plumber Relationship Specialty Start Date End Date Brandie Evangelista DO [address] [place] [address] PCP - General Family Medicine 04/04/13 Ed Evans, PharmD [address] [place] [address] Pharmacist Internal Medicine 12/10/22 07/04/23 Laney Jha 01/26/18 documented as of this encounter
--- OUTSIDE RECORDS SUMMARY | 2025-05-22 18:49 | XMS_ITS | Encounter Summary ---
Author Organization [employer] Address [address] [facility] [address] [place] [address] Care Team Providers Care Ballet Soloist Name Role Phone Brandie Evangelista DO Primary Care Provider [phone] Reason for Visit * Reason Comments Med Refill Encounter Details Date Type Department Care Team ([facility] st Contact Info) Description 01/22/2024 Refill [facility] [address] [place], [place] [phone] Brandie Evangelista DO 230 [place], [place] [phone] Social History Tobacco Use Types Packs/Day Years [...] documented as of this encounter Care Teams Ballet Soloist Relationship Specialty Start Date End Date Brandie Evangelista DO [address] [place] [address] PCP - General Family Medicine 04/04/13 Laney Jha 01/26/18 documented as of this encounter
--- OUTSIDE RECORDS SUMMARY | 2025-05-22 18:49 | XMS_ITS | Encounter Summary ---
Author Organization [employer] Address [address] [facility] 7[address] [place] [address] Care Team Providers Care Guncotton Packer Name Role Phone Brandie Evangelista DO Primary Care Provider [phone] [phone] Reason for Visit * Reason Comments Med Refill Encounter Details Date Type Department Care Team ([facility] st Contact Info) Description 03/06/2024 Refill [facility] [address] [place] [address] Brandie Evangelista DO 230 [place], [place] [phone] Social History Tobacco Use Types Packs/Day Years [...] documented as of this encounter Care Teams Guncotton Packer Relationship Specialty Start Date End Date Brandie Evangelista DO [address] [place] [address] PCP - General Family Medicine 04/04/13 Laney Jha 01/26/18 documented as of this encounter
--- OUTSIDE RECORDS SUMMARY | 2025-05-22 18:49 | XMS_ITS | Encounter Summary ---
Author Organization [employer] Address [address] [facility] [address] [place] [address] Care Team Providers Care Resource Conservation Manager Name Role Phone Brandie Evangelista DO Primary Care Provider [phone] Reason for Visit * Reason Comments Med Refill Encounter Details Date Type Department Care Team ([facility] st Contact Info) Description 03/06/2024 Refill [facility] 230 [place] [address] Brandie Evangelista DO 230 [place], [place] [phone] Social History Tobacco Use Types Packs/Day Years [...] documented as of this encounter Care Teams Resource Conservation Manager Relationship Specialty Start Date End Date Brandie Evangelista DO [address] [place] [address] PCP - General Family Medicine 04/04/13 Laney Jha 01/26/18 documented as of this encounter
--- OUTSIDE RECORDS SUMMARY | 2025-05-22 18:49 | XMS_ITS | Encounter Summary ---
Author Organization [employer] Address [address] [facility] [address] [place] [address] Care Team Providers Care Cone Tender Name Role Phone Brandie Evangelista DO Primary Care Provider [phone] [phone] Reason for Visit * Reason Comments Med Refill Encounter Details Date Type Department Care Team ([facility] st Contact Info) Description 11/30/2023 Refill [facility] 230 [place] [address] Brandie Evangelista DO [address] [place], [place] [phone] Social History Tobacco Use Types Packs/Day Years [...] documented as of this encounter Care Teams Cone Tender Relationship Specialty Start Date End Date Brandie Evangelista DO [address] [place] [address] PCP - General Family Medicine 04/04/13 Laney Jha 01/26/18 documented as of this encounter
--- OUTSIDE RECORDS SUMMARY | 2025-05-22 18:49 | XMS_ITS | Encounter Summary ---
Author Organization [employer] Address [address] [facility] [address] [place] [address] Care Team Providers Care Field Pipe Lines Supervisor Name Role Phone Brandie Evangelista DO Primary Care Provider + [phone] Reason for Visit * Reason Comments Med Refill Encounter Details Date Type Department Care Team ([facility] st Contact Info) Description 05/01/2024 Refill [facility] 230 [place] [address] Brandie Evangelista DO 230 [place], [place] [phone] Social History Tobacco Use Types Packs/Day Years [...] as of this encounter Care Teams Field Pipe Lines Supervisor Relationship Specialty Start Date End Date Brandie Evangelista DO [address] [place] [address] PCP - General Family Medicine 04/04/13 Laney Jha 01/26/18 documented as of this encounter
--- OUTSIDE RECORDS SUMMARY | 2025-05-22 18:49 | XMS_ITS | Encounter Summary ---
Author Organization [employer] Address [address] [facility] [address] [address] Care Team Providers Care Surgery Technician Name Role Phone Brandie Evangelista DO Primary Care Provider [phone] Reason for Visit * Reason Comments Med Refill Encounter Details Date Type Department Care Team ([facility] st Contact Info) Description 11/25/2023 Refill [facility] 230 [place] [address] Brandie Evangelista DO 230 [place], [place] [phone] Social History Tobacco Use Types Packs/Day Years [...] documented as of this encounter Care Teams Surgery Technician Relationship Specialty Start Date End Date Brandie Evangelista DO [address] [place] [address] PCP - General Family Medicine 04/04/13 Laney Jha 01/26/18 documented as of this encounter
--- OUTSIDE RECORDS SUMMARY | 2025-05-22 18:49 | XMS_ITS | Encounter Summary ---
Author Organization [employer] [facility] Address [address] [place] [address] Care Team Providers Care Continuous Improvement Engineer Name Role Phone Brandie Evangelista DO Primary Care Provider Ed Evans PharmD Unavailable Unavail able Encounter Details Date Type Department Care Team (Late st Contact Info) Description 09/07/2022 Abstract [facility] [address] [place] [address] Brandie Evangelista DO [address] [place] [address] Social History Tobacco Use Types Packs/Day Years [...] on filedocumented in this encounter Care Teams Continuous Improvement Engineer Relationship Specialty Start Date End Date Brandie Evangelista DO [address] [place] [address] PCP - General Family Medicine 04/04/13 Ed Evans, PharmD [address] [place] [address] Pharmacist Internal Medicine 12/10/22 07/04/23 Laney Jha 01/26/18 documented as of this encounter
--- OUTSIDE RECORDS SUMMARY | 2025-05-22 18:49 | XMS_ITS | Encounter Summary ---
Author Organization [employer] Address [address] [facility] 7t [place] [address] Care Team Providers Care Java Developer Consultant Name Role Phone Brandie Evangelista DO Primary Care Provider [phone] [phone] Reason for Visit * Reason Comments Med Refill Encounter Details Date Type Department Care Team ([facility] st Contact Info) Description 03/02/2025 Refill [facility] [address] [place] [address] Brandie Evangelista DO [address] [place] [address] Dizziness; Asthma, unspecified asthma severity, unspecified whether [...] documented as of this encounter Care Teams Java Developer Consultant Relationship Specialty Start Date End Date Brandie Evangelista DO [address] [place] [address] PCP - General Family Medicine 04/04/13 Laney Jha 01/26/18 documented as of this encounter
--- OUTSIDE RECORDS SUMMARY | 2025-05-22 18:49 | XMS_ITS | Encounter Summary ---
Author Organization [employer] Address [address] [facility] [address] [place] [address] Care Team Providers Care Planer Mill Grader Name Role Phone Brandie Evangelista DO Primary Care Provider [phone] [phone] Reason for Visit * Reason Comments Med Refill Encounter Details Date Type Department Care Team ([facility] st Contact Info) Description 04/25/2024 Refill [facility] 230 [place] [address] Brandie Evangelista DO [address] [place], [place] [phone] Social History Tobacco Use Types Packs/Day Years [...] as of this encounter Care Teams Planer Mill Grader Relationship Specialty Start Date End Date Brandie Evangelista DO [address] [place] [address] PCP - General Family Medicine 04/04/13 Laney Jha 01/26/18 documented as of this encounter
--- OUTSIDE RECORDS SUMMARY | 2025-05-22 18:49 | XMS_ITS | Encounter Summary ---
Author Organization [employer] Address [address] [facility] [address] [place] [address] Care Team Providers Care Thermometer Maker Name Role Phone Brandie Evangelista DO Primary Care Provider [phone] [phone] Reason for Visit * Reason Comments Med Refill Encounter Details Date Type Department Care Team ([facility] st Contact Info) Description 01/17/2024 Refill [facility] [address] [place] [address] Brandie Evangelista DO 230 [place], [place] [phone] Social History Tobacco Use Types Packs/Day Years [...] documented as of this encounter Care Teams Thermometer Maker Relationship Specialty Start Date End Date Brandie Evangelista DO [address] [place] [address] PCP - General Family Medicine 04/04/13 Laney Jha 01/26/18 documented as of this encounter
--- OUTSIDE RECORDS SUMMARY | 2025-05-22 18:49 | XMS_ITS | Encounter Summary ---
Author Organization [employer] Address [address] [facility] 7t [place] [address] Care Team Providers Care Pain Coordinator Name Role Phone Brandie Evangelista DO Primary Care Provider +1 [phone] Reason for Visit * Reason Comments Med Refill Encounter Details Date Type Department Care Team ([facility] st Contact Info) Description 01/10/2025 Refill [facility] 230 [place], [place] [phone] Brandie Evangelista DO 230 [place], [place] [phone] Chronic obstructive pulmonary disease, unspecified COPD type [...] the past 12 months, has t he [employer], gas, oil or water company threatened to [...] Blood Pressure 194/104(08/30 2:52 PM EST) No Delag, Ed, PharmD Hemoglobin A1c < 7 Result Component 6.7( 12:07 PM EST) No Ed Evans, PharmD documented as of this encounter Visit Diagnoses Diagnosis Chronic obstructive pulmonary disease, unspecified COPD type (CMS/HCC) (HCC) Dizziness Dizziness and giddiness Asthma, unspecified asthma severity, unspecified whether complicated, unspecified whether persistent documented in this encounter Additional Health Concerns Assessment Noted Time PHQ-9 Depression Total Score: 16 024 9:38 AM EDT documented as of this encounter Care Teams Pain Coordinator Relationship Specialty Start Date End Date Brandie Evangelista DO [address] [place] [address] PCP - General Family Medicine 04/04/13 Laney Jha 01/26/18 documented as of this encounter
--- OUTSIDE RECORDS SUMMARY | 2025-05-22 18:49 | XMS_ITS | Data Portability ---
Author Organization [employer] [facility], [facility] Address [address] [place] [phone] Care Team Providers Care Pattern Gater Name Role Phone DANE MEYER Primary Care Provider Assessment Encounter Date Assessment Date Assessment LastModified by Organization Details LastModified Time 03/24/2023 03/24/2023 I provided real -time medical direction via phone for this encounter, and was available for additional phone based assistance as needed. I have reviewed and agree with the Assessment and Plan as documented by the [employer] Principal. Patient given the opportunity to ask questions. Medic spoke to the son via phone at my request and explained that med reconciliation and changing medications or removing medications that are prescribed for patient is beyond the purview of [facility] and this is something that needs to be done in conjunction with his PCP -I reached out to [facility] to email the care companion regarding the need to do this with the PCP please ever. I advised if develops CP/severe SOB/turning blue/uncontrolled n/v/d or black/bloody emesis or stool/ AMS/ syncope/ hi fever to call 911- patient verbalized understanding of instructions to the medic [email or web address] Not available 03/24/2023 16:21:35 Plan of Treatment Reminders Order Date Submit Date Provider Last Modified By Organization Details Last Modified Time Details Appointments None recorded. Lab BMP, serum or plasma 2022 023 [email or web address] 0 [facility], [address] [place] [address], [phone] 13:44:16 Referral None recorded. Procedures None recorded. Surgeries None recorded. Imaging None recorded. Medication Orders sodium chloride 0.9 % intravenous solution 2022 023 [email or web address] 0 Not available 13:44:16 Patient TargetsNo targets recorded. Patient Instructions Encounter Date Encounter Id Patient Instructions Last Modified By Organization Details Last Modified Time 03/24/2023 [id number] orthostatic vitals* - see vs [email or web address] Not available 03/24/2023 13:44:16 Reason for Referral None Reported. Results Created Date Observation Date Name Description Value Unit Range Abnormal Flag Note LastModifiedBy Organization Detail LastModifiedTime 03/24/2003/24/2023 BMP, serum or plasm a BUN 11 Not Available [facility] [address], [address] [place] [address] 03/24/2023 13:22:56 03/24/20 23 03/24/2023 BMP, serum or plasm a Ca Ionize d calciu m 1.25 Not Available [facility] - [address], [address] [place] [address] 03/24/2023 13:22:56 03/24/20 23 03/24/2023 BMP, serum or plasm a CI- 100 Not Available [facility] - [facility] [address], [address] [place] [address] 03/24/2023 13:22:56 03/24/20 23 03/24/2023 BMP, serum or plasm a CRE 0.9 Not Available [facility] [address], [address] [place] [address] 03/24/2023 13:22:56 03/24/20 23 03/24/2023 BMP, serum or plasm a GLU 231 Not Available [facility] [address], [address] [place] [address] 03/24/2023 13:22:56 03/24/20 23 03/24/2023 BMP, serum or plasm a K+ 3.8 Not Available [facility] [address], [address] [place] [address] 03/24/2023 13:22:56 03/24/20 23 03/24/2023 BMP, serum or plasm a Na+ 137 Not Available [facility] [address], [address] [place] [address] 03/24/2023 13:22:56 03/24/20 23 03/24/2023 BMP, serum or plasm a tCO2 25 Not Available [facility] - [facility] [address], [address] [place] [address] 03/24/2023 13:22:56 Result Notes None recorded. Medical [...] quetiapine 200 mg tablet TOME AIMEE TABLETA TO D AL ACOSTARSE active Not Available Not [...] HCl 0.2 mg tablet TOME AIMEE TABLETA D FOR 30 DAYS active Not Available Not Available No t Available tamsulosin 0.4 mg capsule active Not Available Not Available Not Available temazepam 30 mg capsule TOME AIMEE C PSULA D AL ACOSTARSE active Not Available Not [...] trazodone 150 mg tablet TOME AIMEE TABLETA TO D AL ACOSTARSE CUANDO SEA NECESARIO PARA [...] Body temperature Respiratory rate Heart rate Systolic And Diastolic Provider Name and Address Organization Details Last Updated DateTime 3 96 % 96 % 98.5 [degF] 18 /min 75 /min 150/86 mm[Hg] Not Available [facility] - production 3 13:08:48 Social History None recorded. Functional Status None recorded. Mental Status None recorded. Family History Nothing Reported. Medical History No medical history recorded. Past Encounters Encounter ID Performer Location Encounter Start Date Encounter Closed Date Diagnosis/Indication Diagnosis SNOMED-CT Code Diagnosis ICD10 Code Diagnosis IMO Codes Diagnosis Note [id number] Merry Tyler MD [facility] - [facility] [address] [place] [phone] 03/24/2023 13:08:46 03/24/2023 23:58:29 Lightheadedness [id number] R42 He was dizzy yesterday not today-Labs [...] Recorded Advance Directives Directive None Recorded Payers Insurance Date Sequence Insurance Name Policy Number Policy Denson Covered Member ID Denson Member ID Guarantor Name 03/23/2023 1 [facility] - DOS ON OR AFTER 2022 - DUAL ELIGIBLE - ALF OPTIONS AND ONE CARE (MEDICARE REPLACEMENT/ADV ANTAGE - HMO) Emory Cui [id number] Emory Cui Notes Date Note Type Note Provider Name and Address Organization Details Recorded Time 03/24/2023 text/html ROS as noted in the HPI HPI: Family called with concerns in patient [...] .................. .................. .................. .................. .................. .................. ............... [employer] Principal Note From Magdy Drake: Per [facility]: Family [...] assessment preformed found pt orthostatic, following called [facility] with report. P: [facility] Dr. Tyler was called and given report, Dr. Tyler ordered chem8 labs POC, and then once results are received will review with [facility]. Following chem8 Called Dr. Tyler with results of POC chem8 ordered 1 liter of normal saline to be given for dehydration and dizziness then following retake orthostatic bps and call with results. Also Dr. Tyler wants pt to make an appointment with PCP with son, son wants to reconcile pts medications which can be done with PCP. Red flags discussed [facility] clear. [facility] Lab Orders: BMP, serum or plasma: Performed .................. .................. .................. .................. .................. .................. .................. ............... Disposition: Fulfilled Merry Tyler MD [address] [facility],[address], [place], [phone], [employer] 03/24/2023 16:21:59
--- OUTSIDE RECORDS SUMMARY | 2025-05-22 18:49 | XMS_ITS | Encounter Summary ---
Author Organization [employer] Address [address] [facility] 7t [place] [address] Care Team Providers Care Digital Product Specialist Name Role Phone ElizabethBrandie becker Primary Care Provider + [phone] Encounter Details Date Type Department Care Team (Late st Contact Info) Description 11/05/2023 Orders Only [facility] MEDICINE 230 [place] [address] Provider, MD Trudy Social History Tobacco Use [...] documented as of this encounter Care Teams Digital Product Specialist Relationship Specialty Start Date End Date Brandie Evangelista DO [address] [place] [address] PCP - General Family Medicine 04/04/13 Laney Jha 01/26/18 documented as of this encounter
--- OUTSIDE RECORDS SUMMARY | 2025-05-22 18:49 | XMS_ITS | Encounter Summary ---
Author Organization [facility] Address [address] [place] [address] Care Team Providers Care Numerical Control Machine Tool Operator Name Role Phone Brandie Evangelista DO Primary Care Provider Ed Evans PharmD Unavailable Unavail able Encounter Details Date Type Department Care Team (Late st Contact Info) Description 09/16/2022 Abstract [facility] MEDICINE [address] [place] [address] Brandie Evangelista DO 230 [place] [address] Social History Tobacco Use Types Packs/Day Years [...] on filedocumented in this encounter Care Teams Numerical Control Machine Tool Operator Relationship Specialty Start Date End Date Brandie Evangelista DO [address] [place] [address] PCP - General Family Medicine 04/04/13 Ed Evans, PharmD [address] [place] [address] Pharmacist Internal Medicine 12/10/22 07/04/23 Laney Jha 01/26/18 documented as of this encounter
--- OUTSIDE RECORDS SUMMARY | 2025-05-22 18:49 | XMS_ITS | Encounter Summary ---
Author Organization [employer] Address [address] [facility] [address] [address] Care Team Providers Care Pole Incisor Operator Name Role Phone Brandie Evangelista DO Primary Care Provider +1 [phone] Reason for Visit * Reason Comments Med Refill Encounter Details Date Type Department Care Team ([facility] st Contact Info) Description 03/08/2024 Refill [facility] MEDICINE 230 [place] [address] Brandie Evangelista DO 230 [place], [place] [phone] Social History Tobacco Use Types Packs/Day Years [...] documented as of this encounter Care Teams Pole Incisor Operator Relationship Specialty Start Date End Date Brandie Evangelista DO [address] [place] [address] PCP - General Family Medicine 04/04/13 Laney Jha 01/26/18 documented as of this encounter
--- OUTSIDE RECORDS SUMMARY | 2025-05-22 18:49 | XMS_ITS | Encounter Summary ---
Author Organization [employer] Address [address] [facility] [address] [address] Care Team Providers Care Quotation Clerk Name Role Phone Brandie Evangelista DO Primary Care Provider +1 [phone] Reason for Visit * Reason Comments Med Refill Encounter Details Date Type Department Care Team ([facility] st Contact Info) Description 04/26/2024 Refill [facility] MEDICINE 230 [place] [address] Brandie Evangelista DO 230 [place], [place] [phone] Social History Tobacco Use Types Packs/Day Years [...] documented as of this encounter Care Teams Quotation Clerk Relationship Specialty Start Date End Date Brandie Evangelista DO [address] [place] [address] PCP - General Family Medicine 04/04/13 Laney Jha 01/26/18 documented as of this encounter
--- OUTSIDE RECORDS SUMMARY | 2025-05-22 18:49 | XMS_ITS | Encounter Summary ---
Author Organization [employer] Address 75 [facility] [address] [place] [address] Care Team Providers Care Bobbin Hauler Name Role Phone Brandie Evangelista DO Primary Care Provider + [phone] Reason for Visit * Reason Comments Med Refill Encounter Details Date Type Department Care Team ([facility] st Contact Info) Description 11/15/2024 Refill [facility] MEDICINE 230 [place] [address] Cristiane Sexton MD 230 [place], [place] [phone] Social History Tobacco Use Types Packs/Day Years [...] documented as of this encounter Care Teams Bobbin Hauler Relationship Specialty Start Date End Date Brandie Evangelista DO [address] [place] [address] PCP - General Family Medicine 04/04/13 Laney Jha 01/26/18 documented as of this encounter
--- OUTSIDE RECORDS SUMMARY | 2025-05-22 18:50 | XMS_ITS | Encounter Summary ---
Author Organization [employer] Address [address] [place] [address] [address] [address] Care Team Providers Care Stoneworking Sander Name Role Phone Brandie Evangelista DO Primary Care Provider +1 [phone] Ed Evans PharmD Unavailable Unavail able Reason for Visit * Reason Comments Med Refill Encounter Details Date Type Department Care Team ([facility] st Contact Info) Description 03/02/2023 Refill [facility] MEDICINE 230 [place] [address] Brandie Evangelista DO 230 [place] [address] Muscle spasm Social History Tobacco Use Types [...] documented as of this encounter Care Teams Stoneworking Sander Relationship Specialty Start Date End Date Brandie Evangelista DO 230 [place] [address] PCP - General Family Medicine 04/04/13 Ed Evans PharmD 230 [place] [address] Pharmacist Internal Medicine 12/10/22 07/04/23 Laney Jha 01/26/18 documented as of this encounter
--- OUTSIDE RECORDS SUMMARY | 2025-05-22 18:50 | XMS_ITS | Encounter Summary ---
Author Organization [employer] Address [address] [place] [address] [place] [address] Care Team Providers Care Credit Charge Authorizer Name Role Phone Brandie Evangelista DO Primary Care Provider +1 [phone] Ed Evans PharmD Unavailable Unavail able Reason for Visit * Reason Comments Med Refill Encounter Details Date Type Department Care Team ([facility] st Contact Info) Description 03/25/2023 Refill [facility] MEDICINE 230 [place] [address] Brandie Evangelista DO 230 [place] [address] Asthma, unspecified asthma severity, unspecified whether complicated, [...] documented as of this encounter Care Teams Credit Charge Authorizer Relationship Specialty Start Date End Date Brandie Evangelista DO [address] [place] [address] PCP - General Family Medicine 04/04/13 Ed Evans, PharmD 230 [place] [address] Pharmacist Internal Medicine 12/10/22 07/04/23 Laney Jha 01/26/18 documented as of this encounter
--- OUTSIDE RECORDS SUMMARY | 2025-05-22 18:50 | XMS_ITS | Encounter Summary ---
Author Organization [employer] Address [address] [facility] 7t [place] [address] Care Team Providers Care Refractory Bricklayer Name Role Phone Brandie Evangelista DO Primary Care Provider +1 [phone] Ed Evans PharmD Unavailable Unavail able Reason for Visit * Reason Comments Med Refill Encounter Details Date Type Department Care Team ([facility] st Contact Info) Description 06/23/2023 Refill [facility] MEDICINE 230 [place] [address] Brandie Evangelista DO 230 [place] [address] Chest pain, unspecified type Social History Tobacco [...] documented as of this encounter Care Teams Refractory Bricklayer Relationship Specialty Start Date End Date Brandie Evangelista DO 230 [place] [address] PCP - General Family Medicine 04/04/13 Ed Evans, BgD 230 [place] [address] Pharmacist Internal Medicine 12/10/22 07/04/23 Laney Jha 01/26/18 documented as of this encounter
--- OUTSIDE RECORDS SUMMARY | 2025-05-22 18:50 | XMS_ITS | Encounter Summary ---
Author Organization [employer] Address 75 [facility] [address] [address] Care Team Providers Care Car Repossessor Name Role Phone Brandie Evangelista DO Primary Care Provider + [phone] Reason for Visit * Reason Comments Med Refill Encounter Details Date Type Department Care Team ([facility] st Contact Info) Description 04/03/2024 Refill [facility] MEDICINE 230 [place], [place] [phone] Brandie Evangelista DO 230 [place], [place] [phone] Seasonal allergic rhinitis, unspecified trigger Social History [...] documented as of this encounter Care Teams Car Repossessor Relationship Specialty Start Date End Date Brandie Evangelista DO [address] [place] [address] PCP - General Family Medicine 04/04/13 Laney Jha 01/26/18 documented as of this encounter
--- OUTSIDE RECORDS SUMMARY | 2025-05-22 18:50 | XMS_ITS | Encounter Summary ---
Author Organization [employer] Address [address] [place] [address] 7[place] [address] Care Team Providers Care Cheese Cooker Name Role Phone Brandie Evangelista DO Primary Care Provider +1 [phone] Ed Evans PharmD Unavailable Unavail able Encounter Details Date Type Department Care Team (Late st Contact Info) Description 11/17/2022 Orders Only [facility] [address] [place], [place] [phone] Ed Evans, PharmD Social History Tobacco Use [...] documented as of this encounter Care Teams Cheese Cooker Relationship Specialty Start Date End Date Brandie Evangelista DO [address] [place] [id number] PCP - General Family Medicine 04/04/13 Ed Evans, BgD [address] [place] [address] Pharmacist Internal Medicine 12/10/22 07/04/23 Laney Jha 01/26/18 documented as of this encounter
--- OUTSIDE RECORDS SUMMARY | 2025-05-22 18:50 | XMS_ITS | Encounter Summary ---
Author Organization [employer] Address [address] [place] [address] 7[place] [address] Care Team Providers Care Professor Of Environmental Engineering Name Role Phone Brandie Evangelista DO Primary Care Provider +1 [phone] DelEd luong PharmD Unavailable Unavail able Reason for Visit * Reason Comments Med Refill Encounter Details Date Type Department Care Team ([facility] st Contact Info) Description 04/12/2023 Refill [facility] [address] [place] [address] Brandie Evangelista DO 230 [place] [address] Chronic obstructive pulmonary disease, unspecified COPD type [...] pulmonary disease, unspecified COPD type (CMS/HCC) (HCC) documented in this encounter Additional Health Concerns Assessment Noted Time PHQ-9 Depression Total Score: 5 11/17/19 23 10:04 AM EDT documented as of this encounter Care Teams Professor Of Environmental Engineering Relationship Specialty Start Date End Date Brandie Evangelista DO 230 [place] [address] PCP - General Family Medicine 04/04/13 Ed Evans PharmD 230 [place] [address] Pharmacist Internal Medicine 12/10/22 07/04/23 Laney Jha 01/26/18 documented as of this encounter
--- OUTSIDE RECORDS SUMMARY | 2025-05-22 18:50 | XMS_ITS | Encounter Summary ---
Author Organization [employer] Address [address] [place] [address] 7 [place] [address] Care Team Providers Care Director Of Teenage Activities Name Role Phone Brandie Evangelista DO Primary Care Provider +1- [phone] Ed Evans PharmD Unavailable Unavail able Encounter Details Date Type Department Care Team (Late st Contact Info) Description 11/13/2022 Abstract [facility] MEDICINE 230 [place] [address] Brandie Evangelista DO 230 [place] [address] Social History Tobacco Use Types Packs/Day Years [...] television Not at all 11/16/2022 10:04 AM Tami Berry M A Moving or speaking so [...] on filedocumented in this encounter Care Teams Director Of Teenage Activities Relationship Specialty Start Date End Date Brandie Evangelista DO 230 [place] [address] PCP - General Family Medicine 04/04/13 Ed Evans, Getachew 230 [place] [address] Pharmacist Internal Medicine 12/10/22 07/04/23 Laney Jha 01/26/18 documented as of this encounter
--- OUTSIDE RECORDS SUMMARY | 2025-05-22 18:50 | XMS_ITS | Encounter Summary ---
Author Organization [employer] Address [address] [place] [address] [place] [address] Care Team Providers Care Human Services Program Specialist Name Role Phone Brandie Evangelista DO Primary Care Provider +1 [phone] Ed Evans PharmD Unavailable Unavail able Reason for Visit * Reason Comments Med Refill Encounter Details Date Type Department Care Team ([facility] st Contact Info) Description 11/12/2022 Refill [facility] MEDICINE 230 [place] [address] Genesis Martinez MD [address] [place] [address] Social History Tobacco Use Types Packs/Day Years [...] on filedocumented in this encounter Care Teams Human Services Program Specialist Relationship Specialty Start Date End Date Brandie Evangelista DO 230 [place] [address] PCP - General Family Medicine 04/04/13 Ed Evans, PharmD [address] [place] [address] Pharmacist Internal Medicine 12/10/22 07/04/23 Laney Jha 01/26/18 documented as of this encounter
--- OUTSIDE RECORDS SUMMARY | 2025-05-22 18:50 | XMS_ITS | Encounter Summary ---
Author Organization [email or web address] Address 75 [facility] 7t [place] [address] Care Team Providers Care Rotary Drum Dyer Name Role Phone Brandie Evangelista DO Primary Care Provider +1 [phone] Ed Evans PharmD Unavailable Unavail able Reason for Visit * Reason Comments Med Refill Encounter Details Date Type Department Care Team ([facility] st Contact Info) Description 06/17/2023 Refill [facility] MEDICINE 230 [place] [address] Brandie Evangelista DO 230 [place] [address] Chest pain, unspecified type Social History Tobacco [...] documented as of this encounter Care Teams Rotary Drum Dyer Relationship Specialty Start Date End Date Brandie Evangelista DO 230 [place] [address] PCP - General Family Medicine 04/04/13 Ed Evans, BgD 230 [place] [address] Pharmacist Internal Medicine 12/10/22 07/04/23 Laney Jha 01/26/18 documented as of this encounter
--- OUTSIDE RECORDS SUMMARY | 2025-05-22 18:50 | XMS_ITS | Encounter Summary ---
Author Organization [employer] Address 75 [facility] 7t [place] [address] Care Team Providers Care Assistant Production Manager Name Role Phone Brandie Evangelista DO Primary Care Provider +[phone] Reason for Visit * Reason Comments Med Refill Encounter Details Date Type Department Care Team ([facility] st Contact Info) Description 07/13/2023 Refill [facility] MEDICINE 230 [place], [place] [phone] Brandie Evangelista DO 230 [place], [place] [phone] Social History Tobacco Use Types Packs/Day Years [...] as of this encounter Care Teams Assistant Production Manager Relationship Specialty Start Date End Date Brandie Eavngelista DO 230 [place] [address] PCP - General Family Medicine 04/04/13 Laney Jha 01/26/18 documented as of this encounter
--- OUTSIDE RECORDS SUMMARY | 2025-05-22 18:50 | XMS_ITS | Encounter Summary ---
Author Organization [employer] Address [address] [place] [address] 7[address] [place] [address] Care Team Providers Care Armorer Technician Name Role Phone Brandie Evangelista DO Primary Care Provider +1 [phone] Reason for Visit * Reason Comments Med Refill Encounter Details Date Type Department Care Team ([facility] st Contact Info) Description 07/03/2024 Refill [facility] 230 [place] [address] Brandie Evangelista DO 230 [place] [address] Anemia, unspecified type; Swelling of both lower extremities; Type 2 diabetes mellitus with other specified complication, without long-term current use of insulin ([facility]); Chest pain, unspecified type Social [...] without long-term current use of insulin (HCC) Chest pain, unspecified type documented in this encounter Additional Health Concerns Assessment Noted Time PHQ-9 Depression Total Score: 16 024 9:38 AM EDT documented as of this encounter Care Teams Armorer Technician Relationship Specialty Start Date End Date Brandie Evangelista DO 230 [place] [address] PCP - General Family Medicine 04/04/13 Laney Jha 01/26/18 documented as of this encounter
--- OUTSIDE RECORDS SUMMARY | 2025-05-22 18:50 | XMS_ITS | Encounter Summary ---
Author Organization [employer] Address [address] [facility] 7t [place] [address] Care Team Providers Care Cement And Concrete Plant Worker Name Role Phone Brandie Evangelista DO Primary Care Provider + [phone] Reason for Visit * Reason Comments Med Refill Encounter Details Date Type Department Care Team ([facility] st Contact Info) Description 10/27/2023 Refill [facility] MEDICINE 230 [place] [address] Dacia Baez MD 230 [place], [place] [phone] Social History Tobacco Use Types Packs/Day Years [...] documented as of this encounter Care Teams Cement And Concrete Plant Worker Relationship Specialty Start Date End Date Brandie Evangelista DO [address] [place] [address] PCP - General Family Medicine 04/04/13 Laney Jha 01/26/18 documented as of this encounter
--- OUTSIDE RECORDS SUMMARY | 2025-05-22 18:50 | XMS_ITS | Encounter Summary ---
Author Organization [employer] Address [address] [place] [address] [address] [address] Care Team Providers Care Asphalt Roller Person Name Role Phone Brandie Evangelista DO Primary Care Provider +1- [phone] Ed Evans PharmD Unavailable Unavail able Reason for Visit * Reason Onset Date Comments Referral 12/14/2022 Renewal (Endocri nologist) Encounter Details Date Type Department Care Team ([facility] st Contact Info) Description 12/14/2022 Telephone [facility] MEDICINE 230 [place] [address] Brandie Evangelista DO [address] [place] [address] Referral (Renewal (Registered Dietitian)) Social History Tobacco Use Types Packs/Day Years [...] patients daughter requesting for a renewal on mallet and die cutter referral. Referral on nexgen 03/20/21. Referrals Date-N/A Time- N/A Address- [address] [facility] [address] [address] Specialty- Registered Dietitian Fax: documented in this encounter Plan of [...] documented as of this encounter Care Teams Asphalt Roller Person Relationship Specialty Start Date End Date Brandie Evangelista DO 230 [place] [address] PCP - General Family Medicine 04/04/13 Ed Evans, PharmD [address] [place] [address] Pharmacist Internal Medicine 12/10/22 07/04/23 Laney Jha 01/26/18 documented as of this encounter
--- OUTSIDE RECORDS SUMMARY | 2025-05-22 18:50 | XMS_ITS | Encounter Summary ---
Author Organization [employer] Address [address] [place] [address] [place] [address] Care Team Providers Care Tapper Bit Name Role Phone Brandie Evangelista DO Primary Care Provider +1- [phone] Ed Evans PharmD Unavailable Unavail able Reason for Visit * Reason Onset Date Comments Medication Question 04/01/2023 Encounter Details Date Type Department Care Team ([facility] st Contact Info) Description 04/01/2023 Telephone [facility] MEDICINE 230 [place] [address] Brandie Evangelista DO 230 [place], [place] [phone] Medication Question Social History Tobacco Use Types [...] - 04/05/2023 11:39 AM EDT T/C to [phone] for below message, No answer. LVM to call back on [phone]. * Telephone Encounter - Jovanna Nichols - 04/01/2023 4:51 PM EDT Tc from patients Son requesting a call back, in regards to patients medications and interactions. Please call [phone]. documented in this encounter Plan of Treatment [...] documented as of this encounter Care Teams Tapper Bit Relationship Specialty Start Date End Date Brandie Evangelista DO 230 [place] [address] PCP - General Family Medicine 04/04/13 Ed Evans, PharmD [address] [place] [address] Pharmacist Internal Medicine 12/10/22 07/04/23 Laney Jha 01/26/18 documented as of this encounter
--- OUTSIDE RECORDS SUMMARY | 2025-05-22 18:50 | XMS_ITS | Clinical Summary ---
Author Organization [employer] Address [address] [place] [address] [address] [place] [address] Care Team Providers Care Manager Of Patient Name Role Phone Brandie Evangelista DO Primary Care Provider [phone] Allergies No known active allergies Medications tiotropium (Spiriva HandiHaler) 18 MCG inhalation capsuleIndicat ions:Chronic obstructive pulmonary disease, unspecified COPD type (CMS/HCC) ([facility]) inhale 1 capsule by inhalation route every day 90 capsule 3 07/14/20 22 Active Blood Glucose Monitoring Suppl (ONE TOUCH ULTRA 2) w/Device kitIndications :Type 2 diabetes mellitus with other specified complication, unspecified whether usp insulin use ([facility]) Check blood sugar by fingerstick route once [...] tid ac meals prn abd pain 04/24/20 Active cloNIDine (Catapres) 0.2 MG tablet Take 1 mg by mouth Once daily. 11/13/19 23 Active glucose-vitami n C 4-6 GM-MG oral gel chew 2-4 tablets PO as needed for hypoglycemia 03/17/20 Active white petrolatum-zin c oxide (Sensi-Care) 49-15 % ointment ointment Apply 1 application topically if needed for dry skin. 113 g 3 11/18/19 23 Active Lancets (Flightfoxuch Delica Plus [id number]) miscIndication s:Type 2 diabetes mellitus with other specified complication, unspecified whether usp insulin use (HCC) USE TO TEST ONCE DAILY 100 each [...] without long-term current use of insulin (HCC) TAKE ONE TABLET BY MOUTH THREE TIMES A DAY WITH MEALS 90 tablet 08/15/19 25 Active cholecalcifero l VITAMIN D (Vitamin D-3) 50 MCG (2000 UT) capsuleIndicat ions:Vitamin D deficiency TAKE ONE CAPSULE BY MOUTH EVERY DAY ^1R1 28 capsule 11 08/25/19 25 Active polyethylene glycol, PEG, 3350 [...] ^1R1,1R4 60 capsule 09/22/19 25 Active Multiple Vitamins-Cardwell als (Cerovite Senior) tablet TAKE ONE TABLET BY MOUTH EVERY DAY ^1R1 28 tablet 10/19/19 25 Active Alcohol Swabs (Easy Touch Alcohol Prep Medium) 70 % pads USE TO CLEAN THE AREA BEFORE CHECKING BLOOD SUGAR ONCE A DAY (BULK) 100 each 11/29/19 25 Active OneTouch Ultra test stripIndicatio ns:Type 2 diabetes mellitus with other specified complication, unspecified whether usp insulin use ([facility]) USE TO TEST ONCE DAILY 100 strip [...] obstructive pulmonary disease, unspecified COPD type (CMS/HCC) ([facility]) INHALE 2 PUFFS TWO TIMES A DAY [...] (VIAL) 90 tablet 5 04/05/20 25 Active triamcinolone (Kenalog) 0.1 % [...] (BULK) 18 g 5 04/05/20 25 Active nitroglycerin (Nitrostat) 0.4 MG SL tabletIndicati ons:Chest pain, unspecified type PLACE 1 TABLET UNDER TONGUE AND ALLOW TO DISSOLVE ONCE EVERY 5 MINUTES IF NEEDED FOR CHEST PAIN; IF NO RELIEF AFTER THIRD DOSE CALL 911 (ORIGINAL CONTAINER) 25 tablet 05/03/20 25 Active nitroglycerin (Nitrostat) 0.4 MG SL tabletIndicati ons:Chest pain, unspecified type PLACE 1 TABLET UNDER TONGUE AND ALLOW TO DISSOLVE ONCE EVERY 5 MINUTES IF NEEDED FOR CHEST PAIN; IF NO RELIEF AFTER THIRD DOSE CALL 911 (ORIGINAL CONTAINER) 25 tablet 04/05/20 25 025 Discontinued Active Problems Problem Noted [...] 2 wks, consider start ARB Refer to [facility] clinic again, reportedly never received phone call [...] bring glucometer to visits -will re-refer to [facility] pharmacist prn -cont aspirin and statin daily [...] next one [place] [facility] [place] overdue, needs to reschedule [...] Encounters Date Type Department Care Team Description 05/02/2025 Refill [facility] [address] [place] [address] Brandie Evangelista DO Chest pain, unspecified type 04/04/2025 Refill [facility] [address] [facility] [place] [address] Brandie Evangelista DO Dizziness; Chest pain, unspecified type; Asthma, unspecified asthma severity, unspecified whether complicated, unspecified whether persistent 03/29/2025 Refill [facility] [address] [facility] [place] [address] Brandie Evangelista DO 03/21/2025 Telephone [facility] [address] [facility] [place] [address] Brandie Evangelista DO Chart Prep 03/08/2025 Refill [facility] MEDICINE 230 [place] [address] Brandie Evangelista DO Seasonal allergic rhinitis, unspecified trigger; Chest pain, unspecified type 03/07/2025 Refill C MEDICINE [address] [facility] [place] [address] Brandie Evangelista DO Seasonal allergic rhinitis, unspecified trigger; Chest pain, unspecified type 03/02/2025 Refill C MEDICINE [address] [facility] [place] [address] Brandie Evangelista DO Dizziness; Asthma, unspecified asthma severity, unspecified whether complicated, unspecified whether persistent 02/20/2025 Telephone [facility] [address] [facility] [place] [address] Brandie Evangelista DO Call Back Request from Last 3 Months Immunizations Immunization Administration [...] complication, without long-term current use of insulin ([facility]) HEPATITIS C AB W/REFL TO HCV RNA, [...] Date Blood 08/30/2024 12:0 7 PM EST us Brandie Evangelista DO POINT OF CARE TEST ENTER/BRYNN T ORDERABLES Final Result * (ABNORMAL) Albumin, Random Urine W/Creatinine (05/20/2023 10:50 AM EDT) Creatinine, Urine 124.33 mg/dL [facility] Microalbumin Urine 62.0 mg/L [facility] Microalbum Creatinine Ratio Ur 49.8(H) <30 ug/mg cr [facility] Comment:Albumin/Creatinine R atio Reference Ranges: Normal: < 30 ug/mg creatinine Microalbuminuria: 30 - 300 ug/mg creatinineClinical Albuminuria: > 300 ug/mg creatinine 05/20/2023 10:5 0 AM EDT 05/20/2023 11:40 AM EDT us Brandie Evangelista DO LAB URINE ORDERABLES Final R esult [facility] [address] [place] [address] [phone] * Hepatitis C Antibody with Reflex to HCV, RNA, Quantitative, Real-Time PCR (05/20/2023 10:50 AM EDT) Hepatitis C Antibody Nonreactive Nonreactive [facility] Comment:Antibodies to HCV no t detected; does not exclude early acuteHCV infection. 05/20/2023 10:5 0 AM EDT 05/20/2023 11:40 AM EDT Brandie Evangelista DO LAB BLOOD ORDERABLES Final R esult [facility] [address] [place] [phone] * (ABNORMAL) Lipid Panel, Standard (05/20/2023 10:50 AM EDT) Triglycerides 92 <150 mg/dL [facility] Comment:Desirable Triglyceri de: less than 150 mg/dLBorderline High Triglyceride 150-199 mg/dLHigh Triglyceride: 200-499 mg/dLVery High Triglyceride: greater than or equal to 5OO mg/dL Cholesterol 75 <200 mg/dL [facility] Comment:Desirable Cholestero l: less than 200 mg/dLBorderline High Cholesterol: 200-239 mg/dLHigh Cholesterol: greater than 239 mg/dL LDL Cholesterol Calculated 28 <100 mg/dL [facility] Comment:Desirable LDL: less than 100 mg/dLNear Optimal/Above Optimal LDL: 110- 129 mg/dLBorderline High LDL: 130-159 mg/dLHigh LDL: 160-189 mg/dLVery High LDL: greater than or equal to 190 mg/dL HDL Cholesterol 29(L) >40 mg/dL [facility] Comment:Desirable HDL: great er than 40 mg/dL Note: This HDL assay may give artificially low results in patients with liver disease. Blood Venous blood specimen / Unknown 05/20/2023 10:50 AM EDT 05/20/2023 11:40 AM EDT Brandie Evangelista DO LAB BLOOD ORDERABLES Final R esult [facility] [address] [place] [phone] * Hm Colonoscopy (06/21/2017 9:36 AM EST) us Historical Provider MD HEALTH MAINTENANCE Final Result from Last 3 Months or Most Recently Relevant to Health Maintenance Insurance [facility] [employer] (HMO D-SNP) [place] [id number] Care Teams Manager Of Patient Relationship Specialty Start Date End Date Brandie Evangelista DO [address] [place] [address] PCP - General Family Medicine 04/04/13 Laney Jha 01/26/18
--- OUTSIDE RECORDS SUMMARY | 2025-05-22 18:50 | XMS_ITS | Encounter Summary ---
Author Organization [employer] Address [address] [place] [address] [address] [address] Care Team Providers Care Fugitive Investigator Name Role Phone Brandie Evangelista DO Primary Care Provider [phone] Ed Evans PharmD Unavailable Unavail able Reason for Visit * Reason Comments Med Refill Encounter Details Date Type Department Care Team ([facility] st Contact Info) Description 04/26/2023 Refill [facility] MEDICINE [address] [place] [address] Brandie Evangelista DO [address] [place] [address] Swelling of both lower extremities Social History [...] documented as of this encounter Care Teams Fugitive Investigator Relationship Specialty Start Date End Date Brandie Evangelista DO [address] [place] [address] PCP - General Family Medicine 04/04/13 Ed Evans PharmD [address] [place] [address] Pharmacist Internal Medicine 12/10/22 07/04/23 Laney Jha 01/26/18 documented as of this encounter
--- OUTSIDE RECORDS SUMMARY | 2025-05-22 18:50 | XMS_ITS | Patient Health Record ---
Author Organization [facility] Address [address] [place] [address] Care Team Providers Care Sample Mounter Name Role Phone Brandie Evangelista M.D. Primary Care Provider Kiara annabellelisa Kimbrough Dennys Melvina [phone] Allergies No Known Allergies Results Component Value Reference Range Notes Pathology (Not yet reviewed by provider) Interpretation: Performing Lab:[facility], [address] [place] [phone] Notes/Report: Reason For Referral No Information Medications Medication SIG (Take, Route, Frequency, Duration) Notes [...] a day Active QUEtiapine Fumarate 200 MG Oral; Duration: 28 Active Atorvastatin Calcium 40 MG Oral; Duration: 28 Active Tamsulosin HCl 0.4 MG Oral; Duration: 28 Active Isosorbide Mononitrate ER 60 MG Oral; Duration: 28 Active Docusate Sodium 100 MG Oral; Duration: 28 Active Triamcinolone Acetonide 0.1 % External; Duration: 15 Activ e Aspirin Low Dose 81 MG Oral; Duration: 28 Active Polyethylene Glycol 3350 17 GM/SCOOP Oral; Duration: 30 Active Ventolin HFA 108 (90 Base) MCG/ACT 2 puffs as needed Inhalation every 4-6 hrs/prn Active Cetirizine HCl 10 MG Oral; Duration: 28 Active Cerovite Senior - Oral; Duration: 28 Active Gabapentin 100 MG Oral; Duration: 28 Active Symbicort 160-4.5 MCG/ACT 2 puffs Inhala tion Twice a day Active Metoprolol Succinate ER 100 MG 1 tablet Orally Once a day Active Fluticasone Propionate 50 MCG/ACT Nasal; Duration: 30 Active Acetaminophen ER 650 MG 1 tablets as nee ded Orally every 8 hrs/prn Active FeroSul 325 (65 Fe) MG Oral; Duration: 28 Active traZODone HCl 150 MG 1 tablet at bedtime as needed Orally Once a day Active Albuterol Sulfate (2.5 MG/3ML) 0.083% Inhalation; Duration: 7 Ac tive DULoxetine HCl 60 MG 2 capsule Orally On ce a day Active Nitroglycerin 0.4 MG Sublingual; Duration: 30 Active Spiriva HandiHaler 18 MCG 1 capsule Inha lation Once a day Active Vitamin D3 50 MCG (2000 UT) Oral; Duration: 28 Active Meclizine HCl 25 MG 1 tablet as needed Orally TID Active MiraLax (colon prep) 17 GM/SCOOP 1 238Gm bottle mixed with Gatorade or Crystal Light Orally begin at 5:00 p.m. the day before the procedure; Duration: 1 day 03/17/2023 Active Dulcolax (colon prep) 5 MG take at 3:00 p.m and 7:00p.m. Orally two tablets twice a day for one day; Duration: 1 day 03/17/2023 Active Vitamin C 250 MG Oral; Duration: 28 Active hydrALAZINE HCl 100 MG Oral; Duration: 28 Active Montelukast Sodium 10 MG Oral; Duration: 28 Active Furosemide 40 MG Oral; Duration: 28 Active cloNIDine HCl 0.2 MG Oral; Duration: 28 Active buPROPion HCl ER (XL) 300 MG Oral; Duration: 28 Active Temazepam 30 MG 1 capsule at bedtime as needed Orally Once a day Active Immunizations Vaccine Route Administration Date Status Comme nts Flu vaccine no Preserv 3 and > Unknown 06/09/2016 Admin istered Influenza Unknown 07/12/2024 Refused Problems Problem Type SNOMED Code ICD Code Onset Dates Problem Status W/U Status Risk Notes Problem Screening for malignant neoplasm of colon (100257061) Encounter for screening for malignant neoplasm of colon (Z12.11) Active confirmed Problem History of adenomatous polyp of colon (369076085) History of adenomatous polyp of colon (Z86.010) Active confirmed Problem Pre-procedure evaluation check (578967474) Encounter for other preprocedural examination (Z01.818) Active confirmed Problem Long-term current use of antiplatelet drug (964202333878759) Long-term use of aspirin therapy (Z79.82) Active confirmed Problem Gastroesophageal reflux disease (disorder) (170787910) Chronic GERD (K21.9) Active confirmed Problem Personal history of adenomatous and serrated colon polyps (Z86.0101) Active confirmed Vital Signs Temperature 98.6 degrees Fahrenheit 07/12/2024 Blood pressure diastolic 00 mm Hg 07/12/2024 Height 68.5 in 07/12/2024 Blood pressure systolic 000 mm Hg 07/12/2024 Weight 229 lbs 07/12/2024 BMI 34.31 kg/m2 07/12/2024 Encounters Encounter Location Date Provider Diagnosis [facility] [address] [place], [place] [phone] 10/18/2024 Dennys Kimbrough Colon cancer screeni ng Z12.11 ; Personal history of colonic polyps Z86.0100 ; Colon polyps K63.5 and Diverticulosis of large intestine without perforation or abscess without bleeding K57.30 [facility] [address] [place] [address] 07/12/2024 Dennys Kimbrough History of adenomato us polyp of colon Z86.010 ; Encounter for other preprocedural examination Z01.818 ; Encounter for screening for malignant neoplasm of colon Z12.11 ; Long-term use of aspirin therapy Z79.82 and Chronic GERD K21.9 Assessments Encounter Date Diagnosis (ICD Code) Assessment Notes Treatment Notes Treatment Clinical Notes Section Notes 10/18/2024 Colon cancer screening (ICD-10 - Z12.11) 10/18/2024 Personal history of colonic polyps (ICD-10 - Z86.0100) 07/12/2024 History of adenomatous polyp of colon (ICD-10 - Z86.010) Do not take Metformin the night before nor on the morning of the colonoscopy * Do not take aspirin onnthe morning of the colonoscopy * Stop Iron for 1 week before the colonoscopy * Do not take the Furosemide the day before or on the day of the colonoscopy * Overall, Emory appears well. He presently is not having any worrisome or new GI complaints. We again reviewed the need for a followup colonoscopy given the history of tubular adenomas and his last colonoscopy being over 7 years ago back in May 2017. We did review the rationale for this regard to colon cancer prevention. Full consent was obtained for this, including risks of bleeding and perforation. The procedure will be done with monitored anesthesia care. He was given the below instructions regarding the adjustment of his medications for the procedure. I did advise Emory to review these instructions with his VNA and WIRE HANGER to make sure his medications get adjusted properly for the procedure. Emory was comfortable with this plan. Thank you again for allowing me to participate in Emory's care. I shall continue to keep you advised of his progress. 07/12/2024 Encounter for other preprocedural examination (ICD-10 - Z01.818) Overall, Emory appears well. He presently is not having any worrisome or new GI complaints. We again reviewed the need for a followup colonoscopy given the history of tubular adenomas and his last colonoscopy being over 7 years ago back in May 2017. We did review the rationale for this regard to colon cancer prevention. Full consent was obtained for this, including risks of bleeding and perforation. The procedure will be done with monitored anesthesia care. He was given the below instructions regarding the adjustment of his medications for the procedure. I did advise Emory to review these instructions with his VNA and WIRE HANGER to make sure his medications get adjusted properly for the procedure. Emory was comfortable with this plan. Thank you again for allowing me to participate in Emory's care. I shall continue to keep you advised of his progress. 10/18/2024 Colon polyps (ICD-10 - K63.5) 07/12/2024 Encounter for screening for malignant neoplasm of colon (ICD-10 - Z12.11) Overall, Emory appears well. He presently is not having any worrisome or new GI complaints. We again reviewed the need for a followup colonoscopy given the history of tubular adenomas and his last colonoscopy being over 7 years ago back in May 2017. We did review the rationale for this regard to colon cancer prevention. Full consent was obtained for this, including risks of bleeding and perforation. The procedure will be done with monitored anesthesia care. He was given the below instructions regarding the adjustment of his medications for the procedure. I did advise Emory to review these instructions with his VNA and WIRE HANGER to make sure his medications get adjusted properly for the procedure. Emory was comfortable with this plan. Thank you again for allowing me to participate in Emory's care. I shall continue to keep you advised of his progress. 10/18/2024 Diverticulosis of large intestine without perforation or abscess without bleeding (ICD-10 - K57.30) 07/12/2024 Long-term use of aspirin therapy (ICD-10 - Z79.82) Overall, Emory appears well. He presently is not having any worrisome or new GI complaints. We again reviewed the need for a followup colonoscopy given the history of tubular adenomas and his last colonoscopy being over 7 years ago back in May 2017. We did review the rationale for this regard to colon cancer prevention. Full consent was obtained for this, including risks of bleeding and perforation. The procedure will be done with monitored anesthesia care. He was given the below instructions regarding the adjustment of his medications for the procedure. I did advise Emory to review these instructions with his VNA and WIRE HANGER to make sure his medications get adjusted properly for the procedure. Emory was comfortable with this plan. Thank you again for allowing me to participate in Emory's care. I shall continue to keep you advised of his progress. 07/12/2024 Chronic GERD (ICD-10 - K21.9) Overall, Emory appears well. He presently is not having any worrisome or new GI complaints. We again reviewed the need for a followup colonoscopy given the history of tubular adenomas and his last colonoscopy being over 7 years ago back in May 2017. We did review the rationale for this regard to colon cancer prevention. Full consent was obtained for this, including risks of bleeding and perforation. The procedure will be done with monitored anesthesia care. He was given the below instructions regarding the adjustment of his medications for the procedure. I did advise Emory to review these instructions with his VNA and WIRE HANGER to make sure his medications get adjusted properly for the procedure. Emory was comfortable with this plan. Thank you again for allowing me to participate in Emory's care. I shall continue to keep you advised of his progress. Plan Of Treatment Pending Test Test Name Order Date Pathology 10/18/2024 Future Test Test Name Order Date COLONOSCOPY 04/13/2017 COLONOSCOPY 03/17/2023 COLONOSCOPY 07/12/2024 Insurance Providers Payer Name Payer Address Payer Phone Subscriber Number Group Number Insured Name Patient Relationship to Insured Coverage Start Date Coverage End Date [facility] [address] Attn Claims [place] [id number] EMORY CONNELL Self - patient is the insured Medical (General) History Medical History History ICD Code HTN GERD--EGD in 2009--small HH, no sig. esophagitis nor Scott's--Gastritis, but no H.pylori Asthma NIDDM Denies [place],CVA,renal disease Depression Hypothyroidism Hyperlipidemia Tubular adenomas removed in 2006 and 02/2012--also noted to have diverticulosis and internal hemorrhoids Sleep apnea--uses CPAP Describes a negative E[place] [facility] [place] 7 Negative colonoscopy in 05/2017 Surgical History Surgery Date(Month/Year) Shoulder surgery Skull surgery [facility] TURP 04/2024
--- OUTSIDE RECORDS SUMMARY | 2025-05-22 18:50 | XMS_ITS | Encounter Summary ---
Author Organization [employer] Address [address] [facility] [address] [place] [address] Care Team Providers Care Fur Finisher Name Role Phone Brandie Evangelista DO Primary Care Provider [phone] Ed Evans PharmD Unavailable Unavail able Reason for Visit * Reason Comments Med Refill Encounter Details Date Type Department Care Team ([facility] st Contact Info) Description 05/21/2023 Refill [facility] MEDICINE [address] [place] [address] Brandie Evangelista DO [address] [place] [address] Muscle spasm; Seasonal allergic rhinitis, unspecified trigger [...] the past 12 months, has t he Urgent Group, gas, oil or water company threatened to [...] documented as of this encounter Care Teams Fur Finisher Relationship Specialty Start Date End Date Brandie Evangelista DO [address] [place] [address] PCP - General Family Medicine 04/04/13 Ed Evans, PharmD [address] [place] [address] Pharmacist Internal Medicine 12/10/22 07/04/23 Laney Jha 01/26/18 documented as of this encounter
--- OUTSIDE RECORDS SUMMARY | 2025-05-22 18:50 | XMS_ITS | Encounter Summary ---
Author Organization [employer] Address [address] [facility] [address] [place] [address] Care Team Providers Care Outbound Sales Executive Name Role Phone Brandie Evangelista DO Primary Care Provider [phone] Ed Evans PharmD Unavailable Unavail able Encounter Details Date Type Department Care Team (Late st Contact Info) Description 05/21/2023 Abstract [facility] MEDICINE [address] [place] [address] Brandie Evangelista DO [address] [place], [place] [phone] Social History Tobacco Use Types Packs/Day Years [...] documented as of this encounter Care Teams Outbound Sales Executive Relationship Specialty Start Date End Date Brandie Evangelista DO [address] [place] [address] PCP - General Family Medicine 04/04/13 Ed Evans, PharmD [address] [place] [address] Pharmacist Internal Medicine 12/10/22 07/04/23 Laney Jha 01/26/18 documented as of this encounter
--- OUTSIDE RECORDS SUMMARY | 2025-05-22 18:50 | XMS_ITS | Encounter Summary ---
Author Organization [employer] Address [address] [facility] [address] [place] [address] Care Team Providers Care Claims Counsel Name Role Phone Brandie Evangelista DO Primary Care Provider + [phone] Reason for Visit * Reason Comments Med Refill Encounter Details Date Type Department Care Team ([facility] st Contact Info) Description 10/27/2023 Refill [facility] MEDICINE [address] [place] [address] Dacia Baez MD [address] [place], [place] [phone] Social History Tobacco Use Types Packs/Day Years [...] documented as of this encounter Care Teams Claims Counsel Relationship Specialty Start Date End Date Brandie Evangelista DO [address] [place] [address] PCP - General Family Medicine 04/04/13 Laney Jha 01/26/18 documented as of this encounter
--- OUTSIDE RECORDS SUMMARY | 2025-05-22 18:50 | XMS_ITS | Encounter Summary ---
Author Organization [employer] Address [address] [facility] [address] [place] [address] Care Team Providers Care Exchange Specialist Name Role Phone Brandie Evangelista DO Primary Care Provider + [phone] Reason for Visit * Reason Comments Med Refill Encounter Details Date Type Department Care Team ([facility] st Contact Info) Description 10/27/2023 Refill [facility] MEDICINE [address] [place], [place] [phone] Brandie Evangelista DO [address] [place], [place] [phone] Anemia, unspecified type Social History Tobacco Use [...] documented as of this encounter Care Teams Exchange Specialist Relationship Specialty Start Date End Date Brandie Evangelista DO [address] [place] [address] PCP - General Family Medicine 04/04/13 Laney Jha 01/26/18 documented as of this encounter
--- OUTSIDE RECORDS SUMMARY | 2025-05-22 18:50 | XMS_ITS | Encounter Summary ---
Author Organization [employer] Address [address] [facility] [address] [place] [address] Care Team Providers Care Tariff Clerk Name Role Phone Brandie Evangelista DO Primary Care Provider + [phone] Reason for Visit * Reason Comments Med Refill Encounter Details Date Type Department Care Team ([facility] st Contact Info) Description 10/27/2023 Refill [facility] [address] [place], [place] [phone] Brandie Evangelista DO [address] [place], [place] [phone] Anemia, unspecified type Social History Tobacco Use [...] documented as of this encounter Care Teams Tariff Clerk Relationship Specialty Start Date End Date Brandie Evangelista DO [address] [place] [id number] PCP - General Family Medicine 04/04/13 Laney Jha 01/26/18 documented as of this encounter
--- OUTSIDE RECORDS SUMMARY | 2025-05-22 18:50 | XMS_ITS | Encounter Summary ---
Author Organization [employer] Address [address] [facility] [address] [place] [address] Care Team Providers Care Machine Tool Electrician Name Role Phone Brandie Evangelista DO Primary Care Provider [phone] Ed Evans PharmD Unavailable Unavail able Reason for Visit * Reason Comments Med Refill Encounter Details Date Type Department Care Team ([facility] st Contact Info) Description 07/01/2023 Refill [facility] [address] [place] [address] Brandie Evangelista DO [address] [place] [address] Chest pain, unspecified type Social History Tobacco [...] documented as of this encounter Care Teams Machine Tool Electrician Relationship Specialty Start Date End Date Brandie Evangelista DO [address] [place] [address] PCP - General Family Medicine 04/04/13 Ed vEans, BgD [address] [place] [address] Pharmacist Internal Medicine 12/10/22 07/04/23 Laney Jha 01/26/18 documented as of this encounter
--- OUTSIDE RECORDS SUMMARY | 2025-05-22 18:51 | XMS_ITS | Encounter Summary ---
Author Organization [employer] Address [address] [place] [address] [address] [place] [address] Care Team Providers Care Command Post Craftsman Name Role Phone Brandie Evangelista DO Primary Care Provider [phone] Ed Evans PharmD Unavailable Unavail able Reason for Visit * Reason Onset Date Comments Appointment Request 09/29/2022 [facility] Loss of Consciousness Form 09/29/2022 I called the pt to ask if he picked up a new form at the [facility], because the one that was previously brought to [facility] is outdated. Sheryl, his DISABILITY RATER, answered and stated that he has not picked one up, because he thought that the last one that was brought in was still at the forms dept. I informed her that the form has been filed in his chart because it is outdated, therefore he needs to provide a new form. A new form will be printed out from the [facility] website, and the pt will come in to sign a new release. Encounter Details Date Type Department Care Team (Late st Contact Info) Description 09/29/2022 Telephone [facility] [address] [place], [place] [phone] Brandie Evangelista DO [address] [place], [place] [phone] Appointment Request; [facility] Loss of Consciousness Form (I called the pt to ask if he picked up a new form at the [facility], because the one that was previously brought to [facility] is outdated. Sheryl, his DISABILITY RATER, answered and stated that he has not picked one up, because he thought that the last one that was brought in was still at the forms dept. I informed her that the form has been filed in his chart because it is outdated, therefore he needs to provide a new form. A new form will be printed out from the [facility] website, and the pt will [...] on filedocumented in this encounter Care Teams Command Post Craftsman Relationship Specialty Start Date End Date Brandie Evangelista DO [address] [place] [address] PCP - General Family Medicine 04/04/13 Ed Evans PharmD [address] [place] [address] Pharmacist Internal Medicine 12/10/22 07/04/23 Laney Jha 01/26/18 documented as of this encounter
--- OUTSIDE RECORDS SUMMARY | 2025-06-16 20:00 | XMS_ITS | Clinical Summary ---
Author Organization Unknown Care Team Providers Care Tool Clerk Name Role Phone BETSY SANDOVAL, DANE Unavailable Unavailable TORRI GARRIDO, YAMILE Unavailable Unavailable TROY HUMPHREYS, BISI Unavailable Unavailable KWAKU RN, REG. 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 8-27 00:00: 00 CHRONIC OBSTRUCTIVE PULMONARY DISEASE, UNSPECIFIED Active 07-26 00:00: 00 TYPE 2 DIABETES MELLITUS WITHOUT COMPLICATION S Active 07-26 00:00: 00 HYPOTHYROIDI SM, UNSPECIFIED Active 07-26 00:00: 00 HISTORY OF FALLING Active 07-26 00:00: 00 [employer]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 [...] 09-22 00:00: 00 08-30 23:59 :00 No [id number] 2 tablet EVERY 6 HOURS 2 tablet EVERY 6 HOURS (route: oral) Med Classific ation: Analgesic , Anti-infl ammatory or Antipyret ic aspirin 500 mg tablet,huy yed release 09-22 00:00: 00 08-30 23:59 :00 No [id number] 1 tablet DAILY 1 tablet DAILY (route: oral) Med Classific ation: Analgesic , Anti-infl ammatory or Antipyret ic atorvastati n 40 mg tablet 09-22 00:00: 00 05-19 23:59 :00 No [id number] 1 tablet BEDTIME 1 tablet BEDTIME (route: oral) Med Classific ation: Cardiovas cular Therapy Agents Colace 100 mg capsule 09-22 00:00: 00 Yes [id number] 1 capsule 2 TIMES DAILY 1 capsule 2 TIMES DAILY (route: oral) Med Classific ation: Gastroint estinal Therapy Agents duloxetine 60 mg capsule,del ayed release 09-22 00:00: 00 08-30 23:59 :00 No [id number] 2 capsule BEDTIME 2 capsule BEDTIME (route: oral) Med Classific ation: Central Nervous System Agents ferrous sulfate 325 mg (65 mg iron) tablet 01-15 00:00: 00 05-19 23:59 :00 No [id number] 1 tablet 2 TIMES DAILY 1 tablet 2 TIMES DAILY (route: oral) Med Classific ation: Electroly te Balance-N utritiona l Products finasteride 5 mg tablet 11-16 00:00: 00 05-19 23:59 :00 No [id number] 1 tablet DAILY 1 tablet DAILY (route: oral) Med Classific ation: Genitouri nary Therapy tamsulosin 0.4 mg capsule 09-22 00:00: 00 05-19 23:59 :00 No [id number] 1 capsule DAILY 1 capsule DAILY (route: oral) Med Classific ation: Genitouri nary Therapy furosemide 40 mg tablet 01-21 00:00: 00 05-19 23:59 :00 No [id number] 1 tablet DAILY 1 tablet DAILY (route: oral) Med Classific ation: Cardiovas cular Therapy Agents gabapentin 100 mg capsule 01-21 00:00: 05-19 23:59 :00 No [id number] 1 capsule BEDTIME 1 capsule BEDTIME (route: oral) Med Classific ation: Central Nervous System Agents ipratropium 0.5 mg-albutero l 3 mg (2.5 mg base)/3 mL nebulizatio n soln 01-15 00:00: 00 08-30 23:59 :00 No [id number] Per instruc tions EVERY 4 HOURS NEEDED Per instructio ns EVERY 4 HOURS NEEDED (route: inhalation ) Med Classific ation: Respirato ry Therapy Agents isosorbide mononitrate ER 60 mg tablet,exte nded release 24 hr 09-22 00:00: 00 10-29 23:59 :00 No [id number] 1 tablet DAILY 1 tablet DAILY (route: oral) Med Classific ation: Cardiovas cular Therapy Agents levothyroxi ne 75 mcg tablet 09-22 00:00: 00 05-19 23:59 :00 No [id number] 1 tablet DAILY 1 tablet DAILY (route: oral) Med Classific ation: Endocrine lisinopril 30 mg tablet 01-19 00:00: 00 10-29 23:59 :00 No [id number] 1 tablet DAILY 1 tablet DAILY (route: oral) Med Classific ation: Cardiovas cular Therapy Agents meclizine 25 mg tablet 09-22 00:00: 00 08-30 23:59 :00 No [id number] 1 tablet 3 TIMES DAILY 1 tablet 3 TIMES DAILY (route: oral) Med Classific ation: Gastroint estinal Therapy Agents metformin 850 mg tablet 01-15 00:00: 00 02-17 23:59 :00 No [id number] 1 tablet 2 TIMES DAILY 1 tablet 2 TIMES DAILY (route: oral) Med Classific ation: Endocrine metoprolol succinate ER 100 mg tablet,exte nded release 24 hr 10-02 00:00: 00 10-29 23:59 :00 No [id number] 1 tablet DAILY 1 tablet DAILY (route: oral) Med Classific ation: Cardiovas cular Therapy Agents Multivitami n 50 Plus tablet 09-22 00:00: 00 08-30 23:59 :00 No [id number] 1 tablet Daily 1 tablet Daily (route: oral) Med Classific ation: Electroly te Balance-N utritiona l Products nitroglycer in 0.4 mg sublingual tablet 09-22 00:00: 00 05-19 23:59 :00 No [id number] 1 tablet Every 5 min 1 tablet Every 5 min (route: sublingual ) Med Classific ation: Cardiovas cular Therapy Agents Proventil HFA 90 mcg/actuati on aerosol inhaler 09-22 00:00: 00 05-19 23:59 :00 No [id number] 2 puff 4 TIMES DAILY 2 puff 4 TIMES DAILY (route: inhalation ) Med Classific ation: Respirato ry Therapy Agents Seroquel 100 mg tablet 09-22 00:00: 00 11-23 23:59 :00 No [id number] 1 tablet BEDTIME 1 tablet BEDTIME (route: oral) Med Classific ation: Central Nervous System Agents Spiriva with HandiHaler 18 mcg and inhalation capsules 09-22 00:00: 00 05-19 23:59 :00 No [id number] 1 inhalat ion DAILY 1 inhalation DAILY (route: inhalation ) Med Classific ation: Respirato ry Therapy Agents Symbicort 160 mcg-4.5 mcg/actuati on HFA aerosol inhaler 09-22 00:00: 00 05-19 23:59 :00 No [id number] 2 puff 2 TIMES DAILY 2 puff 2 TIMES DAILY (route: inhalation ) Med Classific ation: Respirato ry Therapy Agents Vitamin D3 50 mcg (2,000 unit) tablet 09-22 00:00: 00 Yes [id number] 1 tablet DAILY 1 tablet DAILY (route: oral) Med Classific ation: Electroly te Balance-N utritiona l Products Zyrtec 10 mg tablet 09-22 00:00: 00 Yes [id number] 1 tablet DAILY 1 tablet DAILY (route: oral) Med Classific ation: Respirato ry Therapy Agents ipratropium 0.5 mg-albutero l 3 mg (2.5 mg base)/3 mL nebulizatio n soln 09-22 00:00: 00 05-19 23:59 :00 No [id number] Per instruc tions EVERY 4 HOURS Per instructio ns EVERY 4 HOURS (route: inhalation ) Med Classific ation: Respirato ry Therapy Agents metoprolol succinate ER 100 mg tablet,exte nded release 24 hr 09-22 00:00: 00 Yes [id number] 1 tablet BEDTIME 1 tablet BEDTIME (route: oral) Med Classific ation: Cardiovas cular Therapy Agents Multi Vitamin 9 mg iron/15 mL oral liquid 09-18 00:00: 00 08-30 23:59 :00 No [id number] Per instruc tions DAILY Per instructio ns DAILY (route: oral) Med Classific ation: Electroly te Balance-N utritiona l Products hydralazine 25 mg tablet 03-18 00:00: 00 08-05 23:59 :00 No [id number] 1 tablet 2 TIMES DAILY 1 tablet 2 TIMES DAILY (route: oral) Med Classific ation: Cardiovas cular Therapy Agents hydralazine 50 mg tablet 08-05 00:00: 00 10-29 23:59 :00 No [id number] 1.5 tablet 3 TIMES DAILY 1.5 tablet 3 TIMES DAILY (route: oral) Med Classific ation: Cardiovas cular Therapy Agents baclofen 10 mg tablet 10-29 00:00: 00 08-30 23:59 :00 No [id number] 1 tablet 3 TIMES DAILY 1 tablet 3 TIMES DAILY (route: oral) Med Classific ation: Locomotor System hydralazine 100 mg tablet 10-29 00:00: 00 08-30 23:59 :00 No [id number] 1 tablet 4 TIMES A WEEK 1 tablet 4 TIMES A WEEK (route: oral) Med Classific ation: Cardiovas cular Therapy Agents isosorbide mononitrate ER 60 mg tablet,exte nded release 24 hr 10-29 00:00: 00 05-19 23:59 :00 No [id number] 1.5 tablet DAILY 1.5 tablet DAILY (route: oral) Med Classific ation: Cardiovas cular Therapy Agents lisinopril 10 mg tablet 10-29 00:00: 00 05-22 23:59 :00 No [id number] 1 tablet DAILY 1 tablet DAILY (route: oral) Med Classific ation: Cardiovas cular Therapy Agents montelukast 10 mg tablet 10-29 00:00: 00 05-19 23:59 :00 No [id number] 1 tablet DAILY 1 tablet DAILY (route: oral) Med Classific ation: Respirato ry Therapy Agents temazepam 30 mg capsule 10-29 00:00: 00 08-31 23:59 :00 No [id number] 1 capsule BEDTIME 1 capsule BEDTIME (route: oral) Med Classific ation: Central Nervous System Agents trazodone 150 mg tablet 10-29 00:00: 00 11-23 23:59 :00 No [id number] 1 tablet BEDTIME 1 tablet BEDTIME (route: oral) Med Classific ation: Central Nervous System Agents Vitamin C 250 mg tablet 10-29 00:00: 00 05-19 23:59 :00 No [id number] 1 tablet 2 TIMES DAILY 1 tablet 2 TIMES DAILY (route: oral) Med Classific ation: Electroly te Balance-N utritiona l Products metformin 850 mg tablet 02-17 00:00: 00 08-30 23:59 :00 No [id number] 1 tablet DAILY 1 tablet DAILY (route: oral) Med Classific ation: Endocrine Lasix 40 mg tablet 2-18 00:00: 00 09-19 23:59 :00 No [id number] 40 mg 2 TIMES DAILY 40 mg 2 TIMES DAILY (route: oral) Med Classific ation: Cardiovas cular Therapy Agents Topamax 25 mg tablet 2-23 00:00: 00 08-31 23:59 :00 No [id number] 25 mg BEDTIME 25 mg BEDTIME (route: oral) Med Classific ation: Central Nervous System Agents temazepam 30 mg capsule 3- 00:00: 00 08-31 23:59 :00 No [id number] 30 mg BEDTIME 30 mg BEDTIME (route: oral) Med Classific ation: Central Nervous System Agents trazodone 150 mg tablet 10-01 00:00: 00 12-29 23:59 :00 No [id number] 150 mg BEDTIME 150 mg BEDTIME (route: oral) Med Classific ation: Central Nervous System Agents acetaminoph en ER 650 mg tablet,exte nded release 09-02 00:00: 00 05-19 23:59 :00 No [id number] 1 tablet EVERY 8 HOURS 1 tablet EVERY 8 HOURS (route: oral) Med Classific ation: Analgesic , Anti-infl ammatory or Antipyret ic [place] 0.025 % (0.035 %) eye drops 09-02 00:00: 00 05-19 23:59 :00 No [id number] 1 drops 2 TIMES DAILY 1 drops 2 TIMES DAILY (route: ophthalmic (eye)) Med Classific ation: Ophthalmi c Agents albuterol sulfate 2.5 mg/3 mL (0.083 %) solution for nebulizatio n 2 00:00: 00 05-19 23:59 :00 No [id number] Per instruc tions EVERY 6 HOURS Per instructio ns EVERY 6 HOURS (route: inhalation ) Med Classific ation: Respirato ry Therapy Agents aspirin 81 mg tablet,huy yed release 2-08 00:00: 00 05-19 23:59 :00 No [id number] 1 tablet DAILY 1 tablet DAILY (route: oral) Med Classific ation: Hematolog ical Agents baclofen 10 mg tablet 2-08 00:00: 00 05-19 23:59 :00 No [id number] 1 tablet 3 TIMES DAILY 1 tablet 3 TIMES DAILY (route: oral) Med Classific ation: Locomotor System Centrum Silver 0.4 mg-300 mcg-250 mcg tablet 2-08 00:00: 00 05-19 23:59 :00 No [id number] 1 tablet DAILY 1 tablet DAILY (route: oral) Med Classific ation: Electroly te Balance-N utritiona l Products duloxetine 60 mg capsule,del ayed release 2- 00:00: 00 05-19 23:59 :00 No [id number] 2 capsule BEDTIME 2 capsule BEDTIME (route: oral) Med Classific ation: Central Nervous System Agents Flonase Allergy Relief 50 mcg/actuati on nasal spray,suspe nsion 2- 00:00: 00 05-19 23:59 :00 No [id number] 2 spray DIRECTED 2 spray DIRECTED (route: nasal) Med Classific ation: Respirato ry Therapy Agents glucose 4 gram chewable tablet 2- 00:00: 00 05-19 23:59 :00 No [id number] 2-4 tablet NEEDED 2-4 tablet NEEDED (route: oral) Med Classific ation: Endocrine hydralazine 100 mg tablet 2-08 00:00: 00 05-19 23:59 :00 No [id number] 1 tablet 3 TIMES DAILY 1 tablet 3 TIMES DAILY (route: oral) Med Classific ation: Cardiovas cular Therapy Agents meclizine 25 mg tablet 2-08 00:00: 00 05-19 23:59 :00 No [id number] 1 tablet 3 TIMES DAILY 1 tablet 3 TIMES DAILY (route: oral) Med Classific ation: Gastroint estinal Therapy Agents metformin 500 mg tablet 2-08 00:00: 00 05-19 23:59 :00 No [id number] 1 tablet 3 TIMES DAILY 1 tablet 3 TIMES DAILY (route: oral) Med Classific ation: Endocrine Miralax 17 gram/dose oral powder 2-07 00:00: 00 05-19 23:59 :00 No [id number] 17 gram NEEDED 17 gram NEEDED (route: oral) Med Classific ation: Gastroint estinal Therapy Agents omeprazole 40 mg capsule,del ayed release 2 00:00: 00 05-19 23:59 :00 No [id number] 1 capsule DAILY 1 capsule DAILY (route: oral) Med Classific ation: Gastroint estinal Therapy Agents prazosin 5 mg capsule 09-01 00:00: 00 05-19 23:59 :00 No [id number] 1 capsule DAILY 1 capsule DAILY (route: oral) Med Classific ation: Cardiovas cular Therapy Agents Tums E-X 300 mg (750 mg) chewable tablet 09-01 00:00: 00 05-19 23:59 :00 No [id number] 1-2 tablet NEEDED 1-2 tablet NEEDED (route: oral) Med Classific ation: Gastroint estinal Therapy Agents trazodone 100 mg tablet 12-20 00:00: 00 05-19 23:59 :00 No [id number] 1 tablet BEDTIME 1 tablet BEDTIME (route: oral) Med Classific ation: Central Nervous System Agents albuterol sulfate 2.5 mg/3 mL (0.083 %) solution for nebulizatio n 2024-07 00:00: 00 Yes [id number] Per instruc tions EVERY 6 HOURS Per instructio ns EVERY 6 HOURS (route: inhalation ) Med Classific ation: Respirato ry Therapy Agents aspirin 81 mg tablet,huy yed release 2024-07 00:00: 00 Yes [id number] 1 tablet EVERY AM 1 tablet EVERY AM (route: oral) Med Classific ation: Hematolog ical Agents atorvastati n 40 mg tablet 2024-07 00:00: 00 Yes [id number] 1 tablet EVERY PM 1 tablet EVERY PM (route: oral) Med Classific ation: Cardiovas cular Therapy Agents Cerovite Senior 0.4 mg-300 mcg-250 mcg tablet 2024-07 00:00: 00 Yes [id number] 1 tablet EVERY AM 1 tablet EVERY AM (route: oral) Med Classific ation: Electroly te Balance-N utritiona l Products clonidine HCl 0.2 mg tablet 2024-07 00:00: 00 Yes [id number] 1 tablet EVERY AM 1 tablet EVERY AM (route: oral) Med Classific ation: Cardiovas cular Therapy Agents diltiazem ER 240 mg capsule,24 hr,extended release 2024-07 00:00: 00 Yes [id number] 1 capsule EVERY AM 1 capsule EVERY AM (route: oral) Med Classific ation: Cardiovas cular Therapy Agents duloxetine 60 mg capsule,del ayed release 2024-07 00:00: 00 Yes [id number] 2 capsule BEDTIME 2 capsule BEDTIME (route: oral) Med Classific ation: Central Nervous System Agents ferrous sulfate 325 mg (65 mg iron) tablet 2024-07 00:00: 00 Yes [id number] 1 tablet 2 TIMES DAILY 1 tablet 2 TIMES DAILY (route: oral) Med Classific ation: Electroly te Balance-N utritiona l Products Flonase Allergy Relief 50 mcg/actuati on nasal spray,suspe nsion 2024-07 00:00: 00 Yes [id number] 2 spray DAILY 2 spray DAILY (route: nasal) Med Classific ation: Respirato ry Therapy Agents furosemide 40 mg tablet 2024-07 00:00: 00 Yes [id number] 1 tablet EVERY PM 1 tablet EVERY PM (route: oral) Med Classific ation: Cardiovas cular Therapy Agents gabapentin 100 mg capsule 2024-07 00:00: 00 Yes [id number] 1 capsule BEDTIME 1 capsule BEDTIME (route: oral) Med Classific ation: Central Nervous System Agents hydralazine 10 mg tablet 2024-07 00:00: 00 Yes [id number] 1 tablet 3 TIMES DAILY 1 tablet 3 TIMES DAILY (route: oral) Med Classific ation: Cardiovas cular Therapy Agents isosorbide mononitrate ER 60 mg tablet,exte nded release 24 hr 2024-07 00:00: 00 Yes [id number] 1 tablet NOON 1 tablet NOON (route: oral) Med Classific ation: Cardiovas cular Therapy Agents levothyroxi ne 75 mcg tablet 2024-07 00:00: 00 Yes [id number] 1 tablet EVERY AM 1 tablet EVERY AM (route: oral) Med Classific ation: Endocrine meclizine 25 mg tablet 2024-07 00:00: 00 Yes [id number] 1 tablet 3 TIMES DAILY 1 tablet 3 TIMES DAILY (route: oral) Med Classific ation: Gastroint estinal Therapy Agents metformin 500 mg tablet 2024-07 00:00: 00 Yes [id number] 1 tablet 3 TIMES DAILY 1 tablet 3 TIMES DAILY (route: oral) Med Classific ation: Endocrine Miralax 17 gram/dose oral powder 2024-07 00:00: 00 Yes [id number] 17 gram NEEDED 17 gram A S NEEDED (route: oral) Med Classific ation: Gastroint estinal Therapy Agents montelukast 10 mg tablet 2024-07 00:00: 00 Yes [id number] 1 tablet EVERY PM 1 tablet EVERY PM (route: oral) Med Classific ation: Respirato ry Therapy Agents omeprazole 40 mg capsule,del ayed release 2024-07 00:00: 00 Yes [id number] 1 capsule EVERY PM 1 capsule EVERY PM (route: oral) Med Classific ation: Gastroint estinal Therapy Agents prazosin 5 mg capsule 2024-07 00:00: 00 Yes [id number] 1 capsule EVERY AM 1 capsule EVERY AM (route: oral) Med Classific ation: Cardiovas cular Therapy Agents Proventil HFA 90 mcg/actuati on aerosol inhaler 2024-07 00:00: 00 Yes [id number] 2 puff 4 TIMES DAILY 2 puff 4 TIMES DAILY (route: inhalation ) Med Classific ation: Respirato ry Therapy Agents Spiriva with HandiHaler 18 mcg and inhalation capsules 2024-07 00:00: 00 Yes [id number] 1 inhalat ion NOON 1 inhalation NOON (route: inhalation ) Med Classific ation: Respirato ry Therapy Agents Symbicort 160 mcg-4.5 mcg/actuati on HFA aerosol inhaler 2024-07 00:00: 00 Yes [id number] 2 puff 2 TIMES DAILY 2 puff 2 TIMES DAILY (route: inhalation ) Med Classific ation: Respirato ry Therapy Agents tamsulosin 0.4 mg capsule 2024-07 00:00: 00 Yes [id number] 1 capsule EVERY AM 1 capsule EVERY AM (route: oral) Med Classific ation: Genitouri nary Therapy trazodone 100 mg tablet 2024-07 00:00: 00 Yes [id number] 1 tablet BEDTIME 1 tablet BEDTIME (route: oral) Med Classific ation: Central Nervous System Agents Vitamin C 250 mg tablet 2024-07 00:00: 00 Yes [id number] 1 tablet 2 TIMES DAILY 1 tablet 2 TIMES DAILY (route: oral) Med Classific ation: Electroly te Balance-N utritiona l Products Immunizations Ordered Immunization Name Filled Immunization Name Date Status Comments Refusal Reason INFLUENZA, TIV (INACTIVATED) 2018-06-08 00:00:00 Vital Signs Vital Name Observation Time Observation Value Commen ts Temperature 2025-05-17 09:50:00.000 97.1 [degF] Temperature 2025-05-10 09:43:00.000 97.3 [degF] Temperature 2025-05-03 09:44:00.000 97.2 [degF] Temperature 2025-04-26 10:17:00.000 97.1 [degF] Temperature 2025-04-19 10:12:00.000 96.8 [degF] Pulse 2025-05-17 09:50:00.000 87 /min Pulse 2025-05-10 09:43:00.000 79 /min Pulse 2025-05-03 09:44:00.000 94 /min Pulse 2025-04-26 10:17:00.000 92 /min Pulse 2025-04-19 10:12:00.000 86 /min O2 Saturation (%) 2025-05-17 09:50:00.000 97 % O2 Saturation (%) 2025-05-10 09:43:00.000 97 % O2 Saturation (%) 2025-05-03 09:44:00.000 96 % O2 Saturation (%) 2025-04-26 10:17:00.000 97 % O2 Saturation (%) 2025-04-19 10:12:00.000 97 % Respirations 2025-05-17 09:50:00.000 20 /min Respirations 2025-05-10 09:43:00.000 18 /min Respirations 2025-05-03 09:44:00.000 20 /min Respirations 2025-04-26 10:17:00.000 20 /min Respirations 2025-04-19 10:12:00.000 18 /min Systolic Blood Pressure 2025-05-17 09:50:00.000 160 mm [Hg] Systolic Blood Pressure 2025-05-10 09:43:00.000 160 mm [Hg] Systolic Blood Pressure 2025-05-03 09:44:00.000 160 mm [Hg] Systolic Blood Pressure 2025-04-26 10:17:00.000 170 mm [Hg] Systolic Blood Pressure 2025-04-19 10:12:00.000 140 mm [Hg] Diastolic Blood Pressure 2025-05-17 09:50:00.000 90 mm [Hg] Diastolic Blood Pressure 2025-05-10 09:43:00.000 100 m m[Hg] Diastolic Blood Pressure 2025-05-03 09:44:00.000 90 mm [Hg] Diastolic Blood Pressure 2025-04-26 10:17:00.000 100 m m[Hg] Diastolic Blood Pressure 2025-04-19 10:12:00.000 80 mm [Hg] Plan of Treatment Planned Activity [...] OF PATIENTS MENTAL/BEHAVIORAL STATUS, ASSESS VITAL SIGNS EVERY VISIT, ALLOW 2 PRNS FOR MEDICATION MANAGEMENT. [code = SKILLED NURSE TO O/A OF PATIENTS MENTAL/BEHAVIORAL STATUS, ASSESS VITAL SIGNS EVERY VISIT, ALLOW 2 PRNS FOR MEDICATION MANAGEMENT.] Future Scheduled Test SKILLED NU RSE WILL MAINTAIN SITUATIONAL AWARENESS FOR SAFETY AND WILL NOTIFY CLINICAL TOWER TECHNICIAN AND PHYSICIAN/PROVIDER WITH ANY CHANGE IN CONDITION. [code = SKILLED NURSE WILL MAINTAIN SITUATIONAL AWARENESS FOR SAFETY AND WILL NOTIFY CLINICAL TOWER TECHNICIAN AND PHYSICIAN/PROVIDER WITH ANY CHANGE IN CONDITION.] Future Scheduled Test SKILLED NU RSE FOR O/A OF GENERAL HEALTH STATUS OF PAIN, CARDIAC, RESPIRATORY, GASTROINTESTINAL, GENITOURINARY, SKIN, NEUROLOGIC, ENDOCRINE SYSTEMS TO IDENTIFY CHANGES ASSOCIATED WITH EXACERBATION FOR EARLY INTERVENTION OF COMPLICATIONS. [code = SKILLED NURSE FOR O/A OF GENERAL HEALTH STATUS OF PAIN, CARDIAC, RESPIRATORY, GASTROINTESTINAL, GENITOURINARY, SKIN, NEUROLOGIC, ENDOCRINE SYSTEMS TO IDENTIFY CHANGES ASSOCIATED WITH EXACERBATION FOR EARLY INTERVENTION OF COMPLICATIONS.] Future Scheduled Test SKILLED NU RSE TO PRE-POUR MEDICATION SHEET IN MEDMINDER MACHINE PER MEDICATION LIST WEEKLY. [code = SKILLED NURSE TO PRE-POUR MEDICATION SHEET IN MEDMINDER MACHINE PER MEDICATION LIST WEEKLY.] Future Scheduled Test SKILLED NU RSE FOR [...] INTERVENTION.] Future Scheduled Test SKILLED NU RSE FOR O/A AND SKILLED TEACHING OF COPING SKILLS TO MANAGE ANXIETY AND MAINTAIN SAFETY. [code = SKILLED NURSE FOR O/A AND SKILLED TEACHING OF COPING SKILLS TO MANAGE ANXIETY AND MAINTAIN SAFETY.] Future Scheduled Test SKILLED NU RSE FOR O/A OF CLIENT'S SLEEP PATTERNS. MAY TEACH INTERVENTIONS R/T ACQUIRING IMPROVED REST [code = SKILLED NURSE FOR O/A OF CLIENT'S SLEEP PATTERNS. MAY TEACH INTERVENTIONS R/T ACQUIRING IMPROVED REST] Future Scheduled Test SKILLED NU RSE TO ASSESS PATIENT S PSYCHOSOCIAL STATUS TO IDENTIFY POTENTIAL ISSUES THAT MAY COMPLICATE THE PROVISION OF THE PLAN OF CARE INCLUDING THE PATIENT S ABILITY TO ACCESS COMMUNITY RESOURCES AND PSYCHOSOCIAL SUPPORT SERVICES. [code = SKILLED NURSE TO ASSESS PATIENT S PSYCHOSOCIAL STATUS TO IDENTIFY POTENTIAL ISSUES THAT MAY COMPLICATE THE PROVISION OF THE PLAN OF CARE INCLUDING THE PATIENT S ABILITY TO ACCESS COMMUNITY RESOURCES AND PSYCHOSOCIAL SUPPORT SERVICES.] Future Scheduled Test SKILLED NU RSE FOR O/A OF CLIENT'S SOCIAL ISOLATION AND PROVIDE ASSISTANCE TO CLIENT IN DEVELOPMENT OF PLANNED ACTIVITIES [code = SKILLED NURSE FOR O/A OF CLIENT'S SOCIAL ISOLATION AND PROVIDE ASSISTANCE TO CLIENT IN DEVELOPMENT OF PLANNED ACTIVITIES] Future Scheduled Test SKILLED NU RSE MAY PICKUP AND TRANSPORT MEDICATIONS [code = SKILLED NURSE MAY PICKUP AND TRANSPORT MEDICATIONS] Goal 2018-11-17 Patient Goal - P ATIENT WOULD LIKE TO GET RELIEF FROM HIS CHRONIC DEPRESSION Goal 2019-01-17 Patient Goal - P ATIENT [...] GET HEALTHY AND STAY THAT WAY Goal 2024-08-17 Patient Goal - T O GET HEALTHY AND STAY THAT WAY Goal 2024-10-19 Patient Goal - T O GET HEALTHY AND STAY THAT WAY Goal 2024-12-19 Patient Goal - T O GET HEALTHY AND STAY THAT WAY Goal 2025-02-15 Patient Goal - T O GET HEALTHY AND STAY THAT WAY Goal 2025-04-17 Patient Goal - T O GET HEALTHY AND STAY THAT WAY Goal Patient Goal - T O GET HEALTHY AND STAY THAT WAY Goal Provider Goal - A PLAN OF CARE WILL BE ESTABLISHED THAT MEETS PATIENT'S RETIREMENT NEEDS AND INCLUDES PATIENT GOAL FOR HOME HEALTH. Goal Provider Goal - ALTERED MENTAL/BEHAVIORAL STATUS WILL BE IDENTIFIED PROMPTLY AND INTERVENTION INITIATED QUICKLY TO MINIMIZE ASSOCIATED RISKS THROUGHOUT CERTIFICATION PERIOD. Goal Provider Goal - PATIENT WILL REMAIN SAFE IN THE COMMUNITY AND WILL BE FREE OF DANGER TO SELF AND OTHERS THROUGHOUT THE CERTIFICATION PERIOD. Goal Provider Goal - CHANGE IN GENERAL HEALTH STATUS WILL BE IDENTIFIED AND REPORTED TO PHYSICIAN FOR PROMPT INTERVENTION TO MINIMIZE ASSOCIATED RISKS THROUGHOUT CERTIFICATION PERIOD. Goal Provider Goal - PATIENT WILL COMPLY WITH MEDICATION WHEN SKILLED NURSE PRE-POURS MEDICATION THROUGHOUT CERTIFICATION PERIOD. Goal Provider Goal - PATIENT WILL REMAIN SAFE WITHOUT DECOMPENSATION IN DEPRESSIVE CONDITION, WHILE MAINTAINING OPTIMAL LEVEL OF MENTAL HEALTH AND WELL BEING THROUGHOUT CERTIFICATION PERIOD. Goal Provider Goal - PATIENT WILL BE ABLE TO PERFORM DAILY FUNCTIONS AND HAVE OPTIMAL IMPROVEMENT IN LEVEL OF ANXIETY THROUGHOUT CERTIFICATION PERIOD. Goal Provider Goal - PATIENT WILL REPORT AT LEAST 6-8 HOURS A NIGHT, RESTFUL SLEEP PATTERNS ACHIEVED USING THERAPEUTIC INTERVENTIONS BEFORE THE END OF THE CERTIFICATION PERIOD. Goal Provider Goal - PSYCHOSOCIAL NEEDS WILL BE IDENTIFIED AND PLAN IMPLEMENTED TO MINIMIZE RISK THROUGHOUT CERTIFICATION PERIOD. Goal Provider Goal - PATIENT WILL DEMONSTRATE AN INCREASED INTEREST IN SOCIALIZATION AND ACTIVITIES BY THE END OF THE CERTIFICATION PERIOD. Goal Provider Goal - SKILLED NURSE PICKED UP AND TRANSPORTED MEDICATIONS FOR SAFETY. Encounters Start Date/Time End Date/Time Encounter Type Admission Type Attending [facility] Care Department Encounter ID Discharge Date Discharge Status Discharge Condition Discharge Reason Percent Goals Met 2025-04-19 00:00:00 2025-06-17 00:00:00 Outpatient RECERTIFIC [facility] [id number]
== END 2025-05-22 15:10 | disposition home or self-care (01) ==
LOC: HO.HPS 14:28
PROVIDERS: PCP Family Medicine; Visit Provider Internal Medicine
DX: J44.9 Chronic obstructive pulmonary disease, unspecified (principal); G47.33 Obstructive sleep apnea (adult) (pediatric); J30.9 Allergic rhinitis, unspecified; E66.9 Obesity, unspecified
CPT/HCPCS: 99213

== ENCOUNTER → 2025-05-22 14:28 | Outpatient (BNVA) | payer OTHER, SELFPAY | PROVIDERS: PCP Family Medicine; Visit Provider Internal Medicine | DX: J44.9 Chronic obstructive pulmonary disease, unspecified (principal); G47.33 Obstructive sleep apnea (adult) (pediatric); E66.9 Obesity, unspecified; Z68.32 Body mass index [BMI] 32.0-32.9, adult | CPT/HCPCS: 99212 ==